=== PATIENT | female | born 1960 | race Caucasian/White ===

== ENCOUNTER 2016-11-10 23:19 | Emergency (ER) | payer OTHER ==
[2016-11-10 23:29] VITALS: TEMP 99.1
[2016-11-10] MEDS ORDERED: SODIUM CHLORIDE 0.9% 1,000 ML IV STA (23:46)
[2016-11-10] MEDS ORDERED: ONDANSETRON 4 MG/2 ML VIAL IVP STA (23:46)
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
[2016-11-11 00:27] LABS: Basophils % (A) 1 %; CH 33.4; CHCM 34.7; Eosinophils % (A) 1 %; HCT 43.1 % (34.0-46.0); HDW 2.31; HGB 14.3 gm/dL (11.4-16.0); Luc # (Auto) 0.08; Luc % (Auto) 3; Lymphocytes # (A) 0.9 k/uL (1.0-4.8); Lymphocytes % (A) 32 %; MCH 32.1 pg (25.0-35.0); MCHC 33.3 g/dL (31.0-37.0); MCV 96.6 fL (80.0-100.0); Mean Platelet Volume 9.1; Monocytes # (A) 0.2 k/uL (0-1.0); Monocytes % (A) 8 %; Neutrophils # (A) 1.6 k/uL (1.3-7.7); Neutrophils % (A) 56 %; RBC 4.46 m/uL (3.80-5.40); RDW 14.2 % (11.5-15.5); WBC 2.8 k/uL (3.8-10.6); WBC (Perox) 2.83
--- NOTE | 2016-11-11 00:36 | CT ---
EXAMINATION TYPE: CT brain wo con DATE OF EXAM: 11/11/2016 12:03 AM COMPARISON: 04/11/2016 HISTORY: syncopal episode, positive LOC, EtOH CT DLP: 961 mGycm Automated exposure control for dose reduction was used. FINDINGS: There is no acute intracranial hemorrhage, mass effect, or midline shift identified. The cortical sul ci and ventricles are slightly prominent with mild atrophic changes. The globes are intact and the vi sualized sinuses are clear. Earrings are noted with multiple artifacts in the images. IMPRESSION: No acute intracranial hemorrhage, mass effect, or midline shift is seen.
[2016-11-11 00:37] LABS: ALT 182 U/L (9-52); AST 279 U/L (14-36); Alkaline Phosphatase 60 U/L (38-126); Amylase 35 U/L (30-110); Anion Gap 17 mmol/L; Blood Urea Nitrogen 10 mg/dL (7-17); Calcium 9.4 mg/dL (8.4-10.2); Carbon Dioxide 29 mmol/L (22-30); Chloride 99 mmol/L (98-107); Glucose 123 mg/dL (74-99); Magnesium 1.7 mg/dL (1.6-2.3); Non-African American GFR(MDRD) >60 (>60 ml/min/1.73 sqM); Potassium 3.6 mmol/L (3.5-5.1); Sodium 145 mmol/L (137-145); Total Bilirubin 0.6 mg/dL (0.2-1.3)
[2016-11-11 00:38] LABS: Alcohol 297 mg/dL
[2016-11-11 00:47] LABS: Creatine Kinase 417 U/L (30-135)
[2016-11-11 01:00] LABS: Creatine Kinase MB 1.3 ng/mL (0.0-2.4); Troponin I <0.012 ng/mL (0.000-0.034)
[2016-11-11 01:15] VITALS: BP 156/79; PULSE 96; RESP 18
--- NOTE | 2016-11-11 01:16 | XR ---
EXAMINATION TYPE: XR chest 1V portable DATE OF EXAM: 11/11/2016 12:03 AM COMPARISON: 08/01/2015 HISTORY: Syncope positive for ALOC EtOH. TECHNIQUE: Single frontal view of the chest is obtained. Portable AP upright FINDINGS: There is no focal air space opacity, pleural effusion, or pneumothorax seen. The cardiac silhouette size is within normal limits. The osseous structures are intact. IMPRESSION: 1. No acute process. 2. No significant interval change.
== END 2016-11-11 01:38 | disposition home or self-care (01) ==
LOC: EC 23:19
DX: F10.129 Alcohol abuse with intoxication, unspecified (principal); S09.90XA Unspecified injury of head, initial encounter; Z79.899 Other long term (current) drug therapy; J45.909 Unspecified asthma, uncomplicated; E07.9 Disorder of thyroid, unspecified; F31.9 Bipolar disorder, unspecified; F41.9 Anxiety disorder, unspecified; Z85.850 Personal history of malignant neoplasm of thyroid; Z88.1 Allergy status to other antibiotic agents; Z88.8 Allergy status to other drugs, medicaments and biological substances; X58.XXXA Exposure to other specified factors, initial encounter
CPT/HCPCS: 99285; 96374; 36415; 93005; 80053; 82150; 82550; 82553; 83690; 83735; 84484; 85025; 80320; 71010; 70450; J2405

== ENCOUNTER 2016-12-21 15:29 | Inpatient (IN) | payer MEDICAID, OTHER ==
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
[2016-12-21 17:30] LABS: ALT 237 U/L (9-52); AST 441 U/L (14-36); Alkaline Phosphatase 69 U/L (38-126); Anion Gap 19 mmol/L; Blood Urea Nitrogen 8 mg/dL (7-17); Calcium 9.5 mg/dL (8.4-10.2); Carbon Dioxide 26 mmol/L (22-30); Chloride 96 mmol/L (98-107); Glucose 82 mg/dL (74-99); Non-African American GFR(MDRD) >60 (>60 ml/min/1.73 sqM); Sodium 141 mmol/L (137-145); Total Protein 7.8 g/dL (6.3-8.2)
[2016-12-21 17:50] LABS: Aty Lym Flag Slight; CH 34.4; CHCM 35.1; HCT 38.3 % (34.0-46.0); HDW 2.11; MCH 33.4 pg (25.0-35.0); MCV 98.1 fL (80.0-100.0); Macrocytosis Slight; Mean Platelet Volume 8.3; RBC 3.91 m/uL (3.80-5.40); RDW 15.9 % (11.5-15.5); WBC 2.5 k/uL (3.8-10.6); WBC (Perox) 2.48
[2016-12-21 18:42] LABS: Add Differential Manual Differential
[2016-12-21 18:46] LABS: Nucleated Red Blood Cells 0 /100 WBC (0-0); Total Cells Counted 100
[2016-12-21 18:48] LABS: Acetaminophen <10.0 ug/mL; Salicylate <1.0 mg/dL
[2016-12-21] MEDS ORDERED: LORazepam 1 MG TAB PO STA (18:51)
[2016-12-21] MEDS: ONDANSETRON ODT 4 MG TAB PO STA (19:01)
[2016-12-21 19:03] LABS: Polychromasia Present
[2016-12-21 19:04] LABS: Large Platelets Present
[2016-12-22] MEDS ORDERED: LORazepam 1 MG TAB PO STA ×2 (03:38→09:58)
[2016-12-22] MEDS: ONDANSETRON ODT 4 MG TAB PO STA ×2 (03:45→03:49)
[2016-12-22] MEDS ORDERED: ONDANSETRON 4 MG TAB PO STA (03:46)
[2016-12-22] MEDS ORDERED: ONDANSETRON ODT 4 MG TAB PO STA (03:48)
[2016-12-22] MEDS ORDERED: MAG HYDROX/AL HYDROX/SIMETH 30 ML CUP PO PRN (05:18)
[2016-12-22] MEDS ORDERED: MAGNESIUM HYDROXIDE 2,400 MG/10 ML CUP PO PRN (05:18)
[2016-12-22] MEDS ORDERED: ZIPRASIDONE 20 MG VIAL IM PRN (05:18)
[2016-12-22] MEDS ORDERED: ACETAMINOPHEN TAB 325 MG TAB PO PRN (05:18)
[2016-12-22] MEDS ORDERED: LORazepam 1 MG TAB PO PRN (05:22)
[2016-12-22] MEDS ORDERED: LORazepam 2 MG/ML SYRINGE IM PRN (05:22)
[2016-12-22] MEDS ORDERED: LEVOTHYROXINE 100 MCG TAB PO SCH (06:30)
[2016-12-22] MEDS: LEVOTHYROXINE 100 MCG TAB PO SCH (06:43)
[2016-12-22] MEDS: LEVOTHYROXINE 75 MCG TAB PO SCH (06:43)
[2016-12-22] MEDS ORDERED: NON-FORMULARY DRUG (Levothyroxine Sodium [Synthroid] 175 MCG) PO SCH (09:00)
[2016-12-22] MEDS ORDERED: LEVOTHYROXINE 75 MCG TAB PO SCH (09:00)
[2016-12-22] MEDS ORDERED: ESCITALOPRAM 20 MG TAB PO SCH (09:00)
[2016-12-22] MEDS: lamoTRIgine 100 MG TAB PO SCH ×2 (10:00→21:31)
[2016-12-22 10:15] VITALS: BMI 29.8
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
[2016-12-22] MEDS: THIAMINE 100 MG TAB PO SCH (13:01)
[2016-12-22] MEDS: FOLIC ACID 1 MG TAB PO SCH (13:01)
[2016-12-22] MEDS ORDERED: IBUPROFEN 600 MG TAB PO PRN (14:31)
[2016-12-22] MEDS: LORazepam 1 MG TAB PO SCH ×2 (15:44→21:32)
[2016-12-22] MEDS: cloNIDine HCL 0.1 MG TAB PO PRN (16:00)
[2016-12-22] MEDS: DOXYCYCLINE 50 MG CAP PO SCH (18:35)
[2016-12-22] MEDS: traZODone HCL 100 MG TAB PO SCH (21:31)
[2016-12-22] MEDS: MONTELUKAST 10 MG TAB PO SCH (21:31)
[2016-12-22] MEDS: GABAPENTIN 100 MG CAP PO SCH (21:32)
[2016-12-23] MEDS: LEVOTHYROXINE 75 MCG TAB PO SCH (05:27)
[2016-12-23] MEDS: LEVOTHYROXINE 100 MCG TAB PO SCH (05:27)
[2016-12-23] MEDS: LORazepam 1 MG TAB PO PRN (05:27)
[2016-12-23] MEDS: DOXYCYCLINE 50 MG CAP PO SCH ×2 (08:13→16:59)
--- NOTE | 2016-12-23 09:11 | P.PN ---
Progress Note - Text Interval history: The patient is found in group she follows me to an interview room. She reports that her mood is "uneasy" she still has hopeless thoughts she still has thoughts of jumping in front of the train. She reports sleeping most of the day yesterday but plans on attending groups today. We reviewed her psychotropic medications. I did speak with the [facility] liaison and we are able to give her the Vivitrol injection we will provide a sample. We will also order a Lamictal level. Mental status exam: The patient is alert she is dressed in a T-shirt and hospital gowns. She wears eyeglasses. She continues to demonstrate tremor of her upper extremities. She states her mood is "uneasy". She continues to have hopeless thoughts and suicidal ideation. No homicidal ideation reported. She is endorsing no auditory or visual hallucinations. She has a history of hypomanic episodes but demonstrates no hypomanic or manic symptoms at this time. Insight and judgment impaired. She is oriented to person place and date. There is no verbal or physical aggressiveness demonstrated. Affect is constricted. Plan: The patient will continue on her current psychotropic medications. She will receive the Vivitrol injection today, we will order a Lamictal level. She is encouraged to participate in the milieu. She does not wish to participate in inpatient chemical dependency treatment upon discharge. She requires continued psychiatric hospitalization for safety reasons. We will continue monitoring vital signs.
[2016-12-23 09:26] LABS: Basophils % (A) 1 %; CH 33.9; CHCM 33.7; Eosinophils # (A) 0.1 k/uL (0-0.7); Eosinophils % (A) 4 %; HCT 43.5 % (34.0-46.0); HDW 2.18; HGB 14.2 gm/dL (11.4-16.0); Luc # (Auto) 0.07; Luc % (Auto) 2; Lymphocytes # (A) 0.6 k/uL (1.0-4.8); Lymphocytes % (A) 20 %; MCH 32.9 pg (25.0-35.0); MCHC 32.6 g/dL (31.0-37.0); MCV 100.8 fL (80.0-100.0); Macrocytosis Slight; Mean Platelet Volume 8.3; Monocytes # (A) 0.2 k/uL (0-1.0); Monocytes % (A) 6 %; Neutrophils # (A) 2.1 k/uL (1.3-7.7); Neutrophils % (A) 67 %; RBC 4.31 m/uL (3.80-5.40); RDW 15.6 % (11.5-15.5); WBC 3.1 k/uL (3.8-10.6); WBC (Perox) 3.01
[2016-12-23 09:32] LABS: ALT 235 U/L (9-52); AST 381 U/L (14-36); Alkaline Phosphatase 71 U/L (38-126); Anion Gap 13 mmol/L; Blood Urea Nitrogen 8 mg/dL (7-17); Calcium 9.8 mg/dL (8.4-10.2); Carbon Dioxide 32 mmol/L (22-30); Chloride 92 mmol/L (98-107); Glucose 112 mg/dL (74-99); Non-African American GFR(MDRD) >60 (>60 ml/min/1.73 sqM); Potassium 4.1 mmol/L (3.5-5.1); Sodium 137 mmol/L (137-145); Total Bilirubin 1.4 mg/dL (0.2-1.3); Total Protein 8.3 g/dL (6.3-8.2)
[2016-12-23] MEDS: ESCITALOPRAM 20 MG TAB PO SCH (10:12)
[2016-12-23] MEDS: lamoTRIgine 100 MG TAB PO SCH ×2 (10:12→20:51)
[2016-12-23] MEDS: LORazepam 1 MG TAB PO SCH ×3 (10:12→22:25)
[2016-12-23] MEDS: cloNIDine HCL 0.1 MG TAB PO PRN (10:15)
[2016-12-23] MEDS: FOLIC ACID 1 MG TAB PO SCH (12:45)
[2016-12-23] MEDS: MULTIVITAMINS, THERA 1 EACH TAB PO SCH (12:45)
[2016-12-23] MEDS: THIAMINE 100 MG TAB PO SCH (12:46)
[2016-12-23] MEDS ORDERED: NALTREXONE IM ONE (14:30)
[2016-12-23] MEDS ORDERED: VIVITROL IM ONE (14:45)
--- NOTE | 2016-12-23 15:03 | P.HPIM ---
History of Present Illness H&P Date: 12/22/16 Chief Complaint: Suicidal ideation Patient is a 56-year-old female well known to my practice who presented to [facility] due to worsening depression with suicidal ideation, she was evaluated in the emergency room and was admitted to mental health's unit voluntarily for management of depression. Patient has a known history of alcohol binge drinking, she went to rehab in October, she did well for a short while, then she started drinking again, when she has binge drinking she continues to drink until she gets sick she uses all alcohol that she can get including hairspray and cleaning products, until she starts vomiting. Patient was recently treated for acute bronchitis she still complains of some cough otherwise she denies any physical complaints She has a known history of hypothyroidism Past Medical History Past Medical History: Asthma, Cancer, Hypertension, Thyroid Disorder Additional Past Medical History / Comment(s): seasonal allergies, history of thyroid cancer-thyroidectomy, psoriasis, current breast cyst in right breast, alcoholic, left breast has stable benign tumor , BROKE RT FOOT PINKY TOE. etoh abuse History of Any Multi-Drug Resistant Organisms: None Reported Additional Past Surgical History / Comment(s): Thyroidectomy 1999, SKIN NEVI REMOVED Past Anesthesia/Blood Transfusion Reactions: Previous Problems w/ Anesthesia, Postoperative Nausea & Vomiting (PONV) Additional Past Anesthesia/Blood Transfusion Reaction / Comment(s): Pt lives with in their home. They have been together 12 yrs. Pt is normally independent. Pt is an alcoholic. She is feeling more depressed lately and ashamed of her alcoholism. PT STATED SHE IS A BINGE DRINKER AND IS A BLACK OUT DRINKER,THINKS SHE STARTED DRINKING 4-5 DAYS AGO 3 PINTS A DAY AND WHEN COMING DOWN DRANK SUAVE HAIR SPRAY( does not allow alcohol in the home so pt has drinks hand trace evidence technician or hair spray per her ). Pt no longer has a drivers license- she has had 2 DUI's. 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 She is seen at [facility] by Dr. Baez and has a councelor-NICO. She has alot of anabaptism friends. drives her to her appts. Past Psychological History: Anxiety, Bipolar, Depression Additional Psychological History / Comment(s): Multiple psychiatric admissions in the past at this hospital. PT ADMITS TO DEPRESSION AND SUIDIAL THOUGHTS, "AT NIGHT WHEN I HEAR THE TRAIN" WHEN I ASKED IF SHE HAD A PLAN SHE STATED"THE TRAIN "-current suicidal ideation 09-15-16 Smoking Status: Never smoker Past Alcohol Use History: Abuse, Daily, Heavy Additional Past Alcohol Use History / Comment(s): Pt agrees she is an alcoholic for greater than 20 years and come from a family hx of abuse. Past Drug Use History: None Reported - Past Family History Father Family Medical History: Cancer Additional Family Medical History / Comment(s): Father at age 64 of esophageal cancer. Father was an alcoholic and had cirrhosis of the liver. Mother Family Medical History: Cancer Additional Family Medical History / Comment(s): Mother of breast cancer at age 42yrs. Medications and Allergies Home Medications Medication Instructions Recorded Confirmed Type Escitalopram [Lexapro] 10 mg PO DAILY 11/10/16 12/22/16 History Levothyroxine Sodium [Synthroid] 175 mcg PO DAILY 11/10/16 12/22/16 History Allergies Allergy/AdvReac Type Severity Reaction Status Date / Time clindamycin Allergy Unknown Rash/Hives Verified 12/22/16 05:32 acetylcysteine Allergy Anaphylaxis Verified 12/22/16 05:32 [From Mucomyst] chlordiazepoxide HCl AdvReac Hallucinati Verified 12/22/16 05:32 [From Librium] ons citalopram [From Celexa] AdvReac Hallucinati Verified 12/22/16 05:32 ons diphenhydramine HCl AdvReac Rapid Verified 12/22/16 05:32 [From Benadryl] Heart Rate Physical Exam Vitals: Vital Signs Temp Pulse Pulse Pulse Resp BP BP 12/22/16 15:46 102 H 151/89 12/22/16 09:46 98.2 F 81 18 12/22/16 05:00 98.2 F 81 18 12/22/16 04:55 98.9 F 74 16 138/90 BP Pulse Ox 12/22/16 15:46 12/22/16 09:46 129/81 12/22/16 05:00 129/81 95 12/22/16 04:55 94 L Intake and Output 12/22/16 12/22/16 12/22/16 06:59 14:59 22:59 Other: Weight 76.345 kg Patient Weight 12/23/16 06:59 Weight 76.345 kg In general patient is alert and oriented 3 in no apparent distress HEENT head normocephalic and atraumatic Neck is supple no JVD no goiter no lymphadenopathy Chest exam reveals a few scattered crackles no wheezing Cardiac exam reveals regular heart sounds no gallops no murmurs Abdomen is soft nontender no organomegaly Extremity exam reveals no edema no cyanosis or clubbing Neurological examination reveals bilateral hand tremors otherwise no focal deficit at this time Results CBC & Chem 7: 12/21/16 17:00 12/21/16 17:00 Thrombosis Risk Factor Assmnt - Choose All That Apply Any of the Below Risk Factors Present?: Yes Each Factor Represents 1 point: Age 41-60 years Other Risk Factors: No Other congenital or acquired thrombophilia - If yes, enter type in comment: No Thrombosis Risk Factor Assessment Total Risk Factor Score: 1 Thrombosis Risk Factor Assessment Level: Low Risk Assessment and Plan Plan: #1 depression with suicidal ideation #2 history of alcohol binge drinking with evidence of early withdrawal #3 partially treated acute bronchitis #4 known history of hypothyroidism, TSH was elevated at 32.9 on admission #5 elevated liver enzymes will monitor At this time will resume home medications, add oral antibiotic for bronchitis Will follow during this admission
[2016-12-23] MEDS: traZODone HCL 100 MG TAB PO SCH (20:51)
[2016-12-23] MEDS: MONTELUKAST 10 MG TAB PO SCH (20:51)
[2016-12-23] MEDS: GABAPENTIN 100 MG CAP PO SCH (20:51)
[2016-12-23] MEDS: ALBUTEROL INHALER 60 PUFF/8 GM INHALER INHALATION PRN (21:20)
[2016-12-24] MEDS: LEVOTHYROXINE 75 MCG TAB PO SCH (06:32)
[2016-12-24] MEDS: LEVOTHYROXINE 100 MCG TAB PO SCH (06:33)
--- NOTE | 2016-12-24 08:45 | P.PN ---
Progress Note - Text Interval history: The patient is found in the dining room she follows me to an interview room she reports that slowly her mood is improving. She feels the suicidal thoughts are decreasing each day. Physically she is noticing that alcohol withdrawal is improving. She reports she attended approximately 3 groups yesterday sleep is improving. We reviewed her lab results her liver enzymes have been markedly elevated they did slightly decreased over the last 2 days. We are awaiting results from the Lamictal level. Mental status exam: The patient is alert she is dressed in her own clothing hygiene grooming adequate. Her tremor is much improved. Speech is fluent spontaneous nonpressured. She reports a continued depressed and anxious mood but feels that the suicidal thoughts are starting to become less severe. Affect remains constricted. She denies having any homicidal ideation there is no evidence of psychosis she does not appear to be hypomanic or manic at this time. Insight and judgment improving however she still does not wish to attend inpatient chemical dependency treatment. She demonstrates no verbal or physical aggressiveness. She remains fully oriented to person place and date. Plan: The patient will continue on her current medications we will discontinue the scheduled Ativan and use the when necessary Ativan. Vital signs reviewed they're completely within normal limits. Labs reviewed TSH is high liver enzymes are high bilirubin was mildly high. She is encouraged to continue participating in the milieu we will monitor her for safety. I anticipate she may be appropriate for discharge by Tuesday we will continue to reassess her for safety.
[2016-12-24] MEDS: DOXYCYCLINE 50 MG CAP PO SCH ×2 (09:23→17:15)
[2016-12-24] MEDS: lamoTRIgine 100 MG TAB PO SCH ×2 (09:23→20:37)
[2016-12-24] MEDS: LORazepam 1 MG TAB PO PRN (09:24)
[2016-12-24] MEDS: ESCITALOPRAM 20 MG TAB PO SCH (09:24)
[2016-12-24] MEDS: ONDANSETRON 4 MG TAB PO PRN ×2 (10:29→17:15)
[2016-12-24] MEDS: MULTIVITAMINS, THERA 1 EACH TAB PO SCH (12:26)
[2016-12-24] MEDS: FOLIC ACID 1 MG TAB PO SCH (12:26)
[2016-12-24] MEDS: THIAMINE 100 MG TAB PO SCH (12:26)
[2016-12-24] MEDS: GABAPENTIN 100 MG CAP PO SCH (20:36)
[2016-12-24] MEDS: MONTELUKAST 10 MG TAB PO SCH (20:36)
[2016-12-24] MEDS: traZODone HCL 100 MG TAB PO SCH (20:36)
[2016-12-24] MEDS: ALBUTEROL INHALER 60 PUFF/8 GM INHALER INHALATION PRN (20:40)
[2016-12-25] MEDS: LEVOTHYROXINE 75 MCG TAB PO SCH (06:21)
[2016-12-25] MEDS: LEVOTHYROXINE 100 MCG TAB PO SCH (06:21)
[2016-12-25] MEDS: ESCITALOPRAM 20 MG TAB PO SCH (08:34)
[2016-12-25] MEDS: DOXYCYCLINE 50 MG CAP PO SCH ×2 (08:34→16:30)
[2016-12-25] MEDS: lamoTRIgine 100 MG TAB PO SCH ×2 (08:34→20:51)
[2016-12-25] MEDS: cloNIDine HCL 0.1 MG TAB PO PRN ×2 (09:41→20:57)
[2016-12-25] MEDS: ALBUTEROL INHALER 60 PUFF/8 GM INHALER INHALATION PRN ×2 (10:50→18:54)
[2016-12-25] MEDS: FOLIC ACID 1 MG TAB PO SCH (12:16)
[2016-12-25] MEDS: THIAMINE 100 MG TAB PO SCH (12:16)
[2016-12-25] MEDS: MULTIVITAMINS, THERA 1 EACH TAB PO SCH (12:16)
--- NOTE | 2016-12-25 14:48 | P.PN ---
Progress Note - Text Interval history: Patient seen in cross coverage for Dr. Moran today. She reports that her mood is doing better. She relays that she was admitted with depression and thoughts of suicide. She relays the thoughts of suicide have resolved. She does talk about discharge planning for Tuesday. She is currently on Lexapro, Lamictal and trazodone. She talks about her thyroid functions being off wanting to follow-up with the specialist. Mental status exam: She is alert and cooperative with the interview. Her speech is fluent, not rapid or pressured. Her affect does show range. She denies any current thoughts of suicide. She does not voice any thoughts of harm to others. Her mood overall is improved. She does not show any agitation or evidence of psychosis. Her thought processes are organized. Plan: We'll maintain current psychotropic medications. Monitor for any side effects. Will continue to cover for Dr. Moran through the weekend.
[2016-12-25] MEDS: GABAPENTIN 100 MG CAP PO SCH (20:51)
[2016-12-25] MEDS: traZODone HCL 100 MG TAB PO SCH (20:52)
[2016-12-25] MEDS: MONTELUKAST 10 MG TAB PO SCH (20:52)
[2016-12-26] MEDS: LEVOTHYROXINE 75 MCG TAB PO SCH (05:34)
[2016-12-26] MEDS: LEVOTHYROXINE 100 MCG TAB PO SCH (05:34)
[2016-12-26] MEDS: cloNIDine HCL 0.1 MG TAB PO PRN ×2 (08:33→20:46)
[2016-12-26] MEDS: DOXYCYCLINE 50 MG CAP PO SCH ×2 (08:33→16:44)
[2016-12-26] MEDS: ESCITALOPRAM 20 MG TAB PO SCH (08:33)
[2016-12-26] MEDS: lamoTRIgine 100 MG TAB PO SCH ×2 (09:04→20:45)
[2016-12-26] MEDS: ALBUTEROL INHALER 60 PUFF/8 GM INHALER INHALATION PRN ×2 (10:17→20:54)
[2016-12-26] MEDS: MULTIVITAMINS, THERA 1 EACH TAB PO SCH (12:28)
[2016-12-26] MEDS: THIAMINE 100 MG TAB PO SCH (12:28)
[2016-12-26] MEDS: FOLIC ACID 1 MG TAB PO SCH (12:29)
--- NOTE | 2016-12-26 14:40 | P.PN ---
Progress Note - Text Interval history: Patient reports that she did sleep well last night. She also states that she is eating well. She talks about disappointment that her wasn't able to come for visiting last night because he had a flat tire but she dealt with this okay. She does talk about discharge planning for tomorrow. She does not voice any adverse psychotropic medication side effects. She seems to relay that she's doing better with her energy level. Mental status exam: She is alert and cooperative with the interview. Speech is fluent, not rapid or pressured. Thought processes are organized. Her mood is improved. She denies any thoughts of harm to self or others. No evidence of psychosis or agitation. Plan: Patient be maintained on current psychotropic medications. Dr. Moran will be resuming care of this patient starting tomorrow. Discharge planning is in place for tomorrow.
[2016-12-26] MEDS: ONDANSETRON 4 MG TAB PO PRN (18:21)
[2016-12-26] MEDS: MONTELUKAST 10 MG TAB PO SCH (20:45)
[2016-12-26] MEDS: GABAPENTIN 100 MG CAP PO SCH (20:45)
[2016-12-26] MEDS: traZODone HCL 100 MG TAB PO SCH (20:45)
[2016-12-27] MEDS: LEVOTHYROXINE 75 MCG TAB PO SCH (05:56)
[2016-12-27] MEDS: LEVOTHYROXINE 100 MCG TAB PO SCH (05:56)
[2016-12-27 05:57] VITALS: RESP 18; TEMP 97.8
[2016-12-27] MEDS: DOXYCYCLINE 50 MG CAP PO SCH (08:29)
[2016-12-27] MEDS: ESCITALOPRAM 20 MG TAB PO SCH (08:29)
[2016-12-27] MEDS: lamoTRIgine 100 MG TAB PO SCH (08:29)
[2016-12-27] MEDS: cloNIDine HCL 0.1 MG TAB PO PRN (08:29)
[2016-12-27 08:31] VITALS: BP 126/86; PULSE 71
--- NOTE | 2016-12-27 09:09 | P.DS ---
Providers Date of admission: 12/22/16 04:49 Expected date of discharge: 12/27/16 Attending physician: Ben Moran Consults: 12/22/16 05:18 Consult Physician Routine Consulting Provider: Karan Huitron Consult Reason/Comments: For H & P for Medical Follow Up Do you want consulting provider notified?: Yes, Notify in am Primary care physician: Karan Huitron - Discharge Diagnosis(es) (1) Bipolar II disorder Current Visit: Yes Status: Acute Priority: High (2) Alcohol use disorder Current Visit: Yes Status: Acute Priority: High Hospital Course: Brief summary of admission note: This patient is a 56-year-old female who was admitted to the mental health unit through the emergency room with suicidal ideation. She presented reporting a plan of wanting to stand on train tracks and wait for the next training. She describes a depressed mood low energy and has been frequently tearful. Appetite has been impaired. This occurs in the context of having a history of bipolar 2 disorder. She has a known history of alcohol use disorder and she stated she would frequently go on for to 5 day binges consuming a pint a day plus hairspray. For full details please refer to my psychiatric evaluation dated . Summary of hospital course: The patient was admitted to the mental health unit voluntarily. We reviewed her presenting symptoms and medication options. She reported that her psychotropic medications provided stability and we saw no reason to make any changes during the admission. A Lamictal level was drawn which was found to be 4.5 which is within the normal range. She presented with markedly elevated liver enzymes those were checked again and they are starting to slowly decline. She was seen by the double end tenoner setter for routine medical consultation. The patient was evaluated and treated for alcohol withdrawal symptoms. We were able to successfully taper her off of Ativan. Vital signs are stable. Of course we recommended inpatient chemical dependency treatment but the patient is not willing to attend. We were able to restart her Vivitrol injection. The patient participated in the milieu she demonstrated no agitated behavior. A support meeting is scheduled for this morning involving her . She plans to return back to [facility]. She reports a resolution of any suicidal ideation and feels she is appropriate for transition back to outpatient care. Mental status exam: The patient is an alert female appearing her stated age. She is dressed in her own clothing she is wearing eyeglasses. Eye contact is appropriate speech is fluent spontaneous nonpressured. She reports her mood is improved she is reporting no hopelessness thinking or suicidal ideation intent or plan. No reported homicidal ideation intent or plan. She is endorsing no auditory or visual hallucinations or specific delusions. There is no evidence of psychosis. There is no evidence of hypomanic or manic symptoms at this time. Her affect is more euthymic and appropriately expressive. Insight and judgment grossly intact. Cognitively she is grossly intact and is alert to person place and date. She demonstrates no verbal or physical aggressiveness. There is no psychomotor agitation except for her continued baseline tremor of her upper extremities. This tremor is greatly improved in terms of amplitude compared to admission. Impressions: 1. Bipolar 2 disorder most recent depressed, alcohol use disorder 2. Suspect borderline personality disorder traits 3. Alcohol withdrawal symptoms resolved, hypothyroidism, asthma 4. Ongoing psychosocial dysfunction due to psychiatric symptoms including alcohol use disorder Plan: The patient will be discharged mental health unit today to return home. Our recommendation was for her to participate in inpatient chemical dependency treatment but she is refusing. She plans to continue chemical dependency treatment as an outpatient with [facility]. She was given the injection of Vivitrolwhile on the mental health unit. She will continue on Lamictal 100 mg in the morning 200 mg in the evening, Lexapro 20 mg daily, trazodone 100 mg at bedtime. She will follow with her primary care physician. She is instructed not to use alcohol or any illicit drugs. The use of alcohol or any illicit drugs obviously elevates her safety risk in general. She is instructed to return to the emergency room if any acute safety concerns. Patient Condition at Discharge: Stable Plan - Discharge Summary New Discharge Prescriptions: Doxycycline [Vibramycin] 100 mg PO AC-BID #2 cap Folic Acid 1 mg PO DAILY@1200 #30 tab Levothyroxine Sodium [Synthroid] 175 mcg PO DAILY #30 tablet Thiamine [Vitamin B-1] 100 mg PO DAILY@1200 #30 tab Discharge Medication List Escitalopram [Lexapro] 20 mg PO DAILY #30 tab 09/29/16 [Rx] Gabapentin [Neurontin] 200 mg PO HS #30 cap 09/29/16 [Rx] Montelukast [Singulair] 10 mg PO HS #30 tab 09/29/16 [Rx] lamoTRIgine [LaMICtal] 100 mg PO DAILY #30 tab 09/29/16 [Rx] lamoTRIgine [LaMICtal] 200 mg PO HS #30 tab 09/29/16 [Rx] traZODone HCL [Desyrel] 100 mg PO HS #30 tab 09/29/16 [Rx] Doxycycline [Vibramycin] 100 mg PO AC-BID #2 cap 12/27/16 [Rx] Folic Acid 1 mg PO DAILY@1200 #30 tab 12/27/16 [Rx] Levothyroxine Sodium [Synthroid] 175 mcg PO DAILY #30 tablet 12/27/16 [Rx] Multivitamins, Thera [Multivitamin] 1 each PO DAILY@1200 tab 12/27/16 [Rx] Thiamine [Vitamin B-1] 100 mg PO DAILY@1200 #30 tab 12/27/16 [Rx] [facility] 8:30 am (Ratna Bateman ) [facility] [Outside] - 12/28/16 12:00 pm (Dr Martinez) Karan Huitron MD [Primary Care Provider] - 1 Week
[2016-12-27] MEDS: THIAMINE 100 MG TAB PO SCH (11:46)
[2016-12-27] MEDS: MULTIVITAMINS, THERA 1 EACH TAB PO SCH (11:46)
[2016-12-27] MEDS: FOLIC ACID 1 MG TAB PO SCH (11:46)
== END 2016-12-27 11:48 | disposition home or self-care (01) | DRG 885 ==
LOC: EC 15:29 → 3MHU 12-22 04:49
PROVIDERS: ADMIT Psychiatry & Neurology Psychiatry; ATTEND Psychiatry & Neurology Psychiatry
DX: F31.81 Bipolar II disorder (principal); R45.851 Suicidal ideations; I10 Essential (primary) hypertension; F10.239 Alcohol dependence with withdrawal, unspecified; E03.9 Hypothyroidism, unspecified; F41.9 Anxiety disorder, unspecified; J40 Bronchitis, not specified as acute or chronic; J45.909 Unspecified asthma, uncomplicated; Z81.1 Family history of alcohol abuse and dependence; Z85.850 Personal history of malignant neoplasm of thyroid; Z79.899 Other long term (current) drug therapy; F60.3 Borderline personality disorder
CPT/HCPCS: 36415; 80053; 80175; 80306; 82075; 83520; 84443; 85025; 93005; 94640; 99285

== ENCOUNTER 2017-02-25 10:57 | Emergency (ER) | payer MEDICAID, OTHER ==
--- NOTE | 2017-02-25 11:42 | ED ---
General Adult HPI - General Chief complaint: Psychiatric Symptoms Stated complaint: mental health Time Seen by Provider: 02/25/17 11:20 Source: patient, RN notes reviewed Mode of arrival: ambulatory Limitations: no limitations - History of Present Illness Initial comments: Patient 56-year-old female who presents emergency room today with a chief complaint of suicidal ideation. She does admit to being hospitalized in the past for this. Patient does admit that she sees a therapist in constant persist for a few weeks. In taking medications as prescribed. When asked if she is suicidal as planned she states "I'm and tired of hearing the train". Patient denies any other complaints. Denies any homicidal thoughts or plans. Patient denies any recent fever, chills, shortness of breath, chest pain, back pain, abdominal pain, nausea or vomiting, numbness or tingling, dysuria or hematuria, constipation or diarrhea, headaches or visual changes, or any other complaints. - Related Data Home Medications Medication Instructions Recorded Confirmed Montelukast [Singulair] 10 mg PO HS PRN 02/25/17 02/25/17 Multivitamins, Thera [Multivitamin 1 tab PO DAILY@1200 02/25/17 02/25/17 (formulary)] Vivitrol 380mg Powder 380 mg IM Q28D 02/25/17 02/25/17 Previous Rx's Medication Instructions Recorded Escitalopram [Lexapro] 20 mg PO DAILY #30 tab 09/29/16 Gabapentin [Neurontin] 200 mg PO HS #30 cap 09/29/16 lamoTRIgine [LaMICtal] 100 mg PO DAILY #30 tab 09/29/16 lamoTRIgine [LaMICtal] 200 mg PO HS #30 tab 09/29/16 traZODone HCL [Desyrel] 100 mg PO HS #30 tab 09/29/16 Folic Acid 1 mg PO DAILY@1200 #30 tab 12/27/16 Levothyroxine Sodium [Synthroid] 175 mcg PO DAILY #30 tablet 12/27/16 Thiamine [Vitamin B-1] 100 mg PO DAILY@1200 #30 tab 12/27/16 Allergies Allergy/AdvReac Type Severity Reaction Status Date / Time clindamycin Allergy Unknown Rash/Hives Verified 02/25/17 11:41 acetylcysteine Allergy Anaphylaxis Verified 02/25/17 11:41 [From Mucomyst] chlordiazepoxide HCl AdvReac Hallucinati Verified 02/25/17 11:41 [From Librium] ons citalopram [From Celexa] AdvReac Hallucinati Verified 02/25/17 11:41 ons diphenhydramine HCl AdvReac Rapid Verified 02/25/17 11:41 [From Benadryl] Heart Rate Review of Systems ROS Statement: Those systems with pertinent positive or pertinent negative responses have been documented in the HPI. ROS Other: All systems not noted in ROS Statement are negative. Past Medical History Past Medical History: Asthma, Cancer, Hypertension, Thyroid Disorder Additional Past Medical History / Comment(s): seasonal allergies, history of thyroid cancer-thyroidectomy, psoriasis, current breast cyst in right breast, alcoholic, left breast has stable benign tumor , BROKE RT FOOT PINKY TOE. etoh abuse History of Any Multi-Drug Resistant Organisms: None Reported Additional Past Surgical History / Comment(s): Thyroidectomy 1999, SKIN NEVI REMOVED Past Anesthesia/Blood Transfusion Reactions: Previous Problems w/ Anesthesia, Postoperative Nausea & Vomiting (PONV) Additional Past Anesthesia/Blood Transfusion Reaction / Comment(s): Pt lives with in their home. They have been together 12 yrs. Pt is normally independent. Pt is an alcoholic. She is feeling more depressed lately and ashamed of her alcoholism. PT STATED SHE IS A BINGE DRINKER AND IS A BLACK OUT DRINKER,THINKS SHE STARTED DRINKING 4-5 DAYS AGO 3 PINTS A DAY AND WHEN COMING DOWN DRANK SUAVE HAIR SPRAY( does not allow alcohol in the home so pt has drinks hand translator interpreter or hair spray per her ). Pt no longer has a drivers license- she has had 2 DUI's. 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 She is seen at [facility] by Dr. Baez and has a councelor-NICO. She has alot of denominational friends. drives her to her appts. Past Psychological History: Anxiety, Bipolar, Depression Additional Psychological History / Comment(s): Multiple psychiatric admissions in the past at this hospital. PT ADMITS TO DEPRESSION AND SUIDIAL THOUGHTS, "AT NIGHT WHEN I HEAR THE TRAIN" WHEN I ASKED IF SHE HAD A PLAN SHE STATED"THE TRAIN "-current suicidal ideation 09-15-16 Smoking Status: Never smoker Past Alcohol Use History: Abuse, Daily, Heavy Additional Past Alcohol Use History / Comment(s): Pt agrees she is an alcoholic for greater than 20 years and come from a family hx of abuse. Past Drug Use History: None Reported - Past Family History Father Family Medical History: Cancer Additional Family Medical History / Comment(s): Father at age 64 of esophageal cancer. Father was an alcoholic and had cirrhosis of the liver. Mother Family Medical History: Cancer Additional Family Medical History / Comment(s): Mother of breast cancer at age 42yrs. General Exam - General Exam Comments Initial Comments: General: The patient is awake and alert, in no distress, and does not appear acutely ill. Eye: Pupils are equal, round and reactive to light, extra-ocular movements are intact. No nystagmus. There is normal conjunctiva bilaterally. No signs of icterus. Ears, nose, mouth and throat: There are moist mucous membranes and no oral lesions. Neck: The neck is supple, there is no tenderness or JVD. Cardiovascular: There is a regular rate and rhythm. No murmur, rub or gallop is appreciated. Respiratory: Lungs are clear to auscultation, respirations are non-labored, breath sounds are equal. No wheezes, stridor, rales, or rhonchi. Musculoskeletal: Normal ROM, no tenderness. Strength 5/5. Sensation intact. Pulses equal bilaterally 2+. Neurological: A&O x 3. CN II-XII intact, There are no obvious motor or sensory deficits. Coordination appears grossly intact. Speech is normal. Skin: Skin is warm and dry and no rashes or lesions are noted. Psychiatric: Cooperative, appropriate mood & affect, normal judgment. Limitations: no limitations Course Vital Signs 02/25/17 02/25/17 10:58 12:10 Temperature 98.0 F 98.3 F Pulse Rate 110 H 89 Respiratory 18 16 Rate Blood Pressure 145/98 136/92 O2 Sat by Pulse 93 L 93 L Oximetry Medical Decision Making - Medical Decision Making 1500: Case discussed in detail with attending physician Dr. Ramsay. Patient reexamined at this time shows no signs of distress. Patient resting and sitting up at the edge of the bed. States she like to be discharged home. Her is at bedside at this time states she's willing to take her home. She denies any suicidal or homicidal thoughts or plans. States she feels comfortable being discharged. is here and states feels comfortable taking her home. States he will be with her. Patient will be discharged home advised follow-up with therapist tomorrow. Advised return to emergency room for any other concerns. - Lab Data Lab Results 02/25/17 Range/Units 11:34 Urine Opiates Screen Not Detected (NotDetected) Ur Oxycodone Screen Not Detected (NotDetected) Urine Methadone Screen Not Detected (NotDetected) Ur Propoxyphene Screen Not Detected (NotDetected) Ur Barbiturates Screen Not Detected (NotDetected) U Tricyclic Antidepress Not Detected (NotDetected) Ur Phencyclidine Scrn Not Detected (NotDetected) Ur Amphetamines Screen Not Detected (NotDetected) U Methamphetamines Scrn Not Detected (NotDetected) U Benzodiazepines Scrn Not Detected (NotDetected) Urine Cocaine Screen Not Detected (NotDetected) U Marijuana (THC) Screen Not Detected (NotDetected) Disposition Clinical Impression: Alcohol intoxication Disposition: HOME SELF-CARE Condition: Stable Instructions: Depression (ED) Additional Instructions: Please follow-up with therapist tomorrow as discussed. Please return to emergency room if any symptoms increase or worsen or for any other concerns. Time of Disposition: 15:00
[2017-02-25 15:05] VITALS: BP 153/94; PULSE 100; RESP 17; TEMP 98.2
== END 2017-02-25 15:08 | disposition home or self-care (01) ==
LOC: EC 10:57
DX: F10.129 Alcohol abuse with intoxication, unspecified (principal); Z88.1 Allergy status to other antibiotic agents; Z85.850 Personal history of malignant neoplasm of thyroid; Z88.8 Allergy status to other drugs, medicaments and biological substances; Z79.899 Other long term (current) drug therapy
CPT/HCPCS: 80306; 82075; 99284

== ENCOUNTER 2017-03-01 14:36 | Inpatient (IN) | payer OTHER ==
--- NOTE | 2017-03-01 14:45 | ED ---
Psych HPI - General Source: patient, EMS, RN notes reviewed Mode of arrival: EMS Limitations: no limitations <Brandon Skelton - Last Filed: 03/01/17 15:41> <Omar Hayes - Last Filed: 03/01/17 16:44> - General Stated Complaint: Alcohol, mental health Time Seen by Provider: 03/01/17 14:39 - History of Present Illness Initial Comments: 56 year old female brought to emergency department by EMS for psychiatric evaluation. Patient was that there was office sent here because she was suicidal. Patient states she has been drinking alcohol today. Patient has a history of alcohol abuse. Patient states she drank some vodka unsure how much. Patient denies any homicidal thoughts. Denies illicit drug use. Patient is very anxious. patient denies any physical complaints. (Brandon Skelton) - Related Data Home Medications Medication Instructions Recorded Confirmed Escitalopram [Lexapro] 20 mg PO HS 03/01/17 03/01/17 Vivitrol 380mg Powder For 380 mg PO Q28D 03/01/17 03/01/17 Suspention Previous Rx's Medication Instructions Recorded Gabapentin [Neurontin] 200 mg PO HS #30 cap 09/29/16 lamoTRIgine [LaMICtal] 100 mg PO DAILY #30 tab 09/29/16 lamoTRIgine [LaMICtal] 200 mg PO HS #30 tab 09/29/16 traZODone HCL [Desyrel] 100 mg PO HS #30 tab 09/29/16 Folic Acid 1 mg PO DAILY@1200 #30 tab 12/27/16 Levothyroxine Sodium [Synthroid] 175 mcg PO DAILY #30 tablet 12/27/16 Thiamine [Vitamin B-1] 100 mg PO DAILY@1200 #30 tab 12/27/16 Allergies Allergy/AdvReac Type Severity Reaction Status Date / Time clindamycin Allergy Unknown Rash/Hives Verified 03/01/17 14:43 acetylcysteine Allergy Anaphylaxis Verified 03/01/17 14:43 [From Mucomyst] chlordiazepoxide HCl AdvReac Hallucinati Verified 03/01/17 14:43 [From Librium] ons citalopram [From Celexa] AdvReac Hallucinati Verified 03/01/17 14:43 ons diphenhydramine HCl AdvReac Rapid Verified 03/01/17 14:43 [From Benadryl] Heart Rate Review of Systems ROS Other: All systems not noted in ROS Statement are negative. <Brandon Skelton - Last Filed: 03/01/17 15:41> ROS Other: All systems not noted in ROS Statement are negative. <Omar Hayes - Last Filed: 03/01/17 16:44> ROS Statement: Those systems with pertinent positive or pertinent negative responses have been documented in the HPI. Past Medical History Past Medical History: Asthma, Cancer, Hypertension, Thyroid Disorder Additional Past Medical History / Comment(s): seasonal allergies, history of thyroid cancer-thyroidectomy, psoriasis, current breast cyst in right breast, alcoholic, left breast has stable benign tumor , BROKE RT FOOT PINKY TOE. etoh abuse History of Any Multi-Drug Resistant Organisms: None Reported Additional Past Surgical History / Comment(s): Thyroidectomy 1999, SKIN NEVI REMOVED Past Anesthesia/Blood Transfusion Reactions: Previous Problems w/ Anesthesia, Postoperative Nausea & Vomiting (PONV) Additional Past Anesthesia/Blood Transfusion Reaction / Comment(s): Pt lives with in their home. They have been together 12 yrs. Pt is normally independent. Pt is an alcoholic. She is feeling more depressed lately and ashamed of her alcoholism. PT STATED SHE IS A BINGE DRINKER AND IS A BLACK OUT DRINKER,THINKS SHE STARTED DRINKING 4-5 DAYS AGO 3 PINTS A DAY AND WHEN COMING DOWN DRANK SUAVE HAIR SPRAY( does not allow alcohol in the home so pt has drinks hand chief digital officer or hair spray per her ). Pt no longer has a drivers license- she has had 2 DUI's. 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 She is [facility] at [facility] by Dr. Baez and has a councelor-NICO. She has alot of voodoo friends. drives her to her appts. Past Psychological History: Anxiety, Bipolar, Depression Additional Psychological History / Comment(s): Multiple psychiatric admissions in the past at this hospital. PT ADMITS TO DEPRESSION AND SUIDIAL THOUGHTS, "AT NIGHT WHEN I HEAR THE TRAIN" WHEN I ASKED IF SHE HAD A PLAN SHE STATED"THE TRAIN "-current suicidal ideation 09-15-16 Smoking Status: Never smoker Past Alcohol Use History: Abuse, Daily, Heavy Additional Past Alcohol Use History / Comment(s): Pt agrees she is an alcoholic for greater than 20 years and come from a family hx of abuse. Past Drug Use History: None Reported - Past Family History Father Family Medical History: Cancer Additional Family Medical History / Comment(s): Father at age 64 of esophageal cancer. Father was an alcoholic and had cirrhosis of the liver. Mother Family Medical History: Cancer Additional Family Medical History / Comment(s): Mother of breast cancer at age 42yrs. <Brandon Skelton - Last Filed: 03/01/17 15:41> General Exam General appearance: alert, in no apparent distress, appears intoxicated Head exam: Present: atraumatic, normocephalic, normal inspection Eye exam: Present: normal appearance, PERRL, EOMI. Absent: scleral icterus, conjunctival injection, periorbital swelling ENT exam: Present: normal exam, normal oropharynx, mucous membranes moist, TM's normal bilaterally, normal external ear exam Neck exam: Present: normal inspection, full ROM. Absent: tenderness, meningismus, lymphadenopathy Respiratory exam: Present: normal lung sounds bilaterally. Absent: respiratory distress, wheezes, rales, rhonchi, stridor Cardiovascular Exam: Present: regular rate, normal rhythm, normal heart sounds. Absent: systolic murmur, diastolic murmur, rubs, gallop, clicks GI/Abdominal exam: Present: soft, normal bowel sounds. Absent: distended, tenderness, guarding, rebound, rigid Neurological exam: Present: alert, oriented X3, CN II-XII intact Psychiatric exam: Present: anxious Skin exam: Present: warm, dry, intact, normal color. Absent: rash <Brandon Skelton - Last Filed: 03/01/17 15:41> Medical Decision Making - Lab Data Result diagrams: 03/01/17 15:00 03/01/17 15:00 <Brandon Skelton - Last Filed: 03/01/17 15:41> - Lab Data Result diagrams: 03/01/17 15:00 03/01/17 15:00 <Omar Hayes - Last Filed: 03/01/17 16:44> - Medical Decision Making I saw this patient in conjunction with the physician technical administrative assistant. I performed independent history and physical exam. Agree with case management. (Omar Hayes) - Lab Data Lab Results 04/25/17 04/25/17 Range/Units 15:00 15:00 WBC 3.4 L (3.8-10.6) k/uL RBC 4.26 (3.80-5.40) m/uL Hgb 14.0 (11.4-16.0) gm/dL Hct 41.7 (34.0-46.0) % MCV 97.9 (80.0-100.0) fL MCH 33.0 (25.0-35.0) pg MCHC 33.7 (31.0-37.0) g/dL RDW 13.4 (11.5-15.5) % Plt Count 160 (150-450) k/uL Neutrophils % 50 % Lymphocytes % 36 % Monocytes % 6 % Eosinophils % 4 % Basophils % 1 % Neutrophils # 1.7 (1.3-7.7) k/uL Lymphocytes # 1.2 (1.0-4.8) k/uL Monocytes # 0.2 (0-1.0) k/uL Eosinophils # 0.1 (0-0.7) k/uL Basophils # 0.0 (0-0.2) k/uL Sodium 148 H (137-145) mmol/L Potassium 3.9 (3.5-5.1) mmol/L Chloride 111 H (98-107) mmol/L Carbon Dioxide 26 (22-30) mmol/L Anion Gap 11 mmol/L BUN 7 (7-17) mg/dL Creatinine 0.49 L (0.52-1.04) mg/dL Est GFR (MDRD) Af Amer >60 (>60 ml/min/1.73 sqM) Est GFR (MDRD) Non-Af >60 (>60 ml/min/1.73 sqM) Glucose 95 (74-99) mg/dL Calcium 9.2 (8.4-10.2) mg/dL Total Bilirubin 0.6 (0.2-1.3) mg/dL AST 45 H (14-36) U/L ALT 47 (9-52) U/L Alkaline Phosphatase 44 (38-126) U/L Total Protein 6.7 (6.3-8.2) g/dL Albumin 3.8 (3.5-5.0) g/dL Lipase 58 (23-300) U/L Serum Alcohol 400 mg/dL Disposition <Brandon Skelton - Last Filed: 03/01/17 15:41> <Omar Hayes - Last Filed: 03/01/17 16:44> Clinical Impression: Alcohol intoxication, Suicidal ideation, Depression Disposition: ADMITTED IP TO THIS HOSP Condition: Stable Referrals: Karan Huitron MD [Primary Care Provider] - 1-2 days
[2017-03-01 15:13] LABS: Basophils % (A) 1 %; CH 34.1; Eosinophils # (A) 0.1 k/uL (0-0.7); Eosinophils % (A) 4 %; HCT 41.7 % (34.0-46.0); HDW 2.37; Luc # (Auto) 0.11; Luc % (Auto) 3; Lymphocytes # (A) 1.2 k/uL (1.0-4.8); Lymphocytes % (A) 36 %; MCHC 33.7 g/dL (31.0-37.0); MCV 97.9 fL (80.0-100.0); Mean Platelet Volume 7.5; Monocytes # (A) 0.2 k/uL (0-1.0); Monocytes % (A) 6 %; Neutrophils # (A) 1.7 k/uL (1.3-7.7); Neutrophils % (A) 50 %; RBC 4.26 m/uL (3.80-5.40); RDW 13.4 % (11.5-15.5); WBC 3.4 k/uL (3.8-10.6)
[2017-03-01 15:28] LABS: ALT 47 U/L (9-52); AST 45 U/L (14-36); Alkaline Phosphatase 44 U/L (38-126); Anion Gap 11 mmol/L; Blood Urea Nitrogen 7 mg/dL (7-17); Calcium 9.2 mg/dL (8.4-10.2); Carbon Dioxide 26 mmol/L (22-30); Chloride 111 mmol/L (98-107); Glucose 95 mg/dL (74-99); Non-African American GFR(MDRD) >60 (>60 ml/min/1.73 sqM); Potassium 3.9 mmol/L (3.5-5.1); Sodium 148 mmol/L (137-145); Total Bilirubin 0.6 mg/dL (0.2-1.3); Total Protein 6.7 g/dL (6.3-8.2)
[2017-03-01 15:40] LABS: Alcohol 400 mg/dL
[2017-03-01] MEDS ORDERED: ONDANSETRON 4 MG/2 ML VIAL IVP PRN (15:42)
[2017-03-01] MEDS ORDERED: NALOXONE 0.4 MG/ML 1 ML VIAL IV PRN (15:42)
[2017-03-01] MEDS ORDERED: LORazepam 2 MG/ML SYRINGE IV PRN ×2 (15:42)
[2017-03-01] MEDS ORDERED: SODIUM CHLORIDE 0.9% 1,000 ML with MVI, ADULT NO.4 WITH VIT K 10 ML, THIAMINE 100 MG, F... IV ONE ×4 (15:44)
[2017-03-01 22:06] VITALS: RESP 16
[2017-03-02] MEDS: LORazepam 2 MG/ML SYRINGE IV PRN ×2 (05:08→08:42)
[2017-03-02 09:45] VITALS: BMI 29.7
[2017-03-02] MEDS: lamoTRIgine 100 MG TAB PO SCH (10:44)
[2017-03-02] MEDS: LEVOTHYROXINE 100 MCG TAB PO SCH (10:45)
[2017-03-02] MEDS: LEVOTHYROXINE 75 MCG TAB PO SCH (10:45)
[2017-03-02] MEDS ORDERED: THIAMINE 100 MG TAB PO SCH (12:00)
[2017-03-02] MEDS: THIAMINE 100 MG TAB PO SCH ×2 (12:48→18:37)
[2017-03-02] MEDS: FOLIC ACID 1 MG TAB PO SCH (12:49)
[2017-03-02] MEDS ORDERED: OLANZapine 5 MG TAB PO STA (13:59)
[2017-03-02] MEDS ORDERED: OLANZapine 5 MG TAB PO ONE (18:00)
--- NOTE | 2017-03-02 18:31 | P.HPIM ---
History of Present Illness H&P Date: 03/02/17 Chief Complaint: alcohol intoxication patient is a 56-year-old female was known history of excessive alcohol use in the past presented to [facility] after having a 4 day binge drinking patient states that she was drinking vodka she denies drinking any other alcohol products or cosmetic products, she states she was admitted to [place] [facility] and was discharged on Tuesday which is about 1 week ago. Patient has a prolonged history of difficulty with alcohol, she has been admitted to rehab multiple times. On presentation serum alcohol level was 400, AST was slightly elevated otherwise no abnormality seen, she was admitted to medical floor she was started on the Ciwa protocol psychiatry consultation was requested Past Medical History Past Medical History: Asthma, Cancer, Hypertension, Thyroid Disorder Additional Past Medical History / Comment(s): seasonal allergies, history of thyroid cancer-thyroidectomy, psoriasis, current breast cyst in right breast, alcoholic, left breast has stable benign tumor , BROKE RT FOOT PINKY TOE. etoh abuse History of Any Multi-Drug Resistant Organisms: None Reported Additional Past Surgical History / Comment(s): Thyroidectomy 1999, SKIN NEVI REMOVED Past Anesthesia/Blood Transfusion Reactions: Previous Problems w/ Anesthesia, Postoperative Nausea & Vomiting (PONV) Additional Past Anesthesia/Blood Transfusion Reaction / Comment(s): Pt lives with in their home. They have been together 12 yrs. Pt is normally independent. Pt is an alcoholic. She is feeling more depressed lately and ashamed of her alcoholism. PT STATED SHE IS A BINGE DRINKER AND IS A BLACK OUT DRINKER,THINKS SHE STARTED DRINKING 4-5 DAYS AGO 3 PINTS A DAY AND WHEN COMING DOWN DRANK SUAVE HAIR SPRAY( does not allow alcohol in the home so pt has drinks hand corrective therapist or hair spray per her ). Pt no longer has a drivers license- she has had 2 DUI's. 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 She is seen at [facility] by Dr. Baez and has a councelor-NICO. She has alot of lutheran friends. drives her to her appts. Past Psychological History: Anxiety, Bipolar, Depression Additional Psychological History / Comment(s): Multiple psychiatric admissions in the past at this hospital. PT ADMITS TO DEPRESSION AND SUIDIAL THOUGHTS, "AT NIGHT WHEN I HEAR THE TRAIN" WHEN I ASKED IF SHE HAD A PLAN SHE STATED"THE TRAIN "-current suicidal ideation 09-15-16 Smoking Status: Never smoker Past Alcohol Use History: Abuse, Daily, Heavy Additional Past Alcohol Use History / Comment(s): Pt agrees she is an alcoholic for greater than 20 years and come from a family hx of abuse. Past Drug Use History: None Reported - Past Family History Father Family Medical History: Cancer Additional Family Medical History / Comment(s): Father at age 64 of esophageal cancer. Father was an alcoholic and had cirrhosis of the liver. Mother Family Medical History: Cancer Additional Family Medical History / Comment(s): Mother of breast cancer at age 42yrs. Medications and Allergies Home Medications Medication Instructions Recorded Confirmed Type Escitalopram [Lexapro] 20 mg PO HS 03/01/17 03/01/17 History Vivitrol 380mg Powder For 380 mg PO Q28D 03/01/17 03/01/17 History Suspention Allergies Allergy/AdvReac Type Severity Reaction Status Date / Time clindamycin Allergy Unknown Rash/Hives Verified 03/01/17 14:43 acetylcysteine Allergy Anaphylaxis Verified 03/01/17 14:43 [From Mucomyst] chlordiazepoxide HCl AdvReac Hallucinati Verified 03/01/17 14:43 [From Librium] ons citalopram [From Celexa] AdvReac Hallucinati Verified 03/01/17 14:43 ons diphenhydramine HCl AdvReac Rapid Verified 03/01/17 14:43 [From Benadryl] Heart Rate Physical Exam Vitals: Vital Signs Temp Pulse Resp BP Pulse Ox 03/02/17 16:00 91 16 03/02/17 15:00 97.9 F 91 16 159/101 98 03/02/17 07:00 97.9 F 91 16 154/106 97 03/02/17 00:00 94 16 03/01/17 21:36 98.6 F 94 16 108/70 96 Intake and Output 03/02/17 03/02/17 03/02/17 06:59 14:59 22:59 Intake Total 400 300 Balance 400 300 Intake: IV 400 Sodium Chloride 0.9% 1, 400 000 ml @ 100 mls/hr IV . Q10H7M ONE with Mvi, Adult No.4 with Vit K 10 ml with Thiamine 100 mg with Folic Acid 1 mg Rx#: [id number] Oral 300 Other: # Voids 3 Weight 78.5 kg Patient Weight 03/03/17 06:59 Weight 78.5 kg in general patient is alert and oriented in no apparent distress HEENT head normocephalic and atraumatic Neck is supple no JVD no goiter no lymphadenopathy chest is clear to auscultation no crackles no wheezing Cardiac exam reveals regular heart sounds no gallops no murmurs Abdomen is soft nontender no organomegaly Extremity exam reveals no edema no cyanosis or clubbing Neurological examination reveals fine tremors in both hands otherwise no focal deficit Results CBC & Chem 7: 03/01/17 15:00 03/01/17 15:00 Thrombosis Risk Factor Assmnt - Choose All That Apply Any of the Below Risk Factors Present?: Yes Each Factor Represents 1 point: Age 41-60 years Other Risk Factors: No Other congenital or acquired thrombophilia - If yes, enter type in comment: No Thrombosis Risk Factor Assessment Total Risk Factor Score: 1 Thrombosis Risk Factor Assessment Level: Low Risk Assessment and Plan Plan: #1 excessive alcohol use #2 prolonged history with episodic binge drinking #3 hypernatremia #4 is mild elevation in liver enzymes At this time patient is admitted to medical floor she was started on IV fluid and CIWA protocol Psychiatry consultation was requested Recheck labs continue was current management otherwise
[2017-03-02] MEDS ORDERED: ESCITALOPRAM 20 MG TAB PO SCH (21:00)
[2017-03-02] MEDS ORDERED: lamoTRIgine 100 MG TAB PO SCH (21:00)
[2017-03-02] MEDS ORDERED: GABAPENTIN 100 MG CAP PO SCH (21:00)
[2017-03-02] MEDS ORDERED: traZODone HCL 100 MG TAB PO SCH (21:00)
[2017-03-02] MEDS: OLANZapine 5 MG TAB PO SCH (23:30)
[2017-03-03] MEDS: LEVOTHYROXINE 100 MCG TAB PO SCH (06:01)
[2017-03-03] MEDS: LEVOTHYROXINE 75 MCG TAB PO SCH (06:01)
[2017-03-03 08:01] LABS: Basophils % (A) 1 %; CH 33.8; CHCM 34.8; Eosinophils # (A) 0.3 k/uL (0-0.7); Eosinophils % (A) 8 %; HCT 42.9 % (34.0-46.0); HGB 14.6 gm/dL (11.4-16.0); Luc # (Auto) 0.07; Luc % (Auto) 1; Lymphocytes # (A) 0.7 k/uL (1.0-4.8); Lymphocytes % (A) 16 %; MCH 33.1 pg (25.0-35.0); MCV 97.4 fL (80.0-100.0); Mean Platelet Volume 8.6; Monocytes # (A) 0.2 k/uL (0-1.0); Monocytes % (A) 5 %; Neutrophils # (A) 3.2 k/uL (1.3-7.7); Neutrophils % (A) 69 %; RDW 13.3 % (11.5-15.5); WBC 4.5 k/uL (3.8-10.6); WBC (Perox) 4.36
[2017-03-03] MEDS: OLANZapine 5 MG TAB PO SCH (08:05)
[2017-03-03] MEDS: lamoTRIgine 100 MG TAB PO SCH (08:05)
[2017-03-03 08:19] VITALS: BP 143/97; PULSE 66; TEMP 98
[2017-03-03 08:29] LABS: ALT 45 U/L (9-52); AST 64 U/L (14-36); Alkaline Phosphatase 48 U/L (38-126); Anion Gap 8 mmol/L; Blood Urea Nitrogen 13 mg/dL (7-17); Calcium 9.5 mg/dL (8.4-10.2); Carbon Dioxide 28 mmol/L (22-30); Chloride 104 mmol/L (98-107); Glucose 92 mg/dL (74-99); Non-African American GFR(MDRD) >60 (>60 ml/min/1.73 sqM); Potassium 4.1 mmol/L (3.5-5.1); Sodium 140 mmol/L (137-145); Total Bilirubin 1.1 mg/dL (0.2-1.3); Total Protein 6.9 g/dL (6.3-8.2)
[2017-03-03] MEDS: FOLIC ACID 1 MG TAB PO SCH (11:34)
[2017-03-03] MEDS: THIAMINE 100 MG TAB PO SCH (11:34)
[2017-03-03] MEDS ORDERED: MULTIVITAMINS, THERA 1 EACH TAB PO SCH (12:00)
[2017-03-03] MEDS ORDERED: cloNIDine HCL 0.1 MG TAB PO SCH (12:15)
--- NOTE | 2017-03-03 12:17 | P.DS ---
Providers Date of admission: 03/01/17 16:44 Expected date of discharge: 03/03/17 Attending physician: Karan Huitron Consults: Aleyda Primary care physician: Karan Huitron [facility] Course: Discharge diagnosis 1. Alcohol intoxication 2. Alcohol abuse 3. Prolonged history with episodic binge drinking 4. Hypernatremia: Sodium level improved at 140 at discharge 5. Mild elevation of liver enzyme 6. Essential hypertension 7. Hypothyroidism Hospital course patient is a 56-year-old female was known history of excessive alcohol use in the past presented to [facility] after having a 4 day binge drinking patient states that she was drinking vodka she denies drinking any other alcohol products or cosmetic products, she states she was admitted to [place] [facility] and was discharged on Tuesday which is about 1 week ago. Patient has a prolonged history of difficulty with alcohol, she has been admitted to rehab multiple times. On presentation serum alcohol level was 400, AST was slightly elevated otherwise no abnormality seen, she was admitted to medical floor she was started on the Ciwa protocol psychiatry consultation was requested. Patient had been given IV Ativan for any withdrawal symptoms. She has not required any IV Ativan since yesterday afternoon. She has been evaluated by psychiatry in the recommending inpatient psych placement. They also added Zyprexa to her medications. Patient is medically stable for transfer to inpatient psych. Please refer to chart for any further details. Patient Condition at Discharge: Stable Plan - Discharge Summary Discharge Medication List Gabapentin [Neurontin] 200 mg PO HS #30 cap 09/29/16 [Rx] lamoTRIgine [LaMICtal] 100 mg PO DAILY #30 tab 09/29/16 [Rx] lamoTRIgine [LaMICtal] 200 mg PO HS #30 tab 09/29/16 [Rx] traZODone HCL [Desyrel] 100 mg PO HS #30 tab 09/29/16 [Rx] Folic Acid 1 mg PO DAILY@1200 #30 tab 12/27/16 [Rx] Levothyroxine Sodium [Synthroid] 175 mcg PO DAILY #30 tablet 12/27/16 [Rx] Thiamine [Vitamin B-1] 100 mg PO DAILY@1200 #30 tab 12/27/16 [Rx] Escitalopram [Lexapro] 20 mg PO HS 03/01/17 [History] Vivitrol 380mg Powder For Suspention 380 mg PO Q28D 03/01/17 [History] Multivitamins, Thera [Multivitamin (formulary)] 1 each PO DAILY@1200 tab [Rx] OLANZapine [ZyPREXA] 5 mg PO TID tab 03/03/17 [Rx] Follow up Appointment(s)/Referral(s): Karan Huitron MD [Primary Care Provider] - 1 Week Activity/Diet/Wound Care/Special Instructions: Diet: cardiac Activity: as tolerated Patient is medically stable to be transferred to the psychiatric unit Discharge Disposition: TRANSFER TO PSYCH HOSP/UNIT
--- NOTE | 2017-03-03 13:57 | CONS ---
DATE OF CONSULTATION: 03/02/2017 PURPOSE FOR CONSULTATION: Evaluate for depression and alcohol dependence. HISTORY OF PRESENTING ILLNESS: The patient was admitted after a 4-day drinking binge. She was just released from rehabilitation one week ago. Her serum alcohol level was 400. LFTs were elevated. She was admitted for detox and further evaluation. Patient provides a history that she has had multiple hospitalizations and treatment interventions. She has been on the psychiatric unit a number of times. Her last admission here was December 22, 2016, when she presented with depression, suicide thoughts involving standing on railroad tracks while a train was coming. She has a diagnosis of bipolar II disorder with a history of hypomanic episodes. She was having ongoing drinking issues with a brief period of sobriety and a relapse with 4- to 5-day binges, drinking a pint a day. She has drunk other substances such as hairspray when she could not afford to buy alcohol. She was noted to have "numerous inpatient psychiatric admissions she estimates 7 to 10." She is engaged in treatment through [facility] and sees Dr. Martinez and Ratna Bateman for outpatient therapy. At the December admission her medications included Lamictal 100 mg in the morning, 200 mg in the evening, Lexapro 20 mg a day, Neurontin 100 mg at bedtime, trazodone 100 mg at bedtime and Vivitrol 380 mg monthly. She was noted to have previously been tried on Tegretol, Topamax, Paxil and Seroquel. On this admission, medications noted above have remained the same. She describes a long-term pattern of alcohol dependence and abuse starting around age 24. She says her pattern is one where she will drink heavily for 4 or 5 days, typically a half pint to 1 pint; typically by the time she drinks 1 pint she has blackouts and is unaware of what goes on after than; then she will have a period after her drinking bout where she will avoid drinking. This will go on for 3 or 4 days and then back into drinking again. She was in a 2-week treatment program at [place] up until February 20. She notes that she has had 4 longer-term treatment programs; the longest was 14 months' admission at [facility] in [place]. She had an 8-month inpatient treatment in [place], [place]. She has also been in a 4-month and a 3-month treatment program. She notes that she has been on Vivitrol for the last 2 years; typically she receives the injections about once every other month. She gets into depression with suicidal thinking connected to her long-term psychiatric issues. She notes that she did better on Seroquel though developed restless legs and was not able to continue. She describes some episodes of what she calls "hypomania" where she will get excessive energy and decreased need for sleep. She does not really identify impulsive or disorganized behavior. She will be aware that she would be up through the night time with very little sleep and she would be quite energized; mostly she would be productive during that period of time. She has not had a hospitalization for hypomanic or manic symptoms. Since admission, in regards to alcohol withdrawal she has been doing fair. Her blood pressure has been mildly to moderately elevated. Her highest blood pressure was 154/106 at 7 this morning with a pulse of 94. She has had a normal temperature. She does not have a history of DTs or seizures relating to alcohol withdrawal. MENTAL STATUS: Patient was in her room lying down. She gave good eye contact. Psychomotor activity was a little restless. Speech was clear. She answered questions with appropriate responses. She was somewhat spontaneous and interactive. Her affect was flat, her mood reserved. She seemed moderately distressed. Cognitive exam was clear. ASSESSMENT: This is a 56-year-old female who has alcohol dependence, continuous. Her only periods of extended sobriety have been when she was in long-term substance use treatment, though she notes that she relapsed almost immediately after being discharged from those facilities. She has the support of her . Apparently her has talked to her about getting admitted to a long-term treatment program. She has significant depression issues; whether or not she clearly meets criteria for bipolar II disorder remains to be seen. I had an extensive discussion with the patient regarding withdrawal issues. At this point I will start the patient on Zyprexa 5 mg 3 times a day. The aim of Zyprexa is to help reduce physiologic stress response as it relates to early withdrawal. Whether or not she benefits from her other psychotropic medications is a question, given that she has not had any period of sobriety of significance, and she continues primarily with significant depressive symptoms. We did discuss that the focus for the first 6 to 8 weeks coming off of alcohol is simply to address alcohol withdrawal, and that treatment for depression is not likely to have much impact until after 6 to 8 weeks off of alcohol. My recommendation is to admit her to the psychiatric unit for initial treatment to help manage subacute withdrawal issues prior to her entering a longer-term treatment program.
== END 2017-03-03 16:39 | DRG 897 ==
LOC: EC 14:36 → 5MS5E 16:44
PROVIDERS: ADMIT Internal Medicine; ATTEND Internal Medicine
DX: F10.229 Alcohol dependence with intoxication, unspecified (principal); F10.239 Alcohol dependence with withdrawal, unspecified; E87.0 Hyperosmolality and hypernatremia; R45.851 Suicidal ideations; F31.81 Bipolar II disorder; E89.0 Postprocedural hypothyroidism; Y90.8 Blood alcohol level of 240 mg/100 ml or more; F41.9 Anxiety disorder, unspecified; I10 Essential (primary) hypertension; J45.909 Unspecified asthma, uncomplicated; Z79.899 Other long term (current) drug therapy; Z81.1 Family history of alcohol abuse and dependence; Z85.850 Personal history of malignant neoplasm of thyroid; Z80.3 Family history of malignant neoplasm of breast; Z88.1 Allergy status to other antibiotic agents; Z88.8 Allergy status to other drugs, medicaments and biological substances; D24.2 Benign neoplasm of left breast; R94.5 Abnormal results of liver function studies; L40.9 Psoriasis, unspecified; N60.01 Solitary cyst of right breast
CPT/HCPCS: 36415; 80053; 80320; 82075; 83690; 85025

== ENCOUNTER 2017-03-03 15:32 | Inpatient (IN) | payer MEDICAID, OTHER ==
[2017-03-03] MEDS ORDERED: ACETAMINOPHEN TAB 325 MG TAB PO PRN (15:34)
[2017-03-03] MEDS ORDERED: MAG HYDROX/AL HYDROX/SIMETH 30 ML CUP PO PRN (15:34)
[2017-03-03] MEDS: OLANZapine 5 MG TAB PO SCH ×2 (17:44→20:35)
--- NOTE | 2017-03-03 18:00 | HP ---
DATE OF SERVICE: 03/03/2017 DATE OF ADMISSION: 03/03/2017 IDENTIFYING DATA: Patient is a 56-year-old female. She lives with her . She was referred through the emergency room for medical admission and then transferred for psychiatry. CHIEF COMPLAINT: The patient was depressed. She had suicide thoughts. She was drinking excessively. She has significant anxiety. HISTORY OF PRESENTING ILLNESS: The patient was seen for psychiatric consultation on 03/02/2017. I refer the reader to that note for details. Her last psychiatric hospitalization on this unit was December 22, 2016. I refer the reader to the admission note and discharge summary of Dr. Moran for details. It is noted that since April 2014 the patient has had 25 admissions to this hospital, primarily alcohol-related, including ICU admissions for alcohol withdrawal. She has had 13 psychiatric hospitalizations during that time. She has a long history of alcohol dependence. On this admission her serum alcohol level was 400. She reports a 25-year history of "heavy drinking." [facility] and is seen [address] Dr. Martinez and Ratna Bateman for outpatient therapy. Current psychotropic medications include Lamictal 100 mg in the morning, 200 mg in the evening, Lexapro 20 mg a day, Neurontin 100 mg a day, trazodone 100 mg a day, and Vivitrol 380 mg monthly. It is noted that she typically only gets her Vivitrol injection about once every other month. She has previously been on Tegretol, Topamax, Paxil and Seroquel. She describes a long-term pattern of drinking where she will abuse alcohol for 4 or 5 days, then she will stop drinking for 4 or 5 days and then back on. This has been a continuous pattern going back for all her years of drinking. She has had a number of admissions for substance use. She was just discharged from [facility] on February 20, 2017, after a 2-week stay. She has had 4 long-term substance use treatment placements, including a 14-month placement at [facility] and an 8-month placement in [place], [place], as well as a 4-month and 3-month substance use program. She denies a history of DTs or seizures. Typically she drinks from about one half to one pint of alcohol. She says when she drinks about 1 pint she will have a blackout and then is not aware of drinking after that. She has consumed other substances, including hairspray, as an alcohol substitute. She notes that overall she probably did best on Seroquel as far as her mood instability, though it caused her restless legs and so was discontinued. The patient describes past episodes of hypomania which may last from 3 to 6 months. She believes she has had 3 episodes, including one just after graduation from high school, another when she was in college, and a third episode 2 to 3 years ago. She described gopi as being over energized and hyperverbal. She has decreased need for sleep. She reports that she did not have any impulsive or disorganized behavior. She is admitted for further evaluation. PAST MEDICAL HISTORY: As per Dr. Huitron. FAMILY AND SOCIAL HISTORY: The patient lives with her . 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 She lost her position due to drinking. She is a high school graduate. She has a past history of marriage and divorce. She has no children. She has now been for 4 years. MENTAL STATUS: Patient was in the hospital bed sitting up. She gave good eye contact. Psychomotor activity was a little restless. Speech was clear. She did have a mild tremor in her hands. She answered questions with appropriate responses. She was somewhat spontaneous and interactive. Her affect was flat, mood reserved. She was moderately distressed. On cognitive exam she was oriented x3 and alert. Recent and remote memory was intact, attention and concentration fair. She could spell "world" forward and backwards. She remembered 2 out of 3 objects at 5 minutes. Insight was uncertain, judgment uncertain, fund of knowledge average. ASSESSMENT: This 56-year-old female has long-term unremitting problems with alcohol dependence with secondary depression. It may well be that depression has not been adequately treated, which could relate to the relapses the patient has had when she enters into treatment. Long-term treatment is indicated. Psychosocial stressors are uncertain. Strengths include that patient has achieved professional standing in the past. She has awareness of the struggles she has had with persistent relapse in her drinking. Weakness includes that she has not been able to stabilize her drinking issues outside of an inpatient substance use program. DIAGNOSES: 1. Alcohol dependence, continuous, with significant intoxication on admission. 2. Major depression, chronic and recurrent, with acute exacerbation without psychotic symptoms, severe. 3. Rule out bipolar affective disorder. 4. Hypernatremia. 5. Mild elevation in liver enzymes. RECOMMENDATIONS: Patient will be admitted for comprehensive medical, psychiatric and psychosocial evaluation. Will engage the patient in individual and group therapeutic activities. I will start the patient on Zyprexa 5 mg 3 times a day. The aim of Zyprexa is to help reduce physiologic stress response as it relates to alcohol withdrawal. We will continue other psychotropic medications the same, including Lexapro 20 mg a day, Lamictal 100 mg in the morning, 200 mg at bedtime, and trazodone 100 mg a day. She will be maintained on CIWA withdrawal protocol. She currently is on clonidine 0.1 mg twice a day for hypertension. I will increase her dose to 0.2 mg twice a day, which may help reduce some symptoms relating to alcohol withdrawal and possibly cravings. Will aim toward stabilization and look for referral to a long-term substance use treatment program. [facility]
[2017-03-03] MEDS: GABAPENTIN 100 MG CAP PO SCH (20:34)
[2017-03-03] MEDS: ESCITALOPRAM 20 MG TAB PO SCH (20:34)
[2017-03-03] MEDS: traZODone HCL 100 MG TAB PO SCH (20:35)
[2017-03-03] MEDS: lamoTRIgine 100 MG TAB PO SCH (20:35)
[2017-03-04] MEDS: LEVOTHYROXINE 100 MCG TAB PO SCH (05:44)
[2017-03-04] MEDS: LEVOTHYROXINE 75 MCG TAB PO SCH (05:44)
[2017-03-04] MEDS: lamoTRIgine 100 MG TAB PO SCH ×2 (08:23→20:47)
[2017-03-04] MEDS: OLANZapine 5 MG TAB PO SCH ×3 (08:24→20:47)
[2017-03-04] MEDS ORDERED: NON-FORMULARY DRUG (Levothyroxine Sodium [Synthroid] 175 MCG) PO SCH (09:00)
[2017-03-04 10:21] LABS: Magnesium 1.8 mg/dL (1.6-2.3)
--- NOTE | 2017-03-04 11:38 | P.CONS ---
History of Present Illness - Reason for Consult Consult date: 03/04/17 Medical management Requesting physician: Richy Maynard - Chief Complaint Depression - History of Present Illness This is a 56-year-old female with a known history of alcohol dependence and multiple psychiatric admissions. She had recently been sick. She presented to the emergency room after binge drinking for about 4 days. She reports that drinking vodka. She presented with an elevated EtOH level. She was given IV fluids. Started on the multivitamin and thiamine and folic acid. She was evaluated by psychiatry. They added Zyprexa. Patient was medically stable for transfer to the psychiatric unit. We have now been consulted for medical management in the psychiatric unit. Patient reports that she is doing better. She is less tremors in her hands. She denies any abdominal pain. Denies any nausea or vomiting. Denies any chest pain or shortness of breath. Her port is been about 3-4 days without a bowel movement. Review of Systems Please refer to HPI otherwise unremarkable Past Medical History Past Medical History: Asthma, Cancer, Hypertension, Thyroid Disorder Additional Past Medical History / Comment(s): seasonal allergies, history of thyroid cancer-thyroidectomy, psoriasis, current breast cyst in right breast, alcoholic, left breast has stable benign tumor , BROKE RT FOOT PINKY TOE. etoh abuse History of Any Multi-Drug Resistant Organisms: None Reported Additional Past Surgical History / Comment(s): Thyroidectomy 1999, SKIN NEVI REMOVED Past Anesthesia/Blood Transfusion Reactions: Previous Problems w/ Anesthesia, Postoperative Nausea & Vomiting (PONV) Additional Past Anesthesia/Blood Transfusion Reaction / Comm: Pt lives with in their home. They have been together 12 yrs. Pt is normally independent. Pt is an alcoholic. She is feeling more depressed lately and ashamed of her alcoholism. 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 Pt no longer has a drivers license- she has had 2 DUI's. 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 She is seen at [facility] by Dr. Baez and has a councelor-NICO. She has alot of baptism friends. drives her to her appts. Past Psychological History: Anxiety, Bipolar, Depression Additional Psychological History / Comment(s): Multiple psychiatric admissions in the past at this hospital. PT ADMITS TO DEPRESSION AND SUIDIAL THOUGHTS, "AT NIGHT WHEN I HEAR THE TRAIN" WHEN I ASKED IF SHE HAD A PLAN SHE STATED"THE TRAIN "-current suicidal ideation 09-15-16 Smoking Status: Never smoker Past Alcohol Use History: Abuse, Daily, Heavy Additional Past Alcohol Use History / Comment(s): Pt agrees she is an alcoholic for greater than 20 years and come from a family hx of abuse. Past Drug Use History: None Reported - Past Family History Father Family Medical History: Cancer Additional Family Medical History / Comment(s): Father at age 64 of esophageal cancer. Father was an alcoholic and had cirrhosis of the liver. Mother Family Medical History: Cancer Additional Family Medical History / Comment(s): Mother of breast cancer at age 42yrs. Medications and Allergies Home Medications Medication Instructions Recorded Confirmed Type Escitalopram [Lexapro] 20 mg PO HS 03/01/17 03/03/17 History Vivitrol 380mg Powder For 380 mg PO Q28D 03/01/17 03/03/17 History Suspention Allergies Allergy/AdvReac Type Severity Reaction Status Date / Time clindamycin Allergy Unknown Rash/Hives Verified 03/01/17 14:43 acetylcysteine Allergy Anaphylaxis Verified 03/01/17 14:43 [From Mucomyst] chlordiazepoxide HCl AdvReac Hallucinati Verified 03/01/17 14:43 [From Librium] ons citalopram [From Celexa] AdvReac Hallucinati Verified 03/01/17 14:43 ons diphenhydramine HCl AdvReac Rapid Verified 03/01/17 14:43 [From Benadryl] Heart Rate Physical Exam Vitals: Vital Signs Temp Pulse Resp BP Pulse Ox 03/04/17 06:38 97.9 F 61 18 129/83 03/03/17 20:37 99 16 132/99 03/03/17 16:52 97.3 F L 86 16 120/84 97 Intake and Output 03/03/17 03/04/17 03/04/17 22:59 06:59 14:59 Other: Weight 77.593 kg Head normocephalic Neck supple Lungs clear to auscultation bilaterally no wheezing or crackles Heart regular rate and rhythm S1-S2, no rub or gallop Abdomen is soft nontender nondistended positive bowel sounds no hepatosplenomegaly Extremities no edema Neuro alert and orientated to 3. Slight tremor to both hands Results Labs: Abnormal Lab Results - Last 24 Hours (Table) 03/03/17 03/04/17 Range/Units 07:00 08:30 GGT 189 H (12-43) U/L TSH 0.089 L (0.465-4.680) mIU/L Assessment and Plan Plan: 1. Alcohol dependence with alcohol intoxication present on admission. Continue multivitamin, thiamine and folic acid. Continue CIWA per protocol. Psychiatry has added Zyprexa 2. Acute on chronic depression: Has been admitted to the psychiatric unit. 3. Hyponatremia: Sodium level had improved at discharge. Check sodium level in a.m. 4. Mildly elevated liver enzymes due to alcohol ingestion. Repeat LFTs in a.m. 5. Essential hypertension continue clonidine. Note psychiatry did increase the clonidine to 0.2 mg twice a day to help reduce alcoholic stress symptoms and possibly cravings. Blood pressure remained stable. Continue to monitor 6. Hypothyroidism: Continue with her current dose of Synthroid. Note that TSH is low at 0.089 free T4 normal at 1.35 7. Mild persistent asthma: No evidence of exacerbation. Patient requesting that her albuterol inhaler be scheduled around the clock. 8. Mild headache: Add Motrin for pain control. 9. Constipation: Add stool softener. Continue with the milk of magnesia as needed Thank you for this consultation. We'll follow along as needed. Time with Patient: Greater than 30 (Greater than 50% of the total time spent in counseling and coordination of care.I performed an examination of the patient and discussed their management with the physician Clinical Research Physician. I have reviewed the Physician Clinical Research Physician's notes and agree with the documented findings and plan of care)
--- NOTE | 2017-03-04 11:59 | PN ---
DATE OF SERVICE: 03/04/2017 The patient was depressed. She had suicide thoughts. She was drinking excessively. She has significant anxiety. She has long-term alcohol problems. INTERVAL HISTORY: Patient has been doing fairly well. She says that overall she feels calmer and has less tremors then she was having when I first saw her on the medical floor. She notes that her mood is improved. She says that her has some court process in the could require to go into long-term treatment. It is not clear what this would be beyond petition for involuntary treatment of which the patient would not be criteria. She has identified some different treatment programs that would be longer-term and may be appropriate placements for her. She slept fairly well last night. She says her mood is improved. She has not shown significant withdrawal issues. Her last CIWA score this morning was 14. She tolerates her psychotropic medications. MENTAL STATUS: Patient sat with a little restlessness. Speech was clear. She answered questions appropriately. Her thoughts were coherent and goal-directed. Her affect was a little constricted. Her mood reserved, though not clearly depressed. She did not appear to be significantly distressed. ASSESSMENT: I will continue the current diagnosis and treatment plan. We will continue psychotropic medications the same, including Lexapro 20 mg a day, Lamictal 100 mg in the morning, 200 mg at bedtime and trazodone 100 mg at bedtime, which were medications she was on prior to her hospitalization. I had started her on Zyprexa 5 mg 3 times a day, which seems to be benefiting her in terms of reducing withdrawal issues and lessening anxiety I will continue the same. 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 She does see Dr. Baez and Génesis Bateman at [facility]. We will continue to coordinate care.
[2017-03-04] MEDS: MULTIVITAMINS, THERA 1 EACH TAB PO SCH (12:59)
[2017-03-04] MEDS: FOLIC ACID 1 MG TAB PO SCH (12:59)
[2017-03-04] MEDS: THIAMINE 100 MG TAB PO SCH (13:00)
[2017-03-04] MEDS: MAGNESIUM HYDROXIDE 2,400 MG/10 ML CUP PO PRN (13:00)
[2017-03-04] MEDS: IBUPROFEN 400 MG TAB PO PRN (15:37)
[2017-03-04] MEDS ORDERED: NALTREXONE IM SCH (16:00)
[2017-03-04] MEDS: ALBUTEROL INHALER 60 PUFF/8 GM INHALER INHALATION SCH ×3 (16:50→20:31)
[2017-03-04] MEDS: FLUTICASONE 50MCG/SPRAY NASAL 16GM EA NOSTRIL SCH (19:18)
[2017-03-04] MEDS: ESCITALOPRAM 20 MG TAB PO SCH (20:47)
[2017-03-04] MEDS: traZODone HCL 100 MG TAB PO SCH (20:47)
[2017-03-04] MEDS: GABAPENTIN 100 MG CAP PO SCH (20:47)
[2017-03-04] MEDS: DOCUSATE 100 MG CAP PO SCH (20:47)
[2017-03-05] MEDS: LEVOTHYROXINE 100 MCG TAB PO SCH (06:20)
[2017-03-05] MEDS: LEVOTHYROXINE 75 MCG TAB PO SCH (06:20)
[2017-03-05] MEDS: FLUTICASONE 50MCG/SPRAY NASAL 16GM EA NOSTRIL SCH (08:08)
[2017-03-05] MEDS: lamoTRIgine 100 MG TAB PO SCH ×2 (08:09→21:33)
[2017-03-05] MEDS: DOCUSATE 100 MG CAP PO SCH ×2 (08:09→21:31)
[2017-03-05] MEDS: OLANZapine 5 MG TAB PO SCH (08:09)
[2017-03-05 09:18] LABS: ALT 75 U/L (9-52); AST 96 U/L (14-36); Alkaline Phosphatase 49 U/L (38-126); Anion Gap 10 mmol/L; Blood Urea Nitrogen 14 mg/dL (7-17); Calcium 9.5 mg/dL (8.4-10.2); Carbon Dioxide 27 mmol/L (22-30); Chloride 105 mmol/L (98-107); Glucose 151 mg/dL (74-99); Non-African American GFR(MDRD) >60 (>60 ml/min/1.73 sqM); Potassium 4.1 mmol/L (3.5-5.1); Sodium 142 mmol/L (137-145); Total Bilirubin 0.8 mg/dL (0.2-1.3); Total Protein 7.5 g/dL (6.3-8.2)
[2017-03-05] MEDS: ALBUTEROL INHALER 60 PUFF/8 GM INHALER INHALATION SCH ×4 (09:45→21:22)
--- NOTE | 2017-03-05 11:11 | P.PN ---
Progress Note - Text Interval history: The patient is found in group she follows me to an interview room. She reports that her mood is stabilizing. She states that when she is not using alcohol her Lexapro and Lamictal are effective. She is looking into longer term inpatient chemical dependency treatment programs with the assistance of her outpatient therapist. She states that she normally takes Catapres at home and is concern regarding her blood pressure and it was quite elevated this morning. We will restart the Catapres. She was started on Zyprexa 5 mg 3 times daily we discussed that this is unnecessary and would likely contributed to significant weight gain risk. She is agreeable to having me discontinue that medication. She does participate in the milieu and looks forward to a visit from her . Mental status exam: The patient is alert she seated calmly in the chair she is pleasant and cooperative. She has short dark hair and wears eyeglasses. She has a mild tremor which be related alcohol withdrawal but also could be benign essential tremor. Speech is fluent and spontaneous nonpressured. She reports her mood is improving. She reports no acute suicidal or homicidal ideation intent or plan. She is endorsing no symptoms of psychosis she does not appear hypomanic or manic. Insight and judgment improving. She demonstrates no verbal or physical aggressiveness. Thought process is linear she demonstrates no tangential thinking loose associations or flight of ideas. Plan: The patient will continue on her current medications however we will discontinue the Zyprexa. Catapres will be restarted 0.1 mg twice daily. We will continue to monitor blood pressure and for safety. She is encouraged to consider long-term placement for chemical dependency treatment.
[2017-03-05] MEDS: cloNIDine HCL 0.1 MG TAB PO SCH ×2 (12:26→21:31)
[2017-03-05] MEDS: FOLIC ACID 1 MG TAB PO SCH (12:26)
[2017-03-05] MEDS: MAGNESIUM HYDROXIDE 2,400 MG/10 ML CUP PO PRN ×2 (12:29→21:33)
[2017-03-05] MEDS: MULTIVITAMINS, THERA 1 EACH TAB PO SCH (12:30)
[2017-03-05] MEDS: THIAMINE 100 MG TAB PO SCH (12:30)
[2017-03-05 12:36] LABS: Appearance,Urine Clear (Clear); Bilirubin,Urine Negative (Negative); Glucose,Urine (UA) Negative (Negative); Ketones,Urine Negative (Negative); Leukocyte Esterase,Urine Negative (Negative); Nitrite,Urine Negative (Negative); Protein,Urine Negative (Negative); Specific Gravity,Urine 1.004 (1.001-1.035); UA Billing (MACRO vs. MICRO) CHEM; Urobilinogen,Urine <2.0 mg/dL (<2.0)
[2017-03-05] MEDS: traZODone HCL 100 MG TAB PO SCH (21:31)
[2017-03-05] MEDS: ESCITALOPRAM 20 MG TAB PO SCH (21:31)
[2017-03-05] MEDS: GABAPENTIN 100 MG CAP PO SCH (21:32)
[2017-03-06] MEDS: LEVOTHYROXINE 100 MCG TAB PO SCH (05:46)
[2017-03-06] MEDS: LEVOTHYROXINE 75 MCG TAB PO SCH (05:47)
[2017-03-06] MEDS: lamoTRIgine 100 MG TAB PO SCH ×2 (08:29→22:38)
[2017-03-06] MEDS: FLUTICASONE 50MCG/SPRAY NASAL 16GM EA NOSTRIL SCH (08:29)
[2017-03-06] MEDS: DOCUSATE 100 MG CAP PO SCH ×2 (08:29→21:04)
[2017-03-06] MEDS: cloNIDine HCL 0.1 MG TAB PO SCH ×2 (08:29→21:03)
[2017-03-06] MEDS: ALBUTEROL INHALER 60 PUFF/8 GM INHALER INHALATION SCH ×4 (08:49→21:18)
--- NOTE | 2017-03-06 11:28 | P.PN ---
Progress Note - Text Interval history: The patient is found in group she follows me to an interview room. She reports her mood is "good". She states that she does not qualify to go to [place] but is hoping to go to [facility] in [place] for longer term inpatient chemical dependency treatment related to her alcohol use disorder. She states she was able to sleep last night appetite is stable. She is trying to exercise by walking on the mental health unit. She states she had a positive visit with her last evening. We reviewed her medication she has no questions. Mental status exam: The patient is alert she seated calmly eye contact is appropriate speech is fluent and spontaneous nonpressured. She reports her mood is "good" affect is euthymic. She is reporting no suicidal or homicidal ideation intent or plan. There is no report of auditory or visual hallucinations no report of specific delusions. She does not appear hypomanic or manic. Insight and judgment improving. Cognitively she remains grossly intact. There is no verbal or physical aggressiveness. Thought process is linear she demonstrates no tangential thinking loose associations or flight of ideas. She demonstrates a very fine amplitude tremor with outstretched hands which is likely there chronically and not related to acute alcohol withdrawal. Plan: The patient will continue on her current psychotropic medication we will monitor her for safety and encourage her participation in the milieu. She appears to be stabilizing and I expect will be appropriate for discharge in the next 1 or 2 days. She has a family meeting scheduled for this afternoon.
[2017-03-06] MEDS: THIAMINE 100 MG TAB PO SCH (12:30)
[2017-03-06] MEDS: MULTIVITAMINS, THERA 1 EACH TAB PO SCH (12:30)
[2017-03-06] MEDS: MONTELUKAST 10 MG TAB PO SCH (12:30)
[2017-03-06] MEDS: FOLIC ACID 1 MG TAB PO SCH (12:30)
[2017-03-06] MEDS: traZODone HCL 100 MG TAB PO SCH (20:37)
[2017-03-06] MEDS: GABAPENTIN 100 MG CAP PO SCH (20:37)
[2017-03-06] MEDS: ESCITALOPRAM 20 MG TAB PO SCH (20:38)
[2017-03-07] MEDS: cloNIDine HCL 0.1 MG TAB PO SCH (03:14)
[2017-03-07 05:37] VITALS: TEMP 97.7
[2017-03-07] MEDS: IBUPROFEN 400 MG TAB PO PRN (05:38)
[2017-03-07] MEDS: LEVOTHYROXINE 75 MCG TAB PO SCH (05:59)
[2017-03-07] MEDS: LEVOTHYROXINE 100 MCG TAB PO SCH (06:00)
[2017-03-07] MEDS: FLUTICASONE 50MCG/SPRAY NASAL 16GM EA NOSTRIL SCH (09:08)
[2017-03-07] MEDS: DOCUSATE 100 MG CAP PO SCH (09:08)
[2017-03-07] MEDS: MONTELUKAST 10 MG TAB PO SCH (09:08)
[2017-03-07] MEDS: lamoTRIgine 100 MG TAB PO SCH (09:09)
[2017-03-07 09:12] VITALS: BP 113/65; PULSE 70; RESP 20
[2017-03-07] MEDS: ALBUTEROL INHALER 60 PUFF/8 GM INHALER INHALATION SCH ×2 (09:27→13:31)
--- NOTE | 2017-03-07 11:23 | P.DS ---
Providers Date of admission: 03/03/17 16:35 Expected date of discharge: 03/07/17 Attending physician: Richy Maynard Consults: 03/03/17 15:34 Consult Physician Routine Consulting Provider: Karan Huitron Consult Reason/Comments: follow up H & P Do you want consulting provider notified?: Yes Primary care physician: Stated None - Discharge Diagnosis(es) (1) Major depressive disorder, recurrent Current Visit: Yes Status: Acute Priority: High (2) Alcohol use disorder Current Visit: Yes Status: Acute Priority: High Hospital Course: Brief summary of admission note: The patient was admitted to the mental health unit through the emergency room for suicidal ideation. She has a known history of alcohol use disorder and had been drinking excessively. Her last hospitalization was in December 2014 of this year. She has had numerous admissions to the hospital that were alcohol-related. She has previously been managed with Lamictal and Lexapro. She does work with [facility]. For full details please refer to the psychiatric evaluation dated 03/03/2017. New Summary of hospital course: The patient was admitted to the mental health unit she signed in voluntarily. She was initially seen by . In his absence I have provided care. She has been maintained on Lexapro and Lamictal. Trazodone is being used at bedtime. She was given a Vivitrol injection. She was provided medication to prevent alcohol withdrawal symptoms. She participated in group she demonstrated no agitated behavior. She was seen by the powder monkey for routine medical consultation. She will have a hearing tomorrow as [facility] has petition the court for a treatment order related to her alcohol use disorder. The patient is willing to attend a inpatient chemical [place] treatment program on an extended basis. The patient has demonstrated no aggressive behavior. She did have a productive family meeting involving her yesterday. Mental status exam: The patient is a female appearing her stated age. She presents with adequate hygiene grooming eye contact is appropriate. She is dressed in her own clothing. She reports her mood is "good" affect is euthymic. She reports having no suicidal or homicidal ideation intent or plan. She endorses no auditory or visual hallucinations she endorses no specific delusions there is no evidence of psychosis. She does not appear hypomanic or manic. She demonstrates no verbal or physical aggressiveness. She does have a baseline benign tremor which is observed in her hands. Cognitively she remains oriented to person place and date. Thought process is linear she demonstrates no tangential thinking loose associations or flight of ideas. Impressions 1. Major depressive disorder recurrent, rule out bipolar disorder, alcohol use disorder 2. Liver enzyme elevation which appears to be improving, hypertension 3. Psychosocial dysfunction due to ongoing alcohol use symptoms Plan: The patient will be discharged mental health unit today she will return home residing with her . She will continue on Lexapro 20 mg daily, trazodone 100 mg at bedtime, Lamictal 100 mg in the morning 200 mg at bedtime. She will continue working with [facility] for outpatient psychiatric care social work will arrange that appointment. She does have a court hearing regarding her substance use. We discussed that her safety risk is elevated if she uses alcohol. She is instructed to abstain from any alcohol use. There is no imminent safety risk she is appropriate for transition back to outpatient care. She is instructed to return to the hospital with any acute safety concerns. Patient Condition at Discharge: Stable Plan - Discharge Summary New Discharge Prescriptions: Albuterol Inhaler [Ventolin Hfa Inhaler] 1 puff INHALATION RT-QID #1 puff Escitalopram [Lexapro] 20 mg PO HS #30 tab Montelukast [Singulair] 10 mg PO DAILY #30 tab cloNIDine HCL [Catapres] 0.1 mg PO BID #30 tab lamoTRIgine [LaMICtal] 100 mg PO DAILY #30 tab lamoTRIgine [LaMICtal Xr] 200 mg PO HS #30 tab traZODone HCL [Desyrel] 100 mg PO HS #30 tab Discharge Medication List Gabapentin [Neurontin] 200 mg PO HS #30 cap 09/29/16 [Rx] Folic Acid 1 mg PO DAILY@1200 #30 tab 12/27/16 [Rx] Levothyroxine Sodium [Synthroid] 175 mcg PO DAILY #30 tablet 12/27/16 [Rx] Thiamine [Vitamin B-1] 100 mg PO DAILY@1200 #30 tab 12/27/16 [Rx] Vivitrol 380mg Powder For Suspention 380 mg PO Q28D 03/01/17 [History] Multivitamins, Thera [Multivitamin (formulary)] 1 each PO DAILY@1200 tab [Rx] Albuterol Inhaler [Ventolin Hfa Inhaler] 1 puff INHALATION RT-QID #1 puff [Rx] Escitalopram [Lexapro] 20 mg PO HS #30 tab 03/07/17 [Rx] Montelukast [Singulair] 10 mg PO DAILY #30 tab 03/07/17 [Rx] cloNIDine HCL [Catapres] 0.1 mg PO BID #30 tab 03/07/17 [Rx] lamoTRIgine [LaMICtal Xr] 200 mg PO HS #30 tab 03/07/17 [Rx] lamoTRIgine [LaMICtal] 100 mg PO DAILY #30 tab 03/07/17 [Rx] traZODone HCL [Desyrel] 100 mg PO HS #30 tab 03/07/17 [Rx]
[2017-03-07] MEDS: FOLIC ACID 1 MG TAB PO SCH (13:08)
[2017-03-07] MEDS: THIAMINE 100 MG TAB PO SCH (13:08)
[2017-03-07] MEDS: MULTIVITAMINS, THERA 1 EACH TAB PO SCH (13:08)
== END 2017-03-07 16:31 | disposition home or self-care (01) | DRG 885 ==
LOC: 3MHU 16:35
PROVIDERS: ADMIT Psychiatry & Neurology Psychiatry; ATTEND Psychiatry & Neurology Psychiatry
DX: F33.2 Major depressive disorder, recurrent severe without psychotic features (principal); E87.0 Hyperosmolality and hypernatremia; R45.851 Suicidal ideations; F10.239 Alcohol dependence with withdrawal, unspecified; F10.229 Alcohol dependence with intoxication, unspecified; F41.9 Anxiety disorder, unspecified; I10 Essential (primary) hypertension; Y90.8 Blood alcohol level of 240 mg/100 ml or more; Z79.899 Other long term (current) drug therapy; Z80.3 Family history of malignant neoplasm of breast; Z81.1 Family history of alcohol abuse and dependence; Z85.850 Personal history of malignant neoplasm of thyroid; J45.30 Mild persistent asthma, uncomplicated; Z80.0 Family history of malignant neoplasm of digestive organs; E89.0 Postprocedural hypothyroidism; R51 Headache; L40.9 Psoriasis, unspecified; N60.01 Solitary cyst of right breast; D24.2 Benign neoplasm of left breast; Z88.8 Allergy status to other drugs, medicaments and biological substances; R25.1 Tremor, unspecified; K59.00 Constipation, unspecified
CPT/HCPCS: 80053; 81003; 82977; 83735; 84439; 84443; 84630; 94640

== ENCOUNTER 2017-05-29 13:05 | Inpatient (IN) | payer MEDICAID, OTHER ==
--- NOTE | 2017-05-29 13:21 | ED ---
General Adult HPI - General Source: RN notes reviewed, old records reviewed <Rakesh Ramsay - Last Filed: 05/29/17 13:20> <Dylon Patel - Last Filed: 05/30/17 01:15> - General Stated complaint: SUICIDAL Time Seen by Provider: 05/29/17 13:10 - History of Present Illness Initial comments: This is a 56-year-old female to the ER for evaluation. This patient presents for evaluation regarding psychiatric disease, history of alcohol and rubbing alcohol and drinking or spray. Patient is intoxicated. Patient has history of mental disease, states she is suicidal (Rakesh Ramsay) - Related Data Home Medications Medication Instructions Recorded Confirmed Vitamin A 8,000 unit PO DAILY 05/29/17 05/29/17 Vitamin E (Dl,Tocopheryl Acet) 400 unit PO DAILY 05/29/17 05/29/17 [Vitamin E] lamoTRIgine [LaMICtal] 100 mg PO DAILY 05/29/17 05/29/17 lamoTRIgine [LaMICtal] 200 mg PO HS 05/29/17 05/29/17 Previous Rx's Medication Instructions Recorded Levothyroxine Sodium [Synthroid] 175 mcg PO DAILY #30 tablet 12/27/16 Thiamine [Vitamin B-1] 100 mg PO DAILY@1200 #30 tab 12/27/16 Escitalopram [Lexapro] 20 mg PO HS #30 tab 03/07/17 lamoTRIgine [LaMICtal] 100 mg PO DAILY #30 tab 03/07/17 Allergies Allergy/AdvReac Type Severity Reaction Status Date / Time clindamycin Allergy Unknown Rash/Hives Verified 05/29/17 13:19 acetylcysteine Allergy Anaphylaxis Verified 05/29/17 13:19 [From Mucomyst] chlordiazepoxide HCl AdvReac Hallucinati Verified 05/29/17 13:19 [From Librium] ons citalopram [From Celexa] AdvReac Hallucinati Verified 05/29/17 13:19 ons diphenhydramine HCl AdvReac Rapid Verified 05/29/17 13:19 [From Benadryl] Heart Rate Review of Systems ROS Other: All systems not noted in ROS Statement are negative. <Rakesh Ramsay - Last Filed: 05/29/17 13:20> ROS Other: All systems not noted in ROS Statement are negative. <Dylon Patel Petty - Last Filed: 05/30/17 01:15> ROS Statement: Those systems with pertinent positive or pertinent negative responses have been documented in the HPI. Past Medical History Past Medical History: Asthma, Cancer, Hypertension, Thyroid Disorder Additional Past Medical History / Comment(s): seasonal allergies, history of thyroid cancer-thyroidectomy, psoriasis, current breast cyst in right breast, alcoholic, left breast has stable benign tumor , BROKE RT FOOT PINKY TOE. etoh abuse History of Any Multi-Drug Resistant Organisms: None Reported Additional Past Surgical History / Comment(s): Thyroidectomy 1999, SKIN NEVI REMOVED Past Anesthesia/Blood Transfusion Reactions: Previous Problems w/ Anesthesia, Postoperative Nausea & Vomiting (PONV) Additional Past Anesthesia/Blood Transfusion Reaction / Comment(s): Pt lives with in their home. They have been together 12 yrs. Pt is normally independent. Pt is an alcoholic. She is feeling more depressed lately and ashamed of her alcoholism. 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 Pt no longer has a drivers license- she has had 2 DUI's. 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 She is seen at [facility] by Dr. Baez and has a councelor-NICO. She has alot of jewish friends. drives her to her appts. Smoking Status: Never smoker - Past Family History Father Family Medical History: Cancer Additional Family Medical History / Comment(s): Father at age 64 of esophageal cancer. Father was an alcoholic and had cirrhosis of the liver. Mother Family Medical History: Cancer Additional Family Medical History / Comment(s): Mother of breast cancer at age 42yrs. <Rakesh Ramsay - Last Filed: 05/29/17 13:20> General Exam General appearance: alert, in no apparent distress Head exam: Present: atraumatic, normocephalic, normal inspection Eye exam: Present: normal appearance, PERRL, EOMI. Absent: scleral icterus, conjunctival injection, periorbital swelling ENT exam: Present: normal exam, mucous membranes moist Neck exam: Present: normal inspection. Absent: tenderness, meningismus, lymphadenopathy Respiratory exam: Present: normal lung sounds bilaterally. Absent: respiratory distress, wheezes, rales, rhonchi, stridor Cardiovascular Exam: Present: regular rate, normal rhythm, normal heart sounds. Absent: systolic murmur, diastolic murmur, rubs, gallop, clicks GI/Abdominal exam: Present: soft, normal bowel sounds. Absent: distended, tenderness, guarding, rebound, rigid Extremities exam: Present: normal inspection, full ROM, normal capillary refill. Absent: tenderness, pedal edema, joint swelling, calf tenderness Back exam: Present: normal inspection Neurological exam: Present: alert, oriented X3, CN II-XII intact Psychiatric exam: Present: normal affect, normal mood Skin exam: Present: warm, dry, intact, normal color. Absent: rash <Rakesh Ramsay - Last Filed: 05/29/17 13:20> Medical Decision Making <Rakesh Ramsay - Last Filed: 05/29/17 13:20> <Dylon Patel - Last Filed: 05/30/17 01:15> - Medical Decision Making 56 yo female, initially evaluated by the previous physician. She was medically cleared awaiting sobriety and psychiatric evaluation. Patient was evaluated by psychiatric nurse in the emergency department and will be admitted for inpatient psychiatric treatment. (Dylon Patel) - Lab Data Lab Results 05/29/17 Range/Units 15:03 Urine Opiates Screen Not Detected (NotDetected) Ur Oxycodone Screen Not Detected (NotDetected) Urine Methadone Screen Not Detected (NotDetected) Ur Propoxyphene Screen Not Detected (NotDetected) Ur Barbiturates Screen Not Detected (NotDetected) U Tricyclic Antidepress Not Detected (NotDetected) Ur Phencyclidine Scrn Not Detected (NotDetected) Ur Amphetamines Screen Not Detected (NotDetected) U Methamphetamines Scrn Not Detected (NotDetected) U Benzodiazepines Scrn Not Detected (NotDetected) Urine Cocaine Screen Not Detected (NotDetected) U Marijuana (THC) Screen Not Detected (NotDetected) Disposition <Roskopp,Rakesh B - Last Filed: 05/29/17 13:20> Decision to Admit Reason: Admit from EC Decision Date: 05/30/17 Decision Time: 01:15 <Dylon Patel - Last Filed: 05/30/17 01:15> Clinical Impression: Suicidal ideation, Alcoholism /alcohol abuse Disposition: ADMITTED IP TO THIS HOSP Referrals: Karan Huitron MD [Primary Care Provider] - 1-2 days
[2017-05-30] MEDS ORDERED: MAG HYDROX/AL HYDROX/SIMETH 30 ML CUP PO PRN (03:20)
[2017-05-30] MEDS ORDERED: MAGNESIUM HYDROXIDE 2,400 MG/10 ML CUP PO PRN (03:20)
[2017-05-30] MEDS: LORazepam 1 MG TAB PO PRN ×3 (03:32→16:46)
[2017-05-30 04:28] VITALS: BMI 28.6
[2017-05-30] MEDS: LEVOTHYROXINE 100 MCG TAB PO SCH (06:16)
[2017-05-30] MEDS: LEVOTHYROXINE 75 MCG TAB PO SCH (06:17)
[2017-05-30] MEDS: VITAMIN E (DL,TOCOPHERYL ACET) 400 UNIT CAP PO SCH (08:25)
[2017-05-30] MEDS: VITAMIN A 10,000 UNIT CAPSULE PO SCH (08:25)
[2017-05-30] MEDS: lamoTRIgine 100 MG TAB PO SCH ×2 (08:25→21:39)
[2017-05-30 09:04] LABS: Basophils % (A) 0 %; CH 30.9; CHCM 34.5; Eosinophils % (A) 0 %; HCT 43.6 % (34.0-46.0); HDW 2.36; HGB 14.9 gm/dL (11.4-16.0); Luc # (Auto) 0.05; Luc % (Auto) 1; Lymphocytes % (A) 19 %; MCH 30.7 pg (25.0-35.0); MCHC 34.2 g/dL (31.0-37.0); MCV 89.8 fL (80.0-100.0); Mean Platelet Volume 7.9; Monocytes # (A) 0.2 k/uL (0-1.0); Monocytes % (A) 5 %; Neutrophils % (A) 75 %; RBC 4.85 m/uL (3.80-5.40); RDW 13.6 % (11.5-15.5); WBC 5.3 k/uL (3.8-10.6); WBC (Perox) 5.36
[2017-05-30 09:15] LABS: ALT 32 U/L (9-52); AST 34 U/L (14-36); Alkaline Phosphatase 59 U/L (38-126); Anion Gap 13 mmol/L; Blood Urea Nitrogen 9 mg/dL (7-17); Calcium 9.4 mg/dL (8.4-10.2); Carbon Dioxide 27 mmol/L (22-30); Chloride 98 mmol/L (98-107); Glucose 134 mg/dL (74-99); Non-African American GFR(MDRD) >60 (>60 ml/min/1.73 sqM); Potassium 3.8 mmol/L (3.5-5.1); Sodium 138 mmol/L (137-145); Total Bilirubin 2.2 mg/dL (0.2-1.3); Total Protein 7.4 g/dL (6.3-8.2)
--- NOTE | 2017-05-30 10:13 | P.CONS ---
History of Present Illness - Reason for Consult Consult date: 05/30/17 Medical management Requesting physician: Mary Anne Garcia - Chief Complaint Alcohol intoxication and depression - History of Present Illness This is a 56-year-old female with a known past medical history of alcohol dependence, hypothyroidism, asthma, hypertension and chronic depression. Patient has had multiple psychiatric admissions. She's had multiple rehab at admissions for her alcohol abuse. Patient reports that she was at the [facility]. She had been doing well and then was given small dictation. And started drinking again. Therefore she was kicked out of the rehab center. And she then went home and again started drinking again. Per ER report patient presented intoxicated. Patient was seen by psychiatry and has been admitted to the psychiatric unit. We've been consulted for medical management. Patient's also reports that she has been without her thyroid medication for about a month. She reports losing the medication. TSH level is low at 0.015. Free T4 level will be checked and blood pressures of also been elevated and her current depressed and was not restarted. Confirming her Catapres dose. She had a blood pressure 170/103. She is still having some tremors in her hands and requiring the Ativan for EtOH withdrawal. Patient denies any abdominal pain. Denies any nausea or vomiting. Denies any irregularity in her bowel movements. Denies any burning with urination. Denies any fevers chills or sweats. She reports that she wants to go back to the [facility] rehabilitation program. Review of Systems Refer to HPI otherwise unremarkable Past Medical History Past Medical History: Asthma, Cancer, Hypertension, Thyroid Disorder Additional Past Medical History / Comment(s): seasonal allergies, history of thyroid cancer-thyroidectomy, psoriasis, current breast cyst in right breast, alcoholic, left breast has stable benign tumor , BROKE RT FOOT PINKY TOE. etoh abuse History of Any Multi-Drug Resistant Organisms: None Reported Additional Past Surgical History / Comment(s): Thyroidectomy 2000, SKIN NEVI REMOVED Past Anesthesia/Blood Transfusion Reactions: Previous Problems w/ Anesthesia, Postoperative Nausea & Vomiting (PONV) Additional Past Anesthesia/Blood Transfusion Reaction / Comm: Pt lives with in their home. They have been together 12 yrs. Pt is normally independent. Pt is an alcoholic. She is feeling more depressed lately and ashamed of her alcoholism. PT STATED SHE IS A BINGE DRINKER AND IS A BLACK OUT DRINKER,THINKS SHE STARTED DRINKING 4-5 DAYS AGO 3 PINTS A DAY AND WHEN COMING DOWN DRANK SUAVE HAIR SPRAY( does not allow alcohol in the home so pt has drinks hand crew director or hair spray per her ). Pt no longer has a drivers license- she has had 2 DUI's. 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 She is seen at [facility] by Dr. Baez and has a councelor-NICO. She has alot of taoist friends. drives her to her appts. Smoking Status: Never smoker - Past Family History Father Family Medical History: Cancer Additional Family Medical History / Comment(s): Father at age 64 of esophageal cancer. Father was an alcoholic and had cirrhosis of the liver. Mother Family Medical History: Cancer Additional Family Medical History / Comment(s): Mother of breast cancer at age 42yrs. Medications and Allergies Home Medications Medication Instructions Recorded Confirmed Type Vitamin A 8,000 unit PO DAILY 05/29/17 05/29/17 History Vitamin E (Dl,Tocopheryl Acet) 400 unit PO DAILY 05/29/17 05/29/17 History [Vitamin E] lamoTRIgine [LaMICtal] 100 mg PO DAILY 05/29/17 05/29/17 History lamoTRIgine [LaMICtal] 200 mg PO HS 05/29/17 05/29/17 History Allergies Allergy/AdvReac Type Severity Reaction Status Date / Time clindamycin Allergy Unknown Rash/Hives Verified 05/30/17 08:35 acetylcysteine Allergy Anaphylaxis Verified 05/30/17 08:35 [From Mucomyst] chlordiazepoxide HCl AdvReac Hallucinati Verified 05/30/17 08:35 [From Librium] ons citalopram [From Celexa] AdvReac Hallucinati Verified 05/30/17 08:35 ons diphenhydramine HCl AdvReac Rapid Verified 05/30/17 08:35 [From Benadryl] Heart Rate Physical Exam Vitals: Vital Signs Temp Pulse Pulse Pulse Resp BP BP 05/30/17 08:26 106 H 16 142/100 05/30/17 04:07 98.8 F 102 H 16 05/30/17 03:22 98 F 92 18 159/88 05/29/17 17:51 98.6 F 92 18 142/88 05/29/17 13:13 99.3 F 83 17 151/92 BP Pulse Ox 05/30/17 08:26 05/30/17 04:07 170/103 97 05/30/17 03:22 100 05/29/17 17:51 96 05/29/17 13:13 96 Intake and Output 05/29/17 05/30/17 05/30/17 22:59 06:59 14:59 Other: Weight 75.75 kg Head normocephalic. She has bruising around the left eye which is green and yellow in color [place] after a fall couple weeks ago. Patient had a head on the coffee table. No vision changes at this time Neck supple Lungs clear to auscultation bilaterally no wheezing or crackles Heart regular rate and rhythm S1-S2, no rub or gallop Abdomen is soft nontender nondistended positive bowel sounds no hepatosplenomegaly Extremities no edema Neuro alert and orientated to 3. Tremors noted in the bilateral hands Results CBC & Chem 7: 05/30/17 08:35 05/30/17 08:35 Labs: Abnormal Lab Results - Last 24 Hours (Table) 05/30/17 Range/Units 08:35 Glucose 134 H (74-99) mg/dL Total Bilirubin 2.2 H (0.2-1.3) mg/dL TSH <0.015 L (0.465-4.680) mIU/L Assessment and Plan Plan: 1. Alcohol abuse and acute on chronic depression: Patient has been admitted to the psychiatric unit. Psychiatry was restarted her Lamictal. And also has added Ativan for any anxiety or withdrawal symptoms. New thiamine 100 mg by mouth daily. Add Folic Acid and multivitamin. 2. Essential hypertension: Blood pressures elevated possibly due to some withdrawal symptoms. As well as patient has not been getting her Catapres. We' ll confirm her Catapres dosage and restart her blood pressure medication. 3. Elevated total bilirubin of 2.2 likely related to alcohol ingestion. Repeat CMP in a.m. 4. Hypothyroidism with a known history of thyroid cancer with thyroidectomy. Currently on Synthroid 175 g daily. TSH level is low at 0.015. Check free T4 level. Thank you for this consultation. We will follow along as needed Time with Patient: Greater than 30 (Greater than 50% of the total time spent in counseling and coordination of care.I performed an examination of the patient and discussed their management with the physician Tool And Gauge Inspector. I have reviewed the Physician Tool And Gauge Inspector's notes and agree with the documented findings and plan of care)
[2017-05-30] MEDS: cloNIDine HCL 0.1 MG TAB PO SCH ×2 (10:54→21:39)
[2017-05-30] MEDS ORDERED: THIAMINE 100 MG TAB PO SCH (12:00)
[2017-05-30] MEDS: THIAMINE 100 MG TAB PO SCH (12:24)
[2017-05-30] MEDS: FOLIC ACID 1 MG TAB PO SCH (12:24)
[2017-05-30] MEDS: MULTIVITAMINS, THERA 1 EACH TAB PO SCH (12:24)
[2017-05-30] MEDS: ESCITALOPRAM 20 MG TAB PO SCH (12:25)
[2017-05-30] MEDS: ACETAMINOPHEN TAB 325 MG TAB PO PRN (12:25)
--- NOTE | 2017-05-30 12:57 | P.HP ---
Psychiatric H&P - . H&P Date: 05/30/17 History & Physical: Allergies Allergy/AdvReac Type Severity Reaction Status Date / Time clindamycin Allergy Unknown Rash/Hives Verified 05/30/17 08:35 acetylcysteine Allergy Anaphylaxis Verified 05/30/17 08:35 [From Mucomyst] chlordiazepoxide HCl AdvReac Hallucinati Verified 05/30/17 08:35 [From Librium] ons citalopram [From Celexa] AdvReac Hallucinati Verified 05/30/17 08:35 ons diphenhydramine HCl AdvReac Rapid Verified 05/30/17 08:35 [From Benadryl] Heart Rate Vital Signs Temp 98.8 F 05/30/17 04:07 Pulse 92 05/30/17 10:58 Resp 16 05/30/17 10:58 BP 150/101 05/30/17 10:58 Pulse Ox 97 05/30/17 04:07 Intake & Output 05/29/17 05/30/17 05/30/17 18:59 06:59 18:59 Weight 77.111 kg 75.75 kg Laboratory Last Values WBC 5.3 k/uL (3.8-10.6) 05/30/17 08:35 RBC 4.85 m/uL (3.80-5.40) 05/30/17 08:35 Hgb 14.9 gm/dL (11.4-16.0) 05/30/17 08:35 Hct 43.6 % (34.0-46.0) 05/30/17 08:35 MCV 89.8 fL (80.0-100.0) 05/30/17 08:35 MCH 30.7 pg (25.0-35.0) 05/30/17 08:35 MCHC 34.2 g/dL (31.0-37.0) 05/30/17 08:35 RDW 13.6 % (11.5-15.5) 05/30/17 08:35 Plt Count 169 k/uL (150-450) 05/30/17 08:35 Neutrophils % 75 % 05/30/17 08:35 Lymphocytes % 19 % 05/30/17 08:35 Monocytes % 5 % 05/30/17 08:35 Eosinophils % 0 % 05/30/17 08:35 Basophils % 0 % 05/30/17 08:35 Neutrophils # 4.0 k/uL (1.3-7.7) 05/30/17 08:35 Lymphocytes # 1.0 k/uL (1.0-4.8) 05/30/17 08:35 Monocytes # 0.2 k/uL (0-1.0) 05/30/17 08:35 Eosinophils # 0.0 k/uL (0-0.7) 05/30/17 08:35 Basophils # 0.0 k/uL (0-0.2) 05/30/17 08:35 Sodium 138 mmol/L (137-145) 05/30/17 08:35 Potassium 3.8 mmol/L (3.5-5.1) 05/30/17 08:35 Chloride 98 mmol/L (98-107) 05/30/17 08:35 Carbon Dioxide 27 mmol/L (22-30) 05/30/17 08:35 Anion Gap 13 mmol/L 05/30/17 08:35 BUN 9 mg/dL (7-17) 05/30/17 08:35 Creatinine 0.59 mg/dL (0.52-1.04) 05/30/17 08:35 Est GFR (MDRD) Af Amer >60 (>60 ml/min/1.73 sqM) 05/30/17 08:35 Est GFR (MDRD) Non-Af >60 (>60 ml/min/1.73 sqM) 05/30/17 08:35 Glucose 134 mg/dL (74-99) H 05/30/17 08:35 Calcium 9.4 mg/dL (8.4-10.2) 05/30/17 08:35 Total Bilirubin 2.2 mg/dL (0.2-1.3) H 05/30/17 08:35 AST 34 U/L (14-36) 05/30/17 08:35 ALT 32 U/L (9-52) 05/30/17 08:35 Alkaline Phosphatase 59 U/L (38-126) 05/30/17 08:35 Total Protein 7.4 g/dL (6.3-8.2) 05/30/17 08:35 Albumin 4.5 g/dL (3.5-5.0) 05/30/17 08:35 TSH <0.015 mIU/L (0.465-4.680) L 05/30/17 08:35 Free T4 1.36 ng/dL (0.78-2.19) 05/30/17 08:35 Urine Opiates Screen Not Detected (NotDetected) 05/29/17 15:03 Ur Oxycodone Screen Not Detected (NotDetected) 05/29/17 15:03 Urine Methadone Screen Not Detected (NotDetected) 05/29/17 15:03 Ur Propoxyphene Screen Not Detected (NotDetected) 05/29/17 15:03 Ur Barbiturates Screen Not Detected (NotDetected) 05/29/17 15:03 U Tricyclic Antidepress Not Detected (NotDetected) 05/29/17 15:03 Ur Phencyclidine Scrn Not Detected (NotDetected) 05/29/17 15:03 Ur Amphetamines Screen Not Detected (NotDetected) 05/29/17 15:03 U Methamphetamines Scrn Not Detected (NotDetected) 05/29/17 15:03 U Benzodiazepines Scrn Not Detected (NotDetected) 05/29/17 15:03 Urine Cocaine Screen Not Detected (NotDetected) 05/29/17 15:03 U Marijuana (THC) Screen Not Detected (NotDetected) 05/29/17 15:03 05/30/17 12:2 Identification: Patient is a 56-year-old female came to the emergency room after she had a plan to commit suicide by standing on the train tracks, she reports she doesn't really want to and came to the emergency room. She reports that she has been drinking and was intoxicated when she had thoughts and plans to commit suicide. She reports that she's been drinking a half to 1 pint a day. Patient was recently admitted to the [facility] in [place] for alcohol rehabilitation and was there from March 18 until she was asked to leave on May 25 due to drinking while she was in the program. Patient states that she has been taking her psychiatric medications and is unable to report how effective they were due to her use of alcohol. History of Present Illness: [Patient states that she was last admitted here in March 2017 and states that shortly after her discharge she was admitted to [facility] in [place] but was asked to leave on May 25 due to her use of alcohol. Patient states that she has been treated since [address] [facility]. She reports that she has been recently on Lamictal, Lexapro, trazodone and Neurontin with unknown results. Patient is able to endorse episodes of depression where she stays in bed all day, has no energy or motivation and her sleep is poor. She reports that she has had suicidal thoughts in the past and initially attempted in 1991 with an overdose when she discovered her was having an affair. She reports she has tried on 3 other occasions twice with an overdose and once standing on a train track and jumping at the last minute. She states her overdoses were always associated with alcohol use but not the episode on the train track. She reports she regrets her plan and seeks help. Patient states she is embarrassed and ashamed of her attempts and states she really does not want to . She is able to endorse hypomanic symptoms in the past that include an elevated energy level, being told to slow down and not requiring much sleep. She denies any impulsive behavior, no psychotic behavior. Patient reports that she began drinking at the age of 24, she states to assist her in sleeping. Patient states that she began drinking while in the program at [facility] due to feeling bored. She states she returned home and continued to drink 1/2- 1 pint a day and does report blackouts. She states that she blacked out once at [facility] while seeing her psychiatrist and was petitioned. Patient states that when she is unable to obtain alcohol she was drinking Suave hairspray and hand crisis mental health therapist and states she did so prior to her admission. She states when she is drinking she gets impulsive thoughts of suicide, doesn't want to or act on them, begins to ruminate about it and then becomes frightened and seeks assistance. Patient states that the Lamictal has stabilized her moods and the Lexapro has been helpful for her periods of depression. She states the Neurontin has been helpful for anxiety in the past but has been off it for the last several months while at [facility], she states that she is unable to take it during the day due to sedation and takes it at night. She reports the trazodone has also been beneficial for her sleep. She reports feeling despondent, with a fear the future which she describes insecurities about her financial status. Her is retired at age 66 and works a part-time jobs. She is fearful of financial issues in the future but really is unable to elaborate on this other than concerns that if her dies she will have no source of financial support. Patient states that she is bored at home with too much free time on her hands even though she states that she does keep busy, reading, knitting, walking and swimming. Patient states that she has been drinking recently to control the shakes that she is having and this is required the use of half to 1 pint of alcohol a day. Past Psychiatric History: Patient has had multiple admissions her first she states for psychiatric reasons was in 2004 and her last was here in March 2017. She reports multiple admissions for alcohol rehab, having been at [facility] on 5 occasions and at 9 other programs. She was most recently at the [facility] in [place] from March 18 until May 25 when she was asked to leave. Patient reports that she attends AA meetings sporadically. Patient reports having been tried on Paxil in the past and did well on this for a number of years until it was changed to Lexapro. She reports at some point in the past she was also tried on Celexa which she states gave her suicidal ideation. Patient has been on Lamictal with good results, Lexapro currently with good results and trazodone and Neurontin. Past Medical/Surgical History: Patient states that she is status post thyroidectomy and iodine 131 treatment for thyroid cancer and is currently on Synthroid replacement. She is also being treated for asthma, seasonal allergies , hypertension. see allergies above. Current Psychiatric Medications: Patient states that she was most recently taking Lamictal 300 mg a day, trazodone 100 mg at bedtime, Lexapro 20 mg in the morning and Neurontin 100 mg at bedtime. Family History: Patient reports that her brother abuses alcohol, her father abused alcohol and this caused his . She states there is a history of alcohol use in her extended family on both her maternal and paternal side. She also reports a paternal uncle who is treated for depression and completed suicide at the age of 29. She reports that her mother was also treated for depression. Social History: Patient was born and raised in [place] and both of her parents are . She has a younger brother and sister with whom she has no contact for the last 10 years. 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 She stated that she last worked in the year 1999 and lost her license due to her use of alcohol. Patient was the first time for 21 years and had no children and has been currently for 4 years but has known her for the last 12. She reports that they have no children together, he has adult children from a prior marriage. Patient 's is 66 years of age and retired but does work part-time jobs. Patient is currently living with her and is not working and is supported by him. Substance Use History: Patient states she began using alcohol at the age of 24 and has had consistent use since that time with her longest period of sobriety being 14 months in 2001. She reports currently using a half to 1 pint a day and states that she has used more in the past. She denies any tobacco use and denies any current or prior drug use. 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 She has been [place] for driving with a suspended license, resisting arrest and other times related to being intoxicated. She reports no current legal issues. Mental Status: Appearance/Attitude: [Patient is neatly dressed, reports being tired, and feeling shaky. She was cooperative during the interview.] Behavior: She exhibited no psychomotor agitation or retardation. Speech/Language: Patient's speech was spontaneous, of normal volume and rhythm. Thought Process: Patient was goal-directed, coherent and did not exhibit any tangential or circumstantial thought, no flight of ideas. Thought Content: She denied any auditory or visual hallucinations and no delusions or paranoid ideation were elicited. Patient reports continuing to have some fleeting thoughts of suicide, not wanting to . She describes having little energy or motivation to do things and her sleep has been fair at home. She reports that she has been using the Ativan and denies any sweating, nausea or vomiting but does endorse feeling shaky. Suicidal/Homicidal Ideation: She reports that she continues to have suicidal thoughts but no plans and does not wish to . She denies any current homicidal ideation Sensorium/Cognition: Patient is alert and oriented to person, place, and time she reports that her memory is not as sharp as it was in the past. Mood/Affect: Patient's mood is depressed and her affect is blunted. Insight/Judgement: Insight and judgment are poor. Strength/Weaknesses: Patient has a supportive , compliant with medication / unable to remain sober Assessment: Patient presents with suicidal ideation with a plan to stand on the train tracks, feeling depressed, not sleeping well and little energy. She was recently asked to leave a rehab program due to her drinking while there. Patient has continued to drink since she left and has also begun to use hand crisis mental health therapist and hairspray as well as alcohol. Patient has been unable to maintain sobriety for more than 14 months. She is also being treated for bipolar type II disorder and reports that her moods have been relatively stable on the medication, however her use of alcohol has caused her to continue to have depressive episodes. Patient's laboratory results reveal an elevated bilirubin, a low TSH however her T4 was within normal limits and her other results were within normal limits. Admission Diagnoses: Bipolar disorder type II, current episode depressed; alcohol use disorder, severe] Plan: Patient was admitted on a voluntary basis and routine labs were ordered, group and activity therapy were also ordered, patient was placed on precautions and she was restarted on her Lamictal 100 mg in the morning and 200 mg at night to stabilize her mood, Lexapro 20 mg in the morning to target her depression, Neurontin 100 mg at bedtime to target her anxiety and trazodone 100 mg at bedtime to target her sleep. Patient reported no side effects from the medication. Patient was also begun on Ativan 1 mg by mouth 3 times a day when necessary to target her withdrawal symptoms. Patient will have a repeat CMP to reassess her bilirubin. Patient will be stabilized on her medications and discharge plans regarding whether she can return to [facility] will be clarified, as well patient will return to community mental health. Patient requires hospitalization to stabilize her mood, no further suicidal ideation. 05/30/17 12:26 05/30/17 12:52 05/30/17 12:56
[2017-05-30] MEDS: traZODone HCL 100 MG TAB PO SCH (21:38)
[2017-05-30] MEDS: GABAPENTIN 100 MG CAP PO SCH (21:38)
[2017-05-31] MEDS: LEVOTHYROXINE 100 MCG TAB PO SCH (06:15)
[2017-05-31] MEDS: LEVOTHYROXINE 75 MCG TAB PO SCH (06:15)
[2017-05-31] MEDS: lamoTRIgine 100 MG TAB PO SCH ×2 (08:48→20:40)
[2017-05-31] MEDS: cloNIDine HCL 0.1 MG TAB PO SCH ×2 (08:48→20:40)
[2017-05-31] MEDS: ESCITALOPRAM 20 MG TAB PO SCH (08:48)
[2017-05-31] MEDS: VITAMIN E (DL,TOCOPHERYL ACET) 400 UNIT CAP PO SCH (08:48)
[2017-05-31] MEDS: VITAMIN A 10,000 UNIT CAPSULE PO SCH (08:48)
[2017-05-31] MEDS: ACETAMINOPHEN TAB 325 MG TAB PO PRN (08:50)
[2017-05-31 10:23] LABS: ALT 30 U/L (9-52); AST 41 U/L (14-36); Alkaline Phosphatase 51 U/L (38-126); Anion Gap 12 mmol/L; Blood Urea Nitrogen 9 mg/dL (7-17); Calcium 10.1 mg/dL (8.4-10.2); Carbon Dioxide 29 mmol/L (22-30); Chloride 99 mmol/L (98-107); Glucose 89 mg/dL (74-99); Non-African American GFR(MDRD) >60 (>60 ml/min/1.73 sqM); Potassium 4.5 mmol/L (3.5-5.1); Sodium 140 mmol/L (137-145); Total Bilirubin 1.3 mg/dL (0.2-1.3); Total Protein 7.4 g/dL (6.3-8.2)
[2017-05-31] MEDS: FOLIC ACID 1 MG TAB PO SCH (12:24)
[2017-05-31] MEDS: THIAMINE 100 MG TAB PO SCH (12:24)
[2017-05-31] MEDS: MULTIVITAMINS, THERA 1 EACH TAB PO SCH (12:24)
--- NOTE | 2017-05-31 12:29 | P.PN ---
Progress Note - Text Interval History: Patient is a 56-year-old female who is admitted to the hospital for suicidal ideation with plans to stand on a train track, patient had also been in a rehab facility and has relapsed and restarted using alcohol. Patient was seen today and reports that she is feeling better, much less shaky and is eating better and slept well last evening. Patient denied any current suicidal ideation and stated that her mood is more stable today. She discussed the fact that she was court ordered to the [facility] rehab and has a court hearing this Tuesday and is hopeful to return to the [facility] if possible. She reports not requesting any Ativan so far today as she is feeling better. She had no other concerns or complaints at this time. Mental Status: Appearance/Attitude: Patient was appropriately dressed, appeared much less shaky than yesterday and was cooperative. Behavior: Patient did not exhibit any psychomotor agitation or retardation. She was able to sit quietly today and appeared more comfortable. Speech/Language: Her speech was spontaneous, was of normal volume and rhythm. Thought Process: Patient was goal-directed, coherent and there is no evidence of any tangential or circumstantial thought. Thought Content: Patient denied any auditory or visual hallucinations and no delusions or paranoid ideation were elicited. Patient reports that she is feeling better, denied any current suicidal ideation and states her mood is more positive today. She reports eating and sleeping much better. Suicidal/Homicidal Ideation: Denied any current suicidal or homicidal ideation. Sensorium/Cognition: Patient was alert and oriented to person, place, and time and her memory was grossly intact. Mood/Affect: Patient's mood was less depressed, patient reports feeling more stable and her affect was appropriate. Insight/Judgement: Patient's insight and judgment are fair. Assessment: Patient was feeling physically better today, reports sleeping and eating have improved and she is only having some shaking. Patient has been attending groups and activities. She discussed her concerns about a court order to go to [facility] and a hearing that his tentatively scheduled for this Tuesday. She is interested in returning to [facility] rehab and discussed her relapse. 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 Plan: Patient will continue on Lexapro 20 mg to target her depression, Neurontin 100 mg at bedtime to target her anxiety and continue on Lamictal 300 mg total a day to target her mood and Desyrel 100 mg at bedtime to target her sleep. Patient reports that she has not used any Ativan when necessary today and she does not feel that she requires it. She and I discussed her relapse at [facility] and the precipitants to her relapse. She was encouraged to continue to attend groups and activities as well as to journal her concerns and feelings to assist in maintaining sobriety by recognizing situations/feelings which predate her relapses. Patient will continue in the hospital, discharge plans to rehabilitation at [facility] are unclear at this time.
[2017-05-31] MEDS: traZODone HCL 100 MG TAB PO SCH (20:40)
[2017-05-31] MEDS: GABAPENTIN 100 MG CAP PO SCH (20:40)
[2017-06-01] MEDS: LEVOTHYROXINE 75 MCG TAB PO SCH (06:02)
[2017-06-01] MEDS: LEVOTHYROXINE 100 MCG TAB PO SCH (06:02)
[2017-06-01] MEDS: ESCITALOPRAM 20 MG TAB PO SCH (08:17)
[2017-06-01] MEDS: lamoTRIgine 100 MG TAB PO SCH ×2 (08:17→20:42)
[2017-06-01] MEDS: VITAMIN E (DL,TOCOPHERYL ACET) 400 UNIT CAP PO SCH (08:17)
[2017-06-01] MEDS: cloNIDine HCL 0.1 MG TAB PO SCH ×2 (08:17→20:42)
[2017-06-01] MEDS: VITAMIN A 10,000 UNIT CAPSULE PO SCH (08:17)
[2017-06-01] MEDS: LORazepam 1 MG TAB PO PRN (08:20)
[2017-06-01] MEDS: ACETAMINOPHEN TAB 325 MG TAB PO PRN (08:20)
--- NOTE | 2017-06-01 11:32 | P.PN ---
Progress Note - Text Interval History: Patient is a 56-year-old female who was admitted for depression with suicidal ideation and plan as well as a relapse in her use of alcohol. Patient reports today that she is sleeping much better and is able to eat. She states that she had requested an Ativan this morning for feeling jittery. She reports that her mood is stable and she is no longer having any suicidal thoughts and does not feel depressed. She states that she contacted the [facility] and they are willing to have her return there. Patient states that her will visit [facility]. Mental Status: Appearance/Attitude: Patient was neatly groomed and was cooperative during the interview. Behavior: Exhibited no psychomotor agitation or retardation and there was no evidence of any shaking and she was able to sit calmly during the interview. Speech/Language: Her speech was spontaneous and of normal volume and rhythm. Thought Process: She was goal-directed and there was no evidence of any tangential or circumstantial thought. Thought Content: Patient denied any auditory or visual hallucinations and no delusions or paranoid ideation could be elicited. Patient stated that she is feeling more stable, that she sleeping and eating better. She reported that she is working on coping strategies to prevent another relapse. Suicidal/Homicidal Ideation: She denied any current suicidal or homicidal ideation. Sensorium/Cognition: Patient was alert and oriented to person, place, and time and her memory was grossly intact. Mood/Affect: Patient reports her mood is euthymic and her affect was appropriate. Insight/Judgement: Patient's insight and judgment are fair. Assessment: Patient is reporting no further symptoms of depression and no current suicidal ideation and states she is feeling stable without any complaints of withdrawal symptoms. She has been actively working on coping strategies to prevent a relapse in the future and attempting to identify those situations that are likely to cause a relapse. She states that she has spoken with her about removing all of the hairspray and hand tv host at home and states that there is no alcohol in the house. Patient reports that she contacted the [facility] and has scheduled her readmission there on Tuesday.patient states that she had also made a plan for going home to keep herself busy and to attend her court hearing on Tuesday. Plan: Patient continues on Lexapro 20 mg a day to target her mood, Neurontin 100 mg at bedtime to target her anxiety and Lamictal 100 mg in the morning and 200 mg at night to stabilize her mood. Patient was no longer having any withdrawal symptoms and states that she is sleeping and eating well. Her mood is stable and she is eager to return to the [facility] to complete her rehabilitation. She has been working on coping strategies to assist her in remaining sober. Patient has been attending groups and participating in them. Will plan for patient's discharge tomorrow.
[2017-06-01] MEDS ORDERED: ALBUTEROL INHALER 60 PUFF/8 GM INHALER INHALATION PRN (11:47)
[2017-06-01] MEDS: THIAMINE 100 MG TAB PO SCH (11:57)
[2017-06-01] MEDS: MULTIVITAMINS, THERA 1 EACH TAB PO SCH (11:57)
[2017-06-01] MEDS: FOLIC ACID 1 MG TAB PO SCH (11:57)
[2017-06-01] MEDS: ALBUTEROL INHALER 60 PUFF/8 GM INHALER INHALATION PRN ×2 (17:51→21:14)
[2017-06-01] MEDS: GABAPENTIN 100 MG CAP PO SCH (20:42)
[2017-06-01] MEDS: traZODone HCL 100 MG TAB PO SCH (20:42)
[2017-06-02] MEDS: LEVOTHYROXINE 75 MCG TAB PO SCH (06:22)
[2017-06-02] MEDS: LEVOTHYROXINE 100 MCG TAB PO SCH (06:22)
[2017-06-02 06:42] VITALS: TEMP 98.1
[2017-06-02] MEDS: ALBUTEROL INHALER 60 PUFF/8 GM INHALER INHALATION PRN ×2 (09:15→12:39)
[2017-06-02] MEDS: FOLIC ACID 1 MG TAB PO SCH (11:52)
[2017-06-02] MEDS: VITAMIN A 10,000 UNIT CAPSULE PO SCH (11:52)
[2017-06-02] MEDS: ESCITALOPRAM 20 MG TAB PO SCH (11:52)
[2017-06-02] MEDS: VITAMIN E (DL,TOCOPHERYL ACET) 400 UNIT CAP PO SCH (11:52)
[2017-06-02] MEDS: MULTIVITAMINS, THERA 1 EACH TAB PO SCH (11:52)
[2017-06-02] MEDS: THIAMINE 100 MG TAB PO SCH (11:52)
[2017-06-02] MEDS: cloNIDine HCL 0.1 MG TAB PO SCH (11:53)
[2017-06-02] MEDS: lamoTRIgine 100 MG TAB PO SCH (11:53)
[2017-06-02] MEDS: ACETAMINOPHEN TAB 325 MG TAB PO PRN (11:54)
[2017-06-02 12:04] VITALS: BP 115/74; PULSE 72; RESP 18
--- NOTE | 2017-06-02 13:40 | P.DS ---
Providers Date of admission: 05/30/17 02:44 Expected date of discharge: 06/02/17 Attending physician: Mary Anne Garcia MD Consults: 05/30/17 03:20 Consult Physician Routine Consulting Provider: Karan Huitron Consult Reason/Comments: medical management Do you want consulting provider notified?: Yes, Notify in am Primary care physician: Karan Huitron [place] [facility] Course: Discharge Diagnoses: Bipolar type II disorder, current episode depressed; alcohol use disorder, severe Reason for Admission: Patient is a 56-year-old female who presented to the emergency room after she had a plan to kill herself by standing on the train tracks. She states she was intoxicated at this time and states that since May 25 she's been using a half to 1 pint a day of alcohol. 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 She was at [facility] for alcohol rehabilitation from March 18 until she was asked to leave on May 25. Patient states that she had been taking her psychiatric medication but that while using alcohol she has impulsive thoughts of suicide. Patient had recently been discharged from the hospital in March prior to her attending the [facility] program in [place]. She reported feeling despondent and depressed and concerns about her future and her financial status. She reported feeling bored at home and this is what precipitated her return to drinking. Patient also reports that she was having shakes and was drinking to control that and had had blackouts at home. Hospital Course: Patient was admitted and placed on precautions, group and activity therapy were also ordered and the patient had routine laboratory studies, and she was also evaluated for withdrawal symptoms using the CIWA protocol. Patient was restarted on her prior psychiatric medications Lexapro 20 mg a day, gabapentin 100 mg at bedtime, Lamictal 100 mg in the morning and 200 mg at bedtime, trazodone 100 mg at bedtime. Patient had some withdrawal symptoms her day on the unit and did not use any Ativan, stating she did not think she needed it, she reported shakes but was eating and sleeping fairly well. Patient was attending groups and was also working on coping strategies to prevent her return to drinking in the future she identified boredom as one of her main concerns. Patient reported that her mood improved she was no longer feeling despondent and was no longer voicing suicidal ideation. Patient was on a court order to attend [facility] and hearing was scheduled for June 03 at 8:30 in the morning. Patient was willing to return to the [facility] and scheduled an intake on Tuesday, June 04. Patient had no complaints of side effects from her medications reported that her mood had stabilized, she was ready to return to the [facility]. Patient was maintained on her Synthroid, Ventolin inhaler, synthroid, catapress , folic acid and was started on thiamine. Her laboratory results are below. Laboratory Last Values WBC 5.3 k/uL (3.8-10.6) 05/30/17 08:35 RBC 4.85 m/uL (3.80-5.40) 05/30/17 08:35 Hgb 14.9 gm/dL (11.4-16.0) 05/30/17 08:35 Hct 43.6 % (34.0-46.0) 05/30/17 08:35 MCV 89.8 fL (80.0-100.0) 05/30/17 08:35 MCH 30.7 pg (25.0-35.0) 05/30/17 08:35 MCHC 34.2 g/dL (31.0-37.0) 05/30/17 08:35 RDW 13.6 % (11.5-15.5) 05/30/17 08:35 Plt Count 169 k/uL (150-450) 05/30/17 08:35 Neutrophils % 75 % 05/30/17 08:35 Lymphocytes % 19 % 05/30/17 08:35 Monocytes % 5 % 05/30/17 08:35 Eosinophils % 0 % 05/30/17 08:35 Basophils % 0 % 05/30/17 08:35 Neutrophils # 4.0 k/uL (1.3-7.7) 05/30/17 08:35 Lymphocytes # 1.0 k/uL (1.0-4.8) 05/30/17 08:35 Monocytes # 0.2 k/uL (0-1.0) 05/30/17 08:35 Eosinophils # 0.0 k/uL (0-0.7) 05/30/17 08:35 Basophils # 0.0 k/uL (0-0.2) 05/30/17 08:35 Sodium 140 mmol/L (137-145) 05/31/17 09:23 Potassium 4.5 mmol/L (3.5-5.1) 05/31/17 09:23 Chloride 99 mmol/L (98-107) 05/31/17 09:23 Carbon Dioxide 29 mmol/L (22-30) 05/31/17 09:23 Anion Gap 12 mmol/L 05/31/17 09:23 BUN 9 mg/dL (7-17) 05/31/17 09:23 Creatinine 0.81 mg/dL (0.52-1.04) 05/31/17 09:23 Est GFR (MDRD) Af Amer >60 (>60 ml/min/1.73 sqM) 05/31/17 09:23 Est GFR (MDRD) Non-Af >60 (>60 ml/min/1.73 sqM) 05/31/17 09:23 Glucose 89 mg/dL (74-99) 05/31/17 09:23 Calcium 10.1 mg/dL (8.4-10.2) 05/31/17 09:23 Total Bilirubin 1.3 mg/dL (0.2-1.3) 05/31/17 09:23 AST 41 U/L (14-36) H 05/31/17 09:23 ALT 30 U/L (9-52) 05/31/17 09:23 Alkaline Phosphatase 51 U/L (38-126) 05/31/17 09:23 Total Protein 7.4 g/dL (6.3-8.2) 05/31/17 09:23 Albumin 4.4 g/dL (3.5-5.0) 05/31/17 09:23 TSH <0.015 mIU/L (0.465-4.680) L 05/30/17 08:35 Free T4 1.36 ng/dL (0.78-2.19) 05/30/17 08:35 Urine Opiates Screen Not Detected (NotDetected) 05/29/17 15:03 Ur Oxycodone Screen Not Detected (NotDetected) 05/29/17 15:03 Urine Methadone Screen Not Detected (NotDetected) 05/29/17 15:03 Ur Propoxyphene Screen Not Detected (NotDetected) 05/29/17 15:03 Ur Barbiturates Screen Not Detected (NotDetected) 05/29/17 15:03 U Tricyclic Antidepress Not Detected (NotDetected) 05/29/17 15:03 Ur Phencyclidine Scrn Not Detected (NotDetected) 05/29/17 15:03 Ur Amphetamines Screen Not Detected (NotDetected) 05/29/17 15:03 U Methamphetamines Scrn Not Detected (NotDetected) 05/29/17 15:03 U Benzodiazepines Scrn Not Detected (NotDetected) 05/29/17 15:03 Urine Cocaine Screen Not Detected (NotDetected) 05/29/17 15:03 U Marijuana (THC) Screen Not Detected (NotDetected) 05/29/17 15:03 Allergies clindamycin Allergy (Unknown, Verified 05/30/17 08:35) Rash/Hives acetylcysteine [From Mucomyst] Allergy (Verified 05/30/17 08:35) Anaphylaxis chlordiazepoxide HCl [From Librium] Adverse Reaction (Verified 05/30/17 08:35) Hallucinations citalopram [From Celexa] Adverse Reaction (Verified 05/30/17 08:35) Hallucinations diphenhydramine HCl [From Benadryl] Adverse Reaction (Verified 05/30/17 08:35) Rapid Heart Rate Discharge Mental Status:Appearance/Attitude: Patient was neatly groomed and dressed and her attitude was cooperative. Behavior: She exhibited no psychomotor agitation or retardation and reported no complaints of shakes, tremors Speech/Language: Patient's speech was of normal volume and rhythm and she was spontaneous and coherent. Thought Process: She was goal-directed and was not circumstantial or tangential. Thought Content: Patient denied any auditory or visual hallucinations, no delusions or paranoid ideation were elicited and the patient reported that she was no longer feeling despondent or fearful of the future. Patient discussed looking forward to returning to [facility], was making plans on how she would occupy her time there to avoid feeling bored. Patient was anxious about the hearing tomorrow morning but was comfortable returning home today. Suicidal/Homicidal Ideation: Patient reported no current suicidal or homicidal ideation. Sensorium/Cognition: Patient was alert and oriented to person, place, and time and her memory was grossly intact. Her intellectual functioning was average. Mood/Affect: Patient's mood was bright and she reported feeling optimistic and her affect was appropriate. Insight/Judgement: Patient's insight and judgment are fair. Risk Assessment: Patient's risk remains moderate due to her many relapses with alcohol which precipitate suicidal ideation, patient however is eager to complete the program at the [facility] and optimistic about maintaining her sobriety. Discharge Plan: Patient will be discharged home to live with her until she can reenter the [facility] alcohol rehabilitation program in [place] on June 04. Patient also has a court hearing tomorrow morning at 8:30 [address] was under court order to attend the above program. Patient will continue on her Lexapro 20 mg a day to target her depression, Lamictal 100 mg in the morning and 200 mg at bedtime to stabilize her mood, trazodone 100 mg at bedtime to assist with sleep. She reports that she is not able to take gabapentin as it is viewed as a mood altering drug at the [facility] and so she will not continue this she while she is there and was not given a prescription. Patient will also continue on her Catapres, folic acid, ventolin inhaler, restart her Singulair, continue on her Synthroid and thiamine and flonase. Patient will be given prescriptions for all of the above medications with a two-month supply. Patient has an appointment on August 08 @ 9:20 am for follow up at [facility] after she completes the [facility] rehab program. Patient was encouraged to continue with her coping strategies to avoid periods of boredom, encouraged to obtain a sponsor in and encouraged to maintain her sobriety. Patient Condition at Discharge: Stable Plan - Discharge Summary New Discharge Prescriptions: Continue Vitamin A 8,000 unit PO DAILY Vitamin E (Dl,Tocopheryl Acet) [Vitamin E] 400 unit PO DAILY Tolterodine Tartrate [Detrol LA] 4 mg PO DAILY Sennosides [Senokot] 17.2 mg PO DAILY Aspirin EC [Ecotrin Low Dose] 81 mg PO DAILY Multivitamins, Thera [Multivitamin (formulary)] 1 tab PO DAILY Fexofenadine HCl [Debbi Allergy] 180 mg PO DAILY Albuterol Inhaler [Ventolin Hfa Inhaler] 1 - 2 puff INHALATION RT-QID PRN 30 Days PRN Reason: Shortness Of Breath cloNIDine HCL [Catapres] 0.1 mg PO BID #60 Escitalopram [Lexapro] 20 mg PO HS #30 tab Fluticasone Nasal Bennett [Flonase Nasal Bennett] 2 spr EA NOSTRIL DAILY 30 Days Folic Acid 1 mg PO DAILY #30 Levothyroxine Sodium [Synthroid] 175 mcg PO DAILY #30 tablet Montelukast [Singulair] 10 mg PO DAILY #30 Thiamine [Vitamin B-1] 100 mg PO DAILY@1200 #30 tab traZODone HCL [Desyrel] 100 mg PO HS #30 Changed lamoTRIgine [LaMICtal] 100 mg PO BID #90 tab Discontinued lamoTRIgine [LaMICtal] 200 mg PO HS Vivitrol 380 mg IM Q30D Gabapentin [Neurontin] 200 mg PO HS Discharge Medication List Vitamin A 8,000 unit PO DAILY 05/29/17 [History] Vitamin E (Dl,Tocopheryl Acet) [Vitamin E] 400 unit PO DAILY 05/29/17 [History] Aspirin EC [Ecotrin Low Dose] 81 mg PO DAILY 05/31/17 [History] Fexofenadine HCl [Debbi Allergy] 180 mg PO DAILY 05/31/17 [History] Multivitamins, Thera [Multivitamin (formulary)] 1 tab PO DAILY 05/31/17 [History ] Sennosides [Senokot] 17.2 mg PO DAILY 05/31/17 [History] Tolterodine Tartrate [Detrol LA] 4 mg PO DAILY 05/31/17 [History] Albuterol Inhaler [Ventolin Hfa Inhaler] 1 - 2 puff INHALATION RT-QID PRN 30 Days 06/02/17 [Rx] Escitalopram [Lexapro] 20 mg PO HS #30 tab 06/02/17 [Rx] Fluticasone Nasal Bennett [Flonase Nasal Bennett] 2 spr EA NOSTRIL DAILY 30 Days [Rx] Folic Acid 1 mg PO DAILY #30 06/02/17 [Rx] Levothyroxine Sodium [Synthroid] 175 mcg PO DAILY #30 tablet 06/02/17 [Rx] Montelukast [Singulair] 10 mg PO DAILY #30 06/02/17 [Rx] Thiamine [Vitamin B-1] 100 mg PO DAILY@1200 #30 tab 06/02/17 [Rx] cloNIDine HCL [Catapres] 0.1 mg PO BID #60 06/02/17 [Rx] lamoTRIgine [LaMICtal] 100 mg PO BID #90 tab 06/02/17 [Rx] traZODone HCL [Desyrel] 100 mg PO HS #30 06/02/17 [Rx] Follow up Appointment(s)/Referral(s): Intake, Intake [Other] - 06/03/17 10:[address] [facility] [Outside] - 1 Week Karan Huitron MD [Primary Care Provider] - 06/08/17 9:20 am (Dr Calvo) Discharge Disposition: HOME SELF-CARE
== END 2017-06-02 15:58 | disposition home or self-care (01) | DRG 885 ==
LOC: EC 13:05 → 3MHU 05-30 02:44
PROVIDERS: ADMIT Psychiatry & Neurology Psychiatry; ATTEND Psychiatry & Neurology Psychiatry
DX: F31.81 Bipolar II disorder (principal); R17 Unspecified jaundice; R45.851 Suicidal ideations; F10.239 Alcohol dependence with withdrawal, unspecified; I10 Essential (primary) hypertension; E89.0 Postprocedural hypothyroidism; F41.9 Anxiety disorder, unspecified; J45.909 Unspecified asthma, uncomplicated; Z79.899 Other long term (current) drug therapy; Z81.1 Family history of alcohol abuse and dependence; Z85.850 Personal history of malignant neoplasm of thyroid; Z80.0 Family history of malignant neoplasm of digestive organs; Z80.3 Family history of malignant neoplasm of breast; Z81.8 Family history of other mental and behavioral disorders; Z88.1 Allergy status to other antibiotic agents; Z88.8 Allergy status to other drugs, medicaments and biological substances
CPT/HCPCS: 80053; 80306; 82075; 84439; 84443; 85025; 94640; 99285

== ENCOUNTER 2018-04-07 21:10 | Inpatient (IN) | payer OTHER ==
--- NOTE | 2018-04-07 21:24 | ED ---
Overdose HPI - General Chief Complaint: Overdose Stated Complaint: Drug Overdose Time Seen by Provider: 04/07/18 21:21 Source: police, EMS Mode of arrival: EMS Limitations: altered mental status - History of Present Illness Initial Comments: This patient is a 57-year-old woman who comes for evaluation after taking an overdose of trazodone as well as clonidine. The patient states she had been drinking and had been depressed and then ended up taking too much for her prescription medication. Patient currently denies symptoms MD Complaint: intentional overdose Onset/Timin -: hour(s) Intent: suicide attempt How Overdose Was Discovered: family/friend present at time Context: Intentional Overdose: drug/ETOH problems - Related Data Home Medications Medication Instructions Recorded Confirmed Multivitamins, Thera [Multivitamin 1 tab PO DAILY 05/31/17 04/07/18 (formulary)] Levothyroxine Sodium [Synthroid] 200 mcg PO DAILY 04/07/18 04/07/18 Topiramate 50 mg PO DIRECTED 04/07/18 04/07/18 lamoTRIgine [LaMICtal] 200 mg PO DAILY 04/07/18 04/07/18 Previous Rx's Medication Instructions Recorded Escitalopram [Lexapro] 20 mg PO HS #30 tab 06/02/17 Folic Acid 1 mg PO DAILY #30 06/02/17 Montelukast [Singulair] 10 mg PO DAILY #30 06/02/17 Thiamine [Vitamin B-1] 100 mg PO DAILY@1200 #30 tab 06/02/17 cloNIDine HCL [Catapres] 0.1 mg PO BID #60 06/02/17 traZODone HCL [Desyrel] 100 mg PO HS #30 06/02/17 Allergies Allergy/AdvReac Type Severity Reaction Status Date / Time clindamycin Allergy Unknown Rash/Hives Verified 04/07/18 21:42 acetylcysteine Allergy Anaphylaxis Verified 04/07/18 21:42 [From Mucomyst] chlordiazepoxide HCl AdvReac Hallucinati Verified 04/07/18 21:42 [From Librium] ons citalopram [From Celexa] AdvReac Hallucinati Verified 04/07/18 21:42 ons diphenhydramine HCl AdvReac Rapid Verified 04/07/18 21:42 [From Benadryl] Heart Rate Review of Systems ROS Statement: Those systems with pertinent positive or pertinent negative responses have been documented in the HPI. ROS Other: All systems not noted in ROS Statement are negative. Constitutional: Denies: fever, chills, weakness Respiratory: Denies: cough, dyspnea Cardiovascular: Denies: chest pain, palpitations, edema, syncope Gastrointestinal: Denies: abdominal pain, nausea, vomiting Genitourinary: Denies: dysuria, hematuria Musculoskeletal: Denies: back pain Skin: Denies: rash Neurological: Denies: headache, weakness, numbness Psychiatric: Reports: anxiety, suicidal thoughts. Denies: auditory hallucinations, visual hallucinations, homicidal thoughts Past Medical History Past Medical History: Asthma, Cancer, Hypertension, Thyroid Disorder Additional Past Medical History / Comment(s): seasonal allergies, history of thyroid cancer-thyroidectomy, psoriasis, current breast cyst in right breast, alcoholic, left breast has stable benign tumor , BROKE RT FOOT PINKY TOE. etoh abuse History of Any Multi-Drug Resistant Organisms: None Reported Past Surgical History: No Surgical Hx Reported Additional Past Surgical History / Comment(s): Thyroidectomy 1999, SKIN NEVI REMOVED Past Anesthesia/Blood Transfusion Reactions: Previous Problems w/ Anesthesia, Postoperative Nausea & Vomiting (PONV) Additional Past Anesthesia/Blood Transfusion Reaction / Comment(s): Pt lives with in their home. They have been together 12 yrs. Pt is normally independent. Pt is an alcoholic. She is feeling more depressed lately and ashamed of her alcoholism. 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 Pt no longer has a drivers license- she has had 2 DUI's. 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 She is seen at [facility] by Dr. Baez and has a councelor-NICO. She has alot of voodoo friends. drives her to her appts. Past Psychological History: Anxiety, Bipolar, Depression Smoking Status: Never smoker Past Alcohol Use History: Daily Past Drug Use History: Unable to Obtain - Past Family History Father Family Medical History: Cancer Additional Family Medical History / Comment(s): Father at age 64 of esophageal cancer. Father was an alcoholic and had cirrhosis of the liver. Mother Family Medical History: Cancer Additional Family Medical History / Comment(s): Mother of breast cancer at age 42yrs. General Exam Limitations: altered mental status General appearance: alert, in no apparent distress, appears intoxicated Head exam: Present: atraumatic, normocephalic Eye exam: Present: normal appearance. Absent: scleral icterus, conjunctival injection ENT exam: Present: mucous membranes dry Neck exam: Present: normal inspection Respiratory exam: Present: normal lung sounds bilaterally. Absent: respiratory distress, wheezes, rales, rhonchi, stridor Cardiovascular Exam: Present: regular rate, normal rhythm, normal heart sounds. Absent: systolic murmur, diastolic murmur, rubs, gallop GI/Abdominal exam: Present: soft. Absent: distended, tenderness, guarding, rebound, rigid Extremities exam: Present: normal inspection, normal capillary refill. Absent: pedal edema, calf tenderness Back exam: Present: normal inspection. Absent: CVA tenderness (R), CVA tenderness (L) Neurological exam: Present: alert, oriented X3, CN II-XII intact Skin exam: Present: warm, dry, intact, normal color. Absent: rash Course Vital Signs 04/07/18 04/07/18 04/07/18 21:17 21:41 22:02 Temperature 97.5 F L Pulse Rate 96 64 Respiratory 18 18 18 Rate Blood Pressure 117/67 77/44 O2 Sat by Pulse 95 96 Oximetry 04/07/18 04/07/18 04/07/18 22:25 22:58 23:17 Temperature Pulse Rate 58 L 60 84 Respiratory 18 18 18 Rate Blood Pressure 79/51 73/49 82/49 O2 Sat by Pulse 98 97 96 Oximetry 04/07/18 04/08/18 04/08/18 23:36 00:08 00:23 Temperature Pulse Rate 59 L 60 60 Respiratory 18 18 18 Rate Blood Pressure 87/50 83/52 73/43 O2 Sat by Pulse 97 98 100 Oximetry 04/08/18 04/08/18 04/08/18 00:35 00:50 01:01 Temperature 98.0 F Pulse Rate 56 L 50 L 89 Respiratory 18 18 Rate Blood Pressure 77/49 105/66 O2 Sat by Pulse 98 98 Oximetry Medical Decision Making - Medical Decision Making Patient's 57-year-old woman with history of psychiatric illness and previous suicidality. She did take an overdose of medication, including clonidine. She has been somewhat hypotensive here, given fluid boluses, and remaining hypotensive therefore pressors started. Case discussed with her physician who will admit and requests Dr. Stephen for consult. Discussed case with him as well and patient being started on Levophed for pressure support. - Lab Data Result diagrams: 04/08/18 06:31 04/08/18 06:31 Lab Results 04/07/18 04/07/18 04/07/18 Range/Units 21:26 21:26 21:26 WBC 4.6 (3.8-10.6) k/uL RBC 4.22 (3.80-5.40) m/uL Hgb 12.7 (11.4-16.0) gm/dL Hct 38.4 (34.0-46.0) % MCV 91.2 (80.0-100.0) fL MCH 30.2 (25.0-35.0) pg MCHC 33.2 (31.0-37.0) g/dL RDW 13.5 (11.5-15.5) % Plt Count 155 (150-450) k/uL Neutrophils % 61 % Lymphocytes % 26 % Monocytes % 6 % Eosinophils % 4 % Basophils % 0 % Neutrophils # 2.8 (1.3-7.7) k/uL Lymphocytes # 1.2 (1.0-4.8) k/uL Monocytes # 0.3 (0-1.0) k/uL Eosinophils # 0.2 (0-0.7) k/uL Basophils # 0.0 (0-0.2) k/uL Sodium 148 H (137-145) mmol/L Potassium 3.7 (3.5-5.1) mmol/L Chloride 113 H (98-107) mmol/L Carbon Dioxide 21 L (22-30) mmol/L Anion Gap 14 mmol/L BUN 13 (7-17) mg/dL Creatinine 0.60 (0.52-1.04) mg/dL Est GFR (CKD-EPI)AfAm >90 (>60 ml/min/1.73 sqM) Est GFR (CKD-EPI)NonAf >90 (>60 ml/min/1.73 sqM) Glucose 98 (74-99) mg/dL Plasma Lactic Acid Raj 1.7 (0.7-2.0) mmol/L Calcium 8.9 (8.4-10.2) mg/dL Total Bilirubin 0.2 (0.2-1.3) mg/dL AST 30 (14-36) U/L ALT 34 (9-52) U/L Alkaline Phosphatase 39 (38-126) U/L Total Protein 5.2 L (6.3-8.2) g/dL Albumin 3.1 L (3.5-5.0) g/dL Urine Color Urine Appearance (Clear) Urine pH (5.0-8.0) Ur Specific [place] (1.001-1.035) Urine Protein (Negative) Urine Glucose (UA) (Negative) Urine Ketones (Negative) Urine Blood (Negative) Urine Nitrite (Negative) Urine Bilirubin (Negative) Urine Urobilinogen (<2.0) mg/dL Ur Leukocyte Esterase (Negative) Urine HCG, Qual (Not Detectd) Salicylates <1.0 mg/dL Urine Opiates Screen (NotDetected) Ur Oxycodone Screen (NotDetected) Urine Methadone Screen (NotDetected) Ur Propoxyphene Screen (NotDetected) Acetaminophen <10.0 ug/mL Ur Barbiturates Screen (NotDetected) U Tricyclic Antidepress (NotDetected) Ur Phencyclidine Scrn (NotDetected) Ur Amphetamines Screen (NotDetected) U Methamphetamines Scrn (NotDetected) U Benzodiazepines Scrn (NotDetected) Urine Cocaine Screen (NotDetected) U Marijuana (THC) Screen (NotDetected) Serum Alcohol 226 mg/dL 04/07/18 04/07/18 04/07/18 Range/Units 21:48 21:48 21:48 WBC (3.8-10.6) k/uL RBC (3.80-5.40) m/uL Hgb (11.4-16.0) gm/dL Hct (34.0-46.0) % MCV (80.0-100.0) fL MCH (25.0-35.0) pg MCHC (31.0-37.0) g/dL RDW (11.5-15.5) % Plt Count (150-450) k/uL Neutrophils % % Lymphocytes % % Monocytes % % Eosinophils % % Basophils % % Neutrophils # (1.3-7.7) k/uL Lymphocytes # (1.0-4.8) k/uL Monocytes # (0-1.0) k/uL Eosinophils # (0-0.7) k/uL Basophils # (0-0.2) k/uL Sodium (137-145) mmol/L Potassium (3.5-5.1) mmol/L Chloride (98-107) mmol/L Carbon Dioxide (22-30) mmol/L Anion Gap mmol/L BUN (7-17) mg/dL Creatinine (0.52-1.04) mg/dL Est GFR (CKD-EPI)AfAm (>60 ml/min/1.73 sqM) Est GFR (CKD-EPI)NonAf (>60 ml/min/1.73 sqM) Glucose (74-99) mg/dL Plasma Lactic Acid Raj (0.7-2.0) mmol/L Calcium (8.4-10.2) mg/dL Total Bilirubin (0.2-1.3) mg/dL AST (14-36) U/L ALT (9-52) U/L Alkaline Phosphatase (38-126) U/L Total Protein (6.3-8.2) g/dL Albumin (3.5-5.0) g/dL Urine Color Light Yellow Urine Appearance Clear (Clear) Urine pH 7.0 (5.0-8.0) Ur Specific [place] 1.006 (1.001-1.035) Urine Protein Negative (Negative) Urine Glucose (UA) Negative (Negative) Urine Ketones Negative (Negative) Urine Blood Negative (Negative) Urine Nitrite Negative (Negative) Urine Bilirubin Negative (Negative) Urine Urobilinogen <2.0 (<2.0) mg/dL Ur Leukocyte Esterase Negative (Negative) Urine HCG, Qual Not Detected (Not Detectd) Salicylates mg/dL Urine Opiates Screen Not Detected (NotDetected) Ur Oxycodone Screen Not Detected (NotDetected) Urine Methadone Screen Not Detected (NotDetected) Ur Propoxyphene Screen Not Detected (NotDetected) Acetaminophen ug/mL Ur Barbiturates Screen Not Detected (NotDetected) U Tricyclic Antidepress Not Detected (NotDetected) Ur Phencyclidine Scrn Not Detected (NotDetected) Ur Amphetamines Screen Not Detected (NotDetected) U Methamphetamines Scrn Not Detected (NotDetected) U Benzodiazepines Scrn Not Detected (NotDetected) Urine Cocaine Screen Not Detected (NotDetected) U Marijuana (THC) Screen Not Detected (NotDetected) Serum Alcohol mg/dL - EKG Data -: EKG Interpreted by Me EKG shows normal: sinus rhythm, intervals (QTC is 419 seconds, prolonged. MI 150 ms, normal. QRS 82 ms, normal.) Rate: normal (Rate 79 bpm) Interpretation: [facility] Critical Care Time Critical Care Time: Yes (35 minutes) Disposition Clinical Impression: Alcoholism /alcohol abuse, Attempted suicide, Drug overdose, Hypotension Disposition: ADMITTED IP TO THIS [facility] Condition: Serious Is patient prescribed a controlled substance at d/c from ED?: No
[2018-04-07] MEDS ORDERED: SODIUM CHLORIDE 0.9% 500 ML IV STA (21:29)
[2018-04-07 21:45] LABS: Basophils % (A) 0 %; Eosinophils # (A) 0.2 k/uL (0-0.7); Eosinophils % (A) 4 %; HCT 38.4 % (34.0-46.0); HGB 12.7 gm/dL (11.4-16.0); Lymphocytes # (A) 1.2 k/uL (1.0-4.8); Lymphocytes % (A) 26 %; MCH 30.2 pg (25.0-35.0); MCHC 33.2 g/dL (31.0-37.0); MCV 91.2 fL (80.0-100.0); Mean Platelet Volume 8.6; Monocytes # (A) 0.3 k/uL (0-1.0); Monocytes % (A) 6 %; Neutrophils # (A) 2.8 k/uL (1.3-7.7); Neutrophils % (A) 61 %; Platelet Count 155 k/uL (150-450); RBC 4.22 m/uL (3.80-5.40); RDW 13.5 % (11.5-15.5); WBC 4.6 k/uL (3.8-10.6)
[2018-04-07] MEDS: MAGNESIUM SULFATE-D5W PMX 1 GM in DEXTROSE/WATER 1 100ML.BAG IVPB SCH ×2 (21:56→22:55)
[2018-04-07 22:01] LABS: ALT 34 U/L (9-52); AST 30 U/L (14-36); Acetaminophen <10.0 ug/mL; Albumin 3.1 g/dL (3.5-5.0); Alkaline Phosphatase 39 U/L (38-126); Anion Gap 14 mmol/L; Blood Urea Nitrogen 13 mg/dL (7-17); Calcium 8.9 mg/dL (8.4-10.2); Carbon Dioxide 21 mmol/L (22-30); Chloride 113 mmol/L (98-107); Glucose 98 mg/dL (74-99); Potassium 3.7 mmol/L (3.5-5.1); Salicylate <1.0 mg/dL; Sodium 148 mmol/L (137-145); Total Bilirubin 0.2 mg/dL (0.2-1.3); Total Protein 5.2 g/dL (6.3-8.2)
[2018-04-07 22:02] LABS: Alcohol 226 mg/dL
[2018-04-07 22:08] LABS: Amphetamine Screen,Urine Not Detected (NotDetected); Barbiturate Screen,Urine Not Detected (NotDetected); Benzodiazepines Screen,Urine Not Detected (NotDetected); Cocaine Screen,Urine Not Detected (NotDetected); Methadone Screen, Urine Not Detected (NotDetected); Opiate Screen,Urine Not Detected (NotDetected); Oxycodone Screen, Urine Not Detected (NotDetected); Phencyclidine Screen,Urine Not Detected (NotDetected); Tricyclic Antidepressant,Urine Not Detected (NotDetected); Urn Cannabinoid Scrn Not Detected (NotDetected)
[2018-04-07] MEDS ORDERED: SODIUM CHLORIDE 0.9% 1,000 ML IV ONE (22:49)
[2018-04-08] MEDS ORDERED: ATROPINE SULFATE 0.1 MG/ML 10ML SYRINGE IV STA (00:33)
[2018-04-08] MEDS ORDERED: NOREPINEPHRIN 4 MG-0.9% NS PMX 4 MG/250 ML ML IV ONE (00:34)
[2018-04-08] MEDS ORDERED: NALOXONE 0.4 MG/ML 1 ML VIAL IV PRN (00:39)
[2018-04-08] MEDS: SODIUM CHLORIDE 0.9% 1,000 ML IV SCH ×2 (00:51→08:59)
[2018-04-08 01:36] LABS: Glucose,Whole Blood 90 mg/dL (75-99)
[2018-04-08] MEDS ORDERED: NOREPINEPHRIN 4 MG-0.9% NS PMX 4 MG/250 ML ML IV SCH (02:45)
[2018-04-08 02:46] LABS: Basophils % (A) 1 %; Eosinophils # (A) 0.2 k/uL (0-0.7); Eosinophils % (A) 5 %; HGB 12.2 gm/dL (11.4-16.0); Lymphocytes # (A) 0.9 k/uL (1.0-4.8); Lymphocytes % (A) 25 %; MCH 29.9 pg (25.0-35.0); MCHC 32.1 g/dL (31.0-37.0); MCV 93.3 fL (80.0-100.0); Mean Platelet Volume 8.5; Monocytes # (A) 0.3 k/uL (0-1.0); Monocytes % (A) 7 %; Neutrophils # (A) 2.3 k/uL (1.3-7.7); Neutrophils % (A) 60 %; Platelet Count 128 k/uL (150-450); RBC 4.07 m/uL (3.80-5.40); RDW 13.6 % (11.5-15.5); WBC 3.8 k/uL (3.8-10.6)
[2018-04-08 03:00] LABS: Appearance,Urine Clear (Clear); Bilirubin,Urine Negative (Negative); Blood,Urine Negative (Negative); Color,Urine Light Yellow; Glucose,Urine (UA) Negative (Negative); Ketones,Urine Negative (Negative); Leukocyte Esterase,Urine Negative (Negative); Nitrite,Urine Negative (Negative); Protein,Urine Negative (Negative); Specific Gravity,Urine 1.006 (1.001-1.035); Urobilinogen,Urine <2.0 mg/dL (<2.0)
[2018-04-08 03:07] LABS: ALT 34 U/L (9-52); AST 26 U/L (14-36); Alkaline Phosphatase 37 U/L (38-126); Anion Gap 13 mmol/L; Blood Urea Nitrogen 11 mg/dL (7-17); Calcium 8.5 mg/dL (8.4-10.2); Carbon Dioxide 22 mmol/L (22-30); Chloride 114 mmol/L (98-107); Glucose 101 mg/dL (74-99); Magnesium 2.1 mg/dL (1.6-2.3); Phosphorus 4.8 mg/dL (2.5-4.5); Potassium 4.4 mmol/L (3.5-5.1); Sodium 149 mmol/L (137-145); Total Bilirubin 0.2 mg/dL (0.2-1.3); Total Protein 5.2 g/dL (6.3-8.2)
[2018-04-08 06:44] LABS: Basophils % (A) 0 %; Eosinophils # (A) 0.1 k/uL (0-0.7); Eosinophils % (A) 4 %; HCT 39.4 % (34.0-46.0); HGB 12.7 gm/dL (11.4-16.0); Lymphocytes # (A) 1.1 k/uL (1.0-4.8); Lymphocytes % (A) 31 %; MCH 30.2 pg (25.0-35.0); MCHC 32.3 g/dL (31.0-37.0); MCV 93.4 fL (80.0-100.0); Mean Platelet Volume 8.4; Monocytes # (A) 0.2 k/uL (0-1.0); Monocytes % (A) 6 %; Neutrophils # (A) 1.9 k/uL (1.3-7.7); Neutrophils % (A) 56 %; Platelet Count 116 k/uL (150-450); RBC 4.22 m/uL (3.80-5.40); RDW 13.6 % (11.5-15.5); WBC 3.4 k/uL (3.8-10.6)
[2018-04-08 07:06] LABS: ALT 31 U/L (9-52); AST 25 U/L (14-36); Albumin 3.1 g/dL (3.5-5.0); Alkaline Phosphatase 38 U/L (38-126); Anion Gap 11 mmol/L; Blood Urea Nitrogen 10 mg/dL (7-17); Calcium 8.9 mg/dL (8.4-10.2); Carbon Dioxide 22 mmol/L (22-30); Chloride 116 mmol/L (98-107); Glucose 92 mg/dL (74-99); Magnesium 1.9 mg/dL (1.6-2.3); Phosphorus 4.8 mg/dL (2.5-4.5); Potassium 4.2 mmol/L (3.5-5.1); Sodium 149 mmol/L (137-145); Total Bilirubin 0.3 mg/dL (0.2-1.3); Total Protein 5.1 g/dL (6.3-8.2)
[2018-04-08] MEDS ORDERED: Magnesium Replacement Protocol 1 EACH MISC MISCELLANE PRN (07:13)
[2018-04-08] MEDS: MAGNESIUM SULFATE-D5W PMX 1 GM in DEXTROSE/WATER 1 100ML.BAG IVPB SCH ×2 (08:58→12:04)
[2018-04-08] MEDS: HEPARIN SODIUM,PORCINE 5,000 UNIT/ML 1 ML VIAL SQ SCH ×3 (08:59→23:57)
[2018-04-08] MEDS: PANTOPRAZOLE 40 MG/10 ML VIAL IV SCH (08:59)
[2018-04-08] MEDS: PROCHLORPERAZINE 10 MG TAB PO PRN ×2 (09:01→18:38)
[2018-04-08 10:19] LABS: Amylase <30 U/L (30-110); Lipase 41 U/L (23-300)
--- NOTE | 2018-04-08 11:56 | P.CNPUL ---
History of Present Illness Consult date: 04/08/18 Chief complaint: Acute drug overdose History of present illness: 57-year-old female patient with known history of bipolar disorder, depression, previous suicidal attempts, alcoholism was undergone unsuccessful alcohol rehabilitation, comes in to the hospital after ingesting considerable number of trazodone and clonidine tablets. She was also drinking alcohol in excess and she was in acute alcohol intoxication at a time of admission. Apparently the patient went to a neighbor and she told her which she did and EMS was called to the scene and the patient was brought in to the hospital. The exact duration from the time of ingestion to the presentation is not known. Note that her urine drug screen was negative. Alcohol level was 226. Acetaminophen level was negative. Salicylate level was negative. The urine analysis was negative. The blood work showed no underlying gap metabolic acidosis. Function was stable and within normal limits. Liver functions: Normal limits. Amylase and lipase are within normal limits. White cell count was not elevated. EKG showed some mild prolongation of the QT interval up to 4 and 90 ms. The patient became hypotensive overnight and the patient had to be resuscitated IV fluids and she required also some pressors which was discontinued earlier this morning and currently the patient is hemodynamically stable and she is not requiring any pressors for blood pressure support. This was thought to be the clonidine effects. The patient is also on IV fluids and she is receiving 125 mL of normal saline and hourly basis. No other complaints otherwise for now. She is awake and alert. She is following commands. She admits that she has depression and she did this as a suicidal attempt. She is very much depressed. She is also underlying on alcohol to treat her depression. No aspiration. No chest pain. No focal neurological deficit. No seizure activity has been noted. No other significant events overnight. Review of Systems Constitutional: Denies chills, Denies fever Eyes: denies blurred vision, denies bulging eye, denies decreased vision Ears: deny: decreased hearing, ear discharge, earache, tinnitus Ears, nose, mouth and throat: Denies headache, Denies sore throat Cardiovascular: Denies chest pain, Denies shortness of breath Respiratory: Denies cough Gastrointestinal: Denies abdominal pain, Denies diarrhea, Denies nausea, Denies vomiting Genitourinary: Denies dysuria, Denies hematuria Musculoskeletal: Denies myalgias Musculoskeletal: absent: ankle pain, ankle stiffness, ankle swelling Integumentary: Denies pruritus, Denies rash Neurological: Denies numbness, Denies weakness Psychiatric: Reports depression, Reports sadness/tearfulness, Reports suicidal ideation Endocrine: Denies fatigue, Denies weight change Hematologic/Lymphatic: Reports as per HPI Allergic/Immunologic: Reports as per HPI Past Medical History Past Medical History: Asthma, Cancer, Hypertension, Thyroid Disorder Additional Past Medical History / Comment(s): History of goiter status post thyroidectomy, questionable history of thyroid cancer although this is not clear , bipolar disorder, depression, history of suicidal ideations, history of drug overdose, alcoholism, seasonal rhinitis, psoriasis, breast cysts, history of broken toes in the right foot, hypertension, History of Any Multi-Drug Resistant Organisms: None Reported Past Surgical History: No Surgical Hx Reported Additional Past Surgical History / Comment(s): Thyroidectomy 1999, SKIN NEVI REMOVED Past Anesthesia/Blood Transfusion Reactions: Previous Problems w/ Anesthesia, Postoperative Nausea & Vomiting (PONV) Additional Past Anesthesia/Blood Transfusion Reaction / Comment(s): Pt lives with in their home. They have been together 12 yrs. Pt is normally independent. Pt is an alcoholic. She is feeling more depressed lately and ashamed of her alcoholism. 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 Pt no longer has a drivers license- she has had 2 DUI's. 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 She is seen at [facility] by Dr. Baez and has a councelor-NICO. She has alot of sikhism friends. drives her to her appts. Past Psychological History: Anxiety, Bipolar, Depression Smoking Status: Never smoker Past Alcohol Use History: Daily Past Drug Use History: Unable to Obtain - Past Family History Father Family Medical History: Cancer Additional Family Medical History / Comment(s): Father at age 64 of esophageal cancer. Father was an alcoholic and had cirrhosis of the liver. Mother Family Medical History: Cancer Additional Family Medical History / Comment(s): Mother of breast cancer at age 42yrs. Medications and Allergies Home Medications Medication Instructions Recorded Confirmed Type Multivitamins, Thera [Multivitamin 1 tab PO DAILY 05/31/17 04/07/18 History (formulary)] Escitalopram [Lexapro] 20 mg PO HS #30 tab 06/02/17 04/07/18 Rx Folic Acid 1 mg PO DAILY #30 06/02/17 04/07/18 Rx Montelukast [Singulair] 10 mg PO DAILY #30 06/02/17 04/07/18 Rx Thiamine [Vitamin B-1] 100 mg PO DAILY@1200 #30 tab 06/02/17 04/07/18 Rx cloNIDine HCL [Catapres] 0.1 mg PO BID #60 06/02/17 04/07/18 Rx traZODone HCL [Desyrel] 100 mg PO HS #30 06/02/17 04/07/18 Rx Levothyroxine Sodium [Synthroid] 200 mcg PO DAILY 04/07/18 04/07/18 History Topiramate 50 mg PO DIRECTED 04/07/18 04/07/18 History lamoTRIgine [LaMICtal] 200 mg PO DAILY 04/07/18 04/07/18 History Allergies Allergy/AdvReac Type Severity Reaction Status Date / Time clindamycin Allergy Unknown Rash/Hives Verified 04/07/18 21:42 acetylcysteine Allergy Anaphylaxis Verified 04/07/18 21:42 [From Mucomyst] chlordiazepoxide HCl AdvReac Hallucinati Verified 04/07/18 21:42 [From Librium] ons citalopram [From Celexa] AdvReac Hallucinati Verified 04/07/18 21:42 ons diphenhydramine HCl AdvReac Rapid Verified 04/07/18 21:42 [From Benadryl] Heart Rate Physical Exam Vitals: Vital Signs Temp Pulse Resp BP Pulse Ox 04/08/18 11:00 48 L 20 100/56 100 04/08/18 10:00 51 L 25 H 110/64 99 04/08/18 09:00 49 L 12 114/68 99 04/08/18 08:00 98.0 F 49 L 11 L 115/67 99 04/08/18 07:00 57 L 13 109/63 96 04/08/18 06:30 64 14 112/69 100 04/08/18 06:00 61 11 L 101/58 99 04/08/18 05:30 59 L 12 94/60 99 04/08/18 05:00 52 L 11 L 100/63 100 04/08/18 04:30 50 L 11 L 94/57 99 04/08/18 04:00 97.8 F 49 L 11 L 94/60 99 04/08/18 03:30 50 L 11 L 99/62 99 04/08/18 03:00 53 L 12 96/63 99 04/08/18 02:30 52 L 11 L 99/60 98 04/08/18 02:00 54 L 11 L 110/72 99 04/08/18 01:50 58 L 10 L 100 04/08/18 01:40 97.9 F 61 21 125/78 99 04/08/18 01:01 98.0 F 89 18 105/66 98 04/08/18 00:50 50 L 04/08/18 00:35 56 L 18 77/49 98 04/08/18 00:23 60 18 73/43 100 04/08/18 00:08 60 18 83/52 98 04/07/18 23:36 59 L 18 87/50 97 04/07/18 23:17 84 18 82/49 96 04/07/18 22:58 60 18 73/49 97 04/07/18 22:25 58 L 18 79/51 98 04/07/18 22:02 64 18 77/44 96 04/07/18 21:41 18 04/07/18 21:17 97.5 F L 96 18 117/67 95 Intake and Output 04/07/18 04/08/18 04/08/18 22:59 06:59 14:59 Intake Total 627.187 590 Output Total 500 100 Balance 127.187 490 Intake: IV 625 275 Sodium Chloride 0.9% 1, 625 275 000 ml @ 125 mls/hr IV . Q8H [facility] Rx#:[id number] Intake, IV Titration 2.187 75 Amount Dextrose 5%-0.45% NaCl 1, 75 000 ml @ 75 mls/hr IV . [id number] [facility] Rx#:[id number] Norepinephrin 4 mg-0.9% 2.187 Ns Pmx 4 mg In 250 ml @ Titrate IV .Q0M [facility] Rx#: [id number] Oral 240 Output: Urine 500 100 Other: # Voids 0 Weight 79.379 kg 79.379 kg Gen. appearance, comfortable likely distress. Head exam was generally normal. There was no scleral icterus or corneal arcus. Mucous membranes were moist. Neck was supple and without jugular venous distension, thyromegaly, or carotid bruits. Carotids were easily palpable bilaterally. There was no adenopathy. Lungs were clear to auscultation and percussion, and with normal diaphragmatic excursion. No wheezes or rales were noted. Cardiac exam revealed the PMI to be normally situated and sized. The rhythm was regular and no extrasystoles were noted during several minutes of auscultation. The first and second heart sounds were normal and physiologic splitting of the second heart sound was noted. There were no murmurs, rubs, clicks, or gallops. Abdominal exam revealed normal bowel sounds. The abdomen was soft, non-tender, and without masses, organomegaly, or appreciable enlargement of the abdominal aorta. Examination of the extremities revealed easily palpable radial, femoral and pedal pulses. There was no cyanosis, clubbing or edema. Examination of the skin revealed no evidence of significant rashes, suspicious appearing nevi or other concerning lesions. Neurologically the patient awake and alert is no focal neurological deficit Psychiatrically there is positive depression signs and symptoms. Results - Laboratory Findings CBC and BMP: 04/08/18 06:31 04/08/18 06:31 Abnormal lab findings: Abnormal Labs 04/07/18 04/08/18 04/08/18 21:26 02:13 02:13 WBC Plt Count 128 L Lymphocytes # 0.9 L Sodium 148 H 149 H Chloride 113 H 114 H Carbon Dioxide 21 L Glucose 101 H Phosphorus 4.8 H Alkaline Phosphatase 37 L Total Protein 5.2 L 5.2 L Albumin 3.1 L 3.0 L Amylase 04/08/18 04/08/18 04/08/18 06:31 06:31 06:31 WBC 3.4 L Plt Count 116 L Lymphocytes # Sodium 149 H Chloride 116 H Carbon Dioxide Glucose Phosphorus 4.8 H Alkaline Phosphatase Total Protein 5.1 L Albumin 3.1 L Amylase <30 L Assessment and Plan Plan: Assessment 1 acute drug overdose with a combination of trazodone and clonidine 2 acute alcohol intoxication 3 acute hypotension secondary to clonidine overdose, recovered with fluids and pressors 4 depression with suicidal ideation 5 bipolar disorder 6 hypothyroidism 7 mild intermittent bronchial asthma Plan Continue IV fluids. Anxiety fluids D5 half-normal at the rate of 75 mL's an hour. The patient is producing adequate amount of urine output. Continue monitoring the hemodynamics. No clonidine for now. Resume and that he started Lexapro and Topamax. Hold trazodone for now. Awaiting a second evaluation regarding depression/suicide. Bedside sitter. Suicide precautions. Case was discussed with the family and the . The patient can potentially go to a medical floor at a later stage and she will need a 24 hour sitter at all times at the bedside. Outpatient medication were reviewed and appropriate medications were restarted.
[2018-04-08] MEDS: DEXTROSE 5%-0.45% NACL 1,000 ML IV SCH (12:03)
[2018-04-08] MEDS: FOLIC ACID 1 MG TAB PO SCH (12:05)
[2018-04-08] MEDS: lamoTRIgine 100 MG TAB PO SCH (12:05)
[2018-04-08] MEDS: TOPIRAMATE 25 MG TAB PO SCH (12:06)
[2018-04-08] MEDS: LEVOTHYROXINE 100 MCG TAB PO SCH (12:06)
[2018-04-08] MEDS: THIAMINE 100 MG TAB PO SCH (12:06)
--- NOTE | 2018-04-08 12:55 | P.HPIM ---
History of Present Illness H&P Date: 04/08/18 Patient is a 57-year-old female who presented to [facility] emergency room via EMS after ingesting multiple pills and drinking large amounts of alcohol. Apparently patient went to her neighbor and told her what she did and the neighbor called EMS and patient was brought into emergency room. Patient states that she took large amount of multiple pills including trazodone and clonidine. Patient was evaluated in the emergency room alcohol level was elevated at 226, toxicology screen was negative, sodium was elevated at 148 she had episodes of hypotension patient was admitted to intensive care unit she was given IV fluid boluses and was maintained on IV pressors, patient also had QT prolongation. Otherwise laboratory data were within normal limits including kidney function liver function and amylase and lipase. Patient has known history of alcoholism she underwent alcohol rehab multiple times in the past, she also has known history of depression, patient states that she took extra pills in a suicidal attempt because she was very depressed. Past Medical History Past Medical History: Asthma, Cancer, Hypertension, Thyroid Disorder Additional Past Medical History / Comment(s): History of goiter status post thyroidectomy, questionable history of thyroid cancer although this is not clear , bipolar disorder, depression, history of suicidal ideations, history of drug overdose, alcoholism, seasonal rhinitis, psoriasis, breast cysts, history of broken toes in the right foot, hypertension, History of Any Multi-Drug Resistant Organisms: None Reported Past Surgical History: No Surgical Hx Reported Additional Past Surgical History / Comment(s): Thyroidectomy 1999, SKIN NEVI REMOVED Past Anesthesia/Blood Transfusion Reactions: Previous Problems w/ Anesthesia, Postoperative Nausea & Vomiting (PONV) Additional Past Anesthesia/Blood Transfusion Reaction / Comment(s): Pt lives with in their home. They have been together 12 yrs. Pt is normally independent. Pt is an alcoholic. She is feeling more depressed lately and ashamed of her alcoholism. 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 Pt no longer has a drivers license- she has had 2 DUI's. 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 She is seen at [facility] by Dr. Baez and has a councelor-NICO. She has alot of anabaptism friends. drives her to her appts. Past Psychological History: Anxiety, Bipolar, Depression Smoking Status: Never smoker Past Alcohol Use History: Daily Past Drug Use History: Unable to Obtain - Past Family History Father Family Medical History: Cancer Additional Family Medical History / Comment(s): Father at age 64 of esophageal cancer. Father was an alcoholic and had cirrhosis of the liver. Mother Family Medical History: Cancer Additional Family Medical History / Comment(s): Mother of breast cancer at age 42yrs. Medications and Allergies Home Medications Medication Instructions Recorded Confirmed Type Multivitamins, Thera [Multivitamin 1 tab PO DAILY 05/31/17 04/07/18 History (formulary)] Escitalopram [Lexapro] 20 mg PO HS #30 tab 06/02/17 04/07/18 Rx Folic Acid 1 mg PO DAILY #30 06/02/17 04/07/18 Rx Montelukast [Singulair] 10 mg PO DAILY #30 06/02/17 04/07/18 Rx Thiamine [Vitamin B-1] 100 mg PO DAILY@1200 #30 tab 06/02/17 04/07/18 Rx cloNIDine HCL [Catapres] 0.1 mg PO BID #60 06/02/17 04/07/18 Rx traZODone HCL [Desyrel] 100 mg PO HS #30 06/02/17 04/07/18 Rx Levothyroxine Sodium [Synthroid] 200 mcg PO DAILY 04/07/18 04/07/18 History Topiramate 50 mg PO DIRECTED 04/07/18 04/07/18 History lamoTRIgine [LaMICtal] 200 mg PO DAILY 04/07/18 04/07/18 History Allergies Allergy/AdvReac Type Severity Reaction Status Date / Time clindamycin Allergy Unknown Rash/Hives Verified 04/08/18 11:52 acetylcysteine Allergy Anaphylaxis Verified 04/08/18 11:52 [From Mucomyst] chlordiazepoxide HCl AdvReac Hallucinati Verified 04/08/18 11:52 [From Librium] ons citalopram [From Celexa] AdvReac Hallucinati Verified 04/08/18 11:52 ons diphenhydramine HCl AdvReac Rapid Verified 04/08/18 11:52 [From [facility]] Heart Rate Physical Exam Vitals: Vital Signs Temp Pulse Resp BP Pulse Ox 04/08/18 11:58 20 04/08/18 11:00 48 L 20 100/56 100 04/08/18 10:00 51 L 25 H 110/64 99 04/08/18 09:00 49 L 12 114/68 99 04/08/18 08:00 98.0 F 49 L 11 L 115/67 99 04/08/18 07:00 57 L 13 109/63 96 04/08/18 06:30 64 14 112/69 100 04/08/18 06:00 61 11 L 101/58 99 04/08/18 05:30 59 L 12 94/60 99 04/08/18 05:00 52 L 11 L 100/63 100 04/08/18 04:30 50 L 11 L 94/57 99 04/08/18 04:00 97.8 F 49 L 11 L 94/60 99 04/08/18 03:30 50 L 11 L 99/62 99 04/08/18 03:00 53 L 12 96/63 99 04/08/18 02:30 52 L 11 L 99/60 98 04/08/18 02:00 54 L 11 L 110/72 99 04/08/18 01:50 58 L 10 L 100 04/08/18 01:40 97.9 F 61 21 125/78 99 04/08/18 01:01 98.0 F 89 18 105/66 98 04/08/18 00:50 50 L 04/08/18 00:35 56 L 18 77/49 98 04/08/18 00:23 60 18 73/43 100 04/08/18 00:08 60 18 83/52 98 04/07/18 23:36 59 L 18 87/50 97 04/07/18 23:17 84 18 82/49 96 04/07/18 22:58 60 18 73/49 97 04/07/18 22:25 58 L 18 79/51 98 04/07/18 22:02 64 18 77/44 96 04/07/18 21:41 18 04/07/18 21:17 97.5 F L 96 18 117/67 95 Intake and Output 04/07/18 04/08/18 04/08/18 22:59 06:59 14:59 Intake Total 627.187 590 Output Total 500 100 Balance 127.187 490 Intake: IV 625 275 Sodium Chloride 0.9% 1, 625 275 000 ml @ 125 mls/hr IV . Q8H STORMY Rx#:[id number] Intake, IV Titration 2.187 75 Amount Dextrose 5%-0.45% NaCl 1, 75 000 ml @ 75 mls/hr IV . [id number] STORMY Rx#:[id number] Norepinephrin 4 mg-0.9% 2.187 Ns Pmx 4 mg In 250 ml @ Titrate IV .Q0M STORMY Rx#: [id number] Oral 240 Output: Urine 500 100 Other: # Voids 0 0 Weight 79.379 kg 79.379 kg HEENT head normocephalic and atraumatic Neck is supple no JVD no goiter no lymphadenopathy Chest is clear to auscultation no crackles no wheezing Cardiac exam reveals regular heart sounds no gallops no murmurs Abdomen is soft nontender no organomegaly with normal bowel sounds Extremity exam reveals no edema no cyanosis or clubbing Neurological examination patient is alert and oriented answering questions appropriately there is no gross focal deficit Results CBC & Chem 7: 04/08/18 06:31 04/08/18 06:31 Labs: Abnormal Lab Results - Last 24 Hours (Table) 04/07/18 04/08/18 04/08/18 Range/Units 21:26 02:13 02:13 WBC (3.8-10.6) k/uL Plt Count 128 L (150-450) k/uL Lymphocytes # 0.9 L (1.0-4.8) k/uL Sodium 148 H 149 H (137-145) mmol/L Chloride 113 H 114 H (98-107) mmol/L Carbon Dioxide 21 L (22-30) mmol/L Glucose 101 H (74-99) mg/dL Phosphorus 4.8 H (2.5-4.5) mg/dL Alkaline Phosphatase 37 L (38-126) U/L Total Protein 5.2 L 5.2 L (6.3-8.2) g/dL Albumin 3.1 L 3.0 L (3.5-5.0) g/dL Amylase (30-110) U/L 04/08/18 04/08/18 04/08/18 Range/Units 06:31 06:31 06:31 WBC 3.4 L (3.8-10.6) k/uL Plt Count 116 L (150-450) k/uL Lymphocytes # (1.0-4.8) k/uL Sodium 149 H (137-145) mmol/L Chloride 116 H (98-107) mmol/L Carbon Dioxide (22-30) mmol/L Glucose (74-99) mg/dL Phosphorus 4.8 H (2.5-4.5) mg/dL Alkaline Phosphatase (38-126) U/L Total Protein 5.1 L (6.3-8.2) g/dL Albumin 3.1 L (3.5-5.0) g/dL Amylase <30 L (30-110) U/L Thrombosis Risk Factor Assmnt - Choose All That Apply Each Factor Represents 1 point: Age 41-60 years Other Risk Factors: No Other congenital or acquired thrombophilia - If yes, enter type in comment: No Thrombosis Risk Factor Assessment Total Risk Factor Score: 1 Thrombosis Risk Factor Assessment Level: Low Risk Assessment and Plan Plan: #1 Acute drug overdose with a combination of trazodone and clonidine, and possible other medications patient states that she has Lamictal and Lexapro at home and she is not sure if she took any of these pills #2 Acute alcohol intoxication, alcohol level 226 on presentation #3 Episode of acute hypotension secondary to clonidine overdose, recovered with fluids and pressors #4 depression with suicidal ideation, with known history of underlying depression and bipolar disorder #5 underlying history of hypothyroidism #6 underlying history of asthma #7 hyponatremia, adjust IV fluid At this time patient is admitted to intensive care unit continue with IV fluid she is not requiring IV pressors at this time Patient has a sitter and suicide precautions, once stable she will be transferred to medical floor and psychiatry consultation will be initiated Prognosis is guarded due to recurrent episodes of excessive alcohol intake
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
[2018-04-08] MEDS: ESCITALOPRAM 20 MG TAB PO SCH (21:27)
[2018-04-09 06:09] LABS: Basophils % (A) 0 %; Eosinophils # (A) 0.3 k/uL (0-0.7); Eosinophils % (A) 6 %; HGB 12.4 gm/dL (11.4-16.0); Lymphocytes % (A) 22 %; MCH 29.6 pg (25.0-35.0); MCHC 31.9 g/dL (31.0-37.0); MCV 92.6 fL (80.0-100.0); Mean Platelet Volume 9.2; Monocytes # (A) 0.2 k/uL (0-1.0); Monocytes % (A) 5 %; Neutrophils # (A) 2.9 k/uL (1.3-7.7); Neutrophils % (A) 66 %; Platelet Count 130 k/uL (150-450); RBC 4.21 m/uL (3.80-5.40); RDW 13.6 % (11.5-15.5); WBC 4.4 k/uL (3.8-10.6)
[2018-04-09 06:24] LABS: Anion Gap 8 mmol/L; Blood Urea Nitrogen 7 mg/dL (7-17); Calcium 9.4 mg/dL (8.4-10.2); Carbon Dioxide 22 mmol/L (22-30); Chloride 113 mmol/L (98-107); Glucose 118 mg/dL (74-99); Magnesium 1.8 mg/dL (1.6-2.3); Phosphorus 3.2 mg/dL (2.5-4.5); Potassium 4.1 mmol/L (3.5-5.1); Sodium 143 mmol/L (137-145)
[2018-04-09] MEDS: DEXTROSE 5%-0.45% NACL 1,000 ML IV SCH ×3 (06:24→22:43)
[2018-04-09] MEDS: LEVOTHYROXINE 100 MCG TAB PO SCH (06:24)
[2018-04-09] MEDS: TOPIRAMATE 25 MG TAB PO SCH (09:24)
[2018-04-09] MEDS: HEPARIN SODIUM,PORCINE 5,000 UNIT/ML 1 ML VIAL SQ SCH ×3 (09:24→22:43)
[2018-04-09] MEDS: lamoTRIgine 100 MG TAB PO SCH (09:25)
[2018-04-09] MEDS: PANTOPRAZOLE 40 MG/10 ML VIAL IV SCH (09:25)
--- NOTE | 2018-04-09 10:52 | P.PN ---
Subjective Progress Note Date: 04/09/18 Patient is a 57-year-old female who presented to [facility] emergency room via EMS after ingesting multiple pills and drinking large amounts of alcohol. Apparently patient went to her neighbor and told her what she did and the neighbor called EMS and patient was brought into emergency room. Patient states that she took large amount of multiple pills including trazodone and clonidine. Patient was evaluated in the emergency room alcohol level was elevated at 226, toxicology screen was negative, sodium was elevated at 148 she had episodes of hypotension patient was admitted to intensive care unit she was given IV fluid boluses and was maintained on IV pressors, patient also had QT prolongation. Otherwise laboratory data were within normal limits including kidney function liver function and amylase and lipase. Patient has known history of alcoholism she underwent alcohol rehab multiple times in the past, she also has known history of depression, patient states that she took extra pills in a suicidal attempt because she was very depressed. On 04/09/2018 patient is alert and oriented answering questions appropriately, complaining of headache, complaining of nausea, otherwise she denies any complaints, there is no fever or chills no dizziness no chest pain no shortness of breath no cough no vomiting no abdominal pain no diarrhea and no urinary symptoms. Objective - Vital Signs Vital signs: Vital Signs Temp 96.8 F L 04/09/18 07:38 Pulse 55 L 04/09/18 07:38 Resp 18 04/09/18 07:38 BP 109/52 04/09/18 07:38 Pulse Ox 97 04/09/18 09:11 Intake & Output 04/08/18 04/09/18 04/09/18 18:59 06:59 18:59 Intake Total 1355 600 Output Total 1900 Balance -545 600 Weight 79.379 kg 79.379 kg Intake: IV 275 Sodium Chloride 0.9% 1, 275 000 ml @ 125 mls/hr IV . Q8H STORMY Rx#:[id number] Intake, IV Titration 600 600 Amount Dextrose 5%-0.45% NaCl 1, 600 600 000 ml @ 75 mls/hr IV . [id number] STORMY Rx#:[id number] Oral 480 Output: Urine 1900 Other: Voiding Method Toilet # Voids 0 1 - Exam HEENT head normocephalic and atraumatic Neck is supple no JVD no goiter no lymphadenopathy Chest is clear to auscultation no crackles no wheezing Cardiac exam reveals regular heart sounds no gallops no murmurs Abdomen is soft nontender no organomegaly with normal bowel sounds Extremity exam reveals no edema no cyanosis or clubbing Neurological examination patient is alert and oriented answering questions appropriately there is no gross focal deficit - Labs CBC & Chem 7: 04/09/18 05:56 04/09/18 05:56 Labs: Abnormal Lab Results - Last 24 Hours (Table) 04/09/18 04/09/18 Range/Units 05:56 05:56 Plt Count 130 L (150-450) k/uL Chloride 113 H (98-107) mmol/L Glucose 118 H (74-99) mg/dL Assessment and Plan Plan: #1 Acute drug overdose with a combination of trazodone and clonidine, and possible other medications patient states that she has Lamictal and Lexapro at home and she is not sure if she took any of these pills #2 Acute alcohol intoxication, alcohol level 226 on presentation #3 Episode of acute hypotension secondary to clonidine overdose, recovered with fluids and pressors #4 depression with suicidal ideation, with known history of underlying depression and bipolar disorder #5 underlying history of hypothyroidism #6 underlying history of asthma #7 hyponatremia, adjust IV fluid At this time patient is transferred to telemetry floor Patient has a sitter and suicide precautions, once stable she will be transferred to medical floor and psychiatry consultation will be initiated Prognosis is guarded due to recurrent episodes of excessive alcohol intake
--- NOTE | 2018-04-09 11:15 | P.PN ---
Subjective Progress Note Date: 04/09/18 On today's evaluation of 04/09/2018, the patient is awake and alert and following commands and answering questions appropriately. The hypotension has resolved as the patient recovered from the clonidine overdose. He has a 24 hour sitter at the bedside. The patient is producing adequate amount of urine output. No altered mentation. No signs of the duodenum tremors. No agitation. No tremors. No reported nausea vomiting or abdominal pain. No swelling in lower extremities. No other complaints otherwise. Psych evaluation is in progress. Objective - Vital Signs Vital signs: Vital Signs Temp 96.8 F L 04/09/18 07:38 Pulse 55 L 04/09/18 07:38 Resp 18 04/09/18 07:38 BP 109/52 04/09/18 07:38 Pulse Ox 97 04/09/18 09:11 Intake & Output 04/08/18 04/09/18 04/09/18 18:59 06:59 18:59 Intake Total 1355 600 Output Total 1900 Balance -545 600 Weight 79.379 kg 79.379 kg Intake: IV 275 Sodium Chloride 0.9% 1, 275 000 ml @ 125 mls/hr IV . Q8H STORMY Rx#:[id number] Intake, IV Titration 600 600 Amount Dextrose 5%-0.45% NaCl 1, 600 600 000 ml @ 75 mls/hr IV . [id number] STORMY Rx#:[id number] Oral 480 Output: Urine 1900 Other: Voiding Method Toilet # Voids 0 1 - Exam Gen. appearance, comfortable likely distress. Head exam was generally normal. There was no scleral icterus or corneal arcus. Mucous membranes were moist. Neck was supple and without jugular venous distension, thyromegaly, or carotid bruits. Carotids were easily palpable bilaterally. There was no adenopathy. Lungs were clear to auscultation and percussion, and with normal diaphragmatic excursion. No wheezes or rales were noted. Cardiac exam revealed the PMI to be normally situated and sized. The rhythm was regular and no extrasystoles were noted during several minutes of auscultation. The first and second heart sounds were normal and physiologic splitting of the second heart sound was noted. There were no murmurs, rubs, clicks, or gallops. Abdominal exam revealed normal bowel sounds. The abdomen was soft, non-tender, and without masses, organomegaly, or appreciable enlargement of the abdominal aorta. Examination of the extremities revealed easily palpable radial, femoral and pedal pulses. There was no cyanosis, clubbing or edema. Examination of the skin revealed no evidence of significant rashes, suspicious appearing nevi or other concerning lesions. Neurologically the patient awake and alert is no focal neurological deficit Psychiatrically there is positive depression signs and symptoms. - Labs CBC & Chem 7: 04/09/18 05:56 04/09/18 05:56 Labs: Abnormal Lab Results - Last 24 Hours (Table) 04/09/18 04/09/18 Range/Units 05:56 05:56 Plt Count 130 L (150-450) k/uL Chloride 113 H (98-107) mmol/L Glucose 118 H (74-99) mg/dL Assessment and Plan Plan: Assessment 1 acute drug overdose with a combination of trazodone and clonidine, recovered. The patient has normalized her blood pressure. No altered mentation. Hemodynamically stable. 2 acute alcohol intoxication, recovered 3 acute hypotension secondary to clonidine overdose, recovered with fluids and pressors 4 depression with suicidal ideation 5 bipolar disorder 6 hypothyroidism 7 mild intermittent bronchial asthma Plan No active pulmonary critically care patient on this patient. I'm going to sign off the case. As mentioned the patient has alcoholism and history of major depression with an overdose attempt. Psychiatry saw the patient. No signs of any delirium tremens. No other active issues for now. We'll leave the rest of the management up to medicine and psychiatry and will sign off the case.
[2018-04-09] MEDS: FOLIC ACID 1 MG TAB PO SCH (12:02)
[2018-04-09] MEDS: THIAMINE 100 MG TAB PO SCH (12:02)
[2018-04-09] MEDS: PROCHLORPERAZINE 10 MG TAB PO PRN ×2 (12:21→20:35)
--- NOTE | 2018-04-09 17:19 | CONS ---
CONSULTATION DATE OF SERVICE: 04/09/2018. PURPOSE FOR CONSULTATION: Evaluate for overdose and issues of alcohol dependence. INTERVAL HISTORY: The patient has been doing fair. She sleeps quite a bit. She slept well last night and has been napping on and off in the day. I met with the patient and her to discuss discharge planning issues. The patient anticipates that she could be readmitted to [facility] in about 1 month. She does not have any clear concrete plans prior to that. She does have a hearing at drug court on April 19. She anticipates that she likely will get a 10 day custodial sentence at that time. She accepts the notion that at least if she is in custodial, she will not be drinking. She and her could not identify any plans that the two of them could put in affect to keep her from drinking from the time of her discharge from this facility to the time that she enters [facility]. She says that at [facility] there are very stringent rules and efforts to prevent any use of alcohol or drugs. She was clear that she did not use any abusive substances during the 9 months that she was in the program. She is willing to go to [facility] as an interim so that she would be in a facility where she was not able to drink. Her was very clear that if she was to return home, it would be impossible to stop her from drinking. The patient does acknowledge that she likely had some indications of inheritance towards alcoholism given that there is a family pattern of alcohol issues and that she had early use and early tolerance to alcohol. She also suggested that there were significant traumatic issues in her childhood, mainly around perfectionism that her mother demanded and likely neglectful parenting. She acknowledges that these may be significant issues that have impacted her in her adult life. We did discuss the option of Antabuse, which she said she would be willing to go on as part of transition leaving [facility] and returning to home, which presumably would be a long-term plan. When I saw the patient, she gave fairly good eye contact. She was a little slowed in movements. She answered questions directly. Her thoughts were clear. Her affect was blunted. Mood reserved. She did have 1 episode of tearfulness, talking about blaming herself for her relapse. She did seem to show a little distress at that point in time. ASSESSMENT: I will continue the current diagnosis and general treatment plan. I am recommending that Social Work make efforts to have the patient admitted to [facility] or other similar facility as soon as possible. The best option would be for the patient to go right from the hospital to an inpatient substance use program. If there would be a few days in between it would be appropriate to admit the patient to the psychiatric unit, though it is not likely that we could provide much therapeutic benefit for her to stay longer than through the end of the week. I recommended to the patient and that she get neuropsychological testing to rule out early dementia, particularly if she is going to going to [facility] it would be critical to have a very good cognitive evaluation to look at areas of limitations she may have that would impact her treatment. LISA / JACK: [id number] /
[2018-04-09] MEDS: ESCITALOPRAM 20 MG TAB PO SCH (20:35)
[2018-04-10 06:16] LABS: Basophils % (A) 1 %; Eosinophils # (A) 0.3 k/uL (0-0.7); Eosinophils % (A) 7 %; HCT 40.4 % (34.0-46.0); HGB 13.6 gm/dL (11.4-16.0); Lymphocytes # (A) 1.2 k/uL (1.0-4.8); Lymphocytes % (A) 27 %; MCH 31.1 pg (25.0-35.0); MCHC 33.6 g/dL (31.0-37.0); MCV 92.7 fL (80.0-100.0); Mean Platelet Volume 8.6; Monocytes # (A) 0.3 k/uL (0-1.0); Monocytes % (A) 7 %; Neutrophils # (A) 2.5 k/uL (1.3-7.7); Neutrophils % (A) 56 %; Platelet Count 131 k/uL (150-450); RBC 4.36 m/uL (3.80-5.40); WBC 4.5 k/uL (3.8-10.6)
[2018-04-10 06:30] LABS: ALT 32 U/L (9-52); AST 18 U/L (14-36); Albumin 3.1 g/dL (3.5-5.0); Alkaline Phosphatase 41 U/L (38-126); Anion Gap 10 mmol/L; Blood Urea Nitrogen 4 mg/dL (7-17); Calcium 9.5 mg/dL (8.4-10.2); Carbon Dioxide 22 mmol/L (22-30); Chloride 115 mmol/L (98-107); Glucose 104 mg/dL (74-99); Magnesium 1.6 mg/dL (1.6-2.3); Potassium 4.1 mmol/L (3.5-5.1); Sodium 147 mmol/L (137-145); Total Bilirubin 0.5 mg/dL (0.2-1.3); Total Protein 5.4 g/dL (6.3-8.2)
[2018-04-10] MEDS: LEVOTHYROXINE 100 MCG TAB PO SCH (06:48)
[2018-04-10] MEDS: DEXTROSE 5%-0.45% NACL 1,000 ML IV SCH (06:48)
[2018-04-10] MEDS: lamoTRIgine 100 MG TAB PO SCH (07:57)
[2018-04-10] MEDS: HEPARIN SODIUM,PORCINE 5,000 UNIT/ML 1 ML VIAL SQ SCH ×2 (07:57→16:20)
[2018-04-10] MEDS: TOPIRAMATE 25 MG TAB PO SCH (07:58)
[2018-04-10] MEDS: FOLIC ACID 1 MG TAB PO SCH (07:58)
[2018-04-10] MEDS: PANTOPRAZOLE 40 MG/10 ML VIAL IV SCH (07:58)
[2018-04-10] MEDS: THIAMINE 100 MG TAB PO SCH (07:59)
[2018-04-10] MEDS: ACETAMINOPHEN TAB 500 MG TAB PO PRN (10:22)
[2018-04-10] MEDS ORDERED: LORazepam 2 MG/ML INJ IV PRN ×2 (10:31)
--- NOTE | 2018-04-10 10:33 | P.PN ---
Subjective Progress Note Date: 04/10/18 Patient is a 57-year-old female who presented to [facility] emergency room via EMS after ingesting multiple pills and drinking large amounts of alcohol. Apparently patient went to her neighbor and told her what she did and the neighbor called EMS and patient was brought into emergency room. Patient states that she took large amount of multiple pills including trazodone and clonidine. Patient was evaluated in the emergency room alcohol level was elevated at 226, toxicology screen was negative, sodium was elevated at 148 she had episodes of hypotension patient was admitted to intensive care unit she was given IV fluid boluses and was maintained on IV pressors, patient also had QT prolongation. Otherwise laboratory data were within normal limits including kidney function liver function and amylase and lipase. Patient has known history of alcoholism she underwent alcohol rehab multiple times in the past, she also has known history of depression, patient states that she took extra pills in a suicidal attempt because she was very depressed. On 04/09/2018 patient is alert and oriented answering questions appropriately, complaining of headache, complaining of nausea, otherwise she denies any complaints, there is no fever or chills no dizziness no chest pain no shortness of breath no cough no vomiting no abdominal pain no diarrhea and no urinary symptoms. 04/10/2018 patient is awake and alert. Denies abdominal pain. Nausea is improving. Denies any vomiting. Having bowel movements. Denies any difficulty urinating. She did have some bradycardia heart rate around 46 while sleeping. She's been seen by psychiatry. Appreciate their input. Neurology will be consulted for evaluation of possible early onset dementia. Awaiting social work input in regards to patient possibly going to [facility] Objective - Vital Signs Vital signs: Vital Signs Temp 97.9 F 04/10/18 08:00 Pulse 53 L 04/10/18 08:00 Resp 16 04/10/18 08:00 BP 126/85 04/10/18 08:00 Pulse Ox 97 04/10/18 08:00 Intake & Output 04/09/18 04/10/18 04/10/18 18:59 06:59 18:59 Intake Total 1545 900 Output Total 1100 Balance 1545 -1100 900 Weight 75.6 kg Intake: Intake, IV Titration 825 900 Amount Dextrose 5%-0.45% NaCl 1, 825 900 000 ml @ 75 mls/hr IV . [id number] STORMY Rx#:[id number] Oral 720 Output: Urine 1100 Other: Voiding Method Toilet # Voids 1 1 - Exam Head normocephalic Neck supple Lungs clear to auscultation bilaterally no wheezing or crackles Heart regular rate and rhythm S1-S2, no rub or gallop Abdomen is soft nontender nondistended positive bowel sounds no hepatosplenomegaly Extremities no edema Neuro alert and orientated to 3 - Labs CBC & Chem 7: 04/10/18 05:53 04/10/18 05:53 Labs: Abnormal Lab Results - Last 24 Hours (Table) 04/10/18 04/10/18 Range/Units 05:53 05:53 Plt Count 131 L (150-450) k/uL Sodium 147 H (137-145) mmol/L Chloride 115 H (98-107) mmol/L BUN 4 L (7-17) mg/dL Glucose 104 H (74-99) mg/dL Total Protein 5.4 L (6.3-8.2) g/dL Albumin 3.1 L (3.5-5.0) g/dL Assessment and Plan Assessment: #1 Acute drug overdose with a combination of trazodone and clonidine: Trazodone cardiac currently on hold. Patient seen by psychiatry. They're recommending inpatient [facility] and that possibly patient will be placed on 3 W. until she can get into [facility]. #2 Acute alcohol intoxication, alcohol level 226 on presentation. Continue thiamine, full acid and thiamine. Add CIWA protocol #3 Episode of acute hypotension secondary to clonidine overdose, recovered with fluids and pressors. BP improving with fluids #4 depression with suicidal ideation, with known history of underlying depression and bipolar disorder #5 underlying history of hypothyroidism: Continue Synthroid. Check TSH #6 underlying history of asthma #7 hypernatremia: Continue D5 half normal saline at 75 mL an hour. Sodium is 147 #8 possible early onset dementia: Consult neurology for evaluation DVT prophylaxis subcu heparin and GI prophylaxis Protonix I performed an examination of the patient and discussed their management with the physician Extruder Operator. I have reviewed the Physician Extruder Operator's notes and agree with the documented findings and plan of care
[2018-04-10 12:28] LABS: T4, Free (Free Thyroxine) 1.64 ng/dL (0.78-2.19)
[2018-04-10] MEDS: MULTIVITAMINS, THERA 1 EACH TAB PO SCH (16:20)
[2018-04-10] MEDS: FLUTICASONE 50MCG/SPRAY NASAL 16GM EA NOSTRIL SCH (17:56)
[2018-04-10] MEDS: ESCITALOPRAM 20 MG TAB PO SCH (19:55)
[2018-04-10] MEDS: ALBUTEROL NEBULIZED 2.5 MG/3 ML INHALATION PRN (21:54)
[2018-04-11] MEDS: HEPARIN SODIUM,PORCINE 5,000 UNIT/ML 1 ML VIAL SQ SCH ×4 (00:03→23:00)
[2018-04-11] MEDS: DEXTROSE 5%-0.45% NACL 1,000 ML IV SCH (06:31)
[2018-04-11] MEDS: LEVOTHYROXINE 100 MCG TAB PO SCH (06:31)
[2018-04-11 08:49] LABS: Basophils % (A) 0 %; Eosinophils # (A) 0.3 k/uL (0-0.7); Eosinophils % (A) 4 %; HCT 44.6 % (34.0-46.0); HGB 14.6 gm/dL (11.4-16.0); Lymphocytes # (A) 1.2 k/uL (1.0-4.8); Lymphocytes % (A) 19 %; MCH 30.3 pg (25.0-35.0); MCHC 32.8 g/dL (31.0-37.0); MCV 92.1 fL (80.0-100.0); Mean Platelet Volume 8.1; Monocytes # (A) 0.4 k/uL (0-1.0); Monocytes % (A) 6 %; Neutrophils # (A) 4.4 k/uL (1.3-7.7); Neutrophils % (A) 68 %; Platelet Count 143 k/uL (150-450); RBC 4.84 m/uL (3.80-5.40); RDW 14.1 % (11.5-15.5); WBC 6.4 k/uL (3.8-10.6)
[2018-04-11 09:06] LABS: Anion Gap 12 mmol/L; Blood Urea Nitrogen 8 mg/dL (7-17); Calcium 9.4 mg/dL (8.4-10.2); Carbon Dioxide 24 mmol/L (22-30); Chloride 107 mmol/L (98-107); Glucose 94 mg/dL (74-99); Magnesium 1.6 mg/dL (1.6-2.3); Phosphorus 3.9 mg/dL (2.5-4.5); Potassium 3.9 mmol/L (3.5-5.1); Sodium 143 mmol/L (137-145)
[2018-04-11] MEDS: FLUTICASONE 50MCG/SPRAY NASAL 16GM EA NOSTRIL SCH (09:15)
[2018-04-11] MEDS: lamoTRIgine 100 MG TAB PO SCH (09:16)
[2018-04-11] MEDS: TOPIRAMATE 25 MG TAB PO SCH (09:16)
[2018-04-11] MEDS: PANTOPRAZOLE 40 MG/10 ML VIAL IV SCH ×2 (09:17→09:24)
[2018-04-11] MEDS: ACETAMINOPHEN TAB 500 MG TAB PO PRN (09:37)
[2018-04-11] MEDS: ALBUTEROL NEBULIZED 2.5 MG/3 ML INHALATION PRN ×2 (10:05→17:51)
[2018-04-11] MEDS: PANTOPRAZOLE 40 MG TABLET PO SCH (10:28)
[2018-04-11] MEDS: LORazepam 2 MG/ML INJ IV PRN ×3 (10:42→18:08)
--- NOTE | 2018-04-11 12:45 | P.PN ---
Subjective Progress Note Date: 04/11/18 Patient is a 57-year-old female who presented to [facility] emergency room via EMS after ingesting multiple pills and drinking large amounts of alcohol. Apparently patient went to her neighbor and told her what she did and the neighbor called EMS and patient was brought into emergency room. Patient states that she took large amount of multiple pills including trazodone and clonidine. Patient was evaluated in the emergency room alcohol level was elevated at 226, toxicology screen was negative, sodium was elevated at 148 she had episodes of hypotension patient was admitted to intensive care unit she was given IV fluid boluses and was maintained on IV pressors, patient also had QT prolongation. Otherwise laboratory data were within normal limits including kidney function liver function and amylase and lipase. Patient has known history of alcoholism she underwent alcohol rehab multiple times in the past, she also has known history of depression, patient states that she took extra pills in a suicidal attempt because she was very depressed. On 04/09/2018 patient is alert and oriented answering questions appropriately, complaining of headache, complaining of nausea, otherwise she denies any complaints, there is no fever or chills no dizziness no chest pain no shortness of breath no cough no vomiting no abdominal pain no diarrhea and no urinary symptoms. 04/10/2018 patient is awake and alert. Denies abdominal pain. Nausea is improving. Denies any vomiting. Having bowel movements. Denies any difficulty urinating. She did have some bradycardia heart rate around 46 while sleeping. She's been seen by psychiatry. Appreciate their input. Neurology will be consulted for evaluation of possible early onset dementia. Awaiting social work input in regards to patient possibly going to [place] 04/11/2018 patient reports feeling better today. She did have one episode of diarrhea. She is still having some tremors and requiring the IV Ativan. We are awaiting possible placement at [place]. Patient also to be evaluated again by psychiatry this afternoon. Patient denies any chest pain or shortness of breath. Denies any nausea or vomiting. Denies any burning with urination. Has been up and ambulating the hallway. 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 [id number] ST[facility] Rx#:[id number] Oral 600 Output: Urine 600 Other: Voiding Method Toilet Toilet Toilet # Voids 1 2 2 - Exam Head normocephalic Neck supple Lungs clear to auscultation bilaterally no wheezing or crackles Heart regular rate and rhythm S1-S2, no rub or gallop Abdomen is soft nontender nondistended positive bowel sounds no hepatosplenomegaly Extremities no edema Neuro alert and orientated to 3. Tremors noted in her hands and arms - Labs CBC & Chem 7: 04/11/18 07:54 04/11/18 07:54 Labs: Abnormal Lab Results - Last 24 Hours (Table) 04/11/18 Range/Units 07:54 Plt Count 143 L (150-450) k/uL Assessment and Plan Assessment: #1 Acute drug overdose with a combination of trazodone and clonidine: Trazodone and clonidine currently on hold. Patient patient is followed by psychiatry and social work. Case discussed with social worker aide. Awaiting possible placement at [place]. #2 Acute alcohol intoxication, alcohol level 226 on presentation. Continue thiamine, full acid and thiamine. Add CIWA protocol #3 Episode of acute hypotension secondary to clonidine overdose, recovered with fluids and pressors. BP improving with fluids #4 depression with suicidal ideation, with known history of underlying depression and bipolar disorder #5 underlying history of hypothyroidism: Continue Synthroid. TSH suppressed at 0.015 and free T4 is 1.64. Patient is on Synthroid 200 g daily. Patient is adamant that the dose should not be adjusted. Recommend that she follows up with her booth cleaner in the outpatient setting. #6 underlying history of asthma #7 hypernatremia: Resolved Hep-Lock IV #8 possible early onset dementia: Consult neurology for evaluation #9 essential hypertension: Patient's clonidine discontinued due to the overdose. At this time we'll place her on lisinopril 10 mg daily to help control her blood pressure DVT prophylaxis subcu heparin and GI prophylaxis Protonix I performed an examination of the patient and discussed their management with the physician Tube Winder Hand. I have reviewed the Physician Tube Winder Hand's notes and agree with the documented findings and plan of care
--- NOTE | 2018-04-11 12:50 | P.CN ---
Psychiatric Consult - . Consult date: 04/11/18 Consult:: 04/11/18 12:44 Patient was seen for a follow-up psych consult regarding her need for a sitter. Patient was admitted following her overdose on pills while intoxicated. She feels better now, and does not have any suicide thoughts and insists that she will not do anything to kill herself. She told me that [facility] will not pay for her stay in mental health or in medical floor until she goes to the rehab, and she is planning on having a safety plan along with her while she is waiting to be placed in rehab. She said she has been in rehab several times in the past. This is a white ambulatory female with good hygiene. She has well cut and groomed hair. She does not show any psychomotor agitation or retardation. Her speech is spontaneous relevant and goal-directed. Her mood is euthymic to cheerful and affect is appropriate. She denies hallucinations, delusional thinking, suicidal and homicidal thoughts. She has a good safety plan to stay sober when she gets home. She is well oriented with good memory concentration general knowledge etc. Her insight and judgment have improved. Assessment: Patient does not appear to be in any risk for suicide at this point. Suggestion: Patient's sitter can be discontinued and be transferred to rehab or discharged when medically clear until she has a bed available in the rehab.
[2018-04-11] MEDS: MULTIVITAMINS, THERA 1 EACH TAB PO SCH (12:59)
[2018-04-11] MEDS: THIAMINE 100 MG TAB PO SCH (12:59)
[2018-04-11] MEDS: FOLIC ACID 1 MG TAB PO SCH (12:59)
[2018-04-11] MEDS: LISINOPRIL 10 MG TAB PO SCH (13:02)
[2018-04-11] MEDS ORDERED: IBUPROFEN 400 MG TAB PO PRN (14:08)
[2018-04-11 14:45] VITALS: RESP 18
[2018-04-11] MEDS: ESCITALOPRAM 20 MG TAB PO SCH (20:24)
[2018-04-11] MEDS: TRIAMCINOLONE 0.1% CREAM 80 GM TUBE TOPICAL PRN (22:12)
[2018-04-12] MEDS: LEVOTHYROXINE 100 MCG TAB PO SCH (06:26)
[2018-04-12 07:10] VITALS: BP 135/87; TEMP 97.5
[2018-04-12] MEDS: FLUTICASONE 50MCG/SPRAY NASAL 16GM EA NOSTRIL SCH (08:08)
[2018-04-12] MEDS: HEPARIN SODIUM,PORCINE 5,000 UNIT/ML 1 ML VIAL SQ SCH (08:08)
[2018-04-12] MEDS: PANTOPRAZOLE 40 MG TABLET PO SCH (08:09)
[2018-04-12] MEDS: LISINOPRIL 10 MG TAB PO SCH (08:09)
[2018-04-12] MEDS: lamoTRIgine 100 MG TAB PO SCH (08:09)
[2018-04-12] MEDS: TRIAMCINOLONE 0.1% CREAM 80 GM TUBE TOPICAL PRN (08:11)
[2018-04-12] MEDS: LORazepam 2 MG/ML INJ IV PRN ×2 (08:18→12:07)
[2018-04-12] MEDS: ALBUTEROL NEBULIZED 2.5 MG/3 ML INHALATION PRN ×2 (08:21→13:33)
[2018-04-12] MEDS ORDERED: TOPIRAMATE 25 MG TAB PO SCH (09:00)
[2018-04-12 10:52] LABS: Basophils % (A) 0 %; Eosinophils # (A) 0.3 k/uL (0-0.7); Eosinophils % (A) 5 %; HCT 43.2 % (34.0-46.0); HGB 14.2 gm/dL (11.4-16.0); Lymphocytes # (A) 1.2 k/uL (1.0-4.8); Lymphocytes % (A) 21 %; MCH 29.7 pg (25.0-35.0); MCHC 32.8 g/dL (31.0-37.0); MCV 90.5 fL (80.0-100.0); Mean Platelet Volume 8.1; Monocytes # (A) 0.3 k/uL (0-1.0); Monocytes % (A) 6 %; Neutrophils # (A) 3.6 k/uL (1.3-7.7); Neutrophils % (A) 65 %; Platelet Count 147 k/uL (150-450); RBC 4.78 m/uL (3.80-5.40); RDW 14.4 % (11.5-15.5); WBC 5.5 k/uL (3.8-10.6)
[2018-04-12 11:15] LABS: Anion Gap 11 mmol/L; Blood Urea Nitrogen 9 mg/dL (7-17); Calcium 10.2 mg/dL (8.4-10.2); Carbon Dioxide 25 mmol/L (22-30); Chloride 109 mmol/L (98-107); Glucose 104 mg/dL (74-99); Magnesium 1.8 mg/dL (1.6-2.3); Phosphorus 3.4 mg/dL (2.5-4.5); Potassium 4.8 mmol/L (3.5-5.1); Sodium 145 mmol/L (137-145)
[2018-04-12] MEDS: FOLIC ACID 1 MG TAB PO SCH (12:07)
[2018-04-12] MEDS: MULTIVITAMINS, THERA 1 EACH TAB PO SCH (12:07)
[2018-04-12] MEDS: THIAMINE 100 MG TAB PO SCH (12:07)
[2018-04-12 13:41] VITALS: PULSE 75
--- NOTE | 2018-04-12 18:29 | P.DS ---
Providers Date of admission: 04/08/18 00:39 Expected date of discharge: 04/12/18 Attending physician: Karan Huitron Consults: 04/08/18 00:39 Consult Physician Routine Consulting Provider: Adry Randhawa Consult Reason/Comments: Overdose Do you want consulting provider notified?: Yes Consult Physician Stat Consulting Provider: Chidi Stephen Consult Reason/Comments: Overdose. Hypotension Do you want consulting provider notified?: Already Contacted 04/10/18 15:35 Consult Physician Routine Consulting Provider: Uzma Carpio Consult Reason/Comments: early onset dementia Do you want consulting provider notified?: Yes Primary care physician: Karanrenzo Huitron [place] Hospital Course: Diagnoses on Discharge: #1 Acute drug overdose with a combination of trazodone and clonidine: Trazodone and clonidine currently on hold. Patient patient is followed by psychiatry and social work. Case discussed with social work manager. Awaiting possible placement at [place]. #2 Acute alcohol intoxication, alcohol level 226 on presentation. Continue thiamine, full acid and thiamine. Add CIWA protocol #3 Episode of acute hypotension secondary to clonidine overdose, recovered with fluids and pressors. BP improving with fluids #4 depression with suicidal ideation, with known history of underlying depression and bipolar disorder #5 underlying history of hypothyroidism: Continue Synthroid. TSH suppressed at 0.015 and free T4 is 1.64. Patient is on Synthroid 200 g daily. Patient is adamant that the dose should not be adjusted. Recommend that she follows up with her contract programmer in the outpatient setting. #6 underlying history of asthma #7 hypernatremia: Resolved Hep-Lock IV #8 possible early onset dementia: Consult neurology for evaluation #9 essential hypertension: Patient's clonidine discontinued due to the overdose. At this time we'll place her on lisinopril 10 mg daily to help control her blood pressure Hospital course: Patient is a 57-year-old female who presented to [facility] emergency room via EMS after ingesting multiple pills and drinking large amounts of alcohol. Apparently patient went to her neighbor and told her what she did and the neighbor called EMS and patient was brought into emergency room. Patient states that she took large amount of multiple pills including trazodone and clonidine. Patient was evaluated in the emergency room alcohol level was elevated at 226, toxicology screen was negative, sodium was elevated at 148 she had episodes of hypotension patient was admitted to intensive care unit she was given IV fluid boluses and was maintained on IV pressors, patient also had QT prolongation. Otherwise laboratory data were within normal limits including kidney function liver function and amylase and lipase. Patient has known history of alcoholism she underwent alcohol rehab multiple times in the past, she also has known history of depression, patient states that she took extra pills in a suicidal attempt because she was very depressed. On 04/09/2018 patient is alert and oriented answering questions appropriately, complaining of headache, complaining of nausea, otherwise she denies any complaints, there is no fever or chills no dizziness no chest pain no shortness of breath no cough no vomiting no abdominal pain no diarrhea and no urinary symptoms. 04/10/2018 patient is awake and alert. Denies abdominal pain. Nausea is improving. Denies any vomiting. Having bowel movements. Denies any difficulty urinating. She did have some bradycardia heart rate around 46 while sleeping. She's been seen by psychiatry. Appreciate their input. Neurology will be consulted for evaluation of possible early onset dementia. Awaiting social work input in regards to patient possibly going to [place] 04/11/2018 patient reports feeling better today. She did have one episode of diarrhea. She is still having some tremors and requiring the IV Ativan. We are awaiting possible placement at [place]. Patient also to be evaluated again by psychiatry this afternoon. Patient denies any chest pain or shortness of breath. Denies any nausea or vomiting. Denies any burning with urination. Has been up and ambulating the hallway. Has traffic safety administrator On 04/12/2018 patient is alert and oriented 3 in no apparent distress she denies any symptoms at this time there is no fever or chills no headache or dizziness no chest pain no palpitation no shortness of breath no cough no nausea or vomiting no abdominal pain no diarrhea or constipation and no urinary symptoms. Patient was evaluated by psychiatry again today and was cleared for discharge. Patient Condition at Discharge: Fair Plan - Discharge Summary Discharge Rx Participant: No New Discharge Prescriptions: New Lisinopril [Zestril] 10 mg PO DAILY tab Topiramate [Topamax] 50 mg PO BID tab Continue Multivitamins, Thera [Multivitamin (formulary)] 1 tab PO DAILY Escitalopram [Lexapro] 20 mg PO HS #30 tab Folic Acid 1 mg PO DAILY #30 Montelukast [Singulair] 10 mg PO DAILY #30 Thiamine [Vitamin B-1] 100 mg PO DAILY@1200 #30 tab Levothyroxine Sodium [Synthroid] 200 mcg PO DAILY lamoTRIgine [LaMICtal] 200 mg PO DAILY Fluticasone Nasal Spencer [Flonase Nasal Spencer] 2 spr EA NOSTRIL DAILY Albuterol Inhaler [Ventolin Hfa Inhaler] 1 - 2 puff INHALATION RT-Q6H PRN PRN Reason: Shortness Of Breath Discontinued cloNIDine HCL [Catapres] 0.1 mg PO BID #60 traZODone HCL [Desyrel] 100 mg PO HS #30 Topiramate 50 mg PO DIRECTED Discharge Medication List Multivitamins, Thera [Multivitamin (formulary)] 1 tab PO DAILY 05/31/17 [History ] Escitalopram [Lexapro] 20 mg PO HS #30 tab 06/02/17 [Rx] Folic Acid 1 mg PO DAILY #30 06/02/17 [Rx] Montelukast [Singulair] 10 mg PO DAILY #30 06/02/17 [Rx] Thiamine [Vitamin B-1] 100 mg PO DAILY@1200 #30 tab 06/02/17 [Rx] Levothyroxine Sodium [Synthroid] 200 mcg PO DAILY 04/07/18 [History] lamoTRIgine [LaMICtal] 200 mg PO DAILY 04/07/18 [History] Albuterol Inhaler [Ventolin Hfa Inhaler] 1 - 2 puff INHALATION RT-Q6H PRN [History] Fluticasone Nasal Spencer [Flonase Nasal Spencer] 2 spr EA NOSTRIL DAILY 04/10/18 [ History] Lisinopril [Zestril] 10 mg PO DAILY tab 04/12/18 [Rx] Topiramate [Topamax] 50 mg PO BID tab 04/12/18 [Rx] Follow up Appointment(s)/Referral(s): [facility] [Outside] - 04/16/18 9:45 am (Intake appointment Must bring full supply of medications in original, labeled bottles. Must be refills on bottles. ) Karan Huitron MD [Primary Care Provider] - 04/20/18 2:15 pm Patient Instructions/Handouts: Abuse of Alcohol (DC) Discharge Disposition: HOME SELF-CARE
== END 2018-04-12 14:53 | disposition home or self-care (01) | DRG 918 ==
LOC: EC 21:10 → 6ICU 04-08 00:39 → 6SEL 04-08 18:33 → 4MS4W 04-10 11:45
PROVIDERS: ADMIT Internal Medicine; ATTEND Internal Medicine
DX: T43.212A Poisoning by selective serotonin and norepinephrine reuptake inhibitors, intentional self-harm, initial encounter (principal); E87.0 Hyperosmolality and hypernatremia; T46.5X2A Poisoning by other antihypertensive drugs, intentional self-harm, initial encounter; E89.0 Postprocedural hypothyroidism; F03.90 Unspecified dementia, unspecified severity, without behavioral disturbance, psychotic disturbance, mood disturbance, and anxiety; F10.229 Alcohol dependence with intoxication, unspecified; F31.9 Bipolar disorder, unspecified; F41.9 Anxiety disorder, unspecified; I10 Essential (primary) hypertension; I45.81 Long QT syndrome; J45.909 Unspecified asthma, uncomplicated; Y90.8 Blood alcohol level of 240 mg/100 ml or more; Z79.899 Other long term (current) drug therapy; Z80.0 Family history of malignant neoplasm of digestive organs; Z80.3 Family history of malignant neoplasm of breast; Z81.1 Family history of alcohol abuse and dependence; Z85.850 Personal history of malignant neoplasm of thyroid; Z86.59 Personal history of other mental and behavioral disorders; Z79.890 Hormone replacement therapy; Z88.1 Allergy status to other antibiotic agents; Z88.8 Allergy status to other drugs, medicaments and biological substances; R40.2142 Coma scale, eyes open, spontaneous, at arrival to emergency department; R40.2362 Coma scale, best motor response, obeys commands, at arrival to emergency department; R40.2242 Coma scale, best verbal response, confused conversation, at arrival to emergency department; I95.9 Hypotension, unspecified
CPT/HCPCS: 36415; 80048; 80053; 80306; 80320; 81003; 81025; 82075; 82150; 83520; 83605; 83690; 83735; 84100; 84439; 84443; 85025; 93005; 94640; 94760; 96361; 96365; 96375; 99291

== ENCOUNTER 2018-07-13 06:38 | Emergency (ER) | payer OTHER ==
--- NOTE | 2018-07-13 07:16 | ED ---
Psych HPI - General Chief Complaint: Psychiatric Symptoms Stated Complaint: Mental Health Time Seen by Provider: 07/13/18 07:02 Source: patient, EMS, RN notes reviewed Mode of arrival: EMS Limitations: no limitations - History of Present Illness Initial Comments: This is a 57-year-old female with past medical history significant for alcohol abuse presents to the ER chief complaint suicidal ideation. She states she woke up this morning feeling suicidal states that she wonders whether train tracks and get hit by a train. Patient states she has an appointment in 5 days with [facility] for alcohol abuse. She states she's been drinking daily states that she primarily drinks vodka. She has no physical complaints denies any homicidal ideation. - Related Data Home Medications Medication Instructions Recorded Confirmed Multivitamins, Thera [Multivitamin 1 tab PO DAILY 05/31/17 07/13/18 (formulary)] Levothyroxine Sodium [Synthroid] 200 mcg PO DAILY 04/07/18 07/13/18 lamoTRIgine [LaMICtal] 200 mg PO DAILY 04/07/18 07/13/18 Fluticasone Nasal [place] [Flonase 2 spr EA NOSTRIL DAILY 04/10/18 07/13/18 Nasal [place]] Naltrexone 380mg Im 380 mg IM QMONTH 07/13/18 07/13/18 traZODone HCL [Desyrel] 100 mg PO HS 07/13/18 07/13/18 Previous Rx's Medication Instructions Recorded Escitalopram [Lexapro] 20 mg PO HS #30 tab 06/02/17 Folic Acid 1 mg PO DAILY #30 06/02/17 Montelukast [Singulair] 10 mg PO DAILY #30 06/02/17 Lisinopril [Zestril] 10 mg PO DAILY tab 04/12/18 Topiramate [Topamax] 50 mg PO BID tab 04/12/18 Allergies Allergy/AdvReac Type Severity Reaction Status Date / Time clindamycin Allergy Unknown Rash/Hives Verified 07/13/18 07:59 acetylcysteine Allergy Anaphylaxis Verified 07/13/18 07:59 [From Mucomyst] chlordiazepoxide HCl AdvReac Hallucinati Verified 07/13/18 07:59 [From Librium] ons citalopram [From Celexa] AdvReac Hallucinati Verified 07/13/18 07:59 ons diphenhydramine HCl AdvReac Rapid Verified 07/13/18 07:59 [From Benadryl] Heart Rate Review of Systems ROS Statement: Those systems with pertinent positive or pertinent negative responses have been documented in the HPI. ROS Other: All systems not noted in ROS Statement are negative. Past Medical History Past Medical History: Asthma, Cancer, Hypertension, Thyroid Disorder Additional Past Medical History / Comment(s): History of goiter status post thyroidectomy, questionable history of thyroid cancer although this is not clear , bipolar disorder, depression, history of suicidal ideations, history of drug overdose, alcoholism, seasonal rhinitis, psoriasis, breast cysts, history of broken toes in the right foot, hypertension, History of Any Multi-Drug Resistant Organisms: None Reported Past Surgical History: No Surgical Hx Reported Additional Past Surgical History / Comment(s): Thyroidectomy 1999, SKIN NEVI REMOVED Past Anesthesia/Blood Transfusion Reactions: Previous Problems w/ Anesthesia, Postoperative Nausea & Vomiting (PONV) Additional Past Anesthesia/Blood Transfusion Reaction / Comment(s): Pt lives with in their home. They have been together 12 yrs. Pt is normally independent. Pt is an alcoholic. She is feeling more depressed lately and ashamed of her alcoholism. PT STATED SHE IS A BINGE DRINKER AND IS A BLACK OUT DRINKER,THINKS SHE STARTED DRINKING 4-5 DAYS AGO 3 PINTS A DAY AND WHEN COMING DOWN DRANK SUAVE HAIR SPRAY( does not allow alcohol in the home so pt has drinks hand sox analyst or hair spray per her ). Pt no longer has a drivers license- she has had 2 DUI's. 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 She is seen at [facility] by Dr. Baez and has a councelor-NICO. She has alot of synagogue friends. drives her to her appts. Past Psychological History: Anxiety, Bipolar, Depression Smoking Status: Never smoker Past Alcohol Use History: Abuse, Daily, Heavy Past Drug Use History: Unable to Obtain - Past Family History Father Family Medical History: Cancer Additional Family Medical History / Comment(s): Father at age 64 of esophageal cancer. Father was an alcoholic and had cirrhosis of the liver. Mother Family Medical History: Cancer Additional Family Medical History / Comment(s): Mother of breast cancer at age 42yrs. General Exam Limitations: no limitations General appearance: alert, in no apparent distress Head exam: Present: atraumatic, normocephalic, normal inspection Eye exam: Present: normal appearance, PERRL, EOMI. Absent: scleral icterus, conjunctival injection, periorbital swelling ENT exam: Present: normal exam, mucous membranes moist Neck exam: Present: normal inspection, full ROM. Absent: tenderness, meningismus, lymphadenopathy Respiratory exam: Present: normal lung sounds bilaterally. Absent: respiratory distress, wheezes, rales, rhonchi, stridor Cardiovascular Exam: Present: regular rate, normal rhythm, normal heart sounds. Absent: systolic murmur, diastolic murmur, rubs, gallop, clicks Neurological exam: Present: alert, oriented X3, CN II-XII intact Skin exam: Present: warm, dry, intact, normal color. Absent: rash Course Vital Signs 07/13/18 07/13/18 07/13/18 06:49 07:36 14:06 Temperature 97.9 F 97.0 F L Pulse Rate 72 70 78 Respiratory 19 16 16 Rate Blood Pressure 114/69 91/56 112/67 O2 Sat by Pulse 98 96 100 Oximetry Medical Decision Making - Medical Decision Making 57-year-old male presented for psychiatric evaluation for depression and alcohol abuse. Patient will be transferred to [facility]. Patient is medically cleared. - Lab Data Result diagrams: 07/14/18 03:05 07/14/18 03:05 Lab Results 07/13/18 07/14/18 07/14/18 Range/Units 06:55 03:05 03:05 WBC 3.5 L (3.8-10.6) k/uL RBC 4.26 (3.80-5.40) m/uL Hgb 13.4 (11.4-16.0) gm/dL Hct 42.3 (34.0-46.0) % MCV 99.4 (80.0-100.0) fL MCH 31.4 (25.0-35.0) pg MCHC 31.6 (31.0-37.0) g/dL RDW 15.4 (11.5-15.5) % Plt Count 149 L (150-450) k/uL Neutrophils % 68 % Lymphocytes % 21 % Monocytes % 7 % Eosinophils % 2 % Basophils % 1 % Neutrophils # 2.4 (1.3-7.7) k/uL Lymphocytes # 0.7 L (1.0-4.8) k/uL Monocytes # 0.2 (0-1.0) k/uL Eosinophils # 0.1 (0-0.7) k/uL Basophils # 0.0 (0-0.2) k/uL Macrocytosis Slight Sodium 136 L (137-145) mmol/L Potassium 4.5 (3.5-5.1) mmol/L Chloride 101 (98-107) mmol/L Carbon Dioxide 29 (22-30) mmol/L Anion Gap 6 mmol/L BUN 18 H (7-17) mg/dL Creatinine 0.75 (0.52-1.04) mg/dL Est GFR (CKD-EPI)AfAm >90 (>60 ml/min/1.73 sqM) Est GFR (CKD-EPI)NonAf 89 (>60 ml/min/1.73 sqM) Glucose 76 (74-99) mg/dL Calcium 9.0 (8.4-10.2) mg/dL Total Bilirubin 1.1 (0.2-1.3) mg/dL AST 94 H (14-36) U/L ALT 91 H (9-52) U/L Alkaline Phosphatase 31 L (38-126) U/L Total Protein 5.5 L (6.3-8.2) g/dL Albumin 3.2 L (3.5-5.0) g/dL Urine Color Yellow Urine Appearance Clear (Clear) Urine pH 6.0 (5.0-8.0) Ur Specific [place] 1.008 (1.001-1.035) Urine Protein Negative (Negative) Urine Glucose (UA) Negative (Negative) Urine Ketones Negative (Negative) Urine Blood Negative (Negative) Urine Nitrite Negative (Negative) Urine Bilirubin Negative (Negative) Urine Urobilinogen <2.0 (<2.0) mg/dL Ur Leukocyte Esterase Negative (Negative) Urine Opiates Screen Not Detected (NotDetected) Ur Oxycodone Screen Not Detected (NotDetected) Urine Methadone Screen Not Detected (NotDetected) Ur Propoxyphene Screen Not Detected (NotDetected) Ur Barbiturates Screen Not Detected (NotDetected) U Tricyclic Antidepress Not Detected (NotDetected) Ur Phencyclidine Scrn Not Detected (NotDetected) Ur Amphetamines Screen Not Detected (NotDetected) U Methamphetamines Scrn Not Detected (NotDetected) U Benzodiazepines Scrn Not Detected (NotDetected) Urine Cocaine Screen Not Detected (NotDetected) U Marijuana (THC) Screen Not Detected (NotDetected) Disposition Clinical Impression: Alcoholism /alcohol abuse, Alcohol intoxication, Suicidal ideation, Major depressive disorder, recurrent Disposition: TRANSFER TO PSYCH HOSP/UNIT Condition: Stable Referrals: Karan Huitron MD [Primary Care Provider] - 1-2 days
[2018-07-13 07:17] LABS: Appearance,Urine Clear (Clear); Bilirubin,Urine Negative (Negative); Blood,Urine Negative (Negative); Color,Urine Yellow; Glucose,Urine (UA) Negative (Negative); Ketones,Urine Negative (Negative); Leukocyte Esterase,Urine Negative (Negative); Nitrite,Urine Negative (Negative); Protein,Urine Negative (Negative); Specific Gravity,Urine 1.008 (1.001-1.035); Urobilinogen,Urine <2.0 mg/dL (<2.0)
[2018-07-13 07:29] LABS: Amphetamine Screen,Urine Not Detected (NotDetected); Barbiturate Screen,Urine Not Detected (NotDetected); Benzodiazepines Screen,Urine Not Detected (NotDetected); Cocaine Screen,Urine Not Detected (NotDetected); Methadone Screen, Urine Not Detected (NotDetected); Opiate Screen,Urine Not Detected (NotDetected); Oxycodone Screen, Urine Not Detected (NotDetected); Phencyclidine Screen,Urine Not Detected (NotDetected); Tricyclic Antidepressant,Urine Not Detected (NotDetected); Urn Cannabinoid Scrn Not Detected (NotDetected)
[2018-07-13 07:37] VITALS: RESP 16; TEMP 97
[2018-07-13 14:08] VITALS: BP 112/67; PULSE 78
[2018-07-13] MEDS ORDERED: ONDANSETRON ODT 4 MG TAB PO STA ×2 (16:08→17:20)
[2018-07-13] MEDS: LORazepam 2 MG/ML INJ IM STA ×2 (17:13→17:17)
[2018-07-13] MEDS: ONDANSETRON ODT 4 MG TAB PO STA ×2 (17:13→18:36)
[2018-07-13] MEDS ORDERED: LORazepam 2 MG/ML INJ IV STA (21:25)
[2018-07-13] MEDS ORDERED: SODIUM CHLORIDE 0.9% 1,000 ML with MVI, ADULT NO.4 WITH VIT K 10 ML, THIAMINE 100 MG, F... IV ONE ×4 (21:30)
[2018-07-13] MEDS ORDERED: ONDANSETRON 4 MG/2 ML VIAL IVP STA (21:52)
[2018-07-14 03:21] LABS: Basophils % (A) 1 %; Eosinophils # (A) 0.1 k/uL (0-0.7); Eosinophils % (A) 2 %; HCT 42.3 % (34.0-46.0); HGB 13.4 gm/dL (11.4-16.0); Lymphocytes # (A) 0.7 k/uL (1.0-4.8); Lymphocytes % (A) 21 %; MCH 31.4 pg (25.0-35.0); MCHC 31.6 g/dL (31.0-37.0); MCV 99.4 fL (80.0-100.0); Macrocytosis Slight; Mean Platelet Volume 7.7; Monocytes # (A) 0.2 k/uL (0-1.0); Monocytes % (A) 7 %; Neutrophils # (A) 2.4 k/uL (1.3-7.7); Neutrophils % (A) 68 %; Platelet Count 149 k/uL (150-450); RBC 4.26 m/uL (3.80-5.40); RDW 15.4 % (11.5-15.5); WBC 3.5 k/uL (3.8-10.6)
[2018-07-14 03:26] LABS: ALT 91 U/L (9-52); AST 94 U/L (14-36); Albumin 3.2 g/dL (3.5-5.0); Alkaline Phosphatase 31 U/L (38-126); Anion Gap 6 mmol/L; Blood Urea Nitrogen 18 mg/dL (7-17); Carbon Dioxide 29 mmol/L (22-30); Chloride 101 mmol/L (98-107); Glucose 76 mg/dL (74-99); Potassium 4.5 mmol/L (3.5-5.1); Sodium 136 mmol/L (137-145); Total Bilirubin 1.1 mg/dL (0.2-1.3); Total Protein 5.5 g/dL (6.3-8.2)
[2018-07-14] MEDS ORDERED: ONDANSETRON 4 MG/2 ML VIAL IVP STA (08:49)
== END 2018-07-14 10:35 ==
LOC: EC 06:38
DX: F10.229 Alcohol dependence with intoxication, unspecified (principal); F31.30 Bipolar disorder, current episode depressed, mild or moderate severity, unspecified; R45.851 Suicidal ideations; J45.909 Unspecified asthma, uncomplicated; F41.9 Anxiety disorder, unspecified; E89.0 Postprocedural hypothyroidism; Z88.1 Allergy status to other antibiotic agents; Z88.8 Allergy status to other drugs, medicaments and biological substances; Z79.51 Long term (current) use of inhaled steroids; Z79.899 Other long term (current) drug therapy; Z81.1 Family history of alcohol abuse and dependence
CPT/HCPCS: 82075; 36415; 80053; 85025; 81003; 80306; 99285; 96365; 96366 ×10; 96375 ×2; 96376; 96372; J2060; J3411; J2405 ×2

== ENCOUNTER 2019-03-28 20:13 | Inpatient (IN) | payer MEDICAID, OTHER ==
[2019-03-28] MEDS ORDERED: SODIUM CHLORIDE 0.9% 500 ML 500 ML IV STA (21:47)
[2019-03-28] MEDS ORDERED: SODIUM CHLORIDE 0.9% 1,000 ML IV STA (21:47)
[2019-03-28] MEDS ORDERED: ONDANSETRON 4 MG/2 ML VIAL IVP STA (21:48)
[2019-03-28] MEDS ORDERED: LORazepam 2 MG/ML INJ IV STA (21:48)
[2019-03-28] MEDS ORDERED: SODIUM CHLORIDE 0.9% 1,000 ML with MVI, ADULT NO.4 WITH VIT K 10 ML, THIAMINE 100 MG, F... IV ONE ×4 (21:51)
--- NOTE | 2019-03-28 21:52 | ED ---
General Adult HPI - General Chief complaint: Psychiatric Symptoms Stated complaint: Mental Health Time Seen by Provider: 03/28/19 21:35 Source: patient, family Mode of arrival: ambulatory Limitations: no limitations - History of Present Illness Initial comments: 58-year-old female patient with past medical history significant for chronic alcohol abuse, severe depression, and suicide attempt presents to the emergency department today for evaluation of alcohol withdrawal and vomiting. Patient states that she's been trying to wean herself off of alcohol. Patient states she feels that she is in withdrawal and is unable to stop vomiting. States she's been vomiting for the last 3 days. States she is unable to keep down any food or fluids. Patient states that she is having upper abdominal pain related to the vomiting. States she has been having episodes of diarrhea as well. States that she had her last alcoholic beverage around 1 PM this afternoon. Patient states he is also having suicidal ideation. Patient states her plan is to jump in front of a moving train. Patient states her has been in the hospital since the beginning of March, is in critical condition, which makes her more depressed, anxious, and increases her suicidal thoughts. Patient denies any recent rash, fever, chills, shortness breath, chest pain, numbness, tingling, dizziness, weakness, hematuria, dysuria, urinary urgency, urinary frequency, headache, visual changes, or any other complaints. Patient does see a therapist outpatient, last visit was two weeks ago. - Related Data Home Medications Medication Instructions Recorded Confirmed Multivitamins, Thera [Multivitamin 1 tab PO DAILY 05/31/17 03/28/19 (formulary)] Levothyroxine Sodium [Synthroid] 200 mcg PO DAILY 04/07/18 03/28/19 lamoTRIgine [LaMICtal] 200 mg PO DAILY 04/07/18 03/28/19 Fluticasone Nasal [place] [Flonase 2 spr EA NOSTRIL DAILY 04/10/18 03/28/19 Nasal [place]] traZODone HCL [Desyrel] 100 mg PO HS 07/13/18 03/28/19 ARIPiprazole [Abilify] 10 mg PO HS 03/28/19 03/28/19 Albuterol Inhaler [Ventolin Hfa 1 - 2 puff INHALATION RT-Q6H PRN 03/28/19 03/28/19 Inhaler] Gabapentin [Neurontin] 300 mg PO TID 03/28/19 03/28/19 Ibuprofen [Motrin Ib] 200 mg PO Q6H PRN 03/28/19 03/28/19 Lisinopril [Zestril] 20 mg PO DAILY 03/28/19 03/28/19 Naltrexone HCl [Revia] 50 mg PO DAILY 03/28/19 03/28/19 Thiamine [Vitamin B-1] 100 mg PO DAILY 03/28/19 03/28/19 Vivitrol 380mg Er 380 mg IM Q28D 03/28/19 03/28/19 amLODIPine [Norvasc] 5 mg PO DAILY 03/28/19 03/28/19 Previous Rx's Medication Instructions Recorded Escitalopram [Lexapro] 20 mg PO HS #30 tab 06/02/17 Folic Acid 1 mg PO DAILY #30 06/02/17 Montelukast [Singulair] 10 mg PO DAILY #30 06/02/17 Topiramate [Topamax] 50 mg PO BID tab 04/12/18 Allergies Allergy/AdvReac Type Severity Reaction Status Date / Time clindamycin Allergy Unknown Rash/Hives Verified 03/28/19 21:52 acetylcysteine Allergy Anaphylaxis Verified 03/28/19 21:52 [From Mucomyst] chlordiazepoxide HCl AdvReac Hallucinati Verified 03/28/19 21:52 [From Librium] ons citalopram [From Celexa] AdvReac Hallucinati Verified 03/28/19 21:52 ons diphenhydramine HCl AdvReac Rapid Verified 03/28/19 21:52 [From Benadryl] Heart Rate Review of Systems ROS Statement: Those systems with pertinent positive or pertinent negative responses have been documented in the HPI. ROS Other: All systems not noted in ROS Statement are negative. Past Medical History Past Medical History: Asthma, Cancer, Hypertension, Thyroid Disorder Additional Past Medical History / Comment(s): History of goiter status post thyroidectomy, questionable history of thyroid cancer although this is not clear, bipolar disorder, depression, history of suicidal ideations, history of drug overdose, alcoholism, seasonal rhinitis, psoriasis, breast cysts, history of broken toes in the right foot, hypertension, History of Any Multi-Drug Resistant Organisms: None Reported Past Surgical History: No Surgical Hx Reported Additional Past Surgical History / Comment(s): Thyroidectomy 1999, SKIN NEVI REMOVED Past Anesthesia/Blood Transfusion Reactions: Previous Problems w/ Anesthesia, Postoperative Nausea & Vomiting (PONV) Additional Past Anesthesia/Blood Transfusion Reaction / Comment(s): Pt lives with in their home. They have been together 12 yrs. Pt is normally independent. Pt is an alcoholic. She is feeling more depressed lately and ashamed of her alcoholism. PT STATED SHE IS A BINGE DRINKER AND IS A BLACK OUT DRINKER,THINKS SHE STARTED DRINKING 4-5 DAYS AGO 3 PINTS A DAY AND WHEN COMING DOWN DRANK SUAVE HAIR SPRAY( does not allow alcohol in the home so pt has drinks hand adobe developer or hair spray per her ). Pt no longer has a drivers license- she has had 2 DUI's. 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 She is seen at [facility] by Dr. Baez and has a councelor-NICO. She has alot of nondenominational friends. drives her to her appts. Past Psychological History: Anxiety, Bipolar, Depression Smoking Status: Never smoker Past Alcohol Use History: Abuse, Daily, Heavy Past Drug Use History: Unable to Obtain - Past Family History Father Family Medical History: Cancer Additional Family Medical History / Comment(s): Father at age 64 of esophageal cancer. Father was an alcoholic and had cirrhosis of the liver. Mother Family Medical History: Cancer Additional Family Medical History / Comment(s): Mother of breast cancer at age 42yrs. General Exam Limitations: no limitations General appearance: alert, in no apparent distress, other (Physical well- developed, well-nourished adult female patient in no acute distress. Vital signs upon presentation are temperature 99.1F, pulse 114, respirations 22, blood pressure 134/90, pulse ox 96% on room air.) Eye exam: Present: normal appearance, PERRL, EOMI. Absent: scleral icterus, conjunctival injection, periorbital swelling ENT exam: Present: normal exam, normal oropharynx, mucous membranes moist Respiratory exam: Present: normal lung sounds bilaterally. Absent: respiratory distress, wheezes, rales, rhonchi, stridor Cardiovascular Exam: Present: regular rate, normal rhythm, normal heart sounds. Absent: systolic murmur, diastolic murmur, rubs, gallop, clicks GI/Abdominal exam: Present: soft, tenderness (Mild mid-epigastric tenderness), normal bowel sounds. Absent: distended, guarding, rebound, rigid Neurological exam: Present: alert, oriented X3, CN II-XII intact Psychiatric exam: Present: normal affect, normal mood Skin exam: Present: warm, dry, intact, normal color. Absent: rash Course Vital Signs 03/28/19 03/28/19 03/29/19 20:42 23:44 04:41 Temperature 99.1 F Pulse Rate 114 H 93 119 H Respiratory 22 16 18 Rate Blood Pressure 134/90 128/75 131/97 O2 Sat by Pulse 96 95 99 Oximetry 03/29/19 03/29/19 05:00 11:17 Temperature Pulse Rate 93 103 H Respiratory 18 18 Rate Blood Pressure 138/93 127/78 O2 Sat by Pulse 94 L 98 Oximetry Medical Decision Making - Medical Decision Making 58-year-old female patient presented to the emergency department today for evaluation of alcohol withdrawal and suicidal ideation. Physical examination did reveal soft nontender abdomen. Labs reviewed and are relatively unremarkable. Patient was given medication for alcohol withdrawal and vomiting. Patient's alcohol level was elevated at 237. Care is handed over to my attending Dr. Hayes at 0530. Plan is for psychiatric evaluation. - Lab Data Result diagrams: 03/28/19 22:31 03/28/19 22:31 Lab Results 03/28/19 03/28/19 03/29/19 Range/Units 22:31 22:31 00:52 WBC 5.0 (3.8-10.6) k/uL RBC 4.97 (3.80-5.40) m/uL Hgb 15.5 (11.4-16.0) gm/dL Hct 45.9 (34.0-46.0) % MCV 92.3 (80.0-100.0) fL MCH 31.1 (25.0-35.0) pg MCHC 33.7 (31.0-37.0) g/dL RDW 15.5 (11.5-15.5) % Plt Count 160 (150-450) k/uL Neutrophils % 64 % Lymphocytes % 25 % Monocytes % 6 % Eosinophils % 2 % Basophils % 1 % Neutrophils # 3.2 (1.3-7.7) k/uL Lymphocytes # 1.3 (1.0-4.8) k/uL Monocytes # 0.3 (0-1.0) k/uL Eosinophils # 0.1 (0-0.7) k/uL Basophils # 0.0 (0-0.2) k/uL Sodium 139 (137-145) mmol/L Potassium 3.9 (3.5-5.1) mmol/L Chloride 100 (98-107) mmol/L Carbon Dioxide 21 L (22-30) mmol/L Anion Gap 18 mmol/L BUN 24 H (7-17) mg/dL Creatinine 0.86 (0.52-1.04) mg/dL Est GFR (CKD-EPI)AfAm 87 (>60 ml/min/1.73 sqM) Est GFR (CKD-EPI)NonAf 75 (>60 ml/min/1.73 sqM) Glucose 108 H (74-99) mg/dL Calcium 10.1 (8.4-10.2) mg/dL Phosphorus 3.2 (2.5-4.5) mg/dL Magnesium 1.8 (1.6-2.3) mg/dL Total Bilirubin 1.0 (0.2-1.3) mg/dL AST 162 H (14-36) U/L ALT 128 H (9-52) U/L Alkaline Phosphatase 74 (38-126) U/L Total Protein 8.2 (6.3-8.2) g/dL Albumin 5.1 H (3.5-5.0) g/dL Amylase 56 (30-110) U/L Lipase 124 (23-300) U/L Urine Color Yellow Urine Appearance Cloudy H (Clear) Urine pH 6.0 (5.0-8.0) Ur Specific [place] 1.032 (1.001-1.035) Urine Protein 1+ H (Negative) Urine Glucose (UA) Negative (Negative) Urine Ketones 2+ H (Negative) Urine Blood Negative (Negative) Urine Nitrite Negative (Negative) Urine Bilirubin Negative (Negative) Urine Urobilinogen 2.0 (<2.0) mg/dL Ur Leukocyte Esterase Negative (Negative) Urine RBC 1 (0-5) /hpf Urine WBC 2 (0-5) /hpf Ur Squamous Epith Cells 2 (0-4) /hpf Hyaline Casts 12 H (0-2) /lpf Urine Mucus Rare H (None) /hpf Urine Opiates Screen Not Detected (NotDetected) Ur Oxycodone Screen Not Detected (NotDetected) Urine Methadone Screen Not Detected (NotDetected) Ur Propoxyphene Screen Not Detected (NotDetected) Ur Barbiturates Screen Not Detected (NotDetected) U Tricyclic Antidepress Not Detected (NotDetected) Ur Phencyclidine Scrn Not Detected (NotDetected) Ur Amphetamines Screen Not Detected (NotDetected) U Methamphetamines Scrn Not Detected (NotDetected) U Benzodiazepines Scrn Not Detected (NotDetected) Urine Cocaine Screen Not Detected (NotDetected) U Marijuana (THC) Screen Not Detected (NotDetected) Serum Alcohol 237 H* mg/dL Disposition Clinical Impression: Suicidal ideation Disposition: TRANSFER TO PSYCH HOSP/UNIT Condition: Serious - Out of Hospital Transfer - Req. Specs Out of Hospital Transfer - Requested Specifics: Psychiatric Non-ICU ([facility] Mental Health Unit)
[2019-03-28 22:47] LABS: Albumin 5.1 g/dL (3.5-5.0); Calcium 10.1 mg/dL (8.4-10.2); Magnesium 1.8 mg/dL (1.6-2.3); Phosphorus 3.2 mg/dL (2.5-4.5); Potassium 3.9 mmol/L (3.5-5.1); Total Protein 8.2 g/dL (6.3-8.2)
[2019-03-28 22:48] LABS: Basophils % (A) 1 %; Eosinophils # (A) 0.1 k/uL (0-0.7); Eosinophils % (A) 2 %; HCT 45.9 % (34.0-46.0); HGB 15.5 gm/dL (11.4-16.0); Lymphocytes # (A) 1.3 k/uL (1.0-4.8); Lymphocytes % (A) 25 %; MCH 31.1 pg (25.0-35.0); MCHC 33.7 g/dL (31.0-37.0); MCV 92.3 fL (80.0-100.0); Mean Platelet Volume 8.6; Monocytes # (A) 0.3 k/uL (0-1.0); Monocytes % (A) 6 %; Neutrophils # (A) 3.2 k/uL (1.3-7.7); Neutrophils % (A) 64 %; Platelet Count 160 k/uL (150-450); RBC 4.97 m/uL (3.80-5.40); RDW 15.5 % (11.5-15.5)
[2019-03-29] MEDS ORDERED: ONDANSETRON 4 MG/2 ML VIAL IVP STA ×2 (00:56→04:36)
[2019-03-29 01:07] LABS: Appearance,Urine Cloudy (Clear); Bilirubin,Urine Negative (Negative); Blood,Urine Negative (Negative); Color,Urine Yellow; Glucose,Urine (UA) Negative (Negative); Hyaline Casts,Urine 12 /lpf (0-2); Ketones,Urine 2+ (Negative); Leukocyte Esterase,Urine Negative (Negative); Mucus,Urine Rare /hpf; Nitrite,Urine Negative (Negative); Protein,Urine 1+ (Negative); RBC,Urine 1 /hpf (0-5); Specific Gravity,Urine 1.032 (1.001-1.035); Squamous Epithelial Cell,Urine 2 /hpf (0-4); WBC,Urine 2 /hpf (0-5)
[2019-03-29 01:15] LABS: Amphetamine Screen,Urine Not Detected (NotDetected); Barbiturate Screen,Urine Not Detected (NotDetected); Benzodiazepines Screen,Urine Not Detected (NotDetected); Cocaine Screen,Urine Not Detected (NotDetected); Methadone Screen, Urine Not Detected (NotDetected); Opiate Screen,Urine Not Detected (NotDetected); Oxycodone Screen, Urine Not Detected (NotDetected); Phencyclidine Screen,Urine Not Detected (NotDetected); Tricyclic Antidepressant,Urine Not Detected (NotDetected); Urn Cannabinoid Scrn Not Detected (NotDetected)
[2019-03-29] MEDS ORDERED: LORazepam 2 MG/ML INJ IV PRN ×2 (04:35)
[2019-03-29] MEDS ORDERED: FAMOTIDINE 20 MG/2 ML VIAL IV STA (04:36)
[2019-03-29] MEDS: LORazepam 2 MG/ML INJ IV PRN ×2 (07:51→11:16)
[2019-03-29] MEDS ORDERED: MAG HYDROX/AL HYDROX/SIMETH 30 ML CUP PO PRN (12:55)
[2019-03-29] MEDS ORDERED: MAGNESIUM HYDROXIDE 2,400 MG/10 ML CUP PO PRN (12:55)
--- NOTE | 2019-03-29 14:29 | P.CONS ---
History of Present Illness - Reason for Consult Consult date: 03/29/19 Medical management Requesting physician: Ben Moran - Chief Complaint Depression and alcohol intoxication - History of Present Illness This is a 58-year-old female with a known history of alcohol abuse, depression, previous suicide attempts, hypothyroidism, bipolar, asthma and hypertension. Patient presents to the emergency room for evaluation of alcohol withdrawal and vomiting. Patient states that she has been drinking again over the last couple of weeks. She's had increased stressors at home. Her has been ill and in critical care at [facility]. She reports that she started vomiting due to the alcohol withdrawal. And did have another half a pint of liquor yesterday afternoon to help with the withdrawal symptoms. Patient started to raya ve suicidal thoughts about jumping in front of a train. She then came into the ER for further evaluation and treatment. Patient has now been admitted to the psychiatric unit. We have been consulted for medical management. She's currently on the Ativan as needed for alcohol withdrawal. And has been getting Zofran as needed for her vomiting. AST is elevated at 162 ALT is 128. Alcohol level [id number]. Drug screen was negative. She is dehydrated with a BUN of 24 creatinine is normal. Patient had a couple of 99 heart rate of 104 blood pressures 120 669. She's been restarted on her home medications. Patient denies any fever, chills, sweats, chest pain or shortness of breath or urinary s ymptoms. She did have a few loose stools that has seemed to resolve. Denies any abdominal pain. Review of Systems Please refer to HPI otherwise unremarkable Past Medical History Past Medical History: Asthma, Cancer, Hypertension, Thyroid Disorder Additional Past Medical History / Comment(s): History of goiter status post thyroidectomy, history of thyroid cancer , bipolar disorder, depression, history of suicidal ideations, history of drug overdose, alcoholism, seasonal rhinitis, psoriasis, breast cysts, history of broken toes in the right foot, hypertension, History of Any Multi-Drug Resistant Organisms: None Reported Past Surgical History: No Surgical Hx Reported Additional Past Surgical History / Comment(s): Thyroidectomy 1999, SKIN NEVI REMOVED Past Anesthesia/Blood Transfusion Reactions: Previous Problems w/ Anesthesia, Postoperative Nausea & Vomiting (PONV) Additional Past Anesthesia/Blood Transfusion Reaction / Comm: Pt lives with in their home. They have been together 12 yrs. Pt is normally independent. Pt is an alcoholic. She is feeling more depressed lately and ashamed of her alcoholism. PT STATED SHE IS A BINGE DRINKER AND IS A BLACK OUT DRINKER,THINKS SHE STARTED DRINKING 4-5 DAYS AGO 3 PINTS A DAY AND WHEN COMING DOWN DRANK SUAVE HAIR SPRAY( does not allow alcohol in the home so pt has drinks hand equal opportunity specialist or hair spray per her ). Pt no longer has a drivers license- she has had 2 DUI's. 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 She is seen at [facility] by Dr. Baez and has a councelor-NICO. She has alot of uatsdin friends. drives her to her appts. Past Psychological History: Anxiety, Bipolar, Depression Smoking Status: Never smoker Past Alcohol Use History: Abuse, Daily, Heavy Past Drug Use History: Unable to Obtain - Past Family History Father Family Medical History: Cancer Additional Family Medical History / Comment(s): Father at age 64 of esophageal cancer. Father was an alcoholic and had cirrhosis of the liver. Mother Family Medical History: Cancer Additional Family Medical History / Comment(s): Mother of breast cancer at age 42yrs. Medications and Allergies Home Medications Medication Instructions Recorded Confirmed Type Multivitamins, Thera [Multivitamin 1 tab PO DAILY 05/31/17 03/28/19 History (formulary)] Escitalopram [Lexapro] 20 mg PO HS #30 tab 06/02/17 03/28/19 Rx Folic Acid 1 mg PO DAILY #30 06/02/17 03/28/19 Rx Montelukast [Singulair] 10 mg PO DAILY #30 06/02/17 03/28/19 Rx Levothyroxine Sodium [Synthroid] 200 mcg PO DAILY 04/07/18 03/28/19 History lamoTRIgine [LaMICtal] 200 mg PO DAILY 04/07/18 03/28/19 History Fluticasone Nasal [place] [Flonase 2 spr EA NOSTRIL DAILY 04/10/18 03/28/19 History Nasal [place]] Topiramate [Topamax] 50 mg PO BID tab 04/12/18 03/28/19 Rx traZODone HCL [Desyrel] 100 mg PO HS 07/13/18 03/28/19 History ARIPiprazole [Abilify] 10 mg PO HS 03/28/19 03/28/19 History Albuterol Inhaler [Ventolin Hfa 1 - 2 puff INHALATION RT-Q6H PRN 03/28/19 03/28/19 History Inhaler] Gabapentin [Neurontin] 300 mg PO TID 03/28/19 03/28/19 History Ibuprofen [Motrin Ib] 200 mg PO Q6H PRN 03/28/19 03/28/19 History Lisinopril [Zestril] 20 mg PO DAILY 03/28/19 03/28/19 History Naltrexone HCl [Revia] 50 mg PO DAILY 03/28/19 03/28/19 History Thiamine [Vitamin B-1] 100 mg PO DAILY 03/28/19 03/28/19 History Vivitrol 380mg Er 380 mg IM Q28D 03/28/19 03/28/19 History amLODIPine [Norvasc] 5 mg PO DAILY 03/28/19 03/28/19 History Allergies Allergy/AdvReac Type Severity Reaction Status Date / Time clindamycin Allergy Unknown Rash/Hives Verified 03/28/19 21:52 acetylcysteine Allergy Anaphylaxis Verified 03/28/19 21:52 [From Mucomyst] chlordiazepoxide HCl AdvReac Hallucinati Verified 03/28/19 21:52 [From Librium] ons citalopram [From Celexa] AdvReac Hallucinati Verified 03/28/19 21:52 ons diphenhydramine HCl AdvReac Rapid Verified 03/28/19 21:52 [From Benadryl] Heart Rate Physical Exam Vitals: Vital Signs Temp Pulse Resp BP Pulse Ox 03/29/19 13:55 99.0 F 104 H 18 126/69 98 03/29/19 11:17 103 H 18 127/78 98 03/29/19 05:00 93 18 138/93 94 L 03/29/19 04:41 119 H 18 131/97 99 03/28/19 23:44 93 16 128/75 95 03/28/19 20:42 99.1 F 114 H 22 134/90 96 Intake and Output 03/28/19 03/29/19 03/29/19 22:59 06:59 14:59 Other: Weight 77.111 kg Head normocephalic Neck supple Lungs clear to auscultation bilaterally no wheezing or crackles Heart regular rate and rhythm S1-S2, no rub or gallop Abdomen is soft nontender nondistended positive bowel sounds no hepatospl enomegaly Extremities no edema Neuro alert and orientated to 3 Psychiatric patient is sad and crying. She's able to answer questions appropriately. Results CBC & Chem 7: 03/28/19 22:31 03/28/19 22:31 Labs: Abnormal Lab Results - Last 24 Hours (Table) 03/28/19 03/29/19 Range/Units 22:31 00:52 Carbon Dioxide 21 L (22-30) mmol/L BUN 24 H (7-17) mg/dL Glucose 108 H (74-99) mg/dL AST 162 H (14-36) U/L ALT 128 H (9-52) U/L Albumin 5.1 H (3.5-5.0) g/dL Urine Appearance Cloudy H (Clear) Urine Protein 1+ H (Negative) Urine Ketones 2+ H (Negative) Hyaline Casts 12 H (0-2) /lpf Urine Mucus Rare H (None) /hpf Serum Alcohol 237 H* mg/dL Assessment and Plan Assessment: 1. Suicidal ideation and severe depression: Patient has been admitted to the psychiatric unit 2. Alcohol intoxication with history of alcohol abuse: Alcohol level of 237. Continue IV Ativan as needed for alcohol withdrawal. Continue thiamine, folic acid and multivitamin 3. Elevated liver enzymes secondary to alcohol use 4. Mildly dehydrated. BUN elevated at 24. Patient received IV fluids in the ER. We'll repeat labs in a.m. 5. Nausea and vomiting likely related to alcohol withdrawal. And when necessary oral Zofran and Protonix 6. History of thyroid cancer status post thyroidectomy. Now has hypothyroidism and requires Synthroid. TSH level has been ordered 7. History of bipolar 8. Essential hypertension: Resume home blood pressure medications 9. Sinus tachycardia: Likely related to alcohol withdrawal. Check EKG to confirm sinus tachycardia 10. History of mild intermittent asthma: Stable no evidence of exacerbation. continue albuterol inhaler as needed Thank you for this consultation. We will continue to follow along as needed. Time with Patient: Greater than 30 (Greater than 50% of the total time spent in counseling and coordination of care.I performed an examination of the patient and discussed their management with the physician Environmental Protection Officer. I have reviewed the Physician Environmental Protection Officer's notes and agree with the documented findings and plan of care)
[2019-03-29] MEDS ORDERED: ONDANSETRON ODT 4 MG TAB PO PRN (14:30)
[2019-03-29] MEDS: PANTOPRAZOLE 40 MG TABLET PO SCH (14:47)
[2019-03-29 14:59] VITALS: BMI 32.1
[2019-03-29] MEDS: GABAPENTIN 300 MG CAP PO SCH ×2 (16:39→20:24)
[2019-03-29] MEDS: LORazepam 1 MG TAB PO SCH (17:48)
[2019-03-29] MEDS: traZODone HCL 100 MG TAB PO SCH (20:23)
[2019-03-29] MEDS: ESCITALOPRAM 20 MG TAB PO SCH (20:24)
[2019-03-29] MEDS: cloNIDine HCL 0.1 MG TAB PO SCH (20:24)
[2019-03-29] MEDS: TOPIRAMATE 25 MG TAB PO SCH (20:24)
[2019-03-29] MEDS ORDERED: ARIPiprazole 10 MG TAB PO SCH (21:00)
[2019-03-29] MEDS: ALBUTEROL INHALER 60 PUFF/8 GM INHALER INHALATION PRN (22:00)
[2019-03-30] MEDS: FLUTICASONE 50MCG/SPRAY NASAL 16GM EA NOSTRIL SCH (08:20)
[2019-03-30] MEDS: NALTREXONE HCL 50 MG TAB PO SCH (08:21)
[2019-03-30] MEDS: LEVOTHYROXINE 100 MCG TAB PO SCH (08:21)
[2019-03-30] MEDS: GABAPENTIN 300 MG CAP PO SCH ×3 (08:21→20:58)
[2019-03-30] MEDS: TOPIRAMATE 25 MG TAB PO SCH ×2 (08:21→20:58)
[2019-03-30] MEDS: lamoTRIgine 100 MG TAB PO SCH (08:21)
[2019-03-30] MEDS: THIAMINE 100 MG TAB PO SCH (08:22)
[2019-03-30] MEDS: FOLIC ACID 1 MG TAB PO SCH (08:22)
[2019-03-30] MEDS: PANTOPRAZOLE 40 MG TABLET PO SCH (08:22)
[2019-03-30] MEDS: amLODIPine 5 MG TAB PO SCH (08:22)
[2019-03-30] MEDS: MULTIVITAMINS, THERA 1 EACH TAB PO SCH (08:22)
[2019-03-30] MEDS: MONTELUKAST 10 MG TAB PO SCH (08:22)
[2019-03-30] MEDS: LISINOPRIL 20 MG TAB PO SCH (08:22)
[2019-03-30] MEDS: LORazepam 1 MG TAB PO SCH ×4 (08:26→18:06)
[2019-03-30] MEDS: cloNIDine HCL 0.1 MG TAB PO SCH ×2 (08:26→20:57)
[2019-03-30] MEDS: ALBUTEROL INHALER 60 PUFF/8 GM INHALER INHALATION PRN (08:29)
[2019-03-30 08:40] LABS: ALT 102 U/L (9-52); AST 111 U/L (14-36); Albumin 3.5 g/dL (3.5-5.0); Alkaline Phosphatase 42 U/L (38-126); Anion Gap 8 mmol/L; Blood Urea Nitrogen 14 mg/dL (7-17); Calcium 9.2 mg/dL (8.4-10.2); Carbon Dioxide 26 mmol/L (22-30); Chloride 104 mmol/L (98-107); Glucose 71 mg/dL (74-99); Potassium 3.6 mmol/L (3.5-5.1); Sodium 138 mmol/L (137-145); Total Protein 5.9 g/dL (6.3-8.2)
[2019-03-30] MEDS: ACETAMINOPHEN TAB 325 MG TAB PO PRN (12:37)
[2019-03-30 14:27] LABS: Hemoglobin A1C 5.4 % (4.0-6.0)
[2019-03-30] MEDS: ARIPiprazole 10 MG TAB PO SCH (18:06)
[2019-03-30] MEDS: ESCITALOPRAM 20 MG TAB PO SCH (20:58)
[2019-03-30] MEDS: traZODone HCL 100 MG TAB PO SCH (20:58)
[2019-03-31] MEDS: LORazepam 1 MG TAB PO SCH ×3 (00:52→12:26)
[2019-03-31] MEDS: ALBUTEROL INHALER 60 PUFF/8 GM INHALER INHALATION PRN ×3 (01:09→21:52)
--- NOTE | 2019-03-31 05:16 | HP ---
HISTORY AND PHYSICAL DATE OF SERVICE: 03/30/2019. IDENTIFYING DATA: The patient is a 58-year-old female. She lives with her . She was admitted through the emergency room. CHIEF COMPLAINT: The patient was depressed. She had relapsed to drinking and has long-term severe problems with alcohol. HISTORY OF PRESENT ILLNESS: The patient has a severe history of alcohol dependence since April 2014. The patient has had over 25 hospitalizations in this facility for psychiatric or substance abuse problems. It is noteworthy that I had consulted on the patient April 09, 2018. At that time, she had spent 1 year in a residential treatment facility for alcohol. She relapsed into drinking essentially the day she got out of the program and returned to home. She has had improvement in her drinking problems more recently. She noted that her drinking habit since last fall has been that she will drink half a pint once a week to once every 2-3 weeks. She had a period of 3 weeks of sobriety up until the middle of March and then relapsed to drinking again. She states that she obtains alcohol by walking 1 mile to a local store. In the last 5 days prior to this admission, she was drinking 1 pint a day with her last drink being on 03/28 at 6:10 in the morning. She says the main stress that she has been dealing with is that her had lung collapse relating to his history of COPD. He spent a number of days hospitalized in [place] and then just in the last several days, was transferred to [facility]. She said that at times that he would call her in the middle of the night describing anxiety so that she would have to come to the hospital. She was very stressed with the situation in. She notes that since April of 2018, she was doing better with her drinking. She went into [place] for a week. She has court issues relating to her drinking. She said she got on a very regular program where she was seeing a therapist on a weekly basis. She was seeing Dr. Calvo at [facility] about once a month. She was involved in a therapy group once a week and an exercise group once a week. She notes that typically when she does drink, she usually drinks around 5 in the evening. She states that she has been sleeping poorly. She has loss of motivation, energy and interest. She has had a long history of depression, though overall her depression is pretty closely connected to her drinking. She has had very limited periods where she would go without alcohol. He has had suicide thoughts including thoughts of jumping in front of a train. She denies problems with hallucinations or delusions. She does not clearly identify past trauma or posttraumatic issues. She does make some suggestions that they may have been traumatic issues in her past. She has not clearly had any manic episodes. She reports anxiety, though she is denying current problems with any panic symptoms. Current psychotropic medications include Lexapro 20 mg a day. Abilify 10 mg a day, ReVia 50 mg a day, Lamictal 200 mg a day and trazodone 100 mg a day. She is also on Topamax 50 mg twice a day. She is admitted for further evaluation. SUBSTANCE USE HISTORY: As above. PAST MEDICAL HISTORY AND REVIEW OF SYSTEMS: As per medical consultation Aneesh. FAMILY AND SOCIAL HISTORY: Refer the reader to previous admission notes and multiple medical records for details. 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 In the last year, she has just been living at home with her . MENTAL STATUS EXAM: The patient gave fair eye contact. Psychomotor activity was restless. She answered questions appropriately. She did not say a lot. She was not spontaneous or interactive. Her affect was flat. Her mood depressed. She was significantly distressed. There was no indication of thought disorder. Cognitive exam was clear. She was oriented and alert. Recent remote memory was intact. She remembered 2 out of 3 objects in 4 minutes. Insight was poor. Judgment poor. Fund of knowledge average. PHYSICAL EXAM: As per medical consultation of Dr. Melendrez. ASSESSMENT: This 58-year-old female is diagnosed with alcohol dependence, continuous and major depression, there are some current stress factors in regards to her 's precarious health situation. She says that she has had a fairly supportive program to maintain sobriety as well as to support treatment out of depression. She has difficulty with the issue that she continues to drink on a limited basis during periods that she is more stable in regards to substance use issues. STRENGTHS: Include [place] intelligence. WEAKNESS: Includes pervasive potentially a life-threatening substance abuse issues. DIAGNOSES: 1. Alcohol dependence, continuous. 2. Major depression, chronic and recurrent. 3. Acute alcohol withdrawal. 4. History of thyroid cancer with history of thyroidectomy. 5. Hypertension. 6. Sick sinus tachycardia. 7. History of mild intermittent asthma. RECOMMENDATIONS: Patient will be admitted for comprehensive medical psychiatric and psychosocial evaluation. We will engage the patient in individual and group therapeutic activities. I had an extensive discussion with the patient regarding alcohol use disorder. I will continue the patient on her outpatient medications including Lexapro 20 mg a day and Lamictal 200 mg a day and Abilify. I will increase Abilify to 10 mg twice a day to help reduce physiologic stress response relating to her alcohol withdrawal. She will be started on ReVia 50 mg a day and trazodone 100 mg at bedtime. She is also on Topamax 50 mg twice a day and Neurontin 300 mg 3 times a day. We will monitor for early acute withdrawal and risks for an severe withdrawal issues. We will focus on stabilization and discharge planning. LISA / JACK: [id number] / KOBY
[2019-03-31] MEDS: LEVOTHYROXINE 100 MCG TAB PO SCH (06:12)
[2019-03-31] MEDS: FLUTICASONE 50MCG/SPRAY NASAL 16GM EA NOSTRIL SCH (08:31)
[2019-03-31] MEDS: GABAPENTIN 300 MG CAP PO SCH ×3 (08:32→21:49)
[2019-03-31] MEDS: ARIPiprazole 10 MG TAB PO SCH ×2 (08:32→17:57)
[2019-03-31] MEDS: MONTELUKAST 10 MG TAB PO SCH (08:33)
[2019-03-31] MEDS: lamoTRIgine 100 MG TAB PO SCH (08:33)
[2019-03-31] MEDS: FOLIC ACID 1 MG TAB PO SCH (08:33)
[2019-03-31] MEDS: THIAMINE 100 MG TAB PO SCH (08:33)
[2019-03-31] MEDS: MULTIVITAMINS, THERA 1 EACH TAB PO SCH (08:33)
[2019-03-31] MEDS: amLODIPine 5 MG TAB PO SCH (08:33)
[2019-03-31] MEDS: PANTOPRAZOLE 40 MG TABLET PO SCH (08:33)
[2019-03-31] MEDS: TOPIRAMATE 25 MG TAB PO SCH ×2 (08:33→21:49)
[2019-03-31] MEDS: NALTREXONE HCL 50 MG TAB PO SCH (08:33)
[2019-03-31] MEDS: LISINOPRIL 20 MG TAB PO SCH (08:33)
[2019-03-31] MEDS: cloNIDine HCL 0.1 MG TAB PO SCH ×2 (08:36→21:49)
--- NOTE | 2019-03-31 14:25 | PN ---
PROGRESS NOTE DATE OF SERVICE: 03/31/2019 CHIEF COMPLAINT: The patient was depressed. She had relapsed to drinking and has long-term severe problems with alcohol. INTERVAL HISTORY: Patient has been doing fair. She had a quiet evening last night. She attended groups. She said that last night she slept very well, which was a positive for her. Today she has been up. She comes out in the day area. She says she has been making an effort in groups. She made some suggestion that the groups are not so productive for her because she has been to so many groups before. She did state that she was making an effort to utilize the groups more. She says her mood is fair. She continues to have some down moods. She notes some stomach upset. She said this morning she had some upset stomach and vomiting, though part of that related to her getting into a coughing spell because of some sinus drainage she was having. She notes that she got news today that her is doing better and may be off the vent in 24 hours. She says that she does not drive, and to get back home from her hospital stay she will rely on her sister-in- law; and when she is at home she will relay on her efhh[employer]sa-enc and taoism members to help get her in the community. She notes no problems with her medications. MENTAL STATUS EXAMINATION: Patient gave fair eye contact. Psychomotor activity was slowed. Speech was monotone. She answered questions with brief responses. Her thoughts were clear. Her affect was blunted, her mood quiet. She was mild to moderately distressed. There was no indication of thought disorder. Cognition was clear. ASSESSMENT: I will continue the current diagnosis and general treatment plan. I will begin tapering her Ativan. Vital signs have been stable. She has not had significant withdrawal signs or symptoms. CIWA scores have been negligible. I will reduce Ativan to 0.5 mg 3 times a day. I would continue a taper to get her off Ativan altogether, as I advised the patient that long-term use of benzodiazepines is extremely high risk for her in regards to her substance abuse problems. We will focus on stabilization and discharge planning. MMODL / IJN: [id number] /
[2019-03-31] MEDS: LORazepam 0.5 MG TAB PO SCH ×2 (15:49→21:49)
[2019-03-31] MEDS: ESCITALOPRAM 20 MG TAB PO SCH (21:49)
[2019-03-31] MEDS: traZODone HCL 100 MG TAB PO SCH (21:53)
[2019-04-01] MEDS: LEVOTHYROXINE 100 MCG TAB PO SCH (06:12)
[2019-04-01] MEDS: PANTOPRAZOLE 40 MG TABLET PO SCH (09:15)
[2019-04-01] MEDS: amLODIPine 5 MG TAB PO SCH (09:15)
[2019-04-01] MEDS: ARIPiprazole 10 MG TAB PO SCH (09:15)
[2019-04-01] MEDS: cloNIDine HCL 0.1 MG TAB PO SCH ×2 (09:15→20:55)
[2019-04-01] MEDS: GABAPENTIN 300 MG CAP PO SCH ×3 (09:16→20:56)
[2019-04-01] MEDS: MONTELUKAST 10 MG TAB PO SCH (09:16)
[2019-04-01] MEDS: THIAMINE 100 MG TAB PO SCH (09:16)
[2019-04-01] MEDS: MULTIVITAMINS, THERA 1 EACH TAB PO SCH (09:16)
[2019-04-01] MEDS: ALBUTEROL INHALER 60 PUFF/8 GM INHALER INHALATION PRN (09:16)
[2019-04-01] MEDS: FOLIC ACID 1 MG TAB PO SCH (10:33)
[2019-04-01] MEDS: FLUTICASONE 50MCG/SPRAY NASAL 16GM EA NOSTRIL SCH (10:33)
[2019-04-01] MEDS: LISINOPRIL 20 MG TAB PO SCH (10:35)
[2019-04-01] MEDS: TOPIRAMATE 25 MG TAB PO SCH ×2 (10:35→20:56)
[2019-04-01] MEDS: lamoTRIgine 100 MG TAB PO SCH (10:35)
[2019-04-01] MEDS: NALTREXONE HCL 50 MG TAB PO SCH (10:36)
[2019-04-01] MEDS: LORazepam 0.5 MG TAB PO SCH ×2 (10:37→20:58)
--- NOTE | 2019-04-01 11:25 | P.PN ---
Subjective Progress Note Date: 04/01/19 Rosa Saba is a 58-year-old female admitted to the psychiatry unit due to depression and suicidal ideation Initial consult On 03/29/2019 I was called again to see patient due to upper respiratory infection with cough and yellow-green sputum production Patient was seen and examined on 04/01/2019 in the psychiatry unit she is complaining of sore throat, runny nose, and cough with yellow-green sputum prod uction there is no fever or chills no headache or dizziness no chest pain no shortness of breath no nausea or vomiting no abdominal pain no diarrhea and no urinary symptoms Objective - Vital Signs Vital signs: Vital Signs Temp 98 F 04/01/19 06:28 Pulse 59 L 04/01/19 09:19 Resp 16 04/01/19 06:28 BP 105/65 04/01/19 09:19 Pulse Ox 96 03/29/19 14:45 - Exam In general patient is alert and oriented 3 in no apparent distress he has frequent thirst of crying HEENT head normocephalic and atraumatic there is nasal congestion and throat erythema Neck is supple no JVD no goiter no lymphadenopathy Chest exam reveals a scattered crackles bilaterally no wheezing Cardiac exam reveals regular heart sounds S1 and S2 no gallops no murmurs Abdomen is soft nontender no organomegaly with normal bowel sounds Extremity exam reveals no edema no cyanosis or clubbing - Labs CBC & Chem 7: 03/28/19 22:31 03/30/19 07:42 Assessment and Plan Plan: 1. Upper respiratory infection with evidence of acute bronchitis, at this time will check influenza A and B nasal swab for with PCR, will start patient on Au gmentin 500 mg twice daily, further recommendation will depend on clinical 2. Suicidal ideation and severe depression: Patient has been admitted to the psychiatric unit 3. Alcohol intoxication with history of alcohol abuse: Alcohol level of 237. Continue IV Ativan as needed for alcohol withdrawal. Continue thiamine, folic acid and multivitamin 4. Elevated liver enzymes secondary to alcohol use 5. Mildly dehydrated. BUN elevated at 24. Patient received IV fluids in the ER. We'll repeat labs in a.m. 6. Nausea and vomiting likely related to alcohol withdrawal. And when necessary oral Zofran and Protonix 7. History of thyroid cancer status post thyroidectomy. Now has hypothyroidism and requires Synthroid. TSH level has been ordered 8. History of bipolar 9. Essential hypertension: Resume home blood pressure medications 10. Sinus tachycardia: Likely related to alcohol withdrawal. Check EKG to confirm sinus tachycardia 11. History of mild intermittent asthma: Stable no evidence of exacerbation. continue albuterol inhaler as needed
[2019-04-01] MEDS: AMOXIC-POT CLAV 500-125 MG 1 EACH TAB PO SCH ×2 (12:18→21:27)
--- NOTE | 2019-04-01 12:58 | PN ---
PROGRESS NOTE DATE OF SERVICE: 04/01/2019. CHIEF COMPLAINT: The patient was depressed. She had relapsed to drinking and has chcf severe problems with alcohol. INTERVAL HISTORY: Patient has been doing fair. She had a quiet evening last night. She attends groups. She socializes. She comes out in the day area. She has been doing some therapeutic walking to help manage early acute withdrawal. She said she slept about 8 hours last night. Today she has been up. She attends group. She is appropriate in groups. She says she feels a little tired in the day and was wondering about her medications. It is noteworthy that I had an extensive discussion with the patient regarding her substance use issues. She has very little insight into her alcohol use. One standout situation is that she spent 1 year in an inpatient drug rehabilitation program. She said she could of gotten alcohol while she was in the program, though she did not. Yet on the day that she was discharged, which was April 2018, she relapsed and ended up being admitted to the medical floor for alcohol intoxication and acute alcohol withdrawal. April 08, 2018. Another noteworthy situation is last April, she got adjudicated to [facility], which she continues with. She has random Breathalyzers and is at risk for going to [facility] if she blows positive. She said she had 1 [facility] stint related to this. She has also had 5 other [facility] stints related to driving while intoxicated prior to the mental health court. She acknowledges that she has done fairly well through the last year with alcohol mainly because of the incentive around the mental health court. At the same time, she acknowledges that she drinks a half a pint once a week to once every other week and that she says basically she is playing "PanTheryx" knowing that she would go to [facility] if she blew positive. She says that she is uncertain at this time what will be the results of her current relapse. It is also noteworthy that she said the impetus for her drinking this time was the fact that her had hospitalization for lung collapse and has been on a ventilator since his recent admission. She said that was the stress that led her to drinking, though she had very poor insight into the idea that situations like that might actually be an incentive for her to do just the opposite and not drink. She does note that alcohol runs in her family. Her mother was addicted to Valium. Her brother has alcoholism. Her father developed alcoholism in the 50s. When we discussed the possibility of Antabuse, she was steadfast against Antabuse and had no insight into the notion that she would refuse Antabuse, though I would except the potential of going to [facility] based on mental health court digressions. MENTAL STATUS: Patient gave fair eye contact. Psychomotor activity was slowed. Speech was monotone. She answered questions with brief responses. Her thoughts were clear. Her affect flat. Mood reserved. She was moderately distressed. ASSESSMENT: I will continue the current diagnosis and treatment plan. I will reduce Abilify to 7.5 mg twice a day. Ativan will be reduced to 0.5 mg at bedtime only with the plan to taper off altogether. I will reduce trazodone to 50 mg at bedtime. I discussed with the patient that medicines like her Lexapro are not relevant at that this point in her treatment and that in fact if she continues using alcohol on a regular basis even half a point once every week or 2, that the likelihood of benefits from an antidepressant are very low. Whether or not there is a specific indication for her being on Lamictal and Neurontin is not clear. I strongly recommended her to consider use of Antabuse as potentially the only option that may support her at this point in not drinking as there were have been no other interventions or incentives for her stopping drinking including no benefit from the risk for her being jailed for relapse to drinking which she has been doing nor the fact of her having a life-threatening ongoing medical condition. It is noted that lab work from yesterday showed a drop in her liver functions. On March 28, AST 162, ALT 128, 03/30, AST 111, ALT 102. We will continue to focus on stabilization and discharge planning. MMODL / IJN: [id number] /
[2019-04-01 15:33] LABS: Appearance,Urine Clear (Clear); Bilirubin,Urine Negative (Negative); Blood,Urine Negative (Negative); Color,Urine Light Yellow; Glucose,Urine (UA) Negative (Negative); Ketones,Urine Negative (Negative); Leukocyte Esterase,Urine Negative (Negative); Nitrite,Urine Negative (Negative); Protein,Urine Negative (Negative); Specific Gravity,Urine 1.004 (1.001-1.035)
[2019-04-01] MEDS: ARIPiprazole 5 MG TAB PO SCH (18:48)
[2019-04-01] MEDS: ESCITALOPRAM 20 MG TAB PO SCH (20:56)
[2019-04-01] MEDS: traZODone HCL 50 MG TAB PO SCH (20:58)
[2019-04-02] MEDS: LEVOTHYROXINE 100 MCG TAB PO SCH (06:15)
[2019-04-02] MEDS: ARIPiprazole 5 MG TAB PO SCH ×2 (07:52→18:33)
[2019-04-02] MEDS: PANTOPRAZOLE 40 MG TABLET PO SCH (07:53)
[2019-04-02] MEDS: THIAMINE 100 MG TAB PO SCH (08:45)
[2019-04-02] MEDS: AMOXIC-POT CLAV 500-125 MG 1 EACH TAB PO SCH ×2 (08:45→21:12)
[2019-04-02] MEDS: cloNIDine HCL 0.1 MG TAB PO SCH ×2 (08:45→21:15)
[2019-04-02] MEDS: MULTIVITAMINS, THERA 1 EACH TAB PO SCH (08:45)
[2019-04-02] MEDS: lamoTRIgine 100 MG TAB PO SCH (08:45)
[2019-04-02] MEDS: amLODIPine 5 MG TAB PO SCH (08:46)
[2019-04-02] MEDS: TOPIRAMATE 25 MG TAB PO SCH ×2 (08:46→21:12)
[2019-04-02] MEDS: LISINOPRIL 20 MG TAB PO SCH (08:46)
[2019-04-02] MEDS: FOLIC ACID 1 MG TAB PO SCH (08:46)
[2019-04-02] MEDS: GABAPENTIN 300 MG CAP PO SCH ×3 (08:46→21:13)
[2019-04-02] MEDS: NALTREXONE HCL 50 MG TAB PO SCH (08:46)
[2019-04-02] MEDS: MONTELUKAST 10 MG TAB PO SCH (08:46)
[2019-04-02] MEDS: FLUTICASONE 50MCG/SPRAY NASAL 16GM EA NOSTRIL SCH (08:50)
[2019-04-02] MEDS: ALBUTEROL INHALER 60 PUFF/8 GM INHALER INHALATION PRN ×2 (08:51→16:08)
--- NOTE | 2019-04-02 12:53 | PN ---
PROGRESS NOTE DATE OF SERVICE: 04/02/2019. CHIEF COMPLAINT: The patient was depressed. She had relapsed to drinking and has long-term severe problems with alcohol. INTERVAL HISTORY: The patient has been doing fair. She had a quiet evening last night. She comes out in the day area. She interacts with others. She attended groups yesterday. She sleeps well at night. This morning she has been up. She attended group. She comes out in the day area. She does some therapeutic walking to help with alcohol with acute alcohol withdrawal issues. She has had contact with her who is in [facility] on a ventilator. He has been on the ventilator for a month. He has emphysema. He has apparent long history of cigarette smoking. The patient states that she has been worrying about what plan she will need to make with her . She said the 2 of them had discussed the question of his being on a long-term ventilator. She says that she may need to make a decision to take him off the ventilator, which was his desired plan. She also notes that when she is discharged, she has some necessary home duty. She has a dog at home that neighbors have been taking care of. She says there is a number of home projects that she has to attend to. She understands that she will be needing to go to drug court. She notes that she has been under court order relating to her alcohol dependence. He acknowledges that she has been drinking on a weekly to every other week basis over the last year and would drink about a half a pint at a time when she did drink. She had not had a period of more extended drinking until the middle of March when she relapsed into some more significant use. She says that her therapist at [facility] was aware that she had been drinking on a regular basis throughout the last year. She is not certain whether or not the court had been notified of this. She states that about a year and a half ago, she spent 10 days in intermediate from relapsed to drinking while she was under court order. She says that about 3 months ago she had her regular quarterly court hearing and apparently at that time, no issues were presented regarding her drinking. She is due for another routine court hearing soon, though she is uncertain what to anticipate given that she has been actively drinking and has been hospitalized. She has not had significant withdrawal issues. Vital signs have been stable. She is being tapered off of Ativan. She tolerates psychotropic medications. NOTES FROM [facility]: On the patients 01/23/2019 appointment at [facility], Dr Calvo documented that the patients "last binge occurred approximately 2 weeks ago when she was drinking half pint of liquor per day. Her last drink was January 10, 2019." MENTAL STATUS: Patient gave fair eye contact. Psychomotor activity was slowed. Speech was monotone and soft she answered questions with direct responses. She said a little spontaneously. Her affect was anxious. Her mood depressed. She was moderately distressed. She was tearful as she talked about issues with her . There was no indication of thought disorder. Cognition was clear. ASSESSMENT: I will continue current diagnosis and treatment plan. It is noteworthy that the patient has had regular use of alcohol over the last year in spite of her being under a court order relating to substance dependence. It is not clear whether or not court had been notified in regards to her continued drinking. It is noteworthy that she has very poor insight regarding her alcohol use. She has not been able to identify any motivating factors to stop drinking. She acknowledges that even in the face of risk of going to intermediate, she does not stop drinking. As noted before, in the face of her 's life-threatening illness, that has not been a motivation to stop drinking. She also was clear about the idea that she would not take Antabuse and she is confronted with the idea that she was willing to risk going to intermediate to continue to drink but not is not willing to take Antabuse on a daily basis to stop drinking. She is not able to rationally weigh that issue. We will continue to focus on stabilization discharge planning. MMARIL / GEREMIASN: [id number] / KOBY
--- NOTE | 2019-04-02 12:53 | HP ---
HISTORY AND PHYSICAL ADDENDUM: DATE OF SERVICE: 03/29/2019 HISTORY OF PRESENTING ILLNESS (the start of the History should read as follows) The patient has a severe history of alcohol dependence for over 25 years. Current records state back to April 2014, with the patient having over 25 hospitalizations in this facility for psychiatric and substance abuse problems. MMODL / GEREMIASN: [id number] / MTDD
[2019-04-02] MEDS: traZODone HCL 50 MG TAB PO SCH (21:12)
[2019-04-02] MEDS: ESCITALOPRAM 20 MG TAB PO SCH (21:13)
[2019-04-02] MEDS: LORazepam 0.5 MG TAB PO SCH (21:15)
[2019-04-03] MEDS: LEVOTHYROXINE 100 MCG TAB PO SCH (06:04)
[2019-04-03 06:06] VITALS: RESP 16; TEMP 98.1
[2019-04-03] MEDS: ALBUTEROL INHALER 60 PUFF/8 GM INHALER INHALATION PRN (06:36)
[2019-04-03] MEDS: ARIPiprazole 5 MG TAB PO SCH (07:53)
[2019-04-03] MEDS: PANTOPRAZOLE 40 MG TABLET PO SCH (07:53)
[2019-04-03] MEDS: MONTELUKAST 10 MG TAB PO SCH (08:25)
[2019-04-03] MEDS: GABAPENTIN 300 MG CAP PO SCH ×2 (08:25→15:38)
[2019-04-03] MEDS: TOPIRAMATE 25 MG TAB PO SCH (08:25)
[2019-04-03] MEDS: MULTIVITAMINS, THERA 1 EACH TAB PO SCH (08:25)
[2019-04-03] MEDS: AMOXIC-POT CLAV 500-125 MG 1 EACH TAB PO SCH (08:26)
[2019-04-03] MEDS: NALTREXONE HCL 50 MG TAB PO SCH (08:26)
[2019-04-03] MEDS: FOLIC ACID 1 MG TAB PO SCH (08:26)
[2019-04-03] MEDS: THIAMINE 100 MG TAB PO SCH (08:26)
[2019-04-03] MEDS: FLUTICASONE 50MCG/SPRAY NASAL 16GM EA NOSTRIL SCH (08:27)
[2019-04-03] MEDS: cloNIDine HCL 0.1 MG TAB PO SCH (08:27)
[2019-04-03] MEDS: lamoTRIgine 100 MG TAB PO SCH (08:27)
[2019-04-03] MEDS: LISINOPRIL 20 MG TAB PO SCH (08:27)
[2019-04-03] MEDS: ACETAMINOPHEN TAB 325 MG TAB PO PRN (08:29)
[2019-04-03] MEDS: amLODIPine 5 MG TAB PO SCH (09:41)
--- NOTE | 2019-04-03 11:46 | P.DS ---
Providers Date of admission: 03/29/19 12:50 Expected date of discharge: 04/03/19 Attending physician: Ben Moran Consults: 03/29/19 12:55 Consult Physician Routine Consulting Provider: Karan Huitron Consult Reason/Comments: history and physical Do you want consulting provider notified?: Yes 03/31/19 15:40 Consult Physician Routine Consulting Provider: Karan Huitron Consult Reason/Comments: cough, sinus pain, history of chronic bronchitis Do you want consulting provider notified?: Yes Primary care physician: Karan Huitron - Discharge Diagnosis(es) (1) Major depressive disorder, recurrent This is a 58-year-old female lives with her . She was admitted through the emergency room. Chief complaint, the patient was depressed she had relapsed to drinking has long history of severe problems with alcohol.. History of present illness the patient has a severe history alcohol dependence since April 2014. The patient has had over 25 hospitalizations in this facility for psychiatric substance abuse problem. See previous medical record. She relapsed into drinking essentially the day she got out of the program and returned home. She has had improvement in her drinking problems more recently. She noted that that her drinking habitat still has been uncontrollable. She had a period of 3 weeks of sobriety up until the middle of March and then relapsed to drinking alcohol again. She states that she obtains her alcohol by walking 1 [address] to local liquor store. Assessment: This is a 58-year-old female is diagnosed with alcohol dependency continuous and major depressive disorder severe in nature there are some current stress factors in regard to her husbands precarious health situation. She says that she has had a very supportive program to main sobriety as well as her support treatment and out of depression. She has difficulty with the issue that she continues to drink on a limited basis during periods that she is more stable in regards to substance use issues. Diagnosis DSM-V is some mixture of biopsychosocial which includes major depressive disorder chronic and recurrent in nature with acute exacerbation of r elapse of alcohol to use disorder severe, intermixed with thyroid cancer with a history of thyroidectomy, hypertension, sick sinus syndrome and history of mild intermittent asthma. Plan: Patient was admitted for comprehensive medical psychiatric psychosocial history. Will engage patient in individual and group therapies which she's done throughout her hospitalization. Increased her Lamictal to 200 mg a day and Abilify along with Lexapro until. She also be started on ReVia 50 mg and trazodone 100 mg at bedtime and she'll be placed on 15 minute checks usual protocol for the mental health unit [address]. Current Visit: No Status: Acute Priority: High Hospital Course: She was admitted on a formal voluntary and was evaluated by medicine psychiatry nursing staff family welfare social work professor and occupational therapy. She was placed on 15 minute checks throughout her stay at the hospital. She was detoxed and also placed on psychiatric medications for stabilization while she was on the unit. Her medication list is listed below. Mental status examination at the time of discharge 04/03/2019 11:44 AM: The patient presents alert, pleasant, and cooperative. There calmly seated without any agitated behavior. [She] reports that [her] mood is good. Affect is congruent and euthymic. [She] deny having any suicidal or homicidal ideation intent or plan. [She] denies any auditory or visual hallucinations. There is no evidence of any delusional thought content. [Her] thought process is linear and goal-directed. [Her] speech is fluent and nonpressured. [Her] memory and concentration is grossly intact for the purposes of this session. She has an appointment on April 06 have her Vivitrol injection and discussed with her 90 meetings in 90 days which be a combination for AA meetings a week and 3 alevism meetings with a sponsor. Patient Condition at Discharge: Stable Plan - Discharge Summary New Discharge Prescriptions: New ARIPiprazole [Abilify] 7.5 mg PO BID@0700,1900 30 Days #90 tab Amoxic-Pot Clav 500-125 mg [Augmentin 500-125 mg] 1 each PO BID 10 Days #20 tab cloNIDine HCL [Catapres] 0.1 mg PO BID 30 Days #60 tab traZODone HCL [Desyrel] 50 mg PO HS 30 Days #30 tab Pantoprazole [Protonix] 40 mg PO AC-BRKFST tablet. Continue Multivitamins, Thera [Multivitamin (formulary)] 1 tab PO DAILY Folic Acid 1 mg PO DAILY #30 Montelukast [Singulair] 10 mg PO DAILY #30 Fluticasone Nasal [place] [Flonase Nasal [place]] 2 spr EA NOSTRIL DAILY Vivitrol 380mg Er 380 mg IM Q28D Thiamine [Vitamin B-1] 100 mg PO DAILY lamoTRIgine [LaMICtal] 200 mg PO DAILY 30 Days #30 tablet Escitalopram [Lexapro] 20 mg PO HS #30 tab Gabapentin [Neurontin] 300 mg PO TID 30 Days #90 capsule amLODIPine [Norvasc] 5 mg PO DAILY 30 Days #30 tab Naltrexone HCl [Revia] 50 mg PO DAILY 30 Days #30 tab Levothyroxine Sodium [Synthroid] 200 mcg PO DAILY 30 Days #30 tablet Topiramate [Topamax] 50 mg PO BID #120 tab Albuterol Inhaler [Ventolin Hfa Inhaler] 1 - 2 puff INHALATION RT-Q6H PRN 30 Days #1 puff PRN Reason: Shortness Of Breath Lisinopril [Zestril] 20 mg PO DAILY 30 Days #30 tab Discontinued traZODone HCL [Desyrel] 100 mg PO HS Ibuprofen [Motrin Ib] 200 mg PO Q6H PRN PRN Reason: Pain ARIPiprazole [Abilify] 10 mg PO HS Discharge Medication List Multivitamins, Thera [Multivitamin (formulary)] 1 tab PO DAILY 05/31/17 [History] Folic Acid 1 mg PO DAILY #30 06/02/17 [Rx] Montelukast [Singulair] 10 mg PO DAILY #30 06/02/17 [Rx] Fluticasone Nasal [place] [Flonase Nasal [place]] 2 spr EA NOSTRIL DAILY 04/10/18 [History] Thiamine [Vitamin B-1] 100 mg PO DAILY 03/28/19 [History] Vivitrol 380mg Er 380 mg IM Q28D 03/28/19 [History] ARIPiprazole [Abilify] 7.5 mg PO BID@0700,1900 30 Days #90 tab 04/03/19 [Rx] Albuterol Inhaler [Ventolin Hfa Inhaler] 1 - 2 puff INHALATION RT-Q6H PRN 30 Days #1 puff 04/03/19 [Rx] Amoxic-Pot Clav 500-125 mg [Augmentin 500-125 mg] 1 each PO BID 10 Days #20 tab 04/03/19 [Rx] Escitalopram [Lexapro] 20 mg PO HS #30 tab 04/03/19 [Rx] Gabapentin [Neurontin] 300 mg PO TID 30 Days #90 capsule 04/03/19 [Rx] Levothyroxine Sodium [Synthroid] 200 mcg PO DAILY 30 Days #30 tablet 04/03/19 [Rx] Lisinopril [Zestril] 20 mg PO DAILY 30 Days #30 tab 04/03/19 [Rx] Naltrexone HCl [Revia] 50 mg PO DAILY 30 Days #30 tab 04/03/19 [Rx] Pantoprazole [Protonix] 40 mg PO AC-BRKFST tablet. 04/03/19 [Rx] Topiramate [Topamax] 50 mg PO BID #120 tab 04/03/19 [Rx] amLODIPine [Norvasc] 5 mg PO DAILY 30 Days #30 tab 04/03/19 [Rx] cloNIDine HCL [Catapres] 0.1 mg PO BID 30 Days #60 tab 04/03/19 [Rx] lamoTRIgine [LaMICtal] 200 mg PO DAILY 30 Days #30 tablet 04/03/19 [Rx] traZODone HCL [Desyrel] 50 mg PO HS 30 Days #30 tab 04/03/19 [Rx] Follow up Appointment(s)/Referral(s): Karan Huitron MD [Primary Care Provider] - 1-2 days Discharge Disposition: HOME SELF-CARE
[2019-04-03 13:31] VITALS: BP 111/69; PULSE 73
== END 2019-04-03 16:05 | disposition home or self-care (01) | DRG 885 ==
LOC: EC 20:13 → 3MHU 03-29 12:50
PROVIDERS: ADMIT Psychiatry & Neurology Psychiatry; ATTEND Psychiatry & Neurology Psychiatry
DX: F33.9 Major depressive disorder, recurrent, unspecified (principal); R45.851 Suicidal ideations; F10.239 Alcohol dependence with withdrawal, unspecified; I49.5 Sick sinus syndrome; J43.9 Emphysema, unspecified; Y90.7 Blood alcohol level of 200-239 mg/100 ml; F41.9 Anxiety disorder, unspecified; E86.0 Dehydration; J45.20 Mild intermittent asthma, uncomplicated; J31.0 Chronic rhinitis; J06.9 Acute upper respiratory infection, unspecified; I10 Essential (primary) hypertension; E89.0 Postprocedural hypothyroidism; L40.9 Psoriasis, unspecified; Z91.5 Personal history of self-harm; Z79.890 Hormone replacement therapy; Z79.899 Other long term (current) drug therapy; Z87.81 Personal history of (healed) traumatic fracture; Z85.850 Personal history of malignant neoplasm of thyroid; Z88.1 Allergy status to other antibiotic agents; Z88.8 Allergy status to other drugs, medicaments and biological substances; Z80.0 Family history of malignant neoplasm of digestive organs; Z81.1 Family history of alcohol abuse and dependence; Z83.79 Family history of other diseases of the digestive system; Z80.3 Family history of malignant neoplasm of breast
CPT/HCPCS: 36415; 80053; 80306; 80320; 81001; 81003; 82075; 82150; 83036; 83690; 83735; 84100; 84443; 85025; 87502; 93005; 96361; 96365; 96366; 96375; 96376; 99285

== ENCOUNTER 2019-04-19 16:04 | Emergency (ER) | payer OTHER ==
[2019-04-19] MEDS ORDERED: LORazepam 2 MG/ML INJ IV STA (17:28)
[2019-04-19] MEDS ORDERED: SODIUM CHLORIDE 0.9% 1,000 ML IV ONE (17:29)
[2019-04-19] MEDS ORDERED: ONDANSETRON 4 MG/2 ML VIAL IVP STA (17:36)
--- NOTE | 2019-04-19 17:36 | ED ---
General Adult HPI - General Chief complaint: Alcohol Stated complaint: alcohol withdrawal Time Seen by Provider: 04/19/19 16:10 Source: patient, RN notes reviewed Mode of arrival: ambulatory Limitations: no limitations - History of Present Illness Initial comments: This is a 58-year-old female who is an alcoholic. Patient states she is on them off with sobriety. Patient states the last month she's been drinking a pint of liquor every day because she's been dealing with the stress of her sick . Patient states her yesterday and she is staying with her [id number] and out of respect for her she has not drink anything today. Patient states she is now withdrawing and vomiting and can't keep anything down and she is looking for something for her nausea and some fluids so that she can prevent herself from getting dehydrated. Patient also has the shakes. Patient denies any difficulty breathing shortness of breath per patient denies any chest pain. Patient denies any palpitations per patient denies headache patient nikki es numbness weakness. Patient denies any abdominal pain but she still remains nauseated. - Related Data Home Medications Medication Instructions Recorded Confirmed Multivitamins, Thera [Multivitamin 1 tab PO DAILY 05/31/17 03/28/19 (formulary)] Fluticasone Nasal [place] [Flonase 2 spr EA NOSTRIL DAILY 04/10/18 03/28/19 Nasal [place]] Thiamine [Vitamin B-1] 100 mg PO DAILY 03/28/19 03/28/19 Vivitrol 380mg Er 380 mg IM Q28D 03/28/19 03/28/19 Previous Rx's Medication Instructions Recorded Folic Acid 1 mg PO DAILY #30 06/02/17 Montelukast [Singulair] 10 mg PO DAILY #30 06/02/17 ARIPiprazole [Abilify] 7.5 mg PO BID@0700,1900 30 Days 04/03/19 #90 tab Albuterol Inhaler [Ventolin Hfa 1 - 2 puff INHALATION RT-Q6H PRN 04/03/19 Inhaler] 30 Days #1 puff Amoxic-Pot Clav 500-125 mg 1 each PO BID 10 Days #20 tab 04/03/19 [Augmentin 500-125 mg] Escitalopram [Lexapro] 20 mg PO HS #30 tab 04/03/19 Gabapentin [Neurontin] 300 mg PO TID 30 Days #90 capsule 04/03/19 Levothyroxine Sodium [Synthroid] 200 mcg PO DAILY 30 Days #30 tablet 04/03/19 Lisinopril [Zestril] 20 mg PO DAILY 30 Days #30 tab 04/03/19 Naltrexone HCl [Revia] 50 mg PO DAILY 30 Days #30 tab 04/03/19 Pantoprazole [Protonix] 40 mg PO AC-BRKFST tablet. 04/03/19 Topiramate [Topamax] 50 mg PO BID #120 tab 04/03/19 amLODIPine [Norvasc] 5 mg PO DAILY 30 Days #30 tab 04/03/19 cloNIDine HCL [Catapres] 0.1 mg PO BID 30 Days #60 tab 04/03/19 lamoTRIgine [LaMICtal] 200 mg PO DAILY 30 Days #30 tablet 04/03/19 traZODone HCL [Desyrel] 50 mg PO HS 30 Days #30 tab 04/03/19 Ondansetron Odt [Zofran Odt] 4 mg PO Q8HR PRN #10 04/19/19 Allergies Allergy/AdvReac Type Severity Reaction Status Date / Time clindamycin Allergy Unknown Rash/Hives Verified 04/19/19 16:11 acetylcysteine Allergy Anaphylaxis Verified 04/19/19 16:11 [From Mucomyst] chlordiazepoxide HCl AdvReac Hallucinati Verified 04/19/19 16:11 [From Librium] ons citalopram [From Celexa] AdvReac Hallucinati Verified 04/19/19 16:11 ons diphenhydramine HCl AdvReac Rapid Verified 04/19/19 16:11 [From Benadryl] Heart Rate Review of Systems ROS Statement: Those systems with pertinent positive or pertinent negative responses have been documented in the HPI. ROS Other: All systems not noted in ROS Statement are negative. Past Medical History Past Medical History: Asthma, Cancer, Hypertension, Thyroid Disorder Additional Past Medical History / Comment(s): History of goiter status post thyroidectomy, questionable history of thyroid cancer although this is not clear, bipolar disorder, depression, history of suicidal ideations, history of drug overdose, alcoholism, seasonal rhinitis, psoriasis, breast cysts, history of broken toes in the right foot, hypertension, History of Any Multi-Drug Resistant Organisms: None Reported Past Surgical History: No Surgical Hx Reported Additional Past Surgical History / Comment(s): Thyroidectomy 1999, SKIN NEVI REMOVED Past Anesthesia/Blood Transfusion Reactions: Previous Problems w/ Anesthesia, Postoperative Nausea & Vomiting (PONV) Additional Past Anesthesia/Blood Transfusion Reaction / Comment(s): Pt lives with in their home. They have been together 12 yrs. Pt is normally inde pendent. Pt is an alcoholic. She is feeling more depressed lately and ashamed of her alcoholism. PT STATED SHE IS A BINGE DRINKER AND IS A BLACK OUT DRINKER,THINKS SHE STARTED DRINKING 4-5 DAYS AGO 3 PINTS A DAY AND WHEN COMING DOWN DRANK SUAVE HAIR SPRAY( does not allow alcohol in the home so pt has drinks hand estate and trust tax principal or hair spray per her ). Pt no longer has a drivers license- she has had 2 DUI's. 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 She is seen at [facility] by Dr. Baez and has a councelor-NICO. She has alot of quaker friends. drives her to her appts. Past Psychological History: Anxiety, Bipolar, Depression Smoking Status: Never smoker Past Alcohol Use History: Abuse, Daily, Heavy Past Drug Use History: Unable to Obtain - Past Family History Father Family Medical History: Cancer Additional Family Medical History / Comment(s): Father at age 64 of esophageal cancer. Father was an alcoholic and had cirrhosis of the liver. Mother Family Medical History: Cancer Additional Family Medical History / Comment(s): Mother of breast cancer at age 42yrs. General Exam - General Exam Comments Initial Comments: GENERAL: Patient is well-developed and well-nourished. Patient is nontoxic and well- hydrated and is in mild distress. Patient is tremulous ENT: Neck is soft and supple. No significant lymphadenopathy is noted. Oropharynx is clear. Moist mucous membranes. Neck has full range of motion without elicit ing any pain. EYES: The sclera were anicteric and conjunctiva were pink and moist. Extraocular m ovements were intact and pupils were equal round and reactive to light. Eyelids were unremarkable. PULMONARY: Unlabored respirations. Good breath sounds bilaterally. No audible rales rhonchi or wheezing was noted. CARDIOVASCULAR: There is a regular rate and rhythm without any murmurs gallops or rubs. ABDOMEN: Soft and nontender with normal bowel sounds. SKIN: Skin is clear with no lesions or rashes and otherwise unremarkable. NEUROLOGIC: Patient is alert and oriented x3. Cranial nerves II through XII are grossly intact. Motor and sensory are also intact. Normal speech, volume and content. Symmetrical smile. MUSCULOSKELETAL: Normal extremities with adequate strength and full range of motion. No lower extremity swelling or edema. No calf tenderness. LYMPHATICS: No significant lymphadenopathy is noted PSYCHIATRIC: Normal psychiatric evaluation. Limitations: no limitations Course Vital Signs 04/19/19 04/19/19 16:08 17:49 Temperature 99.2 F 97.4 F L Pulse Rate 94 89 Respiratory 18 16 Rate Blood Pressure 164/94 145/90 O2 Sat by Pulse 96 95 Oximetry Medical Decision Making - Medical Decision Making Patient received Zofran and a liter of fluid and magnesium and 1 of Ativan in the emergency department. - Lab Data Result diagrams: 04/19/19 17:20 04/19/19 17:20 Lab Results 04/19/19 04/19/19 Range/Units 17:20 17:20 WBC 5.6 (3.8-10.6) k/uL RBC 4.32 (3.80-5.40) m/uL Hgb 13.6 (11.4-16.0) gm/dL Hct 41.0 (34.0-46.0) % MCV 94.9 (80.0-100.0) fL MCH 31.5 (25.0-35.0) pg MCHC 33.2 (31.0-37.0) g/dL RDW 15.2 (11.5-15.5) % Plt Count 191 (150-450) k/uL Neutrophils % 85 % Lymphocytes % 8 % Monocytes % 5 % Eosinophils % 0 % Basophils % 0 % Neutrophils # 4.8 (1.3-7.7) k/uL Lymphocytes # 0.5 L (1.0-4.8) k/uL Monocytes # 0.3 (0-1.0) k/uL Eosinophils # 0.0 (0-0.7) k/uL Basophils # 0.0 (0-0.2) k/uL Sodium 140 (137-145) mmol/L Potassium 4.5 (3.5-5.1) mmol/L Chloride 101 (98-107) mmol/L Carbon Dioxide 24 (22-30) mmol/L Anion Gap 15 mmol/L BUN 15 (7-17) mg/dL Creatinine 0.59 (0.52-1.04) mg/dL Est GFR (CKD-EPI)AfAm >90 (>60 ml/min/1.73 sqM) Est GFR (CKD-EPI)NonAf >90 (>60 ml/min/1.73 sqM) Glucose 112 H (74-99) mg/dL Calcium 10.0 (8.4-10.2) mg/dL Magnesium 1.5 L (1.6-2.3) mg/dL Total Bilirubin 1.2 (0.2-1.3) mg/dL AST 73 H (14-36) U/L ALT 87 H (9-52) U/L Alkaline Phosphatase 60 (38-126) U/L Total Protein 8.0 (6.3-8.2) g/dL Albumin 4.9 (3.5-5.0) g/dL Disposition Clinical Impression: Alcohol withdrawal, Alcoholism /alcohol abuse Disposition: HOME SELF-CARE Condition: Good Instructions (If sedation given, give patient instructions): Alcohol Withdrawal (ED) Prescriptions: Ondansetron Odt [Zofran Odt] 4 mg PO Q8HR PRN #10 PRN Reason: Nausea And Vomiting Is patient prescribed a controlled substance at d/c from ED?: No Referrals: Karan Huitron MD [Primary Care Provider] - 1-2 days Time of Disposition: 18:04
[2019-04-19 17:43] LABS: Basophils % (A) 0 %; Eosinophils % (A) 0 %; HGB 13.6 gm/dL (11.4-16.0); Lymphocytes # (A) 0.5 k/uL (1.0-4.8); Lymphocytes % (A) 8 %; MCH 31.5 pg (25.0-35.0); MCHC 33.2 g/dL (31.0-37.0); MCV 94.9 fL (80.0-100.0); Monocytes # (A) 0.3 k/uL (0-1.0); Monocytes % (A) 5 %; Neutrophils # (A) 4.8 k/uL (1.3-7.7); Neutrophils % (A) 85 %; Platelet Count 191 k/uL (150-450); RBC 4.32 m/uL (3.80-5.40); RDW 15.2 % (11.5-15.5); WBC 5.6 k/uL (3.8-10.6)
[2019-04-19 17:52] LABS: ALT 87 U/L (9-52); AST 73 U/L (14-36); African American GFR (CKD) >90 (>60 ml/min/1.73 sqM); Albumin 4.9 g/dL (3.5-5.0); Alkaline Phosphatase 60 U/L (38-126); Anion Gap 15 mmol/L; Blood Urea Nitrogen 15 mg/dL (7-17); Carbon Dioxide 24 mmol/L (22-30); Chloride 101 mmol/L (98-107); Glucose 112 mg/dL (74-99); Magnesium 1.5 mg/dL (1.6-2.3); Potassium 4.5 mmol/L (3.5-5.1); Sodium 140 mmol/L (137-145); Total Bilirubin 1.2 mg/dL (0.2-1.3)
[2019-04-19 17:53] VITALS: RESP 16; TEMP 97.4
[2019-04-19] MEDS ORDERED: MAGNESIUM SULFATE-D5W PMX 1 GM in DEXTROSE/WATER 1 100ML.BAG IVPB ONE (17:54)
[2019-04-19 19:39] VITALS: BP 136/92; PULSE 92
== END 2019-04-19 19:42 | disposition home or self-care (01) ==
LOC: EC 16:04
DX: F10.239 Alcohol dependence with withdrawal, unspecified (principal); J45.909 Unspecified asthma, uncomplicated; Z79.51 Long term (current) use of inhaled steroids; Z88.1 Allergy status to other antibiotic agents; Z88.8 Allergy status to other drugs, medicaments and biological substances; Z85.850 Personal history of malignant neoplasm of thyroid; Z90.89 Acquired absence of other organs
CPT/HCPCS: 36415; 80053; 83735; 85025; 99284; 96365; 96375 ×2; 96361; J2060; J2405; J3475

== ENCOUNTER 2019-05-13 16:22 | Observation (INO) | payer OTHER ==
[2019-05-13] MEDS ORDERED: SODIUM CHLORIDE 0.9% 500 ML 500 ML IV ONE (16:52)
[2019-05-13] MEDS ORDERED: THIAMINE 100 MG/ML 2 ML VIAL IM STA (16:52)
[2019-05-13] MEDS ORDERED: LORazepam 2 MG/ML INJ IV PRN ×2 (16:52)
[2019-05-13 17:04] LABS: Appearance,Urine Clear (Clear); Bilirubin,Urine Negative (Negative); Blood,Urine Negative (Negative); Color,Urine Yellow; Glucose,Urine (UA) Negative (Negative); Hyaline Casts,Urine 1 /lpf (0-2); Ketones,Urine Trace (Negative); Leukocyte Esterase,Urine Small (Negative); Mucus,Urine Rare /hpf; Nitrite,Urine Negative (Negative); Protein,Urine Negative (Negative); RBC,Urine 1 /hpf (0-5); Specific Gravity,Urine 1.013 (1.001-1.035); Squamous Epithelial Cell,Urine 4 /hpf (0-4); Urobilinogen,Urine <2.0 mg/dL (<2.0); WBC,Urine 8 /hpf (0-5)
[2019-05-13 17:18] LABS: Amphetamine Screen,Urine Not Detected (NotDetected); Barbiturate Screen,Urine Not Detected (NotDetected); Benzodiazepines Screen,Urine Not Detected (NotDetected); Cocaine Screen,Urine Not Detected (NotDetected); Methadone Screen, Urine Not Detected (NotDetected); Opiate Screen,Urine Not Detected (NotDetected); Oxycodone Screen, Urine Not Detected (NotDetected); Phencyclidine Screen,Urine Not Detected (NotDetected); Tricyclic Antidepressant,Urine Not Detected (NotDetected); Urn Cannabinoid Scrn Not Detected (NotDetected)
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
[2019-05-13] MEDS ORDERED: NALOXONE 0.4 MG/ML 1 ML VIAL IV PRN (18:02)
[2019-05-13] MEDS: SODIUM CHLORIDE 0.9% 1,000 ML IV SCH (19:00)
[2019-05-13] MEDS: THIAMINE 100 MG TAB PO SCH (19:05)
[2019-05-13] MEDS ORDERED: ALBUTEROL NEBULIZED 2.5 MG/3 ML INHALATION PRN (21:29)
[2019-05-13] MEDS ORDERED: FLUTICASONE 50MCG/SPRAY NASAL 16GM EA NOSTRIL PRN (21:29)
[2019-05-13] MEDS ORDERED: VIVITROL 380 MG IM SCH (21:30)
[2019-05-13] MEDS: ESCITALOPRAM 20 MG TAB PO SCH (22:10)
[2019-05-13] MEDS: GABAPENTIN 300 MG CAP PO SCH (22:10)
[2019-05-13] MEDS: TOPIRAMATE 25 MG TAB PO SCH (22:10)
[2019-05-13] MEDS: traZODone HCL 100 MG TAB PO SCH (22:10)
[2019-05-14] MEDS: LORazepam 2 MG/ML INJ IV PRN ×2 (06:30→07:56)
[2019-05-14] MEDS: ONDANSETRON 4 MG/2 ML VIAL IVP PRN ×2 (07:44→17:25)
[2019-05-14] MEDS: THIAMINE 100 MG TAB PO SCH ×2 (07:45→19:11)
[2019-05-14] MEDS: LEVOTHYROXINE 100 MCG TAB PO SCH (07:45)
[2019-05-14] MEDS ORDERED: NALTREXONE HCL 50 MG TAB PO SCH ×2 (09:00)
[2019-05-14] MEDS ORDERED: MONTELUKAST 10 MG TAB PO SCH (09:00)
[2019-05-14] MEDS ORDERED: THIAMINE 100 MG TAB PO SCH (09:00)
[2019-05-14] MEDS: amLODIPine 5 MG TAB PO SCH (10:07)
[2019-05-14] MEDS: GABAPENTIN 300 MG CAP PO SCH ×3 (10:07→20:34)
[2019-05-14] MEDS: MULTIVITAMINS, THERA 1 EACH TAB PO SCH (10:07)
[2019-05-14] MEDS: ARIPiprazole 10 MG TAB PO SCH (10:07)
[2019-05-14] MEDS: lamoTRIgine 100 MG TAB PO SCH (10:07)
[2019-05-14] MEDS: TOPIRAMATE 25 MG TAB PO SCH ×2 (10:07→20:34)
[2019-05-14] MEDS: FOLIC ACID 1 MG TAB PO SCH (10:08)
[2019-05-14] MEDS: LISINOPRIL 20 MG TAB PO SCH (10:08)
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
[2019-05-14 12:59] LABS: Basophils % (A) 0 %; Eosinophils % (A) 1 %; HCT 38.6 % (34.0-46.0); HGB 12.8 gm/dL (11.4-16.0); Lymphocytes # (A) 0.7 k/uL (1.0-4.8); Lymphocytes % (A) 19 %; MCH 31.7 pg (25.0-35.0); MCHC 33.2 g/dL (31.0-37.0); MCV 95.3 fL (80.0-100.0); Mean Platelet Volume 8.7; Monocytes # (A) 0.2 k/uL (0-1.0); Monocytes % (A) 6 %; Neutrophils # (A) 2.9 k/uL (1.3-7.7); Neutrophils % (A) 73 %; Platelet Count 164 k/uL (150-450); RBC 4.05 m/uL (3.80-5.40); RDW 15.2 % (11.5-15.5)
[2019-05-14 13:17] LABS: ALT 65 U/L (9-52); AST 57 U/L (14-36); African American GFR (CKD) >90 (>60 ml/min/1.73 sqM); Alkaline Phosphatase 46 U/L (38-126); Anion Gap 11 mmol/L; Blood Urea Nitrogen 15 mg/dL (7-17); Calcium 9.2 mg/dL (8.4-10.2); Carbon Dioxide 26 mmol/L (22-30); Chloride 104 mmol/L (98-107); Glucose 94 mg/dL (74-99); Potassium 4.4 mmol/L (3.5-5.1); Sodium 141 mmol/L (137-145); Total Bilirubin 0.9 mg/dL (0.2-1.3); Total Protein 6.8 g/dL (6.3-8.2)
--- NOTE | 2019-05-14 16:30 | P.CN ---
Psychiatric Consult - . Consult date: 05/14/19 Consult:: 05/14/19 16:16 Identification: Patient is a 58-year-old female who states that she came to the emergency room because she couldn't stop drinking Reason for Consult: Evaluate for suicidal ideation when sober History of Present Illness: Patient's chart was reviewed and the patient was seen and interviewed in her room no family members were present. Patient states to me that she had been doing well until her became ill in February. She states that she started using alcohol again probably a half a pint every few days and was admitted here in March of that year due to that. She states that he was in the hospital for at least 6 weeks with multiple medical problems that began with a collapsed lung but could not be reinflated, he had myocardial infarctions renal failure, was transferred to [facility] and on April 18. Patient states that she stayed with her [id number] for 2 weeks after the until the [facility] service on May 05. She states that prior to that while she was visiting him in the hospital she was probably using a half a pint every few days. She states that she had been contacting her sponsor during this period of time and states that she was going to [facility] that she is still on a court order for treatment. She states that she was doing fairly well until she returned home after the [facility] service and began using a pint a day. She states she began to feel physically ill was unable to keep any food down, wasn't taking care of herself and so came to the emergency room for help. She states that she is been compliant with her medications and a prior to her beginning to use alcohol most recently they were working well. She had been eating and sleeping, was not feeling depressed and physically was feeling better. Patient states that she currently is not suicidal, is not feeling depressed but is grieving the loss of her . Patient states that she'll need to return to work because she started to be able to afford to live at their home without his Social Security penitentiary. Patient states that she has support from her lytlzy-yc-ofe, the muslim as well as her sponsor and states that she is been working with [facility] and they are offering to assist her in finding a job. Patient was here in March 2019 and she had been admitted in the past in 2016 and at that time at discharge she went to the [facility] where she stayed for 3 months and she states she then went to [facility] for 7 months for alcohol use. She states after her discharge from that program she returned home to live with her and attended programs at [facility] and was doing well until he was admitted to the hospital in February of this year. Patient states that her medications have been working well up until the time she began using alcohol and they have been more or less consistent. Past Psychiatric History: Patient has a long history of admissions related to alcohol use, as well as being diagnosed with bipolar type II disorder and she was here last in March 2019 and prior to that in 2016. See above for details regarding her rehab program in 2017. Patient is still under a court order she states and attends [facility] where she is taking Abilify 10 mg daily Lexapro 20 mg, Lamictal 200 mg trazodone 100 mg, Topamax 50 twice a day and Neurontin 300 mg 3 times a day. Past Medical/Surgical History: Patient has a history of asthma, hypertension she is status post thyroidectomy for cancer Family History: Patient states that on her maternal side alcohol use disorders, her father and brother both had alcohol use disorder. Patient's mother was diagnosed with depression and a paternal uncle completed suicide Social History: Patient was living with her who had been retired and they were supported on her pension and his Social Security. She was once before and and is currently a . She has no children. She states that she has not been working since 1999. Patient lives with her dog and finds that her muslim and ardldu-ii-lem are both supportive. Patient states that she is also going to be attending grief counseling at hospice with a neighbor Substance Use History: Patient has a long history of alcohol use and most recently has been using a pint a day and states that she was unable to stop once she returned home after the [facility] service for her on May 05. 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 Behavior: Patient did not exhibit any psychomotor agitation or retardation Speech/Language: Patient's speech was spontaneous of normal volume and rhythm and she was coherent Thought Process: Patient was goal-directed there is no evidence of loose association or flight of ideas Thought Content: Patient denied any auditory or visual hallucinations and no delusions or paranoid ideation were elicited. Patient states that she is grieving her , and started using alcohol to pint a day since the memorial on the in her return home and was unable to stop drinking. She states that she wasn't eating well and wasn't sleeping. Suicidal/Homicidal Ideation: Patient denies any current suicidal or homicidal ideation Sensorium/Cognition: Patient is alert and oriented to person, place, and time and her recent and remote memory are grossly intact Mood/Affect: Patient's mood is sad and her affect is appropriate to her mood Insight/Judgment: Patient's insight and judgment are fair Assessment: Patient has a long history of alcohol use, treatment for depressive symptoms and has been admitted multiple times in the past. She completed a 10 month rehab program in 2018 and had been doing well up until the time that her was admitted to the hospital. She began using alcohol again and was admitted here in March and states that after his and memorial service when she returned to their home she began drinking more heavily and could not stop. Patient states that she presented to the emergency room because she was feeling physically ill and was unable to stop using alcohol. Patient has been compliant with her treatment at [facility] and states that she still on a court order for treatment. She states that she's been using her sponsor, has a supportive [id number]-ts-dff as well as support at [facility]. Patient states that her medications were working well in controlling her symptoms of her bipolar disorder. Diagnosis: Alcohol use disorder, moderate; Bipolar type II disorder, currently in remission Plan: Patient is not currently suicidal and so will stop the suicide precautions, patient does not require transfer to an inpatient psychiatric unit for admission. Patient should be continued on her psychotropic medications as they have been prescribed. Patient should return to [facility] for follow-up care and was encouraged to call to get an earlier appointment. Patient was encouraged to use her support services including her [id number] and her sponsor. Patient was advised to avoid all alcohol and be compliant with her medications. Patient states that she will contact the mental health to make a crisis appointment, and she was encouraged to do so if she needs assistance with this please contact social work. Patient was also encouraged to follow-up with grief counseling with her neighbor at hospice. I will sign off the case if there are any further questions or concerns please and hesitate to contact 05/14/19 16:21 05/14/19 16:26 05/14/19 16:29
[2019-05-14] MEDS: SODIUM CHLORIDE 0.9% 1,000 ML IV SCH (19:06)
[2019-05-14] MEDS: traZODone HCL 100 MG TAB PO SCH (20:34)
[2019-05-14] MEDS: ESCITALOPRAM 20 MG TAB PO SCH (20:34)
[2019-05-15] MEDS: SODIUM CHLORIDE 0.9% 1,000 ML IV SCH (00:04)
[2019-05-15] MEDS: LEVOTHYROXINE 100 MCG TAB PO SCH (05:50)
[2019-05-15 07:37] VITALS: BP 135/85; TEMP 98.1
[2019-05-15] MEDS: THIAMINE 100 MG TAB PO SCH (08:11)
[2019-05-15] MEDS: amLODIPine 5 MG TAB PO SCH (08:11)
[2019-05-15] MEDS: ARIPiprazole 10 MG TAB PO SCH (08:12)
[2019-05-15] MEDS: FOLIC ACID 1 MG TAB PO SCH (08:12)
[2019-05-15] MEDS: GABAPENTIN 300 MG CAP PO SCH (08:13)
[2019-05-15] MEDS: lamoTRIgine 100 MG TAB PO SCH (08:14)
[2019-05-15] MEDS: LISINOPRIL 20 MG TAB PO SCH (08:15)
[2019-05-15] MEDS: MULTIVITAMINS, THERA 1 EACH TAB PO SCH (08:15)
[2019-05-15] MEDS: TOPIRAMATE 25 MG TAB PO SCH (08:17)
[2019-05-15 09:02] LABS: Basophils % (A) 1 %; Eosinophils # (A) 0.2 k/uL (0-0.7); Eosinophils % (A) 6 %; HGB 12.7 gm/dL (11.4-16.0); Lymphocytes # (A) 0.5 k/uL (1.0-4.8); Lymphocytes % (A) 18 %; MCH 31.5 pg (25.0-35.0); MCHC 32.6 g/dL (31.0-37.0); MCV 96.4 fL (80.0-100.0); Mean Platelet Volume 8.8; Monocytes # (A) 0.2 k/uL (0-1.0); Monocytes % (A) 7 %; Neutrophils # (A) 1.9 k/uL (1.3-7.7); Neutrophils % (A) 66 %; Platelet Count 139 k/uL (150-450); RBC 4.05 m/uL (3.80-5.40); RDW 14.9 % (11.5-15.5); WBC 2.9 k/uL (3.8-10.6)
[2019-05-15 09:13] LABS: ALT 58 U/L (9-52); AST 59 U/L (14-36); African American GFR (CKD) >90 (>60 ml/min/1.73 sqM); Alkaline Phosphatase 45 U/L (38-126); Anion Gap 9 mmol/L; Blood Urea Nitrogen 12 mg/dL (7-17); Calcium 9.3 mg/dL (8.4-10.2); Carbon Dioxide 24 mmol/L (22-30); Chloride 106 mmol/L (98-107); Glucose 118 mg/dL (74-99); Sodium 139 mmol/L (137-145); Total Protein 6.7 g/dL (6.3-8.2)
--- NOTE | 2019-05-15 10:04 | P.DS ---
Providers Date of admission: 05/15/19 08:08 Expected date of discharge: 05/15/19 Attending physician: Karan Huitron Consults: 05/13/19 18:02 Consult Physician Urgent Consulting Provider: Mary Anne Garcia Consult Reason/Comments: Once patient sober, evaluate for suicidal ideationspls Do you want consulting provider notified?: Already Contacted Primary care physician: Karan Tomy [facility] Course: Discharge diagnosis 1. Alcohol intoxication. Continue alcohol withdrawal protocol. Continue thiamine. Tremors have subsided. Patient has not required Ativan throughout night. Patient will be DC'd 3 days of Ativan. 2. Suicide ideation psychiatry services have been consulted patient in suicide precaution sitter is at bedside. Patient's recently . Patient was evaluated by psychiatry services. Per psychiatry patient is not currently suicidal. Patient does not require transfer to inpatient psych unit for this admission. Patient to continue on her psychotropic medications and follow-up with [facility]. 3. History of EtOH and binge drinking. Patient reports she has struggled with alcoholism for over 20 years, Patient does follow with [facility] 4. History of previous suicide attempts 5. Essential hypertension 6. History of asthma no exacerbation at this time 7. History of hypothyroidism 8. History of neuropathy Hospital course This is a 50-year-old female patient who presented with complaints of suicidal ideation and alcohol intoxication. Patient reports that her on April 18 and since then patient has been struggling. Patient has a known past medical history of EtOH, bipolar disorder, hypertension, asthma, thyroid cancer and binge drinking. Patient follows with outpatient psychiatry Dr. Baez. Patient reports that she has been binge drinking vodka for the past 3 days. Patient reports that she's had increased thoughts of suicidal ideation since the passing of her . Alcohol withdrawal protocol has been initiated psychiatry services have been consulted. medical doctor is at bedside. A.m. labs have been ordered. Patient denies any other specific complaints. Patient does have noticeable tremors related to alcohol trial. Patient denies chest pain or shortness breath. Patient denies nausea vomiting or diarrhea. Patient denies any urinary burning or frequency On 05/15/2019 patient is alert and oriented 3. Patient is showing no signs of alcohol withdrawal. Patient has not required Ativan for the past 12 hours was also evaluated by inpatient psychiatry services. Per psychiatry patient is not currently suicidal does not require inpatient psychiatry admission. Patient has been cleared for discharge from psychiatry services advised patient to continue psychotropic medications and follow-up with [facility]. Patient advised to avoid alcohol. Patient to follow-up with her PCP in 2 days. Patient to follow-up with support system including her sister and sponsor she also has plan to follow with grief counselor in regards to recent of . This time patient denies any thoughts of suicide or harm to others. Patient denies chest pain or shortness breath. Patient denies nausea vomiting or diarrhea. Patient denies any urinary burning or frequency. I performed an examination of the patient and discussed their management with the Nurse Practitioner. I have reviewed the Nurse Practitioner's notes and agree with the documented findings and plan of care Patient Condition at Discharge: Stable Plan - Discharge Summary Discharge Rx Participant: No New Discharge Prescriptions: New LORazepam [Ativan] 0.5 mg PO BID PRN 3 Days #6 tab PRN Reason: Alcohol Withdrawal Continue Multivitamins, Thera [Multivitamin (formulary)] 1 tab PO DAILY Folic Acid 1 mg PO DAILY #30 Montelukast [Singulair] 10 mg PO DAILY #30 Fluticasone Nasal Lititz [Flonase Nasal Lititz] 1 spr EA NOSTRIL DAILY PRN PRN Reason: Allergy Symptoms Vivitrol 380mg Er 380 mg IM Q28D lamoTRIgine [LaMICtal] 200 mg PO DAILY 30 Days #30 tablet Escitalopram [Lexapro] 20 mg PO HS #30 tab amLODIPine [Norvasc] 5 mg PO DAILY 30 Days #30 tab Levothyroxine Sodium [Synthroid] 200 mcg PO DAILY 30 Days #30 tablet Topiramate [Topamax] 50 mg PO BID #120 tab Albuterol Inhaler [Ventolin Hfa Inhaler] 1 - 2 puff INHALATION RT-Q6H PRN 30 Days #1 puff PRN Reason: Shortness Of Breath Lisinopril [Zestril] 20 mg PO DAILY 30 Days #30 tab Naltrexone HCl [Revia] 50 mg PO DAILY Gabapentin [Neurontin] 300 mg PO TID ARIPiprazole [Abilify] 10 mg PO DAILY traZODone HCL 100 mg PO HS Thiamine [Vitamin B-1] 100 mg PO DAILY Discharge Medication List Multivitamins, Thera [Multivitamin (formulary)] 1 tab PO DAILY 05/31/17 [History] Folic Acid 1 mg PO DAILY #30 06/02/17 [Rx] Montelukast [Singulair] 10 mg PO DAILY #30 06/02/17 [Rx] Fluticasone Nasal Lititz [Flonase Nasal Lititz] 1 spr EA NOSTRIL DAILY PRN 04/10/18 [History] Vivitrol 380mg Er 380 mg IM Q28D 03/28/19 [History] Albuterol Inhaler [Ventolin Hfa Inhaler] 1 - 2 puff INHALATION RT-Q6H PRN 30 Days #1 puff 04/03/19 [Rx] Escitalopram [Lexapro] 20 mg PO HS #30 tab 04/03/19 [Rx] Levothyroxine Sodium [Synthroid] 200 mcg PO DAILY 30 Days #30 tablet 04/03/19 [Rx] Lisinopril [Zestril] 20 mg PO DAILY 30 Days #30 tab 04/03/19 [Rx] Topiramate [Topamax] 50 mg PO BID #120 tab 04/03/19 [Rx] amLODIPine [Norvasc] 5 mg PO DAILY 30 Days #30 tab 04/03/19 [Rx] lamoTRIgine [LaMICtal] 200 mg PO DAILY 30 Days #30 tablet 04/03/19 [Rx] Gabapentin [Neurontin] 300 mg PO TID 04/19/19 [History] Naltrexone HCl [Revia] 50 mg PO DAILY 04/19/19 [History] ARIPiprazole [Abilify] 10 mg PO DAILY 05/13/19 [History] Thiamine [Vitamin B-1] 100 mg PO DAILY 05/13/19 [History] traZODone HCL 100 mg PO HS 05/13/19 [History] LORazepam [Ativan] 0.5 mg PO BID PRN 3 Days #6 tab 05/15/19 [Rx] Follow up Appointment(s)/Referral(s): Karan Huitron MD [Primary Care Provider] - 1-2 days Activity/Diet/Wound Care/Special Instructions: Activity as tolerated Diet heart healthy Patient to follow-up with [facility] Discharge Disposition: HOME SELF-CARE
[2019-05-15 11:12] VITALS: PULSE 64; RESP 13
== END 2019-05-15 12:23 | disposition home or self-care (01) ==
LOC: EC 16:22 → 4SSUR 18:00 → OBSVTOIN 05-15 08:08 → INTOOBSV 05-15 08:08 → UNDODISIN 05-15 12:23
PROVIDERS: ADMIT Internal Medicine; ATTEND Internal Medicine
DX: F10.129 Alcohol abuse with intoxication, unspecified (principal); R45.851 Suicidal ideations; Y90.8 Blood alcohol level of 240 mg/100 ml or more; F31.9 Bipolar disorder, unspecified; Z98.890 Other specified postprocedural states; I10 Essential (primary) hypertension; J30.9 Allergic rhinitis, unspecified; L40.9 Psoriasis, unspecified; F41.9 Anxiety disorder, unspecified; E66.9 Obesity, unspecified; Z68.30 Body mass index [BMI] 30.0-30.9, adult; J45.909 Unspecified asthma, uncomplicated; Z63.4 Disappearance and death of family member; Z79.890 Hormone replacement therapy; Z79.899 Other long term (current) drug therapy; Z85.850 Personal history of malignant neoplasm of thyroid; Z91.5 Personal history of self-harm; Z81.1 Family history of alcohol abuse and dependence; Z80.3 Family history of malignant neoplasm of breast; Z80.0 Family history of malignant neoplasm of digestive organs
CPT/HCPCS: 96376 ×2; 96361 ×2; 96372; 96374; 96375; 99285; 36415; 80053 ×2; 85025 ×2; 81001; 80306; 87086; G0378 ×4; G0480; J2060; J3411; J2405; 80320

== ENCOUNTER 2019-08-08 20:15 | Inpatient (IN) | payer MEDICAID, OTHER ==
[2019-08-08] MEDS ORDERED: SODIUM CHLORIDE 0.9% 1,000 ML with MVI, ADULT NO.4 WITH VIT K 10 ML, THIAMINE 100 MG, F... IV ONE ×4 (21:56)
--- NOTE | 2019-08-08 21:58 | ED ---
Psych HPI - General Chief Complaint: Psychiatric Symptoms Stated Complaint: suicidal Time Seen by Provider: 08/08/19 20:59 Source: patient Mode of arrival: wheelchair - History of Present Illness Initial Comments: 58-year-old female patient presents to the emergency department today for evaluation of suicidal ideation. Patient states that she has been increasing her alcohol intake over the last several days, worse today. States that she has been increasingly depressed has been having thoughts of killing herself. [place] and her plan is to jump in front of a train. Patient states that she has attempted suicide in the past and has had multiple mental health admissions. Patient states her in April which has been making things worse. She denies any suicide attempt today. She denies any current physical symptoms or concerns. Patient denies any recent rash, fever, chills, shortness breath, chest pain, abdominal pain, nausea, vomiting, diarrhea, constipation, back pain, numbness, tingling, dizziness, weakness, hematuria, dysuria, urinary urgency, urinary frequency, headache, visual changes, or any other complaints. - Related Data Home Medications Medication Instructions Recorded Confirmed Vivitrol 380mg Er 380 mg IM Q28D 03/28/19 08/08/19 Gabapentin [Neurontin] 300 mg PO TID 04/19/19 08/08/19 ARIPiprazole [Abilify] 10 mg PO DAILY 05/13/19 08/08/19 Thiamine [Vitamin B-1] 100 mg PO DAILY 05/13/19 08/08/19 traZODone HCL 100 mg PO HS 05/13/19 08/08/19 Previous Rx's Medication Instructions Recorded Folic Acid 1 mg PO DAILY #30 06/02/17 Montelukast [Singulair] 10 mg PO DAILY #30 06/02/17 Escitalopram [Lexapro] 20 mg PO HS #30 tab 04/03/19 Levothyroxine Sodium [Synthroid] 200 mcg PO DAILY 30 Days #30 tablet 04/03/19 Lisinopril [Zestril] 20 mg PO DAILY 30 Days #30 tab 04/03/19 Topiramate [Topamax] 50 mg PO BID #120 tab 04/03/19 amLODIPine [Norvasc] 5 mg PO DAILY 30 Days #30 tab 04/03/19 lamoTRIgine [LaMICtal] 200 mg PO DAILY 30 Days #30 tablet 04/03/19 Allergies Allergy/AdvReac Type Severity Reaction Status Date / Time clindamycin Allergy Unknown Rash/Hives Verified 08/09/19 15:49 acetylcysteine Allergy Anaphylaxis Verified 08/09/19 15:49 [From Mucomyst] chlordiazepoxide HCl AdvReac Hallucinati Verified 08/09/19 15:49 [From Librium] ons citalopram [From Celexa] AdvReac Hallucinati Verified 08/09/19 15:49 ons diphenhydramine HCl AdvReac Rapid Verified 08/09/19 15:49 [From Benadryl] Heart Rate Review of Systems ROS Statement: Those systems with pertinent positive or pertinent negative responses have been documented in the HPI. ROS Other: All systems not noted in ROS Statement are negative. Past Medical History Past Medical History: Asthma, Cancer, Hypertension, Thyroid Disorder Additional Past Medical History / Comment(s): History of goiter status post thyroidectomy, questionable history of thyroid cancer although this is not clear, bipolar disorder, depression, history of suicidal ideations, history of drug overdose, alcoholism, seasonal rhinitis, psoriasis, breast cysts, history of broken toes in the right foot, hypertension, History of Any Multi-Drug Resistant Organisms: None Reported Past Surgical History: No Surgical Hx Reported Additional Past Surgical History / Comment(s): Thyroidectomy 1999, SKIN NEVI REMOVED Past Anesthesia/Blood Transfusion Reactions: Previous Problems w/ Anesthesia, Postoperative Nausea & Vomiting (PONV) Additional Past Anesthesia/Blood Transfusion Reaction / Comment(s): Pt lives with in their home. They have been together 12 yrs. Pt is normally independent. Pt is an alcoholic. She is feeling more depressed lately and ashamed of her alcoholism. PT STATED SHE IS A BINGE DRINKER AND IS A BLACK OUT DRINKER,THINKS SHE STARTED DRINKING 4-5 DAYS AGO 3 PINTS A DAY AND WHEN COMING DOWN DRANK SUAVE HAIR SPRAY( does not allow alcohol in the home so pt has drinks hand cardboard cutter or hair spray per her ). Pt no longer has a drivers license- she has had 2 DUI's. 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 She is seen at [facility] by Dr. Baez and has a councelor-NICO. She has alot of hindu friends. drives her to her appts. Past Psychological History: Anxiety, Bipolar, Depression Smoking Status: Never smoker Past Alcohol Use History: Abuse, Daily, Heavy Past Drug Use History: Unable to Obtain - Past Family History Father Family Medical History: Cancer Additional Family Medical History / Comment(s): Father at age 64 of esophageal cancer. Father was an alcoholic and had cirrhosis of the liver. Mother Family Medical History: Cancer Additional Family Medical History / Comment(s): Mother of breast cancer at age 42yrs. General Exam Limitations: no limitations General appearance: alert, in no apparent distress, other (This is a well- developed, well-nourished adult female patient in no acute distress. Vital signs upon presentation are temperature 97.9F, pulse 92, respirations 18, blood pressure 150/97, pulse ox 99% on room air) Eye exam: Present: normal appearance, PERRL, EOMI. Absent: scleral icterus, conjunctival injection, periorbital swelling ENT exam: Present: normal exam, normal oropharynx, mucous membranes moist Respiratory exam: Present: normal lung sounds bilaterally. Absent: respiratory distress, wheezes, rales, rhonchi, stridor Cardiovascular Exam: Present: regular rate, normal rhythm, normal heart sounds. Absent: systolic murmur, diastolic murmur, rubs, gallop, clicks GI/Abdominal exam: Present: soft, normal bowel sounds. Absent: distended, tenderness, guarding, rebound, rigid Neurological exam: Present: alert, oriented X3, CN II-XII intact Psychiatric exam: Present: depressed, suicidal ideation. Absent: homicidal ideation Skin exam: Present: warm, dry, intact, normal color. Absent: rash Course Vital Signs 08/08/19 08/08/19 08/09/19 20:20 22:21 01:46 Temperature 97.9 F Pulse Rate 92 87 71 Respiratory 18 16 18 Rate Blood Pressure 150/97 120/76 116/76 O2 Sat by Pulse 99 93 L 98 Oximetry 08/09/19 08/09/19 08/09/19 03:00 04:40 08:53 Temperature 98.6 F Pulse Rate 78 56 L Respiratory 18 18 20 Rate Blood Pressure 123/76 148/81 154/97 O2 Sat by Pulse 98 98 86 L Oximetry 08/09/19 08/09/19 08/09/19 09:00 10:00 11:00 Temperature Pulse Rate Respiratory 18 20 Rate Blood Pressure 154/97 153/100 153/98 O2 Sat by Pulse 88 L 92 L 93 L Oximetry 08/09/19 08/09/19 08/09/19 11:58 12:00 13:00 Temperature Pulse Rate 68 Respiratory 18 Rate Blood Pressure 153/98 146/88 157/96 O2 Sat by Pulse 93 L 93 L 93 L Oximetry Medical Decision Making - Medical Decision Making Patient evaluated by emergency psychiatric services. It is felt she would benefit from inpatient admission. She'll be transferred to the mental health unit. - Lab Data Lab Results 08/08/19 Range/Units 21:30 Urine Opiates Screen Not Detected (NotDetected) Ur Oxycodone Screen Not Detected (NotDetected) Urine Methadone Screen Not Detected (NotDetected) Ur Propoxyphene Screen Not Detected (NotDetected) Ur Barbiturates Screen Not Detected (NotDetected) U Tricyclic Antidepress Not Detected (NotDetected) Ur Phencyclidine Scrn Not Detected (NotDetected) Ur Amphetamines Screen Not Detected (NotDetected) U Methamphetamines Scrn Not Detected (NotDetected) U Benzodiazepines Scrn Detected H (NotDetected) Urine Cocaine Screen Not Detected (NotDetected) U Marijuana (THC) Screen Not Detected (NotDetected) Disposition Clinical Impression: Suicidal ideation Disposition: ADMITTED IP TO THIS HOSP Condition: Fair
[2019-08-08 22:42] LABS: Amphetamine Screen,Urine Not Detected (NotDetected); Barbiturate Screen,Urine Not Detected (NotDetected); Benzodiazepines Screen,Urine Detected (NotDetected); Cocaine Screen,Urine Not Detected (NotDetected); Methadone Screen, Urine Not Detected (NotDetected); Opiate Screen,Urine Not Detected (NotDetected); Oxycodone Screen, Urine Not Detected (NotDetected); Phencyclidine Screen,Urine Not Detected (NotDetected); Tricyclic Antidepressant,Urine Not Detected (NotDetected); Urn Cannabinoid Scrn Not Detected (NotDetected)
[2019-08-09] MEDS ORDERED: LORazepam 1 MG TAB PO STA (06:07)
[2019-08-09] MEDS ORDERED: ONDANSETRON 4 MG/2 ML VIAL IVP STA (06:07)
[2019-08-09] MEDS ORDERED: LORazepam 2 MG/ML INJ IV PRN ×2 (12:24)
[2019-08-09] MEDS: LORazepam 2 MG/ML INJ IV PRN ×2 (12:36→14:01)
[2019-08-09] MEDS ORDERED: MAGNESIUM HYDROXIDE 2,400 MG/10 ML CUP PO PRN (15:27)
[2019-08-09] MEDS ORDERED: ACETAMINOPHEN TAB 325 MG TAB PO PRN (15:27)
[2019-08-09] MEDS ORDERED: LORazepam 1 MG TAB PO PRN ×2 (15:40→20:10)
[2019-08-09] MEDS ORDERED: ONDANSETRON 4 MG TAB PO PRN (15:45)
[2019-08-09] MEDS: GABAPENTIN 300 MG CAP PO SCH ×2 (16:05→20:45)
[2019-08-09] MEDS: lamoTRIgine 100 MG TAB PO SCH (16:06)
[2019-08-09] MEDS: amLODIPine 5 MG TAB PO SCH (16:06)
[2019-08-09] MEDS: ARIPiprazole 5 MG TAB PO SCH (16:06)
[2019-08-09] MEDS: FOLIC ACID 1 MG TAB PO SCH (16:06)
[2019-08-09] MEDS: NALTREXONE HCL 50 MG TAB PO SCH (16:06)
[2019-08-09] MEDS ORDERED: IBUPROFEN 600 MG TAB PO PRN (18:59)
[2019-08-09] MEDS: ESCITALOPRAM 20 MG TAB PO SCH (20:44)
[2019-08-09] MEDS: traZODone HCL 100 MG TAB PO SCH (20:45)
[2019-08-09] MEDS: TOPIRAMATE 25 MG TAB PO SCH (20:45)
[2019-08-10] MEDS: LEVOTHYROXINE 100 MCG TAB PO SCH (06:18)
[2019-08-10] MEDS: THIAMINE 100 MG TAB PO SCH (08:06)
[2019-08-10] MEDS: ARIPiprazole 5 MG TAB PO SCH (08:06)
[2019-08-10] MEDS: lamoTRIgine 100 MG TAB PO SCH (08:06)
[2019-08-10] MEDS: FOLIC ACID 1 MG TAB PO SCH (08:06)
[2019-08-10] MEDS: NALTREXONE HCL 50 MG TAB PO SCH (08:06)
[2019-08-10] MEDS: GABAPENTIN 300 MG CAP PO SCH ×3 (08:06→21:00)
[2019-08-10] MEDS: TOPIRAMATE 25 MG TAB PO SCH ×2 (08:06→21:00)
[2019-08-10] MEDS: amLODIPine 5 MG TAB PO SCH (08:06)
[2019-08-10] MEDS: LISINOPRIL 20 MG TAB PO SCH (08:06)
[2019-08-10] MEDS: MONTELUKAST 10 MG TAB PO SCH (08:06)
--- NOTE | 2019-08-10 11:22 | P.CONS ---
History of Present Illness - Reason for Consult Consult date: 08/10/19 Medical management Requesting physician: Rahul Colón - Chief Complaint Depression and suicidal ideation - History of Present Illness This is a 58-year-old female with a known past medical history of alcohol abuse, depression, previous psychiatric admissions due to suicidal ideation, hypertension, hypothyroidism due to thyroidectomy, bipolar and prior history of drug overdose. Patient presents to the emergency room with suicidal thoughts. She has been more depressed. She does report taking all of her medications as prescribed at home. She's also been increasing her alcohol intake over the last several days. She's been having thoughts per ER report about jumping in front of a train that is near her house. Her in April which has been making things worse. We have been consulted for medical management. She was admitted to the psychiatric unit. They do have her on Ativan for alcohol withdrawal. She does have a slight tremor and some nausea. She is complaining of some cough with some yellowish sputum that has been, chronic. She has seasonal sinus congestion. She is asking for her albuterol to be restarted. She also takes Flonase and that will be restarted. She denies any fever chills or sweats. Denies any chest pain or shortness of breath. Denies any vomiting, bowel movement changes or urinary symptoms. Review of Systems Please refer to HPI otherwise unremarkable Past Medical History Past Medical History: Asthma, Cancer, Hypertension, Thyroid Disorder Additional Past Medical History / Comment(s): History of goiter status post thyroidectomy, questionable history of thyroid cancer although this is not clear, bipolar disorder, depression, history of suicidal ideations, history of drug overdose, alcoholism, seasonal rhinitis, psoriasis, breast cysts, history of broken toes in the right foot, hypertension, History of Any Multi-Drug Resistant Organisms: None Reported Past Surgical History: No Surgical Hx Reported Additional Past Surgical History / Comment(s): Thyroidectomy 1999, SKIN NEVI REMOVED Past Anesthesia/Blood Transfusion Reactions: Previous Problems w/ Anesthesia, Postoperative Nausea & Vomiting (PONV) Additional Past Anesthesia/Blood Transfusion Reaction / Comm: Pt lives with in their home. They have been together 12 yrs. Pt is normally independent. Pt is an alcoholic. She is feeling more depressed lately and ashamed of her alcoholism. 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 Pt no longer has a drivers license- she has had 2 DUI's. 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 She is seen at [facility] by Dr. Baez and has a councelor-NICO. She has alot of protestant friends. drives her to her appts. Past Psychological History: Anxiety, Bipolar, Depression Smoking Status: Never smoker Past Alcohol Use History: Abuse, Daily, Heavy Past Drug Use History: Unable to Obtain - Past Family History Father Family Medical History: Cancer Additional Family Medical History / Comment(s): Father at age 64 of esophageal cancer. Father was an alcoholic and had cirrhosis of the liver. Mother Family Medical History: Cancer Additional Family Medical History / Comment(s): Mother of breast cancer at age 42yrs. Medications and Allergies Home Medications Medication Instructions Recorded Confirmed Type Folic Acid 1 mg PO DAILY #30 06/02/17 08/08/19 Rx Montelukast [Singulair] 10 mg PO DAILY #30 06/02/17 08/08/19 Rx Vivitrol 380mg Er 380 mg IM Q28D 03/28/19 08/08/19 History Escitalopram [Lexapro] 20 mg PO HS #30 tab 04/03/19 08/08/19 Rx Levothyroxine Sodium [Synthroid] 200 mcg PO DAILY 30 Days #30 tablet 04/03/19 08/08/19 Rx Lisinopril [Zestril] 20 mg PO DAILY 30 Days #30 tab 04/03/19 08/08/19 Rx Topiramate [Topamax] 50 mg PO BID #120 tab 04/03/19 08/08/19 Rx amLODIPine [Norvasc] 5 mg PO DAILY 30 Days #30 tab 04/03/19 08/08/19 Rx lamoTRIgine [LaMICtal] 200 mg PO DAILY 30 Days #30 tablet 04/03/19 08/08/19 Rx Gabapentin [Neurontin] 300 mg PO TID 04/19/19 08/08/19 History ARIPiprazole [Abilify] 10 mg PO DAILY 05/13/19 08/08/19 History Thiamine [Vitamin B-1] 100 mg PO DAILY 05/13/19 08/08/19 History traZODone HCL 100 mg PO HS 05/13/19 08/08/19 History Allergies Allergy/AdvReac Type Severity Reaction Status Date / Time clindamycin Allergy Unknown Rash/Hives Verified 08/09/19 15:49 acetylcysteine Allergy Anaphylaxis Verified 08/09/19 15:49 [From Mucomyst] chlordiazepoxide HCl AdvReac Hallucinati Verified 08/09/19 15:49 [From Librium] ons citalopram [From Celexa] AdvReac Hallucinati Verified 08/09/19 15:49 ons diphenhydramine HCl AdvReac Rapid Verified 08/09/19 15:49 [From Benadryl] Heart Rate Physical Exam Vitals: Vital Signs Temp Pulse Pulse Resp BP BP Pulse Ox 08/10/19 08:05 99 136/91 08/10/19 04:04 97.8 F 74 18 129/81 08/10/19 00:05 98.1 F 56 L 16 123/76 08/09/19 20:00 87 18 148/78 08/09/19 16:13 80 18 153/89 08/09/19 15:45 99.2 F 84 18 149/100 96 08/09/19 15:35 98.6 F 68 18 157/96 93 L 08/09/19 13:00 157/96 93 L 08/09/19 12:00 146/88 93 L 08/09/19 11:58 68 18 153/98 93 L Intake and Output 08/09/19 08/10/19 08/10/19 22:59 06:59 14:59 Intake Total 1500 Balance 1500 Intake: Amount of Fluid Infused ( 1500 ml) Head normocephalic Neck supple Lungs clear to auscultation bilaterally no wheezing or crackles Heart regular rate and rhythm S1-S2, no rub or gallop Abdomen is soft nontender nondistended positive bowel sounds no hepatosplenomegaly Extremities no edema Neuro alert and orientated to 3 Assessment and Plan Assessment: 1. Severe depression with suicidal ideation: Patient is been admitted to the psychiatric unit. Continue planning to her psychiatrist. 2. Sinus congestion and cough. Check chest x-ray. Resume patient's Flonase and albuterol. We'll monitor off of antibiotic. Patient denies any fever. Awaiting CBC results 3. Alcohol abuse and evidence of withdrawal. Continue the Ativan as needed for alcohol withdrawal. Continue thiamine and folic acid. Add multivitamin. 4. Essential hypertension continue her lisinopril and Norvasc. Blood pressure stable 5. History of previous suicide attempts 6. History of mild intermittent asthma with no evidence of exacerbation. Resume albuterol inhaler 7. Hypothyroidism with history of thyroid cancer and thyroidectomy. Continue Synthroid. Check TSH level. Thank you for this consultation. We'll follow up on patient's chest x-ray and blood work. Time with Patient: Greater than 30 (Greater than 50% of the total time spent in counseling and coordination of care.I performed an examination of the patient and discussed their management with the physician Retail Event And Sales Assistant. I have reviewed the Physician Retail Event And Sales Assistant's notes and agree with the documented findings and plan of care)
[2019-08-10] MEDS: MULTIVITAMINS, THERA 1 EACH TAB PO SCH (12:11)
[2019-08-10] MEDS: FLUTICASONE 50MCG/SPRAY NASAL 16GM EA NOSTRIL SCH (12:11)
--- NOTE | 2019-08-10 12:32 | XR ---
EXAMINATION TYPE: XR chest 2V DATE OF EXAM: 08/10/2019 COMPARISON: 11/10/2016 TECHNIQUE: PA and lateral views submitted. HISTORY: Cough FINDINGS: No pleural effusion, pneumothorax or overt failure. Coarsened interstitium. Subsegmental changes righ t lung base. IMPRESSION: 1. Basilar atelectasis favored over pneumonia correlate clinically. 2. Coarsened interstitium could be seen with bronchitis or interstitial pneumonitis correlate clinica lly.
[2019-08-10] MEDS: LORazepam 1 MG TAB PO PRN (14:51)
--- NOTE | 2019-08-10 17:28 | HP ---
HISTORY AND PHYSICAL DATE OF SERVICE: 08/10/2019 IDENTIFYING DATA: The patient is a 58-year-old female. She lives on her own. She was admitted through the emergency department. CHIEF COMPLAINT: The patient was depressed. She had relapsed to drinking. She has long-term psychiatric issues. HISTORY OF PRESENTING ILLNESS: The patient has had multiple psychiatric admissions to this facility. Admissions generally relate to her struggles with alcohol dependence. Her last hospitalization here was March 29 due to relapse in drinking. I refer the reader to my admission note of March 30, 2019, and other notes from that admission for details. The patient had a subsequent admission to [facility] on May 13 for intoxication and depression. I refer the reader to Dr. Garcia's psychiatric consultation of May 14, 2019, for details. It is noted that in April her ; he had significant problems with COPD. During her last hospitalization in [place], [place]. The patient indicates that he made a decision to go off the ventilator, though did not recover to be discharged from the hospital. The patient has had a lot of grief issues relating to her 's passing. In addition, patient has been drinking intermittently. She says that up until the last 5 days she was drinking "occasionally." The best I was able to tell is that she was probably drinking on at least a once-a-week basis. The patient said that when she drank she would drink about a half a pint of alcohol in a day. She notes that in the last 5 days she relapsed to drinking on a daily basis. She says she has been drinking a pint or possibly more than a pint per day for the last 5 days. She notes that she has had continuing grief and depression issues relating to the loss of her . She notes that she has been sleeping poorly. She has loss of motivation, energy and interest. She says that she has been making efforts at stabilizing her life situation. 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 She notes that she has been going to taoist 3 days a week. She will occasionally go to AA meetings, though says that transportation is a problem. 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 She has been under a court order for chemical dependency. Psychotropic medications the patient has been on since her April hospitalization include Abilify 7.5 mg twice a day and trazodone 50 mg at bedtime. The patient reports significant depression, probably relating as much to her inability to stop drinking as anything else. She does not describe manic or psychotic symptoms. She does report anxiety though was vague about whether or not she experiences panic symptoms. She describes hopeless feelings, especially related to her inability to resist using alcohol. She has been on Vivitrol. The patient reports that her currently medications include Lexapro 20 mg at bedtime, Lamictal 200 mg a day, Abilify 10 mg a day, Neurontin 300 mg 3 times a day, Topamax 50 mg twice a day and trazodone 100 mg at bedtime. She is admitted for further evaluation. PAST MEDICAL HISTORY, REVIEW OF SYSTEMS AND PHYSICAL EXAMINATION: As per medical consultation of Mavis Melendrez PA-C. FAMILY AND SOCIAL HISTORY: Please refer to previous admission note for details. Her current situation is that she is living alone. Her May 05. She is followed by [facility]. MENTAL STATUS EXAMINATION: Patient sat with some restlessness. She gave fair eye contact. She answered questions appropriately. Her thoughts were clear. Her affect was anxious. She was depressed and moderately distressed. There was no indication of thought disorder. Cognition was clear. ASSESSMENT: This 58-year-old female is diagnosed with alcohol dependence, continuous. She has had very limited periods of sobriety, and it is not likely that she has been able to accomplish more than perhaps one month without drinking. She has been through multiple substance abuse treatment programs, including having been in a one-year treatment program about 2 years ago. It is noteworthy that during that stay, she reported being sober throughout the stay, though she relapsed to drinking on the day she was discharged and had a medical admission at this facility as a result. In addition to her advanced alcohol issues, she has secondary depression and grief issues. Strengths include her having recently obtained a job. Weakness includes relapse to drinking. DIAGNOSES: 1. Alcohol dependence, continuous. 2. Acute alcohol withdrawal. 3. Major depression secondary to alcohol dependence. 4. History of thyroid cancer. 5. Hypertension. 6. Sick sinus syndrome. 7. History of mild intermittent asthma. RECOMMENDATIONS: Patient will be admitted for comprehensive medical, psychiatric and psychosocial evaluation. Will engage the patient in individual and group therapeutic activities. She will be continued on her current psychotropic medications, including Lexapro 20 mg a day, Abilify 10 mg a day and trazodone 100 mg at bedtime. In addition, she is on Neurontin 300 mg 3 times a day, Lamictal 200 mg a day, naltrexone 50 mg a day and Topamax 50 mg twice a day. She will be followed for a withdrawal protocol. Based on the patient's report of her drinking, she likely is at relatively low risk for seizures or delirium tremens, given that she has had only a 5-day relapse and otherwise describes once-a-week drinking prior to that through the summer months. She will be followed by a [facility] protocol and will have vital signs every 4 hours. We will focus on stabilization and discharge planning. LISA / JACK: [id number] /
[2019-08-10] MEDS: AMOXIC-POT CLAV 500-125 MG 1 EACH TAB PO SCH (21:00)
[2019-08-10] MEDS: traZODone HCL 100 MG TAB PO SCH (21:00)
[2019-08-10] MEDS: ESCITALOPRAM 20 MG TAB PO SCH (21:00)
[2019-08-11] MEDS: LEVOTHYROXINE 100 MCG TAB PO SCH (06:05)
[2019-08-11 08:00] LABS: Basophils # (A) 0.1 k/uL (0-0.2); Basophils % (A) 1 %; Eosinophils # (A) 0.3 k/uL (0-0.7); Eosinophils % (A) 7 %; HCT 46.9 % (34.0-46.0); Lymphocytes # (A) 0.9 k/uL (1.0-4.8); Lymphocytes % (A) 25 %; MCH 31.9 pg (25.0-35.0); MCV 99.5 fL (80.0-100.0); Mean Platelet Volume 8.4; Monocytes # (A) 0.3 k/uL (0-1.0); Monocytes % (A) 7 %; Neutrophils % (A) 55 %; Platelet Count 171 k/uL (150-450); RBC 4.72 m/uL (3.80-5.40); RDW 13.6 % (11.5-15.5); WBC 3.6 k/uL (3.8-10.6)
[2019-08-11] MEDS: MONTELUKAST 10 MG TAB PO SCH (08:02)
[2019-08-11] MEDS: AMOXIC-POT CLAV 500-125 MG 1 EACH TAB PO SCH ×2 (08:02→20:51)
[2019-08-11] MEDS: amLODIPine 5 MG TAB PO SCH (08:02)
[2019-08-11] MEDS: FOLIC ACID 1 MG TAB PO SCH (08:03)
[2019-08-11] MEDS: FLUTICASONE 50MCG/SPRAY NASAL 16GM EA NOSTRIL SCH (08:03)
[2019-08-11] MEDS: LISINOPRIL 20 MG TAB PO SCH (08:03)
[2019-08-11] MEDS: NALTREXONE HCL 50 MG TAB PO SCH (08:03)
[2019-08-11] MEDS: lamoTRIgine 100 MG TAB PO SCH (08:03)
[2019-08-11] MEDS: ARIPiprazole 5 MG TAB PO SCH (08:03)
[2019-08-11] MEDS: MULTIVITAMINS, THERA 1 EACH TAB PO SCH (08:04)
[2019-08-11] MEDS: TOPIRAMATE 25 MG TAB PO SCH ×2 (08:04→20:52)
[2019-08-11] MEDS: GABAPENTIN 300 MG CAP PO SCH ×3 (08:04→20:52)
[2019-08-11] MEDS: THIAMINE 100 MG TAB PO SCH (08:04)
[2019-08-11 08:57] LABS: ALT 58 U/L (9-52); AST 63 U/L (14-36); African American GFR (CKD) 84 (>60 ml/min/1.73 sqM); Albumin 4.3 g/dL (3.5-5.0); Alkaline Phosphatase 43 U/L (38-126); Anion Gap 9 mmol/L; Blood Urea Nitrogen 11 mg/dL (7-17); Calcium 10.3 mg/dL (8.4-10.2); Carbon Dioxide 27 mmol/L (22-30); Chloride 105 mmol/L (98-107); Cholesterol 232 mg/dL (<200); Glucose 94 mg/dL (74-99); HDL Cholesterol 92 mg/dL (40-60); LDL Cholesterol,Calculated 123 mg/dL (0-99); Potassium 5.1 mmol/L (3.5-5.1); Sodium 141 mmol/L (137-145); Total Bilirubin 0.6 mg/dL (0.2-1.3); Total Protein 7.4 g/dL (6.3-8.2); Triglycerides 83 mg/dL (<150)
--- NOTE | 2019-08-11 10:55 | P.PN ---
Progress Note - Text Interval history: The patient is found in the hallway she follows me to an interview room. She presented with suicidal ideation in the context of an alcohol use disorder. She states that her this past April and that has been very traumatic. She identifies that as being the reason that she has been relapsing. Her outpatient psychiatric medicines were continued. She states today that she is feeling better. She is very happy that she was informed she will be able to keep her part-time job despite being in the hospital now. Staff reported she slept 6 hours. CIWA score reviewed. She has been eating and she has been attending groups. Mental status exam: The patient is alert she stressor own clothing she is wearin g a blanket over top. Eye contact is appropriate speech is fluent spontaneous nonpressured. She is pleasant and cooperative she reports her mood is improving she is reporting no suicidal thoughts today. She is endorsing no auditory or visual hallucinations or any specific delusions. She demonstrates no tangential thinking loose associations or flight of ideas she does not appear hypomanic or manic. Insight and judgment improving. She does demonstrate some fine amplitude tremor of upper extremities with intention. Plan: The patient will continue on her current medications. We will monitor her for safety. Vital signs reviewed. She is encouraged to continue participating fully in the milieu. She requires continued psychiatric hospitalization for evaluation and treatment.
[2019-08-11] MEDS: MAG HYDROX/AL HYDROX/SIMETH 30 ML CUP PO PRN (18:02)
[2019-08-11] MEDS: ESCITALOPRAM 20 MG TAB PO SCH (20:52)
[2019-08-11] MEDS: traZODone HCL 100 MG TAB PO SCH (20:52)
[2019-08-12] MEDS: LEVOTHYROXINE 100 MCG TAB PO SCH (06:28)
[2019-08-12] MEDS: FLUTICASONE 50MCG/SPRAY NASAL 16GM EA NOSTRIL SCH (07:59)
[2019-08-12] MEDS: lamoTRIgine 100 MG TAB PO SCH (08:00)
[2019-08-12] MEDS: NALTREXONE HCL 50 MG TAB PO SCH (08:00)
[2019-08-12] MEDS: LISINOPRIL 20 MG TAB PO SCH (08:00)
[2019-08-12] MEDS: GABAPENTIN 300 MG CAP PO SCH ×3 (08:00→20:38)
[2019-08-12] MEDS: MONTELUKAST 10 MG TAB PO SCH (08:00)
[2019-08-12] MEDS: TOPIRAMATE 25 MG TAB PO SCH ×2 (08:00→20:38)
[2019-08-12] MEDS: amLODIPine 5 MG TAB PO SCH (08:00)
[2019-08-12] MEDS: ARIPiprazole 5 MG TAB PO SCH (08:00)
[2019-08-12] MEDS: MULTIVITAMINS, THERA 1 EACH TAB PO SCH (08:00)
[2019-08-12] MEDS: THIAMINE 100 MG TAB PO SCH (08:00)
[2019-08-12] MEDS: AMOXIC-POT CLAV 500-125 MG 1 EACH TAB PO SCH ×2 (08:00→20:38)
[2019-08-12] MEDS: FOLIC ACID 1 MG TAB PO SCH (08:00)
[2019-08-12] MEDS: ALBUTEROL INHALER 60 PUFF/8 GM INHALER INHALATION PRN (08:01)
[2019-08-12] MEDS: MAG HYDROX/AL HYDROX/SIMETH 30 ML CUP PO PRN (10:13)
--- NOTE | 2019-08-12 10:14 | P.PN ---
Progress Note - Text Interval history: The patient is found in the hallway she follows me to an interview room. She indicates that her mood is much improved. She states she slept throughout the night staff reported she slept at least 6 hours. Appetite stable she has been attending groups. She spontaneously hold out her arms and demonstrates no tremor. CIWA scores have been 0. She has been compliant with all of her psychotropic medication and has no questions regarding those. Again she is pleased that she is able to retain her job. She states that the roommate that was residing with her finally moved out which is a relief as she had been working on that for quite some time. The patient states that she is hoping she will be discharged early this week. Mental status exam: The patient is alert she seated calmly she addressed her own clothing hygiene grooming are good. She is pleasant cooperative and easily directed. Speech is fluent spontaneous nonpressured. She denies having any hopelessness thinking she denies having any suicidal or homicidal ideation intent or plan. She reports no auditory or visual hallucinations or any specifi c delusions. There is no observed evidence of psychosis. She demonstrates no tangential thinking loose associations or flight of ideas. Affect is more euthymic. Insight and judgment improving. Plan: The patient did speak of some reflux symptoms. I will prescribe Pepcid. We will continue her other psychotropic medications as written. We will monitor her for safety and encourage full participation in the milieu. We will continue to monitor her CIWA scores. She may be appropriate for discharge early this week. Vital signs reviewed.
[2019-08-12] MEDS: FAMOTIDINE 20 MG TAB PO SCH ×2 (10:27→20:38)
[2019-08-12] MEDS: LORazepam 1 MG TAB PO PRN (15:40)
[2019-08-12] MEDS: traZODone HCL 100 MG TAB PO SCH (20:38)
[2019-08-12] MEDS: ESCITALOPRAM 20 MG TAB PO SCH (20:38)
[2019-08-13] MEDS: LEVOTHYROXINE 100 MCG TAB PO SCH (06:29)
[2019-08-13] MEDS: amLODIPine 5 MG TAB PO SCH (08:17)
[2019-08-13] MEDS: AMOXIC-POT CLAV 500-125 MG 1 EACH TAB PO SCH ×2 (08:17→20:38)
[2019-08-13] MEDS: ARIPiprazole 5 MG TAB PO SCH (08:17)
[2019-08-13] MEDS: FOLIC ACID 1 MG TAB PO SCH (08:18)
[2019-08-13] MEDS: FAMOTIDINE 20 MG TAB PO SCH ×2 (08:18→20:38)
[2019-08-13] MEDS: FLUTICASONE 50MCG/SPRAY NASAL 16GM EA NOSTRIL SCH (08:18)
[2019-08-13] MEDS: MONTELUKAST 10 MG TAB PO SCH (08:18)
[2019-08-13] MEDS: lamoTRIgine 100 MG TAB PO SCH (08:18)
[2019-08-13] MEDS: TOPIRAMATE 25 MG TAB PO SCH ×2 (08:18→20:38)
[2019-08-13] MEDS: THIAMINE 100 MG TAB PO SCH (08:18)
[2019-08-13] MEDS: MULTIVITAMINS, THERA 1 EACH TAB PO SCH (08:18)
[2019-08-13] MEDS: ALBUTEROL INHALER 60 PUFF/8 GM INHALER INHALATION PRN (08:19)
[2019-08-13] MEDS: LISINOPRIL 20 MG TAB PO SCH (08:19)
[2019-08-13] MEDS: NALTREXONE HCL 50 MG TAB PO SCH (08:19)
[2019-08-13] MEDS: GABAPENTIN 300 MG CAP PO SCH ×3 (08:19→21:57)
--- NOTE | 2019-08-13 12:53 | P.PN ---
Progress Note - Text Progress Note Date: 08/13/19 Interval History: Patient was seen at the table coloring and drawing and was agreeable to speak to feature writer in the room. Patient was directable and cooperative during the interview however appeared to be somewhat trembling in her hands. Patient was asked about her thyroid condition and states that she has always been on her current dose of Synthroid at 200 g which is recommended by her cook camp. She states that she's had several times to have that decreased however needs to be titrated back up. She states that she does have trembling related to her alcohol withdrawal states her last drink was on Tuesday prior to coming in the hospital. Patient claims that she still required Ativan for the withdrawal symptoms. Patient claims that her shortness of breath and coughing has been improving on the antibiotic and spirometry at this time. Patient claims that her mood has been gradually improving along with her anxiety. 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 Patient claims that she is sleeping well at night on the current medications. She states to have a good appetite and fair energy. At this time patient denies any suicidal or homical ideations, intent or plan. Patient denies any auditory, visual hallucinations and denies any paranoia or delusions. Patient denies any side effects from the medications and has been compliant with meds. Mental Status Exam: General Appearance: Patient appears to be stated age is alert, pleasant, and cooperative. Patient has fair hygiene and fair grooming. Patient has good eye contact. Behavior: Patient is calmly seated without any agitated behavior. Patient does appear to be trembling somewhat in her hands bilaterally. Speech: Patient's speech is fluent and nonpressured. Soft tone. Mood/Affect: Mood is improving, affect is congruent and constricted. Suicidality/Homicidality: Patient denies having any suicidal or homicidal ideation intent or plan. Perceptions: Patient denies any auditory or visual hallucinations. Though content/process: There is no evidence of any delusional thought content and thought process is linear and goal-directed. Memory and concentration: AOX3, grossly intact for the purposes of this session Judgment and insight: Improving Assessment Major depressive disorder Alcohol use disorder, currently in withdrawal Plan: -Patient continues to meet criteria for inpatient psychiatric admission for symptom stabilization and safety. Patient has signed adult voluntary form and medication consent and was placed in patient's chart. -Medications: We'll continue with Abilify 5 mg daily for mood adjunct. Continue with Lexapro 20 mg nightly for mood. Continue with Lamictal 200 mg daily for mood stabilization. Continue naltrexone by mouth 50 mg daily for alcohol use disorder. Continue with trazodone 100 mg daily at bedtime for insomnia and mood. -Thiamine, folate acid and multivitamin for alcohol use. -When necessary Ativan for CIWA. Decreased the frequency of CIWA to every 6 hours. Vital signs stable at this time and received 1 dose of Ativan and past 24 hours. -NRT -not needed as patient does not smoke -Will continue with antibiotics and spirometry for atelectasis and possible pneumonia. Patient states that her cough and shortness of breath have been improving. -SW on board for discharge planning. Patient states that she was just in rehab not too long ago and does not want to go back instead would like to do AA meetings online and do outpatient therapy along with going to spiritism. Likely discharge later on this week.
[2019-08-13] MEDS: ESCITALOPRAM 20 MG TAB PO SCH (20:38)
[2019-08-13] MEDS: traZODone HCL 100 MG TAB PO SCH (20:38)
[2019-08-14] MEDS: LEVOTHYROXINE 100 MCG TAB PO SCH (06:27)
[2019-08-14] MEDS: amLODIPine 5 MG TAB PO SCH (08:16)
[2019-08-14] MEDS: AMOXIC-POT CLAV 500-125 MG 1 EACH TAB PO SCH ×2 (08:16→20:34)
[2019-08-14] MEDS: LISINOPRIL 20 MG TAB PO SCH (08:17)
[2019-08-14] MEDS: FAMOTIDINE 20 MG TAB PO SCH ×2 (08:17→20:35)
[2019-08-14] MEDS: MONTELUKAST 10 MG TAB PO SCH (08:17)
[2019-08-14] MEDS: lamoTRIgine 100 MG TAB PO SCH (08:17)
[2019-08-14] MEDS: GABAPENTIN 300 MG CAP PO SCH ×3 (08:17→20:34)
[2019-08-14] MEDS: FOLIC ACID 1 MG TAB PO SCH (08:17)
[2019-08-14] MEDS: ARIPiprazole 5 MG TAB PO SCH (08:17)
[2019-08-14] MEDS: NALTREXONE HCL 50 MG TAB PO SCH (08:18)
[2019-08-14] MEDS: MULTIVITAMINS, THERA 1 EACH TAB PO SCH (08:18)
[2019-08-14] MEDS: THIAMINE 100 MG TAB PO SCH (08:18)
[2019-08-14] MEDS: TOPIRAMATE 25 MG TAB PO SCH ×2 (08:18→20:35)
[2019-08-14] MEDS: ALBUTEROL INHALER 60 PUFF/8 GM INHALER INHALATION PRN ×2 (08:36→20:35)
[2019-08-14] MEDS: FLUTICASONE 50MCG/SPRAY NASAL 16GM EA NOSTRIL SCH (08:36)
--- NOTE | 2019-08-14 10:32 | P.PN ---
Progress Note - Text Progress Note Date: 08/14/19 Interval History: Patient was seen today after group finished and was agreeable to speak to designer writer in the room. Patient was directable and cooperative during the interview. She stated that she has no complaints and slept well last night. She also states that she did not require any Ativan yesterday that her vital signs appeared to be stable. At this time she is denying any tremors from alcohol withdrawal. She states that her mood has been improving and she is at a "good place" and was thankful for the help that she is receiving here on the unit. She also states that her anxiety has improved. Patient claims that her energy level is fair and that she is attending participated in all the groups and finding them helpful. She states to have a good appetite. At this time patient denies any suicidal or homical ideations, intent or plan. Patient denies any auditory, visual hallucinations and denies any paranoia or delusions. Patient denies any side effects from the medications and has been compliant with meds. Mental Status Exam: General Appearance: Patient appears to be stated age is alert, pleasant, and cooperative. Patient has fair hygiene and fair grooming. Patient has good eye contact. Behavior: Patient is calmly seated without any agitated behavior. Speech: Patient's speech is fluent and nonpressured. Mood/Affect: Mood is improving, affect is congruent Suicidality/Homicidality: Patient denies having any suicidal or homicidal ideation intent or plan. Perceptions: Patient denies any auditory or visual hallucinations. Though content/process: There is no evidence of any delusional thought content and thought process is linear and goal-directed. Memory and concentration: AOX3, grossly intact for the purposes of this session Judgment and insight: Improving mildly Assessment Major depressive disorder Alcohol use disorder, currently in withdrawal Plan: -Patient continues to meet criteria for inpatient psychiatric admission for symptom stabilization and safety. Patient has signed adult voluntary form and medication consent and was placed in patient's chart. -Medications: We'll continue with Abilify 5 mg daily for mood adjunct. Continue with Lexapro 20 mg nightly for mood. Continue with Lamictal 200 mg daily for mood stabilization. Continue naltrexone by mouth 50 mg daily for alcohol use disorder. Continue with trazodone 100 mg daily at bedtime for insomnia and mood. -Patient states that she was receiving monthly naltrexone IM injections from [facility] and will continue to do so after discharge. -Thiamine, folate acid and multivitamin for alcohol use. -Discontinued CIWA at this time. -NRT -not needed as patient does not smoke -Will continue with antibiotics and spirometry for atelectasis and possible pneumonia. Patient states that her cough and shortness of breath have been improving. -SW on board for discharge planning. Patient states that she was just in rehab not too long ago and does not want to go back instead would like to do AA meetings online and do outpatient therapy along with going to jainism. Likely discharge tomorrow back home.
[2019-08-14] MEDS: traZODone HCL 100 MG TAB PO SCH (20:35)
[2019-08-14] MEDS: ESCITALOPRAM 20 MG TAB PO SCH (20:35)
[2019-08-15] MEDS ORDERED: LEVOTHYROXINE 100 MCG TAB PO SCH (06:30)
[2019-08-15] MEDS ORDERED: LEVOTHYROXINE 75 MCG TAB PO SCH (06:30)
[2019-08-15 06:48] VITALS: RESP 16; TEMP 98.6
[2019-08-15] MEDS: AMOXIC-POT CLAV 500-125 MG 1 EACH TAB PO SCH (08:25)
[2019-08-15] MEDS: lamoTRIgine 100 MG TAB PO SCH (08:25)
[2019-08-15] MEDS: NALTREXONE HCL 50 MG TAB PO SCH (08:26)
[2019-08-15] MEDS: GABAPENTIN 300 MG CAP PO SCH ×2 (08:26→15:06)
[2019-08-15] MEDS: MULTIVITAMINS, THERA 1 EACH TAB PO SCH (08:27)
[2019-08-15] MEDS: ARIPiprazole 5 MG TAB PO SCH (08:27)
[2019-08-15] MEDS: LISINOPRIL 20 MG TAB PO SCH (08:27)
[2019-08-15] MEDS: FAMOTIDINE 20 MG TAB PO SCH (08:27)
[2019-08-15] MEDS: TOPIRAMATE 25 MG TAB PO SCH (08:27)
[2019-08-15] MEDS: MONTELUKAST 10 MG TAB PO SCH (08:27)
[2019-08-15] MEDS: THIAMINE 100 MG TAB PO SCH (08:27)
[2019-08-15] MEDS: amLODIPine 5 MG TAB PO SCH (08:27)
[2019-08-15] MEDS: FLUTICASONE 50MCG/SPRAY NASAL 16GM EA NOSTRIL SCH (08:28)
[2019-08-15] MEDS: FOLIC ACID 1 MG TAB PO SCH (08:28)
[2019-08-15 09:17] VITALS: BP 114/65; PULSE 73
--- NOTE | 2019-08-15 09:50 | P.DS ---
Providers Date of admission: 08/09/19 15:04 Expected date of discharge: 08/15/19 Attending physician: Rahul Colón MD Consults: 08/09/19 15:27 Consult Physician Routine Consulting Provider: Karan Huitron Consult Reason/Comments: H&P for mental health admission Do you want consulting provider notified?: Yes Primary care physician: Karan Huitron - Discharge Diagnosis(es) (1) Major depressive disorder Current Visit: Yes Status: Acute Priority: High (2) Alcohol use disorder Current Visit: Yes Status: Acute Priority: Medium Hospital Course: Summary of Admission HPI: Patient is a 58-year-old female with a chronic history of depression and alcohol use who was admitted for difficulties with alcohol dependence and increase in her depression. Patient has been hospitalized multiple times in the past for alcohol use disorder withdrawal and in the context of her passing away and her grieving his loss. The patient has had a lot of grieving issues relating to her 's passing. Patient has been known to be drinking excessively intermittently however she states that in the last 5 days prior to admission she was drinking on a daily basis a pint or possibly more per day. She endorsed poor sleep, motivation and energy and interest. Patient also reported to have significant anxiety however denied any panic symptoms. Patient described feeling hopeless relating to her inability to resist using alcohol. Patient has been on the Vivitrol injections through [facility] which has been helping her. Hospital course: Upon admission to the unit patient was initially depressed, anxious and withdrawing from alcohol. Patient was however directable and agreeable to commence treatment. Patient got along well with other patients on the unit and followed unit protocol. Patient was compliant with the medications and denied any side effects throughout hospital course. Patient was started on Lexapro 20 mg nightly for mood. Patient was also restarted on Abilify ever was decreased down to 5 mg daily as a mood adjunct. Patient was restarted on her home dose of Lamictal 200 mg daily for mood stabilization/depression. Patient was naltrexone by mouth 50 mg daily for alcohol use disorder. Patient has been getting her Vivitrol injections through [facility] on a monthly basis. Patient was also continued on her home dose of trazodone 100 mg nightly for insomnia and mood. Patient spoke of her stressors and engaged in therapy both group and individual. Patient was also seen by medical team for history and physical exam. Patient was found to have atelectasis and possible pneumonia on chest x-ray on admission and was having shortness of breath and coughing productive of sputum. Augmentin was started along with spirometry and patient gradually improved with regards to her respiratory symptoms. Throughout the course of the hospitalization patient gradually improved with regards to mood, anxiety, sleep and became future oriented with improved insight and judgment. On the day of discharge patient denied any suicidal or homicidal ideations intent or plan denied any auditory or visual hallucinations. Patient endorsed wanting to live for her health and family. Patient denied any paranoia and did not endorse any delusions. Patient does have a significant history of substance abuse and was counseled on abstaining from all substances including alcohol and marijuana. At this time patient was offered rehab for her substance use however patient states that she was in rehab not too long ago and would not like to go back at this time, she was agreeable to do outpatient therapy along with AA meetings online along with [facility]. Patient is also agreeable to continue with by mouth naltrexone daily until her [facility] appointment to get put back on the Vivitrol IM for alcohol use disorder. Patient was also counseled on the medications and need for regular compliance and was encouraged to follow-up with their outpatient appointment for mental health and also for primary care. Prior to discharge a family meeting will be arranged by social problems specialist to answer any questions and ensure safety upon discharge. Mental status exam: General Appearance: Patient appears to be stated age is alert, pleasant, and cooperative. Patient is in no acute distress and has fair hygiene and grooming Behavior: Patient is calmly seated without any agitated behavior. Speech: Patient's speech is fluent and nonpressured. Mood/Affect: Patient reports their mood is "good", affect is congruent and euthymic. Suicidality/Homicidality: Patient denies having any suicidal or homicidal ideation intent or plan. Perceptions: Patient denies any auditory or visual hallucinations. Though content/process: There is no evidence of any delusional thought content and thought process is linear and goal-directed. Memory and concentration: AOX3, grossly intact for the purposes of this session. Can spell "WORLD" backwards correctly. Judgment and insight: fair, improved Impression: Major depressive disorder Alcohol use disorder, moderate-severe Plan: -Continue with discharge today as patient has improved and stabilized psychiatrically and is not currently an imminent threat to herself and/or others. -Continue medications: Trazodone 100 mg nightly for mood and insomnia. Lamictal 200 mg daily for mood stabilization/depression. Naltrexone 50 mg daily for alcohol use disorder with a plan to get put back on naltrexone IM at [facility] at her next appointment. Continue with Lexapro 20 mg nightly for mood/anxiety and continue Abilify 5 mg daily for mood adjunct. -Patient to continue on Augmentin abx for pneumonia and continue with spirometry for atelectasis. -Patient was counseled on the need for medication compliance and appropriate follow-up at mental health and also primary care for medical issues. Patient verbalized understanding and agreed. -Social work to arrange for and conduct family meeting to ensure safety upon discharge and answer any questions/concerns. Social work also to arrange for patients follow up appointments with [facility] along with follow up with primary care provider. -Patient counseled on abstaining from recreational drugs and marijuana and alcohol. Was informed/educated on the adverse effects on their physical and mental health. At this time patient was offered rehab for her substance use however patient states that she was in rehab not too long ago and would not like to go back at this time, she was agreeable to do outpatient therapy along with AA meetings online along with going [facility]. Patient is also agreeable to continue with by mouth naltrexone daily until her [facility] appointment to get put back on the Vivitrol IM for alcohol use disorder. -Patient was instructed to return to the hospital or seek immediate medical care if their psychiatric or medical systems do worsen or reoccur. Allergies Allergy/AdvReac Type Severity Reaction Status Date / Time clindamycin Allergy Unknown Rash/Hives Verified 08/09/19 15:49 acetylcysteine Allergy Anaphylaxis Verified 08/09/19 15:49 [From Mucomyst] chlordiazepoxide HCl AdvReac Hallucinati Verified 08/09/19 15:49 [From Librium] ons citalopram [From Celexa] AdvReac Hallucinati Verified 08/09/19 15:49 ons diphenhydramine HCl AdvReac Rapid Verified 08/09/19 15:49 [From Benadryl] Heart Rate Laboratory Results WBC 3.6 k/uL (3.8-10.6) L 08/11/19 07:37 RBC 4.72 m/uL (3.80-5.40) 08/11/19 07:37 Hgb 15.0 gm/dL (11.4-16.0) 08/11/19 07:37 Hct 46.9 % (34.0-46.0) H 08/11/19 07:37 MCV 99.5 fL (80.0-100.0) 08/11/19 07:37 MCH 31.9 pg (25.0-35.0) 08/11/19 07:37 MCHC 32.0 g/dL (31.0-37.0) 08/11/19 07:37 RDW 13.6 % (11.5-15.5) 08/11/19 07:37 Plt Count 171 k/uL (150-450) 08/11/19 07:37 Neutrophils % 55 % 08/11/19 07:37 Lymphocytes % 25 % 08/11/19 07:37 Monocytes % 7 % 08/11/19 07:37 Eosinophils % 7 % 08/11/19 07:37 Basophils % 1 % 08/11/19 07:37 Neutrophils # 2.0 k/uL (1.3-7.7) 08/11/19 07:37 Lymphocytes # 0.9 k/uL (1.0-4.8) L 08/11/19 07:37 Monocytes # 0.3 k/uL (0-1.0) 08/11/19 07:37 Eosinophils # 0.3 k/uL (0-0.7) 08/11/19 07:37 Basophils # 0.1 k/uL (0-0.2) 08/11/19 07:37 Sodium 141 mmol/L (137-145) 08/11/19 07:37 Potassium 5.1 mmol/L (3.5-5.1) 08/11/19 07:37 Chloride 105 mmol/L (98-107) 08/11/19 07:37 Carbon Dioxide 27 mmol/L (22-30) 08/11/19 07:37 Anion Gap 9 mmol/L 08/11/19 07:37 BUN 11 mg/dL (7-17) 08/11/19 07:37 Creatinine 0.88 mg/dL (0.52-1.04) 08/11/19 07:37 Est GFR (CKD-EPI)AfAm 84 (>60 ml/min/1.73 sqM) 08/11/19 07:37 Est GFR (CKD-EPI)NonAf 73 (>60 ml/min/1.73 sqM) 08/11/19 07:37 Glucose 94 mg/dL (74-99) 08/11/19 07:[address] Glu mg/dL 97 08/11/19 07:37 Hemoglobin A1c 5.0 % (4.0-6.0) 08/11/19 07:37 Calcium 10.3 mg/dL (8.4-10.2) H 08/11/19 07:37 Total Bilirubin 0.6 mg/dL (0.2-1.3) 08/11/19 07:37 AST 63 U/L (14-36) H 08/11/19 07:37 ALT 58 U/L (9-52) H 08/11/19 07:37 Alkaline Phosphatase 43 U/L (38-126) 08/11/19 07:37 Total Protein 7.4 g/dL (6.3-8.2) 08/11/19 07:37 Albumin 4.3 g/dL (3.5-5.0) 08/11/19 07:37 Triglycerides 83 mg/dL (<150) 08/11/19 07:37 Cholesterol 232 mg/dL (<200) H 08/11/19 07:37 LDL Cholesterol, Calc 123 mg/dL (0-99) H 08/11/19 07:37 HDL Cholesterol 92 mg/dL (40-60) H 08/11/19 07:37 TSH <0.015 mIU/L (0.465-4.680) L 08/11/19 07:37 Urine Opiates Screen Not Detected (NotDetected) 08/08/19 21:30 Ur Oxycodone Screen Not Detected (NotDetected) 08/08/19 21:30 Urine Methadone Screen Not Detected (NotDetected) 08/08/19 21:30 Ur Propoxyphene Screen Not Detected (NotDetected) 08/08/19 21:30 Ur Barbiturates Screen Not Detected (NotDetected) 08/08/19 21:30 U Tricyclic Antidepress Not Detected (NotDetected) 08/08/19 21:30 Ur Phencyclidine Scrn Not Detected (NotDetected) 08/08/19 21:30 Ur Amphetamines Screen Not Detected (NotDetected) 08/08/19 21:30 U Methamphetamines Scrn Not Detected (NotDetected) 08/08/19 21:30 U Benzodiazepines Scrn Detected (NotDetected) H 08/08/19 21:30 Urine Cocaine Screen Not Detected (NotDetected) 08/08/19 21:30 U Marijuana (THC) Screen Not Detected (NotDetected) 08/08/19 21:30 Vital Signs Temp 98.6 F 08/15/19 06:47 Pulse 73 08/15/19 08:25 Resp 16 08/15/19 06:47 BP 114/65 08/15/19 08:25 Pulse Ox 98 08/11/19 13:30 Patient Condition at Discharge: Stable Plan - Discharge Summary New Discharge Prescriptions: New ARIPiprazole [Abilify] 5 mg PO DAILY 28 Days tab Fluticasone Nasal [place] [Flonase Nasal [place]] 2 spray EA NOSTRIL DAILY spr Ibuprofen [Motrin] 600 mg PO TID PRN tab PRN Reason: Moderate Pain Multivitamins, Thera [Multivitamin (formulary)] 1 each PO DAILY tab Famotidine [Pepcid] 20 mg PO BID 28 Days tab Naltrexone HCl [Revia] 50 mg PO DAILY tab Albuterol Inhaler [Ventolin Hfa Inhaler] 2 puff INHALATION RT-QID PRN puff PRN Reason: Shortness Of Breath Or Wheezing Continue Folic Acid 1 mg PO DAILY #30 Montelukast [Singulair] 10 mg PO DAILY #30 Vivitrol 380mg Er 380 mg IM Q28D lamoTRIgine [LaMICtal] 200 mg PO DAILY 30 Days #30 tablet amLODIPine [Norvasc] 5 mg PO DAILY 30 Days #30 tab Levothyroxine Sodium [Synthroid] 200 mcg PO DAILY 30 Days #30 tablet Topiramate [Topamax] 50 mg PO BID #120 tab Lisinopril [Zestril] 20 mg PO DAILY 30 Days #30 tab Gabapentin [Neurontin] 300 mg PO TID Thiamine [Vitamin B-1] 100 mg PO DAILY Escitalopram [Lexapro] 20 mg PO HS 28 Days #30 tab traZODone HCL 100 mg PO HS 28 Days tab Discontinued ARIPiprazole [Abilify] 10 mg PO DAILY Discharge Medication List Folic Acid 1 mg PO DAILY #30 06/02/17 [Rx] Montelukast [Singulair] 10 mg PO DAILY #30 06/02/17 [Rx] Vivitrol 380mg Er 380 mg IM Q28D 03/28/19 [History] Levothyroxine Sodium [Synthroid] 200 mcg PO DAILY 30 Days #30 tablet 04/03/19 [Rx] Lisinopril [Zestril] 20 mg PO DAILY 30 Days #30 tab 04/03/19 [Rx] Topiramate [Topamax] 50 mg PO BID #120 tab 04/03/19 [Rx] amLODIPine [Norvasc] 5 mg PO DAILY 30 Days #30 tab 04/03/19 [Rx] lamoTRIgine [LaMICtal] 200 mg PO DAILY 30 Days #30 tablet 04/03/19 [Rx] Gabapentin [Neurontin] 300 mg PO TID 04/19/19 [History] Thiamine [Vitamin B-1] 100 mg PO DAILY 05/13/19 [History] ARIPiprazole [Abilify] 5 mg PO DAILY 28 Days tab 08/15/19 [Rx] Albuterol Inhaler [Ventolin Hfa Inhaler] 2 puff INHALATION RT-QID PRN puff 08/15/19 [Rx] Escitalopram [Lexapro] 20 mg PO HS 28 Days #30 tab 08/15/19 [Rx] Famotidine [Pepcid] 20 mg PO BID 28 Days tab 08/15/19 [Rx] Fluticasone Nasal [place] [Flonase Nasal [place]] 2 spray EA NOSTRIL DAILY spr 08/15/19 [Rx] Ibuprofen [Motrin] 600 mg PO TID PRN tab 08/15/19 [Rx] Multivitamins, Thera [Multivitamin (formulary)] 1 each PO DAILY tab 08/15/19 [Rx] Naltrexone HCl [Revia] 50 mg PO DAILY tab 08/15/19 [Rx] traZODone HCL 100 mg PO HS 28 Days tab 08/15/19 [Rx] Follow up Appointment(s)/Referral(s): [facility] [Outside] - 08/20/19 5:00 pm (08-20-19 @ 5:[address] Calvo 08-22-19 @ 12:00 with Ratna Bateman) Karan Huitron MD [Primary Care Provider] - 1-2 days Patient Instructions/Handouts: Depression (DC), Abuse of Alcohol (DC), At-Risk Alcohol Use (DC), Help Prevent Suicide (DC) Activity/Diet/Wound Care/Special Instructions: Activity and diet as tolerated. Avoid the use of street drugs and alcohol. Take all medications as prescribed. When you are in need of refills on your medications please contact you medical provider and/or outpatient psychiatrist to have this done. Please go to shceduled outpatient apt. for aftercare tx. If symptoms return or become worse, call the crisis line at abd /or go to the nearest emergency room for evaluation. Discharge Disposition: HOME SELF-CARE
== END 2019-08-15 17:33 | disposition home or self-care (01) | DRG 885 ==
LOC: EC 20:15 → 3MHU 08-09 15:04
PROVIDERS: ADMIT Psychiatry & Neurology Psychiatry; ATTEND Psychiatry & Neurology Psychiatry
DX: F31.9 Bipolar disorder, unspecified (principal); J18.9 Pneumonia, unspecified organism; F10.239 Alcohol dependence with withdrawal, unspecified; J98.11 Atelectasis; R45.851 Suicidal ideations; E89.0 Postprocedural hypothyroidism; F41.9 Anxiety disorder, unspecified; G47.00 Insomnia, unspecified; I10 Essential (primary) hypertension; I49.5 Sick sinus syndrome; J45.20 Mild intermittent asthma, uncomplicated; Z79.890 Hormone replacement therapy; Z79.899 Other long term (current) drug therapy; Z80.0 Family history of malignant neoplasm of digestive organs; Z80.3 Family history of malignant neoplasm of breast; Z81.1 Family history of alcohol abuse and dependence; Z85.850 Personal history of malignant neoplasm of thyroid; Z91.5 Personal history of self-harm; Z88.1 Allergy status to other antibiotic agents; Z88.8 Allergy status to other drugs, medicaments and biological substances
CPT/HCPCS: 71046; 80053; 80061; 80306; 82075; 83036; 84443; 85025; 96365; 96366; 96375; 96376; 99285

== ENCOUNTER 2019-08-19 19:07 | Emergency (ER) | payer OTHER ==
--- NOTE | 2019-08-19 19:24 | ED ---
Psych HPI <Tere Morton Jay - Last Filed: 08/20/19 08:22> - General Source: RN notes reviewed, Caregiver Limitations: altered mental status (alcohol intoxication) - History of Present Illness MD Complaint: suicidal ideation, feels depressed -: days(s) Associated Psychiatric Symptoms: depression, suicidal ideation, racing thoughts History of same: Yes Quality: constant, getting worse Worsens With: medication Context: recent alcohol abuse Associated Symptoms: insomnia Treatments Prior to Arrival: placed on mental health hold If Self Harm: admits thoughts of self harm <Rakesh Ramsay - Last Filed: 08/20/19 16:27> - General Chief Complaint: Alcohol Stated Complaint: Suicidal Time Seen by Provider: 08/19/19 19:14 - History of Present Illness Initial Comments: This is a 58 female well known to our ED presenting with alcohol intoxication, suicidal thoughts in delaing w the passing of her , patient is sad, crying, and emotional in talking about husbands passing and intoxication, gnosticism members are with her secondary to suicical comments (Rakesh Ramsay) - Related Data Home Medications Medication Instructions Recorded Confirmed Vivitrol 380mg Er 380 mg IM Q28D 03/28/19 08/19/19 Gabapentin [Neurontin] 300 mg PO TID 04/19/19 08/19/19 Thiamine [Vitamin B-1] 100 mg PO DAILY 05/13/19 08/19/19 Previous Rx's Medication Instructions Recorded Folic Acid 1 mg PO DAILY #30 06/02/17 Montelukast [Singulair] 10 mg PO DAILY #30 06/02/17 Levothyroxine Sodium [Synthroid] 200 mcg PO DAILY 30 Days #30 tablet 04/03/19 Lisinopril [Zestril] 20 mg PO DAILY 30 Days #30 tab 04/03/19 Topiramate [Topamax] 50 mg PO BID #120 tab 04/03/19 amLODIPine [Norvasc] 5 mg PO DAILY 30 Days #30 tab 04/03/19 lamoTRIgine [LaMICtal] 200 mg PO DAILY 30 Days #30 tablet 04/03/19 ARIPiprazole [Abilify] 5 mg PO DAILY 28 Days tab 08/15/19 Albuterol Inhaler [Ventolin Hfa 2 puff INHALATION RT-QID PRN puff 08/15/19 Inhaler] Escitalopram [Lexapro] 20 mg PO HS 28 Days #30 tab 08/15/19 Famotidine [Pepcid] 20 mg PO BID 28 Days tab 08/15/19 Fluticasone Nasal [place] [Flonase 2 spray EA NOSTRIL DAILY spr 08/15/19 Nasal [place]] Ibuprofen [Motrin] 600 mg PO TID PRN tab 08/15/19 Multivitamins, Thera [Multivitamin 1 each PO DAILY tab 08/15/19 (formulary)] Naltrexone HCl [Revia] 50 mg PO DAILY tab 08/15/19 traZODone HCL 100 mg PO HS 28 Days tab 08/15/19 LORazepam [Ativan] 0.5 mg PO TID PRN 3 Days #9 tab 08/20/19 Allergies Allergy/AdvReac Type Severity Reaction Status Date / Time clindamycin Allergy Unknown Rash/Hives Verified 08/19/19 19:56 acetylcysteine Allergy Anaphylaxis Verified 08/19/19 19:56 [From Mucomyst] chlordiazepoxide HCl AdvReac Hallucinati Verified 08/19/19 19:56 [From Librium] ons citalopram [From Celexa] AdvReac Hallucinati Verified 08/19/19 19:56 ons diphenhydramine HCl AdvReac Rapid Verified 08/19/19 19:56 [From Benadryl] Heart Rate Review of Systems ROS Other: All systems not noted in ROS Statement are negative. <Tere Morton A - Last Filed: 08/20/19 08:22> ROS Other: All systems not noted in ROS Statement are negative. <Rakesh Ramsay - Last Filed: 08/20/19 16:27> ROS Statement: Those systems with pertinent positive or pertinent negative responses have been documented in the HPI. Past Medical History Past Medical History: Asthma, Cancer, Hypertension, Thyroid Disorder Additional Past Medical History / Comment(s): History of goiter status post thyroidectomy, questionable history of thyroid cancer although this is not clear, bipolar disorder, depression, history of suicidal ideations, history of drug overdose, alcoholism, seasonal rhinitis, psoriasis, breast cysts, history of broken toes in the right foot, hypertension, History of Any Multi-Drug Resistant Organisms: None Reported Past Surgical History: No Surgical Hx Reported Additional Past Surgical History / Comment(s): Thyroidectomy 1999, SKIN NEVI REMOVED Past Anesthesia/Blood Transfusion Reactions: Previous Problems w/ Anesthesia, Postoperative Nausea & Vomiting (PONV) Additional Past Anesthesia/Blood Transfusion Reaction / Comment(s): Pt lives with in their home. They have been together 12 yrs. Pt is normally independent. Pt is an alcoholic. She is feeling more depressed lately and ashamed of her alcoholism. PT STATED SHE IS A BINGE DRINKER AND IS A BLACK OUT DRINKER,THINKS SHE STARTED DRINKING 4-5 DAYS AGO 3 PINTS A DAY AND WHEN COMING DOWN DRANK SUAVE HAIR SPRAY( does not allow alcohol in the home so pt has drinks hand airset molder or hair spray per her ). Pt no longer has a drivers license- she has had 2 DUI's. 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 She is seen at [facility] by Dr. Baez and has a councelor-NICO. She has alot of gnosticism friends. drives her to her appts. Past Psychological History: Anxiety, Bipolar, Depression Smoking Status: Never smoker Past Alcohol Use History: Abuse, Daily, Heavy Past Drug Use History: Unable to Obtain - Past Family History Father Family Medical History: Cancer Additional Family Medical History / Comment(s): Father at age 64 of esophageal cancer. Father was an alcoholic and had cirrhosis of the liver. Mother Family Medical History: Cancer Additional Family Medical History / Comment(s): Mother of breast cancer at age 42yrs. <Rakesh Ramsay - Last Filed: 08/20/19 16:27> General Exam General appearance: alert, in no apparent distress Head exam: Present: atraumatic, normocephalic, normal inspection Eye exam: Present: normal appearance, PERRL, EOMI. Absent: scleral icterus, conjunctival injection, periorbital swelling ENT exam: Present: normal exam, mucous membranes moist Neck exam: Present: normal inspection. Absent: tenderness, meningismus, lymphadenopathy Respiratory exam: Present: normal lung sounds bilaterally. Absent: respiratory distress, wheezes, rales, rhonchi, stridor Cardiovascular Exam: Present: regular rate, normal rhythm, normal heart sounds. Absent: systolic murmur, diastolic murmur, rubs, gallop, clicks GI/Abdominal exam: Present: soft, normal bowel sounds. Absent: distended, tenderness, guarding, rebound, rigid Extremities exam: Present: normal inspection, full ROM, normal capillary refill. Absent: tenderness, pedal edema, joint swelling, calf tenderness Back exam: Present: normal inspection Neurological exam: Present: alert, oriented X3, CN II-XII intact Psychiatric exam: Present: normal affect, normal mood, other (tremulous) Skin exam: Present: warm, dry, intact, normal color. Absent: rash <Tere Morton - Last Filed: 08/20/19 08:22> General appearance: alert, in no apparent distress Head exam: Present: atraumatic, normocephalic, normal inspection Eye exam: Present: normal appearance, PERRL, EOMI. Absent: scleral icterus, conjunctival injection, periorbital swelling ENT exam: Present: normal exam, mucous membranes moist Neck exam: Present: normal inspection. Absent: tenderness, meningismus, lymphadenopathy Respiratory exam: Present: normal lung sounds bilaterally. Absent: respiratory distress, wheezes, rales, rhonchi, stridor Cardiovascular Exam: Present: regular rate, normal rhythm, normal heart sounds. Absent: systolic murmur, diastolic murmur, rubs, gallop, clicks GI/Abdominal exam: Present: soft, normal bowel sounds. Absent: distended, tenderness, guarding, rebound, rigid Extremities exam: Present: normal inspection, full ROM, normal capillary refill. Absent: tenderness, pedal edema, joint swelling, calf tenderness Back exam: Present: normal inspection Neurological exam: Present: alert, oriented X3, CN II-XII intact Psychiatric exam: Present: normal affect, normal mood Skin exam: Present: warm, dry, intact, normal color. Absent: rash <Rakesh Ramsay - Last Filed: 08/20/19 16:27> Course <Rakesh Ramsay - Last Filed: 08/20/19 16:27> Vital Signs 08/19/19 08/20/19 19:17 06:40 Temperature 98 F 98.3 F Pulse Rate 88 95 Respiratory 18 18 Rate Blood Pressure 130/82 135/80 O2 Sat by Pulse 96 99 Oximetry - Reevaluation(s) Reevaluation #1: patient severely intoxicated will require sobering up prior to psychiatric evalu ation (Rakesh Ramsay) Medical Decision Making <Tere Morton Jay - Last Filed: 08/20/19 08:22> - Medical Decision Making The patient was signed out to me. She achieved sobriety and was evaluated by EPS. Patient reports no suicidal ideations. They did a complete safety plan with her and notified me that the patient was ready for discharge. I did evaluate the patient myself. She appears tremulous in the room. Patient is clinically sober and capable of making her own decisions at this time. She has appropriate mood and judgment. She states that she does not remember saying that she was suicidal. Patient denies suicidal ideations at this time. Also denies homicidal ideations and hallucinations. I did recommend treatment for the patient's tremulous state. I did provide her with 1 mg of Ativan by mouth. I discussed alcohol cessation. The patient reports previously being through rehab. States that she now holds a job and has motivation to become sober. She denies history of withdrawal seizures. I discussed using Librium at home for withdrawal symptoms. Patient reports that she had hallucinations while using this medication. States she has been on Ativan and this helped her. I will give the patient limited supply. Side effect profile discussed. The patient is to not work or drive while she is taking it. The patient understood this. Medication was E-prescribed. Patient does have a follow-up appointment with [facility] later today. If she has any new or worsening symptoms she should return to the emergency room. The patient was discharged home in stable condition (Tere Morton) Disposition Is patient prescribed a controlled substance at d/c from ED?: Yes When asked, does pt state using other controlled substances?: No If prescribed controlled substance>3 days was MAPS reviewed?: Prescribed <3 Days Time of Disposition: 08:05 <Tere Morton - Last Filed: 08/20/19 08:22> <Rakesh Ramsay - Last Filed: 08/20/19 16:27> Clinical Impression: Depression, Alcoholism /alcohol abuse Disposition: HOME SELF-CARE Condition: Stable Instructions (If sedation given, give patient instructions): Abuse of Alcohol (ED) Additional Instructions: Please follow-up at your scheduled mental health visit later today. Take the Ativan as directed. Do not work or drive while taking the medications. Abstain from drinking alcohol. Return to the emergency room for any new or worsening symptoms Prescriptions: LORazepam [Ativan] 0.5 mg PO TID PRN 3 Days #9 tab PRN Reason: Alcohol Withdrawal Referrals: Karan Huitron MD [Primary Care Provider] - 1-2 days
[2019-08-19 19:26] VITALS: RESP 18
[2019-08-20 06:41] VITALS: BP 135/80; PULSE 95; TEMP 98.3
[2019-08-20] MEDS ORDERED: LORazepam 1 MG TAB PO STA (08:00)
== END 2019-08-20 08:14 | disposition home or self-care (01) ==
LOC: EC 19:07
DX: F32.9 Major depressive disorder, single episode, unspecified (principal); F10.20 Alcohol dependence, uncomplicated; Z88.1 Allergy status to other antibiotic agents; Z88.8 Allergy status to other drugs, medicaments and biological substances; Z79.899 Other long term (current) drug therapy; Z85.850 Personal history of malignant neoplasm of thyroid
CPT/HCPCS: 82075; 99285

== ENCOUNTER 2023-01-18 12:49 | Inpatient (IN) | payer OTHER ==
[2023-01-18] MEDS ORDERED: ASPIRIN 81 MG PO STA (12:58)
[2023-01-18] MEDS ORDERED: NITROGLYCERIN OINT 1 INCH/GM PACKET TOPICAL STA (12:58)
--- NOTE | 2023-01-18 13:06 | ED ---
General Adult HPI - General Stated complaint: Alcohol Withdrawal Time Seen by Provider: 01/18/23 12:51 Source: patient, EMS, RN notes reviewed, old records reviewed, Caregiver Limitations: no limitations - History of Present Illness Initial comments: Patient is a pleasant 62-year-old female presenting to the emergency department with concerns for chest discomfort. Discomfort is mild and feels like tig htness. Patient also has some mild associated dyspnea. Patient is trying to quit alcohol and trying to get in to [place]. Patient was at [facility] and advised to come to the emergency department. Patient has had similar symptoms previously when trying to get off alcohol. Patient does admit to drinking some hairspray earlier today. Patient has done this in the past as well. - Related Data Home Medications Medication Instructions Recorded Confirmed Amoxic-Pot Clav 875-125Mg 1 tab PO BID 01/14/23 01/14/23 [Augmentin 875-125] Budesonide/Formoterol Fumarate 2 puff INHALATION RT-BID 01/14/23 01/14/23 [Symbicort 160-4.5 Mcg Inhaler] Levothyroxine Sodium [Synthroid] 125 mcg PO DAILY 01/14/23 01/14/23 Previous Rx's Medication Instructions Recorded Folic Acid 1 mg PO DAILY 30 Days #30 tab 12/15/22 Thiamine [Vitamin B-1] 100 mg PO DAILY 30 Days #30 tab 12/15/22 ARIPiprazole [Abilify] 10 mg PO DAILY 30 Days #30 tab 12/28/22 Acamprosate Calcium [Campral] 666 mg PO TID 15 Days #90 tab 12/28/22 Escitalopram [Lexapro] 20 mg PO DAILY 30 Days #30 tab 12/28/22 lamoTRIgine [LaMICtal] 150 mg PO DAILY 30 Days #45 tab 12/28/22 traZODone HCL [Desyrel] 100 mg PO HS 30 Days #30 tab 12/28/22 Allergies Allergy/AdvReac Type Severity Reaction Status Date / Time clindamycin Allergy Unknown Rash/Hives Verified 01/14/23 15:04 acetylcysteine AdvReac Anaphylaxis Verified 01/18/23 13:06 [From Mucomyst] citalopram [From Celexa] AdvReac Hallucinati Verified 01/14/23 15:04 ons diphenhydramine HCl AdvReac Rapid Verified 01/14/23 15:04 [From Benadryl] Heart Rate Review of Systems ROS Statement: Those systems with pertinent positive or pertinent negative responses have been documented in the HPI. ROS Other: All systems not noted in ROS Statement are negative. Constitutional: Denies: fever Eyes: Denies: as per HPI ENT: Denies: ear pain Respiratory: Reports: as per HPI, dyspnea. Denies: cough Cardiovascular: Reports: as per HPI, chest pain Endocrine: Denies: fatigue Gastrointestinal: Denies: abdominal pain Genitourinary: Denies: dysuria Musculoskeletal: Denies: back pain Skin: Denies: rash Neurological: Denies: weakness Past Medical History Past Medical History: Asthma, Cancer, Hypertension, Thyroid Disorder Additional Past Medical History / Comment(s): History of goiter status post thyroidectomy, questionable history of thyroid cancer although this is not clear, bipolar disorder, depression, history of suicidal ideations, history of drug overdose, alcoholism, seasonal rhinitis, psoriasis, breast cysts, history of broken toes in the right foot, hypertension, History of Any Multi-Drug Resistant Organisms: None Reported Past Surgical History: No Surgical Hx Reported Additional Past Surgical History / Comment(s): Thyroidectomy 1999, SKIN NEVI REMOVED Past Anesthesia/Blood Transfusion Reactions: Previous Problems w/ Anesthesia, Postoperative Nausea & Vomiting (PONV) Additional Past Anesthesia/Blood Transfusion Reaction / Comment(s): Pt lives with in their home. They have been together 12 yrs. Pt is normally independent. Pt is an alcoholic. She is feeling more depressed lately and ashamed of her alcoholism. 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 Pt no longer has a drivers license- she has had 2 DUI's. 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 She is seen at [facility] by Dr. Baez and has a councelor-NICO. She has alot of spiritism friends. drives her to her appts. Past Psychological History: Anxiety, Bipolar, Depression Smoking Status: Never smoker Past Alcohol Use History: Abuse, Daily, Heavy Past Drug Use History: None Reported - Past Family History Father Family Medical History: Cancer Additional Family Medical History / Comment(s): Father at age 64 of esophageal cancer. Father was an alcoholic and had cirrhosis of the liver. Mother Family Medical History: Cancer Additional Family Medical History / Comment(s): Mother of breast cancer at age 42yrs. General Exam Limitations: no limitations General appearance: alert, in no apparent distress Head exam: Present: normocephalic Eye exam: Present: normal appearance Neck exam: Present: normal inspection Respiratory exam: Present: normal lung sounds bilaterally. Absent: chest wall tenderness Cardiovascular Exam: Present: regular rate, normal rhythm Expanded Peripheral pulses: 2+: Radial (R), Radial (L), Posterior Tibialis (R), Posterior Tibialis (L), Dorsalis Pedis (R), Dorsalis Pedis (L) GI/Abdominal exam: Present: soft. Absent: distended, tenderness Extremities exam: Present: normal inspection. Absent: pedal edema, calf tenderness Neurological exam: Present: alert Psychiatric exam: Present: normal affect, normal mood Skin exam: Present: normal color Course Vital Signs 01/18/23 13:02 Temperature 98.2 F Pulse Rate 75 Respiratory 16 Rate Blood Pressure 132/78 O2 Sat by Pulse 97 Oximetry EKG Findings - EKG Results: EKG: interpreted by ERMD (Left axis. LVH criteria.), sinus rhythm, normal ST/T Medical Decision Making - Medical Decision Making Was pt. sent in by a medical professional or institution (, PA, AREA OPERATIONS DIRECTOR, urgent care, hospital, or longterm...) When possible be specific @ -Patient was sent by [facility]. Did you speak to anyone other than the patient for history (EMS, parent, family, police, friend...)? What history was obtained from this source @ -EMS helps provide history. Did you review nursing and triage notes (agree or disagree)? Why? @ -I reviewed and agree with nursing and triage notes Were old charts reviewed (outside hosp., previous admission, EMS record, old EKG, old radiological studies, urgent care reports/EKG's, longterm records)? Report findings @ -No old charts were reviewed Differential Diagnosis (chest pain, altered mental status, abdominal pain women, abdominal pain men, vaginal bleeding, weakness, fever, dyspnea, syncope, headache, dizziness, GI bleed, back pain, seizure, CVA, palpatations, mental health)? @ -Differential Chest Pain: Stable Angina, Unstable Angina, STEMI, NSTEMI Aortic Dissection, Pneumothorax, Musculoskeletal, Esophageal Spasm GERD, Cholecystitis, Pancreatitis, Zoster, this is not meant to be an all-inclusive list. EKG interpreted by me (3pts min.). @ -As above X-rays interpreted by me (1pt min.). @ -Chest x-ray reveals no acute cardiopulmonary process. Please see report by radiologist. CT interpreted by me (1pt min.). @ -None done U/S interpreted by me (1pt. min.). @ -None done What testing was considered but not performed or refused? (CT, X-rays, U/S, labs)? Why? @ -None What meds were considered but not given or refused? Why? @ -None Did you discuss the management of the patient with other professionals (professionals i.e. , PA, AREA OPERATIONS DIRECTOR, lab, RT, psych nurse, manager social, milling machine operator, teacher, employee service officer, porter sample case)? Give summary @ -Case was discussed with Dr. Huitron who states he no longer sees this patient and should be city call patient. Case was discussed with Dr. Jacome, who will admit covering hospital call. Was smoking cessation discussed for >3mins.? @ -No Was critical care preformed (if so, how long)? @ -No Were there social determinants of health that impacted care today? How? (Homelessness, low income, unemployed, alcoholism, drug addiction, transportatio n, low edu. Level, literacy, decrease access to med. care, fpc, rehab)? @ -No Was there de-escalation of care discussed even if they declined (Discuss DNR or withdrawal of care, Hospice)? DNR status @ -No What co-morbidities impacted this encounter? (DM, HTN, Smoking, COPD, CAD, Cancer, CVA, ARF, Chemo, Hep., AIDS, mental health diagnosis, sleep apnea, morbid obesity)? @ -None Was patient admitted / discharged? Hospital course, mention meds given and route, prescriptions, significant lab abnormalities, going to OR and other pertinent info. @ -Patient reevaluated and resting comfortably in bed. Patient updated on results and plan. Patient will be admitted. Admission orders started. Undiagnosed new problem with uncertain prognosis? @ -No Drug Therapy requiring intensive monitoring for toxicity (Heparin, Nitro, Insulin, Cardizem)? @ -No Were any procedures done? @ -No Diagnosis/symptom? @ -Chest pain, alcohol intoxication Acute, or Chronic, or Acute on Chronic? @ -Acute, acute Uncomplicated (without systemic symptoms) or Complicated (systemic symptoms)? @ -default Side effects of treatment? @ -No Exacerbation, Progression, or Severe Exacerbation? @ -No Poses a threat to life or bodily function? How? (Chest pain, [place], DE, pneumonia, PE, COPD, DKA, ARF, appy, cholecystitis, CVA, Diverticulitis, Homicidal, Suicidal, threat to staff... and all critical care pts) @ -No - Lab Data Result diagrams: 01/18/23 13:08 01/18/23 13:08 Lab Results 01/18/23 01/18/23 01/18/23 Range/Units 13:08 13:08 13:08 WBC 5.4 (3.8-10.6) k/uL RBC 3.97 (3.80-5.40) m/uL Hgb 13.2 (11.4-16.0) gm/dL Hct 38.4 (34.0-46.0) % MCV 96.8 (80.0-100.0) fL MCH 33.2 (25.0-35.0) pg MCHC 34.3 (31.0-37.0) g/dL RDW 13.9 (11.5-15.5) % Plt Count 181 (150-450) k/uL MPV 8.2 Neutrophils % 85 % Lymphocytes % 11 % Monocytes % 3 % Eosinophils % 0 % Basophils % 0 % Neutrophils # 4.6 (1.3-7.7) k/uL Lymphocytes # 0.6 L (1.0-4.8) k/uL Monocytes # 0.1 (0-1.0) k/uL Eosinophils # 0.0 (0-0.7) k/uL Basophils # 0.0 (0-0.2) k/uL PT 10.1 (9.0-12.0) sec INR 0.9 (<1.2) APTT 21.3 L (22.0-30.0) sec D-Dimer 0.50 (<0.60) mg/L FEU Sodium 143 (137-145) mmol/L Potassium 3.7 (3.5-5.1) mmol/L Chloride 109 H (98-107) mmol/L Carbon Dioxide 21 L (22-30) mmol/L Anion Gap 13 mmol/L BUN 11 (7-17) mg/dL Creatinine 0.57 (0.52-1.04) mg/dL Est GFR (CKD-EPI)AfAm >90 (>60 ml/min/1.73 sqM) Est GFR (CKD-EPI)NonAf >90 (>60 ml/min/1.73 sqM) Glucose 142 H (74-99) mg/dL Calcium 9.5 (8.4-10.2) mg/dL Magnesium 1.7 (1.6-2.3) mg/dL Total Bilirubin 0.3 (0.2-1.3) mg/dL AST 46 H (14-36) U/L ALT 47 H (4-34) U/L Alkaline Phosphatase 46 (38-126) U/L Troponin I (0.000-0.034) ng/mL NT-Pro-B Natriuret Pep pg/mL Total Protein 7.6 (6.3-8.2) g/dL Albumin 4.5 (3.5-5.0) g/dL Amylase 38 (30-110) U/L Lipase 59 (23-300) U/L Serum Alcohol 209 H* mg/dL 01/18/23 01/18/23 Range/Units 13:08 13:08 WBC (3.8-10.6) k/uL RBC (3.80-5.40) m/uL Hgb (11.4-16.0) gm/dL Hct (34.0-46.0) % MCV (80.0-100.0) fL MCH (25.0-35.0) pg MCHC (31.0-37.0) g/dL RDW (11.5-15.5) % Plt Count (150-450) k/uL MPV Neutrophils % % Lymphocytes % % Monocytes % % Eosinophils % % Basophils % % Neutrophils # (1.3-7.7) k/uL Lymphocytes # (1.0-4.8) k/uL Monocytes # (0-1.0) k/uL Eosinophils # (0-0.7) k/uL Basophils # (0-0.2) k/uL PT (9.0-12.0) sec INR (<1.2) APTT (22.0-30.0) sec D-Dimer (<0.60) mg/L FEU Sodium (137-145) mmol/L Potassium (3.5-5.1) mmol/L Chloride (98-107) mmol/L Carbon Dioxide (22-30) mmol/L Anion Gap mmol/L BUN (7-17) mg/dL Creatinine (0.52-1.04) mg/dL Est GFR (CKD-EPI)AfAm (>60 ml/min/1.73 sqM) Est GFR (CKD-EPI)NonAf (>60 ml/min/1.73 sqM) Glucose (74-99) mg/dL Calcium (8.4-10.2) mg/dL Magnesium (1.6-2.3) mg/dL Total Bilirubin (0.2-1.3) mg/dL AST (14-36) U/L ALT (4-34) U/L Alkaline Phosphatase (38-126) U/L Troponin I <0.012 (0.000-0.034) ng/mL NT-Pro-B Natriuret Pep 69 pg/mL Total Protein (6.3-8.2) g/dL Albumin (3.5-5.0) g/dL Amylase (30-110) U/L Lipase (23-300) U/L Serum Alcohol mg/dL Disposition Clinical Impression: Chest pain, Alcohol intoxication Disposition: ADMITTED IP TO THIS HOSP Is patient prescribed a controlled substance at d/c from ED?: No Time of Disposition: 15:22
[2023-01-18 13:18] LABS: Basophils % (A) 0 %; Eosinophils % (A) 0 %; HCT 38.4 % (34.0-46.0); HGB 13.2 gm/dL (11.4-16.0); Lymphocytes # (A) 0.6 k/uL (1.0-4.8); Lymphocytes % (A) 11 %; MCH 33.2 pg (25.0-35.0); MCHC 34.3 g/dL (31.0-37.0); MCV 96.8 fL (80.0-100.0); Mean Platelet Volume 8.2; Monocytes # (A) 0.1 k/uL (0-1.0); Monocytes % (A) 3 %; Neutrophils # (A) 4.6 k/uL (1.3-7.7); Neutrophils % (A) 85 %; Platelet Count 181 k/uL (150-450); RBC 3.97 m/uL (3.80-5.40); RDW 13.9 % (11.5-15.5); WBC 5.4 k/uL (3.8-10.6)
[2023-01-18 13:40] LABS: INR 0.9 (<1.2); Prothrombin Time 10.1 sec (9.0-12.0)
[2023-01-18 13:41] LABS: Partial Thromboplastin Time 21.3 sec (22.0-30.0)
--- NOTE | 2023-01-18 13:59 | XR ---
EXAMINATION TYPE: XR chest 2V DATE OF EXAM: 01/18/2023 1:46 PM COMPARISON: Chest radiographs from 01/14/2023, CT chest 01/14/2023 TECHNIQUE: XR chest 2V Frontal and lateral views of the chest. CLINICAL INDICATION:Female, 62 years old with history of Chest Pain; FINDINGS: Lungs/Pleura: There is no evidence of pleural effusion, focal consolidation, or pneumothorax. Stable right basilar 4 cm circumscribed mass. Pulmonary vascularity: Unremarkable. Heart/mediastinum: Cardiomediastinal silhouette is unremarkable. Musculoskeletal: No acute osseous pathology. IMPRESSION: 1. No acute cardiopulmonary disease/process. 2. Stable right basilar 4 cm circumscribed mass seen on prior CT chest 01/14/2023. This appears to re present a Bochdalek hernia containing a portion of the liver on CT.
[2023-01-18 14:00] LABS: ALT 47 U/L (4-34); AST 46 U/L (14-36); African American GFR (CKD) >90 (>60 ml/min/1.73 sqM); Albumin 4.5 g/dL (3.5-5.0); Alkaline Phosphatase 46 U/L (38-126); Amylase 38 U/L (30-110); Anion Gap 13 mmol/L; Blood Urea Nitrogen 11 mg/dL (7-17); Calcium 9.5 mg/dL (8.4-10.2); Carbon Dioxide 21 mmol/L (22-30); Chloride 109 mmol/L (98-107); Glucose 142 mg/dL (74-99); Lipase 59 U/L (23-300); Magnesium 1.7 mg/dL (1.6-2.3); Non-African American GFR(CKD) >90 (>60 ml/min/1.73 sqM); Potassium 3.7 mmol/L (3.5-5.1); Sodium 143 mmol/L (137-145); Total Bilirubin 0.3 mg/dL (0.2-1.3); Total Protein 7.6 g/dL (6.3-8.2)
[2023-01-18 14:14] LABS: Alcohol 209 mg/dL
[2023-01-18] MEDS ORDERED: NITROGLYCERIN SL TABS 0.4 MG TAB SUBLINGUAL PRN (15:23)
[2023-01-18] MEDS ORDERED: LORazepam 1 MG TAB PO PRN ×2 (15:24)
[2023-01-18] MEDS ORDERED: LORazepam 0.5 MG TAB PO PRN (15:24)
[2023-01-18] MEDS ORDERED: LORazepam 2 MG/ML INJ IV PRN (15:24)
[2023-01-18] MEDS ORDERED: IBUPROFEN 400 MG TAB PO STA (15:41)
[2023-01-18] MEDS: NITROGLYCERIN OINT 1 INCH/GM PACKET TOPICAL SCH ×2 (18:33→23:10)
[2023-01-18] MEDS: LORazepam 1 MG TAB PO PRN (21:38)
[2023-01-18] MEDS ORDERED: ALBUTEROL NEBULIZED 2.5 MG/3 ML INHALATION PRN (22:49)
[2023-01-18] MEDS: HEPARIN SODIUM,PORCINE/PF 5,000 UNIT/0.5 ML SYRINGE SQ SCH (23:10)
[2023-01-18] MEDS: traZODone HCL 100 MG TAB PO SCH (23:11)
[2023-01-18] MEDS: SODIUM CHLORIDE 0.9% 1,000 ML IV SCH (23:11)
--- NOTE | 2023-01-19 00:59 | P.HPIM ---
History of Present Illness H&P Date: 01/18/23 Chief Complaint: Chest tightness Patient is a 60-year-old female with known history of asthma, daily alcohol use, hypothyroidism, hypertension, history of goiter status post thyroidectomy, history of suicidal ideation and prior history of intoxication presents to ER due to complaints of generalized shakiness and withdrawal symptoms. Patient states that she also felt chest discomfort mainly tightness in the left retrosternal region. Associate with mild shortness of breath. Patient is trying to quit alcohol and call her counselor who recommended to go to ER. Patient does drink about 3 pints of alcohol a day. When coming to the hospital she drank Suave hairspray today. Chest x-ray showed no acute cardiopulmonary process/changes. Stable right basilar 4 cm circumscribed mass seen on prior CT 01/14/2023. This appears to be represent Bochdalek hernia containing a portion of the liver on CT. EKG showed sinus rhythm with right patient supraventricular premature complexes. Laboratory data showed D-dimer 0.5 sodium 143 potassium 3.7, chloride 109 bicarb is 21 BUN 11 and creatinine 0.57 and blood sugar is 142, AST 46 ALT 47 alk phos 46 and troponin x3 negative and serum alcohol level was 209 lipase level is 59 proBNP 69 Review of Systems Complete review of systems could not be obtained from the patient except as per HPI ROS unobtainable: due to mental status Past Medical History Past Medical History: Asthma, Cancer, Hypertension, Thyroid Disorder Additional Past Medical History / Comment(s): History of goiter status post thyroidectomy, questionable history of thyroid cancer although this is not clear, bipolar disorder, depression, history of suicidal ideations, history of drug overdose, alcoholism, seasonal rhinitis, psoriasis, breast cysts, history of broken toes in the right foot, hypertension, History of Any Multi-Drug Resistant Organisms: None Reported Past Surgical History: No Surgical Hx Reported Additional Past Surgical History / Comment(s): Thyroidectomy 1999, SKIN NEVI REMOVED Past Anesthesia/Blood Transfusion Reactions: Previous Problems w/ Anesthesia, Postoperative Nausea & Vomiting (PONV) Additional Past Anesthesia/Blood Transfusion Reaction / Comment(s): patient states she is homeless. Pt is normally independent. Pt is an alcoholic. She is feeling more depressed lately and ashamed of her alcoholism. PT STATED SHE IS A BINGE DRINKER AND IS A BLACK OUT DRINKER,THINKS SHE STARTED DRINKING 4-5 DAYS AGO 3 PINTS A DAY AND WHEN COMING DOWN DRANK SUAVE HAIR SPRAY Pt no longer has a drivers license- she has had 2 DUI's. 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 She is seen at [facility]. Past Psychological History: Anxiety, Bipolar, Depression Additional Psychological History / Comment(s): patient states she is homeless. Pt is normally independent. Pt is an alcoholic. She is feeling more depressed lately and ashamed of her alcoholism. Pt states she drinks a pint a day and today drank half a bottle of hairspray. Pt no longer has a drivers license- she has had 2 DUI's. 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 She is seen at [facility]. Smoking Status: Never smoker Past Alcohol Use History: Abuse, Daily, Heavy Additional Past Alcohol Use History / Comment(s): Pt agrees she is an alcoholic for greater than 20 years and comes from a family hx of abuse. Past Drug Use History: None Reported - Past Family History Father Family Medical History: Cancer Additional Family Medical History / Comment(s): Father at age 64 of esophageal cancer. Father was an alcoholic and had cirrhosis of the liver. Mother Family Medical History: Cancer Additional Family Medical History / Comment(s): Mother of breast cancer at age 42yrs. Medications and Allergies Home Medications Medication Instructions Recorded Confirmed Type Folic Acid 1 mg PO DAILY 30 Days #30 tab 12/15/22 01/18/23 Rx Thiamine [Vitamin B-1] 100 mg PO DAILY 30 Days #30 tab 12/15/22 01/18/23 Rx ARIPiprazole [Abilify] 10 mg PO DAILY 30 Days #30 tab 12/28/22 01/18/23 Rx Acamprosate Calcium [Campral] 666 mg PO TID 15 Days #90 tab 12/28/22 01/18/23 Rx Escitalopram [Lexapro] 20 mg PO DAILY 30 Days #30 tab 12/28/22 01/18/23 Rx lamoTRIgine [LaMICtal] 150 mg PO DAILY 30 Days #45 tab 12/28/22 01/18/23 Rx traZODone HCL [Desyrel] 100 mg PO HS 30 Days #30 tab 12/28/22 01/18/23 Rx Budesonide/Formoterol Fumarate 2 puff INHALATION RT-BID 01/14/23 01/18/23 History [Symbicort 160-4.5 Mcg Inhaler] Levothyroxine Sodium [Synthroid] 125 mcg PO DAILY 01/14/23 01/18/23 History Allergies Allergy/AdvReac Type Severity Reaction Status Date / Time clindamycin Allergy Unknown Rash/Hives Verified 01/14/23 15:04 acetylcysteine AdvReac Anaphylaxis Verified 01/18/23 13:06 [From Mucomyst] citalopram [From Celexa] AdvReac Hallucinati Verified 01/14/23 15:04 ons diphenhydramine HCl AdvReac Rapid Verified 01/14/23 15:04 [From Benadryl] Heart Rate Physical Exam Vitals: Vital Signs Temp Pulse Pulse Resp BP BP Pulse Ox 01/18/23 21:30 97.7 F 84 18 136/74 96 01/18/23 19:52 79 27 H 108/72 95 01/18/23 18:30 75 18 116/69 01/18/23 16:54 74 18 126/73 01/18/23 15:32 81 18 131/92 01/18/23 13:02 98.2 F 75 16 132/78 97 Intake and Output 01/18/23 01/18/23 01/18/23 06:59 14:59 22:59 Other: Weight 78.925 kg 78.925 kg PHYSICAL EXAMINATION: Patient is lying in the bed , mild acute distress, awake alert and oriented but anxious and shaky... HEENT: Normocephalic. Neck is supple. Pupils reactive. Nostrils clear. Oral cavity is moist. Neck reveals no JVD, carotid bruits, or thyromegaly. CHEST EXAMINATION: Trachea is central. Symmetrical expansion. Lung zaman clear to auscultation and percussion. CARDIAC: Normal S1, S2 with no gallops. No murmurs ABDOMEN: Soft. Bowel sounds present. Nontender. No organomegaly. No abdominal bruits. Extremities: reveal no edema. No clubbing or cyanosis Neurologically awake, alert, oriented x3 with well-coordinated movements. No focal deficits noted Skin: No rash or skin lesions. Psychiatric: Coperative. Nonsuicidal, anxious. Denies any suicidal ideation. Musculoskeletal: No joint swelling or deformity. Normal range of motion. Results CBC & Chem 7: 01/18/23 13:08 01/18/23 13:08 Labs: Abnormal Lab Results - Last 24 Hours (Table) 01/18/23 01/18/23 01/18/23 Range/Units 13:08 13:08 13:08 Lymphocytes # 0.6 L (1.0-4.8) k/uL APTT 21.3 L (22.0-30.0) sec Chloride 109 H (98-107) mmol/L Carbon Dioxide 21 L (22-30) mmol/L Glucose 142 H (74-99) mg/dL AST 46 H (14-36) U/L ALT 47 H (4-34) U/L Serum Alcohol 209 H* mg/dL Thrombosis Risk Factor Assmnt - DVT/VTE Prophylaxis DVT/VTE Prophylaxis: Pharmacologic Prophylaxis ordered - Choose All That Apply Any of the Below Risk Factors Present?: Yes Each Factor Represents 1 point: Obesity (BMI >25) Other Risk Factors: Yes Each Risk Factor Represents 2 Points: Age 61-74 years Other congenital or acquired thrombophilia - If yes, enter type in comment: No Thrombosis Risk Factor Assessment Total Risk Factor Score: 3 Thrombosis Risk Factor Assessment Level: Moderate Risk Assessment and Plan Assessment: Chest discomfort/tightness. Ruled out ACS. Likely GI related and withdrawal sy mptoms.. Acute alcohol intoxication Acute alcohol withdrawal symptoms Severe alcohol abuse on daily basis History of prior admissions with psychiatric unit and alcohol intoxication. Hypothyroidism Hypertension Asthma Anxiety/depression bipolar disorder DVT prophylaxis Plan: Patient will be started on IV hydration and alcohol withdrawal protocol. Continue telemetry monitoring. Serial troponin x3 negative. Continue with PPI and home medications. Follow-up closely. Time with Patient: Greater than 30
[2023-01-19] MEDS: LEVOTHYROXINE 125 MCG TAB PO SCH (05:27)
[2023-01-19] MEDS: PANTOPRAZOLE 40 MG TABLET PO SCH (05:27)
[2023-01-19] MEDS: NITROGLYCERIN OINT 1 INCH/GM PACKET TOPICAL SCH (05:27)
[2023-01-19 07:34] LABS: Basophils % (A) 0 %; Eosinophils % (A) 1 %; HCT 35.4 % (34.0-46.0); HGB 12.1 gm/dL (11.4-16.0); Lymphocytes # (A) 1.4 k/uL (1.0-4.8); Lymphocytes % (A) 25 %; MCH 33.6 pg (25.0-35.0); MCHC 34.1 g/dL (31.0-37.0); MCV 98.5 fL (80.0-100.0); Mean Platelet Volume 9.2; Monocytes # (A) 0.3 k/uL (0-1.0); Monocytes % (A) 5 %; Neutrophils # (A) 3.8 k/uL (1.3-7.7); Neutrophils % (A) 67 %; Platelet Count 160 k/uL (150-450); RDW 14.3 % (11.5-15.5); WBC 5.7 k/uL (3.8-10.6)
[2023-01-19 07:50] LABS: African American GFR (CKD) >90 (>60 ml/min/1.73 sqM); Anion Gap 6 mmol/L; Blood Urea Nitrogen 17 mg/dL (7-17); Calcium 8.8 mg/dL (8.4-10.2); Carbon Dioxide 26 mmol/L (22-30); Chloride 107 mmol/L (98-107); Glucose 88 mg/dL (74-99); Non-African American GFR(CKD) >90 (>60 ml/min/1.73 sqM); Potassium 4.1 mmol/L (3.5-5.1); Sodium 139 mmol/L (137-145)
[2023-01-19] MEDS: SYMBICORT 160-4.5 MCG INHALER INHALATION SCH ×2 (08:25→20:20)
[2023-01-19] MEDS: ALBUTEROL HFA INHALER INHALATION PRN ×3 (08:25→20:20)
[2023-01-19] MEDS ORDERED: FOLIC ACID 1 MG TAB PO SCH (09:00)
[2023-01-19] MEDS ORDERED: THIAMINE 100 MG TAB PO SCH (09:00)
[2023-01-19] MEDS: HEPARIN SODIUM,PORCINE/PF 5,000 UNIT/0.5 ML SYRINGE SQ SCH ×3 (09:17→23:19)
[2023-01-19] MEDS: ESCITALOPRAM 20 MG TAB PO SCH (09:17)
[2023-01-19] MEDS: MULTIVITAMINS, THERA 1 EACH TAB PO SCH (09:18)
[2023-01-19] MEDS: lamoTRIgine 100 MG TAB PO SCH (09:18)
[2023-01-19] MEDS: ASPIRIN 325 MG TAB PO SCH (09:18)
[2023-01-19] MEDS: ARIPiprazole 10 MG TAB PO SCH (09:18)
[2023-01-19] MEDS: THIAMINE 100 MG TAB PO SCH (09:19)
[2023-01-19] MEDS: LORazepam 1 MG TAB PO PRN (09:19)
[2023-01-19] MEDS: FOLIC ACID 1 MG TAB PO SCH (09:19)
[2023-01-19] MEDS: METOPROLOL TARTRATE 12.5 MG TAB PO SCH ×2 (09:24→20:40)
--- NOTE | 2023-01-19 09:59 | CONS ---
CONSULTATION HISTORY OF PRESENT ILLNESS: This is a 62-year-old lady, who has been in the hospital recently and was discharged just 2 days ago. She has history of alcoholism, mental health issues. She comes into the hospital intoxicated with alcohol level of more than 200 and complained of some epigastric and lower chest discomfort and therefore, I was asked to see her. Her troponin levels are unremarkable. Her pain is very atypical. She has been drinking heavily. She has multiple comorbid conditions and she seeks admission into [place]. No cardiac history. No history of any NH or CVA, diabetes, or hypertension. PAST MEDICAL HISTORY: Remarkable for alcoholism. Apparently, she has had some thyroidectomy in 1999, details are unavailable. She has history of borderline hypertension. MEDICATIONS: Medications at home include, 1. Lexapro. 2. Lamictal. 3. Desyrel. 4. Folic acid. 5. Thiamine. EKG revealed a sinus mechanism. No acute changes. LABORATORY DATA: Revealed unremarkable troponins. Electrolytes are normal. Liver functions are mildly elevated. PHYSICAL EXAMINATION: VITAL SIGNS: Blood pressure is 118/70, pulse rate is 68, regular. HEENT: Unremarkable. Fundus was not examined by me. The patient is tremulous. HEART: S1, S2 heard normally. No rub, murmur or gallop. LUNGS: Clear. ABDOMEN: Soft, nontender. EXTREMITIES: Lower extremities revealed palpable pulses. No edema. CENTRAL NERVOUS SYSTEM: Normal. IMPRESSION: 1. Atypical chest pain. 2. Acute alcoholism. 3. Mental health issues. RECOMMENDATIONS: I am recommending an echocardiogram to check LV function. We will place her on 12.5 mg b.i.d. of metoprolol tartrate. We will check another EKG, echo today, TSH and free T4 level. 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 We will see her as needed. MMODL / IJN: [id number] /
[2023-01-19 11:42] LABS: LDL Cholesterol,Calculated 133.9 mg/dL (0.0-131.0); VLDL Calculation 15.64 mg/dL (5.00-40.00)
--- NOTE | 2023-01-19 16:37 | CA ---
Transthoracic Echo Report Name: Rosa Saba Age: 62 Gender: F : 1960 Exam Date: 01/19/2023 09:37 Exam Location: [facility] Ht (in): 64 Wt (lb): 174 Ordering Physician: Deanna Nevarez MD ([id number]) Attending/Referring Phys: Economics Faculty Member Sammie Shannon RDCS Procedure CPT: Indications: chest pain/ETOH Cardiac Hx: Technical Quality: Good Contrast 1: Total Dose (mL): Contrast 2: Total Dose (mL): MEASUREMENTS (Male / Female) Normal Values 2D ECHO LV Diastolic Diameter PLAX 4.0 cm 4.2 - 5.9 / 3.9 - 5.3 cm LV Systolic Diameter PLAX 2.7 cm IVS Diastolic Thickness 1.3 cm 0.6 - 1.0 / 0.6 - 0.9 cm LVPW Diastolic Thickness 1.2 cm 0.6 - 1.0 / 0.6 - 0.9 cm LV Relative Wall Thickness 0.6 RV Internal Dim ED PLAX 3.4 cm LA Systolic Diameter LX 3.5 cm 3.0 - 4.0 / 2.7 - 3.8 cm LV Diastolic Volume MOD 4C 100.3 cm??? LV Systolic Volume MOD 4C 41.5 cm??? LV Ejection Fraction MOD 4C 58.6 % LV Diastolic Length 4C 7.8 cm LV Systolic Length 4C 6.0 cm LV Diastolic Volume MOD 2C 89.0 cm??? LV Systolic Volume MOD 2C 38.6 cm??? LV Ejection Fraction MOD 2C 56.6 % LV Diastolic Length 2C 7.7 cm LV Systolic Length 2C 5.9 cm LA Volume 60.1 cm??? 18 - 58 / 22 - 52 cm??? M-MODE Aortic Root Diameter MM 3.0 cm MV E Point Septal Separation 0.3 cm AV Cusp Separation MM 1.6 cm DOPPLER AV Peak Velocity 160.3 cm/s AV Peak Gradient 10.3 mmHg MV Area PHT 3.4 cm??? Mitral E Point Velocity 91.7 cm/s Mitral A Point Velocity 71.3 cm/s Mitral E to A Ratio 1.3 MV Deceleration Time 226.3 ms MV E' Velocity 7.1 cm/s Mitral E to MV E' Ratio 12.9 TR Peak Velocity 217.3 cm/s TR Peak Gradient 18.9 mmHg Right Ventricular Systolic Press 23.9 mmHg FINDINGS Left Ventricle Left ventricular ejection fraction is estimated at 55-60 %. Left ventricular cavity size normal. Mild concentric left ventricular hypertrophy. Right Ventricle Mild right ventricular dilatation. Right ventricular systolic pressure within normal limits. Right Atrium Normal right atrial size. Left Atrium Mildly increased left atrial volume. Mildly increased left atrial area. Mitral Valve Structurally normal mitral valve. Trace mitral regurgitation. Aortic Valve Trileaflet aortic valve. No aortic valve stenosis or regurgitation. Tricuspid Valve Structurally normal tricuspid valve. Mild tricuspid regurgitation. Pulmonic Valve Structurally normal pulmonic valve. Trace to mild pulmonic regurgitation. Pericardium Normal pericardium. No pericardial effusion. Aorta Normal size aortic root and proximal ascending aorta. CONCLUSIONS Normal LV function Mild mitral regurgitation Normal aortic valve was no stenosis or regurgitation No evidence of pericardial effusion Previewed by: Dr. Ranjeet Key MD (Electronically Signed) Final Date: 19 January 2023 16:36
[2023-01-19 16:48] LABS: T4, Free (Free Thyroxine) 0.96 ng/dL (0.800-1.800)
[2023-01-19] MEDS: SODIUM CHLORIDE 0.9% 1,000 ML IV SCH (17:04)
[2023-01-19] MEDS: traZODone HCL 100 MG TAB PO SCH (20:40)
[2023-01-19] MEDS: ACAMPROSATE CALCIUM 333 MG TABLET.DR PO SCH (20:40)
--- NOTE | 2023-01-19 23:30 | P.PN ---
Subjective Progress Note Date: 01/19/23 Patient is a 60-year-old female with known history of asthma, daily alcohol use, hypothyroidism, hypertension, history of goiter status post thyroidectomy, history of suicidal ideation and prior history of intoxication presents to ER due to complaints of generalized shakiness and withdrawal symptoms. Patient states that she also felt chest discomfort mainly tightness in the left retrosternal region. Associate with mild shortness of breath. Patient is trying to quit alcohol and call her counselor who recommended to go to ER. Patient does drink about 3 pints of alcohol a day. When coming to the hospital she drank Suave hairspray today. Chest x-ray showed no acute cardiopulmonary process/changes. Stable right basilar 4 cm circumscribed mass seen on prior CT 01/14/2023. This appears to be represent Bochdalek hernia containing a portion of the liver on CT. EKG showed sinus rhythm with right patient supraventricular premature complexes. Laboratory data showed D-dimer 0.5 sodium 143 potassium 3.7, chloride 109 bicarb is 21 BUN 11 and creatinine 0.57 and blood sugar is 142, AST 46 ALT 47 alk phos 46 and troponin x3 negative and serum alcohol level was 209 lipase level is 59 proBNP 69 01/19/2023 Patient is currently lying in the bed. Awake alert and oriented x3. Still shaky and having tremors. Requiring Ativan. No complaints of chest pain or shortness of breath. No nausea vomiting abdominal pain or diarrhea. Blood pressure is controlled. No cough or sputum production. Laboratory data showed WBC 5.7 hemoglobin 12.1 and platelets 160 sodium 139 potassium 4.1 chloride 103 bicarb 26 BUN 17 and creatinine 0.71 and the LDL level is 133. TSH and free T4 levels within normal limits. Current medications reviewed. Objective - Vital Signs Vital signs: Vital Signs Temp 98.9 F 01/19/23 20:40 Pulse 82 01/19/23 20:40 Resp 17 01/19/23 20:40 BP 128/83 01/19/23 20:40 Pulse Ox 95 01/19/23 20:40 FiO2 Intake & Output 01/19/23 01/19/23 01/20/23 06:59 18:59 06:59 Intake Total 180 Balance 180 Weight 79.3 kg Intake: Oral 180 Other: # Voids 1 1 - Exam PHYSICAL EXAMINATION: Patient is lying in the bed comfortably, no acute distress, awake alert and oriented. Patient is shaky. HEENT: Normocephalic. Neck is supple. Pupils reactive. Nostrils clear. Oral cavity is moist. Neck reveals no JVD, carotid bruits, or thyromegaly. CHEST EXAMINATION: Trachea is central. Symmetrical expansion. Lung zaman clear to auscultation and percussion. CARDIAC: Normal S1, S2 with no gallops. No murmurs ABDOMEN: Soft. Bowel sounds present. Nontender. No organomegaly. No abdominal bruits. Extremities: reveal no edema. No clubbing or cyanosis Neurologically awake, alert, oriented x3 with well-coordinated movements. No focal deficits noted. Tremors. Skin: No rash or skin lesions. Psychiatric: Coperative. Nonsuicidal, anxious. Musculoskeletal: No joint swelling or deformity. Normal range of motion. - Labs CBC & Chem 7: 01/19/23 06:05 01/19/23 06:05 Labs: Abnormal Lab Results - Last 24 Hours (Table) 01/19/23 01/19/23 Range/Units 06:05 06:05 RBC 3.60 L (3.80-5.40) m/uL Cholesterol 249.00 H (0.00-200.00) mg/dL LDL Cholesterol, Calc 133.9 H (0.0-131.0) mg/dL HDL Cholesterol 99.50 H (40.00-60.00) mg/dL Assessment and Plan Assessment: Chest discomfort/tightness. Ruled out ACS. Likely GI related and withdrawal symptoms.. Acute alcohol intoxication Acute alcohol withdrawal symptoms Severe alcohol abuse on daily basis History of prior admissions with psychiatric unit and alcohol intoxication. Hypothyroidism Hypertension Asthma Anxiety/depression bipolar disorder DVT prophylaxis Plan: Patient will be started on IV hydration and alcohol withdrawal protocol. Continue telemetry monitoring. Serial troponin x3 negative. 2D echocardiogram was ordered.Cardiology is on board. Continue with PPI and home medications. Follow-up closely. Time with Patient: Greater than 30
[2023-01-20] MEDS: SODIUM CHLORIDE 0.9% 1,000 ML IV SCH (04:09)
[2023-01-20] MEDS: LEVOTHYROXINE 125 MCG TAB PO SCH (05:25)
[2023-01-20] MEDS: PANTOPRAZOLE 40 MG TABLET PO SCH (05:25)
[2023-01-20] MEDS: SYMBICORT 160-4.5 MCG INHALER INHALATION SCH (08:17)
[2023-01-20] MEDS: lamoTRIgine 100 MG TAB PO SCH (08:42)
[2023-01-20] MEDS: ESCITALOPRAM 20 MG TAB PO SCH (08:42)
[2023-01-20] MEDS: FOLIC ACID 1 MG TAB PO SCH (08:43)
[2023-01-20] MEDS: METOPROLOL TARTRATE 12.5 MG TAB PO SCH (08:43)
[2023-01-20] MEDS: ACAMPROSATE CALCIUM 333 MG TABLET.DR PO SCH (08:43)
[2023-01-20] MEDS: THIAMINE 100 MG TAB PO SCH (08:43)
[2023-01-20] MEDS: ASPIRIN 325 MG TAB PO SCH (08:43)
[2023-01-20] MEDS: ARIPiprazole 10 MG TAB PO SCH (08:43)
[2023-01-20] MEDS: MULTIVITAMINS, THERA 1 EACH TAB PO SCH (08:43)
[2023-01-20] MEDS: HEPARIN SODIUM,PORCINE/PF 5,000 UNIT/0.5 ML SYRINGE SQ SCH (08:44)
[2023-01-20 10:59] VITALS: RESP 16
[2023-01-20 12:20] VITALS: BP 144/89; PULSE 56; TEMP 98.3
== END 2023-01-20 13:01 | disposition other institution (70) | DRG 775 ==
LOC: EC 12:49 → 3SCARD 15:24
PROVIDERS: ADMIT Internal Medicine; ATTEND Internal Medicine
DX: F10.239 Alcohol dependence with withdrawal, unspecified (principal); F10.229 Alcohol dependence with intoxication, unspecified; I10 Essential (primary) hypertension; E89.0 Postprocedural hypothyroidism; L40.9 Psoriasis, unspecified; J45.909 Unspecified asthma, uncomplicated; I08.1 Rheumatic disorders of both mitral and tricuspid valves; F31.9 Bipolar disorder, unspecified; F41.9 Anxiety disorder, unspecified; I49.1 Atrial premature depolarization; J30.2 Other seasonal allergic rhinitis; Z63.72 Alcoholism and drug addiction in family; Z81.1 Family history of alcohol abuse and dependence; Z79.51 Long term (current) use of inhaled steroids; Z79.890 Hormone replacement therapy; Z79.899 Other long term (current) drug therapy; Z71.41 Alcohol abuse counseling and surveillance of alcoholic; Y90.7 Blood alcohol level of 200-239 mg/100 ml; Z88.1 Allergy status to other antibiotic agents; Z88.8 Allergy status to other drugs, medicaments and biological substances
CPT/HCPCS: 36415; 71046; 80048; 80053; 80061; 80320; 82150; 83690; 83735; 83880; 84439; 84443; 84484; 85025; 85379; 85610; 85730; 93005; 93306; 94640; 94760; 99285

== ENCOUNTER → 2023-03-04 | Outpatient (CLI) | payer OTHER ==
--- NOTE | 2023-03-04 09:37 | PE ---
EXAMINATION TYPE: PET CT fusion skull to thigh DATE OF EXAM: 03/04/2023 COMPARISON: Chest CT January 14, 2023 HISTORY: Solitary pulmonary nodule, abnormal CT TECHNIQUE: Following the intravenous administration of 13.0 mCi of F-18 FDG, whole body images are p erformed from the skull base to the midthigh. Images are reviewed on the computer in the coronal, ax ial, and sagittal planes. Reconstructed rotating images are created on independent workstation and r eviewed on the computer. A localization and attenuation correction CT is performed in conjunction w ith the PET scan. Blood glucose level equals 106. SCAN: Initial Scan FINDINGS: SKULL BASE AND NECK: Mild uptake proximal medial shoulder muscles bilaterally could reflect inflamma tory etiology. Mild uptake in the submandibular glands also could reflect inflammatory etiology. No s uspicious abnormal hypermetabolic uptake. CHEST, MEDIASTINUM, AND HILAR REGION: Stable round area measuring 3.1 x 3.0 cm axial image 96 is slig htly hypodense relative to adjacent liver in the right lung base does not show abnormal hypermetaboli c uptake. No abnormal hypermetabolic uptake in the thorax. ABDOMEN AND PELVIS: No adrenal masses. Normal excretion. No abnormal hypermetabolic uptake. OSSEOUS STRUCTURES: No abnormal hypermetabolic uptake. OTHER CT: Mild cardiomegaly. Normal-appearing appendix from the cecum. Occasional scattered tiny pelv ic phlebolith. IMPRESSION: No abnormal hypermetabolic uptake in the possible right basilar mass versus focal diaphra gmatic herniation containing liver to suggest malignancy. Consider follow-up CT in one year time to d ocument stability.
== END | disposition home or self-care (01) ==
LOC: RADPETMAIN 07:11
PROVIDERS: ATTEND Internal Medicine Critical Care Medicine
DX: R91.1 Solitary pulmonary nodule (principal)
CPT/HCPCS: 78815; A9552

== ENCOUNTER 2023-03-08 17:56 | Emergency (ER) | payer OTHER ==
[2023-03-08] MEDS ORDERED: THIAMINE 100 MG/ML 2 ML VIAL IM STA (21:17)
--- NOTE | 2023-03-09 03:44 | ED ---
Alcohol HPI - General Source: patient Mode of arrival: EMS Limitations: altered mental status - History of Present Illness MD Complaint: alcohol intoxication Last Drink: unknown Previous Visits for Alcohol Intoxication?: Yes Associated Symptoms: denies other symptoms Treatments Prior to Arrival: none Chronic Alcohol Use: Yes <Omar Hayes - Last Filed: 03/09/23 03:41> <Raman Timmons - Last Filed: 03/09/23 11:08> - General Chief Complaint: Alcohol Stated Complaint: MENTAL HEALTH Time Seen by Provider: 03/08/23 18:37 - History of Present Illness Initial Comments: This patient is 62-year-old woman with history of previous emergency department visits for alcohol intoxication who presents today and was not able to tell me why she was here. I went to see the patient her main complaint was that she did not know how she got to the department. 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 The patient when I saw her was not having complaints of acute pain, no fever or chills, no dyspnea, no nausea or vomiting. She was only concerned about the fact that she could not remember what happened prior to arrival here. (Omar Hayes) - Related Data Home Medications Medication Instructions Recorded Confirmed Budesonide/Formoterol Fumarate 2 puff INHALATION RT-BID 01/14/23 03/08/23 [Symbicort 160-4.5 Mcg Inhaler] Levothyroxine Sodium [Synthroid] 125 mcg PO DAILY 01/14/23 03/08/23 Daily-Fara 1 tab PO DAILY 03/08/23 03/08/23 Metoprolol Tartrate [Lopressor] 12.5 mg PO BID 03/08/23 03/08/23 Previous Rx's Medication Instructions Recorded Albuterol Inhaler [Ventolin Hfa 2 puff INHALATION RT-Q6H PRN #1 01/20/23 Inhaler] each Nitroglycerin Sl Tabs [Nitrostat] 0.4 mg SUBLINGUAL Q5M PRN #30 tab 01/20/23 Allergies Allergy/AdvReac Type Severity Reaction Status Date / Time clindamycin Allergy Unknown Rash/Hives Verified 03/08/23 19:03 acetylcysteine AdvReac Anaphylaxis Verified 03/08/23 19:03 [From Mucomyst] citalopram [From Celexa] AdvReac Hallucinati Verified 03/08/23 19:03 ons diphenhydramine HCl AdvReac Rapid Verified 03/08/23 19:03 [From Benadryl] Heart Rate Review of Systems ROS Other: All systems not noted in ROS Statement are negative. Limitations: ROS unobtainable due to patients medical condition Constitutional: Denies: fever Respiratory: Denies: cough, dyspnea Cardiovascular: Denies: chest pain Gastrointestinal: Denies: abdominal pain, vomiting Musculoskeletal: Denies: back pain Neurological: Denies: headache, weakness <Omar Hayes - Last Filed: 03/09/23 03:41> ROS Other: All systems not noted in ROS Statement are negative. <Raman Timmons - Last Filed: 03/09/23 11:08> ROS Statement: Those systems with pertinent positive or pertinent negative responses have been documented in the HPI. Past Medical History Past Medical History: Asthma, Cancer, Hypertension, Thyroid Disorder Additional Past Medical History / Comment(s): History of goiter status post thyroidectomy, questionable history of thyroid cancer although this is not clear, bipolar disorder, depression, history of suicidal ideations, history of drug overdose, alcoholism, seasonal rhinitis, psoriasis, breast cysts, history of broken toes in the right foot, hypertension, History of Any Multi-Drug Resistant Organisms: None Reported Past Surgical History: No Surgical Hx Reported Additional Past Surgical History / Comment(s): Thyroidectomy 1999, SKIN NEVI REMOVED Past Anesthesia/Blood Transfusion Reactions: Previous Problems w/ Anesthesia, Postoperative Nausea & Vomiting (PONV) Additional Past Anesthesia/Blood Transfusion Reaction / Comment(s): patient states she is homeless. Pt is normally independent. Pt is an alcoholic. She is feeling more depressed lately and ashamed of her alcoholism. PT STATED SHE IS A BINGE DRINKER AND IS A BLACK OUT DRINKER,THINKS SHE STARTED DRINKING 4-5 DAYS AGO 3 PINTS A DAY AND WHEN COMING DOWN DRANK SUAVE HAIR SPRAY Pt no longer has a drivers license- she has had 2 DUI's. 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 She is seen at [facility]. Past Psychological History: Anxiety, Bipolar, Depression Smoking Status: Never smoker Past Alcohol Use History: Abuse, Daily, Heavy Past Drug Use History: None Reported - Past Family History Father Family Medical History: Cancer Additional Family Medical History / Comment(s): Father at age 64 of esophageal cancer. Father was an alcoholic and had cirrhosis of the liver. Mother Family Medical History: Cancer Additional Family Medical History / Comment(s): Mother of breast cancer at age 42yrs. <Omar Hayes - Last Filed: 03/09/23 03:41> General Exam Limitations: no limitations General appearance: alert, appears intoxicated Head exam: Present: atraumatic, normocephalic Eye exam: Present: normal appearance. Absent: scleral icterus, conjunctival injection Neck exam: Present: normal inspection, full ROM. Absent: tenderness Respiratory exam: Present: normal lung sounds bilaterally. Absent: respiratory distress, wheezes, rales, rhonchi, stridor, chest wall tenderness Cardiovascular Exam: Present: regular rate, normal rhythm, normal heart sounds. Absent: systolic murmur, diastolic murmur, rubs, gallop GI/Abdominal exam: Present: soft. Absent: distended, tenderness, guarding, rebound, rigid Extremities exam: Present: normal inspection, normal capillary refill Back exam: Present: normal inspection. Absent: vertebral tenderness Neurological exam: Present: alert, CN II-XII intact. Absent: oriented X3, motor sensory deficit Skin exam: Present: warm, dry, intact, normal color. Absent: rash <Omar Hayes - Last Filed: 03/09/23 03:41> Course Vital Signs 03/08/23 03/09/23 18:05 09:09 Temperature 97.8 F 98.2 F Pulse Rate 81 101 H Respiratory 18 20 Rate Blood Pressure 127/84 130/84 O2 Sat by Pulse 96 98 Oximetry Medical Decision Making <Raman Timmons - Last Filed: 03/09/23 11:08> - Medical Decision Making Was pt. sent in by a medical professional or institution (, PA, ENVIRONMENTAL LAWYER, urgent care, hospital, or [facility]cc...) When possible be specific @ -No Did you speak to anyone other than the patient for history (EMS, parent, family, police, friend...)? What history was obtained from this source @ -No Did you review nursing and triage notes (agree or disagree)? Why? @ -I reviewed and agree with nursing and triage notes Were old charts reviewed (outside hosp., previous admission, EMS record, old EKG, old radiological studies, urgent care reports/EKG's, mcc records)? Report findings @ -No old charts were reviewed Differential Diagnosis (chest pain, altered mental status, abdominal pain women, abdominal pain men, vaginal bleeding, weakness, fever, dyspnea, syncope, headache, dizziness, GI bleed, back pain, seizure, CVA, palpatations, mental health)? @ -not applicable EKG interpreted by me (3pts min.). @ -As above X-rays interpreted by me (1pt min.). @ -None done CT interpreted by me (1pt min.). @ -None done U/S interpreted by me (1pt. min.). @ -None done What testing was considered but not performed or refused? (CT, X-rays, U/S, labs)? Why? @ -None What meds were considered but not given or refused? Why? @ -None Did you discuss the management of the patient with other professionals (professionals i.e. , PA, ENVIRONMENTAL LAWYER, lab, RT, psych nurse, social insurance analyst, combatant swimmer, teacher, sea air land officer, employment evaluator/case manager)? Give summary @ -Did speak with mental health professional who does recommend discharge after evaluating patient Was smoking cessation discussed for >3mins.? @ -No Was critical care preformed (if so, how long)? @ -No Were there social determinants of health that impacted care today? How? (Homelessness, low income, unemployed, alcoholism, drug addiction, transportation, low edu. Level, literacy, decrease access to med. care, long-term, rehab)? @ -No Was there de-escalation of care discussed even if they declined (Discuss DNR or withdrawal of care, Hospice)? DNR status @ -No What co-morbidities impacted this encounter? (DM, HTN, Smoking, COPD, CAD, Cancer, CVA, ARF, Chemo, Hep., AIDS, mental health diagnosis, sleep apnea, morbid obesity)? @ -None Was patient admitted / discharged? Hospital course, mention meds given and route, prescriptions, significant lab abnormalities, going to OR and other pertinent info. @ -Patient was recommended discharge and follow-up. Patient reevaluated by myself, Dr. Timmons. Patient denies suicidal or homicidal ideation. Patient does admit to drinking too much alcohol and does not recall making any statements. Patient does contract for safety. Patient states she does have an appointment tomorrow and is committed to making this appointment. Undiagnosed new problem with uncertain prognosis? @ -No Drug Therapy requiring intensive monitoring for toxicity (Heparin, Nitro, Insulin, Cardizem)? @ -No Were any procedures done? @ -No Diagnosis/symptom? @ -Alcohol intoxication Acute, or Chronic, or Acute on Chronic? @ -Acute Uncomplicated (without systemic symptoms) or Complicated (systemic symptoms)? @ -default Side effects of treatment? @ -No Exacerbation, Progression, or Severe Exacerbation? @ -No Poses a threat to life or bodily function? How? (Chest pain, [place], [place], pneumonia, PE, COPD, DKA, ARF, appy, cholecystitis, CVA, Diverticulitis, Homicidal, Suicidal, threat to staff... and all critical care pts) @ -No (Raman Timmons) Disposition <Omar Hayes - Last Filed: 03/09/23 03:41> Is patient prescribed a controlled substance at d/c from ED?: No Time of Disposition: 11:08 <Raman Timmons - Last Filed: 03/09/23 11:08> Clinical Impression: Alcohol intoxication Disposition: HOME SELF-CARE Condition: Stable Instructions (If sedation given, give patient instructions): Alcohol Intoxication (ED) Additional Instructions: Please do follow-up with your primary care physician in the next day or 2 for recheck. Please follow-up with your psychiatrist tomorrow as planned. Avoid alcohol. Please return for thoughts of self-harm, worsening or changing symptoms or other concerns. Referrals: Karan Huitron MD [Primary Care Provider] - 1-2 days
[2023-03-09 09:11] VITALS: RESP 20; TEMP 98.2
[2023-03-09 11:32] VITALS: BP 143/85; PULSE 104
== END 2023-03-09 11:32 | disposition home or self-care (01) ==
LOC: EC 17:56
DX: F10.129 Alcohol abuse with intoxication, unspecified (principal); I10 Essential (primary) hypertension; F31.9 Bipolar disorder, unspecified; J45.909 Unspecified asthma, uncomplicated; F41.9 Anxiety disorder, unspecified; Z79.51 Long term (current) use of inhaled steroids; Z79.899 Other long term (current) drug therapy; Z88.8 Allergy status to other drugs, medicaments and biological substances
CPT/HCPCS: 82075 ×2; 99285; 96372; J3411

== ENCOUNTER 2023-05-18 15:58 | Inpatient (IN) | payer OTHER ==
--- NOTE | 2023-05-18 16:54 | ED ---
General Adult HPI - General Chief complaint: Psychiatric Symptoms Stated complaint: mental health Time Seen by Provider: 05/18/23 16:10 Source: patient, EMS, RN notes reviewed, old records reviewed Mode of arrival: EMS Limitations: no limitations - History of Present Illness Initial comments: This is a 62-year-old female presents emergency Department stating she's been drinking quite heavily for the last week. Patient states she's very depressed and has been thinking about killing himself. Patient states she has thought about herself in the past but has been about 10 years. Patient states she is on anti-depressive medications. Patient states she's got no physical complaints today. Patient denies any patient denies numbness weakness per patient denies chest pain difficult breathing shortest breath. Patient denies any abdominal pain patient denies nausea vomiting diarrhea. - Related Data Home Medications Medication Instructions Recorded Confirmed Budesonide/Formoterol Fumarate 2 puff INHALATION RT-BID 01/14/23 05/18/23 [Symbicort 160-4.5 Mcg Inhaler] Levothyroxine Sodium [Synthroid] 125 mcg PO DAILY 01/14/23 05/18/23 ARIPiprazole [Abilify] 10 mg PO DAILY 05/18/23 05/18/23 Escitalopram [Lexapro] 20 mg PO DAILY 05/18/23 05/18/23 Multivitamins, Thera [Multivitamin 1 tab PO DAILY 05/18/23 05/18/23 (formulary)] Nitroglycerin Sl Tabs [Nitrostat] 0.4 mg SL Q5M PRN 05/18/23 05/18/23 lamoTRIgine [LaMICtal] 150 mg PO DAILY 05/18/23 05/18/23 traZODone HCL 100 mg PO HS 05/18/23 05/18/23 Previous Rx's Medication Instructions Recorded Albuterol Inhaler [Ventolin Hfa 2 puff INHALATION RT-Q6H PRN #1 01/20/23 Inhaler] each Allergies Allergy/AdvReac Type Severity Reaction Status Date / Time clindamycin Allergy Unknown Rash/Hives Verified 03/08/23 19:03 acetylcysteine AdvReac Anaphylaxis Verified 03/08/23 19:03 [From Mucomyst] citalopram [From Celexa] AdvReac Hallucinati Verified 03/08/23 19:03 ons diphenhydramine HCl AdvReac Rapid Verified 03/08/23 19:03 [From Benadryl] Heart Rate Review of Systems ROS Statement: Those systems with pertinent positive or pertinent negative responses have been documented in the HPI. ROS Other: All systems not noted in ROS Statement are negative. Past Medical History Past Medical History: Asthma, Cancer, Hypertension, Thyroid Disorder Additional Past Medical History / Comment(s): History of goiter status post thyroidectomy, questionable history of thyroid cancer although this is not clear, bipolar disorder, depression, history of suicidal ideations, history of drug overdose, alcoholism, seasonal rhinitis, psoriasis, breast cysts, history of broken toes in the right foot, hypertension, History of Any Multi-Drug Resistant Organisms: None Reported Past Surgical History: No Surgical Hx Reported Additional Past Surgical History / Comment(s): Thyroidectomy 1999, SKIN NEVI REMOVED Past Anesthesia/Blood Transfusion Reactions: Previous Problems w/ Anesthesia, Postoperative Nausea & Vomiting (PONV) Additional Past Anesthesia/Blood Transfusion Reaction / Comment(s): patient stat es she is homeless. Pt is normally independent. Pt is an alcoholic. She is feeling more depressed lately and ashamed of her alcoholism. PT STATED SHE IS A BINGE DRINKER AND IS A BLACK OUT DRINKER,THINKS SHE STARTED DRINKING 4-5 DAYS AGO 3 PINTS A DAY AND WHEN COMING DOWN DRANK SUAVE HAIR SPRAY Pt no longer has a drivers license- she has had 2 DUI's. 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 She is seen at [facility]. Past Psychological History: Anxiety, Bipolar, Depression Smoking Status: Never smoker Past Alcohol Use History: Abuse, Daily, Heavy Past Drug Use History: None Reported - Past Family History Father Family Medical History: Cancer Additional Family Medical History / Comment(s): Father at age 64 of esophageal cancer. Father was an alcoholic and had cirrhosis of the liver. Mother Family Medical History: Cancer Additional Family Medical History / Comment(s): Mother of breast cancer at age 42yrs. General Exam - General Exam Comments Initial Comments: GENERAL: Patient is well-developed and well-nourished. Patient is nontoxic and well-h ydrated and is in no acute distress. Patient appears intoxicated ENT: Neck is soft and supple. No significant lymphadenopathy is noted. Oropharynx is clear. Moist mucous membranes. Neck has full range of motion without eliciting any pain. EYES: The sclera were anicteric and conjunctiva were pink and moist. Extraocular movements were intact and pupils were equal round and reactive to light. Eyelids were unremarkable. PULMONARY: Unlabored respirations. Good breath sounds bilaterally. No audible rales rhonchi or wheezing was noted. CARDIOVASCULAR: There is a regular rate and rhythm without any murmurs gallops or rubs. ABDOMEN: Soft and nontender with normal bowel sounds. SKIN: Skin is clear with no lesions or rashes and otherwise unremarkable. NEUROLOGIC: Patient is alert and oriented x3. Cranial nerves II through XII are grossly intact. Motor and sensory are also intact. Normal speech, volume and content. Symmetrical smile. MUSCULOSKELETAL: Normal extremities with adequate strength and full range of motion. LYMPHATICS: No significant lymphadenopathy is noted PSYCHIATRIC: Normal psychiatric evaluation. Limitations: no limitations Course Vital Signs 05/18/23 16:02 Temperature 97.8 F Pulse Rate 95 Respiratory 20 Rate Blood Pressure 123/79 O2 Sat by Pulse 95 Oximetry Medical Decision Making - Medical Decision Making Was pt. sent in by a medical professional or institution (, PA, TRAVEL REGISTERED NURSE ICU, urgent care, hospital, or long term...) When possible be specific @ -No Did you speak to anyone other than the patient for history (EMS, parent, family, police, friend...)? What history was obtained from this source @ -No Did you review nursing and triage notes (agree or disagree)? Why? @ -I reviewed and agree with nursing and triage notes Were old charts reviewed (outside hosp., previous admission, EMS record, old EKG, old radiological studies, urgent care reports/EKG's, long term records)? Report findings @ -I reviewed the patient's old charts and old lab work Differential Diagnosis (chest pain, altered mental status, abdominal pain women, abdominal pain men, vaginal bleeding, weakness, fever, dyspnea, syncope, headache, dizziness, GI bleed, back pain, seizure, CVA, palpatations, mental health, musculoskeletal)? @ -Differential Mental Health Depression, anxiety, bipolar, psychosis, schizophrenia, borderline personality, situational depression, adjustment disorder, behavioral disorder, brain tumor, m alingering, substance abuse, encephalopathy, medication reaction, dementia, hypothyroidism, degenerative neurologic disorder, lupus.... This is not meant to be all-inclusive list EKG interpreted by me (3pts min.). @ -As above X-rays interpreted by me (1pt min.). @ -X-ray shows no acute abnormality CT interpreted by me (1pt min.). @ -None done U/S interpreted by me (1pt. min.). @ -None done What testing was considered but not performed or refused? (CT, X-rays, U/S, labs)? Why? @ -None What meds were considered but not given or refused? Why? @ -None Did you discuss the management of the patient with other professionals (professionals i.e. , PA, TRAVEL REGISTERED NURSE ICU, lab, RT, psych nurse, social media community manager, breastfeeding peer counselor, teacher, financial aids officer, immigration case worker)? Give summary @ -Spoke with the [facility] agreed to admit the patient Was smoking cessation discussed for >3mins.? @ -No Was critical care preformed (if so, how long)? @ -No Were there social determinants of health that impacted care today? How? (Homelessness, low income, unemployed, alcoholism, drug addiction, transportation, low edu. Level, literacy, decrease access to med. care, correction, rehab)? @ -No Was there de-escalation of care discussed even if they declined (Discuss DNR or withdrawal of care, Hospice)? DNR status @ -No What co-morbidities impacted this encounter? (DM, HTN, Smoking, COPD, CAD, Cancer, CVA, ARF, Chemo, Hep., AIDS, mental health diagnosis, sleep apnea, morbid obesity)? @ -None Was patient admitted / discharged? Hospital course, mention meds given and route, prescriptions, significant lab abnormalities, going to OR and other pertinent info. @ -Patient came into the emergency department was significantly intoxicated and stating that she was suicidal and wanted to speak with somebody. Because the patient's intoxication I [facility] hospitalist and they agreed to admit the patient I admitted the patient I wrote admitting orders. Undiagnosed new problem with uncertain prognosis? @ -No Drug Therapy requiring intensive monitoring for toxicity (Heparin, Nitro, Insulin, Cardizem)? @ -No Were any procedures done? @ -No Diagnosis/symptom? @ -Alcohol intoxication Acute, or Chronic, or Acute on Chronic? @ -Acute Uncomplicated (without systemic symptoms) or Complicated (systemic symptoms)? @ -Complicated Side effects of treatment? @ -No Exacerbation, Progression, or Severe Exacerbation? @ -No Poses a threat to life or bodily function? How? (Chest pain, [place], [place], pneumonia, PE, COPD, DKA, ARF, appy, cholecystitis, CVA, Diverticulitis, Homicidal, Suicidal, threat to staff... and all critical care pts) @ -Yes is completed light slight abnormalities in severe morbidity Diagnosis/symptom? @ -Suicidal ideations Acute, or Chronic, or Acute on Chronic? @ -Acute Uncomplicated (without systemic symptoms) or Complicated (systemic symptoms)? @ -Complicated Side effects of treatment? @ -none Exacerbation, Progression, or Severe Exacerbation] @ -no Poses a threat to life or bodily function? @ -Yes this could lead to his if the patient was successful committing suicide - Lab Data Result diagrams: 05/18/23 17:13 05/18/23 17:13 Lab Results 05/18/23 05/18/23 Range/Units 17:13 17:13 WBC 5.9 (3.8-10.6) k/uL RBC 4.08 (3.80-5.40) m/uL Hgb 13.2 (11.4-16.0) gm/dL Hct 38.5 (34.0-46.0) % MCV 94.6 (80.0-100.0) fL MCH 32.4 (25.0-35.0) pg MCHC 34.3 (31.0-37.0) g/dL RDW 13.4 (11.5-15.5) % Plt Count 188 (150-450) k/uL MPV 8.6 Neutrophils % 60 % Lymphocytes % 28 % Monocytes % 5 % Eosinophils % 4 % Basophils % 0 % Neutrophils # 3.5 (1.3-7.7) k/uL Lymphocytes # 1.7 (1.0-4.8) k/uL Monocytes # 0.3 (0-1.0) k/uL Eosinophils # 0.2 (0-0.7) k/uL Basophils # 0.0 (0-0.2) k/uL Sodium 144 (137-145) mmol/L Potassium 4.5 (3.5-5.1) mmol/L Chloride 107 (98-107) mmol/L Carbon Dioxide 29 (22-30) mmol/L Anion Gap 8 mmol/L BUN 11 (7-17) mg/dL Creatinine 0.63 (0.52-1.04) mg/dL Est GFR (CKD-EPI)AfAm >90 (>60 ml/min/1.73 sqM) Est GFR (CKD-EPI)NonAf >90 (>60 ml/min/1.73 sqM) Glucose 100 H (74-99) mg/dL Calcium 9.3 (8.4-10.2) mg/dL Magnesium 2.1 (1.6-2.3) mg/dL Total Bilirubin 0.3 (0.2-1.3) mg/dL AST 32 (14-36) U/L ALT 29 (4-34) U/L Alkaline Phosphatase 42 (38-126) U/L Total Protein 7.0 (6.3-8.2) g/dL Albumin 4.2 (3.5-5.0) g/dL Serum Alcohol 300 H* mg/dL Disposition Clinical Impression: Suicidal ideations, Alcohol intoxication Disposition: ADMITTED IP TO THIS HOSP Referrals: Karan Huitron MD [Primary Care Provider] - 1-2 days Time of Disposition: 20:10
[2023-05-18 17:35] LABS: Basophils % (A) 0 %; Eosinophils # (A) 0.2 k/uL (0-0.7); Eosinophils % (A) 4 %; HCT 38.5 % (34.0-46.0); HGB 13.2 gm/dL (11.4-16.0); Lymphocytes # (A) 1.7 k/uL (1.0-4.8); Lymphocytes % (A) 28 %; MCH 32.4 pg (25.0-35.0); MCHC 34.3 g/dL (31.0-37.0); MCV 94.6 fL (80.0-100.0); Mean Platelet Volume 8.6; Monocytes # (A) 0.3 k/uL (0-1.0); Monocytes % (A) 5 %; Neutrophils # (A) 3.5 k/uL (1.3-7.7); Neutrophils % (A) 60 %; Platelet Count 188 k/uL (150-450); RBC 4.08 m/uL (3.80-5.40); RDW 13.4 % (11.5-15.5); WBC 5.9 k/uL (3.8-10.6)
[2023-05-18 17:52] LABS: ALT 29 U/L (4-34); AST 32 U/L (14-36); African American GFR (CKD) >90 (>60 ml/min/1.73 sqM); Albumin 4.2 g/dL (3.5-5.0); Alkaline Phosphatase 42 U/L (38-126); Anion Gap 8 mmol/L; Blood Urea Nitrogen 11 mg/dL (7-17); Calcium 9.3 mg/dL (8.4-10.2); Carbon Dioxide 29 mmol/L (22-30); Chloride 107 mmol/L (98-107); Glucose 100 mg/dL (74-99); Magnesium 2.1 mg/dL (1.6-2.3); Non-African American GFR(CKD) >90 (>60 ml/min/1.73 sqM); Potassium 4.5 mmol/L (3.5-5.1); Sodium 144 mmol/L (137-145); Total Bilirubin 0.3 mg/dL (0.2-1.3)
[2023-05-18 18:02] LABS: Alcohol 300 mg/dL
[2023-05-18] MEDS ORDERED: ONDANSETRON 4 MG ODT STARTER PACK 2 TAB BTL PO STA (18:54)
[2023-05-18] MEDS ORDERED: SODIUM CHLORIDE 0.9% 1,000 ML IV ONE (20:11)
[2023-05-18] MEDS ORDERED: THIAMINE 100 MG/ML 2 ML VIAL IM STA (20:12)
[2023-05-18] MEDS ORDERED: LORazepam 1 MG TAB PO PRN (20:12)
[2023-05-19] MEDS ORDERED: ONDANSETRON 4 MG/2 ML VIAL IVP PRN (03:46)
[2023-05-19] MEDS ORDERED: ALBUTEROL NEBULIZED 2.5 MG/3 ML INHALATION PRN (06:12)
[2023-05-19] MEDS ORDERED: LEVOTHYROXINE 125 MCG TAB PO SCH (06:30)
[2023-05-19 07:45] VITALS: RESP 16
[2023-05-19] MEDS ORDERED: SYMBICORT 160-4.5 MCG INHALER INHALATION SCH (08:00)
[2023-05-19] MEDS ORDERED: ESCITALOPRAM 20 MG TAB PO SCH (09:00)
[2023-05-19] MEDS ORDERED: MULTIVITAMINS, THERA 1 EACH TAB PO SCH (09:00)
[2023-05-19] MEDS ORDERED: lamoTRIgine 100 MG TAB PO SCH (09:00)
[2023-05-19] MEDS ORDERED: THIAMINE 100 MG TAB PO SCH (09:00)
[2023-05-19] MEDS ORDERED: ARIPiprazole 10 MG TAB PO SCH (09:00)
[2023-05-19 13:46] VITALS: BP 130/82; PULSE 87; TEMP 98
[2023-05-19] MEDS ORDERED: LORazepam 1 MG TAB PO PRN ×2 (13:51→13:52)
--- NOTE | 2023-05-19 13:53 | P.HPIM ---
History of Present Illness H&P Date: 05/19/23 History of present illness; patient is 62-year-old lady with past medical histor y significant for depression, hypothyroidism, COPD the ER because of suicidal thoughts. Patient stated that she has been drinking a lot for the last week. Patient has been very depressed and not a lot of social stressors. Patient stated that she has thoughts of killing herself. Patient does not have a plan yet. Denies any auditory or visual hallucinations. Because of suicidal thoughts, patient came to the ER Initial lab work done in the ER showed WBC 5.9, hemoglobin 13.2, platelet count 188, sodium 144, potassium 4.5, BUN 11, creatinine 0.63, serum alcohol level 300 Patient admitted to medicine service REVIEW OF SYSTEMS: CONSTITUTIONAL: No fever, no malaise, no fatigue. HEENT: No recent visual problems or hearing problems. Denied any sore throat. CARDIOVASCULAR: No chest pain, orthopnea, PND, no palpitations, no syncope. PULMONARY: No shortness of breath, no cough, no hemoptysis. GASTROINTESTINAL: No diarrhea, no nausea, no vomiting, no abdominal pain. NEUROLOGICAL: No headaches, no weakness, no numbness. HEMATOLOGICAL: Denies any bleeding or petechiae. GENITOURINARY: Denies any burning micturition, frequency, or urgency. MUSCULOSKELETAL/RHEUMATOLOGICAL: Denies any joint pain, swelling, or any muscle pain. ENDOCRINE: Denies any polyuria or polydipsia. The rest of the 14-point review of systems is negative. PHYSICAL EXAMINATION: GENERAL: The patient is alert and oriented x3, not in any acute distress. Well developed, well nourished. HEENT: Pupils are round and equally reacting to light. EOMI. No scleral icterus. No conjunctival pallor. Normocephalic, atraumatic. No pharyngeal erythema. No thyromegaly. CARDIOVASCULAR: S1 and S2 present. No murmurs, rubs, or gallops. PULMONARY: Chest is clear to auscultation, no wheezing or crackles. ABDOMEN: Soft, nontender, nondistended, normoactive bowel sounds. No palpable organomegaly. MUSCULOSKELETAL: No joint swelling or deformity. EXTREMITIES: No cyanosis, clubbing, or pedal edema. NEUROLOGICAL: Gross neurological examination did not reveal any focal deficits. SKIN: No rashes. Assessment and plan Suicidal thoughts Alcohol intoxication Major depression Monitor vital signs Monitor CBC Monitor CMP Continue telemetry monitoring Suicide precautions Elopement precautions Continue CIWA protocol Continue high dose thiamine and folic acid Psych consulted Labs and medication were reviewed.. Continue same treatment. Continue with symptomatic treatment. Resume home medication. Monitor labs and vitals. DVT and GI prophylaxis. Further recommendations as per clinical course of the patient Past Medical History Past Medical History: Asthma, Cancer, Hypertension, Thyroid Disorder Additional Past Medical History / Comment(s): History of goiter status post thyroidectomy, questionable history of thyroid cancer although this is not clear, bipolar disorder, depression, history of suicidal ideations, history of drug overdose, alcoholism, seasonal rhinitis, psoriasis, breast cysts, history of broken toes in the right foot, hypertension, History of Any Multi-Drug Resistant Organisms: None Reported Past Surgical History: No Surgical Hx Reported Additional Past Surgical History / Comment(s): Thyroidectomy 1999, SKIN NEVI REMOVED Past Anesthesia/Blood Transfusion Reactions: Previous Problems w/ Anesthesia, Postoperative Nausea & Vomiting (PONV) Additional Past Anesthesia/Blood Transfusion Reaction / Comment(s): patient states she is homeless. Pt is normally independent. Pt is an alcoholic. She is feeling more depressed lately and ashamed of her alcoholism. PT STATED SHE IS A BINGE DRINKER AND IS A BLACK OUT DRINKER,THINKS SHE STARTED DRINKING 4-5 DAYS AGO 3 PINTS A DAY AND WHEN COMING DOWN DRANK SUAVE HAIR SPRAY Pt no longer has a drivers license- she has had 2 DUI's. 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 She is seen at [facility]. Past Psychological History: Anxiety, Bipolar, Depression Additional Psychological History / Comment(s): patient states she is homeless. Pt is normally independent. Pt is an alcoholic. She is feeling more depressed lately and ashamed of her alcoholism. Pt states she drinks a pint a day and today drank half a bottle of hairspray. Pt no longer has a drivers license- she has had 2 DUI's. 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 She is seen at [facility]. Smoking Status: Never smoker Past Alcohol Use History: Abuse, Daily, Heavy Additional Past Alcohol Use History / Comment(s): Pt agrees she is an alcoholic for greater than 20 years and comes from a family hx of abuse. Past Drug Use History: None Reported - Past Family History Father Family Medical History: Cancer Additional Family Medical History / Comment(s): Father at age 64 of esophageal cancer. Father was an alcoholic and had cirrhosis of the liver. Mother Family Medical History: Cancer Additional Family Medical History / Comment(s): Mother of breast cancer at age 42yrs. Medications and Allergies Home Medications Medication Instructions Recorded Confirmed Type Budesonide/Formoterol Fumarate 2 puff INHALATION RT-BID 01/14/23 05/18/23 History [Symbicort 160-4.5 Mcg Inhaler] Levothyroxine Sodium [Synthroid] 125 mcg PO DAILY 01/14/23 05/18/23 History Albuterol Inhaler [Ventolin Hfa 2 puff INHALATION RT-Q6H PRN #1 01/20/23 05/18/23 Rx Inhaler] each ARIPiprazole [Abilify] 10 mg PO DAILY 05/18/23 05/18/23 History Escitalopram [Lexapro] 20 mg PO DAILY 05/18/23 05/18/23 History Multivitamins, Thera [Multivitamin 1 tab PO DAILY 05/18/23 05/18/23 History (formulary)] Nitroglycerin Sl Tabs [Nitrostat] 0.4 mg SL Q5M PRN 05/18/23 05/18/23 History lamoTRIgine [LaMICtal] 150 mg PO DAILY 05/18/23 05/18/23 History traZODone HCL 100 mg PO HS 05/18/23 05/18/23 History Allergies Allergy/AdvReac Type Severity Reaction Status Date / Time clindamycin Allergy Unknown Rash/Hives Verified 03/08/23 19:03 acetylcysteine AdvReac Anaphylaxis Verified 03/08/23 19:03 [From Mucomyst] citalopram [From Celexa] AdvReac Hallucinati Verified 03/08/23 19:03 ons diphenhydramine HCl AdvReac Rapid Verified 03/08/23 19:03 [From Benadryl] Heart Rate Physical Exam Vitals: Vital Signs Temp Pulse Pulse Resp BP BP Pulse Ox 05/19/23 07:45 98.4 F 85 16 151/90 99 05/19/23 02:00 98.1 F 82 17 153/87 96 05/18/23 21:00 97.9 F 93 16 116/79 99 05/18/23 16:02 97.8 F 95 20 123/79 95 Intake and Output 05/18/23 05/19/23 05/19/23 22:59 06:59 14:59 Other: # Voids 1 Weight 77.111 kg Results CBC & Chem 7: 05/18/23 17:13 05/18/23 17:13 Labs: Abnormal Lab Results - Last 24 Hours (Table) 05/18/23 Range/Units 17:13 Glucose 100 H (74-99) mg/dL Serum Alcohol 300 H* mg/dL Thrombosis Risk Factor Assmnt - Choose All That Apply Any of the Below Risk Factors Present?: No Other Risk Factors: Yes Each Risk Factor Represents 2 Points: Age 61-74 years Thrombosis Risk Factor Assessment Total Risk Factor Score: 2 Thrombosis Risk Factor Assessment Level: Low Risk
--- NOTE | 2023-05-19 13:57 | P.DS ---
Providers Date of admission: 05/18/23 20:11 Expected date of discharge: 05/19/23 Attending physician: Chris Tiwari Consults: 05/18/23 20:11 Consult Physician Urgent Consulting Provider: Rahul Colón Consult Reason/Comments: Suicidal ideation Do you want consulting provider notified?: Yes Primary care physician: [facility] Course: Discharge diagnoses; Suicidal thoughts Alcohol intoxication Major depression Hospital course; patient is 62-year-old lady with past medical history significant for depression, hypothyroidism, COPD the ER because of suicidal thoughts. Patient stated that she has been drinking a lot for the last week. Patient has been very depressed and not a lot of social stressors. Patient stated that she has thoughts of killing herself. Patient does not have a plan yet. Denies any auditory or visual hallucinations. Because of suicidal thoughts, patient came to the ER Initial lab work done in the ER showed WBC 5.9, hemoglobin 13.2, platelet count 188, sodium 144, potassium 4.5, BUN 11, creatinine 0.63, serum alcohol level 300 Patient admitted to medicine service Patient was seen by psychiatry, they cleared the patient for discharge, don't recommend any inpatient psychiatric admission at this time. Patient being discharged in stable condition PHYSICAL EXAMINATION: GENERAL: The patient is alert and oriented x3, not in any acute distress. Well developed, well nourished. HEENT: Pupils are round and equally reacting to light. EOMI. No scleral icterus. No conjunctival pallor. Normocephalic, atraumatic. No pharyngeal erythema. No thyromegaly. CARDIOVASCULAR: S1 and S2 present. No murmurs, rubs, or gallops. PULMONARY: Chest is clear to auscultation, no wheezing or crackles. ABDOMEN: Soft, nontender, nondistended, normoactive bowel sounds. No palpable organomegaly. MUSCULOSKELETAL: No joint swelling or deformity. EXTREMITIES: No cyanosis, clubbing, or pedal edema. NEUROLOGICAL: Gross neurological examination did not reveal any focal deficits. SKIN: No rashes. Patient Condition at Discharge: Good Plan - Discharge Summary Discharge Rx Participant: Yes New Discharge Prescriptions: New Folic Acid 1 mg PO DAILY #30 tab Thiamine [Vitamin B-1] 100 mg PO DAILY #30 tab Continue Levothyroxine Sodium [Synthroid] 125 mcg PO DAILY traZODone HCL 100 mg PO HS Escitalopram [Lexapro] 20 mg PO DAILY ARIPiprazole [Abilify] 10 mg PO DAILY Budesonide/Formoterol Fumarate [Symbicort 160-4.5 Mcg Inhaler] 2 puff INHALATION RT-BID Albuterol Inhaler [Ventolin Hfa Inhaler] 2 puff INHALATION RT-Q6H PRN #1 each PRN Reason: Shortness Of Breath lamoTRIgine [LaMICtal] 150 mg PO DAILY Multivitamins, Thera [Multivitamin (formulary)] 1 tab PO DAILY Nitroglycerin Sl Tabs [Nitrostat] 0.4 mg SL Q5M PRN PRN Reason: Chest Pain Discharge Medication List Budesonide/Formoterol Fumarate [Symbicort 160-4.5 Mcg Inhaler] 2 puff INHALATION RT-BID 01/14/23 [History] Levothyroxine Sodium [Synthroid] 125 mcg PO DAILY 01/14/23 [History] Albuterol Inhaler [Ventolin Hfa Inhaler] 2 puff INHALATION RT-Q6H PRN #1 each 01/20/23 [Rx] ARIPiprazole [Abilify] 10 mg PO DAILY 05/18/23 [History] Escitalopram [Lexapro] 20 mg PO DAILY 05/18/23 [History] Multivitamins, Thera [Multivitamin (formulary)] 1 tab PO DAILY 05/18/23 [History] Nitroglycerin Sl Tabs [Nitrostat] 0.4 mg SL Q5M PRN 05/18/23 [History] lamoTRIgine [LaMICtal] 150 mg PO DAILY 05/18/23 [History] traZODone HCL 100 mg PO HS 05/18/23 [History] Folic Acid 1 mg PO DAILY #30 tab 05/19/23 [Rx] Thiamine [Vitamin B-1] 100 mg PO DAILY #30 tab 05/19/23 [Rx] Follow up Appointment(s)/Referral(s): Karan Huitron MD [Primary Care Provider] - 1-2 days Discharge Disposition: HOME SELF-CARE
[2023-05-19] MEDS ORDERED: FOLIC ACID 1 MG TAB PO SCH (14:00)
--- NOTE | 2023-05-19 14:08 | P.CN ---
Psychiatric Consult - . Consult date: 05/19/23 Consult:: 05/19/23 13:05 IDENTIFYING DATA: Patient is a , unemployed, 62-year-old female with significant history of bipolar disorder and alcohol use disorder, was staying at a hotel and previously a three-quarter house reason for consultation: "suicidal ideations" HPI: Patient presented to the hospital complaining of relapse in drinking, depression and suicidal ideations, no intent or plan. Patient blood alcohol level was 300 on admission and was admitted to the medical floors for withdrawal management. Patient has a history of several psychiatric inpatient admissions, history of bipolar disorder and alcohol use disorder. Patient was seen at the bedside today and has a one-to-one sitter on her. She was agreeable to speak to marketing underwriter today was fairly calm and cooperative. She did have mild tremors in her hands while speaking. She claims that she was having "problems at the three- quarter house" and states that she left all to see house about one and a half weeks ago. 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 She states that it is a new job for her sodium is "stressful". She claims that that may have been the reason for her starting to relapse. States that for the past 3 or 4 days she has been binging on wine, states that she drank 2 bottles of Chardonnay before coming into the hospital. States that her bipolar has mainly depression however now states that her mood is "fine" and states that she often says things she doesnt mean when shes drunk. she claims that [facility] told [facility] she was suicidal and they managed to bring her to the hospital. Claims that she did have a panic attack before going in to work the other day. States that at this time her mood is "okay" and denies any anxiety. States that she does have significant for more so about relapsing. She claims that she is connected with several rehabs and also outpatient substance use programs in the community and states that she feels safe to go back to the hotel. We reviewed the risks of not being in the hospital and going to medically manage the degree of withdrawal from the alcohol was a patient continues to focus on discharge and going back to work. At this time patient is denying any suicidal or homicidal ideations intent or plan, denies any access to guns were locked, denies any auditory or visual hallucinations. PAST PSYCHIATRIC HISTORY: Patient states that he has previously diagnosed bipolar 2 disorder and alcohol use disorder. The patient reports that she does well on her current regimen of Lamictal, Lexapro, and trazodone and Abilify. Patient is planning to attend [facility] and follows up with Dr. Aguayo as her psychiatrist. She does report one prior attempt at suicide in the past by jumping in front of a train. PMH: Past Medical History: Asthma, Cancer, Hypertension, Thyroid Disorder Additional Past Medical History / Comment(s): History of goiter status post thyroidectomy, questionable history of thyroid cancer although this is not clear, bipolar disorder, depression, history of suicidal ideations, history of drug overdose, alcoholism, seasonal rhinitis, psoriasis, breast cysts, history of broken toes in the right foot, hypertension, History of Any Multi-Drug Resistant Organisms: None Reported Past Surgical History: No Surgical Hx Reported Additional Past Surgical History / Comment(s): Thyroidectomy 1999, SKIN NEVI REMOVED Past Anesthesia/Blood Transfusion Reactions: Previous Problems w/ Anesthesia, Postoperative Nausea & Vomiting (PONV) Additional Past Anesthesia/Blood Transfusion Reaction / Comment(s): Pt lives with in their home. They have been together 12 yrs. Pt is normally independent. Pt is an alcoholic. She is feeling more depressed lately and ashamed of her alcoholism. PT STATED SHE IS A BINGE DRINKER AND IS A BLACK OUT DRINKER,THINKS SHE STARTED DRINKING 4-5 DAYS AGO 3 PINTS A DAY AND WHEN COMING DOWN DRANK SUAVE HAIR SPRAY( does not allow alcohol in the home so pt has drinks hand construction specialist or hair spray per her ). Pt no longer has a drivers license- she has had 2 DUI's. 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 She is seen at [facility] by Dr. Baez and has a councelor-NICO. She has alot of faith friends. drives her to her appts. Past Psychological History: Anxiety, Bipolar, Depression Smoking Status: Never smoker Past Alcohol Use History: Abuse, Daily, Heavy Past Drug Use History: None Reported ALLERGIES: Allergy/AdvReac Type Severity Reaction Status Date / Time clindamycin Allergy Unknown Rash/Hives Verified 12/20/22 09:47 citalopram From Celexa AdvReac Hallucinati Verified 12/20/22 09:47 ons diphenhydramine HCl AdvReac Rapid Verified 12/20/22 09:47 From Benadryl Heart Rate CHEMICAL DEPENDENCY HISTORY: Patient denies any other recreational drug use except for alcohol as noted above. Patient states that she started drinking at the age of 24, she has been to rehabilitation times in the past. FAMILY PSYCHIATRIC/SUBSTANCE USE HISTORY: Patient reports that her mother had depression and her father was an alcoholic. She reports her sister was bipolar. She reports that her brother abuse alcohol and drugs. SOCIAL HISTORY: Patient was born and raised in [place], [place]. She is after her second 6 years ago. She has no children. She is currently unemployed. She is currently homeless. 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 MENTAL STATUS EXAM: General Appearance: Patient appears to have short hair, perrin, be stated age is alert, directable, and attempts to cooperate. 2 professional and focused on discharge, Patient appears to have improving hygiene and grooming. Behavior: Patient is seated without any agitated behavior. Eye contact is fair. I'll tremors in her hands. Superficial and focused on discharge. Speech: Patient's speech is fluent and nonpressured. Mood/Affect: Patient reports their mood is depressed, affect is congruent and withdrawn. Suicidality/Homicidality: Patient denies having any homicidal ideation intent or plan. Denies any suicidal ideation, intent or plan. Perceptions: Patient denies any visual hallucinations and denies any auditory hallucinations Though content/process: There is no evidence of any delusional thought content and thought process is linear and goal-directed. Focused on discharge, minimizing her need to stay in the hospital and for rehab. Memory and concentration: AOX3, grossly intact for the purposes of this session. Can spell "WORLD" backwards Judgment and insight: poor IMPRESSIONS: Bipolar 2 disorder Alcohol use disorder, severe dependence PLAN: -At this time patient DOES NOT meet criteria for inpatient psychiatric admission. -Patient DOES have decision making capacity at this time and is able to reason through and communicate/appreciate the risks, benefits and alternatives to treatment. Patient is focused on being discharged and marketing underwriter reviewed the risks and potential harm in cluding severe w/d and possibly if she goes home too early, patient understood and agreed. -Would recommend the following medication changes/additions: Started acamprosate 666 mg 3 times a day for alcohol cravings that she's been on in the past, increase trazodone 150 mg daily/insomnia, Valium scheduled with the plan to taper down 5 mg 3 times a day for alcohol withdrawal, [facility] protocol with when necessary Ativan for alcohol withdrawal. Monitor vital signs. Can continue with her other psychiatric outpatient medications including Abilify, Lamictal, Lexapro. -Patient is already connected with [facility], she states that she is in the process of getting in contact with [employer] and also [employer] at [place]. -Fire Control Technician G spoke with patient about substance abuse and the harmful effects on medical and mental health, patient verbally understood and agreed. -leather production worker to provide patient substance use treatment resources including AA/NA meetings in the community. -leather production worker to provide patient with access line number to call for inpatient substance rehab -Communicated plan to patient's nurse -Psychiatry will sign off at this time -Please contact with any questions.
[2023-05-19] MEDS ORDERED: ACAMPROSATE CALCIUM 333 MG TABLET.DR PO SCH (16:00)
[2023-05-19] MEDS ORDERED: diazePAM 5 MG TAB PO SCH (16:00)
[2023-05-19] MEDS ORDERED: traZODone HCL 100 MG TAB PO SCH (21:00)
[2023-05-19] MEDS ORDERED: traZODone HCL 50 MG TAB PO SCH (21:00)
== END 2023-05-19 14:52 | disposition home or self-care (01) | DRG 775 ==
LOC: EC 15:58 → 4SSUR 20:11
PROVIDERS: ADMIT Hospitalist; ATTEND Hospitalist
DX: F10.229 Alcohol dependence with intoxication, unspecified (principal); Y90.8 Blood alcohol level of 240 mg/100 ml or more; E03.9 Hypothyroidism, unspecified; F31.9 Bipolar disorder, unspecified; J30.2 Other seasonal allergic rhinitis; F41.9 Anxiety disorder, unspecified; I10 Essential (primary) hypertension; R45.851 Suicidal ideations; Z79.51 Long term (current) use of inhaled steroids; J44.9 Chronic obstructive pulmonary disease, unspecified; F31.81 Bipolar II disorder; L40.9 Psoriasis, unspecified; Z71.41 Alcohol abuse counseling and surveillance of alcoholic; Z76.5 Malingerer [conscious simulation]; Z79.890 Hormone replacement therapy; Z79.899 Other long term (current) drug therapy; Z88.1 Allergy status to other antibiotic agents; Z88.8 Allergy status to other drugs, medicaments and biological substances
CPT/HCPCS: 36415; 80053; 80320; 82075; 83735; 85025; 94640; 99285

== ENCOUNTER 2023-07-09 00:15 | Observation (INO) | payer OTHER ==
[2023-07-09] MEDS ORDERED: SODIUM CHLORIDE 0.9% 500 ML 500 ML IV STA (00:26)
[2023-07-09] MEDS ORDERED: SODIUM CHLORIDE 0.9% 1,000 ML IV STA ×2 (00:26)
--- NOTE | 2023-07-09 00:27 | ED ---
Alcohol HPI - General Chief Complaint: Alcohol Stated Complaint: ETOH Time Seen by Provider: 07/09/23 00:17 Source: patient, EMS, RN notes reviewed, old records reviewed Mode of arrival: EMS Limitations: no limitations - History of Present Illness Initial Comments: This is a 62-year-old female to the emergency department today. Patient presents today for evaluation regards to severe alcohol intoxication, depression, weakness, patient well. Patient is a poor story unable to provide significant accurate history secondary to clinical intoxication MD Complaint: alcohol intoxication Last Drink: just MILLER [employer] WET [employer]ESS -: minute(s) Previous Visits for Alcohol Intoxication?: Yes Recent Trauma: Yes Associated Symptoms: nausea, depression Treatments Prior to Arrival: none Chronic Alcohol Use: Yes - Related Data Home Medications Medication Instructions Recorded Confirmed Escitalopram [Lexapro] 20 mg PO DAILY 05/18/23 07/10/23 Nitroglycerin Sl Tabs [Nitrostat] 0.4 mg SL Q5M PRN 05/18/23 07/10/23 ARIPiprazole [Abilify] 7.5 mg PO DAILY 07/09/23 07/10/23 Levothyroxine Sodium [Synthroid] 150 mcg PO DAILY 07/09/23 07/10/23 lamoTRIgine [LaMICtal] 200 mg PO DAILY 07/09/23 07/10/23 traZODone HCL [Desyrel] 100 mg PO HS 07/09/23 07/10/23 Previous Rx's Medication Instructions Recorded Albuterol Inhaler [Ventolin Hfa 2 puff INHALATION RT-Q6H PRN #1 01/20/23 Inhaler] each Thiamine [Vitamin B-1] 100 mg PO DAILY #30 tab 07/12/23 Allergies Allergy/AdvReac Type Severity Reaction Status Date / Time clindamycin Allergy Unknown Rash/Hives Verified 07/10/23 20:51 acetylcysteine AdvReac Anaphylaxis Verified 07/10/23 20:51 [From Mucomyst] citalopram [From Celexa] AdvReac Hallucinati Verified 07/10/23 20:51 ons diphenhydramine HCl AdvReac Rapid Verified 07/10/23 20:51 [From Benadryl] Heart Rate Review of Systems ROS Statement: Those systems with pertinent positive or pertinent negative responses have been documented in the HPI. ROS Other: All systems not noted in ROS Statement are negative. Past Medical History Past Medical History: Asthma, Cancer, Hypertension, Thyroid Disorder Additional Past Medical History / Comment(s): History of goiter status post thyroidectomy, questionable history of thyroid cancer although this is not clear, bipolar disorder, depression, history of suicidal ideations, history of drug overdose, alcoholism, seasonal rhinitis, psoriasis, breast cysts, history of broken toes in the right foot, hypertension, History of Any Multi-Drug Resistant Organisms: None Reported Past Surgical History: No Surgical Hx Reported Additional Past Surgical History / Comment(s): Thyroidectomy 1999, SKIN NEVI REMOVED Past Anesthesia/Blood Transfusion Reactions: Previous Problems w/ Anesthesia, Postoperative Nausea & Vomiting (PONV) Additional Past Anesthesia/Blood Transfusion Reaction / Comment(s): patient states she is homeless. Pt is normally independent. Pt is an alcoholic. She is feeling more depressed lately and ashamed of her alcoholism. PT STATED SHE IS A BINGE DRINKER AND IS A BLACK OUT DRINKER,THINKS SHE STARTED DRINKING 4-5 DAYS AGO 3 PINTS A DAY AND WHEN COMING DOWN DRANK SUAVE HAIR SPRAY Pt no longer has a drivers license- she has had 2 DUI's. 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 She is seen at [facility]. Past Psychological History: Anxiety, Bipolar, Depression Smoking Status: Never smoker Past Alcohol Use History: Abuse, Daily, Heavy Past Drug Use History: None Reported - Past Family History Father Family Medical History: Cancer Additional Family Medical History / Comment(s): Father at age 64 of esop hageal cancer. Father was an alcoholic and had cirrhosis of the liver. Mother Family Medical History: Cancer Additional Family Medical History / Comment(s): Mother of breast cancer at age 42yrs. General Exam General appearance: appears intoxicated Head exam: Present: atraumatic, normocephalic, normal inspection Eye exam: Present: normal appearance, PERRL, EOMI. Absent: scleral icterus, conjunctival injection, periorbital swelling ENT exam: Present: normal exam, mucous membranes moist Neck exam: Present: normal inspection. Absent: tenderness, meningismus, lymphadenopathy Respiratory exam: Present: normal lung sounds bilaterally. Absent: respiratory distress, wheezes, rales, rhonchi, stridor Cardiovascular Exam: Present: regular rate, normal rhythm, normal heart sounds. Absent: systolic murmur, diastolic murmur, rubs, gallop, clicks GI/Abdominal exam: Present: soft, normal bowel sounds. Absent: distended, t enderness, guarding, rebound, rigid Extremities exam: Present: normal inspection, full ROM, normal capillary refill. Absent: tenderness, pedal edema, joint swelling, calf tenderness Back exam: Present: normal inspection Neurological exam: Present: alert, oriented X3, CN II-XII intact Psychiatric exam: Present: normal affect, normal mood Skin exam: Present: warm, dry, intact, normal color. Absent: rash Course Vital Signs 07/09/23 07/09/23 00:16 03:11 Temperature 98.1 F 98.1 F Pulse Rate 79 80 Respiratory 18 20 Rate Blood Pressure 117/67 132/81 O2 Sat by Pulse 95 96 Oximetry - Reevaluation(s) Reevaluation #1: 07/09/23 02:01 Attic record is reviewed Reevaluation #2: 07/09/23 02:01 Patient symptoms unchanged Reevaluation #3: 07/09/23 02:01 Patient informed results questions answered Reevaluation #4: 07/09/23 02:01 Was pt. sent in by a medical professional or institution (, PA, [facility], urgent care, hospital, or half-way...) When possible be specific @ -no Did you speak to anyone other than the patient for history (EMS, parent, family, police, friend...)? What history was obtained from this source @ -no Did you review nursing and triage notes (agree or disagree)? Why? @ -agree Are old charts reviewed (outside hosp., previous admission, EMS record, old EKG, old radiological studies, urgent care reports/EKG's, half-way records)? Report findings @ -yes Differential Diagnosis (chest pain, altered mental status, abdominal pain women, abdominal pain men, vaginal bleeding, weakness, fever, dyspnea, syncope, headache, dizziness, GI bleed, back pain, seizure, CVA, palpatations, mental health, musculoskeletal)? @ -prior EKG interpreted by me (3pts min.). @ -no X-rays interpreted by me (1pt min.). @ -no CT interpreted by me (1pt min.). @ -no U/S interpreted by me (1pt. min.). @ -no What testing was considered but not performed or refused? (CT, X-rays, U/S, labs)? Why? @ -none What meds were considered but not given or refused? Why? @ -none Did you discuss the management of the patient with other professionals (professionals i.e. , PA, [facility], lab, RT, psych nurse, delinquency prevention social worker, executive director, teacher, casino surveillance officer, case filler)? Give summary @ -no Was smoking cessation discussed for >3mins.? @ -no Was critical care preformed (if so, how long)? @ -no Were there social determinants of health that impacted care today? How? (Homelessness, low income, unemployed, alcoholism, drug addiction, transportation, low edu. Level, literacy, decrease access to med. care, long-term, rehab)? @ -none Was there de-escalation of care discussed even if they declined (Discuss DNR or withdrawal of care, Hospice)? DNR status @ -no What co-morbidities impacted this encounter? (DM, HTN, Smoking, COPD, CAD, Cancer, CVA, ARF, Chemo, Hep., AIDS, mental health diagnosis, sleep apnea, morbid obesity)? @ -none Was patient admitted / discharged? Hospital course, mention meds given and route, prescriptions, significant lab abnormalities, going to OR and other pertinent info. @ - 62 female to be admitted for severe alcohol intoxication likely impending alcohol withdrawal and further evaluation monitoring regards to depression Admitted Undiagnosed new problem with uncertain prognosis? @ -no Drug Therapy requiring intensive monitoring for toxicity (Heparin, Nitro, Insulin, Cardizem)? @ -no Were any procedures done? @ -no Diagnosis/symptom? @ -Alcohol intoxication Acute, or Chronic, or Acute on Chronic? @ -Acute Uncomplicated (without systemic symptoms) or Complicated (systemic symptoms)? @ -Complicated Side effects of treatment? @ -no Exacerbation, Progression, or Severe Exacerbation? @ -exacerbation Poses a threat to life or bodily function? How? (Chest pain, USA, PR, pneumonia, PE, COPD, DKA, ARF, appy, cholecystitis, CVA, Diverticulitis, Homicidal, Suicidal, threat to staff... and all critical care pts) @ -yes with significant intoxication and depression Reevaluation #5: 07/09/23 02:01 Differential Altered Mental Status: Hypoglycemia, DKA, hypercapnia, ETOH, overdose, CO poisoning, trauma, myxedema coma, HTN encephalopathy, infection, encephalitis, psychosis, intercranial hemorrhage, hepatic encephalopathy, meningitis, CVA, this is not meant to be an all-inclusive list - Consultations Consultation #1: Spoke with Dr. Pickett who agrees to admit this patient Medical Decision Making - Medical Decision Making 62 female to be admitted for severe alcohol intoxication likely impending alcohol withdrawal and further evaluation monitoring regards to depression - Lab Data Result diagrams: 07/10/23 06:16 07/10/23 06:16 Lab Results 07/09/23 07/09/23 Range/Units 00:33 01:15 WBC 3.7 L (3.8-10.6) k/uL RBC 3.58 L (3.80-5.40) m/uL Hgb 11.8 (11.4-16.0) gm/dL Hct 34.5 (34.0-46.0) % MCV 96.3 (80.0-100.0) fL MCH 33.0 (25.0-35.0) pg MCHC 34.3 (31.0-37.0) g/dL RDW 14.6 (11.5-15.5) % Plt Count 135 L (150-450) k/uL MPV 8.2 Neutrophils % 60 % Lymphocytes % 30 % Monocytes % 7 % Eosinophils % 1 % Basophils % 0 % Neutrophils # 2.2 (1.3-7.7) k/uL Lymphocytes # 1.1 (1.0-4.8) k/uL Monocytes # 0.2 (0-1.0) k/uL Eosinophils # 0.1 (0-0.7) k/uL Basophils # 0.0 (0-0.2) k/uL Sodium 145 (137-145) mmol/L Potassium 3.5 (3.5-5.1) mmol/L Chloride 111 H (98-107) mmol/L Carbon Dioxide 24 (22-30) mmol/L Anion Gap 10 mmol/L BUN 10 (7-17) mg/dL Creatinine 0.70 (0.52-1.04) mg/dL Est GFR (CKD-EPI)AfAm >90 (>60 ml/min/1.73 sqM) Est GFR (CKD-EPI)NonAf >90 (>60 ml/min/1.73 sqM) Glucose 102 H (74-99) mg/dL Calcium 8.6 (8.4-10.2) mg/dL Phosphorus 4.6 H (2.5-4.5) mg/dL Magnesium 1.7 (1.6-2.3) mg/dL Total Bilirubin 0.3 (0.2-1.3) mg/dL AST 66 H (14-36) U/L ALT 74 H (4-34) U/L Alkaline Phosphatase 52 (38-126) U/L Total Protein 6.6 (6.3-8.2) g/dL Albumin 3.7 (3.5-5.0) g/dL Lipase 113 (23-300) U/L Serum Alcohol 244 H* mg/dL Disposition Clinical Impression: Major depressive disorder, recurrent, Alcohol use disorder, Alcohol intoxication, Acute anxiety Disposition: ADMITTED IP TO THIS HOSP Condition: Fair Is patient prescribed a controlled substance at d/c from ED?: No Time of Disposition: 02:00
[2023-07-09 01:05] LABS: ALT 74 U/L (4-34); AST 66 U/L (14-36); African American GFR (CKD) >90 (>60 ml/min/1.73 sqM); Albumin 3.7 g/dL (3.5-5.0); Alkaline Phosphatase 52 U/L (38-126); Anion Gap 10 mmol/L; Blood Urea Nitrogen 10 mg/dL (7-17); Calcium 8.6 mg/dL (8.4-10.2); Carbon Dioxide 24 mmol/L (22-30); Chloride 111 mmol/L (98-107); Glucose 102 mg/dL (74-99); Lipase 113 U/L (23-300); Magnesium 1.7 mg/dL (1.6-2.3); Non-African American GFR(CKD) >90 (>60 ml/min/1.73 sqM); Phosphorus 4.6 mg/dL (2.5-4.5); Potassium 3.5 mmol/L (3.5-5.1); Sodium 145 mmol/L (137-145); Total Bilirubin 0.3 mg/dL (0.2-1.3); Total Protein 6.6 g/dL (6.3-8.2)
[2023-07-09 01:09] LABS: Alcohol 244 mg/dL
[2023-07-09 01:29] LABS: Basophils % (A) 0 %; Eosinophils # (A) 0.1 k/uL (0-0.7); Eosinophils % (A) 1 %; HCT 34.5 % (34.0-46.0); HGB 11.8 gm/dL (11.4-16.0); Lymphocytes # (A) 1.1 k/uL (1.0-4.8); Lymphocytes % (A) 30 %; MCHC 34.3 g/dL (31.0-37.0); MCV 96.3 fL (80.0-100.0); Mean Platelet Volume 8.2; Monocytes # (A) 0.2 k/uL (0-1.0); Monocytes % (A) 7 %; Neutrophils # (A) 2.2 k/uL (1.3-7.7); Neutrophils % (A) 60 %; Platelet Count 135 k/uL (150-450); RBC 3.58 m/uL (3.80-5.40); RDW 14.6 % (11.5-15.5); WBC 3.7 k/uL (3.8-10.6)
[2023-07-09] MEDS ORDERED: NALOXONE 0.4 MG/ML 1 ML VIAL IV PRN (01:58)
[2023-07-09] MEDS ORDERED: THIAMINE 100 MG/ML 2 ML VIAL IM STA (01:58)
[2023-07-09] MEDS ORDERED: ONDANSETRON 4 MG/2 ML VIAL IVP PRN (01:58)
[2023-07-09] MEDS ORDERED: LORazepam 2 MG/ML INJ IV PRN ×3 (01:58)
[2023-07-09] MEDS: SODIUM CHLORIDE 0.9% 1,000 ML IV SCH ×4 (02:37→23:17)
[2023-07-09] MEDS: LORazepam 2 MG/ML INJ IV PRN ×3 (03:32→23:16)
[2023-07-09] MEDS: MULTIVITAMINS, THERA 1 EACH TAB PO SCH (08:53)
[2023-07-09] MEDS: FOLIC ACID 1 MG TAB PO SCH (08:53)
--- NOTE | 2023-07-09 11:57 | P.CN ---
Psychiatric Consult - . Consult date: 07/09/23 Consult:: 07/09/23 11:52 Patient Name: Rosa Saba Date of : 1960 Patient Status: Observation Attending Provider: Chris Tiwari Date: 07/09/23 Psychiatric consultation by Kan Avila M.D. This is a psychiatric assessment on Rosa Saba who is a 62-year-old female and was hospitalized with severe alcohol intoxication Patient reports that she was trying to detox herself at home but was unable to do so and was going through extreme shakes and anxiety She reports that she was in [facility] facility for alcohol use just about a week ago and had a relapse immediately after she came out of their She admits that she has chronic problems with alcoholism She said that is also runs in her family with most of the family members She says that she currently lives with a friend and has never been or have any children She says that 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 Fair eye contact Speech: Patient's speech is with normal volume, spontaneity, and tone. Mood/Affect: Mood is "euthymic' affect is flat Suicidality/Homicidality: Patient denies suicidal ideation. Perceptions: The patient does not endorse auditory hallucinations but no visual hallucinations. Though content/process: Abstract coherent and relevant Memory and concentration: Grossly intact for the purposes of this session. Judgment and insight: Fair Diagnostic impression: Adjustment disorder with mixed emotional features Mood disorder alcohol related mild Alcohol use disorder chronic recurrent Plan: The patient does not meet the criteria for inpatient psychiatric hospitalization Patient is a good candidate for immediate detox and stabilization Patient denies any history of seizure disorder Patient is a good candidate for referral to inpatient/outpatient alcohol use program as well as referral to AA and NA before discharge Thank you very much for your kind Referral and please contact me if he had any further questions Kan Avila M.D.
[2023-07-09] MEDS ORDERED: IBUPROFEN 400 MG TAB PO PRN (23:08)
[2023-07-10] MEDS: SODIUM CHLORIDE 0.9% 1,000 ML IV SCH (08:26)
[2023-07-10] MEDS ORDERED: ALBUTEROL NEBULIZED 2.5 MG/3 ML INHALATION PRN (08:29)
[2023-07-10] MEDS: MULTIVITAMINS, THERA 1 EACH TAB PO SCH (08:31)
[2023-07-10] MEDS: FOLIC ACID 1 MG TAB PO SCH (08:31)
--- NOTE | 2023-07-10 08:31 | P.HPIM ---
History of Present Illness H&P Date: 07/09/23 Chief Complaint: Alcohol intoxication 62-year-old female, history of hypertension and EtOH abuse, presents to the emergency department today for evaluation regards to severe alcohol intoxication, depression, weakness, not feeling well. Patient is a poor historian and unable to provide significant accurate history secondary to clinical intoxication Blood work completed in ED reveals a WBC of 2.7, hemoglobin of 11.8, platelet count of 135, sodium 145, potassium 3.5, BUN/creatinine of 10/0.7 and blood glucose of 102, serum alcohol level of 244, AST 66, ALT 74, phosphorus elevated at 1.5 Patient is being admitted for alcohol intoxication and further treatment for alcohol abuse disorder and major depression and anxiety Review of Systems ROS unobtainable: due to mental status Past Medical History Past Medical History: Asthma, Cancer, Hypertension, Thyroid Disorder Additional Past Medical History / Comment(s): History of goiter status post thyroidectomy, questionable history of thyroid cancer although this is not clear, bipolar disorder, depression, history of suicidal ideations, history of drug overdose, alcoholism, seasonal rhinitis, psoriasis, breast cysts, history of broken toes in the right foot, hypertension, History of Any Multi-Drug Resistant Organisms: None Reported Past Surgical History: No Surgical Hx Reported Additional Past Surgical History / Comment(s): Thyroidectomy 1999, SKIN NEVI REMOVED Past Anesthesia/Blood Transfusion Reactions: Previous Problems w/ Anesthesia, Postoperative Nausea & Vomiting (PONV) Additional Past Anesthesia/Blood Transfusion Reaction / Comment(s): patient states she is homeless. Pt is normally independent. Pt is an alcoholic. She is feeling more depressed lately and ashamed of her alcoholism. PT STATED SHE IS A BINGE DRINKER AND IS A BLACK OUT DRINKER,THINKS SHE STARTED DRINKING 4-5 DAYS AGO 3 PINTS A DAY AND WHEN COMING DOWN DRANK SUAVE HAIR SPRAY Pt no longer has a drivers license- she has had 2 DUI's. 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 She is seen at [facility]. Past Psychological History: Anxiety, Bipolar, Depression Additional Psychological History / Comment(s): patient states she is homeless. Pt is normally independent. Pt is an alcoholic. She is feeling more depressed lately and ashamed of her alcoholism. Pt states she drinks a pint a day and today drank half a bottle of hairspray. Pt no longer has a drivers license- she has had 2 DUI's. 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 She is seen at [facility]. Smoking Status: Never smoker Past Alcohol Use History: Abuse, Daily, Heavy Additional Past Alcohol Use History / Comment(s): Pt agrees she is an alcoholic for greater than 20 years and comes from a family hx of abuse. Past Drug Use History: None Reported - Past Family History Father Family Medical History: Cancer Additional Family Medical History / Comment(s): Father at age 64 of esophageal cancer. Father was an alcoholic and had cirrhosis of the liver. Mother Family Medical History: Cancer Additional Family Medical History / Comment(s): Mother of breast cancer at age 42yrs. Medications and Allergies Home Medications Medication Instructions Recorded Confirmed Type Albuterol Inhaler [Ventolin Hfa 2 puff INHALATION RT-Q6H PRN #1 01/20/2312/30 Rx Inhaler] each Escitalopram [Lexapro] 20 mg PO DAILY 05/18/23 07/09/23 History Nitroglycerin Sl Tabs [Nitrostat] 0.4 mg SL Q5M PRN 05/18/23 07/09/23 History ARIPiprazole [Abilify] 7.5 mg PO DAILY 07/09/23 07/09/23 History Levothyroxine Sodium [Synthroid] 150 mcg PO DAILY 07/09/23 07/09/23 History lamoTRIgine [LaMICtal] 200 mg PO DAILY 07/09/23 07/09/23 History traZODone HCL [Desyrel] 100 mg PO HS 07/09/23 07/09/23 History Allergies Allergy/AdvReac Type Severity Reaction Status Date / Time clindamycin Allergy Unknown Rash/Hives Verified 07/09/23 11:23 acetylcysteine AdvReac Anaphylaxis Verified 07/09/23 11:23 [From Mucomyst] citalopram [From Celexa] AdvReac Hallucinati Verified 07/09/23 11:23 ons diphenhydramine HCl AdvReac Rapid Verified 07/09/23 11:23 [From Benadryl] Heart Rate Physical Exam Vitals: Vital Signs Temp Pulse Pulse Resp BP BP BP 07/09/23 07:15 97.8 F 80 16 118/76 07/09/23 03:25 98.2 F 80 18 151/91 07/09/23 03:11 98.1 F 80 20 132/81 07/09/23 00:16 98.1 F 79 18 117/67 Pulse Ox 07/09/23 07:15 98 07/09/23 03:25 95 07/09/23 03:11 96 07/09/23 00:16 95 Intake and Output 07/08/23 07/09/23 07/09/23 22:59 06:59 14:59 Intake Total 1040 Balance 1040 Intake: Intake, IV Titration 1040 Amount Sodium Chloride 0.9% 1, 1040 000 ml @ 130 mls/hr IV . Q7H42M [facility] Rx#:[id number] Other: # Voids 1 Weight 77.111 kg General appearance: appears intoxicated Head exam: Present: atraumatic, normocephalic, normal inspection Eye exam: Present: normal appearance, PERRL, EOMI. Absent: scleral icterus, conjunctival injection, periorbital swelling Neck exam: Present: normal inspection. Absent: tenderness, meningismus, lymphadenopathy Respiratory exam: Present: normal lung sounds bilaterally. Absent: respiratory distress, wheezes, rales, rhonchi, stridor Cardiovascular Exam: Present: regular rate, normal rhythm, normal heart sounds. Absent: systolic murmur, diastolic murmur, rubs, gallop, clicks GI/Abdominal exam: Present: soft, normal bowel sounds. Absent: distended, tenderness, guarding, rebound, rigid Extremities exam: Present: normal inspection, full ROM, normal capillary refill. Absent: tenderness, pedal edema, joint swelling, calf tenderness Neurological exam: Present: alert, oriented X3, CN II-XII intact Psychiatric exam: Present: normal affect, normal mood Skin exam: Present: warm, dry, intact, normal color. Absent: rash Results CBC & Chem 7: 07/09/23 01:15 07/09/23 00:33 Labs: Abnormal Lab Results - Last 24 Hours (Table) 07/09/23 07/09/23 Range/Units 00:33 01:15 WBC 3.7 L (3.8-10.6) k/uL RBC 3.58 L (3.80-5.40) m/uL Plt Count 135 L (150-450) k/uL Chloride 111 H (98-107) mmol/L Glucose 102 H (74-99) mg/dL Phosphorus 4.6 H (2.5-4.5) mg/dL AST 66 H (14-36) U/L ALT 74 H (4-34) U/L Serum Alcohol 244 H* mg/dL Assessment and Plan Assessment: 1. Alcohol intoxication - Patient has been placed on IV fluids in form of normal saline at rate of 1 30 mL an hour; thiamine 100 mg daily folic acid 10 mg daily; Protonix 40 mg daily - [facility] protocol with Ativan 2. Chronic alcohol abuse; consult psychiatry 3. Recurrent major depression/anxiety; patient takes Abilify 7.5 mg daily, Lexapro 20 mg daily and Lamictal 200 mg daily - Psychiatric is consulted for medication review 4. Hypertension; currently not on any antihypertensive therapy 5. Hypothyroidism; levothyroxin 150 MCG daily DVT prophylaxis; SCDs CODE STATUS; full code
[2023-07-10] MEDS ORDERED: THIAMINE 100 MG TAB PO SCH (09:00)
[2023-07-10] MEDS ORDERED: ESCITALOPRAM 20 MG TAB PO SCH (09:00)
[2023-07-10] MEDS ORDERED: ARIPiprazole 5 MG TAB PO SCH (09:00)
[2023-07-10] MEDS ORDERED: LEVOTHYROXINE 75 MCG TAB PO SCH (09:00)
[2023-07-10] MEDS ORDERED: lamoTRIgine 100 MG TAB PO SCH (09:00)
[2023-07-10 09:04] LABS: Basophils # (A) 0.03 X 10*3/uL (0.00-0.10); Eosinophils # (A) 0.07 X 10*3/uL (0.04-0.35); Eosinophils % (A) 2.4 %; HGB 12.3 d/dL (12.0-15.0); Lymphocytes # (A) 0.75 X 10*3/uL (0.90-5.00); Lymphocytes % (A) 25.3 %; MCH 31.1 pg (27.0-32.0); MCHC 33.2 d/dL (32.0-37.0); MCV 93.4 FL (80.0-97.0); Mean Platelet Volume 10.8 FL (9.5-12.2); Monocytes # (A) 0.51 X 10*3/uL (0.20-1.00); Monocytes % (A) 17.2 %; NRBC Per 100 WBC 0 X 10*3/uL (0.00-0.01); Neutrophils % (A) 53.8 %; Platelet Count 144 X 10*3/uL (140-440); RBC 3.96 X 10*6/uL (4.10-5.20); RDW 14.5 % (11.5-14.5); WBC 2.97 X 10*3/uL (4.50-10.00)
[2023-07-10 09:42] LABS: Blood Urea Nitrogen 5.4 mg/dL (9.0-27.0); Calcium 8.8 mg/dL (8.7-10.3); Carbon Dioxide 26.2 mmol/L (21.6-31.8); Chloride 103 mmol/L (96-109); Glucose 111 mg/dL (70-110); Magnesium 1.7 mg/dL (1.5-2.4); Potassium 3.5 mmol/L (3.5-5.5); Sodium 142 mmol/L (135-145)
[2023-07-10 15:09] VITALS: BP 163/92; PULSE 79; RESP 18; TEMP 98.3
[2023-07-10] MEDS ORDERED: traZODone HCL 100 MG TAB PO SCH (21:00)
== END 2023-07-10 16:00 | disposition left against medical advice (07) ==
LOC: EC 00:15 → 6NMEDSUR 01:59
PROVIDERS: ADMIT Hospitalist; ATTEND Hospitalist
DX: F10.229 Alcohol dependence with intoxication, unspecified (principal); Y90.8 Blood alcohol level of 240 mg/100 ml or more; Z53.29 Procedure and treatment not carried out because of patient's decision for other reasons; F43.20 Adjustment disorder, unspecified; F10.24 Alcohol dependence with alcohol-induced mood disorder; F31.9 Bipolar disorder, unspecified; I10 Essential (primary) hypertension; J45.909 Unspecified asthma, uncomplicated; E04.9 Nontoxic goiter, unspecified; R53.1 Weakness; E89.0 Postprocedural hypothyroidism; L40.9 Psoriasis, unspecified; F41.9 Anxiety disorder, unspecified; Z79.899 Other long term (current) drug therapy; Z79.890 Hormone replacement therapy; Z88.1 Allergy status to other antibiotic agents; Z88.8 Allergy status to other drugs, medicaments and biological substances; Z80.0 Family history of malignant neoplasm of digestive organs; Z63.72 Alcoholism and drug addiction in family; Z83.49 Family history of other endocrine, nutritional and metabolic diseases; Z59.00 Homelessness unspecified
CPT/HCPCS: 96376; 96361 ×3; 96374; 96375; 96372; 99285; 36415; 80053; 80048; 83690; 83735 ×2; 84100; 85025 ×2; G0378 ×2; G0480; J2060; J3411; J2405; 80320

== ENCOUNTER 2023-07-10 20:16 | Observation (INO) | payer OTHER ==
[2023-07-10] MEDS ORDERED: SODIUM CHLORIDE 0.9% 1,000 ML IV STA (21:48)
[2023-07-10] MEDS ORDERED: THIAMINE 100 MG/ML 2 ML VIAL IM STA (21:48)
[2023-07-10] MEDS ORDERED: LORazepam 2 MG/ML INJ IV STA (21:48)
[2023-07-10] MEDS ORDERED: LORazepam 2 MG/ML INJ IV PRN ×2 (21:48)
--- NOTE | 2023-07-10 21:51 | ED ---
Alcohol HPI - General Chief Complaint: Alcohol Stated Complaint: ETOH Time Seen by Provider: 07/10/23 21:13 Source: patient, EMS, RN notes reviewed, old records reviewed Mode of arrival: EMS Limitations: altered mental status - History of Present Illness Initial Comments: This is a 62-year-old female to ER today. She presents today for altered mental status weakness not feeling well nausea and vomiting. Patient states she did sign out AMA from the hospital today she was not feeling well shaking and she did go home with her drinking. 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(s) Previous Visits for Alcohol Intoxication?: Yes Recent Trauma: Yes Associated Symptoms: nausea, vomiting Treatments Prior to Arrival: none Chronic Alcohol Use: Yes - Related Data Home Medications Medication Instructions Recorded Confirmed Escitalopram [Lexapro] 20 mg PO DAILY 05/18/23 07/10/23 Nitroglycerin Sl Tabs [Nitrostat] 0.4 mg SL Q5M PRN 05/18/23 07/10/23 ARIPiprazole [Abilify] 7.5 mg PO DAILY 07/09/23 07/10/23 Levothyroxine Sodium [Synthroid] 150 mcg PO DAILY 07/09/23 07/10/23 lamoTRIgine [LaMICtal] 200 mg PO DAILY 07/09/23 07/10/23 traZODone HCL [Desyrel] 100 mg PO HS 07/09/23 07/10/23 Previous Rx's Medication Instructions Recorded Albuterol Inhaler [Ventolin Hfa 2 puff INHALATION RT-Q6H PRN #1 01/20/23 Inhaler] each Allergies Allergy/AdvReac Type Severity Reaction Status Date / Time clindamycin Allergy Unknown Rash/Hives Verified 07/10/23 20:51 acetylcysteine AdvReac Anaphylaxis Verified 07/10/23 20:51 [From Mucomyst] citalopram [From Celexa] AdvReac Hallucinati Verified 07/10/23 20:51 ons diphenhydramine HCl AdvReac Rapid Verified 07/10/23 20:51 [From Benadryl] Heart Rate Review of Systems ROS Statement: Those systems with pertinent positive or pertinent negative responses have been documented in the HPI. ROS Other: All systems not noted in ROS Statement are negative. Past Medical History Past Medical History: Asthma, Cancer, Hypertension, Thyroid Disorder Additional Past Medical History / Comment(s): History of goiter status post thyroidectomy, questionable history of thyroid cancer although this is not clear, bipolar disorder, depression, history of suicidal ideations, history of drug overdose, alcoholism, seasonal rhinitis, psoriasis, breast cysts, history of broken toes in the right foot, hypertension, History of Any Multi-Drug Resistant Organisms: None Reported Past Surgical History: No Surgical Hx Reported Additional Past Surgical History / Comment(s): Thyroidectomy 1999, SKIN NEVI REMOVED Past Anesthesia/Blood Transfusion Reactions: Previous Problems w/ Anesthesia, Postoperative Nausea & Vomiting (PONV) Additional Past Anesthesia/Blood Transfusion Reaction / Comment(s): patient states she is homeless. Pt is normally independent. Pt is an alcoholic. She is feeling more depressed lately and ashamed of her alcoholism. PT STATED SHE IS A BINGE DRINKER AND IS A BLACK OUT DRINKER,THINKS SHE STARTED DRINKING 4-5 DAYS AGO 3 PINTS A DAY AND WHEN COMING DOWN DRANK SUAVE HAIR SPRAY Pt no longer has a drivers license- she has had 2 DUI's. 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 She is seen at [facility]. Past Psychological History: Anxiety, Bipolar, Depression Smoking Status: Never smoker Past Alcohol Use History: Abuse, Daily, Heavy Past Drug Use History: None Reported - Past Family History Father Family Medical History: Cancer Additional Family Medical History / Comment(s): Father at age 64 of esophageal cancer. Father was an alcoholic and had cirrhosis of the liver. Mother Family Medical History: Cancer Additional Family Medical History / Comment(s): Mother of breast cancer at age 42yrs. General Exam General appearance: appears intoxicated, anxious Head exam: Present: atraumatic, normocephalic, normal inspection Eye exam: Present: normal appearance, PERRL, EOMI. Absent: scleral icterus, conjunctival injection, periorbital swelling ENT exam: Present: normal exam, mucous membranes moist Neck exam: Present: normal inspection. Absent: tenderness, meningismus, lymphadenopathy Respiratory exam: Present: normal lung sounds bilaterally. Absent: respiratory distress, wheezes, rales, rhonchi, stridor Cardiovascular Exam: Present: regular rate, normal rhythm, normal heart sounds. Absent: systolic murmur, diastolic murmur, rubs, gallop, clicks GI/Abdominal exam: Present: soft, normal bowel sounds. Absent: distended, tenderness, guarding, rebound, rigid Extremities exam: Present: normal inspection, full ROM, normal capillary refill. Absent: tenderness, pedal edema, joint swelling, calf tenderness Back exam: Present: normal inspection Neurological exam: Present: alert, oriented X3, CN II-XII intact Psychiatric exam: Present: normal affect, normal mood Skin exam: Present: warm, dry, intact, normal color. Absent: rash Course Vital Signs 07/10/23 20:18 Temperature 98.9 F Pulse Rate 81 Respiratory 20 Rate Blood Pressure 140/87 O2 Sat by Pulse 96 Oximetry - Reevaluation(s) Reevaluation #1: 07/10/23 22:29 Medical record is reviewed Reevaluation #2: 07/10/23 22:29 Patient symptoms are improving 07/10/23 22:29 Patient still feels significantly cyclic vomiting Reevaluation #3: 07/10/23 22:29 Patient informed results questions answered Reevaluation #4: 07/10/23 21:57 Was pt. sent in by a medical professional or institution (, PA, SCOW DERRICK OPERATOR, urgent care, hospital, or fci...) When possible be specific @ -no Did you speak to anyone other than the patient for history (EMS, parent, family, police, friend...)? What history was obtained from this source @ -no Did you review nursing and triage notes (agree or disagree)? Why? @ -agree Are old charts reviewed (outside hosp., previous admission, EMS record, old EKG, old radiological studies, urgent care reports/EKG's, fci records)? Report findings @ -yes Differential Diagnosis (chest pain, altered mental status, abdominal pain women, abdominal pain men, vaginal bleeding, weakness, fever, dyspnea, syncope, headache, dizziness, GI bleed, back pain, seizure, CVA, palpatations, mental health, musculoskeletal)? @ -prior EKG interpreted by me (3pts min.). @ -yes X-rays interpreted by me (1pt min.). @ -yes CT interpreted by me (1pt min.). @ -no U/S interpreted by me (1pt. min.). @ -no What testing was considered but not performed or refused? (CT, X-rays, U/S, labs)? Why? @ -none What meds were considered but not given or refused? Why? @ -none Did you discuss the management of the patient with other professionals (professionals i.e. , PA, SCOW DERRICK OPERATOR, lab, RT, psych nurse, social service agency director, director airport, teacher, community cultural development officer, family preservation caseworker)? Give summary @ -no Was smoking cessation discussed for >3mins.? @ -no Was critical care preformed (if so, how long)? @ -no Were there social determinants of health that impacted care today? How? (Homelessness, low income, unemployed, alcoholism, drug addiction, transportation, low edu. Level, literacy, decrease access to med. care, senior living, rehab)? @ -none Was there de-escalation of care discussed even if they declined (Discuss DNR or withdrawal of care, Hospice)? DNR status @ -no What co-morbidities impacted this encounter? (DM, HTN, Smoking, COPD, CAD, Cancer, CVA, ARF, Chemo, Hep., AIDS, mental health diagnosis, sleep apnea, morbid obesity)? @ -none Was patient admitted / discharged? Hospital course, mention meds given and route, prescriptions, significant lab abnormalities, going to OR and other pertinent info. @ - Undiagnosed new problem with uncertain prognosis? @ -no Drug Therapy requiring intensive monitoring for toxicity (Heparin, Nitro, Insulin, Cardizem)? @ -no Were any procedures done? @ -no Diagnosis/symptom? @ - Acute, or Chronic, or Acute on Chronic? @ -Acute Uncomplicated (without systemic symptoms) or Complicated (systemic symptoms)? @ -Complicated Side effects of treatment? @ -no Exacerbation, Progression, or Severe Exacerbation? @ -exacerbation Poses a threat to life or bodily function? How? (Chest pain, USA, RI, pneumonia, PE, COPD, DKA, ARF, appy, cholecystitis, CVA, Diverticulitis, Homicidal, Suicid al, threat to staff... and all critical care pts) @ -yes - Consultations Consultation #1: Spoke with PMH related admit this patient Medical Decision Making - Medical Decision Making 62 female will admit for alcohol intoxication pending alcohol withdrawal. Significant depression requiring psychiatric evaluation. - Lab Data Result diagrams: 07/10/23 22:13 Lab Results 07/10/23 Range/Units 22:13 WBC 4.2 (3.8-10.6) k/uL RBC 4.52 (3.80-5.40) m/uL Hgb 14.6 (11.4-16.0) gm/dL Hct 42.1 (34.0-46.0) % MCV 93.3 (80.0-100.0) fL MCH 32.3 (25.0-35.0) pg MCHC 34.6 (31.0-37.0) g/dL RDW 14.5 (11.5-15.5) % Plt Count 151 (150-450) k/uL MPV 8.3 Neutrophils % 67 % Lymphocytes % 21 % Monocytes % 8 % Eosinophils % 2 % Basophils % 0 % Neutrophils # 2.8 (1.3-7.7) k/uL Lymphocytes # 0.9 L (1.0-4.8) k/uL Monocytes # 0.3 (0-1.0) k/uL Eosinophils # 0.1 (0-0.7) k/uL Basophils # 0.0 (0-0.2) k/uL Disposition Clinical Impression: Alcoholism /alcohol abuse, Acute anxiety, Bipolar disorder, Alcohol poisoning, Severe alcohol use disorder Disposition: ADMITTED IP TO THIS [facility] Condition: Serious Is patient prescribed a controlled substance at d/c from ED?: No Referrals: None,Stated [Primary Care Provider] - 1-2 days Time of Disposition: 22:30
[2023-07-10 22:24] LABS: Basophils % (A) 0 %; Eosinophils # (A) 0.1 k/uL (0-0.7); Eosinophils % (A) 2 %; HCT 42.1 % (34.0-46.0); HGB 14.6 gm/dL (11.4-16.0); Lymphocytes # (A) 0.9 k/uL (1.0-4.8); Lymphocytes % (A) 21 %; MCH 32.3 pg (25.0-35.0); MCHC 34.6 g/dL (31.0-37.0); MCV 93.3 fL (80.0-100.0); Mean Platelet Volume 8.3; Monocytes # (A) 0.3 k/uL (0-1.0); Monocytes % (A) 8 %; Neutrophils # (A) 2.8 k/uL (1.3-7.7); Neutrophils % (A) 67 %; Platelet Count 151 k/uL (150-450); RBC 4.52 m/uL (3.80-5.40); RDW 14.5 % (11.5-15.5); WBC 4.2 k/uL (3.8-10.6)
[2023-07-10] MEDS ORDERED: MORPHINE SULFATE 4 MG/ML SYRINGE IV PRN (22:27)
[2023-07-10] MEDS ORDERED: NALOXONE 0.4 MG/ML 1 ML VIAL IV PRN (22:27)
[2023-07-10 22:33] LABS: Appearance,Urine Clear (Clear); Bilirubin,Urine Negative (Negative); Blood,Urine Negative (Negative); Color,Urine Colorless; Glucose,Urine (UA) Negative (Negative); Ketones,Urine Negative (Negative); Leukocyte Esterase,Urine Negative (Negative); Nitrite,Urine Negative (Negative); PH, Urine 6.5 (5.0-8.0); Protein,Urine Negative (Negative); Specific Gravity,Urine 1.003 (1.001-1.035); Urobilinogen,Urine <2.0 mg/dL (<2.0)
[2023-07-10 22:40] LABS: ALT 68 U/L (4-34); AST 63 U/L (14-36); African American GFR (CKD) >90 (>60 ml/min/1.73 sqM); Albumin 4.6 g/dL (3.5-5.0); Alkaline Phosphatase 58 U/L (38-126); Anion Gap 14 mmol/L; Blood Urea Nitrogen 3 mg/dL (7-17); Calcium 10.4 mg/dL (8.4-10.2); Carbon Dioxide 22 mmol/L (22-30); Chloride 104 mmol/L (98-107); Glucose 105 mg/dL (74-99); Lipase 81 U/L (23-300); Magnesium 1.7 mg/dL (1.6-2.3); Non-African American GFR(CKD) >90 (>60 ml/min/1.73 sqM); Phosphorus 3.5 mg/dL (2.5-4.5); Potassium 3.2 mmol/L (3.5-5.1); Sodium 140 mmol/L (137-145); Total Bilirubin 0.7 mg/dL (0.2-1.3)
[2023-07-10 22:59] LABS: Alcohol 215 mg/dL
[2023-07-10] MEDS: SODIUM CHLORIDE 0.9% 1,000 ML IV SCH (23:01)
[2023-07-10] MEDS: LORazepam 2 MG/ML INJ IV PRN (23:57)
[2023-07-11] MEDS: ONDANSETRON 4 MG/2 ML VIAL IVP PRN ×2 (00:31→13:12)
[2023-07-11 06:45] LABS: Basophils % (A) 1 %; Eosinophils # (A) 0.1 k/uL (0-0.7); Eosinophils % (A) 3 %; HCT 39.1 % (34.0-46.0); HGB 13.2 gm/dL (11.4-16.0); Lymphocytes % (A) 34 %; MCHC 33.7 g/dL (31.0-37.0); Monocytes # (A) 0.3 k/uL (0-1.0); Monocytes % (A) 9 %; Neutrophils # (A) 1.6 k/uL (1.3-7.7); Neutrophils % (A) 52 %; Platelet Count 154 k/uL (150-450); RBC 4.11 m/uL (3.80-5.40); RDW 14.4 % (11.5-15.5); WBC 3.1 k/uL (3.8-10.6)
[2023-07-11 06:55] LABS: ALT 61 U/L (4-34); AST 67 U/L (14-36); African American GFR (CKD) >90 (>60 ml/min/1.73 sqM); Albumin 3.8 g/dL (3.5-5.0); Alkaline Phosphatase 46 U/L (38-126); Anion Gap 9 mmol/L; Blood Urea Nitrogen 5 mg/dL (7-17); Calcium 9.6 mg/dL (8.4-10.2); Carbon Dioxide 24 mmol/L (22-30); Chloride 107 mmol/L (98-107); Glucose 83 mg/dL (74-99); Magnesium 1.5 mg/dL (1.6-2.3); Non-African American GFR(CKD) >90 (>60 ml/min/1.73 sqM); Phosphorus 3.8 mg/dL (2.5-4.5); Potassium 3.5 mmol/L (3.5-5.1); Sodium 140 mmol/L (137-145); Total Bilirubin 0.5 mg/dL (0.2-1.3); Total Protein 6.7 g/dL (6.3-8.2)
[2023-07-11] MEDS: PANTOPRAZOLE 40 MG/10 ML VIAL IV SCH (08:38)
[2023-07-11] MEDS: THIAMINE 100 MG TAB PO SCH (08:38)
[2023-07-11] MEDS: SODIUM CHLORIDE 0.9% 1,000 ML IV SCH ×3 (08:38→22:30)
[2023-07-11] MEDS ORDERED: ALBUTEROL NEBULIZED 2.5 MG/3 ML INHALATION PRN (11:07)
--- NOTE | 2023-07-11 12:52 | P.CN ---
Psychiatric Consult - . Consult date: 07/11/23 Consult:: 07/11/23 12:51 IDENTIFYING DATA: This patient is a 62-year-old female with significant history of alcohol use disorder presented to our hospital on 07/10/2023 for acute alcohol withdrawal HISTORY OF PRESENT ILLNESS: The patient presented to the hospital on 07/10/2023 for acute alcohol withdrawal. The patient was recently at the hospital however signed AMA believing that she could detox herself at home. She realized that she could not do this and decided to come back to the hospital. Reportedly, the patient was endorsing significant guilt and depression and psychiatry has been consulted for an evaluation. Upon evaluation by psychiatrist, the patient reports that she has been drinking heavily. She states that she was recently discharged from [facility] approximately a week ago after a two-week stay. She states that she has been drinking a half pint of vodka along with 6 tall cans of a canned cocktail. In regards to mood, the patient is not reporting any suicidal or homicidal ideation, intention, and/or plan. She is not reporting any auditory or visual hallucinations. She denies any paranoia or other delusions. She has been adherent with her psychiatric medications at home and is not reporting any sniffing side effects. She is not reporting any acute issues to this provider and reports no issues regarding her sleep, appetite, or hygiene and grooming. She reports that she has good support from family and friends. PAST PSYCHIATRIC HISTORY: Patient states that he has previously diagnosed bipolar 2 disorder and alcohol use disorder. The patient reports that she does well on her current regimen of Abilify, Lamictal, Lexapro, and trazodone. She is currently open with [facility]. She has had prior psychiatric admissions with the last one being in December 2022 on [address]. She does report one prior attempt at suicide by jumping in front of a train in the distant past. PAST MEDICAL HISTORY: Past Medical History: Asthma, Cancer, Hypertension, Thyroid Disorder Additional Past Medical History / Comment(s): History of goiter status post thyroidectomy, questionable history of thyroid cancer although this is not clear, bipolar disorder, depression, history of suicidal ideations, history of drug overdose, alcoholism, seasonal rhinitis, psoriasis, breast cysts, history of broken toes in the right foot, hypertension, History of Any Multi-Drug Resistant Organisms: None Reported Past Surgical History: No Surgical Hx Reported Additional Past Surgical History / Comment(s): Thyroidectomy 1999, SKIN NEVI REMOVED Past Anesthesia/Blood Transfusion Reactions: Previous Problems w/ Anesthesia, Postoperative Nausea & Vomiting (PONV) Additional Past Anesthesia/Blood Transfusion Reaction / Comment(s): patient states she is homeless. Pt is normally independent. Pt is an alcoholic. She is feeling more depressed lately and ashamed of her alcoholism. PT STATED SHE IS A BINGE DRINKER AND IS A BLACK OUT DRINKER,THINKS SHE STARTED DRINKING 4-5 DAYS AGO 3 PINTS A DAY AND WHEN COMING DOWN DRANK SUAVE HAIR SPRAY Pt no longer has a drivers license- she has had 2 DUI's. 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 She is seen at [facility]. Past Psychological History: Anxiety, Bipolar, Depression Smoking Status: Never smoker Past Alcohol Use History: Abuse, Daily, Heavy Past Drug Use History: None Reported ALLERGIES: Allergies Allergy/AdvReac Type Severity Reaction Status Date / Time clindamycin Allergy Unknown Rash/Hives Verified 07/10/23 20:51 acetylcysteine AdvReac Anaphylaxis Verified 07/10/23 20:51 [From Mucomyst] citalopram [From Celexa] AdvReac Hallucinati Verified 07/10/23 20:51 ons diphenhydramine HCl AdvReac Rapid Verified 07/10/23 20:51 [From Benadryl] Heart Rate CHEMICAL DEPENDENCY HISTORY: as per HPI. FAMILY PSYCHIATRIC/SUBSTANCE USE HISTORY: The patient's drug of choice is alcohol. She reports her last drink was approximately a week ago. She has been to inpatient substance abuse rehabilitation more than 10 times. She was most recently at [facility] and discharged week ago. She reports no illicit drug use or marijuana use. She denies any tobacco use. SOCIAL HISTORY: Patient was born and raised in [place], [place]. She is after her second 6 years ago. She has no children. She is currently unemployed. She is currently homeless. 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 MENTAL STATUS EXAM: General Appearance: Patient appears to be stated age is alert, pleasant, and cooperative. Patient appears to have fair hygiene and grooming wearing hospital gown with fair eye contact. Behavior: Patient is calmly lying in bed without any agitated behavior. Speech: Patient's speech is fluent and nonpressured. Mood/Affect: Patient reports their mood is "feeling better", affect is congruent and euthymic. Suicidality/Homicidality: Patient vehemently denies any suicidal or homicidal ideation Perceptions: Patient denies any visual hallucinations and denies any auditory hallucinations Though content/process: There is no evidence of any delusional thought content and thought process is linear and goal-directed. Memory and concentration: AOX3, grossly intact for the purposes of this session. Can spell "WORLD" backwards Judgment and insight: Fair Laboratory Results - Last 24 Hours 07/10/23 07/10/23 07/10/23 22:13 22:13 22:13 WBC 4.2 RBC 4.52 Hgb 14.6 Hct 42.1 MCV 93.3 MCH 32.3 MCHC 34.6 RDW 14.5 Plt Count 151 MPV 8.3 Neutrophils % 67 Lymphocytes % 21 Monocytes % 8 Eosinophils % 2 Basophils % 0 Neutrophils # 2.8 Lymphocytes # 0.9 L Monocytes # 0.3 Eosinophils # 0.1 Basophils # 0.0 Sodium 140 Potassium 3.2 L Chloride 104 Carbon Dioxide 22 Anion Gap 14 BUN 3 L Creatinine 0.64 Est GFR (CKD-EPI)AfAm >90 Est GFR (CKD-EPI)NonAf >90 Glucose 105 H Calcium 10.4 H Phosphorus 3.5 Magnesium 1.7 Total Bilirubin 0.7 AST 63 H ALT 68 H Alkaline Phosphatase 58 Total Protein 8.0 Albumin 4.6 Lipase 81 Urine Color Colorless Urine Appearance Clear Urine pH 6.5 Ur Specific [place] 1.003 Urine Protein Negative Urine Glucose (UA) Negative Urine Ketones Negative Urine Blood Negative Urine Nitrite Negative Urine Bilirubin Negative Urine Urobilinogen <2.0 Ur Leukocyte Esterase Negative Serum Alcohol 215 H* 07/11/23 07/11/23 05:59 05:59 WBC 3.1 L RBC 4.11 Hgb 13.2 Hct 39.1 MCV 95.0 MCH 32.0 MCHC 33.7 RDW 14.4 Plt Count 154 MPV 8.0 Neutrophils % 52 Lymphocytes % 34 Monocytes % 9 Eosinophils % 3 Basophils % 1 Neutrophils # 1.6 Lymphocytes # 1.0 Monocytes # 0.3 Eosinophils # 0.1 Basophils # 0.0 Sodium 140 Potassium 3.5 Chloride 107 Carbon Dioxide 24 Anion Gap 9 BUN 5 L Creatinine 0.63 Est GFR (CKD-EPI)AfAm >90 Est GFR (CKD-EPI)NonAf >90 Glucose 83 Calcium 9.6 Phosphorus 3.8 Magnesium 1.5 L Total Bilirubin 0.5 AST 67 H ALT 61 H Alkaline Phosphatase 46 Total Protein 6.7 Albumin 3.8 Lipase Urine Color Urine Appearance Urine pH Ur Specific [place] Urine Protein Urine Glucose (UA) Urine Ketones Urine Blood Urine Nitrite Urine Bilirubin Urine Urobilinogen Ur Leukocyte Esterase Serum Alcohol Vital Signs Temp 98.3 F 07/11/23 07:00 Pulse 72 07/11/23 07:00 Resp 16 07/11/23 07:00 BP 152/92 07/11/23 07:00 Pulse Ox 97 07/11/23 07:00 FiO2 Intake & Output 07/10/23 07/11/23 07/11/23 18:59 06:59 18:59 Output Total 30 Balance -30 Weight 72.575 kg Output: Emesis 30 Other: # Voids 2 IMPRESSIONS: Alcohol use disorder with alcohol withdrawal Bipolar 2 disorder PLAN: -Continue your medical management for alcohol withdrawal. Agree with [facility] protocol -At this time patient DOES NOT meet criteria for inpatient psychiatric admission. Patient is not presenting as overtly manic or psychotic. She does not present with imminent risk of harm to self or others. She does express future and goal orientation and significant support. -Would recommend the following medication changes/additions: No medication recommendations made at this time. Continue current psychiatric medication regimen. -Approximately 20 minutes are spent providing patient with motivational interviewing regarding her alcohol use disorder -Psychiatry will sign off at this point, please contact with any questions. 07/11/23 12:51
--- NOTE | 2023-07-11 13:20 | P.HPIM ---
History of Present Illness H&P Date: 07/11/23 History of present illness; patient is a 62-year-old female, history of hypertension and EtOH abuse who presented to the ER for alcohol detox. Patient left AMA earlier yesterday after being admitted for similar complaints. Patient denies any auditory or visual hallucinations. Patient does admit to being very depressed. Denies any suicidal thoughts. Denies any homicidal thoughts.She states that she has been drinking a half pint of vodka along with 6 tall cans of a canned cocktail. Patient was recently discharged from [facility]. Initial lab work done in the ER showed WBC 4.2, hemoglobin 14.6, platelet count 151, sodium 140, potassium 3.2, BUN 3, creatinine 0.64, calcium 10.4 Patient admitted to medicine service REVIEW OF SYSTEMS: CONSTITUTIONAL: No fever, no malaise, no fatigue. HEENT: No recent visual problems or hearing problems. Denied any sore throat. CARDIOVASCULAR: No chest pain, orthopnea, PND, no palpitations, no syncope. PULMONARY: No shortness of breath, no cough, no hemoptysis. GASTROINTESTINAL: No diarrhea, no nausea, no vomiting, no abdominal pain. NEUROLOGICAL: No headaches, no weakness, no numbness. HEMATOLOGICAL: Denies any bleeding or petechiae. GENITOURINARY: Denies any burning micturition, frequency, or urgency. MUSCULOSKELETAL/RHEUMATOLOGICAL: Denies any joint pain, swelling, or any muscle pain. ENDOCRINE: Denies any polyuria or polydipsia. The rest of the 14-point review of systems is negative. PHYSICAL EXAMINATION: GENERAL: The patient is alert and oriented x3, not in any acute distress. Well developed, well nourished. HEENT: Pupils are round and equally reacting to light. EOMI. No scleral icterus. No conjunctival pallor. Normocephalic, atraumatic. No pharyngeal erythema. No thyromegaly. CARDIOVASCULAR: S1 and S2 present. No murmurs, rubs, or gallops. PULMONARY: Chest is clear to auscultation, no wheezing or crackles. ABDOMEN: Soft, nontender, nondistended, normoactive bowel sounds. No palpable organomegaly. MUSCULOSKELETAL: No joint swelling or deformity. EXTREMITIES: No cyanosis, clubbing, or pedal edema. NEUROLOGICAL: Gross neurological examination did not reveal any focal deficits. SKIN: No rashes. Assessment and plan Alcohol abuse Alcohol intoxication Hypokalemia Hypercalcemia Elevated LFTs Major depression Hypertension Hypothyroidism Monitor vital signs Monitor CBC Monitor CMP Potassium replacement Continue IV fluids Continue antiemetics Continue CIWA protocol Continue thiamine and folic acid Psychiatry consulted Labs and medication were reviewed.. Continue same treatment. Continue with symptomatic treatment. Resume home medication. Monitor labs and vitals. DVT and GI prophylaxis. Further recommendations as per clinical course of the patient Dictation was produced using [employer] dictation software. please excuse any grammatical, word or spelling errors. Past Medical History Past Medical History: Asthma, Cancer, Hypertension, Thyroid Disorder Additional Past Medical History / Comment(s): History of goiter status post thyroidectomy, questionable history of thyroid cancer although this is not clear, bipolar disorder, depression, history of suicidal ideations, history of drug overdose, alcoholism, seasonal rhinitis, psoriasis, breast cysts, history of broken toes in the right foot, hypertension, History of Any Multi-Drug Resistant Organisms: None Reported Past Surgical History: No Surgical Hx Reported Additional Past Surgical History / Comment(s): Thyroidectomy 1999, SKIN NEVI REMOVED Past Anesthesia/Blood Transfusion Reactions: Previous Problems w/ Anesthesia, Postoperative Nausea & Vomiting (PONV) Additional Past Anesthesia/Blood Transfusion Reaction / Comment(s): patient states she is homeless. Pt is normally independent. Pt is an alcoholic. She is feeling more depressed lately and ashamed of her alcoholism. PT STATED SHE IS A BINGE DRINKER AND IS A BLACK OUT DRINKER,THINKS SHE STARTED DRINKING 4-5 DAYS AGO 3 PINTS A DAY AND WHEN COMING DOWN DRANK SUAVE HAIR SPRAY Pt no longer has a drivers license- she has had 2 DUI's. 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 She is seen at [facility]. Past Psychological History: Anxiety, Bipolar, Depression Additional Psychological History / Comment(s): Pt is normally independent. Pt i s an alcoholic. She is feeling more depressed lately and ashamed of her alcoholism. Pt states she drinks a pint a day and today drank half a bottle of hairspray. Pt no longer has a drivers license- she has had 2 DUI's. 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 She is seen at [facility]. Smoking Status: Never smoker Past Alcohol Use History: Abuse, Daily, Heavy Additional Past Alcohol Use History / Comment(s): Pt agrees she is an alcoholic for greater than 20 years and comes from a family hx of abuse. Past Drug Use History: None Reported - Past Family History Father Family Medical History: Cancer Additional Family Medical History / Comment(s): Father at age 64 of esophageal cancer. Father was an alcoholic and had cirrhosis of the liver. Mother Family Medical History: Cancer Additional Family Medical History / Comment(s): Mother of breast cancer at age 42yrs. Medications and Allergies Home Medications Medication Instructions Recorded Confirmed Type Albuterol Inhaler [Ventolin Hfa 2 puff INHALATION RT-Q6H PRN #1 01/20/23 07/10/23 Rx Inhaler] each Escitalopram [Lexapro] 20 mg PO DAILY 05/18/23 07/10/23 History Nitroglycerin Sl Tabs [Nitrostat] 0.4 mg SL Q5M PRN 05/18/23 07/10/23 History ARIPiprazole [Abilify] 7.5 mg PO DAILY 07/09/23 07/10/23 History Levothyroxine Sodium [Synthroid] 150 mcg PO DAILY 07/09/23 07/10/23 History lamoTRIgine [LaMICtal] 200 mg PO DAILY 07/09/23 07/10/23 History traZODone HCL [Desyrel] 100 mg PO HS 07/09/23 07/10/23 History Allergies Allergy/AdvReac Type Severity Reaction Status Date / Time clindamycin Allergy Unknown Rash/Hives Verified 07/10/23 20:51 acetylcysteine AdvReac Anaphylaxis Verified 07/10/23 20:51 [From Mucomyst] citalopram [From Celexa] AdvReac Hallucinati Verified 07/10/23 20:51 ons diphenhydramine HCl AdvReac Rapid Verified 07/10/23 20:51 [From Benadryl] Heart Rate Physical Exam Vitals: Vital Signs Temp Pulse Pulse Resp BP BP Pulse Ox 07/11/23 07:00 98.3 F 72 16 152/92 97 07/11/23 02:00 98.1 F 89 16 156/95 98 07/10/23 23:27 98.1 F 74 16 150/87 94 L 07/10/23 23:20 98 F 88 20 151/93 97 07/10/23 20:18 98.9 F 81 20 140/87 96 Intake and Output 07/10/23 07/11/23 07/11/23 22:59 06:59 14:59 Output Total 30 Balance -30 Output: Emesis 30 Other: # Voids 2 Weight 72.575 kg 72.575 kg Results CBC & Chem 7: 07/11/23 05:59 07/11/23 05:59 Labs: Abnormal Lab Results - Last 24 Hours (Table) 07/10/23 07/10/23 07/11/23 Range/Units 22:13 22:13 05:59 WBC 3.1 L (3.8-10.6) k/uL Lymphocytes # 0.9 L (1.0-4.8) k/uL Potassium 3.2 L (3.5-5.1) mmol/L BUN 3 L (7-17) mg/dL Glucose 105 H (74-99) mg/dL Calcium 10.4 H (8.4-10.2) mg/dL Magnesium (1.6-2.3) mg/dL AST 63 H (14-36) U/L ALT 68 H (4-34) U/L Serum Alcohol 215 H* mg/dL 07/11/23 Range/Units 05:59 WBC (3.8-10.6) k/uL Lymphocytes # (1.0-4.8) k/uL Potassium (3.5-5.1) mmol/L BUN 5 L (7-17) mg/dL Glucose (74-99) mg/dL Calcium (8.4-10.2) mg/dL Magnesium 1.5 L (1.6-2.3) mg/dL AST 67 H (14-36) U/L ALT 61 H (4-34) U/L Serum Alcohol mg/dL Thrombosis Risk Factor Assmnt - Choose All That Apply Any of the Below Risk Factors Present?: Yes Each Factor Represents 1 point: Obesity (BMI >25) Other Risk Factors: Yes Each Risk Factor Represents 2 Points: Age 61-74 years Other congenital or acquired thrombophilia - If yes, enter type in comment: No Thrombosis Risk Factor Assessment Total Risk Factor Score: 3 Thrombosis Risk Factor Assessment Level: Moderate Risk
[2023-07-11] MEDS: LORazepam 2 MG/ML INJ IV PRN (18:29)
[2023-07-11] MEDS ORDERED: traZODone HCL 100 MG TAB PO SCH (21:00)
[2023-07-11] MEDS ORDERED: ACETAMINOPHEN TAB 325 MG TAB PO PRN (22:29)
[2023-07-12 00:30] VITALS: TEMP 98.2
[2023-07-12] MEDS ORDERED: LEVOTHYROXINE 75 MCG TAB PO SCH (06:30)
[2023-07-12 08:21] VITALS: BP 163/100; PULSE 66; RESP 16
[2023-07-12] MEDS: PANTOPRAZOLE 40 MG/10 ML VIAL IV SCH (08:36)
[2023-07-12] MEDS: SODIUM CHLORIDE 0.9% 1,000 ML IV SCH (08:36)
[2023-07-12] MEDS: THIAMINE 100 MG TAB PO SCH (08:36)
[2023-07-12] MEDS ORDERED: lamoTRIgine 100 MG TAB PO SCH (09:00)
[2023-07-12] MEDS ORDERED: ARIPiprazole 5 MG TAB PO SCH (09:00)
[2023-07-12] MEDS ORDERED: ESCITALOPRAM 20 MG TAB PO SCH (09:00)
--- NOTE | 2023-07-12 14:32 | P.DS ---
Providers Date of admission: 07/10/23 22:27 Expected date of discharge: 07/12/23 Attending physician: Chris Tiwari Consults: 07/10/23 22:27 Consult Physician Routine Consulting Provider: Edwin Batista Reason/Comments: depressoin Do you want consulting provider notified?: Already Contacted Primary care physician: Stated None Hospital Course: Discharge diagnoses; Alcohol abuse Alcohol intoxication Hypokalemia Hypercalcemia Elevated LFTs Major depression Hypertension Hypothyroidism Hospital course; patient is a 62-year-old female, history of hypertension and EtOH abuse who presented to the ER for alcohol detox. Patient left AMA earlier yesterday after being admitted for similar complaints. Patient denies any auditory or visual hallucinations. Patient does admit to being very depressed. Denies any suicidal thoughts. Denies any homicidal thoughts.She states that she has been drinking a half pint of vodka along with 6 tall cans of a canned cocktail. Patient was recently discharged from [facility]. Initial lab work done in the ER showed WBC 4.2, hemoglobin 14.6, platelet count 151, sodium 140, potassium 3.2, BUN 3, creatinine 0.64, calcium 10.4 Patient admitted to medicine service 07/12. Patient seen and examined. Patient CIWA scores have been low. Patient will follow-up outpatient for alcohol rehab. Being discharged in stable condition PHYSICAL EXAMINATION: GENERAL: The patient is alert and oriented x3, not in any acute distress. Well developed, well nourished. HEENT: Pupils are round and equally reacting to light. EOMI. No scleral icterus. No conjunctival pallor. Normocephalic, atraumatic. No pharyngeal erythema. No thyromegaly. CARDIOVASCULAR: S1 and S2 present. No murmurs, rubs, or gallops. PULMONARY: Chest is clear to auscultation, no wheezing or crackles. ABDOMEN: Soft, nontender, nondistended, normoactive bowel sounds. No palpable organomegaly. MUSCULOSKELETAL: No joint swelling or deformity. EXTREMITIES: No cyanosis, clubbing, or pedal edema. NEUROLOGICAL: Gross neurological examination did not reveal any focal deficits. SKIN: No rashes. Dictation was produced using [employer] dictation software. please excuse any grammatical, word or spelling errors. Patient Condition at Discharge: Good Plan - Discharge Summary New Discharge Prescriptions: New Thiamine [Vitamin B-1] 100 mg PO DAILY #30 tab Continue Escitalopram [Lexapro] 20 mg PO DAILY Albuterol Inhaler [Ventolin Hfa Inhaler] 2 puff INHALATION RT-Q6H PRN #1 each PRN Reason: Shortness Of Breath Nitroglycerin Sl Tabs [Nitrostat] 0.4 mg SL Q5M PRN PRN Reason: Chest Pain traZODone HCL [Desyrel] 100 mg PO HS lamoTRIgine [LaMICtal] 200 mg PO DAILY ARIPiprazole [Abilify] 7.5 mg PO DAILY Levothyroxine Sodium [Synthroid] 150 mcg PO DAILY Discharge Medication List Albuterol Inhaler [Ventolin Hfa Inhaler] 2 puff INHALATION RT-Q6H PRN #1 each 01/20/23 [Rx] Escitalopram [Lexapro] 20 mg PO DAILY 05/18/23 [History] Nitroglycerin Sl Tabs [Nitrostat] 0.4 mg SL Q5M PRN 05/18/23 [History] ARIPiprazole [Abilify] 7.5 mg PO DAILY 07/09/23 [History] Levothyroxine Sodium [Synthroid] 150 mcg PO DAILY 07/09/23 [History] lamoTRIgine [LaMICtal] 200 mg PO DAILY 07/09/23 [History] traZODone HCL [Desyrel] 100 mg PO HS 07/09/23 [History] Thiamine [Vitamin B-1] 100 mg PO DAILY #30 tab 07/12/23 [Rx] Follow up Appointment(s)/Referral(s): None,Stated [Primary Care Provider] - 1-2 days Discharge/Stand Alone Forms: AA Meetings [facility], Outpatient Counseling, Inp Substance Abuse Facilities Discharge Disposition: HOME SELF-CARE
== END 2023-07-12 14:53 | disposition home or self-care (01) ==
LOC: EC 20:16 → 6NMEDSUR 22:27
PROVIDERS: ADMIT Hospitalist; ATTEND Hospitalist
DX: F10.130 Alcohol abuse with withdrawal, uncomplicated (principal); F10.120 Alcohol abuse with intoxication, uncomplicated; Y90.7 Blood alcohol level of 200-239 mg/100 ml; F31.81 Bipolar II disorder; J45.909 Unspecified asthma, uncomplicated; I10 Essential (primary) hypertension; E89.0 Postprocedural hypothyroidism; F41.9 Anxiety disorder, unspecified; E87.6 Hypokalemia; E83.52 Hypercalcemia; R79.89 Other specified abnormal findings of blood chemistry; Z56.0 Unemployment, unspecified; Z59.00 Homelessness unspecified; Z88.1 Allergy status to other antibiotic agents; Z79.899 Other long term (current) drug therapy; Z79.890 Hormone replacement therapy
CPT/HCPCS: 96376 ×3; 96361 ×3; 96375; 96372; 96374; 99285; 36415; 80053 ×2; 83690; 83735 ×2; 84100 ×2; 85025 ×2; 81003; G0378 ×3; G0480; J2060 ×2; J3411; J2405; C9113 ×2; 80320

== ENCOUNTER 2023-07-17 04:32 | Observation (INO) | payer OTHER ==
[2023-07-17] MEDS ORDERED: SODIUM CHLORIDE 0.9% 1,000 ML IV STA (05:12)
[2023-07-17] MEDS ORDERED: LORazepam 2 MG/ML INJ IV PRN (05:23)
[2023-07-17] MEDS ORDERED: THIAMINE 100 MG/ML 2 ML VIAL IM STA (05:23)
[2023-07-17 05:36] LABS: Basophils % (A) 0 %; Eosinophils # (A) 0.1 k/uL (0-0.7); Eosinophils % (A) 3 %; HCT 38.3 % (34.0-46.0); HGB 13.1 gm/dL (11.4-16.0); Lymphocytes % (A) 22 %; MCH 32.7 pg (25.0-35.0); MCHC 34.3 g/dL (31.0-37.0); MCV 95.3 fL (80.0-100.0); Mean Platelet Volume 8.5; Monocytes # (A) 0.4 k/uL (0-1.0); Monocytes % (A) 9 %; Neutrophils # (A) 2.7 k/uL (1.3-7.7); Neutrophils % (A) 62 %; Platelet Count 223 k/uL (150-450); RBC 4.02 m/uL (3.80-5.40); RDW 15.5 % (11.5-15.5); WBC 4.3 k/uL (3.8-10.6)
[2023-07-17 05:45] LABS: ALT 52 U/L (4-34); AST 63 U/L (14-36); African American GFR (CKD) >90 (>60 ml/min/1.73 sqM); Albumin 4.2 g/dL (3.5-5.0); Alkaline Phosphatase 50 U/L (38-126); Anion Gap 11 mmol/L; Blood Urea Nitrogen 15 mg/dL (7-17); Calcium 9.3 mg/dL (8.4-10.2); Carbon Dioxide 25 mmol/L (22-30); Chloride 107 mmol/L (98-107); Glucose 87 mg/dL (74-99); Magnesium 1.8 mg/dL (1.6-2.3); Non-African American GFR(CKD) >90 (>60 ml/min/1.73 sqM); Potassium 4.4 mmol/L (3.5-5.1); Sodium 143 mmol/L (137-145); Total Bilirubin 0.4 mg/dL (0.2-1.3)
[2023-07-17 05:52] LABS: Alcohol 285 mg/dL
--- NOTE | 2023-07-17 06:11 | ED ---
Alcohol HPI - General Chief Complaint: Alcohol Stated Complaint: ETOH Time Seen by Provider: 07/17/23 04:40 Source: patient, EMS Mode of arrival: EMS Limitations: no limitations - History of Present Illness Initial Comments: 62-year-old female with history of alcohol abuse who presents to the emergency department reporting withdrawal symptoms. States that yesterday she attempted to stop drinking and became very tremulous with nausea and vomiting. Her symptoms became so bad that she states she drank a pint of alcohol around 2 AM to help control her symptoms. At that time she continued to have significant shaking and therefore called EMS. Patient has been hospitalized several times for alcohol intoxication and withdrawal. Last hospitalization was 5 days ago. States that she wants to quit drinking. Denies any injuries while being intoxicated. She denies any drug use. No reported seizures. No other alleviating, precipitating or modifying factors - Related Data Home Medications Medication Instructions Recorded Confirmed Escitalopram [Lexapro] 20 mg PO DAILY 05/18/23 07/10/23 Nitroglycerin Sl Tabs [Nitrostat] 0.4 mg SL Q5M PRN 05/18/23 07/10/23 ARIPiprazole [Abilify] 7.5 mg PO DAILY 07/09/23 07/10/23 Levothyroxine Sodium [Synthroid] 150 mcg PO DAILY 07/09/23 07/10/23 lamoTRIgine [LaMICtal] 200 mg PO DAILY 07/09/23 07/10/23 traZODone HCL [Desyrel] 100 mg PO HS 07/09/23 07/10/23 Previous Rx's Medication Instructions Recorded Albuterol Inhaler [Ventolin Hfa 2 puff INHALATION RT-Q6H PRN #1 01/20/23 Inhaler] each Thiamine [Vitamin B-1] 100 mg PO DAILY #30 tab 07/12/23 Allergies Allergy/AdvReac Type Severity Reaction Status Date / Time clindamycin Allergy Unknown Rash/Hives Verified 07/10/23 20:51 acetylcysteine AdvReac Anaphylaxis Verified 07/10/23 20:51 [From Mucomyst] citalopram [From Celexa] AdvReac Hallucinati Verified 07/10/23 20:51 ons diphenhydramine HCl AdvReac Rapid Verified 07/10/23 20:51 [From Benadryl] Heart Rate Review of Systems ROS Statement: Those systems with pertinent positive or pertinent negative responses have been documented in the HPI. ROS Other: All systems not noted in ROS Statement are negative. Past Medical History Past Medical History: Asthma, Cancer, Hypertension, Thyroid Disorder Additional Past Medical History / Comment(s): History of goiter status post thyroidectomy, questionable history of thyroid cancer although this is not clear, bipolar disorder, depression, history of suicidal ideations, history of drug overdose, alcoholism, seasonal rhinitis, psoriasis, breast cysts, history of broken toes in the right foot, hypertension, History of Any Multi-Drug Resistant Organisms: None Reported Past Surgical History: No Surgical Hx Reported Additional Past Surgical History / Comment(s): Thyroidectomy 1999, SKIN NEVI REMOVED Past Anesthesia/Blood Transfusion Reactions: Previous Problems w/ Anesthesia, Postoperative Nausea & Vomiting (PONV) Additional Past Anesthesia/Blood Transfusion Reaction / Comment(s): patient states she is homeless. Pt is normally independent. Pt is an alcoholic. She is feeling more depressed lately and ashamed of her alcoholism. PT STATED SHE IS A BINGE DRINKER AND IS A BLACK OUT DRINKER,THINKS SHE STARTED DRINKING 4-5 DAYS AGO 3 PINTS A DAY AND WHEN COMING DOWN DRANK SUAVE HAIR SPRAY Pt no longer has a drivers license- she has had 2 DUI's. 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 She is seen at [facility]. Past Psychological History: Anxiety, Bipolar, Depression Smoking Status: Never smoker Past Alcohol Use History: Abuse, Daily, Heavy Past Drug Use History: None Reported - Past Family History Father Family Medical History: Cancer Additional Family Medical History / Comment(s): Father at age 64 of esophageal cancer. Father was an alcoholic and had cirrhosis of the liver. Mother Family Medical History: Cancer Additional Family Medical History / Comment(s): Mother of breast cancer at age 42yrs. General Exam Limitations: altered mental status General appearance: appears intoxicated, anxious Head exam: Present: atraumatic, normocephalic, normal inspection ENT exam: Present: normal exam, mucous membranes moist Respiratory exam: Present: normal lung sounds bilaterally. Absent: respiratory distress, wheezes, rales, rhonchi, stridor Cardiovascular Exam: Present: regular rate, normal rhythm, normal heart sounds. Absent: systolic murmur, diastolic murmur, rubs, gallop, clicks GI/Abdominal exam: Present: soft, normal bowel sounds. Absent: distended, tenderness, guarding, rebound, rigid Extremities exam: Present: other (Shaky tremor) Neurological exam: Present: alert, oriented X3 Psychiatric exam: Present: flat affect Course Vital Signs 07/17/23 07/17/23 04:36 06:11 Temperature 98.4 F Pulse Rate 68 60 Respiratory 18 18 Rate Blood Pressure 140/90 114/59 O2 Sat by Pulse 98 94 L Oximetry Medical Decision Making - Medical Decision Making Was pt. sent in by a medical professional or institution (, PA, HAMMER SETTER, urgent care, hospital, or care home...) When possible be specific @ -No Did you speak to anyone other than the patient for history (EMS, parent, family, police, friend...)? What history was obtained from this source @ -I spoke with EMS in regards to the patient's symptoms Did you review nursing and triage notes (agree or disagree)? Why? @ -I reviewed and agree with nursing and triage notes Were old charts reviewed (outside hosp., previous admission, EMS record, old EKG, old radiological studies, urgent care reports/EKG's, care home records)? Report findings @ -I reviewed the patient's discharge summary from July 12 Differential Diagnosis (chest pain, altered mental status, abdominal pain women, abdominal pain men, vaginal bleeding, weakness, fever, dyspnea, syncope, headache, dizziness, GI bleed, back pain, seizure, CVA, palpatations, mental health, musculoskeletal)? @ -Alcohol intoxication, alcohol withdrawal, delirium tremens EKG interpreted by me (3pts min.). @ -Yes and demonstrates sinus rhythm with rate of 63. VA interval 162. QRS 82. QTC of 428. No acute ST segment elevations or depressions X-rays interpreted by me (1pt min.). @ -None done CT interpreted by me (1pt min.). @ -None done U/S interpreted by me (1pt. min.). @ -None done What testing was considered but not performed or refused? (CT, X-rays, U/S, labs)? Why? @ -None What meds were considered but not given or refused? Why? @ -None Did you discuss the management of the patient with other professionals (shekhar wyatt i.eNicolasa Riley, PA, HAMMER SETTER, lab, RT, psych nurse, social media strategist, curtain inspector, teacher, court collections officer, special education case manager)? Give summary @ -I spoke with Jael from [facility] who agreed to admit the patient Was smoking cessation discussed for >3mins.? @ -No Was critical care preformed (if so, how long)? @ -No Were there social determinants of health that impacted care today? How? (Homelessness, low income, unemployed, alcoholism, drug addiction, transportation, low edu. Level, literacy, decrease access to med. care, senior living, rehab)? @ -Alcoholism Was there de-escalation of care discussed even if they declined (Discuss DNR or withdrawal of care, Hospice)? DNR status @ -No What co-morbidities impacted this encounter? (DM, HTN, Smoking, COPD, CAD, Cancer, CVA, ARF, Chemo, Hep., AIDS, mental health diagnosis, sleep apnea, morb id obesity)? @ -Alcohol abuse Was patient admitted / discharged? Hospital course, mention meds given and route, prescriptions, significant lab abnormalities, going to OR and other pertinent info. @ -Upon arrival patient was placed into room 4. A thorough history and physical exam was performed. IV access is established and laboratory studies are conducted. Patient was placed on CIWA protocol. She does have a score of 9.. Alcohol is 285. Due to significant a call intoxication she will be admitted. Spoke with Jael who agreed to admit the patient. Patient was agreeable to the plan and she was admitted to the floor in stable condition Undiagnosed new problem with uncertain prognosis? @ -No Drug Therapy requiring intensive monitoring for toxicity (Heparin, Nitro, Insulin, Cardizem)? @ -No Were any procedures done? @ -No Diagnosis/symptom? @ -Acute alcohol intoxication Acute, or Chronic, or Acute on Chronic? @ -Acute Uncomplicated (without systemic symptoms) or Complicated (systemic symptoms)? @ -Complicated Side effects of treatment? @ -No Exacerbation, Progression, or Severe Exacerbation? @ -No Poses a threat to life or bodily function? How? (Chest pain, USA, CT, pneumonia, PE, COPD, DKA, ARF, appy, cholecystitis, CVA, Diverticulitis, Homicidal, Suicidal, threat to staff... and all critical care pts) @ -No - Lab Data Result diagrams: 07/17/23 04:40 07/17/23 04:40 Lab Results 07/17/23 07/17/23 Range/Units 04:40 04:40 WBC 4.3 (3.8-10.6) k/uL RBC 4.02 (3.80-5.40) m/uL Hgb 13.1 (11.4-16.0) gm/dL Hct 38.3 (34.0-46.0) % MCV 95.3 (80.0-100.0) fL MCH 32.7 (25.0-35.0) pg MCHC 34.3 (31.0-37.0) g/dL RDW 15.5 (11.5-15.5) % Plt Count 223 (150-450) k/uL MPV 8.5 Neutrophils % 62 % Lymphocytes % 22 % Monocytes % 9 % Eosinophils % 3 % Basophils % 0 % Neutrophils # 2.7 (1.3-7.7) k/uL Lymphocytes # 1.0 (1.0-4.8) k/uL Monocytes # 0.4 (0-1.0) k/uL Eosinophils # 0.1 (0-0.7) k/uL Basophils # 0.0 (0-0.2) k/uL Sodium 143 (137-145) mmol/L Potassium 4.4 (3.5-5.1) mmol/L Chloride 107 (98-107) mmol/L Carbon Dioxide 25 (22-30) mmol/L Anion Gap 11 mmol/L BUN 15 (7-17) mg/dL Creatinine 0.67 (0.52-1.04) mg/dL Est GFR (CKD-EPI)AfAm >90 (>60 ml/min/1.73 sqM) Est GFR (CKD-EPI)NonAf >90 (>60 ml/min/1.73 sqM) Glucose 87 (74-99) mg/dL Calcium 9.3 (8.4-10.2) mg/dL Magnesium 1.8 (1.6-2.3) mg/dL Total Bilirubin 0.4 (0.2-1.3) mg/dL AST 63 H (14-36) U/L ALT 52 H (4-34) U/L Alkaline Phosphatase 50 (38-126) U/L Total Protein 7.0 (6.3-8.2) g/dL Albumin 4.2 (3.5-5.0) g/dL Serum Alcohol 285 H* mg/dL Disposition Clinical Impression: Alcoholism /alcohol abuse, Alcohol intoxication Disposition: ADMITTED IP TO THIS HOSP Condition: Stable Is patient prescribed a controlled substance at d/c from ED?: No Time of Disposition: 06:12 Decision to Admit Reason: Admit from EC Decision Date: 07/17/23 Decision Time: 06:12
[2023-07-17] MEDS ORDERED: NALOXONE 0.4 MG/ML 1 ML VIAL IV PRN (06:13)
[2023-07-17] MEDS: SODIUM CHLORIDE 0.9% 1,000 ML IV SCH ×3 (06:25→23:48)
[2023-07-17] MEDS: LORazepam 2 MG/ML INJ IV PRN ×4 (14:26→21:45)
[2023-07-17] MEDS ORDERED: ALBUTEROL NEBULIZED 2.5 MG/3 ML INHALATION PRN (14:34)
[2023-07-17] MEDS ORDERED: ONDANSETRON 4 MG/2 ML VIAL IVP PRN ×2 (14:35→14:47)
[2023-07-17] MEDS: PANTOPRAZOLE 40 MG/10 ML VIAL IVP SCH ×2 (14:45→21:27)
[2023-07-17] MEDS: ARIPiprazole 5 MG TAB PO SCH (17:30)
[2023-07-17] MEDS: traZODone HCL 100 MG TAB PO SCH (21:30)
--- NOTE | 2023-07-17 21:43 | HP ---
HISTORY AND PHYSICAL CHIEF COMPLAINT: Alcohol withdrawal. HISTORY OF PRESENT ILLNESS: This is a 62-year-old woman with a past medical history of multiple problems of drinking heavily up to a pint per day. The patient came in with complaints of nausea, vomiting, shaking tremors, history of alcohol withdrawal symptoms. There is no history of any fever, rigors, or chills at this time. PAST MEDICAL HISTORY: Reviewed include asthma, hypertension. Rest of the history and rest of the chart is also reviewed. HOME MEDICATIONS: Reviewed include Desyrel. Dose and rest of medications reviewed. ALLERGIES: Reviewed include clindamycin. Rest of the allergies are reviewed. FAMILY HISTORY: History of cancer in the family. SOCIAL HISTORY: Heavy alcohol intake. No history of smoking. REVIEW OF SYSTEMS: Fourteen-point review is negative except as mentioned earlier. PHYSICAL EXAMINATION: VITAL SIGNS: Pulse is 60, blood pressure 114/59, respirations 18. HEENT: Conjunctivae normal. NECK: No JVD. CARDIOVASCULAR: S1, S2. RESPIRATIONS: Breath sounds diminished at the bases. ABDOMEN: Soft. LEGS: No edema. NERVOUS SYSTEM: Diffuse tremors present and weakness. No focal deficit. SKIN: No ulcer, rash, or bleeding. JOINTS: No active deforming arthropathy. LABORATORY DATA: Reviewed. ASSESSMENT: 1. Acute alcoholism and acute alcohol withdrawal. 2. Acute alcoholic hepatitis. 3. Early delirium tremens. 4. Asthma. 5. Hypertension. 6. Multiple medical issues. RECOMMENDATIONS AND DISCUSSION: This is a 62-year-old woman, who presented with multiple complex medical issues, we will monitor the patient closely. Recommend CIWA protocol. Resume the home medications once they are confirmed and DT precautions. Repeat labs in the morning. Overall prognosis guarded. Recommend alcohol rehab as an outpatient. Further recommendations to follow. MMODL / IJN: [id number] /
[2023-07-18] MEDS: LEVOTHYROXINE 75 MCG TAB PO SCH (06:34)
[2023-07-18] MEDS: SODIUM CHLORIDE 0.9% 1,000 ML IV SCH ×4 (06:35→22:38)
[2023-07-18] MEDS: PANTOPRAZOLE 40 MG/10 ML VIAL IVP SCH (08:30)
[2023-07-18] MEDS: ESCITALOPRAM 20 MG TAB PO SCH (08:53)
[2023-07-18] MEDS: THIAMINE 100 MG TAB PO SCH (08:53)
[2023-07-18] MEDS: lamoTRIgine 100 MG TAB PO SCH (08:53)
[2023-07-18] MEDS: ARIPiprazole 5 MG TAB PO SCH (08:53)
[2023-07-18 09:11] LABS: Basophils # (A) 0.02 X 10*3/uL (0.00-0.10); Basophils % (A) 0.6 %; Eosinophils # (A) 0.13 X 10*3/uL (0.04-0.35); HCT 37.4 % (37.2-46.3); HGB 12.4 d/dL (12.0-15.0); Lymphocytes # (A) 0.73 X 10*3/uL (0.90-5.00); Lymphocytes % (A) 22.6 %; MCHC 33.2 d/dL (32.0-37.0); MCV 96.4 FL (80.0-97.0); Mean Platelet Volume 10.7 FL (9.5-12.2); Monocytes # (A) 0.33 X 10*3/uL (0.20-1.00); Monocytes % (A) 10.2 %; NRBC Per 100 WBC 0 X 10*3/uL (0.00-0.01); Platelet Count 208 X 10*3/uL (140-440); RBC 3.88 X 10*6/uL (4.10-5.20); RDW 15.6 % (11.5-14.5); WBC 3.23 X 10*3/uL (4.50-10.00)
[2023-07-18] MEDS: LORazepam 2 MG/ML INJ IV PRN ×2 (10:26→20:38)
[2023-07-18 11:14] LABS: ALT 50 U/L (8-44); AST 52 U/L (13-35); Alkaline Phosphatase 39 U/L (41-126); BUN/Creat Ratio 18.29 Ratio (12.00-20.00); Blood Urea Nitrogen 12.8 mg/dL (9.0-27.0); Calcium 8.9 mg/dL (8.7-10.3); Carbon Dioxide 27.7 mmol/L (21.6-31.8); Chloride 103 mmol/L (96-109); Glucose 77 mg/dL (70-110); Potassium 4.1 mmol/L (3.5-5.5); Sodium 141 mmol/L (135-145)
[2023-07-18] MEDS: ACETAMINOPHEN TAB 325 MG TAB PO PRN ×2 (12:26→20:39)
[2023-07-18] MEDS: chlordiazePOXIDE 25 MG CAP PO SCH ×2 (14:20→21:07)
--- NOTE | 2023-07-18 15:38 | P.PN ---
Subjective Progress Note Date: 07/18/23 This is a pleasant 62-year-old female who was recently admitted with acute alcohol intoxication with concerns of acute alcohol withdrawals and early delirium tremens. Patient reports her last drink was 2 days ago and drinks about a pint a day. Patient is having some continued shakiness and unsteady ga it with decreased appetite. Patient is requiring CIWA protocol and maintained on as needed. Will add oral Ativan along with Librium taper and continue with antinausea medications and gentle IV hydration. Patient is afebrile with no reports of chest pain or shortness of breath. Patient tolerating some diet needs encouragement with meals. Will have physical therapy evaluate the patient in the a.m. Review of systems: Constitutional: No reports of fatigue, fever, or chills Cardiovascular: No reports of chest pain or palpitations Respiratory: No reports of shortness of breath or cough GI: reports of nausea, no reports of vomiting, not much of an appetite : No reports of dysuria or retention Neurovascular: reports of generalized weakness, shakiness while on feet All medications have been reviewed PHYSICAL EXAMINATION: GENERAL: The patient is alert and oriented x4, Well developed, well nourished. Tremors noted on exam. HEENT: Pupils are round and equally reacting to light. EOMI. no scleral icterus. No conjunctival pallor. Normocephalic, atraumatic. No pharyngeal erythema. No thyromegaly. CARDIOVASCULAR: S1 and S2 muffled PULMONARY: diminished breath sounds bilaterally with no wheezing or rhonchi noted. ABDOMEN: soft. Nontender on exam. obese. non-distended, normoactive bowel sounds. No palpable organomegaly. MUSCULOSKELETAL: No joint swelling or deformity. EXTREMITIES: No cyanosis, clubbing, or pedal edema. NEUROLOGICAL: Gross neurological examination did not reveal any focal deficits. Diffuse weakness SKIN: No rashes. Assessment: Acute alcohol intoxication with acute alcohol withdrawal Acute alcoholic hepatitis Early delirium tremens History of asthma, not an exacerbation Hypertension History of anxiety/bipolar depression GI prophylaxis DVT prophylaxis Full code Plan: Patient will be continued on CIWA protocol and will add oral Ativan along with Librium taper Encouraged oral intake and continue with antinausea medications and will add Reglan as needed Encouraged increased activity as tolerated and will have physical therapy evaluate the patient Follow-up a.m. labs ordered Possible discharge in the next 24-48 hours The impression and plan of care has been dictated by Mikayla Dumont, nurse practitioner as directed. Dr. Naa MD I have performed a history and examination and MDM of this patient, discussed the same with the dictator, and agree with the dictator's assessment and plan as written ,documented as a scribe. Based on total visit time, I have performed more than 50% of the visit. Any additional findings or plans will be noted. Objective - Vital Signs Vital signs: Vital Signs Temp 98.3 F 07/18/23 12:07 Pulse 74 07/18/23 12:07 Resp 17 07/18/23 12:07 BP 146/92 07/18/23 12:07 Pulse Ox 92 L 07/18/23 12:07 FiO2 Intake & Output 07/17/23 07/18/23 07/18/23 18:59 06:59 18:59 Weight 77.111 kg Other: Voiding Method Toilet Toilet Toilet # Voids 2 1 - Labs CBC & Chem 7: 07/18/23 05:32 07/18/23 05:32 Labs: Abnormal Lab Results - Last 24 Hours (Table) 07/18/23 07/18/23 Range/Units 05:32 05:32 WBC 3.23 L (4.50-10.00) X 10*3/uL RBC 3.88 L (4.10-5.20) X 10*6/uL RDW 15.6 H (11.5-14.5) % Lymphocytes # 0.73 L (0.90-5.00) X 10*3/uL AST 52 H (13-35) U/L ALT 50 H (8-44) U/L Alkaline Phosphatase 39 L (41-126) U/L Total Protein 6.0 L (6.2-8.2) d/dL
[2023-07-18] MEDS ORDERED: METOCLOPRAMIDE 5 MG/ML 2 ML VIAL IVP PRN (15:39)
[2023-07-18] MEDS: PANTOPRAZOLE 40 MG TABLET PO SCH (17:26)
[2023-07-18] MEDS: LORazepam 1 MG TAB PO PRN (17:41)
[2023-07-18] MEDS: traZODone HCL 100 MG TAB PO SCH (21:07)
[2023-07-19] MEDS: ACETAMINOPHEN TAB 325 MG TAB PO PRN (02:44)
[2023-07-19] MEDS: LORazepam 1 MG TAB PO PRN (06:14)
[2023-07-19] MEDS: LEVOTHYROXINE 75 MCG TAB PO SCH (06:36)
[2023-07-19] MEDS: ARIPiprazole 5 MG TAB PO SCH (08:18)
[2023-07-19] MEDS: chlordiazePOXIDE 25 MG CAP PO SCH (08:18)
[2023-07-19] MEDS: lamoTRIgine 100 MG TAB PO SCH (08:18)
[2023-07-19] MEDS: PANTOPRAZOLE 40 MG TABLET PO SCH (08:18)
[2023-07-19] MEDS: ESCITALOPRAM 20 MG TAB PO SCH (08:18)
[2023-07-19] MEDS: THIAMINE 100 MG TAB PO SCH (08:18)
[2023-07-19 08:22] VITALS: RESP 16
[2023-07-19] MEDS ORDERED: cloNIDine HCL 0.1 MG TAB PO STA ×2 (09:30→12:54)
[2023-07-19 12:59] VITALS: PULSE 64; TEMP 97.7
[2023-07-19 13:31] LABS: Magnesium 1.6 mg/dL (1.5-2.4)
[2023-07-19 13:33] LABS: ALT 56 U/L (8-44); AST 53 U/L (13-35); Albumin 4.7 d/dL (3.8-4.9); Albumin/Globulin Ratio 2.04 Ratio (1.60-3.17); Alkaline Phosphatase 44 U/L (41-126); BUN/Creat Ratio 9.86 Ratio (12.00-20.00); Blood Urea Nitrogen 6.9 mg/dL (9.0-27.0); Calcium 9.6 mg/dL (8.7-10.3); Carbon Dioxide 24.5 mmol/L (21.6-31.8); Chloride 102 mmol/L (96-109); Globulin 2.3 d/dL (1.6-3.3); Glucose 98 mg/dL (70-110); Potassium 3.9 mmol/L (3.5-5.5); Sodium 140 mmol/L (135-145); Total Bilirubin 0.5 mg/dL (0.3-1.2)
[2023-07-19 14:34] VITALS: BP 137/88
--- NOTE | 2023-07-21 20:34 | P.DS ---
Providers Date of admission: 07/17/23 06:13 Expected date of discharge: 07/19/23 Attending physician: Chris Tiwari Primary care physician: Stated None Hospital Course: Final diagnosis Acute alcohol intoxication with acute alcohol withdrawal Acute alcoholic hepatitis Early delirium tremens History of asthma, not an exacerbation Hypertension History of anxiety/bipolar depression GI prophylaxis DVT prophylaxis Full code Discharge disposition Patient is being discharged in a stable condition with guarded prognosis to home. Patient will follow-up with the [facility]'s clinic in the outpatient setting upon discharge. Patient is to follow-up with [facility] outpatient as well. Patient will continue Librium taper on discharge. Total time taken is greater than 35 minutes. Hospital course This is a 62-year-old female who was recently admitted with acute alcohol intoxication with acute alcohol withdrawal and early delirium tremens being closely monitored. Patient maintained on CIWA protocol and was started on Librium taper showing improvements in patient feels ready to go home. Patient reports she has been to alcohol rehab previously and would like to follow-up with [facility] outpatient. Patient will be given a short Librium taper to complete on discharge. Patient having some elevated blood pressures with history of hypertension although had been off blood pressure medications as she had not been drinking. We will continue couple days of Catapres 0.1 mg twice a day and patient has been instructed to follow-up with primary care provider. Currently no reports of chest pain, shortness of breath, or palpitations. Patient is afe brile. No reports of nausea or vomiting and patient is tolerating diet. Patient will be discharged home today. Guarded prognosis and high risk for readmission given patient's continued use of alcohol. Physical exam: Gen: This is a 62-year-old female who is awake, alert and oriented 3, well- developed, well-nourished HEENT: Head is atraumatic, normocephalic. Pupils equal, round. Sclerae is an icteric. NECK: Supple. No JVD. No lymphadenopathy. No thyromegaly. LUNGS: Clear to auscultation. No wheezes or rhonchi. No intercostal retractions. HEART: Regular rate and rhythm. No murmur. ABDOMEN: Soft. Bowel sounds are present. No masses. No tenderness. EXTREMITIES: No pedal edema. No calf tenderness. NEUROLOGICAL: Patient is awake, alert and oriented x3. Cranial nerves 2 through 12 are grossly intact. Please refer to medication reconciliation sheet for a list of medications. The impression and plan of care has been dictated by Mikayla Dumont, Nurse Practitioner as directed. Dr. Naa MD I have performed a history and examination and MDM of this patient, discussed the same with the dictator, and agree with the dictator's assessment and plan as written ,documented as a scribe. Based on total visit time, I have performed more than 50% of the visit. Patient Condition at Discharge: Stable Plan - Discharge Summary Discharge Rx Participant: Yes New Discharge Prescriptions: New chlordiazePOXIDE HCl [Librium] 25 mg PO TID #6 cap Acetaminophen Tab [Tylenol] 650 mg PO Q6HR PRN tab PRN Reason: Mild Pain Or Fever > 100.5 cloNIDine HCL [Catapres] 0.1 mg PO BID 5 Days #10 tab Continue Escitalopram [Lexapro] 20 mg PO DAILY Thiamine [Vitamin B-1] 100 mg PO DAILY #30 tab Albuterol Inhaler [Ventolin Hfa Inhaler] 2 puff INHALATION RT-Q6H PRN #1 each PRN Reason: Shortness Of Breath Nitroglycerin Sl Tabs [Nitrostat] 0.4 mg SL Q5M PRN PRN Reason: Chest Pain traZODone HCL [Desyrel] 100 mg PO HS lamoTRIgine [LaMICtal] 200 mg PO DAILY ARIPiprazole [Abilify] 7.5 mg PO DAILY Levothyroxine Sodium [Synthroid] 150 mcg PO DAILY Discharge Medication List Albuterol Inhaler [Ventolin Hfa Inhaler] 2 puff INHALATION RT-Q6H PRN #1 each 01/20/23 [Rx] Escitalopram [Lexapro] 20 mg PO DAILY 05/18/23 [History] Nitroglycerin Sl Tabs [Nitrostat] 0.4 mg SL Q5M PRN 05/18/23 [History] ARIPiprazole [Abilify] 7.5 mg PO DAILY 07/09/23 [History] Levothyroxine Sodium [Synthroid] 150 mcg PO DAILY 07/09/23 [History] lamoTRIgine [LaMICtal] 200 mg PO DAILY 07/09/23 [History] traZODone HCL [Desyrel] 100 mg PO HS 07/09/23 [History] Thiamine [Vitamin B-1] 100 mg PO DAILY #30 tab 07/12/23 [Rx] Acetaminophen Tab [Tylenol] 650 mg PO Q6HR PRN tab 07/19/23 [Rx] chlordiazePOXIDE HCl [Librium] 25 mg PO TID #6 cap 07/19/23 [Rx] cloNIDine HCL [Catapres] 0.1 mg PO BID 5 Days #10 tab 07/19/23 [Rx] Follow up Appointment(s)/Referral(s): Fatimah Caraballo MD [STAFF PHYSICIAN] - 1 Week (Cesar from [facility] will call the patient tommorrow to set a new patient appointment. ) Patient Instructions/Handouts: Alcohol Intoxication (DC) Activity/Diet/Wound Care/Special Instructions: Activity Limited until follow-up Follow-up with primary care provider on discharge Follow-up with [facility] outpatient Continue Librium taper as directed Avoid all alcohol Monitor blood pressure 1-2 times daily and keep a diary for primary care follow- up Discharge/Stand Alone Forms: AA Meetings [facility], Who Do I Call?, Outpatient Counseling, Inp Substance Abuse Facilities Discharge Disposition: HOME SELF-CARE
== END 2023-07-19 14:55 | disposition home or self-care (01) ==
LOC: EC 04:32 → 6NMEDSUR 06:13 → 5NMEDONC 16:14
PROVIDERS: ADMIT Hospitalist; ATTEND Hospitalist
DX: F10.231 Alcohol dependence with withdrawal delirium (principal); K70.10 Alcoholic hepatitis without ascites; F10.220 Alcohol dependence with intoxication, uncomplicated; Y90.8 Blood alcohol level of 240 mg/100 ml or more; J45.909 Unspecified asthma, uncomplicated; I10 Essential (primary) hypertension; E89.0 Postprocedural hypothyroidism; F31.9 Bipolar disorder, unspecified; F41.9 Anxiety disorder, unspecified; Z59.00 Homelessness unspecified; Z79.899 Other long term (current) drug therapy; Z79.890 Hormone replacement therapy; Z88.1 Allergy status to other antibiotic agents
CPT/HCPCS: 96361 ×3; 96376; 96372; 96374; 96375; 99285; 36415; 93005; 97161; 80053 ×3; 83735 ×2; 85025 ×2; G0378 ×4; G0480; J2060 ×2; J3411; J2405; C9113 ×2; 80320

== ENCOUNTER 2023-08-14 13:35 | Inpatient (IN) | payer OTHER ==
--- NOTE | 2023-08-14 13:50 | ED ---
General Adult HPI - General Source: patient, EMS, RN notes reviewed Mode of arrival: EMS Limitations: no limitations <Raman Timmons - Last Filed: 08/14/23 13:49> <Clay Garsia - Last Filed: 08/14/23 20:56> - General Chief complaint: Psychiatric Symptoms Stated complaint: Mental Health Time Seen by Provider: 08/14/23 13:36 - History of Present Illness Initial comments: Patient is a pleasant 62-year-old female presenting to the emergency Department with concerns for mental health evaluation. Patient admits to being a chronic drinker. Patient did drink alcohol today, approximately one half of a pint. Normally patient drinks a pint daily. No hallucinations. Patient is depressed and has thoughts of self-harm. Patient has thoughts of running in front of a train and states she has done this before. No homicidal thoughts. No new physical complaints. (Raman Timmons) - Related Data Home Medications Medication Instructions Recorded Confirmed Escitalopram [Lexapro] 20 mg PO DAILY 05/18/23 08/14/23 Nitroglycerin Sl Tabs [Nitrostat] 0.4 mg SL Q5M PRN 05/18/23 08/14/23 ARIPiprazole [Abilify] 7.5 mg PO DAILY 07/09/23 08/14/23 Levothyroxine Sodium [Synthroid] 150 mcg PO DAILY 07/09/23 08/14/23 lamoTRIgine [LaMICtal] 200 mg PO DAILY 07/09/23 08/14/23 traZODone HCL [Desyrel] 100 mg PO HS 07/09/23 08/14/23 Fexofenadine HCl [Debbi Allergy] 180 mg PO DAILY 08/14/23 08/14/23 Previous Rx's Medication Instructions Recorded Albuterol Inhaler [Ventolin Hfa 2 puff INHALATION RT-Q6H PRN #1 01/20/23 Inhaler] each Thiamine [Vitamin B-1] 100 mg PO DAILY #30 tab 07/12/23 Acetaminophen Tab [Tylenol] 650 mg PO Q6HR PRN tab 07/19/23 cloNIDine HCL [Catapres] 0.1 mg PO BID 5 Days #10 tab 07/19/23 Ondansetron Odt [Zofran Odt] 4 mg PO Q8HR PRN #10 tab 08/04/23 Allergies Allergy/AdvReac Type Severity Reaction Status Date / Time clindamycin Allergy Unknown Rash/Hives Verified 08/14/23 18:25 acetylcysteine AdvReac Anaphylaxis Verified 08/14/23 18:25 [From Mucomyst] citalopram [From Celexa] AdvReac Hallucinati Verified 08/14/23 18:25 ons diphenhydramine HCl AdvReac Rapid Verified 08/14/23 18:25 [From Benadryl] Heart Rate Review of Systems ROS Other: All systems not noted in ROS Statement are negative. Constitutional: Denies: fever Eyes: Denies: eye pain ENT: Denies: ear pain Respiratory: Denies: cough, dyspnea Cardiovascular: Denies: chest pain Endocrine: Denies: fatigue Gastrointestinal: Denies: abdominal pain Psychiatric: Reports: as per HPI, depression, suicidal thoughts <Raman Timmons - Last Filed: 08/14/23 13:49> ROS Other: All systems not noted in ROS Statement are negative. <Clay Garsia - Last Filed: 08/14/23 20:56> ROS Statement: Those systems with pertinent positive or pertinent negative responses have been documented in the HPI. Past Medical History Past Medical History: Asthma, Cancer, Hypertension, Thyroid Disorder Additional Past Medical History / Comment(s): History of goiter status post thyroidectomy, questionable history of thyroid cancer although this is not clear, bipolar disorder, depression, history of suicidal ideations, history of drug overdose, alcoholism, seasonal rhinitis, psoriasis, breast cysts, history of broken toes in the right foot, hypertension, History of Any Multi-Drug Resistant Organisms: None Reported Past Surgical History: No Surgical Hx Reported Additional Past Surgical History / Comment(s): Thyroidectomy 1999, SKIN NEVI REMOVED Past Anesthesia/Blood Transfusion Reactions: Previous Problems w/ Anesthesia, Postoperative Nausea & Vomiting (PONV) Additional Past Anesthesia/Blood Transfusion Reaction / Comment(s): patient states she is homeless. Pt is normally independent. Pt is an alcoholic. She is feeling more depressed lately and ashamed of her alcoholism. PT STATED SHE IS A BINGE DRINKER AND IS A BLACK OUT DRINKER,THINKS SHE STARTED DRINKING 4-5 DAYS AGO 3 PINTS A DAY AND WHEN COMING DOWN DRANK SUAVE HAIR SPRAY Pt no longer has a drivers license- she has had 2 DUI's. 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 She is seen at [facility]. Past Psychological History: Anxiety, Bipolar, Depression Smoking Status: Never smoker Past Alcohol Use History: Abuse, Daily, Heavy Past Drug Use History: None Reported - Past Family History Father Family Medical History: Cancer Additional Family Medical History / Comment(s): Father at age 64 of es ophageal cancer. Father was an alcoholic and had cirrhosis of the liver. Mother Family Medical History: Cancer Additional Family Medical History / Comment(s): Mother of breast cancer at age 42yrs. <Raman Timmons - Last Filed: 08/14/23 13:49> General Exam Limitations: no limitations General appearance: alert, in no apparent distress Head exam: Present: normocephalic Eye exam: Present: normal appearance Neck exam: Present: normal inspection Respiratory exam: Present: normal lung sounds bilaterally Cardiovascular Exam: Present: regular rate, normal rhythm GI/Abdominal exam: Present: soft. Absent: tenderness Extremities exam: Present: normal inspection Neurological exam: Present: alert Psychiatric exam: Present: depressed Skin exam: Present: normal color <Raman Timmons - Last Filed: 08/14/23 13:49> Course Vital Signs 08/14/23 13:39 Temperature 98.5 F Pulse Rate 82 Respiratory 18 Rate Blood Pressure 120/79 O2 Sat by Pulse 94 L Oximetry Medical Decision Making - Lab Data Result diagrams: 08/14/23 20:35 <Clay Garsia - Last Filed: 08/14/23 20:56> - Medical Decision Making Patient was pending EPS evaluation due to suicidal ideation. I was notified by nurse that patient was showing moderate signs of alcohol withdrawal. I evaluated the patient is a 823 PM. She did appear to be withdrawing from alcohol. All signs however are stable. Patient states that she has had severe withdrawals in the past. CIWA score is 14. She will be admitted to medicine with consultation to psychiatry. Case discussed with hospitalist for admission (Clay Garsia) - Lab Data Lab Results 08/14/23 Range/Units 19:55 Urine Opiates Screen Not Detected (NotDetected) Ur Oxycodone Screen Not Detected (NotDetected) Urine Methadone Screen Not Detected (NotDetected) Ur Propoxyphene Screen Not Detected (NotDetected) Ur Barbiturates Screen Not Detected (NotDetected) U Tricyclic Antidepress Not Detected (NotDetected) Ur Phencyclidine Scrn Not Detected (NotDetected) Ur Amphetamines Screen Not Detected (NotDetected) U Methamphetamines Scrn Detected H (NotDetected) U Benzodiazepines Scrn Detected H (NotDetected) Urine Cocaine Screen Not Detected (NotDetected) U Marijuana (THC) Screen Not Detected (NotDetected) Disposition <Raman Timmons - Last Filed: 08/14/23 13:49> <Clay Garsia - Last Filed: 08/14/23 20:56> Clinical Impression: Alcohol withdrawal Disposition: ADMITTED IP TO THIS HOSP Condition: Fair
[2023-08-14] MEDS ORDERED: ONDANSETRON 4 MG TAB PO STA (19:53)
[2023-08-14] MEDS ORDERED: THIAMINE 100 MG/ML 2 ML VIAL IM STA (20:23)
[2023-08-14] MEDS ORDERED: LORazepam 2 MG/ML INJ IV PRN ×2 (20:23)
[2023-08-14] MEDS ORDERED: NALOXONE 0.4 MG/ML 1 ML VIAL IV PRN (20:24)
[2023-08-14 20:44] LABS: Amphetamine Screen,Urine Not Detected (NotDetected); Barbiturate Screen,Urine Not Detected (NotDetected); Benzodiazepines Screen,Urine Detected (NotDetected); Cocaine Screen,Urine Not Detected (NotDetected); Methadone Screen, Urine Not Detected (NotDetected); Opiate Screen,Urine Not Detected (NotDetected); Oxycodone Screen, Urine Not Detected (NotDetected); Phencyclidine Screen,Urine Not Detected (NotDetected); Tricyclic Antidepressant,Urine Not Detected (NotDetected); Urn Cannabinoid Scrn Not Detected (NotDetected)
[2023-08-14] MEDS: SODIUM CHLORIDE 0.9% 1,000 ML IV SCH (20:47)
[2023-08-14 20:56] LABS: Basophils % (A) 1 %; Eosinophils # (A) 0.1 k/uL (0-0.7); Eosinophils % (A) 2 %; HCT 45.4 % (34.0-46.0); Lymphocytes # (A) 1.1 k/uL (1.0-4.8); Lymphocytes % (A) 27 %; MCH 32.4 pg (25.0-35.0); MCHC 33.1 g/dL (31.0-37.0); Mean Platelet Volume 8.3; Monocytes # (A) 0.3 k/uL (0-1.0); Monocytes % (A) 7 %; Neutrophils # (A) 2.5 k/uL (1.3-7.7); Neutrophils % (A) 60 %; Platelet Count 186 k/uL (150-450); RBC 4.63 m/uL (3.80-5.40); WBC 4.1 k/uL (3.8-10.6)
[2023-08-14 21:14] LABS: African American GFR (CKD) >90 (>60 ml/min/1.73 sqM); Anion Gap 16 mmol/L; Blood Urea Nitrogen 17 mg/dL (7-17); Calcium 9.6 mg/dL (8.4-10.2); Carbon Dioxide 21 mmol/L (22-30); Chloride 104 mmol/L (98-107); Glucose 105 mg/dL (74-99); Magnesium 1.8 mg/dL (1.6-2.3); Non-African American GFR(CKD) >90 (>60 ml/min/1.73 sqM); Potassium 3.9 mmol/L (3.5-5.1); Sodium 141 mmol/L (137-145)
--- NOTE | 2023-08-14 23:13 | P.HPIM ---
History of Present Illness H&P Date: 08/14/23 Patient is a 62-year-old female with a PMH of EtOH abuse, hypothyroidism status post thyroidectomy, and bipolar disorder who presents to the emergency room for alcohol withdrawal. Patient reports she has been drinking excessively over the past several weeks, up to 3 pints daily of hard liquor. Reports her last drink was just prior to coming into the emergency room. Notes she is trying to cut do wn but was concerned as her previous attempts to detox had failed. She reports a history of delirium tremens with a history of alcohol withdrawal seizures without requiring ICU admissions or Ativan infusions. At time of interview, reported feeling somewhat shaky. Denied any additional complaints. Reports nausea earlier in the day with multiple episodes of nonbloody emesis, now resolved. Denied experiencing chest discomfort, shortness of breath, cough, fever, chills. Patient also reports a history of depression with suicidal ideation reports that she currently does not have any suicidal thoughts or intention of harming herself. In the emergency room, laboratory evaluation was reviewed and revealed urine toxicology positive for methamphetamines and benzodiazepines. ED documentation reviewed and case discussed with ED provider. Review of systems: Pertinent positives and negatives as discussed in HPI, a complete review of systems was performed and all other systems are negative. Physical examination: Vital signs reviewed General: non toxic, no distress, appears at stated age, normal weight Derm: no unusual rashes/lesions, warm Head: atraumatic, normocephalic, symmetric Eyes: EOMI, no lid lag, anicteric sclera, pupils equal round reactive to light ENT: Nose and ears atraumatic Neck: No cervical lymphadenopathy, trachea midline, supple Mouth: no lip lesion, mucus membranes moist Cardiovascular: S1S2 reg, no murmur, positive dorsalis pedis pulse bilateral, no edema Lungs: CTA bilateral, no rhonchi, no rales, no accessory muscle use Abdominal: soft, nontender to palpation, no guarding Ext: muscle strength 5 out of 5 in all 4 extremities grossly, no gross muscle atrophy, no contractures, Neuro: CN II-XI grossly intact, mild outstretched hand tremor Psych: Alert, oriented, appropriate affect Assessment: Alcohol abuse, impending withdrawal Chronic conditions: Hypothyroidism, bipolar disorder Imaging: None performed Data Review: In the emergency room, laboratory evaluation was reviewed and revealed urine toxicology positive for methamphetamines and benzodiazepines. Plan: [facility] protocol with Ativan IV Continue with thiamine Start Librium 25 g po TID IV fluids with normal saline Cardiac monitoring Monitor electrolytes daily DVT prophylaxis: Loveonx Subq The patient is admitted with an anticipated greater than 2 midnight stay for evaluation of EtOH abuse CODE STATUS: Full Code Discussed with: Patient Anticipated discharge place: Home Past Medical History Past Medical History: Asthma, Cancer, Hypertension, Thyroid Disorder Additional Past Medical History / Comment(s): History of goiter status post thyroidectomy, questionable history of thyroid cancer although this is not clear, bipolar disorder, depression, history of suicidal ideations, history of drug overdose, alcoholism, seasonal rhinitis, psoriasis, breast cysts, history of broken toes in the right foot, hypertension, History of Any Multi-Drug Resistant Organisms: None Reported Past Surgical History: No Surgical Hx Reported Additional Past Surgical History / Comment(s): Thyroidectomy 1999, SKIN NEVI REMOVED Past Anesthesia/Blood Transfusion Reactions: Previous Problems w/ Anesthesia, Postoperative Nausea & Vomiting (PONV) Additional Past Anesthesia/Blood Transfusion Reaction / Comment(s): patient states she is homeless. Pt is normally independent. Pt is an alcoholic. She is feeling more depressed lately and ashamed of her alcoholism. PT STATED SHE IS A BINGE DRINKER AND IS A BLACK OUT DRINKER,THINKS SHE STARTED DRINKING 4-5 DAYS AGO 3 PINTS A DAY AND WHEN COMING DOWN DRANK SUAVE HAIR SPRAY Pt no longer has a drivers license- she has had 2 DUI's. 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 She is seen at [facility]. Past Psychological History: Anxiety, Bipolar, Depression Smoking Status: Never smoker Past Alcohol Use History: Abuse, Daily, Heavy Past Drug Use History: None Reported - Past Family History Father Family Medical History: Cancer Additional Family Medical History / Comment(s): Father at age 64 of esopha geal cancer. Father was an alcoholic and had cirrhosis of the liver. Mother Family Medical History: Cancer Additional Family Medical History / Comment(s): Mother of breast cancer at age 42yrs. Medications and Allergies Home Medications Medication Instructions Recorded Confirmed Type Albuterol Inhaler [Ventolin Hfa 2 puff INHALATION RT-Q6H PRN #1 01/20/23 08/14/23 Rx Inhaler] each Escitalopram [Lexapro] 20 mg PO DAILY 05/18/23 08/14/23 History Nitroglycerin Sl Tabs [Nitrostat] 0.4 mg SL Q5M PRN 05/18/23 08/14/23 History ARIPiprazole [Abilify] 7.5 mg PO DAILY 07/09/23 08/14/23 History Levothyroxine Sodium [Synthroid] 150 mcg PO DAILY 07/09/23 08/14/23 History lamoTRIgine [LaMICtal] 200 mg PO DAILY 07/09/23 08/14/23 History traZODone HCL [Desyrel] 100 mg PO HS 07/09/23 08/14/23 History Thiamine [Vitamin B-1] 100 mg PO DAILY #30 tab 07/12/23 08/14/23 Rx Acetaminophen Tab [Tylenol] 650 mg PO Q6HR PRN tab 07/19/23 08/14/23 Rx cloNIDine HCL [Catapres] 0.1 mg PO BID 5 Days #10 tab 07/19/23 08/14/23 Rx Ondansetron Odt [Zofran Odt] 4 mg PO Q8HR PRN #10 tab 08/04/23 08/14/23 Rx Fexofenadine HCl [Debbi Allergy] 180 mg PO DAILY 08/14/23 08/14/23 History Allergies Allergy/AdvReac Type Severity Reaction Status Date / Time clindamycin Allergy Unknown Rash/Hives Verified 08/14/23 18:25 acetylcysteine AdvReac Anaphylaxis Verified 08/14/23 18:25 [From Mucomyst] citalopram [From Celexa] AdvReac Hallucinati Verified 08/14/23 18:25 ons diphenhydramine HCl AdvReac Rapid Verified 08/14/23 18:25 [From Benadryl] Heart Rate Physical Exam Vitals: Vital Signs Temp Pulse Resp BP Pulse Ox 08/14/23 20:00 74 18 128/68 97 08/14/23 13:39 98.5 F 82 18 120/79 94 L Intake and Output 08/14/23 08/14/23 08/15/23 14:59 22:59 06:59 Other: Weight 77.111 kg Results CBC & Chem 7: 08/14/23 20:35 08/14/23 20:35 Labs: Abnormal Lab Results - Last 24 Hours (Table) 08/14/23 08/14/23 Range/Units 19:55 20:35 Carbon Dioxide 21 L (22-30) mmol/L Glucose 105 H (74-99) mg/dL U Methamphetamines Scrn Detected H (NotDetected) U Benzodiazepines Scrn Detected H (NotDetected)
[2023-08-15] MEDS: SODIUM CHLORIDE 0.9% 1,000 ML IV SCH ×3 (00:04→15:12)
[2023-08-15] MEDS: LORazepam 2 MG/ML INJ IV PRN ×3 (02:13→09:13)
[2023-08-15] MEDS ORDERED: chlordiazePOXIDE 25 MG CAP PO SCH (09:00)
[2023-08-15] MEDS: IBUPROFEN 600 MG TAB PO PRN (09:12)
[2023-08-15] MEDS: ENOXAPARIN 40 MG/0.4 ML SYRINGE SQ SCH (09:12)
[2023-08-15] MEDS: THIAMINE 100 MG TAB PO SCH (09:13)
--- NOTE | 2023-08-15 14:11 | P.CN ---
Psychiatric Consult - . Consult date: 08/15/23 Consult:: 08/15/23 13:10 IDENTIFYING DATA: This patient is a 62-year-old female with significant history of alcohol use disorder c/o acute alcohol withdrawal, depression and SI, she currently lives with 2 roommates in a house, she is she has no kids. HISTORY OF PRESENT ILLNESS: The patient presented to the hospital on 08/14/2023 for acute alcohol withdrawal and depression. Patient allegedly made suicidal ideation/statements during triage however was transferred to medical for admission due to patient's severe alcohol withdrawals and history. Patient was seen today by psychiatrist for psychiatric evaluation. Patient was last seen by Dr Batista for psych assessment on 07/11. Patient was trembling at times during the interview. She claims that her anxiety has been elevated. Claims that she has been drinking heavily recently. States that she is unable to cut back. Claims that she is "frustrated with it and states that she is drinking about 1-1-1/2 pints of vodka a day. States that she has been drinking on and off since her 20s. She claims that she was able to move back into her own house. Now has 2 roommates and does not feel lonely. She denies any access to guns or weapons. States that she is currently unemployed however looking for work. States that she has finances as a stressor however the roommates have been helping. States that her mood is a bit better now that she is in the hospital and safely going through withdrawals. She claims that about 2 weeks ago she got out of [facility] however does not want to go back into inpatient rehab. States that she is still having some withdrawal symptoms including tremors anxiety. States that her sleep is poor about 2-3 hours at night. We spoke about medication options and she is agreeable to try acamprosate and as it h elped her in the past. She is not reporting any auditory or visual hallucinations. She is denying any suicidal or homicidal ideations intent or plan. She was fairly future oriented and wanted to get a job and do good for her health. She denies any paranoia or other delusions. Patient's UDS was positive for methamphetamines and BZD PAST PSYCHIATRIC HISTORY: Patient states that he has previously diagnosed bipolar 2 disorder and alcohol use disorder. The patient reports that she does well on her current regimen of Abilify, Lamictal, Lexapro, and trazodone. She is currently open with [facility] however now has switched her providers. She has had prior psychiatric admissions with the last one being in December 2022 on [address]. She does report one prior attempt at suicide by jumping in front of a train in the distant past. PAST MEDICAL HISTORY: Past Medical History: Asthma, Cancer, Hypertension, Thyroid Disorder Additional Past Medical History / Comment(s): History of goiter status post thyroidectomy, questionable history of thyroid cancer although this is not clear, bipolar disorder, depression, history of suicidal ideations, history of drug overdose, alcoholism, seasonal rhinitis, psoriasis, breast cysts, history of broken toes in the right foot, hypertension, History of Any Multi-Drug Resistant Organisms: None Reported Past Surgical History: No Surgical Hx Reported Additional Past Surgical History / Comment(s): Thyroidectomy 1999, SKIN NEVI REMOVED Past Anesthesia/Blood Transfusion Reactions: Previous Problems w/ Anesthesia, Postoperative Nausea & Vomiting (PONV) Additional Past Anesthesia/Blood Transfusion Reaction / Comment(s): patient states she is homeless. Pt is normally independent. Pt is an alcoholic. She is feeling more depressed lately and ashamed of her alcoholism. PT STATED SHE IS A BINGE DRINKER AND IS A BLACK OUT DRINKER,THINKS SHE STARTED DRINKING 4-5 DAYS AGO 3 PINTS A DAY AND WHEN COMING DOWN DRANK SUAVE HAIR SPRAY Pt no longer has a drivers license- she has had 2 DUI's. 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 She is seen at [facility]. Past Psychological History: Anxiety, Bipolar, Depression Smoking Status: Never smoker Past Alcohol Use History: Abuse, Daily, Heavy Past Drug Use History: None Reported ALLERGIES: as per EMR CHEMICAL DEPENDENCY HISTORY: as per HPI. FAMILY PSYCHIATRIC/SUBSTANCE USE HISTORY: denies SOCIAL HISTORY: Patient was born and raised in [place], [place]. She is after her second 6 years ago. She has no children. She is currently unemployed. She lives in her house with two roomates. 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 MENTAL STATUS EXAM: General Appearance: Patient appears to be have calderon hair, glasses, stated age is alert, pleasant, and cooperative. Patient appears to have fair hygiene and grooming wearing hospital gown with fair eye contact. Behavior: Patient is calmly lying in bed without any agitated behavior. attempts to cooperate Speech: Patient's speech is fluent and nonpressured. hesitant Mood/Affect: Patient reports their mood is "now better", affect is congruent Suicidality/Homicidality: Patient vehemently denies any suicidal or homicidal ideation Perceptions: Patient denies any visual hallucinations and denies any auditory hallucinations Though content/process: There is no evidence of any delusional thought content and thought process is linear and goal-directed. future oriented. Memory and concentration: AOX3, grossly intact for the purposes of this session. Can spell "WORLD" backwards Judgment and insight: Fair IMPRESSIONS: Alcohol use disorder, severe dependence with alcohol withdrawal History of depression PLAN: -At this time patient DOES NOT meet criteria for inpatient psychiatric admission. -Would recommend the following medication changes/additions: We'll continue with current medications including Lexapro 20 mg daily for mood/anxiety, trazodone increased to 150 mg daily at bedtime for insomnia/mood, continue Abilify 7.5 mg daily for mood stabilization, Lamictal 200 mg daily for mood stabilization. Librium was increased to 25 mg 4 times a day scheduled with plan to taper off for alcohol withdrawal. Patient was agreeable to try acamprosate again tid for alcohol cravings. -CIWA protocol with PRN Ativan for alcohol withdrawal. Continue to monitor vital signs. -addiction social worker to provide patient with outpatient mental health/psychiatry resources for appropriate follow up upon discharge -Bullet Maker spoke with patient about substance abuse and the harmful effects on medical and mental health, patient verbally understood and agreed. -addiction social worker to provide patient substance use treatment resources including AA/NA meetings in the community. -addiction social worker to provide patient with access line number to call for inpatient substance rehab -Communicated plan to patient's nurse -can continue F/u with [facility] for INGR[facility] treatment aswell. -Psychiatry will sign off at this time -Please contact with any questions. 08/15/23 14:04 08/15/23 14:08
--- NOTE | 2023-08-15 14:13 | P.PN ---
Subjective Progress Note Date: 08/15/23 Hospital course: Patient is a very pleasant 62-year-old female with a past medical history of EtOH abuse, hypothyroidism status post thyroidectomy, and bipolar disorder. She presented to the emergency department on 08/14/23 requesting assistance with alcohol withdrawal. Pa labs were completed and reviewed Patient reports history of difficult with draws with severe DTs, withdrawal seizures, and prolonged ICU stays. Patient reports she has been on a fisher drinking 2 pints of alcohol daily for the past 2 weeks. She underwent full evaluation in the emergency department. Labs were completed and reviewed. CBC and BMP were unremarkable. Urine drug screen was positive for methamphetamines and benzodiazepines. Sometime in the emergency department, patient expressed concerns of having suicidal ideations. Psychiatry was consulted. Patient was admitted under our services for medically controlled detox. Physical exam: Vital signs reviewed and stable. General: Nontoxic, no distress and appears stated age. Derm: Skin warm and dry, normal coloration for ethnicity. Head: Atraumatic, normocephalic and symmetric. Eyes: EOMs intact, no lid lag, and anicteric sclera Mouth: no lip lesions, mucus membranes moist Cardiovascular: regular rate and rhythm with normal S1S2, no murmur, positive posterior tibial pulses bilaterally, and cap refill < 2 seconds. Lungs: Respirations even, regular, and unlabored on room air. Lungs CTA bilaterally, no rhonchi, no rales, no wheezing, and no accessory muscle usage. Abdominal: soft, nontender to palpation, no guarding, no appreciable organomegaly Ext: ROM intact. No gross muscle atrophy, no edema, no contractures Neuro: Speech clear, face symmetrical and CN II-XII grossly intact with no noted focal neuro deficits Psych: Alert and oriented to person, place, time, and situation. Appropriate and pleasant affect. Assessment and Plan of Care: Alcohol withdrawal History of alcohol withdrawal seizures and DTs Polysubstance abuse with methamphetamines and benzodiazepines -Continue monitoring of CIWA scores and patient to be medicated with Ativan 0.5 mg every 4 hours as needed for CIWA score of 4-5, Ativan 1 mg every 4 hours for CIWA score of 6-7, Ativan 2 mg every 3 hours CIWA score of 8-9, and Ativan 2 mg every 2 hours forr CIWA score of 10 or greater. -Continuous IV hydration with 0.9% normal saline at 75 mL's per hour. -Thiamine 100 mg twice a day -Multivitamin daily -Folate 1 mg daily -Seizure, fall, aspiration, and elopement precautions to continue. -Urine drug screen positive for benzodiazepines and methamphetamines -Continued close monitoring of electrolytes and replace as needed, orders morning CBC, CMP, and magnesium.. -Telemetry monitoring. Suicidal ideations -Currently patient denies having any suicidal or homicidal ideations. -Psychiatry consulted. -Continue suicide precautions until cleared by psychiatry. CODE STATUS: Full code DVT prophylaxis: Lovenox Discussed with: Patient and RN Anticipated discharge date: Clinical course to determine Anticipated discharge place: Home Patient was seen independently by Nurse Pracitioner. This document was prepared using [employer] dictation software. Please allow for errors in polish compounder, while rare they do occur. Vahid Ernandez NP rendered care for this patient independently, reviewed the findings and plan as documented in the note above. I did not physically speak with or examine the patient on this date. Objective - Vital Signs Vital signs: Vital Signs Temp 98.5 F 08/14/23 13:39 Pulse 66 08/15/23 04:00 Resp 16 08/15/23 04:00 BP 133/85 08/15/23 04:00 Pulse Ox 96 08/15/23 04:00 FiO2 Intake & Output 08/14/23 08/15/23 08/15/23 18:59 06:59 18:59 Weight 77.111 kg - Labs CBC & Chem 7: 08/16/23 06:14 08/16/23 06:14 Labs: Abnormal Lab Results - Last 24 Hours (Table) 08/14/23 08/14/23 Range/Units 19:55 20:35 Carbon Dioxide 21 L (22-30) mmol/L Glucose 105 H (74-99) mg/dL U Methamphetamines Scrn Detected H (NotDetected) U Benzodiazepines Scrn Detected H (NotDetected)
[2023-08-15] MEDS ORDERED: NON FORMULARY DRUG (Lamotrigine [Lamictal] 200 MG Tablet) PO SCH (14:15)
[2023-08-15] MEDS: lamoTRIgine 100 MG TAB PO SCH (14:32)
[2023-08-15] MEDS: chlordiazePOXIDE 25 MG CAP PO SCH ×2 (17:28→21:27)
[2023-08-15] MEDS: ACAMPROSATE CALCIUM 333 MG TABLET.DR PO SCH ×2 (17:28→21:27)
[2023-08-15] MEDS ORDERED: traZODone HCL 50 MG TAB PO SCH (21:00)
[2023-08-16] MEDS: SODIUM CHLORIDE 0.9% 1,000 ML IV SCH (02:05)
[2023-08-16 07:55] VITALS: BP 128/81; PULSE 69; RESP 17; TEMP 98.5
[2023-08-16] MEDS ORDERED: ARIPiprazole 5 MG TAB PO SCH (09:00)
[2023-08-16] MEDS ORDERED: ESCITALOPRAM 20 MG TAB PO SCH (09:00)
[2023-08-16] MEDS: chlordiazePOXIDE 25 MG CAP PO SCH ×2 (09:37→12:19)
[2023-08-16] MEDS: ENOXAPARIN 40 MG/0.4 ML SYRINGE SQ SCH (09:37)
[2023-08-16] MEDS: lamoTRIgine 100 MG TAB PO SCH (09:37)
[2023-08-16] MEDS: THIAMINE 100 MG TAB PO SCH (09:37)
[2023-08-16] MEDS: ACAMPROSATE CALCIUM 333 MG TABLET.DR PO SCH (09:37)
[2023-08-16] MEDS: IBUPROFEN 600 MG TAB PO PRN (09:38)
[2023-08-16] MEDS: LORazepam 2 MG/ML INJ IV PRN (09:38)
[2023-08-16] MEDS ORDERED: ACAMPROSATE CALCIUM 333 MG TABLET.DR PO SCH (10:01)
[2023-08-16 11:04] LABS: HCT 38.8 % (37.2-46.3); MCH 32.3 pg (27.0-32.0); MCHC 33.5 d/dL (32.0-37.0); MCV 96.5 FL (80.0-97.0); Mean Platelet Volume 11.2 FL (9.5-12.2); NRBC Per 100 WBC 0 X 10*3/uL (0.00-0.01); Platelet Count 161 X 10*3/uL (140-440); RBC 4.02 X 10*6/uL (4.10-5.20); RDW 14.9 % (11.5-14.5)
--- NOTE | 2023-08-16 11:16 | P.DS ---
Providers Date of admission: 08/14/23 20:25 Expected date of discharge: 08/16/23 Attending physician: Sallie Salcedo MD Consults: 08/14/23 20:24 Consult Physician Routine Consulting Provider: Rahul Colón Consult Reason/Comments: suicidal ideation Do you want consulting provider notified?: Yes Primary care physician: [facility] Hospital Course: Discharge Diagnosis: Alcohol withdrawal History of alcohol withdrawal seizures and DTs Polysubstance abuse with methamphetamines and benzodiazepines Suicidal ideations. Patient reportedly had reports of suicidal ideations during initial presentation when intoxicated, patient evaluated once clinically sober denied any and all thoughts of harming herself or anyone else. Patient did report history of suicidal attempt 8 years ago but adamantly denies suicidal ideations at this time. She was evaluated by psychiatrist who recommended continuation of Lamictal 200 mg daily, Lexapro 20 mg daily, increasing trazodone 250 mg nightly, and starting patient on Campral 666 mg 3 times daily. Hospital Course: Patient is a very pleasant 62-year-old female with a past medical history of EtOH abuse, hypothyroidism status post thyroidectomy, and bipolar disorder. She presented to the emergency department on 08/14/23 requesting assistance with alcohol withdrawal. Pa labs were completed and reviewed Patient reports history of difficult with draws with severe DTs, withdrawal seizures, and prolonged ICU stays. Patient reports she has been on a fisher drinking 2 pints of alcohol daily for the past 2 weeks. She underwent full evaluation in the emergency department. Labs were completed and reviewed. CBC and BMP were unremarkable. Urine drug screen was positive for methamphetamines and benzodiazepines. Sometime in the emergency department, patient expressed concerns of having suicidal ideations. Psychiatry was consulted. Patient was admitted under our services for medically controlled detox. Patient was monitored overnight. She was evaluated by psychiatry and started on Campral 666 mg 3 times daily and trazodone was increased to 150 mg nightly. Patient has required an additional 3 mg of Ativan over the past 24 hours for withdrawal symptoms. Currently CIWA score is 0. Patient declining assistance with placement in outpatient drug and alcohol rehabilitation program. She is requesting to follow up with [facility]. Medically, patient is stable for discharge at this time, it is highly recommended patient avoid any and all alcohol use. Patient discharged home at this time and encouraged to make appointment with [facility]. Patient was provided with outpatient community resources available to her including support groups, counseling, and inpatient drug and alcohol rehabilitation facilities.. Physical exam: Vital signs reviewed and stable. General: Nontoxic, no distress and appears stated age. Derm: Skin warm and dry, normal coloration for ethnicity. Head: Atraumatic, normocephalic and symmetric. Eyes: EOMs intact, no lid lag, and anicteric sclera Mouth: no lip lesions, mucus membranes moist Cardiovascular: regular rate and rhythm with normal S1S2, no murmur, positive posterior tibial pulses bilaterally, and cap refill < 2 seconds. Lungs: Respirations even, regular, and unlabored on room air. Lungs CTA bilaterally, no rhonchi, no rales, no wheezing, and no accessory muscle usage. Abdominal: soft, nontender to palpation, no guarding, no appreciable organomegaly Ext: ROM intact. No gross muscle atrophy, no edema, no contractures Neuro: Speech clear, face symmetrical and CN II-XII grossly intact with no noted focal neuro deficits Psych: Alert and oriented to person, place, time, and situation. Appropriate and pleasant affect. A total of 32 minutes of time were spent preparing this complex discharge summary. Pt was discharged on 08/16/23 to 11:15 AM. Patient was seen independently by Nurse Practitioner. This document was prepared using [employer] dictation software. Please allow for errors in potato chip packaging machine operator while rare they do occur. Vahid Ernandez PUD[employer]ING rendered care for this patient independently, reviewed the findings and plan as documented in the note above. I did not physically speak with or examine the patient on this date. Patient Condition at Discharge: Stable Plan - Discharge Summary Discharge Rx Participant: Yes New Discharge Prescriptions: New Acamprosate Calcium [Campral] 666 mg PO TID 30 Days #90 tab traZODone HCL [Desyrel] 150 mg PO HS 30 Days #90 tab Continue Escitalopram [Lexapro] 20 mg PO DAILY Thiamine [Vitamin B-1] 100 mg PO DAILY #30 tab Acetaminophen Tab [Tylenol] 650 mg PO Q6HR PRN tab PRN Reason: Mild Pain Or Fever > 100.5 Ondansetron Odt [Zofran ODT] 4 mg PO Q8HR PRN #10 tab PRN Reason: Nausea Albuterol Inhaler [Ventolin Hfa Inhaler] 2 puff INHALATION RT-Q6H PRN #1 each PRN Reason: Shortness Of Breath Nitroglycerin Sl Tabs [Nitrostat] 0.4 mg SL Q5M PRN PRN Reason: Chest Pain lamoTRIgine [LaMICtal] 200 mg PO DAILY ARIPiprazole [Abilify] 7.5 mg PO DAILY Levothyroxine Sodium [Synthroid] 150 mcg PO DAILY cloNIDine HCL [Catapres] 0.1 mg PO BID 5 Days #10 tab Fexofenadine HCl [Debbi Allergy] 180 mg PO DAILY Triamcinolone 0.1% Cream [Kenalog 0.1% Cream] 1 applicatio TOPICAL BID PRN PRN Reason: psoriasis Discontinued traZODone HCL [Desyrel] 100 mg PO HS Discharge Medication List Albuterol Inhaler [Ventolin Hfa Inhaler] 2 puff INHALATION RT-Q6H PRN #1 each 01/20/23 [Rx] Escitalopram [Lexapro] 20 mg PO DAILY 05/18/23 [History] Nitroglycerin Sl Tabs [Nitrostat] 0.4 mg SL Q5M PRN 05/18/23 [History] ARIPiprazole [Abilify] 7.5 mg PO DAILY 07/09/23 [History] Levothyroxine Sodium [Synthroid] 150 mcg PO DAILY 07/09/23 [History] lamoTRIgine [LaMICtal] 200 mg PO DAILY 07/09/23 [History] Thiamine [Vitamin B-1] 100 mg PO DAILY #30 tab 07/12/23 [Rx] Acetaminophen Tab [Tylenol] 650 mg PO Q6HR PRN tab 07/19/23 [Rx] cloNIDine HCL [Catapres] 0.1 mg PO BID 5 Days #10 tab 07/19/23 [Rx] Ondansetron Odt [Zofran ODT] 4 mg PO Q8HR PRN #10 tab 08/04/23 [Rx] Fexofenadine HCl [Debbi Allergy] 180 mg PO DAILY 08/14/23 [History] Triamcinolone 0.1% Cream [Kenalog 0.1% Cream] 1 applicatio TOPICAL BID PRN 08/15/23 [History] Acamprosate Calcium [Campral] 666 mg PO TID 30 Days #90 tab 10/10/23 [Rx] traZODone HCL [Desyrel] 150 mg PO HS 30 Days #90 tab 08/16/23 [Rx] Follow up Appointment(s)/Referral(s): [facility] [Outside] - As Needed [facility] [Primary Care Provider] - 1-2 days Patient Instructions/Handouts: Trazodone (By mouth), Acamprosate (By mouth), Alcohol Withdrawal (DC), Polysubstance Abuse (ED), Alcohol Dependence (DC) Activity/Diet/Wound Care/Special Instructions: Strongly recommend cessation of any and all alcohol use and please follow up with [facility] as we discussed. Patient would like flu vaccine prior to discharge. Patient has med bags in our inpatient pharmacy-slips are in front of chart. Discharge/Stand Alone Forms: AA Meetings [facility], AA Meetings [facility], Outpatient Counseling, In Substance Abuse Facilities Discharge Disposition: HOME SELF-CARE
[2023-08-16 11:19] LABS: ALT 57 U/L (8-44); AST 61 U/L (13-35); Albumin 3.8 d/dL (3.8-4.9); Albumin/Globulin Ratio 1.81 Ratio (1.60-3.17); Alkaline Phosphatase 32 U/L (41-126); BUN/Creat Ratio 12.62 Ratio (12.00-20.00); Blood Urea Nitrogen 10.1 mg/dL (9.0-27.0); Calcium 8.5 mg/dL (8.7-10.3); Carbon Dioxide 26.2 mmol/L (21.6-31.8); Chloride 105 mmol/L (96-109); Globulin 2.1 d/dL (1.6-3.3); Glucose 89 mg/dL (70-110); Magnesium 1.6 mg/dL (1.5-2.4); Potassium 3.7 mmol/L (3.5-5.5); Sodium 140 mmol/L (135-145); Total Bilirubin 0.6 mg/dL (0.3-1.2); Total Protein 5.9 d/dL (6.2-8.2)
== END 2023-08-16 14:25 | disposition home or self-care (01) | DRG 775 ==
LOC: EC 13:35 → 5NMEDONC 20:25
PROVIDERS: ADMIT Internal Medicine; ATTEND Internal Medicine
DX: F10.131 Alcohol abuse with withdrawal delirium (principal); R45.851 Suicidal ideations; I10 Essential (primary) hypertension; F31.9 Bipolar disorder, unspecified; F15.10 Other stimulant abuse, uncomplicated; F13.10 Sedative, hypnotic or anxiolytic abuse, uncomplicated; L40.9 Psoriasis, unspecified; E03.9 Hypothyroidism, unspecified; F41.9 Anxiety disorder, unspecified; J45.909 Unspecified asthma, uncomplicated; Z79.890 Hormone replacement therapy; Z63.72 Alcoholism and drug addiction in family; Z81.1 Family history of alcohol abuse and dependence; Z79.899 Other long term (current) drug therapy; Z91.51 Personal history of suicidal behavior; Z85.9 Personal history of malignant neoplasm, unspecified; Z88.1 Allergy status to other antibiotic agents; Z88.8 Allergy status to other drugs, medicaments and biological substances
CPT/HCPCS: 80048; 80053; 80306; 82075; 83735; 85025; 85027; 96361; 96372; 96374; 96376; 99285

== ENCOUNTER 2023-08-23 00:46 | Observation (INO) | payer OTHER ==
--- NOTE | 2023-08-23 00:54 | ED ---
Alcohol HPI - General Chief Complaint: Alcohol Stated Complaint: ETOH Time Seen by Provider: 08/23/23 00:54 Source: patient, EMS Mode of arrival: EMS - History of Present Illness Initial Comments: Rosa is a 62-year-old female with history of alcoholism who presents the ER today for evaluation of alcohol intoxication with a desire to quit drinking currently awaiting placement in the [facility]. Patient states she's been drinking about a fifth of vodka a day, last drink earlier today. MD Complaint: alcohol intoxication - Related Data Home Medications Medication Instructions Recorded Confirmed Escitalopram [Lexapro] 20 mg PO DAILY 05/18/23 08/14/23 Nitroglycerin Sl Tabs [Nitrostat] 0.4 mg SL Q5M PRN 05/18/23 08/14/23 ARIPiprazole [Abilify] 7.5 mg PO DAILY 07/09/23 08/14/23 Levothyroxine Sodium [Synthroid] 150 mcg PO DAILY 07/09/23 08/14/23 lamoTRIgine [LaMICtal] 200 mg PO DAILY 07/09/23 08/14/23 Fexofenadine HCl [Debbi Allergy] 180 mg PO DAILY 08/14/23 08/14/23 Triamcinolone 0.1% Cream [Kenalog 1 applicatio TOPICAL BID PRN 08/15/23 08/15/23 0.1% Cream] Previous Rx's Medication Instructions Recorded Albuterol Inhaler [Ventolin Hfa 2 puff INHALATION RT-Q6H PRN #1 01/20/23 Inhaler] each Thiamine [Vitamin B-1] 100 mg PO DAILY #30 tab 07/12/23 Acetaminophen Tab [Tylenol] 650 mg PO Q6HR PRN tab 07/19/23 cloNIDine HCL [Catapres] 0.1 mg PO BID 5 Days #10 tab 07/19/23 Ondansetron Odt [Zofran ODT] 4 mg PO Q8HR PRN #10 tab 08/04/23 Acamprosate Calcium [Campral] 666 mg PO TID 30 Days #90 tab 08/16/23 traZODone HCL [Desyrel] 150 mg PO HS 30 Days #90 tab 08/16/23 Allergies Allergy/AdvReac Type Severity Reaction Status Date / Time clindamycin Allergy Unknown Rash/Hives Verified 08/23/23 00:52 acetylcysteine AdvReac Anaphylaxis Verified 08/23/23 00:52 [From Mucomyst] citalopram [From Celexa] AdvReac Hallucinati Verified 08/23/23 00:52 ons diphenhydramine HCl AdvReac Rapid Verified 08/23/23 00:52 [From Benadryl] Heart Rate Review of Systems ROS Statement: Those systems with pertinent positive or pertinent negative responses have been documented in the HPI. ROS Other: All systems not noted in ROS Statement are negative. Past Medical History Past Medical History: Asthma, Cancer, Hypertension, Thyroid Disorder Additional Past Medical History / Comment(s): History of goiter status post thyroidectomy, questionable history of thyroid cancer although this is not clear, bipolar disorder, depression, history of suicidal ideations, history of drug overdose, alcoholism, seasonal rhinitis, psoriasis, breast cysts, history of broken toes in the right foot, hypertension, History of Any Multi-Drug Resistant Organisms: None Reported Past Surgical History: No Surgical Hx Reported Additional Past Surgical History / Comment(s): Thyroidectomy 1999, SKIN NEVI R EMOVED Past Anesthesia/Blood Transfusion Reactions: Previous Problems w/ Anesthesia, Postoperative Nausea & Vomiting (PONV) Additional Past Anesthesia/Blood Transfusion Reaction / Comment(s): Lives in a house with two roommates. ETOH. Pt no longer has a drivers license- she has had 2 DUI's. 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 She is seen at [facility]. Past Psychological History: Anxiety, Bipolar, Depression Smoking Status: Never smoker Past Alcohol Use History: Abuse Past Drug Use History: None Reported - Past Family History Father Family Medical History: Cancer Additional Family Medical History / Comment(s): Father at age 64 of esophageal cancer. Father was an alcoholic and had cirrhosis of the liver. Mother Family Medical History: Cancer Additional Family Medical History / Comment(s): Mother of breast cancer at age 42yrs. General Exam - General Exam Comments Initial Comments: Physical Exam GENERAL: Patient is well-developed and well-nourished. Patient is nontoxic and well-hydrated and is in no distress. HENT: Normocephalic, Atraumatic. EYES: PERRL, EOMI PULMONARY: Unlabored respirations. CARDIOVASCULAR: RRR Warm and well perfused extremities ABDOMEN: Non-distended SKIN: No rashes or bruising : Deferred NEUROLOGIC: Alert and oriented Slurred speech MUSCULOSKELETAL: Moving all extremities with no apparent injury PSYCHIATRIC: Depression, tearful Course Vital Signs 08/23/23 08/23/23 08/23/23 00:48 02:24 04:00 Temperature 97.8 F Pulse Rate 65 68 70 Respiratory 18 16 18 Rate Blood Pressure 122/80 108/77 105/65 O2 Sat by Pulse 94 L 95 94 L Oximetry Medical Decision Making - Medical Decision Making Was pt. sent in by a medical professional or institution (, PA, LABEL STAMPER, urgent care, hospital, or [facility]...) When possible be specific @ -No Did you speak to anyone other than the patient for history (EMS, parent, family, police, friend...)? What history was obtained from this source @ -No Did you review nursing and triage notes (agree or disagree)? Why? @ -I reviewed and agree with nursing and triage notes Were old charts reviewed (outside hosp., previous admission, EMS record, old EKG, old radiological studies, urgent care reports/EKG's, ch[facility] records)? Report findings @ -Previous admissions were reviewed Differential Diagnosis (chest pain, altered mental status, abdominal pain women, abdominal pain men, vaginal bleeding, weakness, fever, dyspnea, syncope, headache, dizziness, GI bleed, back pain, seizure, CVA, palpatations, mental health, musculoskeletal)? @ -Differential Altered Mental Status: Hypoglycemia, DKA, hypercapnia, ETOH, overdose, CO poisoning, trauma, myxedema coma, HTN encephalopathy, infection, encephalitis, psychosis, intercranial hemorrhage, hepatic encephalopathy, meningitis, CVA, this is not meant to be an all-inclusive list EKG interpreted by me (3pts min.). @ -As above X-rays interpreted by me (1pt min.). @ -None done CT interpreted by me (1pt min.). @ -None done U/S interpreted by me (1pt. min.). @ -None done What testing was considered but not performed or refused? (CT, X-rays, U/S, labs)? Why? @ -None What meds were considered but not given or refused? Why? @ -None Did you discuss the management of the patient with other professionals (shekhar wyatt i.eNicolasa Riley, PA, LABEL STAMPER, lab, RT, psych nurse, social media marketer, lung gun operator, teacher, minesweeping officer, adult protective caseworker)? Give summary @ -No Was smoking cessation discussed for >3mins.? @ -No Was critical care preformed (if so, how long)? @ -No Were there social determinants of health that impacted care today? How? (Homelessness, low income, unemployed, alcoholism, drug addiction, transportation, low edu. Level, literacy, decrease access to med. care, correction, rehab)? @ -Alcoholism Was there de-escalation of care discussed even if they declined (Discuss DNR or withdrawal of care, Hospice)? DNR status @ -No What co-morbidities impacted this encounter? (DM, HTN, Smoking, COPD, CAD, Cancer, CVA, ARF, Chemo, Hep., AIDS, mental health diagnosis, sleep apnea, morbid obesity)? @ -None Was patient admitted / discharged? Hospital course, mention meds given and route, prescriptions, significant lab abnormalities, going to OR and other pertinent info. @ -Admit Patient was seen and evaluated, she is tearful and upset she has slurred speech there is strong odor of alcohol. Labs were obtained an alcohol level is 362. Given this will likely take over 12 hours for her to be clinically sober we will plan on patient care and observation. Undiagnosed new problem with uncertain prognosis? @ -No Drug Therapy requiring intensive monitoring for toxicity (Heparin, Nitro, Insulin, Cardizem)? @ -No Were any procedures done? @ -No Diagnosis/symptom? @ -Alcohol intoxication Acute, or Chronic, or Acute on Chronic? @ -default Uncomplicated (without systemic symptoms) or Complicated (systemic symptoms)? @ -default Side effects of treatment? @ -No Exacerbation, Progression, or Severe Exacerbation? @ -No Poses a threat to life or bodily function? How? (Chest pain, USA, MA, pneumonia, PE, COPD, DKA, ARF, appy, cholecystitis, CVA, Diverticulitis, Homicidal, Suicidal, threat to staff... and all critical care pts) @ -No - Lab Data Result diagrams: 08/23/23 02:07 08/23/23 02:07 Lab Results 08/23/23 08/23/23 08/23/23 Range/Units 02:07 02:07 02:07 WBC 4.1 (3.8-10.6) k/uL RBC 4.15 (3.80-5.40) m/uL Hgb 13.4 (11.4-16.0) gm/dL Hct 40.8 (34.0-46.0) % MCV 98.5 (80.0-100.0) fL MCH 32.2 (25.0-35.0) pg MCHC 32.7 (31.0-37.0) g/dL RDW 15.1 (11.5-15.5) % Plt Count 195 (150-450) k/uL MPV 8.5 Neutrophils % 53 % Lymphocytes % 32 % Monocytes % 8 % Eosinophils % 2 % Basophils % 1 % Neutrophils # 2.2 (1.3-7.7) k/uL Lymphocytes # 1.3 (1.0-4.8) k/uL Monocytes # 0.3 (0-1.0) k/uL Eosinophils # 0.1 (0-0.7) k/uL Basophils # 0.0 (0-0.2) k/uL Sodium 145 (137-145) mmol/L Potassium 4.1 (3.5-5.1) mmol/L Chloride 112 H (98-107) mmol/L Carbon Dioxide 19 L (22-30) mmol/L Anion Gap 14 mmol/L BUN 10 (7-17) mg/dL Creatinine 0.65 (0.52-1.04) mg/dL Est GFR (CKD-EPI)AfAm >90 (>60 ml/min/1.73 sqM) Est GFR (CKD-EPI)NonAf >90 (>60 ml/min/1.73 sqM) Glucose 75 (74-99) mg/dL Calcium 8.6 (8.4-10.2) mg/dL Magnesium 1.8 (1.6-2.3) mg/dL Total Bilirubin 0.4 (0.2-1.3) mg/dL AST 139 H (14-36) U/L ALT 128 H (4-34) U/L Alkaline Phosphatase 42 (38-126) U/L Total Protein 6.9 (6.3-8.2) g/dL Albumin 4.2 (3.5-5.0) g/dL Lipase 90 (23-300) U/L Urine Color Colorless Urine Appearance Clear (Clear) Urine pH 5.0 (5.0-8.0) Ur Specific [place] 1.009 (1.001-1.035) Urine Protein Negative (Negative) Urine Glucose (UA) Negative (Negative) Urine Ketones Negative (Negative) Urine Blood Negative (Negative) Urine Nitrite Negative (Negative) Urine Bilirubin Negative (Negative) Urine Urobilinogen <2.0 (<2.0) mg/dL Ur Leukocyte Esterase Negative (Negative) Urine Opiates Screen Not Detected (NotDetected) Ur Oxycodone Screen Not Detected (NotDetected) Urine Methadone Screen Not Detected (NotDetected) Ur Propoxyphene Screen Not Detected (NotDetected) Ur Barbiturates Screen Not Detected (NotDetected) U Tricyclic Antidepress Not Detected (NotDetected) Ur Phencyclidine Scrn Not Detected (NotDetected) Ur Amphetamines Screen Not Detected (NotDetected) U Methamphetamines Scrn Not Detected (NotDetected) U Benzodiazepines Scrn Detected H (NotDetected) Urine Cocaine Screen Not Detected (NotDetected) U Marijuana (THC) Screen Not Detected (NotDetected) Serum Alcohol 364 H* mg/dL - EKG Data -: EKG Interpreted by Me EKG shows normal: sinus rhythm Rate: bradycardia EKG Comments: EKG interpreted by me, EKG obtained at 12:50 AM, rate is 56 rhythm is sinus bradycardia, WA 180 QRS [address] QTC [address] elevations or depressions no evidence of acute ischemia or infarction. Disposition Clinical Impression: Alcoholism /alcohol abuse Disposition: ADMITTED IP TO THIS HOSP Condition: Stable Is patient prescribed a controlled substance at d/c from ED?: No Referrals: [facility] [Primary Care Provider] - 1-2 days
[2023-08-23] MEDS ORDERED: SODIUM CHLORIDE 0.9% 1,000 ML IV STA ×2 (02:02→03:29)
[2023-08-23 02:37] LABS: Basophils % (A) 1 %; Eosinophils % (A) 2 %; HCT 40.8 % (34.0-46.0); HGB 13.4 gm/dL (11.4-16.0); Lymphocytes % (A) 32 %; MCH 32.2 pg (25.0-35.0); MCHC 32.7 g/dL (31.0-37.0); MCV 98.5 fL (80.0-100.0); Mean Platelet Volume 8.5; Monocytes % (A) 8 %; Neutrophils % (A) 53 %; Platelet Count 195 k/uL (150-450); RBC 4.15 m/uL (3.80-5.40); RDW 15.1 % (11.5-15.5); WBC 4.1 k/uL (3.8-10.6)
[2023-08-23 02:38] LABS: Eosinophils # (A) 0.1 k/uL (0-0.7); Lymphocytes # (A) 1.3 k/uL (1.0-4.8); Monocytes # (A) 0.3 k/uL (0-1.0); Neutrophils # (A) 2.2 k/uL (1.3-7.7)
[2023-08-23 02:41] LABS: ALT 128 U/L (4-34); AST 139 U/L (14-36); African American GFR (CKD) >90 (>60 ml/min/1.73 sqM); Albumin 4.2 g/dL (3.5-5.0); Alkaline Phosphatase 42 U/L (38-126); Anion Gap 14 mmol/L; Blood Urea Nitrogen 10 mg/dL (7-17); Calcium 8.6 mg/dL (8.4-10.2); Carbon Dioxide 19 mmol/L (22-30); Chloride 112 mmol/L (98-107); Glucose 75 mg/dL (74-99); Lipase 90 U/L (23-300); Magnesium 1.8 mg/dL (1.6-2.3); Non-African American GFR(CKD) >90 (>60 ml/min/1.73 sqM); Potassium 4.1 mmol/L (3.5-5.1); Sodium 145 mmol/L (137-145); Total Bilirubin 0.4 mg/dL (0.2-1.3); Total Protein 6.9 g/dL (6.3-8.2)
[2023-08-23 02:59] LABS: Alcohol 364 mg/dL
[2023-08-23] MEDS ORDERED: THIAMINE 100 MG/ML 2 ML VIAL IM STA (03:28)
[2023-08-23] MEDS ORDERED: LORazepam 0.5 MG TAB PO PRN (03:28)
[2023-08-23] MEDS ORDERED: LORazepam 2 MG/ML INJ IV PRN ×3 (03:28)
[2023-08-23] MEDS ORDERED: LORazepam 1 MG TAB PO PRN (03:28)
[2023-08-23] MEDS ORDERED: ALBUTEROL NEBULIZED 2.5 MG/3 ML INHALATION PRN (03:30)
[2023-08-23] MEDS ORDERED: ACETAMINOPHEN TAB 325 MG TAB PO PRN (03:30)
[2023-08-23] MEDS ORDERED: NALOXONE 0.4 MG/ML 1 ML VIAL IV PRN (03:45)
[2023-08-23] MEDS ORDERED: ONDANSETRON 4 MG/2 ML VIAL IVP PRN (03:47)
--- NOTE | 2023-08-23 03:47 | P.HPIM ---
History of Present Illness H&P Date: 08/23/23 Chief Complaint: alcohol intoxication 62 year old female with alcohol dependance and hypothyroid patient coming in for alcohol intoxication feeling anxious, nauseated denies any vomiting or bleeding , denies abd pain , she is a heavy daily drinker , was just discharged from here less than a week ago. coming back for similar complaint of heavy drinking and trying to quit she is currently on the waiting list for placement at [address] [place] [address] she denies any fever, chills, cough, sore throat, chest pain , trouble breathing , nausea , vomiting, abd pain , changes in urinary or bowel habits. review of systems Pertinent positives as noted in HPI. All other systems were reviewed and are negative on exam Constitutional: No acute distress, conversant, pleasant Eyes: Anicteric sclerae, moist conjunctiva, Pupils equal round reactive to light ENMT: NC/AT Oropharynx clear, no erythema, or exudates Neck: Supple, no masses, or JVD No carotid bruits No thyromegaly Lungs: Clear to auscultation Clear to percussion Normal respiratory effort, no accessory muscle use Cardiovascular: Heart regular in rate and rhythm, No murmurs, gallops, or rubs No peripheral edema Abdominal: Soft Nontender, no guarding, rebound or rigidity Abdomen moving with respiration Normoactive bowel sounds No hepatomegaly, No splenomegaly No palpable mass No abdominal wall hernia noted Extremities: No digital cyanosis No clubbing Pedal pulses intact and symmetrical Radial pulses intact and symmetrical No calf tenderness Psychiatric: Alert and oriented to person, place and time Neuro Muscles Strength 5/5 in all 4 extremities Sensation to light touch grossly present throughout Cranial nerves II-XII grossly intact Lymphatics: no palpable cervical or supraclavicular lymph nodes Past Medical History Past Medical History: Asthma, Cancer, Hypertension, Thyroid Disorder Additional Past Medical History / Comment(s): History of goiter status post thyroidectomy, questionable history of thyroid cancer although this is not clear, bipolar disorder, depression, history of suicidal ideations, history of drug overdose, alcoholism, seasonal rhinitis, psoriasis, breast cysts, history of broken toes in the right foot, hypertension, History of Any Multi-Drug Resistant Organisms: None Reported Past Surgical History: No Surgical Hx Reported Additional Past Surgical History / Comment(s): Thyroidectomy 1999, SKIN NEVI REMOVED Past Anesthesia/Blood Transfusion Reactions: Previous Problems w/ Anesthesia, Postoperative Nausea & Vomiting (PONV) Additional Past Anesthesia/Blood Transfusion Reaction / Comment(s): Lives in a house with two roommates. ETOH. Pt no longer has a drivers license- she has had 2 DUI's. 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 She is seen at [facility]. Past Psychological History: Anxiety, Bipolar, Depression Smoking Status: Never smoker Past Alcohol Use History: Abuse Past Drug Use History: None Reported - Past Family History Father Family Medical History: Cancer Additional Family Medical History / Comment(s): Father at age 64 of esophageal cancer. Father was an alcoholic and had cirrhosis of the liver. Mother Family Medical History: Cancer Additional Family Medical History / Comment(s): Mother of breast cancer at age 42yrs. Medications and Allergies Home Medications Medication Instructions Recorded Confirmed Type Albuterol Inhaler [Ventolin Hfa 2 puff INHALATION RT-Q6H PRN #1 01/20/23 08/14/23 Rx Inhaler] each Escitalopram [Lexapro] 20 mg PO DAILY 05/18/23 08/14/23 History Nitroglycerin Sl Tabs [Nitrostat] 0.4 mg SL Q5M PRN 05/18/23 08/14/23 History ARIPiprazole [Abilify] 7.5 mg PO DAILY 07/09/23 08/14/23 History Levothyroxine Sodium [Synthroid] 150 mcg PO DAILY 07/09/23 08/14/23 History lamoTRIgine [LaMICtal] 200 mg PO DAILY 07/09/23 08/14/23 History Thiamine [Vitamin B-1] 100 mg PO DAILY #30 tab 07/12/23 08/14/23 Rx Acetaminophen Tab [Tylenol] 650 mg PO Q6HR PRN tab 07/19/23 08/14/23 Rx cloNIDine HCL [Catapres] 0.1 mg PO BID 5 Days #10 tab 07/19/23 08/14/23 Rx Ondansetron Odt [Zofran ODT] 4 mg PO Q8HR PRN #10 tab 08/04/23 08/14/23 Rx Fexofenadine HCl [Debbi Allergy] 180 mg PO DAILY 08/14/23 08/14/23 History Triamcinolone 0.1% Cream [Kenalog 1 applicatio TOPICAL BID PRN 08/15/23 08/15/23 History 0.1% Cream] Acamprosate Calcium [Campral] 666 mg PO TID 30 Days #90 tab 08/16/23 Rx traZODone HCL [Desyrel] 150 mg PO HS 30 Days #90 tab 08/16/23 Rx Allergies Allergy/AdvReac Type Severity Reaction Status Date / Time clindamycin Allergy Unknown Rash/Hives Verified 08/23/23 00:52 acetylcysteine AdvReac Anaphylaxis Verified 08/23/23 00:52 [From Mucomyst] citalopram [From Celexa] AdvReac Hallucinati Verified 08/23/23 00:52 ons diphenhydramine HCl AdvReac Rapid Verified 08/23/23 00:52 [From Benadryl] Heart Rate Physical Exam Vitals: Vital Signs Temp Pulse Resp BP Pulse Ox 08/23/23 02:24 68 16 108/77 95 08/23/23 00:48 97.8 F 65 18 122/80 94 L Intake and Output 08/22/23 08/22/23 08/23/23 14:59 22:59 06:59 Other: Weight 85.684 kg Results CBC & Chem 7: 08/23/23 02:07 08/23/23 02:07 Labs: Abnormal Lab Results - Last 24 Hours (Table) 08/23/23 Range/Units 02:07 Chloride 112 H (98-107) mmol/L Carbon Dioxide 19 L (22-30) mmol/L AST 139 H (14-36) U/L ALT 128 H (4-34) U/L Serum Alcohol 364 H* mg/dL Assessment and Plan Assessment: 62 year old female with alcohol abuse and dependance, coming in with acute intoxication, I discussed the case the ED Doc and I accepted the admission for acute severe alcohol intoxication with anticipated length of stay < 2 midnights acute severe alcohol intoxication monitor for alcohol withdrawal syndrome Benzo per ciwa thiamine po daily IVF hydration with normal saline counseled to quit drinking seizure precautions social work consult for substance abuse hypothyroid resume levothyroxine transaminitis secondary to alcohol abuse AST 139 ALT 128 continue to monitor blood work showing WBC 4.1 Hgb 13.4 unremarkable Na 145, K 4.1 , BUN 10 , Cr 0.6 full code DVT PPX lovenox sc 40 mg daily
[2023-08-23 03:59] LABS: Appearance,Urine Clear (Clear); Bilirubin,Urine Negative (Negative); Blood,Urine Negative (Negative); Color,Urine Colorless; Glucose,Urine (UA) Negative (Negative); Ketones,Urine Negative (Negative); Leukocyte Esterase,Urine Negative (Negative); Nitrite,Urine Negative (Negative); Protein,Urine Negative (Negative); Specific Gravity,Urine 1.009 (1.001-1.035); Urobilinogen,Urine <2.0 mg/dL (<2.0)
[2023-08-23 04:18] LABS: Amphetamine Screen,Urine Not Detected (NotDetected); Cocaine Screen,Urine Not Detected (NotDetected); Opiate Screen,Urine Not Detected (NotDetected); Phencyclidine Screen,Urine Not Detected (NotDetected); Urn Cannabinoid Scrn Not Detected (NotDetected)
[2023-08-23 04:19] LABS: Barbiturate Screen,Urine Not Detected (NotDetected); Benzodiazepines Screen,Urine Detected (NotDetected); Methadone Screen, Urine Not Detected (NotDetected); Oxycodone Screen, Urine Not Detected (NotDetected); Tricyclic Antidepressant,Urine Not Detected (NotDetected)
[2023-08-23] MEDS ORDERED: LEVOTHYROXINE 75 MCG TAB PO SCH (06:30)
[2023-08-23] MEDS ORDERED: cloNIDine HCL 0.1 MG TAB PO SCH (09:00)
[2023-08-23] MEDS ORDERED: ENOXAPARIN 40 MG/0.4 ML SYRINGE SQ SCH (09:00)
--- NOTE | 2023-08-23 16:21 | P.DS ---
Providers Date of admission: 08/23/23 03:45 Expected date of discharge: 08/23/23 Attending physician: Deb Moe MD Primary care physician: [facility] Hospital Course: Discharge Diagnosis: Acute alcohol intoxication hypothyroidism Transaminitis Hospital Course: 62-year-old female with history of alcohol dependence and hypothyroidism presenting with alcohol intoxication. Vital signs have been within normal limits. Laboratory analysis shows anion gap metabolic acidosis, slightly elevated AST and ALT, normal total bilirubin, serum alcohol of 364. Patient was monitored in the ER until clinically sober. She has been in rehab multiple times for alcoholism. She is currently waiting for housing, and will likely be able to stay sober after that. She should be able to get housing within 1 week. Patient seen and examined at bedside. Vital signs reviewed and stable. General: nontoxic, no distress, appears at stated age Derm: warm, dry Head: atraumatic, normocephalic, [symmetri] Eyes:[EOM],[no lid la],[anicteric scler] Mouth:[no lip lesio],[mucus membranes mois] Cardiovascular:[S1S2 re],[no murmu] Lungs:[CTA bilatera],[no rhonchi, no rale] ,[no accessory muscle us] Abdominal:[sof],[ nontender to palpatio],[no guardin],[no appreciable organomegal] Ext:[no gross muscle atroph],[no geovanna],[no contracture] Neuro:[ CN II-XI grossly intac],[no focal neuro deficit] Psych:[Aler],[oriente],[appropriate affec] A total of 33 minutes of time were spent preparing this complex discharge summary. Patient was discharged on 08/23/23 at 1700. Patient Condition at Discharge: Stable Plan - Discharge Summary New Discharge Prescriptions: New Thiamine [Vitamin B-1] 100 mg PO DAILY #90 tab Continue Escitalopram [Lexapro] 20 mg PO DAILY Acetaminophen Tab [Tylenol] 650 mg PO Q6HR PRN tab PRN Reason: Mild Pain Or Fever > 100.5 Ondansetron Odt [Zofran ODT] 4 mg PO Q8HR PRN #10 tab PRN Reason: Nausea Acamprosate Calcium [Campral] 666 mg PO TID 30 Days #90 tab Albuterol Inhaler [Ventolin Hfa Inhaler] 2 puff INHALATION RT-Q6H PRN #1 each PRN Reason: Shortness Of Breath Nitroglycerin Sl Tabs [Nitrostat] 0.4 mg SL Q5M PRN PRN Reason: Chest Pain ARIPiprazole [Abilify] 5 mg PO DAILY Levothyroxine Sodium [Synthroid] 150 mcg PO DAILY Fexofenadine HCl [Debbi Allergy] 180 mg PO DAILY Triamcinolone 0.1% Cream [Kenalog 0.1% Cream] 1 applic TOPICAL BID PRN PRN Reason: psoriasis Discontinued traZODone HCL 100 mg PO HS Discharge Medication List Albuterol Inhaler [Ventolin Hfa Inhaler] 2 puff INHALATION RT-Q6H PRN #1 each 01/20/23 [Rx] Escitalopram [Lexapro] 20 mg PO DAILY 05/18/23 [History] Nitroglycerin Sl Tabs [Nitrostat] 0.4 mg SL Q5M PRN 05/18/23 [History] ARIPiprazole [Abilify] 5 mg PO DAILY 07/09/23 [History] Levothyroxine Sodium [Synthroid] 150 mcg PO DAILY 07/09/23 [History] Acetaminophen Tab [Tylenol] 650 mg PO Q6HR PRN tab 07/19/23 [Rx] Ondansetron Odt [Zofran ODT] 4 mg PO Q8HR PRN #10 tab 08/04/23 [Rx] Fexofenadine HCl [Debbi Allergy] 180 mg PO DAILY 08/14/23 [History] Triamcinolone 0.1% Cream [Kenalog 0.1% Cream] 1 applic TOPICAL BID PRN 08/15/23 [History] Acamprosate Calcium [Campral] 666 mg PO TID 30 Days #90 tab 08/16/23 [Rx] Thiamine [Vitamin B-1] 100 mg PO DAILY #90 tab 08/23/23 [Rx] Follow up Appointment(s)/Referral(s): [facility] [Primary Care Provider] - 1-2 days Patient Instructions/Handouts: Alcohol Dependence (DC), Alcohol Use Disorder (DC) Activity/Diet/Wound Care/Special Instructions: Please see your PCP. Discharge Disposition: HOME SELF-CARE
[2023-08-23 17:50] VITALS: BP 149/89; PULSE 76; RESP 18; TEMP 98.6
[2023-08-24] MEDS ORDERED: THIAMINE 100 MG TAB PO SCH (09:00)
== END 2023-08-23 17:38 | disposition home or self-care (01) ==
LOC: EC 00:46 → 6NMEDSUR 03:45
PROVIDERS: ADMIT Internal Medicine; ATTEND Internal Medicine
DX: F10.229 Alcohol dependence with intoxication, unspecified (principal); J45.909 Unspecified asthma, uncomplicated; I10 Essential (primary) hypertension; E89.0 Postprocedural hypothyroidism; F31.9 Bipolar disorder, unspecified; F41.9 Anxiety disorder, unspecified; R74.01 Elevation of levels of liver transaminase levels; Z79.899 Other long term (current) drug therapy; Z79.890 Hormone replacement therapy; Z88.1 Allergy status to other antibiotic agents; Y90.8 Blood alcohol level of 240 mg/100 ml or more
CPT/HCPCS: 96361; 96372; 96374; 99285; 36415; 80053; 83690; 83735; 85025; 81003; 80306; G0378; G0480; J2060; J3411; J1650; 80320

== ENCOUNTER 2023-08-28 01:14 | Observation (INO) | payer OTHER ==
[2023-08-28] MEDS ORDERED: LORazepam 2 MG/ML INJ IV PRN (01:36)
[2023-08-28] MEDS ORDERED: THIAMINE 100 MG/ML 2 ML VIAL IM STA (01:36)
[2023-08-28] MEDS: LORazepam 2 MG/ML INJ IV PRN ×3 (02:00→21:57)
[2023-08-28 02:03] LABS: ALT 77 U/L (4-34); AST 74 U/L (14-36); African American GFR (CKD) >90 (>60 ml/min/1.73 sqM); Albumin 4.5 g/dL (3.5-5.0); Alcohol 11 mg/dL; Alkaline Phosphatase 47 U/L (38-126); Anion Gap 19 mmol/L; Blood Urea Nitrogen 13 mg/dL (7-17); Calcium 9.2 mg/dL (8.4-10.2); Carbon Dioxide 18 mmol/L (22-30); Chloride 102 mmol/L (98-107); Glucose 89 mg/dL (74-99); Magnesium 1.4 mg/dL (1.6-2.3); Non-African American GFR(CKD) >90 (>60 ml/min/1.73 sqM); Potassium 3.8 mmol/L (3.5-5.1); Sodium 139 mmol/L (137-145); Total Bilirubin 0.9 mg/dL (0.2-1.3); Total Protein 7.4 g/dL (6.3-8.2)
[2023-08-28 02:15] LABS: Basophils % (A) 0 %; Eosinophils % (A) 1 %; HCT 40.9 % (34.0-46.0); HGB 13.7 gm/dL (11.4-16.0); Lymphocytes # (A) 0.6 k/uL (1.0-4.8); Lymphocytes % (A) 13 %; MCH 32.4 pg (25.0-35.0); MCHC 33.5 g/dL (31.0-37.0); MCV 96.8 fL (80.0-100.0); Mean Platelet Volume 8.5; Monocytes # (A) 0.3 k/uL (0-1.0); Monocytes % (A) 7 %; Neutrophils # (A) 3.7 k/uL (1.3-7.7); Neutrophils % (A) 77 %; Platelet Count 193 k/uL (150-450); RBC 4.22 m/uL (3.80-5.40); RDW 15.1 % (11.5-15.5); WBC 4.7 k/uL (3.8-10.6)
--- NOTE | 2023-08-28 02:47 | ED ---
Alcohol HPI - General Chief Complaint: Alcohol Stated Complaint: ETOH WITHDRAWAL Time Seen by Provider: 08/28/23 01:20 Source: patient Mode of arrival: EMS Limitations: no limitations - History of Present Illness Initial Comments: 62-year-old female with past history of alcohol abuse who presents to the emergency department reporting a call withdrawal. Patient was just recently hospitalized for alcohol intoxication. She was discharged home and states that she has been attempting to wean herself off alcohol however it hasn't been working. Her last drink was yesterday morning. She states that she is significantly shaky and nauseated. She has been through rehab multiple times. States that she is awaiting placement at [facility] and feels that sober living is going to be larios in getting her to stop. She denies any suicidal or homicidal ideations. No other alleviating, precipitating or modifying factors - Related Data Home Medications Medication Instructions Recorded Confirmed Escitalopram [Lexapro] 20 mg PO DAILY 05/18/23 08/28/23 Nitroglycerin Sl Tabs [Nitrostat] 0.4 mg SL Q5M PRN 05/18/23 08/28/23 ARIPiprazole [Abilify] 5 mg PO DAILY 07/09/23 08/28/23 Levothyroxine Sodium [Synthroid] 150 mcg PO DAILY 07/09/23 08/28/23 Fexofenadine HCl [Debbi Allergy] 180 mg PO DAILY 08/14/23 08/28/23 Triamcinolone 0.1% Cream [Kenalog 1 applic TOPICAL BID PRN 08/15/23 08/28/23 0.1% Cream] Previous Rx's Medication Instructions Recorded Albuterol Inhaler [Ventolin Hfa 2 puff INHALATION RT-Q6H PRN #1 01/20/23 Inhaler] each Acetaminophen Tab [Tylenol] 650 mg PO Q6HR PRN tab 07/19/23 Ondansetron Odt [Zofran ODT] 4 mg PO Q8HR PRN #10 tab 08/04/23 Acamprosate Calcium [Campral] 666 mg PO TID 30 Days #90 tab 08/16/23 Thiamine [Vitamin B-1] 100 mg PO DAILY #90 tab 08/23/23 Allergies Allergy/AdvReac Type Severity Reaction Status Date / Time clindamycin Allergy Unknown Rash/Hives Verified 10/22/23 10:55 acetylcysteine AdvReac Anaphylaxis Verified 08/28/23 10:55 [From Mucomyst] citalopram [From Celexa] AdvReac Hallucinati Verified 08/28/23 10:55 ons diphenhydramine HCl AdvReac Rapid Verified 08/28/23 10:55 [From Benadryl] Heart Rate Review of Systems ROS Statement: Those systems with pertinent positive or pertinent negative responses have been documented in the HPI. ROS Other: All systems not noted in ROS Statement are negative. Past Medical History Past Medical History: Asthma, Cancer, Hypertension, Thyroid Disorder Additional Past Medical History / Comment(s): History of goiter status post thyroidectomy, questionable history of thyroid cancer although this is not clear, bipolar disorder, depression, history of suicidal ideations, history of drug overdose, alcoholism, seasonal rhinitis, psoriasis, breast cysts, history of broken toes in the right foot, hypertension, History of Any Multi-Drug Resistant Organisms: None Reported Past Surgical History: No Surgical Hx Reported Additional Past Surgical History / Comment(s): Thyroidectomy 1999, SKIN NEVI REMOVED Past Anesthesia/Blood Transfusion Reactions: Previous Problems w/ Anesthesia, Postoperative Nausea & Vomiting (PONV) Additional Past Anesthesia/Blood Transfusion Reaction / Comment(s): Lives in a house with two roommates. ETOH. Pt no longer has a drivers license- she has had 2 DUI's. 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 She is seen at [facility]. Past Psychological History: Anxiety, Bipolar, Depression Smoking Status: Never smoker Past Alcohol Use History: Abuse Past Drug Use History: None Reported - Past Family History Father Family Medical History: Cancer Additional Family Medical History / Comment(s): Father at age 64 of esophageal cancer. Father was an alcoholic and had cirrhosis of the liver. Mother Family Medical History: Cancer Additional Family Medical History / Comment(s): Mother of breast cancer at age 42yrs. General Exam Limitations: no limitations General appearance: alert, in no apparent distress, anxious, other (Tremulous) Head exam: Present: atraumatic, normocephalic, normal inspection Eye exam: Present: normal appearance, PERRL, EOMI. Absent: scleral icterus, conjunctival injection, periorbital swelling ENT exam: Present: normal exam, mucous membranes moist Neck exam: Present: normal inspection. Absent: tenderness, meningismus, lymphadenopathy Respiratory exam: Present: normal lung sounds bilaterally. Absent: respiratory distress, wheezes, rales, rhonchi, stridor Cardiovascular Exam: Present: regular rate, normal rhythm, normal heart sounds. Absent: systolic murmur, diastolic murmur, rubs, gallop, clicks GI/Abdominal exam: Present: soft, normal bowel sounds. Absent: distended, tende rness, guarding, rebound, rigid Extremities exam: Present: normal inspection, full ROM, normal capillary refill. Absent: tenderness, pedal edema, joint swelling, calf tenderness Back exam: Present: normal inspection Neurological exam: Present: alert, oriented X3, CN II-XII intact Psychiatric exam: Present: normal affect, normal mood Skin exam: Present: warm, dry, intact, normal color. Absent: rash Course Vital Signs 08/28/23 08/28/23 08/28/23 01:19 03:07 04:00 Temperature 98.4 F Pulse Rate 88 75 68 Respiratory 18 18 16 Rate Blood Pressure 153/94 133/99 137/92 O2 Sat by Pulse 96 92 L 92 L Oximetry 08/28/23 08/28/23 08/28/23 07:55 11:17 12:00 Temperature 98.3 F 98.4 F Pulse Rate 81 74 87 Respiratory 16 20 18 Rate Blood Pressure 154/98 162/103 142/98 O2 Sat by Pulse 95 93 L 94 L Oximetry 08/28/23 16:00 Temperature 98.8 F Pulse Rate 67 Respiratory 16 Rate Blood Pressure 137/94 O2 Sat by Pulse 92 L Oximetry Medical Decision Making - Medical Decision Making Was pt. sent in by a medical professional or institution (, PA, 3RD GRADE TEACHER, urgent care, hospital, or long-term...) When possible be specific @ -No Did you speak to anyone other than the patient for history (EMS, parent, family, police, friend...)? What history was obtained from this source @ -I spoke with EMS Did you review nursing and triage notes (agree or disagree)? Why? @ -I reviewed and agree with nursing and triage notes Were old charts reviewed (outside hosp., previous admission, EMS record, old EKG, old radiological studies, urgent care reports/EKG's, long-term records)? Report findings @ -I reviewed old charts. Patient was just recently admitted for alcohol intoxication Differential Diagnosis (chest pain, altered mental status, abdominal pain women, abdominal pain men, vaginal bleeding, weakness, fever, dyspnea, syncope, headache, dizziness, GI bleed, back pain, seizure, CVA, palpatations, mental health, musculoskeletal)? @ -Alcohol intoxication, alcohol withdrawal, med seeking behavior, depression EKG interpreted by me (3pts min.). @ -Not completed X-rays interpreted by me (1pt min.). @ -None done CT interpreted by me (1pt min.). @ -None done U/S interpreted by me (1pt. min.). @ -None done What testing was considered but not performed or refused? (CT, X-rays, U/S, labs)? Why? @ -None What meds were considered but not given or refused? Why? @ -None Did you discuss the management of the patient with other professionals (professionals i.e. , PA, 3RD GRADE TEACHER, lab, RT, psych nurse, high school social science teacher, 3d artist, teacher, cavalry officer, bilingual patient support caseworker)? Give summary @ -Spoke with Dr. Dominique who agreed to admit patient Was smoking cessation discussed for >3mins.? @ -No Was critical care preformed (if so, how long)? @ -No Were there social determinants of health that impacted care today? How? (Homelessness, low income, unemployed, alcoholism, drug addiction, transportation, low edu. Level, literacy, decrease access to med. care, shelter, rehab)? @ -No Was there de-escalation of care discussed even if they declined (Discuss DNR or withdrawal of care, Hospice)? DNR status @ -No What co-morbidities impacted this encounter? (DM, HTN, Smoking, COPD, CAD, Cancer, CVA, ARF, Chemo, Hep., AIDS, mental health diagnosis, sleep apnea, morbid obesity)? @ -Alcohol abuse Was patient admitted / discharged? Hospital course, mention meds given and rout e, prescriptions, significant lab abnormalities, going to OR and other pertinent info. @ -Upon arrival patient is placed into room 12. Thorough history and physical exam was performed. Patient does have a CIWA of 17. She is given Ativan. Laboratory studies are conducted. Magnesium was low and will be replaced. I spoke with Dr. Dominique who agreed to admit patient Undiagnosed new problem with uncertain prognosis? @ -No Drug Therapy requiring intensive monitoring for toxicity (Heparin, Nitro, Insulin, Cardizem)? @ -No Were any procedures done? @ -No Diagnosis/symptom? @ -Acute alcohol withdrawal, history of alcohol abuse Acute, or Chronic, or Acute on Chronic? @ -Acute, recurrent Uncomplicated (without systemic symptoms) or Complicated (systemic symptoms)? @ -Complicated Side effects of treatment? @ -No Exacerbation, Progression, or Severe Exacerbation? @ -No Poses a threat to life or bodily function? How? (Chest pain, [place], [place], pneumonia, PE, COPD, DKA, ARF, appy, cholecystitis, CVA, Diverticulitis, Homicidal, Suicidal, threat to staff... and all critical care pts) @ -Yes, patient presents with what appears to be significant alcohol withdrawal - Lab Data Result diagrams: 08/28/23 01:43 08/28/23 01:43 Lab Results 08/28/23 08/28/23 Range/Units 01:43 01:43 WBC 4.7 (3.8-10.6) k/uL RBC 4.22 (3.80-5.40) m/uL Hgb 13.7 (11.4-16.0) gm/dL Hct 40.9 (34.0-46.0) % MCV 96.8 (80.0-100.0) fL MCH 32.4 (25.0-35.0) pg MCHC 33.5 (31.0-37.0) g/dL RDW 15.1 (11.5-15.5) % Plt Count 193 (150-450) k/uL MPV 8.5 Neutrophils % 77 % Lymphocytes % 13 % Monocytes % 7 % Eosinophils % 1 % Basophils % 0 % Neutrophils # 3.7 (1.3-7.7) k/uL Lymphocytes # 0.6 L (1.0-4.8) k/uL Monocytes # 0.3 (0-1.0) k/uL Eosinophils # 0.0 (0-0.7) k/uL Basophils # 0.0 (0-0.2) k/uL Sodium 139 (137-145) mmol/L Potassium 3.8 (3.5-5.1) mmol/L Chloride 102 (98-107) mmol/L Carbon Dioxide 18 L (22-30) mmol/L Anion Gap 19 mmol/L BUN 13 (7-17) mg/dL Creatinine 0.52 (0.52-1.04) mg/dL Est GFR (CKD-EPI)AfAm >90 (>60 ml/min/1.73 sqM) Est GFR (CKD-EPI)NonAf >90 (>60 ml/min/1.73 sqM) Glucose 89 (74-99) mg/dL Calcium 9.2 (8.4-10.2) mg/dL Magnesium 1.4 L (1.6-2.3) mg/dL Total Bilirubin 0.9 (0.2-1.3) mg/dL AST 74 H (14-36) U/L ALT 77 H (4-34) U/L Alkaline Phosphatase 47 (38-126) U/L Total Protein 7.4 (6.3-8.2) g/dL Albumin 4.5 (3.5-5.0) g/dL Serum Alcohol 11 mg/dL Disposition Clinical Impression: Alcohol withdrawal Disposition: ADMITTED IP TO THIS HOSP Condition: Stable Is patient prescribed a controlled substance at d/c from ED?: No Time of Disposition: 02:47 Decision to Admit Reason: Admit from EC Decision Date: 08/28/23 Decision Time: 02:47
[2023-08-28] MEDS ORDERED: NALOXONE 0.4 MG/ML 1 ML VIAL IV PRN (02:48)
[2023-08-28] MEDS: MAGNESIUM SULFATE-D5W PMX 1 GM in DEXTROSE/WATER 1 100ML.BAG IVPB SCH ×2 (03:09→03:52)
--- NOTE | 2023-08-28 03:44 | P.HPIM ---
History of Present Illness H&P Date: 08/28/23 Patient is a 62-year-old female with a PMH of alcohol abuse, hypothyroidism status post thyroidectomy, and bipolar disorder who presents to the emergency room with complaints of alcohol withdrawal. Patient reports that she has been drinking 1-1-1/2 pints of hard liquor daily for the past several years and that she is currently trying to quit. She reports being in a wait list for the [facility] [address]. States that her last drink was roughly 48 hours ago and that she is trying to get clean. She reported feeling shaky at the time of interview but denied any additional complaints. Denied experiencing chest discomfort, shortness of breath, fever, chills, cough. Denied abdominal pain or diarrhea. In the emergency room, laboratory evaluation was remarkable for magnesium 1.4, A ST 74, ALT 70, and serum alcohol level of 11. ED documentation reviewed and case discussed with ED provider. Review of systems: Pertinent positives and negatives as discussed in HPI, a complete review of systems was performed and all other systems are negative. Physical examination: Vital signs reviewed General: non toxic, no distress, appears at stated age, normal weight, tremulous Derm: no unusual rashes/lesions, warm Head: atraumatic, normocephalic, symmetric Eyes: EOMI, no lid lag, anicteric sclera, pupils equal round reactive to light ENT: Nose and ears atraumatic Neck: No cervical lymphadenopathy, trachea midline, supple Mouth: no lip lesion, mucus membranes moist Cardiovascular: S1S2 reg, no murmur, positive dorsalis pedis pulse bilateral, no edema Lungs: CTA bilateral, no rhonchi, no rales, no accessory muscle use Abdominal: soft, nontender to palpation, no guarding Ext: muscle strength 5 out of 5 in all 4 extremities grossly, no gross muscle atrophy, no contractures, Neuro: CN II-XI grossly intact, no gross focal neuro deficits, outstretched hand tremor and tongue fasciculations noted Psych: Alert, oriented, appropriate affect Assessment: Alcohol withdrawal Hypomagnesemia Abnormal LFTs Chronic conditions: Hypothyroidism, bipolar disorder Imaging: None performed Data Review: In the emergency room, laboratory evaluation was remarkable for magnesium 1.4, AST 74, ALT 70, and serum alcohol level of 11. Plan: CIWA protocol with Ativan C/w Thiamine IVFs with NS 75 ml/hr Fall, seizure, aspiration risk Cardiac monitoring Monitor electrolytes Replace magnesium and monitor DVT prophylaxis: Lovenox Subq The patient is admitted with an anticipated less than 2 midnight stay for evalua tion of EtOH withdrawal CODE STATUS: Full Code Discussed with: Patient Anticipated discharge place: Home Past Medical History Past Medical History: Asthma, Cancer, Hypertension, Thyroid Disorder Additional Past Medical History / Comment(s): History of goiter status post thyroidectomy, questionable history of thyroid cancer although this is not clear, bipolar disorder, depression, history of suicidal ideations, history of drug overdose, alcoholism, seasonal rhinitis, psoriasis, breast cysts, history of broken toes in the right foot, hypertension, History of Any Multi-Drug Resistant Organisms: None Reported Past Surgical History: No Surgical Hx Reported Additional Past Surgical History / Comment(s): Thyroidectomy 1999, SKIN NEVI REMOVED Past Anesthesia/Blood Transfusion Reactions: Previous Problems w/ Anesthesia, Postoperative Nausea & Vomiting (PONV) Additional Past Anesthesia/Blood Transfusion Reaction / Comment(s): Lives in a house with two roommates. ETOH. Pt no longer has a drivers license- she has had 2 DUI's. 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 She is seen at [facility]. Past Psychological History: Anxiety, Bipolar, Depression Smoking Status: Never smoker Past Alcohol Use History: Abuse Past Drug Use History: None Reported - Past Family History Father Family Medical History: Cancer Additional Family Medical History / Comment(s): Father at age 64 of esophageal cancer. Father was an alcoholic and had cirrhosis of the liver. Mother Family Medical History: Cancer Additional Family Medical History / Comment(s): Mother of breast cancer at age 42yrs. Medications and Allergies Home Medications Medication Instructions Recorded Confirmed Type Albuterol Inhaler [Ventolin Hfa 2 puff INHALATION RT-Q6H PRN #1 01/20/23 08/23/23 Rx Inhaler] each Escitalopram [Lexapro] 20 mg PO DAILY 05/18/23 08/23/23 History Nitroglycerin Sl Tabs [Nitrostat] 0.4 mg SL Q5M PRN 05/18/23 08/23/23 History ARIPiprazole [Abilify] 5 mg PO DAILY 07/09/23 08/23/23 History Levothyroxine Sodium [Synthroid] 150 mcg PO DAILY 07/09/23 08/23/23 History Acetaminophen Tab [Tylenol] 650 mg PO Q6HR PRN tab 07/19/23 08/23/23 Rx Ondansetron Odt [Zofran ODT] 4 mg PO Q8HR PRN #10 tab 08/04/23 08/23/23 Rx Fexofenadine HCl [Debbi Allergy] 180 mg PO DAILY 08/14/23 08/23/23 History Triamcinolone 0.1% Cream [Kenalog 1 applic TOPICAL BID PRN 08/15/23 08/23/23 History 0.1% Cream] Acamprosate Calcium [Campral] 666 mg PO TID 30 Days #90 tab 08/16/23 08/23/23 Rx Thiamine [Vitamin B-1] 100 mg PO DAILY #90 tab 08/23/23 Rx Allergies Allergy/AdvReac Type Severity Reaction Status Date / Time clindamycin Allergy Unknown Rash/Hives Verified 08/23/23 00:52 acetylcysteine AdvReac Anaphylaxis Verified 08/23/23 00:52 [From Mucomyst] citalopram [From Celexa] AdvReac Hallucinati Verified 08/23/23 00:52 ons diphenhydramine HCl AdvReac Rapid Verified 08/23/23 00:52 [From Benadryl] Heart Rate Physical Exam Vitals: Vital Signs Temp Pulse Resp BP Pulse Ox 08/28/23 03:07 75 18 133/99 92 L 08/28/23 01:19 98.4 F 88 18 153/94 96 Intake and Output 08/27/23 08/27/23 08/28/23 14:59 22:59 06:59 Other: Weight 77.111 kg Results CBC & Chem 7: 08/28/23 01:43 08/28/23 01:43 Labs: Abnormal Lab Results - Last 24 Hours (Table) 08/28/23 08/28/23 Range/Units 01:43 01:43 Lymphocytes # 0.6 L (1.0-4.8) k/uL Carbon Dioxide 18 L (22-30) mmol/L Magnesium 1.4 L (1.6-2.3) mg/dL AST 74 H (14-36) U/L ALT 77 H (4-34) U/L
[2023-08-28] MEDS: SODIUM CHLORIDE 0.9% 1,000 ML IV SCH ×2 (03:54→21:48)
[2023-08-28] MEDS: ONDANSETRON 4 MG/2 ML VIAL IVP PRN ×2 (08:17→16:16)
[2023-08-28] MEDS: ENOXAPARIN 40 MG/0.4 ML SYRINGE SQ SCH (08:19)
[2023-08-28] MEDS: LEVOTHYROXINE 75 MCG TAB PO SCH (10:45)
[2023-08-28] MEDS: ARIPiprazole 5 MG TAB PO SCH (10:45)
[2023-08-28] MEDS: ESCITALOPRAM 20 MG TAB PO SCH (10:45)
--- NOTE | 2023-08-28 18:44 | P.PN ---
Subjective Progress Note Date: 08/28/23 Hospital course: Patient is a very pleasant 62-year-old female with a past medical history of EtOH abuse, hypothyroidism status post thyroidectomy, and bipolar disorder. She presented to the emergency department overnight with a chief complaint of alcohol withdrawal. Patient is very well-known to our services with frequent admissions for alcohol withdrawal. Patient reports she is currently on the waiting list for [facility] and that her last drink was approximately 48 hours prior to arrival. She underwent full evaluation in the emergency department. Labs were completed and reviewed. CBC and BMP were unremarkable with the exception of hypocarbia with bicarb of 18. Magnesium is low at 1.4 and replaced in the emergency department. Liver enzymes elevated with AST of 74 and ALT of 77. Patient was admitted under our services for medically controlled detox. Physical exam: Vital signs reviewed and stable. General: Nontoxic, no distress and appears stated age. Derm: Skin warm and dry, normal coloration for ethnicity. Head: Atraumatic, normocephalic and symmetric. Eyes: EOMs intact, no lid lag, and anicteric sclera Mouth: no lip lesions, mucus membranes moist Cardiovascular: regular rate and rhythm with normal S1S2, no murmur, positive posterior tibial pulses bilaterally, and cap refill < 2 seconds. Lungs: Respirations even, regular, and unlabored on room air. Lungs CTA bilaterally, no rhonchi, no rales, no wheezing, and no accessory muscle usage. Abdominal: soft, nontender to palpation, no guarding, no appreciable organomegaly Ext: ROM intact. No gross muscle atrophy, no edema, no contractures Neuro: Speech clear, face symmetrical and CN II-XII grossly intact with no noted focal neuro deficits Psych: Alert and oriented to person, place, time, and situation. Appropriate and pleasant affect. Assessment and Plan of Care: Alcohol withdrawal with DTs Hypomagnesemia secondary to daily alcohol abuse History of alcohol withdrawal seizures and DTs -Continue monitoring of CIWA scores and patient to be medicated with Ativan 0.5 mg every 4 hours as needed for CIWA score of 4-5, Ativan 1 mg every 4 hours for CIWA score of 6-7, Ativan 2 mg every 3 hours CIWA score of 8-9, and Ativan 2 mg every 2 hours forr CIWA score of 10 or greater. -Continuous IV hydration with 0.9% normal saline at 75 mL's per hour. -Thiamine 100 mg twice a day -Multivitamin daily -Folate 1 mg daily -Seizure, fall, aspiration, and elopement precautions to continue. -Urine drug screen positive for benzodiazepines -Continued close monitoring of electrolytes and replace as needed -Telemetry monitoring. -Continue daily medication regimen with Campral 666 mg 3 times daily. Hypothyroidism status post thyroidectomy -Continue daily medication regimen with the levothyroxine 150 g daily. Bipolar disorder -Continue daily medication regimen with Lexapro 20 mg daily and Abilify 5 mg daily CODE STATUS: Full code DVT prophylaxis: Lovenox Discussed with: Patient and RN Anticipated discharge date: Clinical course to determine Anticipated discharge place: Home Patient was seen independently by Nurse Pracitioner. This document was prepared using [employer] dictation software. Please allow for errors in computer systems software engineer, while rare they do occur. Vahid Ernandez NP rendered care for this patient independently, reviewed the findings and plan as documented in the note above. I did not physically speak with or examine the patient on this date. Objective - Vital Signs Vital signs: Vital Signs Temp 98.3 F 08/28/23 07:55 Pulse 81 08/28/23 07:55 Resp 16 08/28/23 07:55 BP 154/98 08/28/23 07:55 Pulse Ox 95 08/28/23 07:55 FiO2 Intake & Output 08/27/23 08/28/23 08/28/23 18:59 06:59 18:59 Weight 77.111 kg - Labs CBC & Chem 7: 08/28/23 01:43 08/28/23 01:43 Labs: Abnormal Lab Results - Last 24 Hours (Table) 08/28/23 08/28/23 Range/Units 01:43 01:43 Lymphocytes # 0.6 L (1.0-4.8) k/uL Carbon Dioxide 18 L (22-30) mmol/L Magnesium 1.4 L (1.6-2.3) mg/dL AST 74 H (14-36) U/L ALT 77 H (4-34) U/L
[2023-08-28] MEDS: ACAMPROSATE CALCIUM 333 MG TABLET.DR PO SCH (21:48)
[2023-08-29] MEDS ORDERED: IBUPROFEN 200 MG TAB PO PRN (03:59)
[2023-08-29] MEDS: SODIUM CHLORIDE 0.9% 1,000 ML IV SCH (06:09)
[2023-08-29] MEDS: LEVOTHYROXINE 75 MCG TAB PO SCH (06:09)
[2023-08-29 08:52] LABS: Basophils # (A) 0.03 X 10*3/uL (0.00-0.10); Basophils % (A) 0.8 %; Eosinophils # (A) 0.11 X 10*3/uL (0.04-0.35); Eosinophils % (A) 2.9 %; HCT 41.8 % (37.2-46.3); HGB 13.7 d/dL (12.0-15.0); Lymphocytes # (A) 0.66 X 10*3/uL (0.90-5.00); Lymphocytes % (A) 17.3 %; MCH 32.2 pg (27.0-32.0); MCHC 32.8 d/dL (32.0-37.0); MCV 98.4 FL (80.0-97.0); Mean Platelet Volume 11.2 FL (9.5-12.2); Monocytes # (A) 0.32 X 10*3/uL (0.20-1.00); Monocytes % (A) 8.4 %; NRBC Per 100 WBC 0 X 10*3/uL (0.00-0.01); Neutrophils # (A) 2.68 X 10*3/uL (1.80-7.70); Neutrophils % (A) 70.1 %; Platelet Count 179 X 10*3/uL (140-440); RBC 4.25 X 10*6/uL (4.10-5.20); RDW 15.7 % (11.5-14.5); WBC 3.82 X 10*3/uL (4.50-10.00)
[2023-08-29 09:03] LABS: BUN/Creat Ratio 11.57 Ratio (12.00-20.00); Blood Urea Nitrogen 8.1 mg/dL (9.0-27.0); Calcium 9.1 mg/dL (8.7-10.3); Carbon Dioxide 26.6 mmol/L (21.6-31.8); Chloride 101 mmol/L (96-109); Glucose 100 mg/dL (70-110); Magnesium 2.2 mg/dL (1.5-2.4); Potassium 3.9 mmol/L (3.5-5.5); Sodium 137 mmol/L (135-145)
[2023-08-29] MEDS: ACAMPROSATE CALCIUM 333 MG TABLET.DR PO SCH ×3 (09:27→20:38)
[2023-08-29] MEDS: THIAMINE 100 MG TAB PO SCH (09:27)
[2023-08-29] MEDS: FOLIC ACID 1 MG TAB PO SCH (09:27)
[2023-08-29] MEDS: MULTIVITAMINS, THERA 1 EACH TAB PO SCH (09:27)
[2023-08-29] MEDS: ENOXAPARIN 40 MG/0.4 ML SYRINGE SQ SCH (09:27)
[2023-08-29] MEDS: LORazepam 2 MG/ML INJ IV PRN ×2 (10:16→12:59)
[2023-08-29] MEDS: ESCITALOPRAM 20 MG TAB PO SCH (11:26)
[2023-08-29] MEDS: ARIPiprazole 5 MG TAB PO SCH (11:26)
[2023-08-29 12:03] VITALS: RESP 18
--- NOTE | 2023-08-29 18:57 | P.PN ---
Subjective Progress Note Date: 08/29/23 (delayed charting seen at 0915) Patient is a 62-year-old female with on going ETOH dependency, hypothyroidism status post thyroidectomy, and bipolar disorder who presented to the emergency department due to alcohol withdrawal. Her last drink was approximately 48 hours prior to arrival. In the emergency department she underwent an extensive evaluation. Labs were remarkable for bicarb of 18. Magnesium is low at 1.4, AST of 74, and ALT of 77. Patient was admitted for alcohol withdrawal. She was started on CIWA protocol. Patient seen and examined at bedside. She is feeling better than admission. She is still having some withdrawal symptoms such as anxiety, tremors, nausea, and headache. Her plan is to [facility] after discharge. Vital signs reviewed General: nontoxic, no distress, appears at stated age Cardiovascular: S1S2 reg, no murmur, positive posterior tibial pulse bilateral, Lungs: CTA bilateral, no rhonchi, no rales , no accessory muscle use Abdominal: soft, nontender to palpation, no guarding, no appreciable organomegaly Ext: no gross muscle atrophy, no edema b/l lower extremities, no contractures Neuro: CN II-XI grossly intact, no focal neuro deficits, mild tremor Psych: Alert, oriented, appropriate affect Assessment/Plan: Acute alcohol withdrawal Hypomagnesemia - Start Librium 20 mg 3 times daily -Continue monitoring of CIWA scores: Ativan 0.5 mg every 4 hours as needed for CIWA score of 4-5, Ativan 1 mg every 4 hours for CIWA score of 6-7, Ativan 2 mg every 3 hours CIWA score of 8-9, and Ativan 2 mg every 2 hours forr CIWA score of 10 or greater. -Thiamine 100 mg twice a day -Multivitamin daily -Folate 1 mg daily - Campral 666 mg 3 times daily. -Discontinue IV fluids Hypothyroidism status post thyroidectomy -Levothyroxine 150 g daily. Bipolar disorder -Lexapro 20 mg daily and Abilify 5 mg daily Imaging: None Data Review: Labs reviewed from today include CBC and basic metabolic profile which were unre markable. DVT prophylaxis: Lovenox Anticipated discharge date: Pending Clinical Course Anticipated discharge place: Pending Clinical Course This dictation was prepared using [employer] voice recognition software. Though every attempt is made to correct errors during dictation some may still exist. Objective - Vital Signs Vital signs: Vital Signs Temp 98.0 F 08/29/23 11:21 Pulse 76 08/29/23 11:21 Resp 18 08/29/23 11:21 BP 157/85 08/29/23 18:33 Pulse Ox 93 L 08/29/23 11:21 FiO2 Intake & Output 08/28/23 08/29/23 08/29/23 18:59 06:59 18:59 Intake Total 400 Balance 400 Weight 77.111 kg Intake: Oral 400 Other: Voiding Method Toilet # Voids 1 2 5 - Labs CBC & Chem 7: 08/29/23 05:16 08/29/23 05:16 Labs: Abnormal Lab Results - Last 24 Hours (Table) 08/29/23 08/29/23 Range/Units 05:16 05:16 WBC 3.82 L (4.50-10.00) X 10*3/uL MCV 98.4 H (80.0-97.0) FL MCH 32.2 H (27.0-32.0) pg RDW 15.7 H (11.5-14.5) % Lymphocytes # 0.66 L (0.90-5.00) X 10*3/uL BUN 8.1 L (9.0-27.0) mg/dL BUN/Creatinine Ratio 11.57 L (12.00-20.00) Ratio
[2023-08-30] MEDS: LEVOTHYROXINE 75 MCG TAB PO SCH (06:34)
[2023-08-30] MEDS: THIAMINE 100 MG TAB PO SCH (07:44)
[2023-08-30] MEDS: ACAMPROSATE CALCIUM 333 MG TABLET.DR PO SCH (07:44)
[2023-08-30] MEDS: MULTIVITAMINS, THERA 1 EACH TAB PO SCH (07:44)
[2023-08-30] MEDS: ESCITALOPRAM 20 MG TAB PO SCH (07:44)
[2023-08-30] MEDS: ARIPiprazole 5 MG TAB PO SCH (07:44)
[2023-08-30] MEDS: FOLIC ACID 1 MG TAB PO SCH (07:45)
[2023-08-30] MEDS: ENOXAPARIN 40 MG/0.4 ML SYRINGE SQ SCH (07:45)
[2023-08-30] MEDS ORDERED: amLODIPine 2.5 MG TAB PO SCH (09:00)
[2023-08-30 11:57] VITALS: BP 157/97; PULSE 63; TEMP 98.3
--- NOTE | 2023-08-30 13:28 | P.DS ---
Providers Date of admission: 08/28/23 02:48 Attending physician: Judy Dominique MD Primary care physician: [facility] Course: Discharge Diagnosis: Acute alcohol withdrawal Transaminitis, likely related to alcohol Hypothyroidism status post thyroidectomy Bipolar disorder Hypomagnesemia Hospital Course: Patient is a 62-year-old female with on going ETOH dependency, hypothyroidism status post thyroidectomy, and bipolar disorder who presented to the emergency department due to alcohol withdrawal. Her last drink was approximately 48 hours prior to arrival. In the emergency department she underwent an extensive evaluation. Labs were remarkable for bicarb of 18. Magnesium is low at 1.4, AST of 74, and ALT of 77. Patient was admitted for alcohol withdrawal. She was started on CIWA protocol. Scheduled Librium was added. She continued to improve. Her symptoms were well-controlled and she was determined stable for discharge. She did have persistent hypertension necessitating the addition of Norvasc. Follow-up: She was prescribed a short librium taper on discharge. We had a mayank discussion that if she combines this medication with alcohol it will cause incre ased sedation that can lead to over dose including . She was given instructions to stop librium if she becomes sedated. She has an intake a scared heart on 08/08. She was started on norvasc for sustained HTN despite improved in withdrawal symptoms. Patient seen and examined at bedside.She is doping well, withdrawal symptoms well controlled. No complaints and wants to go home. Vital signs reviewed and stable. General: nontoxic, no distress, appears at stated age Cardiovascular: S1S2 reg, no murmur, positive posterior tibial pulse bilateral, Lungs: CTA bilateral, no rhonchi, no rales , no accessory muscle use Abdominal: soft, nontender to palpation, no guarding, no appreciable organomegaly Ext: no gross muscle atrophy, no edema b/l lower extremities, no contractures Neuro: CN II-XI grossly intact, no focal neuro deficits Psych: Alert, oriented, appropriate affect A total of 32 minutes of time were spent preparing this complex discharge summary. Patient was discharged on 08/30/23. This dictation was prepared using AnyLeaf voice recognition software. Though every attempt is made to correct errors during dictation some may still exist. Patient Condition at Discharge: Stable Plan - Discharge Summary New Discharge Prescriptions: New Folic Acid 1 mg PO DAILY #14 tab amLODIPine [Norvasc] 2.5 mg PO DAILY #30 tab chlordiazePOXIDE HCl [Librium] See Rx Instructions .ROUTE .COMPLEX #12 cap Continue Escitalopram [Lexapro] 20 mg PO DAILY Acetaminophen Tab [Tylenol] 650 mg PO Q6HR PRN tab PRN Reason: Mild Pain Or Fever > 100.5 Ondansetron Odt [Zofran ODT] 4 mg PO Q8HR PRN #10 tab PRN Reason: Nausea Acamprosate Calcium [Campral] 666 mg PO TID 30 Days #90 tab Thiamine [Vitamin B-1] 100 mg PO DAILY #90 tab Albuterol Inhaler [Ventolin Hfa Inhaler] 2 puff INHALATION RT-Q6H PRN #1 each PRN Reason: Shortness Of Breath Nitroglycerin Sl Tabs [Nitrostat] 0.4 mg SL Q5M PRN PRN Reason: Chest Pain ARIPiprazole [Abilify] 5 mg PO DAILY Levothyroxine Sodium [Synthroid] 150 mcg PO DAILY Fexofenadine HCl [Debbi Allergy] 180 mg PO DAILY Triamcinolone 0.1% Cream [Kenalog 0.1% Cream] 1 applic TOPICAL BID PRN PRN Reason: psoriasis Discharge Medication List Albuterol Inhaler [Ventolin Hfa Inhaler] 2 puff INHALATION RT-Q6H PRN #1 each 01/20/23 [Rx] Escitalopram [Lexapro] 20 mg PO DAILY 05/18/23 [History] Nitroglycerin Sl Tabs [Nitrostat] 0.4 mg SL Q5M PRN 05/18/23 [History] ARIPiprazole [Abilify] 5 mg PO DAILY 07/09/23 [History] Levothyroxine Sodium [Synthroid] 150 mcg PO DAILY 07/09/23 [History] Acetaminophen Tab [Tylenol] 650 mg PO Q6HR PRN tab 07/19/23 [Rx] Ondansetron Odt [Zofran ODT] 4 mg PO Q8HR PRN #10 tab 08/04/23 [Rx] Fexofenadine HCl [Debbi Allergy] 180 mg PO DAILY 08/14/23 [History] Triamcinolone 0.1% Cream [Kenalog 0.1% Cream] 1 applic TOPICAL BID PRN 08/15/23 [History] Acamprosate Calcium [Campral] 666 mg PO TID 30 Days #90 tab 08/16/23 [Rx] Thiamine [Vitamin B-1] 100 mg PO DAILY #90 tab 08/23/23 [Rx] Folic Acid 1 mg PO DAILY #14 tab 08/30/23 [Rx] amLODIPine [Norvasc] 2.5 mg PO DAILY #30 tab 08/30/23 [Rx] chlordiazePOXIDE HCl [Librium] See Rx Instructions .ROUTE .COMPLEX #12 cap 08/30/23 [Rx] Follow up Appointment(s)/Referral(s): [facility] [Primary Care Provider] - 1-2 days (please call the office to schedule a follow up appointment) Patient Instructions/Handouts: Chlordiazepoxide (By mouth), Folic Acid (By mouth), Amlodipine (By mouth) Activity/Diet/Wound Care/Special Instructions: Activity: As tolerated Diet: Heart Healthy Special Instructions: Abstain from alcohol Do not combine chlordiazepoxide with alcohol as this can lead to overdose including depression of your breathing and . We have had a prolonged discussion regarding the risks and benefits of the medication prior to being prescribed for you. Thank you for trusting us with your care. We wish you well on your journey to better health. [facility] [place] [facility] [place]! Discharge Disposition: HOME SELF-CARE
== END 2023-08-30 14:21 | disposition home or self-care (01) ==
LOC: EC 01:14 → 5NMEDONC 02:48
PROVIDERS: ADMIT Internal Medicine; ATTEND Internal Medicine
DX: F10.231 Alcohol dependence with withdrawal delirium (principal); E83.42 Hypomagnesemia; R94.5 Abnormal results of liver function studies; J45.909 Unspecified asthma, uncomplicated; I10 Essential (primary) hypertension; E89.0 Postprocedural hypothyroidism; F31.9 Bipolar disorder, unspecified; F41.9 Anxiety disorder, unspecified; Z79.890 Hormone replacement therapy; Z79.899 Other long term (current) drug therapy; Z88.1 Allergy status to other antibiotic agents; Y90.0 Blood alcohol level of less than 20 mg/100 ml
CPT/HCPCS: 96376 ×3; 96361; 96372 ×3; 96365; 96375; 99285; 36415; 80053; 80048; 83735 ×2; 85025 ×2; G0378 ×3; G0480; J2060 ×2; J3411; J2405; J1650 ×3; J3475; 80320

== ENCOUNTER 2023-09-23 19:02 | Emergency (ER) | payer OTHER ==
[2023-09-23] MEDS ORDERED: THIAMINE 100 MG/ML 2 ML VIAL IM STA (20:10)
[2023-09-23] MEDS ORDERED: LORazepam 2 MG/ML INJ IV PRN ×2 (20:10)
--- NOTE | 2023-09-23 20:20 | ED ---
General Adult HPI - General Source: patient Mode of arrival: ambulatory Limitations: no limitations <Clay Garsia - Last Filed: 09/23/23 20:17> <Raman Timmons - Last Filed: 09/24/23 10:34> - General Chief complaint: Psychiatric Symptoms Stated complaint: Mental Health Time Seen by Provider: 09/23/23 19:55 - History of Present Illness Initial comments: Dictation was produced using Walkabout dictation software. please excuse any grammatical, word or spelling errors. Chief Complaint: 63-year-old female presents to the emergency department for suicidal ideation. History of Present Illness: Patient 63-year-old female presents emergency department for suicidal ideation. She suicidal because she can't stop drinking. He drinks appointment liquor daily. Last alcohol intake was 3-4 hours ago. Patient has planned to harm herself on the train tracks. She is brought in by police department. The ROS documented in this emergency department record has been reviewed and confirmed by me. Those systems with pertinent positive or negative responses have been documented in the HPI. All other systems are other negative and/or noncontributory. (Clay Garsia) - Related Data Home Medications Medication Instructions Recorded Confirmed Escitalopram [Lexapro] 20 mg PO DAILY 05/18/23 09/23/23 Nitroglycerin Sl Tabs [Nitrostat] 0.4 mg SL Q5M PRN 05/18/23 09/23/23 ARIPiprazole [Abilify] 5 mg PO DAILY 07/09/23 09/23/23 Levothyroxine Sodium [Synthroid] 150 mcg PO DAILY 07/09/23 09/23/23 Fexofenadine HCl [Debbi Allergy] 180 mg PO DAILY 08/14/23 09/23/23 Triamcinolone 0.1% Cream [Kenalog 1 applic TOPICAL BID PRN 08/15/23 09/23/23 0.1% Cream] Previous Rx's Medication Instructions Recorded Albuterol Inhaler [Ventolin Hfa 2 puff INHALATION RT-Q6H PRN #1 01/20/23 Inhaler] each Acetaminophen Tab [Tylenol] 650 mg PO Q6HR PRN tab 07/19/23 Ondansetron Odt [Zofran ODT] 4 mg PO Q8HR PRN #10 tab 08/04/23 Acamprosate Calcium [Campral] 666 mg PO TID 30 Days #90 tab 08/16/23 Thiamine [Vitamin B-1] 100 mg PO DAILY #90 tab 08/23/23 Folic Acid 1 mg PO DAILY #14 tab 08/30/23 amLODIPine [Norvasc] 2.5 mg PO DAILY #30 tab 08/30/23 Allergies Allergy/AdvReac Type Severity Reaction Status Date / Time clindamycin Allergy Unknown Rash/Hives Verified 09/23/23 22:03 acetylcysteine AdvReac Anaphylaxis Verified 09/23/23 22:03 [From Mucomyst] citalopram [From Celexa] AdvReac Hallucinati Verified 09/23/23 22:03 ons diphenhydramine HCl AdvReac Rapid Verified 09/23/23 22:03 [From Benadryl] Heart Rate Review of Systems ROS Other: All systems not noted in ROS Statement are negative. <Clay Garsia - Last Filed: 09/23/23 20:17> ROS Other: All systems not noted in ROS Statement are negative. <Raman Timmons - Last Filed: 09/24/23 10:34> ROS Statement: Those systems with pertinent positive or pertinent negative responses have been documented in the HPI. Past Medical History Past Medical History: Asthma, Cancer, Hypertension, Thyroid Disorder Additional Past Medical History / Comment(s): History of goiter status post thyroidectomy, questionable history of thyroid cancer although this is not clear, bipolar disorder, depression, history of suicidal ideations, history of drug overdose, alcoholism, seasonal rhinitis, psoriasis, breast cysts, history of broken toes in the right foot, hypertension, History of Any Multi-Drug Resistant Organisms: None Reported Past Surgical History: No Surgical Hx Reported Additional Past Surgical History / Comment(s): Thyroidectomy 1999, SKIN NEVI REMOVED Past Anesthesia/Blood Transfusion Reactions: Previous Problems w/ Anesthesia, Postoperative Nausea & Vomiting (PONV) Additional Past Anesthesia/Blood Transfusion Reaction / Comment(s): Lives in a house with two roommates. ETOH. Pt no longer has a drivers license- she has had 2 DUI's. 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 She is seen at [facility]. Past Psychological History: Anxiety, Bipolar, Depression Smoking Status: Never smoker Past Alcohol Use History: Abuse Past Drug Use History: None Reported - Past Family History Father Family Medical History: Cancer Additional Family Medical History / Comment(s): Father at age 64 of esophageal cancer. Father was an alcoholic and had cirrhosis of the liver. Mother Family Medical History: Cancer Additional Family Medical History / Comment(s): Mother of breast cancer at age 42yrs. <Clay Garsia - Last Filed: 09/23/23 20:17> General Exam Limitations: no limitations <Clay Garsia - Last Filed: 09/23/23 20:17> - General Exam Comments Initial Comments: PHYSICAL EXAM: General Impression: Alert and oriented x3, not in acute distress HEENT: Normocephalic atraumatic, extra-ocular movements intact, pupils equal and reactive to light bilaterally, mucous membranes moist. Cardiovascular: Heart regular rate and rhythm Chest: Able to complete full sentences, no retractions, no tachypnea Abdomen: abdomen soft, non-tender, non-distended, no organomegaly Musculoskeletal: Pulses present and equal in all extremities, no peripheral edema Motor: no focal deficits noted Neurological: CN II-XII grossly intact, no focal motor or sensory deficits noted Skin: Intact with no visualized rashes Psych: Normal affect and mood (Clay Garsia) Course Vital Signs 09/23/23 09/24/23 09/24/23 19:47 05:45 08:22 Temperature 97.9 F 98.0 F Pulse Rate 101 H 94 97 Respiratory 18 18 20 Rate Blood Pressure 121/85 137/87 135/82 O2 Sat by Pulse 95 95 95 Oximetry Medical Decision Making <Clay Garsia - Last Filed: 09/23/23 20:17> - Lab Data Result diagrams: 09/23/23 22:50 09/23/23 22:50 <Raman Timmons - Last Filed: 09/24/23 10:34> - Medical Decision Making Was pt. sent in by a medical professional or institution (, PA, MORTGAGE LOAN SPECIALIST, urgent care, hospital, or prison...) When possible be specific @ -No Did you speak to anyone other than the patient for history (EMS, parent, family, police, friend...)? What history was obtained from this source @ -No Did you review nursing and triage notes (agree or disagree)? Why? @ -I reviewed and agree with nursing and triage notes Were old charts reviewed (outside hosp., previous admission, EMS record, old EKG, old radiological studies, urgent care reports/EKG's, prison records)? Report findings @ -No old charts were reviewed Differential Diagnosis (chest pain, altered mental status, abdominal pain women, abdominal pain men, vaginal bleeding, musculoskeletal, weakness, fever, dyspnea, syncope, headache, dizziness, GI bleed, back pain, seizure, CVA, palpatations, mental health)? @ -Differential Mental Health: Depression, anxiety, bipolar, psychosis, schizophrenia, borderline personality, situational depression, adjustment disorder, behavioral disorder, brain tumor, malingering, substance abuse, encephalopathy, medication reaction, dementia, hypothyroidism, degenerative neurologic disorder, lupus.... This is not meant to be all-inclusive list EKG interpreted by me (3pts min.). @ -None done X-rays interpreted by me (1pt min.). @ -None done CT interpreted by me (1pt min.). @ -None done U/S interpreted by me (1pt. min.). @ -None done What testing was considered but not performed or refused? (CT, X-rays, U/S, labs)? Why? @ -None What meds were considered but not given or refused? Why? @ -None Did you discuss the management of the patient with other professionals (professionals i.e. , PA, MORTGAGE LOAN SPECIALIST, lab, RT, psych nurse, 7th grade social studies teacher, manager account management, teacher, chief diversity officer, shoe parts caser)? Give summary @ -No Was smoking cessation discussed for >3mins.? @ -No Was critical care preformed (if so, how long)? @ -No Were there social determinants of health that impacted care today? How? (Homelessness, low income, unemployed, alcoholism, drug addiction, transportation, low edu. Level, literacy, decrease access to med. care, penitentiary, rehab)? @ -No Was there de-escalation of care discussed even if they declined (Discuss DNR or withdrawal of care, Hospice)? DNR status @ -No What co-morbidities impacted this encounter? (DM, HTN, Smoking, COPD, CAD, Cancer, CVA, ARF, Chemo, Hep., AIDS, mental health diagnosis, sleep apnea, morbid obesity)? @ -None Was patient admitted / discharged? Hospital course, mention meds given and route, prescriptions, significant lab abnormalities, going to OR and other pertinent info. @ -63-year-old alcoholic female presents to the ER for suicidal ideation. Vital signs stable. Physical examination is benign. Patient does not have any clinical features to suggest occult overall. Patient pending sobriety for EPS evaluation. Undiagnosed new problem with uncertain prognosis? @ -No Drug Therapy requiring intensive monitoring for toxicity (Heparin, Nitro, Insul in, Cardizem)? @ -No Were any procedures done? @ -No Diagnosis/symptom? Acute, or Chronic, or Acute on Chronic? Uncomplicated (without systemic symptoms) or Complicated (systemic symptoms)? @ -suicidal Ideation, alcohol intoxication Side effects of treatment? @ -No Exacerbation, Progression, or Severe Exacerbation? @ -No Poses a threat to life or bodily function? How? (Chest pain, [place], [place], pneumonia, PE, COPD, DKA, ARF, appy, cholecystitis, CVA, Diverticulitis, Homicidal, Suicidal, threat to staff... and all critical care pts) @ -yes (Clay Garsia) Patient was seen by mental health team with plan for discharge. I did speak with psychiatric nurse Sandie Patient reevaluated by myself. Patient denies suicidal ideation. Patient does contract for safety. Patient does admit to having problems with alcohol and will continue to attempt quitting. Patient will be discharged. (Raman Timmons) - Lab Data Lab Results 09/23/23 09/23/23 09/24/23 Range/Units 22:50 22:50 06:00 WBC 5.2 (3.8-10.6) k/uL RBC 4.17 (3.80-5.40) m/uL Hgb 13.8 (11.4-16.0) gm/dL Hct 39.7 (34.0-46.0) % MCV 95.3 (80.0-100.0) fL MCH 33.1 (25.0-35.0) pg MCHC 34.7 (31.0-37.0) g/dL RDW 14.6 (11.5-15.5) % Plt Count 204 (150-450) k/uL MPV 8.8 Neutrophils % 57 % Lymphocytes % 31 % Monocytes % 6 % Eosinophils % 3 % Basophils % 1 % Neutrophils # 3.0 (1.3-7.7) k/uL Lymphocytes # 1.6 (1.0-4.8) k/uL Monocytes # 0.3 (0-1.0) k/uL Eosinophils # 0.1 (0-0.7) k/uL Basophils # 0.0 (0-0.2) k/uL Sodium 139 (137-145) mmol/L Potassium 3.9 (3.5-5.1) mmol/L Chloride 106 (98-107) mmol/L Carbon Dioxide 22 (22-30) mmol/L Anion Gap 11 mmol/L BUN 13 (7-17) mg/dL Creatinine 0.62 (0.52-1.04) mg/dL Est GFR (CKD-EPI)AfAm >90 (>60 ml/min/1.73 sqM) Est GFR (CKD-EPI)NonAf >90 (>60 ml/min/1.73 sqM) Glucose 94 (74-99) mg/dL Calcium 9.1 (8.4-10.2) mg/dL Urine Color Light Yellow Urine Appearance Clear (Clear) Urine pH 5.0 (5.0-8.0) Ur Specific [place] 1.017 (1.001-1.035) Urine Protein Negative (Negative) Urine Glucose (UA) Negative (Negative) Urine Ketones Negative (Negative) Urine Blood Negative (Negative) Urine Nitrite Negative (Negative) Urine Bilirubin Negative (Negative) Urine Urobilinogen <2.0 (<2.0) mg/dL Ur Leukocyte Esterase Negative (Negative) Urine Opiates Screen Not Detected (NotDetected) Ur Oxycodone Screen Not Detected (NotDetected) Urine Methadone Screen Not Detected (NotDetected) Ur Propoxyphene Screen Not Detected (NotDetected) Ur Barbiturates Screen Not Detected (NotDetected) U Tricyclic Antidepress Not Detected (NotDetected) Ur Phencyclidine Scrn Not Detected (NotDetected) Ur Amphetamines Screen Not Detected (NotDetected) U Methamphetamines Scrn Not Detected (NotDetected) U Benzodiazepines Scrn Detected H (NotDetected) Urine Cocaine Screen Not Detected (NotDetected) U Marijuana (THC) Screen Not Detected (NotDetected) Serum Alcohol 195 mg/dL Disposition <Clay Garsia - Last Filed: 09/23/23 20:17> Is patient prescribed a controlled substance at d/c from ED?: No Time of Disposition: 10:34 <Raman Timmons - Last Filed: 09/24/23 10:34> Clinical Impression: Depression, Alcohol intoxication Disposition: HOME SELF-CARE Condition: Stable Instructions (If sedation given, give patient instructions): Depression (ED), Alcohol Intoxication (ED) Additional Instructions: Please follow-up to primary care physician in the next day or 2 for recheck. Please follow-up with mental health services as directed. Discontinue alcohol use. Return for worsening symptoms or other concerns or thoughts of self-harm. Referrals: [facility] [Primary Care Provider] - 1-2 days
[2023-09-23 23:04] LABS: Basophils % (A) 1 %; Eosinophils # (A) 0.1 k/uL (0-0.7); Eosinophils % (A) 3 %; HCT 39.7 % (34.0-46.0); HGB 13.8 gm/dL (11.4-16.0); Lymphocytes # (A) 1.6 k/uL (1.0-4.8); Lymphocytes % (A) 31 %; MCH 33.1 pg (25.0-35.0); MCHC 34.7 g/dL (31.0-37.0); MCV 95.3 fL (80.0-100.0); Mean Platelet Volume 8.8; Monocytes # (A) 0.3 k/uL (0-1.0); Monocytes % (A) 6 %; Neutrophils % (A) 57 %; Platelet Count 204 k/uL (150-450); RBC 4.17 m/uL (3.80-5.40); RDW 14.6 % (11.5-15.5); WBC 5.2 k/uL (3.8-10.6)
[2023-09-23 23:32] LABS: African American GFR (CKD) >90 (>60 ml/min/1.73 sqM); Anion Gap 11 mmol/L; Blood Urea Nitrogen 13 mg/dL (7-17); Calcium 9.1 mg/dL (8.4-10.2); Carbon Dioxide 22 mmol/L (22-30); Chloride 106 mmol/L (98-107); Glucose 94 mg/dL (74-99); Non-African American GFR(CKD) >90 (>60 ml/min/1.73 sqM); Potassium 3.9 mmol/L (3.5-5.1); Sodium 139 mmol/L (137-145)
[2023-09-23 23:56] LABS: Alcohol 195 mg/dL
[2023-09-24] MEDS: LORazepam 2 MG/ML INJ IV PRN ×2 (05:47→08:19)
[2023-09-24 06:01] VITALS: TEMP 98
[2023-09-24 06:09] LABS: Appearance,Urine Clear (Clear); Bilirubin,Urine Negative (Negative); Blood,Urine Negative (Negative); Color,Urine Light Yellow; Glucose,Urine (UA) Negative (Negative); Ketones,Urine Negative (Negative); Leukocyte Esterase,Urine Negative (Negative); Nitrite,Urine Negative (Negative); Protein,Urine Negative (Negative); Specific Gravity,Urine 1.017 (1.001-1.035); Urobilinogen,Urine <2.0 mg/dL (<2.0)
[2023-09-24 06:22] LABS: Cocaine Screen,Urine Not Detected (NotDetected); Opiate Screen,Urine Not Detected (NotDetected); Phencyclidine Screen,Urine Not Detected (NotDetected); Urn Cannabinoid Scrn Not Detected (NotDetected)
[2023-09-24 06:23] LABS: Amphetamine Screen,Urine Not Detected (NotDetected); Barbiturate Screen,Urine Not Detected (NotDetected); Benzodiazepines Screen,Urine Detected (NotDetected); Methadone Screen, Urine Not Detected (NotDetected); Oxycodone Screen, Urine Not Detected (NotDetected); Tricyclic Antidepressant,Urine Not Detected (NotDetected)
[2023-09-24] MEDS ORDERED: THIAMINE 100 MG TAB PO SCH (09:00)
[2023-09-24] MEDS ORDERED: LORazepam 1 MG TAB PO ONE (10:40)
[2023-09-24 10:59] VITALS: BP 156/97; PULSE 120; RESP 18
== END 2023-09-24 10:49 | disposition home or self-care (01) ==
LOC: EC 19:02
DX: F32.A Depression, unspecified (principal); F10.129 Alcohol abuse with intoxication, unspecified; F41.9 Anxiety disorder, unspecified; I10 Essential (primary) hypertension; E07.9 Disorder of thyroid, unspecified; J45.909 Unspecified asthma, uncomplicated; Y90.6 Blood alcohol level of 120-199 mg/100 ml; Z79.890 Hormone replacement therapy; Z88.1 Allergy status to other antibiotic agents; Z88.8 Allergy status to other drugs, medicaments and biological substances
CPT/HCPCS: 82075; 36415; 80048; 85025; 81003; 80306; 99285; 96372; 96374; G0480; J2060; J3411; 80320

== ENCOUNTER 2023-09-27 15:15 | Inpatient (IN) | payer OTHER ==
--- NOTE | 2023-09-27 16:07 | ED ---
General Adult HPI - General Source: patient, EMS, RN notes reviewed Mode of arrival: EMS Limitations: no limitations <Raman Timmons - Last Filed: 09/27/23 16:06> <Clay Garsia - Last Filed: 09/29/23 12:32> - General Chief complaint: Psychiatric Symptoms Stated complaint: mental health Time Seen by Provider: 09/27/23 15:37 - History of Present Illness Initial comments: Patient is a pleasant 63-year-old female returning to the emergency Department with alcohol intoxication and suicidal thoughts. Patient states she started drinking again. Patient states when she hears the train sometimes she feels like she wants to hurt herself and sometimes she doesn't. (Raman Timmons) - Related Data Home Medications Medication Instructions Recorded Confirmed Escitalopram [Lexapro] 20 mg PO DAILY 05/18/23 09/28/23 Nitroglycerin Sl Tabs [Nitrostat] 0.4 mg SL Q5M PRN 05/18/23 09/28/23 ARIPiprazole [Abilify] 5 mg PO DAILY 07/09/23 09/28/23 Levothyroxine Sodium [Synthroid] 150 mcg PO DAILY 07/09/23 09/28/23 Fexofenadine HCl [Debbi Allergy] 180 mg PO DAILY 08/14/23 09/28/23 Triamcinolone 0.1% Cream [Kenalog 1 applic TOPICAL BID PRN 08/15/23 09/28/23 0.1% Cream] Previous Rx's Medication Instructions Recorded Albuterol Inhaler [Ventolin Hfa 2 puff INHALATION RT-Q6H PRN #1 01/20/23 Inhaler] each Acetaminophen Tab [Tylenol] 650 mg PO Q6HR PRN tab 07/19/23 Ondansetron Odt [Zofran ODT] 4 mg PO Q8HR PRN #10 tab 08/04/23 Acamprosate Calcium [Campral] 666 mg PO TID 30 Days #90 tab 08/16/23 Thiamine [Vitamin B-1] 100 mg PO DAILY #90 tab 08/23/23 Folic Acid 1 mg PO DAILY #14 tab 08/30/23 amLODIPine [Norvasc] 2.5 mg PO DAILY #30 tab 08/30/23 Allergies Allergy/AdvReac Type Severity Reaction Status Date / Time clindamycin Allergy Unknown Rash/Hives Verified 09/27/23 15:33 acetylcysteine AdvReac Anaphylaxis Verified 09/27/23 15:33 [From Mucomyst] citalopram [From Celexa] AdvReac Hallucinati Verified 09/27/23 15:33 ons diphenhydramine HCl AdvReac Rapid Verified 09/27/23 15:33 [From Benadryl] Heart Rate Review of Systems ROS Other: All systems not noted in ROS Statement are negative. Constitutional: Denies: fever Eyes: Denies: eye pain ENT: Denies: ear pain Respiratory: Denies: cough Cardiovascular: Denies: chest pain Psychiatric: Reports: as per HPI <Raman Timmons - Last Filed: 09/27/23 16:06> ROS Other: All systems not noted in ROS Statement are negative. <Clay Garsia - Last Filed: 09/29/23 12:32> ROS Statement: Those systems with pertinent positive or pertinent negative responses have been documented in the HPI. Past Medical History Past Medical History: Asthma, Cancer, Hypertension, Thyroid Disorder Additional Past Medical History / Comment(s): History of goiter status post thyroidectomy, questionable history of thyroid cancer although this is not clear, bipolar disorder, depression, history of suicidal ideations, history of drug overdose, alcoholism, seasonal rhinitis, psoriasis, breast cysts, history of broken toes in the right foot, History of Any Multi-Drug Resistant Organisms: None Reported Past Surgical History: No Surgical Hx Reported Additional Past Surgical History / Comment(s): Thyroidectomy 1999, SKIN NEVI REMOVED Past Anesthesia/Blood Transfusion Reactions: Previous Problems w/ Anesthesia, Postoperative Nausea & Vomiting (PONV) Additional Past Anesthesia/Blood Transfusion Reaction / Comment(s): Lives in a house with two roommates. ETOH. Pt no longer has a drivers license- she has had 2 DUI's. 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 She is seen at [facility]. Past Psychological History: Anxiety, Bipolar, Depression Smoking Status: Never smoker Past Alcohol Use History: Abuse, Daily Past Drug Use History: None Reported - Past Family History Father Family Medical History: Cancer Additional Family Medical History / Comment(s): Father at age 64 of esophageal cancer. Father was an alcoholic and had cirrhosis of the liver. Mother Family Medical History: Cancer Additional Family Medical History / Comment(s): Mother of breast cancer at age 42yrs. <Raman Timmons - Last Filed: 09/27/23 16:06> General Exam Limitations: no limitations General appearance: alert, in no apparent distress Head exam: Present: atraumatic Eye exam: Present: normal appearance Neck exam: Present: normal inspection Respiratory exam: Present: normal lung sounds bilaterally Cardiovascular Exam: Present: regular rate, normal rhythm GI/Abdominal exam: Present: soft. Absent: tenderness Extremities exam: Present: normal inspection Psychiatric exam: Present: normal affect, normal mood Skin exam: Present: normal color <Raman Timmons - Last Filed: 09/27/23 16:06> Course Vital Signs 09/27/23 09/28/23 09/28/23 15:22 01:14 07:00 Temperature 97.7 F 97.8 F Pulse Rate 70 77 97 Respiratory 17 19 18 Rate Blood Pressure 132/83 130/87 135/91 O2 Sat by Pulse 93 L 95 96 Oximetry 09/28/23 09/28/23 09/29/23 10:12 14:22 06:41 Temperature 98.2 F Pulse Rate 95 82 88 Respiratory 18 18 18 Rate Blood Pressure 136/99 148/80 148/80 O2 Sat by Pulse 97 97 98 Oximetry Medical Decision Making <Clay Garsia - Last Filed: 09/29/23 12:32> - Medical Decision Making I was approached by EPS stating that patient still appeared to be asymptomatic and showing signs of persistent EtOH withdrawal. They requested patient be admitted to medicine with consultation to psychiatry. Patient advised at bedside at 1231 still showing elevated CIWA score. (Clay Garsia) - Lab Data Lab Results 09/27/23 Range/Units 16:15 Urine Opiates Screen Not Detected (NotDetected) Ur Oxycodone Screen Not Detected (NotDetected) Urine Methadone Screen Not Detected (NotDetected) Ur Propoxyphene Screen Not Detected (NotDetected) Ur Barbiturates Screen Not Detected (NotDetected) U Tricyclic Antidepress Not Detected (NotDetected) Ur Phencyclidine Scrn Not Detected (NotDetected) Ur Amphetamines Screen Not Detected (NotDetected) U Methamphetamines Scrn Not Detected (NotDetected) U Benzodiazepines Scrn Detected H (NotDetected) Urine Cocaine Screen Not Detected (NotDetected) U Marijuana (THC) Screen Not Detected (NotDetected) Disposition <Raman Timmons - Last Filed: 09/27/23 16:06> <Clay Garsia - Last Filed: 09/29/23 12:32> Clinical Impression: Alcohol withdrawal Disposition: ADMITTED IP TO THIS HOSP Referrals: [facility] [Primary Care Provider] - 1-2 days
[2023-09-27 16:38] LABS: Amphetamine Screen,Urine Not Detected (NotDetected); Barbiturate Screen,Urine Not Detected (NotDetected); Benzodiazepines Screen,Urine Detected (NotDetected); Cocaine Screen,Urine Not Detected (NotDetected); Methadone Screen, Urine Not Detected (NotDetected); Opiate Screen,Urine Not Detected (NotDetected); Oxycodone Screen, Urine Not Detected (NotDetected); Phencyclidine Screen,Urine Not Detected (NotDetected); Tricyclic Antidepressant,Urine Not Detected (NotDetected); Urn Cannabinoid Scrn Not Detected (NotDetected)
[2023-09-28] MEDS ORDERED: LORazepam 2 MG/ML INJ IV PRN ×2 (01:05→01:07)
[2023-09-28] MEDS ORDERED: THIAMINE 100 MG/ML 2 ML VIAL IM STA (01:06)
[2023-09-28] MEDS: LORazepam 2 MG/ML INJ IV PRN ×2 (01:19→04:45)
[2023-09-28] MEDS: LORazepam 1 MG TAB PO PRN (10:23)
[2023-09-28] MEDS: FOLIC ACID 1 MG TAB PO SCH (10:23)
[2023-09-28] MEDS: MULTIVITAMINS, THERA 1 EACH TAB PO SCH (10:23)
[2023-09-28] MEDS ORDERED: IBUPROFEN 600 MG TAB PO STA ×2 (14:55→21:50)
[2023-09-29] MEDS: LORazepam 1 MG TAB PO PRN ×2 (10:53→14:46)
[2023-09-29] MEDS ORDERED: NALOXONE 0.4 MG/ML 1 ML VIAL IV PRN (12:29)
[2023-09-29] MEDS ORDERED: ALBUTEROL HFA INHALER INHALATION PRN (13:52)
[2023-09-29] MEDS: ARIPiprazole 5 MG TAB PO SCH (14:46)
[2023-09-29] MEDS: FOLIC ACID 1 MG TAB PO SCH ×2 (14:46→14:49)
[2023-09-29] MEDS: ESCITALOPRAM 20 MG TAB PO SCH (14:46)
[2023-09-29] MEDS: amLODIPine 2.5 MG TAB PO SCH (14:46)
[2023-09-29] MEDS: LEVOTHYROXINE 75 MCG TAB PO SCH (14:46)
[2023-09-29] MEDS: MULTIVITAMINS, THERA 1 EACH TAB PO SCH (14:46)
[2023-09-29] MEDS: THIAMINE 100 MG TAB PO SCH (14:46)
--- NOTE | 2023-09-29 17:28 | P.HPIM ---
History of Present Illness H&P Date: 09/29/23 History of Presenting Illness: Patient is a very pleasant 63-year-old female with a past medical history of EtOH abuse, hypothyroidism status post thyroidectomy, and bipolar disorder. She presented to the emergency department on 09/27/23/psychiatric evaluation. Patient at that time reported having suicidal ideations. Patient was being held in the emergency department while awaiting placement to inpatient psychiatric facility. Patient has long-standing history of alcohol abuse drinking approximately 1-1-1/2 pints daily. Reports last alcoholic drink was on 09/27/23. While awaiting inpatient psychiatric placement, patient then began to withdrawal from alcohol. We were then called for admission 48 hours after the patient's arrival to the emergency department. Patient seen and fully evaluated at bedside, currently patient denying suicidal ideations but does report she is in a very dark and depressed state. Patient reports also feeling nauseous, anxious, and tremulousness. She denies having any headache, lightheadedness, dizziness, chest pain, palpitations, shortness of breath, which denies any numbness/tingling/weakness in her extremities. Patient also reports being very concerned because she has not had her home medications in 3 days. Workup that was completed in the emergency department with a urine drug screen completed on 09/27/23 showing positive for benzodiazepines. No other labs are workup was completed. Review of systems: Pertinent positives and negatives as discussed in HPI, a complete review of systems was performed and all other systems are negative. Physical exam: Vital signs reviewed and stable. General: Nontoxic, no distress and appears stated age. Derm: Skin warm and dry, normal coloration for ethnicity. Head: Atraumatic, normocephalic and symmetric. Eyes: EOMs intact, no lid lag, and anicteric sclera Mouth: no lip lesions, mucus membranes moist Cardiovascular: regular rate and rhythm with normal S1S2, no murmur, positive posterior tibial pulses bilaterally, and cap refill < 2 seconds. Lungs: Respirations even, regular, and unlabored on room air. Lungs CTA bilaterally, no rhonchi, no rales, no wheezing, and no accessory muscle usage. Abdominal: soft, nontender to palpation, no guarding, no appreciable org anomegaly Ext: ROM intact. No gross muscle atrophy, no edema, no contractures Neuro: Speech clear, face symmetrical and CN II-XII grossly intact with no noted focal neuro deficits Psych: Alert and oriented to person, place, time, and situation. Appropriate and pleasant affect. Assessment and Plan of Care: Alcohol withdrawal with DTs -Order placed for monitoring of CIWA scores and patient to be medicated with Ativan 0.5 mg every 4 hours as needed for CIWA score of 4-5, Ativan 1 mg every 4 hours for CIWA score of 6-7, Ativan 2 mg every 3 hours CIWA score of 8-9, and Ativan 2 mg every 2 hours for CIWA score of 10 or greater. -Continuous IV hydration. -Thiamine 100 mg twice a day -Multivitamin daily -Folate 1 mg daily -Seizure, fall, aspiration, and elopement precautions in place. -Urine drug screen -Continued close monitoring of electrolytes and replace as needed. -Telemetry monitoring. Reports of suicidal ideations -Patient currently denies having suicidal ideations. -Psychiatry is following/consulted Hypothyroidism status post thyroidectomy -Continue daily medication regimen with the levothyroxine 150 g daily. Bipolar disorder -Continue daily medication regimen with Lexapro 20 mg daily and Abilify 5 mg daily No workup was completed in the emergency department other than urine drug screen which was positive for benzodiazepines. Patient was not petitioned by ER or certification completed. Labs were drawn. Orderfor CBC, CMP, magnesium, and TSH. Reviewed patient's home medications and reordered levothyroxine 150 g daily, Lexapro 20 mg daily, and Abilify 5 mg daily. CODE STATUS: Full code DVT prophylaxis: Lovenox Discussed with: Patient and RN Anticipated discharge date: Clinical course to determine Anticipated discharge place: Home Patient was seen independently by Nurse Pracitioner. This document was prepared using [employer] dictation software. Please allow for errors in talent acquisition administrator, while rare they do occur. Vahid Ernandez NP rendered care for this patient independently, reviewed the findings and plan as documented in the note above. I did not physically speak with or examine the patient on this date. Past Medical History Past Medical History: Asthma, Cancer, Hypertension, Thyroid Disorder Additional Past Medical History / Comment(s): History of goiter status post thyroidectomy, questionable history of thyroid cancer although this is not clear, bipolar disorder, depression, history of suicidal ideations, history of drug overdose, alcoholism, seasonal rhinitis, psoriasis, breast cysts, history of broken toes in the right foot, History of Any Multi-Drug Resistant Organisms: None Reported Past Surgical History: No Surgical Hx Reported Additional Past Surgical History / Comment(s): Thyroidectomy 1999, SKIN NEVI REMOVED Past Anesthesia/Blood Transfusion Reactions: Previous Problems w/ Anesthesia, Postoperative Nausea & Vomiting (PONV) Additional Past Anesthesia/Blood Transfusion Reaction / Comment(s): Lives in a house with two roommates. ETOH. Pt no longer has a drivers license- she has had 2 DUI's. 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 She is seen at [facility]. Past Psychological History: Anxiety, Bipolar, Depression Smoking Status: Never smoker Past Alcohol Use History: Abuse, Daily Past Drug Use History: None Reported - Past Family History Father Family Medical History: Cancer Additional Family Medical History / Comment(s): Father at age 64 of esophageal cancer. Father was an alcoholic and had cirrhosis of the liver. Mother Family Medical History: Cancer Additional Family Medical History / Comment(s): Mother of breast cancer at age 42yrs. Medications and Allergies Home Medications Medication Instructions Recorded Confirmed Type Albuterol Inhaler [Ventolin Hfa 2 puff INHALATION RT-Q6H PRN #1 01/20/23 09/28/23 Rx Inhaler] each Escitalopram [Lexapro] 20 mg PO DAILY 05/18/23 09/28/23 History Nitroglycerin Sl Tabs [Nitrostat] 0.4 mg SL Q5M PRN 05/18/23 09/28/23 History ARIPiprazole [Abilify] 5 mg PO DAILY 07/09/23 09/28/23 History Levothyroxine Sodium [Synthroid] 150 mcg PO DAILY 07/09/23 09/28/23 History Acetaminophen Tab [Tylenol] 650 mg PO Q6HR PRN tab 07/19/23 09/28/23 Rx Ondansetron Odt [Zofran ODT] 4 mg PO Q8HR PRN #10 tab 08/04/23 09/28/23 Rx Fexofenadine HCl [Debbi Allergy] 180 mg PO DAILY 08/14/23 09/28/23 History Triamcinolone 0.1% Cream [Kenalog 1 applic TOPICAL BID PRN 08/15/23 09/28/23 History 0.1% Cream] Acamprosate Calcium [Campral] 666 mg PO TID 30 Days #90 tab 08/16/23 09/28/23 Rx Thiamine [Vitamin B-1] 100 mg PO DAILY #90 tab 08/23/23 09/28/23 Rx Folic Acid 1 mg PO DAILY #14 tab 08/30/23 09/28/23 Rx amLODIPine [Norvasc] 2.5 mg PO DAILY #30 tab 08/30/23 09/28/23 Rx Allergies Allergy/AdvReac Type Severity Reaction Status Date / Time clindamycin Allergy Unknown Rash/Hives Verified 09/27/23 15:33 acetylcysteine AdvReac Anaphylaxis Verified 09/27/23 15:33 [From Mucomyst] citalopram [From Celexa] AdvReac Hallucinati Verified 09/27/23 15:33 ons diphenhydramine HCl AdvReac Rapid Verified 09/27/23 15:33 [From Benadryl] Heart Rate Physical Exam Vitals: Vital Signs Temp Pulse Resp BP Pulse Ox 09/29/23 06:41 98.2 F 88 18 148/80 98 09/28/23 14:22 82 18 148/80 97 Results CBC & Chem 7: 09/30/23 08:42 09/30/23 08:42
[2023-09-29] MEDS: LORazepam 2 MG/ML INJ IV PRN (18:51)
[2023-09-29 20:44] LABS: Magnesium 1.7 mg/dL (1.6-2.3)
[2023-09-29 20:50] LABS: Basophils % (A) 0 %; Eosinophils # (A) 0.2 k/uL (0-0.7); Eosinophils % (A) 4 %; HCT 41.2 % (34.0-46.0); HGB 13.9 gm/dL (11.4-16.0); Lymphocytes # (A) 1.1 k/uL (1.0-4.8); Lymphocytes % (A) 21 %; MCH 32.7 pg (25.0-35.0); MCHC 33.8 g/dL (31.0-37.0); MCV 96.6 fL (80.0-100.0); Mean Platelet Volume 8.9; Monocytes # (A) 0.3 k/uL (0-1.0); Monocytes % (A) 6 %; Neutrophils # (A) 3.5 k/uL (1.3-7.7); Neutrophils % (A) 67 %; Platelet Count 170 k/uL (150-450); RBC 4.26 m/uL (3.80-5.40); RDW 14.3 % (11.5-15.5); WBC 5.3 k/uL (3.8-10.6)
[2023-09-29 22:04] LABS: T4, Free (Free Thyroxine) 0.76 ng/dL (0.78-2.19)
[2023-09-30] MEDS: LEVOTHYROXINE 75 MCG TAB PO SCH (06:08)
[2023-09-30 08:25] VITALS: RESP 16
[2023-09-30] MEDS: amLODIPine 2.5 MG TAB PO SCH (08:30)
[2023-09-30] MEDS: MULTIVITAMINS, THERA 1 EACH TAB PO SCH (08:30)
[2023-09-30] MEDS: THIAMINE 100 MG TAB PO SCH (08:30)
[2023-09-30] MEDS: ESCITALOPRAM 20 MG TAB PO SCH (08:30)
[2023-09-30] MEDS: LORazepam 1 MG TAB PO PRN (08:30)
[2023-09-30] MEDS: FOLIC ACID 1 MG TAB PO SCH (08:30)
[2023-09-30] MEDS: ARIPiprazole 5 MG TAB PO SCH (08:31)
[2023-09-30] MEDS ORDERED: ENOXAPARIN 40 MG/0.4 ML SYRINGE SQ SCH (09:00)
[2023-09-30 09:17] LABS: HCT 45.1 % (34.0-46.0); MCHC 33.3 g/dL (31.0-37.0); MCV 95.8 fL (80.0-100.0); Mean Platelet Volume 8.8; Platelet Count 189 k/uL (150-450); RBC 4.71 m/uL (3.80-5.40); RDW 14.7 % (11.5-15.5); WBC 4.8 k/uL (3.8-10.6)
[2023-09-30 09:26] LABS: ALT 51 U/L (4-34); AST 53 U/L (14-36); African American GFR (CKD) >90 (>60 ml/min/1.73 sqM); Albumin 4.5 g/dL (3.5-5.0); Alkaline Phosphatase 42 U/L (38-126); Anion Gap 10 mmol/L; Blood Urea Nitrogen 10 mg/dL (7-17); Carbon Dioxide 22 mmol/L (22-30); Chloride 101 mmol/L (98-107); Glucose 108 mg/dL (74-99); Magnesium 1.7 mg/dL (1.6-2.3); Non-African American GFR(CKD) >90 (>60 ml/min/1.73 sqM); Potassium 4.3 mmol/L (3.5-5.1); Sodium 133 mmol/L (137-145); Total Bilirubin 0.9 mg/dL (0.2-1.3); Total Protein 7.7 g/dL (6.3-8.2)
[2023-09-30 11:54] VITALS: PULSE 79
--- NOTE | 2023-09-30 13:16 | P.CN ---
Psychiatric Consult - . Consult date: 09/30/23 Consult:: 09/30/23 12:28 IDENTIFYING DATA: This patient is a 62-year-old female with significant history of alcohol use disorder c/o acute alcohol withdrawal, depression and SI, she currently lives with a roommate in a house, she is she has no kids. HISTORY OF PRESENT ILLNESS: The patient presented to the hospital on 09/27 for acute alcohol withdrawal and depression and suicidal ideations. Patient's uri ne drug screen was positive for benzodiazepines. She apparently was claiming that she is drinking over a pint and a half of vodka a day. Claims her last drink was the afternoon before coming into the hospital. She was endorsing significant alcohol withdrawal symptoms. Patient had a sitter at her side the time of the evaluation. Patient was agreeable to speak to mortgage underwriter today, she appeared to have a soft tone of voice, states that she is feeling depressed and anxious. Claims that she has been struggling significantly with her bipolar disorder. States that she has "ups and downs". States she started feeling suicidal again before coming into the hospital. States that she has mainly been struggling with alcohol and feels not rehab has not been helping. She also claims that she feels her medications of not been helping as well was agreeable to trying new medications. States that she is still having withdrawal symptoms including shaking and anxiety. States that the holidays have been very stressful for her, she is feeling alone and isolated and was sad about her living situation. States that she has been grieving her who 4 years ago. States that her anxiety level is high, sleep is poor appetite is poor. Claims that she feels overwhelmed, hopeless and helpless. She is not reporting any auditory or visual hallucinations. She is denying any current yoon icidal or homicidal ideations intent or plan however does endorse fleeting SI. She denies any paranoia or other delusions. PAST PSYCHIATRIC HISTORY: Patient states that he has previously diagnosed bi polar 2 disorder and alcohol use disorder. The patient reports that she does well on her current regimen of Abilify, Lamictal, Lexapro, and trazodone. She is currently open with [facility]. She has had prior psychiatric admissions with the last one being in December 2022 on [address]. She does report one prior attempt at suicide by jumping in front of a train in the distant past. PAST MEDICAL HISTORY: Past Medical History: Asthma, Cancer, Hypertension, Thyroid Disorder Additional Past Medical History / Comment(s): History of goiter status post thyroidectomy, questionable history of thyroid cancer although this is not clear, bipolar disorder, depression, history of suicidal ideations, history of drug overdose, alcoholism, seasonal rhinitis, psoriasis, breast cysts, history of broken toes in the right foot, hypertension, History of Any Multi-Drug Resistant Organisms: None Reported Past Surgical History: No Surgical Hx Reported Additional Past Surgical History / Comment(s): Thyroidectomy 1999, SKIN NEVI REMOVED Past Anesthesia/Blood Transfusion Reactions: Previous Problems w/ Anesthesia, Postoperative Nausea & Vomiting (PONV) Additional Past Anesthesia/Blood Transfusion Reaction / Comment(s): patient states she is homeless. Pt is normally independent. Pt is an alcoholic. She is feeling more depressed lately and ashamed of her alcoholism. PT STATED SHE IS A BINGE DRINKER AND IS A BLACK OUT DRINKER,THINKS SHE STARTED DRINKING 4-5 DAYS AGO 3 PINTS A DAY AND WHEN COMING DOWN DRANK SUAVE HAIR SPRAY Pt no longer has a drivers license- she has had 2 DUI's. 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 She is seen at [facility]. Past Psychological History: Anxiety, Bipolar, Depression Smoking Status: Never smoker Past Alcohol Use History: Abuse, Daily, Heavy Past Drug Use History: None Reported ALLERGIES: as per EMR CHEMICAL DEPENDENCY HISTORY: as per HPI. FAMILY PSYCHIATRIC/SUBSTANCE USE HISTORY: denies SOCIAL HISTORY: Patient was born and raised in [place], [place]. She is after her second 6 years ago. She has no children. She is currently unemployed. She lives in her house with her roomates. 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 MENTAL STATUS EXAM: General Appearance: Patient appears to be have calderon hair, glasses, stated age is alert, pleasant, and cooperative. Patient appears to have fair hygiene and grooming wearing hospital gown with fair eye contact. Behavior: Patient is calmly lying in bed without any agitated behavior. attempts to cooperate, appears depressed and anxious Speech: Patient's speech is fluent and nonpressured. hesitant, soft tone Mood/Affect: Patient reports their mood is "depressed and anxious", affect is congruent Suicidality/Homicidality: Patient vehemently denies any current suicidal or homicidal ideation Perceptions: Patient denies any visual hallucinations and denies any auditory hallucinations Though content/process: There is no evidence of any delusional thought content and thought process is linear. Focus on her symptoms of depression, endorsing past suicidal ideations. Memory and concentration: AOX3, grossly intact for the purposes of this session. Can spell "WORLD" backwards Judgment and insight: Poor IMPRESSIONS: Bipolar disorder, current episode depressed Alcohol use disorder, severe dependence with alcohol withdrawal PLAN: -At this time patient DOES meet criteria for inpatient psychiatric admission due to patients poor self care, suicidal ideations, uncontrolled depression/anxiety and poor sleep. patient is high risk for relapse of etoh. -Would recommend the following medication changes/additions: Lexapro 20 mg daily for mood/anxiety, trazodone 150 mg daily at bedtime for insomnia/mood, continue Abilify 5 mg daily for mood stabilization, Librium was 20 mg 3 times a day scheduled with plan to taper off for alcohol withdrawal. -CIWA protocol with PRN Ativan for alcohol withdrawal. Continue to monitor vital signs. -once patient is medically stable, then she will qualify for inpt psych admissi on. please continue sitter for safety untl patient is safely transferred to psych. -Communicated plan to patient's nurse -Psychiatry will sign off at this time -Please contact with any questions.
[2023-09-30] MEDS ORDERED: MAGNESIUM OXIDE 400 MG TAB PO STA (13:24)
--- NOTE | 2023-09-30 13:34 | P.DS ---
Providers Date of admission: 09/29/23 12:29 Expected date of discharge: 09/30/23 Attending physician: Romel Almeida MD Consults: 09/29/23 12:29 Consult Physician Routine Consulting Provider: Rahul Colón Consult Reason/Comments: psych Do you want consulting provider notified?: Yes Primary care physician: [facility] Hospital Course: Discharge Diagnosis: Alcohol withdrawal with DTs. Patient underwent medical detox and has only required 3 mg of Ativan over the past 24 hours and is currently doing well with a current CIWA of 0. Patient is medically stable for discharge to inpatient psychiatric facility at this time. Reports of suicidal ideations. Psychiatry evaluating recommending patient be placed in inpatient psychiatric facility for admission. Hypothyroidism status post thyroidectomy. TSH elevated at 15.5 with free T4 of 0.76, it is unclear if patient has been compliant with home medications and does report missing 3 days of medications while she was in the emergency department. At this time recommend resuming home dose of levothyroxine 150 g daily. Recommend patient follow up with PCP in 6 weeks for repeat testing of TSH and free T4. Bipolar disorder. Psychiatry recommending medication changes including Lexapro 20 mg daily for mood/anxiety, trazodone 150 mg nightly for insomnia/mood stability, continuation of Abilify 5 mg daily for mood stabilization, and tapering of Librium. Inpatient psychiatry team to manage these medications. Hospital Course: Patient is a very pleasant 63-year-old female with a past medical history of EtOH abuse, hypothyroidism status post thyroidectomy, and bipolar disorder. She presented to the emergency department on 09/27/23/psychiatric evaluation. Patient at that time reported having suicidal ideations. Patient was being held in the emergency department while awaiting placement to inpatient psychiatric facility. Patient has long-standing history of alcohol abuse drinking approximately 1-1-1/2 pints daily. Reports last alcoholic drink was on 09/27/23. While awaiting inpatient psychiatric placement, patient then began to withdrawal from alcohol. We were then called for admission 48 hours after the patient's arrival to the emergency department. Patient seen and fully evaluated at bedside, currently patient denying suicidal ideations but does report she is in a very dark and depressed state. Patient reports also feeling nauseous, anxious, and tremulousness. She denies having any headache, lightheadedness, dizziness, chest pain, palpitations, shortness of breath, which denies any numbness/tingling/weakness in her extremities. Patient also reports being very concerned because she has not had her home medications in 3 days. Workup that was completed in the emergency department with a urine drug screen completed on 09/27/23 showing positive for benzodiazepines. No other labs are workup was completed. Patient was admitted under our services for medical detox secondary to findings of acute alcohol withdrawal. Labs were completed and reviewed. CBC unremarkable. BMP did reveal mild hyponatremia with sodium of 133. Liver profile showing slightly elevated AST of 53 and ALT of 51 likely secondary to chronic long-standing alcohol abuse otherwise no abnormalities. Magnesium was slightly low at 1.7 and orders Mag-Ox 400 milligrams by mouth 1 dose for replacement. TSH elevated at 15.5 with free T4 of 0.76, it is unclear if patient has been compliant with home medications and does report missing 3 days of medications while she was in the emergency department. At this time recommend resuming home dose of levothyroxine 150 g daily. Recommend patient follow up with PCP in 6 weeks for repeat testing of TSH and free T4. Patient has only required a total of 3 mg of Ativan over the past 24 hours. She reports feeling great this morning and is ambulating the halls with her sitter. She denies having any needs or complaints. She was evaluated by psychiatry and they are stating patient meets inpatient psychiatric admission criteria and to be transferred to inpatient psychiatric unit once medically stable. Again patient is only required 3 mg of Ativan over the past 24 hours and appears to be doing well with no complaints. Patient has been medically optimized and cleared for discharge to inpatient psychiatric unit. Physical exam: Vital signs reviewed and stable. General: Nontoxic, no distress and appears stated age. Derm: Skin warm and dry, normal coloration for ethnicity. Head: Atraumatic, normocephalic and symmetric. Eyes: EOMs intact, no lid lag, and anicteric sclera Mouth: no lip lesions, mucus membranes moist Cardiovascular: regular rate and rhythm with normal S1S2, no murmur, positive posterior tibial pulses bilaterally, and cap refill < 2 seconds. Lungs: Respirations even, regular, and unlabored on room air. Lungs CTA bi laterally, no rhonchi, no rales, no wheezing, and no accessory muscle usage. Abdominal: soft, nontender to palpation, no guarding, no appreciable organomegaly Ext: ROM intact. No gross muscle atrophy, no edema, no contractures Neuro: Speech clear, face symmetrical and CN II-XII grossly intact with no noted focal neuro deficits Psych: Alert and oriented to person, place, time, and situation. Appropriate and pleasant affect. A total of 33 minutes of time were spent preparing this complex discharge summary. Pt was discharged on 09/30/23 at 1:21 PM. Patient was seen independently by Nurse Practitioner. This document was prepared using [employer] dictation software. Please allow for errors in donor specialist while rare they do occur. Vahid Ernandez NP rendered care for this patient independently, reviewed the findings and plan as documented in the note above. I did not physically speak with or examine the patient on this date. Patient Condition at Discharge: Stable Plan - Discharge Summary New Discharge Prescriptions: No Action Escitalopram [Lexapro] 20 mg PO DAILY Acetaminophen Tab [Tylenol] 650 mg PO Q6HR PRN tab PRN Reason: Mild Pain Or Fever > 100.5 Ondansetron Odt [Zofran ODT] 4 mg PO Q8HR PRN #10 tab PRN Reason: Nausea Acamprosate Calcium [Campral] 666 mg PO TID 30 Days #90 tab Thiamine [Vitamin B-1] 100 mg PO DAILY #90 tab Folic Acid 1 mg PO DAILY #14 tab amLODIPine [Norvasc] 2.5 mg PO DAILY #30 tab Albuterol Inhaler [Ventolin Hfa Inhaler] 2 puff INHALATION RT-Q6H PRN #1 each PRN Reason: Shortness Of Breath Nitroglycerin Sl Tabs [Nitrostat] 0.4 mg SL Q5M PRN PRN Reason: Chest Pain ARIPiprazole [Abilify] 5 mg PO DAILY Levothyroxine Sodium [Synthroid] 150 mcg PO DAILY Fexofenadine HCl [Debbi Allergy] 180 mg PO DAILY Triamcinolone 0.1% Cream [Kenalog 0.1% Cream] 1 applic TOPICAL BID PRN PRN Reason: psoriasis Discharge Medication List Albuterol Inhaler [Ventolin Hfa Inhaler] 2 puff INHALATION RT-Q6H PRN #1 each 01/20/23 [Rx] Escitalopram [Lexapro] 20 mg PO DAILY 05/18/23 [History] Nitroglycerin Sl Tabs [Nitrostat] 0.4 mg SL Q5M PRN 05/18/23 [History] ARIPiprazole [Abilify] 5 mg PO DAILY 07/09/23 [History] Levothyroxine Sodium [Synthroid] 150 mcg PO DAILY 07/09/23 [History] Acetaminophen Tab [Tylenol] 650 mg PO Q6HR PRN tab 07/19/23 [Rx] Ondansetron Odt [Zofran ODT] 4 mg PO Q8HR PRN #10 tab 08/04/23 [Rx] Fexofenadine HCl [Debbi Allergy] 180 mg PO DAILY 08/14/23 [History] Triamcinolone 0.1% Cream [Kenalog 0.1% Cream] 1 applic TOPICAL BID PRN 08/15/23 [History] Acamprosate Calcium [Campral] 666 mg PO TID 30 Days #90 tab 08/16/23 [Rx] Thiamine [Vitamin B-1] 100 mg PO DAILY #90 tab 08/23/23 [Rx] Folic Acid 1 mg PO DAILY #14 tab 08/30/23 [Rx] amLODIPine [Norvasc] 2.5 mg PO DAILY #30 tab 08/30/23 [Rx] Follow up Appointment(s)/Referral(s): [facility] [Primary Care Provider] - 1-2 days Discharge/Stand Alone Forms: AA Meetings [facility], Community Resources, Outpatient Counseling, Inp Substance Abuse Facilities, Personal Branch General Manager Discharge Disposition: TRANSFER TO PSYCH HOSP/UNIT
[2023-09-30] MEDS ORDERED: IBUPROFEN 800 MG TAB PO PRN (15:57)
[2023-09-30 16:11] VITALS: BP 125/79; TEMP 98.8
[2023-09-30] MEDS ORDERED: traZODone HCL 50 MG TAB PO SCH (21:00)
== END 2023-09-30 21:03 | disposition still patient (30) | DRG 775 ==
LOC: EC 15:15 → 3SCARD 09-29 12:29
PROVIDERS: ADMIT Student in an Organized Health Care Education/Training Program; ATTEND Student in an Organized Health Care Education/Training Program
PROC: HZ2ZZZZ Detoxification Services for Substance Abuse Treatment (ICD-10-PCS; principal; 2023-09-29)
DX: F10.231 Alcohol dependence with withdrawal delirium (principal); F10.229 Alcohol dependence with intoxication, unspecified; E87.1 Hypo-osmolality and hyponatremia; E03.9 Hypothyroidism, unspecified; Z79.890 Hormone replacement therapy; R45.851 Suicidal ideations; J45.909 Unspecified asthma, uncomplicated; F41.9 Anxiety disorder, unspecified; Z20.822 Contact with and (suspected) exposure to COVID-19; F31.9 Bipolar disorder, unspecified; I10 Essential (primary) hypertension; L40.9 Psoriasis, unspecified; J30.2 Other seasonal allergic rhinitis; Z63.72 Alcoholism and drug addiction in family; Z79.899 Other long term (current) drug therapy; Z81.1 Family history of alcohol abuse and dependence; Z88.8 Allergy status to other drugs, medicaments and biological substances
CPT/HCPCS: 80053; 80306; 82075; 83735; 84439; 84443; 85025; 85027; 87635; 96372; 96374; 96376; 99285

== ENCOUNTER 2023-09-30 20:57 | Inpatient (IN) | payer MEDICAID, OTHER ==
[2023-09-30] MEDS ORDERED: MAGNESIUM HYDROXIDE 2,400 MG/30 ML CUP PO PRN (21:07)
[2023-09-30] MEDS ORDERED: LORazepam 1 MG TAB PO PRN ×2 (21:07→21:15)
[2023-09-30] MEDS ORDERED: ONDANSETRON ODT 4 MG TAB PO PRN (21:10)
[2023-09-30] MEDS ORDERED: ALBUTEROL INHALER 60 PUFF/8 GM INHALER (MHU) INHALATION PRN (21:10)
[2023-09-30] MEDS ORDERED: LORazepam 2 MG/ML INJ IM PRN (21:15)
[2023-09-30] MEDS ORDERED: HALOPERIDOL LACTATE 5 MG/ML 1 ML VIAL IM PRN (21:16)
[2023-09-30] MEDS ORDERED: haloperidoL 5 MG TAB PO PRN (21:17)
[2023-09-30] MEDS ORDERED: NITROGLYCERIN SL TABS 0.4 MG TAB SUBLINGUAL PRN (22:00)
[2023-09-30] MEDS: ACAMPROSATE CALCIUM 333 MG TABLET.DR PO SCH (22:17)
[2023-10-01] MEDS: LEVOTHYROXINE 75 MCG TAB PO SCH (06:30)
[2023-10-01] MEDS: ACETAMINOPHEN TAB 325 MG TAB PO PRN (06:31)
[2023-10-01] MEDS: ACAMPROSATE CALCIUM 333 MG TABLET.DR PO SCH ×3 (08:32→20:57)
[2023-10-01] MEDS: amLODIPine 2.5 MG TAB PO SCH (08:32)
[2023-10-01] MEDS: THIAMINE 100 MG TAB PO SCH (08:33)
[2023-10-01] MEDS: LORATADINE 10 MG TAB PO SCH (08:33)
[2023-10-01] MEDS: MULTIVITAMINS, THERA 1 EACH TAB PO SCH (08:33)
[2023-10-01] MEDS: ESCITALOPRAM 20 MG TAB PO SCH (08:33)
[2023-10-01] MEDS: FOLIC ACID 1 MG TAB PO SCH (08:33)
[2023-10-01] MEDS ORDERED: ARIPiprazole 5 MG TAB PO SCH (09:00)
[2023-10-01] MEDS ORDERED: TRIAMCINOLONE 0.1% CREAM 80 GM TUBE TOPICAL PRN (09:41)
--- NOTE | 2023-10-01 10:03 | P.HP ---
Psychiatric H&P - . H&P Date: 10/01/23 History & Physical: Allergies Allergy/AdvReac Type Severity Reaction Status Date / Time clindamycin Allergy Unknown Rash/Hives Verified 09/27/23 15:33 acetylcysteine AdvReac Anaphylaxis Verified 09/27/23 15:33 From Mucomyst citalopram From Celexa AdvReac Hallucinati Verified 09/27/23 15:33 ons diphenhydramine HCl AdvReac Rapid Verified 09/27/23 15:33 From Benadryl Heart Rate Vital Signs Temp 98.1 F 10/01/23 06:34 Pulse 79 10/01/23 08:35 Resp 16 10/01/23 06:34 BP 113/77 10/01/23 08:35 Pulse Ox 98 10/01/23 06:34 FiO2 Intake & Output 09/30/23 10/01/23 10/01/23 18:59 06:59 18:59 Weight 77.111 kg 10/01/23 09:37 IDENTIFYING DATA: This patient is a 62-year-old female with significant history of alcohol use disorder c/o acute alcohol withdrawal, depression and SI, she currently lives with a roommate in a house, she is she has no kids. HISTORY OF PRESENT ILLNESS: patient was seen by underwriter solicitation director for psych consultation on the medical floors on 09/30 and as per note "The patient presented to the hospital on 09/27 for acute alcohol withdrawal and depression and suicidal ideations. Patient's urine drug screen was positive for benzodiazepines. She apparently was claiming that she is drinking over a pint and a half of vodka a day. Claims her last drink was the afternoon before coming into the hospital. She was endorsing significant alcohol withdrawal symptoms. Patient had a sitter at her side the time of the evaluation. Patient was agreeable to speak to underwriter solicitation director today, she appeared to have a soft tone of voice, states that she is feeling depressed and anxious. Claims that she has been struggling significantly with her bipolar disorder. States that she has "ups and downs". States she started feeling suicidal again before coming into the hospital. States that she has mainly been struggling with alcohol and feels not rehab has not been helping. She also claims that she feels her medications of not been helping as well was agreeable to trying new medications. States that she is still having withdrawal symptoms including shaking and anxiety. States that the holidays have been very stressful for her, she is feeling alone and isolated and was sad about her living situation. States that she has been grieving her who 4 years ago. States that her anxiety level is high, sleep is poor appetite is poor. Claims that she feels overwhelmed, hopeless and helpless. She is not reporting any auditory or visual hallucinations. She is denying any current suicidal or homicidal ideations intent or plan however does endorse fleeting SI. She denies any paranoia or other delusions." Patient was seen today in agreeable to speak with underwriter solicitation director today for psychiatric admission. She appears to have mild improvement in her hygiene today and grooming. She continues to speak in a soft tone of voice. Continues to state that she is feeling depressed and struggling with alcohol. Claims that her withdrawal symptoms had mildly been improving since yesterday. We spoke about several different medication options. She was agreeable to get restarted back on Lamictal and once remain on Lexapro and trazodone as this combination has helped her in the past. We spoke about different strategies to help her with sobriety. She is currently on acamprosate. Claims that she slept a bit better last night. Claims her appetite is poor. At this time she is denying any auditory or visual hallucinations. Denying any suicidal or homicidal ideations intent or plan. PAST PSYCHIATRIC HISTORY: Patient states that he has previously diagnosed bipolar 2 disorder and alcohol use disorder. The patient reports that she does well on her current regimen of Abilify, Lamictal, Lexapro, and trazodone. She is currently open with [facility]. She has had prior psychiatric admissions with the last one being in December 2022 on [address]. She does report one prior attempt at suicide by jumping in front of a train in the distant past. PAST MEDICAL HISTORY: Past Medical History: Asthma, Cancer, Hypertension, Thyroid Disorder Additional Past Medical History / Comment(s): History of goiter status post thyroidectomy, questionable history of thyroid cancer although this is not clear, bipolar disorder, depression, history of suicidal ideations, history of drug overdose, alcoholism, seasonal rhinitis, psoriasis, breast cysts, history of broken toes in the right foot, hypertension, History of Any Multi-Drug Resistant Organisms: None Reported Past Surgical History: No Surgical Hx Reported Additional Past Surgical History / Comment(s): Thyroidectomy 2000, SKIN NEVI REMOVED Past Anesthesia/Blood Transfusion Reactions: Previous Problems w/ Anesthesia, Postoperative Nausea & Vomiting (PONV) Additional Past Anesthesia/Blood Transfusion Reaction / Comment(s): patient states she is homeless. Pt is normally independent. Pt is an alcoholic. She is feeling more depressed lately and ashamed of her alcoholism. PT STATED SHE IS A BINGE DRINKER AND IS A BLACK OUT DRINKER,THINKS SHE STARTED DRINKING 4-5 DAYS AGO 3 PINTS A DAY AND WHEN COMING DOWN DRANK SUAVE HAIR SPRAY Pt no longer has a drivers license- she has had 2 DUI's. 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 She is seen at [facility]. Past Psychological History: Anxiety, Bipolar, Depression Smoking Status: Never smoker Past Alcohol Use History: Abuse, Daily, Heavy Past Drug Use History: None Reported ALLERGIES: as per EMR CHEMICAL DEPENDENCY HISTORY: as per HPI. FAMILY PSYCHIATRIC/SUBSTANCE USE HISTORY: denies SOCIAL HISTORY: Patient was born and raised in [place], [place]. She is after her second 6 years ago. She has no children. She is currently unemployed. She lives in her house with her roomates. 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 MENTAL STATUS EXAM: General Appearance: Patient appears to be have calderon hair, glasses, stated age is alert, pleasant, and tends to be cooperative. Patient appears to have fair hygiene and grooming wearing hospital gown with fair eye contact. Behavior: Patient is calmly sitting on the chair without any agitated behavior. attempts to cooperate, appears depressed Speech: Patient's speech is fluent and nonpressured. hesitant, soft tone Mood/Affect: Patient reports their mood is "depressed and anxious", affect is congruent and constricted Suicidality/Homicidality: Patient vehemently denies any current suicidal or homicidal ideation Perceptions: Patient denies any visual hallucinations and denies any auditory hallucinations Though content/process: There is no evidence of any delusional thought content and thought process is linear. Memory and concentration: AOX3, grossly intact for the purposes of this session. Can spell "WORLD" backwards Judgment and insight: Poor STRENGTHS/WEAKNESSES: strength is that patient is resilient. Weakness is that patient has poor judgment and is impulsive INTELLECT: average IMPRESSIONS: Bipolar disorder, current episode depressed Alcohol use disorder, severe dependence with alcohol withdrawal PLAN: -Patient is admitted under voluntary status to MHU for stabilization of psychiatric symptoms and safety. Patient has signed adult voluntary form and medication consent and is placed in patient's chart. -Medications : Librium scheduled 10 mg 4 times a day for alcohol withdrawal and continue to taper. Acamprosate 666 mg 3 times a day for alcohol cravings. Continue with Lexapro 20 mg daily for mood/anxiety. Trazodone 150 mg daily at bedtime for sleep/mood. Lamictal 25 mg twice a day for mood stabilization/depression. Spoke with patient in depth about monitoring for a rash and to let staff know if this does occur. -Ativan and Haldol PRN for agitation/aggression -Started thiamine, MVM for etoh use -CIWA protocol with Ativan PRN for ETOH withdrawal -Patient was counselled on substance abuse and desired to cut back on use -Patient was informed of the risks, benefits and side effects of the medication and patient verbally consented to taking the medications. Patient signed med consent form and was placed in chart. -Internal Medicine consult to perform medical evaluation and physical. -NRT - non-smoker -SW on board for discharge planning. Encourage patient to participate in groups to work on coping skills. 10/01/23 09:58 10/01/23 10:02
[2023-10-01] MEDS: IBUPROFEN 400 MG TAB PO PRN (12:52)
[2023-10-01] MEDS: lamoTRIgine 25 MG TAB PO SCH (20:57)
[2023-10-01] MEDS: traZODone HCL 50 MG TAB PO SCH (20:57)
[2023-10-01 23:12] LABS: Chol/HDL Ratio 3.44 Ratio
[2023-10-02] MEDS: LEVOTHYROXINE 75 MCG TAB PO SCH (06:35)
[2023-10-02] MEDS: ACAMPROSATE CALCIUM 333 MG TABLET.DR PO SCH ×3 (08:43→20:45)
[2023-10-02] MEDS: amLODIPine 2.5 MG TAB PO SCH (08:43)
[2023-10-02] MEDS: ESCITALOPRAM 20 MG TAB PO SCH (08:44)
[2023-10-02] MEDS: lamoTRIgine 25 MG TAB PO SCH ×3 (08:44→20:45)
[2023-10-02] MEDS: MULTIVITAMINS, THERA 1 EACH TAB PO SCH (08:44)
[2023-10-02] MEDS: LORATADINE 10 MG TAB PO SCH (08:44)
[2023-10-02] MEDS: THIAMINE 100 MG TAB PO SCH (08:44)
[2023-10-02] MEDS: FOLIC ACID 1 MG TAB PO SCH (08:45)
[2023-10-02] MEDS: IBUPROFEN 400 MG TAB PO PRN ×2 (08:48→16:26)
[2023-10-02] MEDS ORDERED: FLUTICASONE 50MCG/SPRAY NASAL 16GM EA NOSTRIL PRN (10:02)
--- NOTE | 2023-10-02 10:24 | P.PN ---
Progress Note - Text Progress Note Date: 10/02/23 Interval history: Patient states that she is doing a bit better today, states that her withdrawal symptoms and also been improving since yesterday. States that she was able to sleep last night and it better. We spoke about decreasing the Librium which she is okay with. Claims that she is trying to go to some groups however been mainly seen isolating in her room. States that her mood and anxiety. Gradually improving. She is denying any side effects from medications at this time. Currently denying any suicidal or homicidal ideations and no plan. Denying any auditory or visual hallucinations. Interval history: General Appearance: Patient appears to be have calderon hair, glasses, stated age is alert, pleasant, and tends to be cooperative. Patient appears to have fair hygiene and grooming wearing hospital gown with fair eye contact. Behavior: Patient is calmly sitting on the chair without any agitated behavior. attempts to cooperate Speech: Patient's speech is fluent and nonpressured. hesitant, soft tone, improving Mood/Affect: Patient reports their mood is improving mildly, affect is congruent and constricted home on improving Suicidality/Homicidality: Patient vehemently denies any current suicidal or homicidal ideation Perceptions: Patient denies any visual hallucinations and denies any auditory hallucinations Though content/process: There is no evidence of any delusional thought content and thought process is linear. Memory and concentration: AOX3, grossly intact for the purposes of this session. Judgment and insight: Poor, improving markedly IMPRESSIONS: Bipolar disorder, current episode depressed Alcohol use disorder, severe dependence with alcohol withdrawal PLAN: -Patient is admitted under voluntary status to MHU for stabilization of psychiatric symptoms and safety. Patient has signed adult voluntary form and medication consent and is placed in patient's chart. -Medications : Decreased Librium scheduled 10 mg 3 times a day for alcohol withdrawal and continue to taper. Acamprosate 666 mg 3 times a day for alcohol cravings. Continue with Lexapro 20 mg daily for mood/anxiety. Trazodone 150 mg daily at bedtime for sleep/mood. increase Lamictal 25 mg tid for mood stabilization/depression. Spoke with patient in depth about monitoring for a r anthony and to let staff know if this does occur. -Ativan and Haldol PRN for agitation/aggression -thiamine, MVM for etoh use -CIWA protocol with Ativan PRN for ETOH withdrawal -NRT - non-smoker -SW on board for discharge planning. Encourage patient to participate in groups to work on coping skills. possible discharge tuesday if patient continues to improve. will continue to offer rehab and other [facility] treatment options.
[2023-10-02] MEDS: FLUTICASONE 50MCG/SPRAY NASAL 16GM EA NOSTRIL SCH (13:09)
[2023-10-02] MEDS: traZODone HCL 50 MG TAB PO SCH (20:45)
[2023-10-03] MEDS: LEVOTHYROXINE 75 MCG TAB PO SCH (05:15)
[2023-10-03] MEDS: IBUPROFEN 400 MG TAB PO PRN ×2 (05:16→15:47)
[2023-10-03] MEDS: ACAMPROSATE CALCIUM 333 MG TABLET.DR PO SCH ×3 (08:31→20:30)
[2023-10-03] MEDS: lamoTRIgine 25 MG TAB PO SCH ×3 (08:31→20:30)
[2023-10-03] MEDS: FLUTICASONE 50MCG/SPRAY NASAL 16GM EA NOSTRIL SCH (08:31)
[2023-10-03] MEDS: MULTIVITAMINS, THERA 1 EACH TAB PO SCH (08:32)
[2023-10-03] MEDS: FOLIC ACID 1 MG TAB PO SCH (08:32)
[2023-10-03] MEDS: LORATADINE 10 MG TAB PO SCH (08:32)
[2023-10-03] MEDS: amLODIPine 2.5 MG TAB PO SCH (08:32)
[2023-10-03] MEDS: ESCITALOPRAM 20 MG TAB PO SCH (08:32)
[2023-10-03] MEDS: THIAMINE 100 MG TAB PO SCH (08:32)
[2023-10-03] MEDS: MAG HYDROX/AL HYDROX/SIMETH 30 ML CUP PO PRN (10:27)
--- NOTE | 2023-10-03 11:35 | P.PN ---
Progress Note - Text Progress Note Date: 10/03/23 Interval history: Patient was seen in the hallway, and agreeable to speak with proposal writer in the off ice. Patient states that she is doing really well today, and feels better today than she's felt in months. She feels hopeful. States that her energy level is great, and is going to groups, and sharing. States that her withdrawal symptoms are improving. States that she was able to very sleep last night, and her appetite is "too good". States that her mood and anxiety is gradually improving. Encouraged to attend AA meeting, upon discharge. She is denying any side effects from medications at this time. Currently denying any suicidal or homicidal ideations and no plan. Denying any auditory or visual hallucinations. Interval history: General Appearance: Patient appears to be have calderon hair, glasses, stated age is alert, pleasant, and tends to be cooperative. Patient dressed in street clothes. Patient appears to have fair hygiene and grooming wearing hospital gown with fair eye contact. Behavior: Patient is calmly sitting on the chair without any agitated behavior. attempts to cooperate Speech: Patient's speech is fluent and nonpressured. hesitant, soft tone, improving Mood/Affect: Patient reports their mood is improving mildly, affect is congruent and constricted mildly improving Suicidality/Homicidality: Patient vehemently denies any current suicidal or homicidal ideation Perceptions: Patient denies any visual hallucinations and denies any auditory hallucinations Though content/process: There is no evidence of any delusional thought content and thought process is linear. Memory and concentration: AOX3, grossly intact for the purposes of this session. Judgment and insight: Poor, improving mildly IMPRESSIONS: Bipolar disorder, current episode depressed Alcohol use disorder, severe dependence with alcohol withdrawal PLAN: -Patient is admitted under voluntary status to MHU for stabilization of psychiatric symptoms and safety. Patient has signed adult voluntary form and medication consent and is placed in patient's chart. -Medications : Librium scheduled 10 mg 3 times a day for alcohol withdrawal and continue to taper again tomorrow. Acamprosate 666 mg 3 times a day for alcohol cravings. Lexapro 20 mg daily for mood/anxiety. Trazodone 150 mg daily at bedtime for sleep/mood. Lamictal 25 mg tid for mood stabilization/depression. Spoke with patient in depth about monitoring for a rash and to let staff know if this does occur. -Ativan and Haldol PRN for agitation/aggression -thiamine, MVM for etoh use -CIWA protocol with Ativan PRN for ETOH withdrawal -NRT - non-smoker -SW on board for discharge planning. Encourage patient to participate in groups to work on coping skills. possible discharge likely -Tuesday. Spoke with patient about rehab however she is declining at this time and would rather go to [facility] into AA and virtual meetings.
[2023-10-03] MEDS: traZODone HCL 50 MG TAB PO SCH (20:30)
[2023-10-04] MEDS: LEVOTHYROXINE 75 MCG TAB PO SCH (06:39)
[2023-10-04] MEDS: FLUTICASONE 50MCG/SPRAY NASAL 16GM EA NOSTRIL SCH (08:00)
[2023-10-04] MEDS: ACAMPROSATE CALCIUM 333 MG TABLET.DR PO SCH ×3 (08:00→20:50)
[2023-10-04] MEDS: lamoTRIgine 25 MG TAB PO SCH ×3 (08:01→20:51)
[2023-10-04] MEDS: IBUPROFEN 400 MG TAB PO PRN ×2 (08:01→16:10)
[2023-10-04] MEDS: LORATADINE 10 MG TAB PO SCH (08:01)
[2023-10-04] MEDS: ESCITALOPRAM 20 MG TAB PO SCH (08:02)
[2023-10-04] MEDS: amLODIPine 2.5 MG TAB PO SCH (08:02)
[2023-10-04] MEDS: FOLIC ACID 1 MG TAB PO SCH (08:02)
[2023-10-04] MEDS: MULTIVITAMINS, THERA 1 EACH TAB PO SCH (08:02)
[2023-10-04] MEDS: THIAMINE 100 MG TAB PO SCH (08:02)
[2023-10-04] MEDS: MAG HYDROX/AL HYDROX/SIMETH 30 ML CUP PO PRN (12:12)
--- NOTE | 2023-10-04 12:18 | P.PN ---
Progress Note - Text Progress Note Date: 10/04/23 Interval history: Patient was seen in the hallway, and agreeable to speak with technical document writer in the off ice. Patient states that she is doing very well today, continues to state that she's not felt this great in over a year.. She feels hopeful. States that her energy level is great, and is going to groups, and sharing. States that her withdrawal symptoms are subsided. States that she was able to very sleep last night, feels very rested, and her appetite is great. States that her mood and anxiety is gradually improving. She is denying any side effects from medications at this time. Currently denying any suicidal or homicidal ideations and no plan. Denying auditory or visual hallucinations. Interval history: General Appearance: Patient appears to be have calderon hair, glasses, stated age is alert, pleasant, and tends to be cooperative. Patient dressed in street clothes. Patient appears to have good hygiene and grooming with fair eye contact. Behavior: Patient is calmly sitting on the chair without any agitated behavior. attempts to cooperate Speech: Patient's speech is fluent and nonpressured. hesitant, soft tone, improving Mood/Affect: Patient reports their mood is improving mildly, affect is congruent and constricted mildly improving Suicidality/Homicidality: Patient vehemently denies any current suicidal or homicidal ideation Perceptions: Patient denies any visual hallucinations and denies any auditory hallucinations Though content/process: There is no evidence of any delusional thought content and thought process is linear. Memory and concentration: AOX3, grossly intact for the purposes of this session. Judgment and insight: improving mildly IMPRESSIONS: Bipolar disorder, current episode depressed Alcohol use disorder, severe dependence with alcohol withdrawal PLAN: -Patient is admitted under voluntary status to MHU for stabilization of psychiatric symptoms and safety. Patient has signed adult voluntary form and medication consent and is placed in patient's chart. -Medications : decrease Librium 10 mg 2 times a day for alcohol withdrawal last dose tomorrow morning 10/05. Acamprosate 666 mg 3 times a day for alcohol cravings. Lexapro 20 mg daily for mood/anxiety. Trazodone 150 mg daily at bedtime for sleep/mood. Increase Lamictal 100mg daily for mood stab ilization/depression. patient is still denying any rash. -Ativan and Haldol PRN for agitation/aggression -thiamine, MVM for etoh use -CIWA protocol with Ativan PRN for ETOH withdrawal -NRT - non-smoker -SW on board for discharge planning. Encourage patient to participate in groups to work on coping skills. possible discharge likely . Spoke with patient about rehab however she is declining at this time and would rather go to [facility] into AA and virtual meetings.
[2023-10-04] MEDS: traZODone HCL 50 MG TAB PO SCH ×2 (20:50→20:53)
[2023-10-05] MEDS: LEVOTHYROXINE 75 MCG TAB PO SCH (06:05)
[2023-10-05 06:34] VITALS: RESP 16
[2023-10-05] MEDS: FLUTICASONE 50MCG/SPRAY NASAL 16GM EA NOSTRIL SCH (08:38)
[2023-10-05] MEDS: amLODIPine 2.5 MG TAB PO SCH (08:38)
[2023-10-05] MEDS: ACAMPROSATE CALCIUM 333 MG TABLET.DR PO SCH ×3 (08:38→20:32)
[2023-10-05] MEDS: ESCITALOPRAM 20 MG TAB PO SCH (08:39)
[2023-10-05] MEDS: FOLIC ACID 1 MG TAB PO SCH (08:39)
[2023-10-05] MEDS: lamoTRIgine 100 MG TAB PO SCH (08:39)
[2023-10-05] MEDS: LORATADINE 10 MG TAB PO SCH (08:39)
[2023-10-05] MEDS: THIAMINE 100 MG TAB PO SCH (08:39)
[2023-10-05] MEDS: MULTIVITAMINS, THERA 1 EACH TAB PO SCH (08:39)
[2023-10-05] MEDS: IBUPROFEN 400 MG TAB PO PRN ×2 (08:42→15:52)
--- NOTE | 2023-10-05 10:09 | P.PN ---
Progress Note - Text Progress Note Date: 10/05/23 Interval history: Patient was seen in group, and agreeable to speak with director underwriter sales in the office. P janice states that she is doing great today, continues to state that she's not felt this great in over a year.. She feels hopeful and optimistic. States that her energy level is great, and is going to groups, and sharing. States that her withdrawal symptoms are completely subsided. States that she was able to sleep well last night, feels very rested, and her appetite is great. States that her mood and anxiety is gradually improving. She is denying any side effects from medications at this time. Currently denying any suicidal or homicidal ideations and no plan. Denying auditory or visual hallucinations. Interval history: General Appearance: Patient appears to be have calderon hair, glasses, stated age is alert, pleasant, and tends to be cooperative. Patient dressed in street clothes. Patient appears to have good hygiene and grooming with fair eye contact. Behavior: Patient is calmly sitting on the chair without any agitated behavior. attempts to cooperate Speech: Patient's speech is fluent and nonpressured. hesitant, soft tone, improving Mood/Affect: Patient reports their mood is optimistic, affect is congruent and constricted improving Suicidality/Homicidality: Patient vehemently denies any current suicidal or homicidal ideation Perceptions: Patient denies any visual hallucinations and denies any auditory hallucinations Though content/process: There is no evidence of any delusional thought content and thought process is linear. Memory and concentration: AOX3, grossly intact for the purposes of this session. Judgment and insight: improving future orientated IMPRESSIONS: Bipolar disorder, current episode depressed Alcohol use disorder, severe dependence with alcohol withdrawal PLAN: -Patient is admitted under voluntary status to MHU for stabilization of psychiatric symptoms and safety. Patient has signed adult voluntary form and medication consent and is placed in patient's chart. -Medications :discontinue Librium. Acamprosate 666 mg 3 times a day for alcohol cravings. Lexapro 20 mg daily for mood/anxiety. Trazodone 150 mg daily at bedtime for sleep/mood. discontinue Lamictal patient is still denying any rash. -Ativan and Haldol PRN for agitation/aggression -thiamine, MVM for etoh use -d/c CIWA protocol with Ativan PRN today -NRT - non-smoker -SW on board for discharge planning. Encourage patient to participate in groups to work on coping skills. possible discharge likely tomorrow. Spoke with patient about rehab however she is declining at this time and would rather go to [facility] into AA and virtual meetings.
[2023-10-05] MEDS: ACETAMINOPHEN TAB 325 MG TAB PO PRN (12:31)
[2023-10-05] MEDS: traZODone HCL 50 MG TAB PO SCH (20:32)
[2023-10-06] MEDS: LEVOTHYROXINE 75 MCG TAB PO SCH (06:42)
[2023-10-06 07:39] VITALS: TEMP 97.3
[2023-10-06] MEDS: FLUTICASONE 50MCG/SPRAY NASAL 16GM EA NOSTRIL SCH (07:58)
[2023-10-06] MEDS: MULTIVITAMINS, THERA 1 EACH TAB PO SCH (07:58)
[2023-10-06] MEDS: ACAMPROSATE CALCIUM 333 MG TABLET.DR PO SCH (07:58)
[2023-10-06] MEDS: lamoTRIgine 100 MG TAB PO SCH (07:59)
[2023-10-06] MEDS: ESCITALOPRAM 20 MG TAB PO SCH (07:59)
[2023-10-06] MEDS: LORATADINE 10 MG TAB PO SCH (07:59)
[2023-10-06] MEDS: THIAMINE 100 MG TAB PO SCH (07:59)
[2023-10-06] MEDS: amLODIPine 2.5 MG TAB PO SCH (07:59)
[2023-10-06] MEDS: FOLIC ACID 1 MG TAB PO SCH (07:59)
[2023-10-06] MEDS: IBUPROFEN 400 MG TAB PO PRN (08:00)
[2023-10-06 08:04] VITALS: BP 115/73; PULSE 75
--- NOTE | 2023-10-06 09:38 | P.DS ---
Providers Date of admission: 09/30/23 21:01 Attending physician: Rahul Colón MD Primary care physician: [facility] Diagnosis(es) (1) Bipolar disorder current episode depressed Current Visit: Yes Status: Acute Priority: High (2) Alcohol use disorder, severe, dependence Current Visit: Yes Status: Acute Priority: High Hospital Course: Admission HPI: Admission note was completed by insurance writer "patient was seen by insurance writer for psych consultation on the medical floors on 09/30 and as per note "The patient presented to the hospital on 09/27 for acute alcohol withdrawal and depression and suicidal ideations. Patient's urine drug screen was positive for benzodiazepines. She apparently was claiming that she is drinking over a pint and a half of vodka a day. Claims her last drink was the afternoon before com ing into the hospital. She was endorsing significant alcohol withdrawal symptoms. Patient had a sitter at her side the time of the evaluation. Patient was agreeable to speak to insurance writer today, she appeared to have a soft tone of voice, states that she is feeling depressed and anxious. Claims that she has been struggling significantly with her bipolar disorder. States that she has "ups and downs". States she started feeling suicidal again before coming into the hospital. States that she has mainly been struggling with alcohol and feels not rehab has not been helping. She also claims that she feels her medications of not been helping as well was agreeable to trying new medications. States that she is still having withdrawal symptoms including shaking and anxiety. States that the holidays have been very stressful for her, she is feeling alone and isolated and was sad about her living situation. States that she has been grieving her who 4 years ago. States that her anxiety level is high, sleep is poor appetite is poor. Claims that she feels overwhelmed, hopeless and helpless. She is not reporting any auditory or visual hallucinations. She is denying any current suicidal or homicidal ideations intent or plan however does endorse fleeting SI. She denies any paranoia or other delusions." Patient was seen today in agreeable to speak with insurance writer today for psychiatric admission. She appears to have mild improvement in her hygiene today and grooming. She continues to speak in a soft tone of voice. Continues to state that she is feeling depressed and struggling with alcohol. Claims that her withdrawal symptoms had mildly been improving since yesterday. We spoke about several different medication options. She was agreeable to get restarted back on Lamictal and once remain on Lexapro and trazodone as this combination has helped her in the past. We spoke about different strategies to help her with sobriety. She is currently on acamprosate. Claims that she slept a bit better last night. Claims her appetite is poor. At this time she is denying any auditory or visual hallucinations. Denying any suicidal or homicidal ideations intent or plan." Hospital course: Upon admission to the unit patient was directable and agreeable to commence treatment and signed adult voluntary form. Patient got along well with other patients on the unit and followed unit protocol. Patient was compliant with the medications and denied any side effects throughout hospital course. Patient was started on acamprosate 666 mg 3 times a day from alcohol cravings, Lexapro was continued 20 mg daily for mood/anxiety, Lamictal was increased to 100 mg daily for mood stabilization/depression, Librium was started scheduled and gradually tapered down for alcohol withdrawal. Patient was also on [facility] protocol with when necessary Ativan. Trazodone 150 mg daily at bedtime for mood/sleep. Patient spoke of her stressors and engaged in therapy both group and individual. Patient was also seen by medical team for history and physical exam. Throughout the course of the hospitalization patient gradually improved with regards to mood, anxiety, suicidal thoughts, alcohol cravings, sleep and returned back to their baseline level of functioning. On the day of discharge patient denied any suicidal or homicidal ideations intent or plan denied any auditory or visual hallucinations. Patient endorsed wanting to live for her health and her sobriety. The patient denied any access to guns or weapons. Patient denied any paranoia and did not endorse any delusions. Patient does have a significant history of substance abuse and was counseled on abstaining from all substances including alcohol and marijuana. Patient was offered however declined inpatient substance-abuse rehab. Patient elected to do outpatient substance use treatment program through [facility]. Patient also claims that she would prefer to get enrolled back in AA meetings and also individual therapy. Patient was also counseled on the medications and need for regular compliance and was encouraged to follow-up with their outpatient appointment for mental health and also for primary care. Mental status exam: General Appearance: Patient appears to be stated age is alert, pleasant, and cooperative. Patient is in no acute distress and has improved hygiene and grooming Behavior: Patient is calmly seated without any agitated behavior. Speech: Patient's speech is fluent and nonpressured. Mood/Affect: Patient reports their mood is "better", affect is congruent and euthymic. Suicidality/Homicidality: Patient denies having any suicidal or homicidal ideation intent or plan. Perceptions: Patient denies any auditory or visual hallucinations. Though content/process: There is no evidence of any delusional thought content and thought process is linear and goal-directed. more future oriented Memory and concentration: AOX3, grossly intact for the purposes of this session. Can spell "WORLD" backwards correctly. Judgment and insight: improved with guarded prognosis Impression: [Bipolar disorder, current episode depressed Alcohol use disorder, severe dependence with alcohol withdrawal Plan: -Continue with discharge today as patient has improved and stabilized psychiatrically and is not currently an imminent threat to herself and/or others. Patient will remain at chronically elevated risk for harm to self and/or others due to her impulsivity and etoh abuse. -Continue medications: Trazodone 150 mg daily at bedtime for sleep/mood, Librium was discontinued. Acamprosate 666 mg 3 times a day for alcohol cravings, Lexapro 20 mg daily for mood/anxiety, Lamictal 100 mg daily for mood stabilization/depression. [employer] [facility] Worker spoke with patient about monitoring for a rash and to seek urgent medical attention if this does occur and discontinue Lamictal, she verbally understood and agreed. -Patient was counseled on the need for medication compliance and appropriate follow-up at mental health and also primary care for medical issues. Patient verbalized understanding and agreed. -Social work to help coordinate patient's discharged today back home. Patient will have close follow-up with [facility]. Social work also to arrange for patients follow up appointments with [facility] for psychiatric care along with follow up with primary care provider. -Patient counseled on abstaining from recreational drugs and marijuana and alcohol. Was informed/educated on the adverse effects on their physical and mental health. Patient verbally agreed and understood. -Patient was instructed to return to the hospital or seek immediate medical care if their psychiatric or medical symptoms do worsen or reoccur. Allergies Allergy/AdvReac Type Severity Reaction Status Date / Time clindamycin Allergy Unknown Rash/Hives Verified 09/27/23 15:33 acetylcysteine AdvReac Anaphylaxis Verified 09/27/23 15:33 From Mucomyst citalopram From Celexa AdvReac Hallucinati Verified 09/27/23 15:33 ons diphenhydramine HCl AdvReac Rapid Verified 09/27/23 15:33 From Benadryl Heart Rate Laboratory Results Estimated Ave Glu mg/dL 108 mg/dL 10/01/23 10:42 Hemoglobin A1c 5.4 % (<=6.0) 10/01/23 10:42 Triglycerides 81.00 mg/dL (0.00-149.00) 10/01/23 10:42 Cholesterol 254.00 mg/dL (0.00-200.00) H 10/01/23 10:42 LDL Cholesterol, Calc 164.0 mg/dL (0.0-131.0) H 10/01/23 10:42 VLDL Cholesterol, Calc 16.20 mg/dL (5.00-40.00) 10/01/23 10:42 HDL Cholesterol 73.80 mg/dL (40.00-60.00) H 10/01/23 10:42 Cholesterol/HDL Ratio 3.44 Ratio 10/01/23 10:42 TSH 7.990 mIU/L (0.465-4.680) H 10/01/23 10:42 Vital Signs Temp 97.3 F L 10/06/23 06:48 Pulse 75 10/06/23 08:01 Resp 16 10/06/23 06:48 BP 115/73 10/06/23 08:01 Pulse Ox 95 10/05/23 06:09 FiO2 Patient Condition at Discharge: Stable Plan - Discharge Summary Discharge Rx Participant: No New Discharge Prescriptions: New Fluticasone Nasal Grandin [Flonase Nasal Grandin] 2 spray EA NOSTRIL DAILY ml lamoTRIgine [LaMICtal] 100 mg PO DAILY 30 Days #30 tab Escitalopram [Lexapro] 20 mg PO DAILY 30 Days #30 tab Ibuprofen [Motrin] 400 mg PO Q8H PRN tab PRN Reason: Moderate To Severe Pain (4-10) Multivitamins, Thera [Multivitamin (formulary)] 1 each PO DAILY 30 Days #30 tab traZODone HCL 150 mg PO HS 30 Days #30 tablet Continue Acetaminophen Tab [Tylenol] 650 mg PO Q6HR PRN tab PRN Reason: Mild Pain Or Fever > 100.5 Ondansetron Odt [Zofran ODT] 4 mg PO Q8HR PRN #10 tab PRN Reason: Nausea Omeprazole Magnesium [PriLOSEC OTC] 20 mg PO Acamprosate Calcium [Campral] 666 mg PO TID 30 Days #120 tab amLODIPine [Norvasc] 2.5 mg PO DAILY 30 Days #30 tab Levothyroxine Sodium [Synthroid] 150 mcg PO DAILY 30 Days #30 tab Thiamine [Vitamin B-1] 100 mg PO DAILY 30 Days #30 tab Albuterol Inhaler [Ventolin Hfa Inhaler] 2 puff INHALATION RT-Q6H PRN #1 each PRN Reason: Shortness Of Breath Nitroglycerin Sl Tabs [Nitrostat] 0.4 mg SL Q5M PRN PRN Reason: Chest Pain Fexofenadine HCl [Debbi Allergy] 180 mg PO DAILY Triamcinolone 0.1% Cream [Kenalog 0.1% Cream] 1 applic TOPICAL BID PRN PRN Reason: psoriasis Folic Acid 1 mg PO DAILY 30 Days #30 tab Discontinued Escitalopram [Lexapro] 20 mg PO DAILY ARIPiprazole [Abilify] 5 mg PO DAILY Discharge Medication List Albuterol Inhaler [Ventolin Hfa Inhaler] 2 puff INHALATION RT-Q6H PRN #1 each 01/20/23 [Rx] Nitroglycerin Sl Tabs [Nitrostat] 0.4 mg SL Q5M PRN 05/18/23 [History] Acetaminophen Tab [Tylenol] 650 mg PO Q6HR PRN tab 07/19/23 [Rx] Ondansetron Odt [Zofran ODT] 4 mg PO Q8HR PRN #10 tab 08/04/23 [Rx] Fexofenadine HCl [Debbi Allergy] 180 mg PO DAILY 08/14/23 [History] Triamcinolone 0.1% Cream [Kenalog 0.1% Cream] 1 applic TOPICAL BID PRN 08/15/23 [History] Omeprazole Magnesium [PriLOSEC OTC] 20 mg PO 10/03/23 [History] Acamprosate Calcium [Campral] 666 mg PO TID 30 Days #120 tab 10/06/23 [Rx] Escitalopram [Lexapro] 20 mg PO DAILY 30 Days #30 tab 10/06/23 [Rx] Fluticasone Nasal Grandin [Flonase Nasal Grandin] 2 spray EA NOSTRIL DAILY ml 10/06/23 [Rx] Folic Acid 1 mg PO DAILY 30 Days #30 tab 10/06/23 [Rx] Ibuprofen [Motrin] 400 mg PO Q8H PRN tab 10/06/23 [Rx] Levothyroxine Sodium [Synthroid] 150 mcg PO DAILY 30 Days #30 tab 10/06/23 [Rx] Multivitamins, Thera [Multivitamin (formulary)] 1 each PO DAILY 30 Days #30 tab 10/06/23 [Rx] Thiamine [Vitamin B-1] 100 mg PO DAILY 30 Days #30 tab 10/06/23 [Rx] amLODIPine [Norvasc] 2.5 mg PO DAILY 30 Days #30 tab 10/06/23 [Rx] lamoTRIgine [LaMICtal] 100 mg PO DAILY 30 Days #30 tab 10/06/23 [Rx] traZODone HCL 150 mg PO HS 30 Days #30 tablet 10/06/23 [Rx] Follow up Appointment(s)/Referral(s): [facility] [Outside] - 10/07/23 8:00 am (10/07/2023 8:00AM - 9:00AM [facility] 10/10/2023 10:00AM - 11:00AM ALEXE[facility] 10/11/2023 9:30AM - 10:30AM [facility] ) Activity/Diet/Wound Care/Special Instructions: Avoid the use of street drugs and alcohol. Take all medications as prescribed. When you are in need of refills on your medications, please contact your medical provider and/or outpatient psychiatrist/provider to have this done. Please go to your scheduled outpatient appointment for aftercare treatment. If symptoms return or become worse, call the crisis line at and/or go to the nearest emergency room for evaluation. National Suicide Hotline 433. Discharge Disposition: HOME SELF-CARE
[2023-10-06] MEDS: MAG HYDROX/AL HYDROX/SIMETH 30 ML CUP PO PRN (12:01)
== END 2023-10-06 13:00 | disposition home or self-care (01) | DRG 753 ==
LOC: 3MHU 21:01
PROVIDERS: ADMIT Psychiatry & Neurology Psychiatry; ATTEND Psychiatry & Neurology Psychiatry
DX: F31.30 Bipolar disorder, current episode depressed, mild or moderate severity, unspecified (principal); F10.239 Alcohol dependence with withdrawal, unspecified; E89.0 Postprocedural hypothyroidism; F31.81 Bipolar II disorder; F41.9 Anxiety disorder, unspecified; I10 Essential (primary) hypertension; J45.909 Unspecified asthma, uncomplicated; R45.851 Suicidal ideations; Z56.0 Unemployment, unspecified; Z79.899 Other long term (current) drug therapy
CPT/HCPCS: 80061; 83036; 84443

== ENCOUNTER 2023-10-14 19:12 | Emergency (ER) | payer OTHER ==
--- NOTE | 2023-10-14 20:27 | ED ---
Psych HPI - General Source: police Mode of arrival: ambulatory <Tere Morton - Last Filed: 10/14/23 23:39> - General Source: RN notes reviewed, old records reviewed <MukeshkarlieroxaneDylon Dove - Last Filed: 10/19/23 02:43> - General Chief Complaint: Psychiatric Symptoms Stated Complaint: Mental Health Time Seen by Provider: 10/14/23 19:40 - History of Present Illness Initial Comments: 63-year-old female with past medical history of depression and alcohol abuse who presents to the emergency department requesting psychiatric evaluation. States that she has a long-standing history of depression and alcohol use. Today she was drinking and became depressed. She was concerned that she was going to harm herself and therefore called EMS. Patient arrives and is visibly intoxicated. States that she did not do anything to harm herself. Denies homicidal ideation. No hallucinations. No other alleviating, precipitating or modifying factors (Tere Morton) - Related Data Home Medications Medication Instructions Recorded Confirmed Nitroglycerin Sl Tabs [Nitrostat] 0.4 mg SL Q5M PRN 05/18/23 10/14/23 Fexofenadine HCl [Debbi Allergy] 180 mg PO DAILY 08/14/23 10/14/23 Triamcinolone 0.1% Cream [Kenalog 1 applic TOPICAL BID PRN 08/15/23 10/14/23 0.1% Cream] Omeprazole Magnesium [PriLOSEC OTC] 20 mg PO DAILY 10/03/23 10/14/23 Fluticasone Nasal [place] [Flonase 2 spr EA NOSTRIL DAILY 10/14/23 10/14/23 Nasal [place]] Multivitamins, Thera [Multivitamin 1 tab PO DAILY 10/14/23 10/14/23 (formulary)] Previous Rx's Medication Instructions Recorded Albuterol Inhaler [Ventolin Hfa 2 puff INHALATION RT-Q6H PRN #1 01/20/23 Inhaler] each Acetaminophen Tab [Tylenol] 650 mg PO Q6HR PRN tab 07/19/23 Ondansetron Odt [Zofran ODT] 4 mg PO Q8HR PRN #10 tab 08/04/23 Acamprosate Calcium [Campral] 666 mg PO TID 30 Days #120 tab 10/06/23 Escitalopram [Lexapro] 20 mg PO DAILY 30 Days #30 tab 10/06/23 Folic Acid 1 mg PO DAILY 30 Days #30 tab 10/06/23 Ibuprofen [Motrin] 400 mg PO Q8H PRN tab 10/06/23 Levothyroxine Sodium [Synthroid] 150 mcg PO DAILY 30 Days #30 tab 10/06/23 Thiamine [Vitamin B-1] 100 mg PO DAILY 30 Days #30 tab 10/06/23 amLODIPine [Norvasc] 2.5 mg PO DAILY 30 Days #30 tab 10/06/23 lamoTRIgine [LaMICtal] 100 mg PO DAILY 30 Days #30 tab 10/06/23 traZODone HCL 150 mg PO HS 30 Days #30 tablet 10/06/23 Allergies Allergy/AdvReac Type Severity Reaction Status Date / Time clindamycin Allergy Unknown Rash/Hives Verified 10/14/23 21:47 acetylcysteine AdvReac Anaphylaxis Verified 10/14/23 21:47 [From Mucomyst] citalopram [From Celexa] AdvReac Hallucinati Verified 10/14/23 21:47 ons diphenhydramine HCl AdvReac Rapid Verified 10/14/23 21:47 [From Benadryl] Heart Rate Review of Systems ROS Other: All systems not noted in ROS Statement are negative. <Tere Morton - Last Filed: 10/14/23 23:39> ROS Other: All systems not noted in ROS Statement are negative. <Dylon Patel - Last Filed: 10/19/23 02:43> ROS Statement: Those systems with pertinent positive or pertinent negative responses have been documented in the HPI. Past Medical History Past Medical History: Asthma, Cancer, Hypertension, Thyroid Disorder Additional Past Medical History / Comment(s): History of goiter status post thyroidectomy, questionable history of thyroid cancer although this is not clear, bipolar disorder, depression, history of suicidal ideations, history of drug overdose, alcoholism, seasonal rhinitis, psoriasis, breast cysts, history of broken toes in the right foot, History of Any Multi-Drug Resistant Organisms: None Reported Past Surgical History: No Surgical Hx Reported Additional Past Surgical History / Comment(s): Thyroidectomy 1999, SKIN NEVI REMOVED Past Anesthesia/Blood Transfusion Reactions: Previous Problems w/ Anesthesia, Postoperative Nausea & Vomiting (PONV) Additional Past Anesthesia/Blood Transfusion Reaction / Comment(s): Lives in a house with two roommates. ETOH. Pt no longer has a drivers license- she has had 2 DUI's. 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 She is seen at [facility]. Past Psychological History: Anxiety, Bipolar, Depression Smoking Status: Never smoker Past Alcohol Use History: Abuse, Daily Past Drug Use History: None Reported - Past Family History Father Family Medical History: Cancer Additional Family Medical History / Comment(s): Father at age 64 of esophageal cancer. Father was an alcoholic and had cirrhosis of the liver. Mother Family Medical History: Cancer Additional Family Medical History / Comment(s): Mother of breast cancer at age 42yrs. <Tere Morton - Last Filed: 10/14/23 23:39> General Exam Limitations: no limitations General appearance: alert, in no apparent distress, appears intoxicated Head exam: Present: atraumatic, normocephalic, normal inspection Eye exam: Present: normal appearance, PERRL, EOMI. Absent: scleral icterus, conjunctival injection, periorbital swelling ENT exam: Present: normal exam, mucous membranes moist Neck exam: Present: normal inspection. Absent: tenderness, meningismus, lymphadenopathy Respiratory exam: Present: normal lung sounds bilaterally. Absent: respiratory distress, wheezes, rales, rhonchi, stridor Cardiovascular Exam: Present: regular rate, normal rhythm, normal heart sounds. Absent: systolic murmur, diastolic murmur, rubs, gallop, clicks GI/Abdominal exam: Present: soft, normal bowel sounds. Absent: distended, tenderness, guarding, rebound, rigid Extremities exam: Present: normal inspection, full ROM, normal capillary refill. Absent: tenderness, pedal edema, joint swelling, calf tenderness Back exam: Present: normal inspection Neurological exam: Present: alert, oriented X3, CN II-XII intact Psychiatric exam: Present: depressed Skin exam: Present: warm, dry, intact, normal color. Absent: rash <Tere Morton - Last Filed: 10/14/23 23:39> Course Vital Signs 10/14/23 10/14/23 10/15/23 19:27 22:42 06:00 Temperature 98.1 F 97.9 F 98.2 F Pulse Rate 69 56 L 70 Respiratory 18 16 18 Rate Blood Pressure 98/64 102/79 118/70 O2 Sat by Pulse 95 96 99 Oximetry 10/15/23 10/15/23 07:32 12:01 Temperature 98.1 F 98.2 F Pulse Rate 78 78 Respiratory 18 16 Rate Blood Pressure 104/76 112/67 O2 Sat by Pulse 98 98 Oximetry Medical Decision Making <Tere Morton A - Last Filed: 10/14/23 23:39> <Dylon Patel - Last Filed: 10/19/23 02:43> - Medical Decision Making Was pt. sent in by a medical professional or institution (, PA, TURNER OFF, urgent care, hospital, or alf...) When possible be specific @ -No Did you speak to anyone other than the patient for history (EMS, parent, family, police, friend...)? What history was obtained from this source @ -Spoke with police and EMS Did you review nursing and triage notes (agree or disagree)? Why? @ -I reviewed and agree with nursing and triage notes Were old charts reviewed (outside hosp., previous admission, EMS record, old EKG, old radiological studies, urgent care reports/EKG's, alf records)? Report findings @ -No old charts were reviewed Differential Diagnosis (chest pain, altered mental status, abdominal pain women, abdominal pain men, vaginal bleeding, weakness, fever, dyspnea, syncope, headache, dizziness, GI bleed, back pain, seizure, CVA, palpatations, mental health, musculoskeletal)? @ -Differential Mental Health Depression, anxiety, bipolar, psychosis, schizophrenia, borderline personality, situational depression, adjustment disorder, behavioral disorder, brain tumor, malingering, substance abuse, encephalopathy, medication reaction, dementia, hypothyroidism, degenerative neurologic disorder, lupus.... This is not meant to be all-inclusive list EKG interpreted by me (3pts min.). @ -Not done X-rays interpreted by me (1pt min.). @ -None done CT interpreted by me (1pt min.). @ -None done U/S interpreted by me (1pt. min.). @ -None done What testing was considered but not performed or refused? (CT, X-rays, U/S, labs)? Why? @ -None What meds were considered but not given or refused? Why? @ -None Did you discuss the management of the patient with other professionals (professionals i.e. Dr., PA, TURNER OFF, lab, RT, psych nurse, social media job titles, abrasive worker, teacher, founder chairman and chief creative officer, case checker)? Give summary @ -EPS nurse Was smoking cessation discussed for >3mins.? @ -No Was critical care preformed (if so, how long)? @ -No Were there social determinants of health that impacted care today? How? (Homelessness, low income, unemployed, alcoholism, drug addiction, transportation, low edu. Level, literacy, decrease access to med. care, group home, rehab)? @ -No Was there de-escalation of care discussed even if they declined (Discuss DNR or withdrawal of care, Hospice)? DNR status @ -No What co-morbidities impacted this encounter? (DM, HTN, Smoking, COPD, CAD, Cancer, CVA, ARF, Chemo, Hep., AIDS, mental health diagnosis, sleep apnea, morbid obesity)? @ -Alcohol abuse, depression Was patient admitted / discharged? Hospital course, mention meds given and route, prescriptions, significant lab abnormalities, going to OR and other pertinent info. @ -Upon arrival patient is placed into room 7. A thorough history and physical exam was performed. Patient is intoxicated. We are awaiting her sobriety for EPS evaluation Undiagnosed new problem with uncertain prognosis? @ -No Drug Therapy requiring intensive monitoring for toxicity (Heparin, Nitro, Insulin, Cardizem)? @ -No Were any procedures done? @ -No Diagnosis/symptom? @ -Acute depression, chronic alcohol abuse Acute, or Chronic, or Acute on Chronic? @ -Acute Uncomplicated (without systemic symptoms) or Complicated (systemic symptoms)? @ -Complicated Side effects of treatment? @ -No Exacerbation, Progression, or Severe Exacerbation? @ -No Poses a threat to life or bodily function? How? (Chest pain, [place], [place], pneumonia, PE, COPD, DKA, ARF, appy, cholecystitis, CVA, Diverticulitis, Homicidal, Suicidal, threat to staff... and all critical care pts) @ -Possibly as patient is reporting depression with possible suicidal ideations (Tere Morton) Patient was awaited EPS evaluation. She was evaluated by EPS and felt to be safe for discharge. She signed a safety plan and has good follow-up with [facility]. (Dylon Patel) - Lab Data Lab Results 10/15/23 Range/Units 03:40 Urine Color Yellow Urine Appearance Clear (Clear) Urine pH 5.0 (5.0-8.0) Ur Specific [place] 1.015 (1.001-1.035) Urine Protein Negative (Negative) Urine Glucose (UA) Negative (Negative) Urine Ketones Negative (Negative) Urine Blood Negative (Negative) Urine Nitrite Negative (Negative) Urine Bilirubin Negative (Negative) Urine Urobilinogen <2.0 (<2.0) mg/dL Ur Leukocyte Esterase Negative (Negative) Urine Opiates Screen Not Detected (NotDetected) Ur Oxycodone Screen Not Detected (NotDetected) Urine Methadone Screen Not Detected (NotDetected) Ur Propoxyphene Screen Not Detected (NotDetected) Ur Barbiturates Screen Not Detected (NotDetected) U Tricyclic Antidepress Not Detected (NotDetected) Ur Phencyclidine Scrn Not Detected (NotDetected) Ur Amphetamines Screen Not Detected (NotDetected) U Methamphetamines Scrn Not Detected (NotDetected) U Benzodiazepines Scrn Detected H (NotDetected) Urine Cocaine Screen Not Detected (NotDetected) U Marijuana (THC) Screen Not Detected (NotDetected) Disposition Is patient prescribed a controlled substance at d/c from ED?: No <Tere Morton - Last Filed: 10/14/23 23:39> Is patient prescribed a controlled substance at d/c from ED?: No Time of Disposition: 11:08 <Dylon Patel - Last Filed: 10/19/23 02:43> Clinical Impression: Depression, Alcohol use disorder, Alcohol intoxication Disposition: HOME SELF-CARE Condition: Fair Instructions (If sedation given, give patient instructions): Depression (ED) Referrals: [facility] [Primary Care Provider] - 1-2 days
[2023-10-15] MEDS ORDERED: ONDANSETRON ODT 4 MG TAB PO PRN
[2023-10-15] MEDS ORDERED: ALBUTEROL INHALER 60 PUFF/8 GM INHALER (MHU) INHALATION PRN
[2023-10-15] MEDS ORDERED: ACETAMINOPHEN TAB 325 MG TAB PO PRN
[2023-10-15 03:51] LABS: Appearance,Urine Clear (Clear); Bilirubin,Urine Negative (Negative); Blood,Urine Negative (Negative); Color,Urine Yellow; Glucose,Urine (UA) Negative (Negative); Ketones,Urine Negative (Negative); Leukocyte Esterase,Urine Negative (Negative); Nitrite,Urine Negative (Negative); Protein,Urine Negative (Negative); Specific Gravity,Urine 1.015 (1.001-1.035); Urobilinogen,Urine <2.0 mg/dL (<2.0)
[2023-10-15 04:07] LABS: Amphetamine Screen,Urine Not Detected (NotDetected); Barbiturate Screen,Urine Not Detected (NotDetected); Benzodiazepines Screen,Urine Detected (NotDetected); Cocaine Screen,Urine Not Detected (NotDetected); Methadone Screen, Urine Not Detected (NotDetected); Opiate Screen,Urine Not Detected (NotDetected); Oxycodone Screen, Urine Not Detected (NotDetected); Phencyclidine Screen,Urine Not Detected (NotDetected); Tricyclic Antidepressant,Urine Not Detected (NotDetected); Urn Cannabinoid Scrn Not Detected (NotDetected)
[2023-10-15] MEDS ORDERED: ONDANSETRON 4 MG TAB PO STA (06:04)
[2023-10-15] MEDS ORDERED: LEVOTHYROXINE 75 MCG TAB PO SCH (06:30)
[2023-10-15 07:55] VITALS: PULSE 78
[2023-10-15] MEDS ORDERED: ESCITALOPRAM 20 MG TAB PO SCH (09:00)
[2023-10-15] MEDS ORDERED: lamoTRIgine 100 MG TAB PO SCH (09:00)
[2023-10-15] MEDS ORDERED: amLODIPine 2.5 MG TAB PO SCH (09:00)
[2023-10-15] MEDS ORDERED: PANTOPRAZOLE 40 MG TABLET PO SCH (09:00)
[2023-10-15] MEDS: LORazepam 1 MG TAB PO STA ×2 (09:38→09:42)
[2023-10-15] MEDS ORDERED: LORazepam 1 MG TAB PO STA (09:41)
[2023-10-15 12:05] VITALS: BP 112/67; RESP 16; TEMP 98.2
[2023-10-15] MEDS ORDERED: traZODone HCL 50 MG TAB PO SCH (21:00)
== END 2023-10-15 11:58 | disposition home or self-care (01) ==
LOC: EC 19:12
DX: F32.A Depression, unspecified (principal); F10.129 Alcohol abuse with intoxication, unspecified; J45.909 Unspecified asthma, uncomplicated; I10 Essential (primary) hypertension; Z88.1 Allergy status to other antibiotic agents; Z88.8 Allergy status to other drugs, medicaments and biological substances
CPT/HCPCS: 80306; 81003; 82075; 99285

== ENCOUNTER 2023-10-26 20:06 | Observation (INO) | payer OTHER ==
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
[2023-10-26] MEDS ORDERED: SODIUM CHLORIDE 0.9% 1,000 ML IV STA (21:34)
[2023-10-26] MEDS ORDERED: ONDANSETRON 4 MG/2 ML VIAL IVP STA ×2 (21:34→22:22)
[2023-10-26 21:41] LABS: Basophils % (A) 1 %; Eosinophils % (A) 1 %; HCT 41.8 % (34.0-46.0); HGB 14.4 gm/dL (11.4-16.0); Lymphocytes # (A) 1.1 k/uL (1.0-4.8); Lymphocytes % (A) 33 %; MCH 33.6 pg (25.0-35.0); MCHC 34.4 g/dL (31.0-37.0); MCV 97.9 fL (80.0-100.0); Mean Platelet Volume 8.3; Monocytes # (A) 0.3 k/uL (0-1.0); Monocytes % (A) 8 %; Neutrophils # (A) 1.8 k/uL (1.3-7.7); Neutrophils % (A) 55 %; Platelet Count 148 k/uL (150-450); RBC 4.27 m/uL (3.80-5.40); RDW 14.6 % (11.5-15.5); WBC 3.2 k/uL (3.8-10.6)
[2023-10-26 21:57] LABS: ALT 54 U/L (4-34); AST 90 U/L (14-36); African American GFR (CKD) >90 (>60 ml/min/1.73 sqM); Albumin 4.7 g/dL (3.5-5.0); Alkaline Phosphatase 53 U/L (38-126); Anion Gap 15 mmol/L; Blood Urea Nitrogen 8 mg/dL (7-17); Calcium 9.4 mg/dL (8.4-10.2); Carbon Dioxide 26 mmol/L (22-30); Chloride 103 mmol/L (98-107); Glucose 100 mg/dL (74-99); Magnesium 1.9 mg/dL (1.6-2.3); Non-African American GFR(CKD) >90 (>60 ml/min/1.73 sqM); Potassium 3.7 mmol/L (3.5-5.1); Sodium 144 mmol/L (137-145); Total Bilirubin 0.5 mg/dL (0.2-1.3); Total Protein 7.7 g/dL (6.3-8.2)
[2023-10-26 22:10] LABS: Alcohol 331 mg/dL
[2023-10-26] MEDS ORDERED: NALOXONE 0.4 MG/ML 1 ML VIAL IV PRN (23:22)
[2023-10-26] MEDS ORDERED: THIAMINE 100 MG/ML 2 ML VIAL IM STA (23:23)
[2023-10-26] MEDS ORDERED: LORazepam 0.5 MG TAB PO PRN (23:23)
[2023-10-26] MEDS ORDERED: LORazepam 1 MG TAB PO PRN (23:23)
[2023-10-26] MEDS: LORazepam 1 MG TAB PO PRN (23:49)
[2023-10-27] MEDS: SODIUM CHLORIDE 0.9% 1,000 ML IV SCH (00:09)
[2023-10-27] MEDS: LORazepam 1 MG TAB PO PRN ×4 (01:18→16:26)
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
[2023-10-27] MEDS ORDERED: IBUPROFEN 400 MG TAB PO ONE (04:15)
[2023-10-27 08:17] VITALS: RESP 16
[2023-10-27] MEDS: ENOXAPARIN 40 MG/0.4 ML SYRINGE SQ SCH (08:48)
[2023-10-27] MEDS ORDERED: THIAMINE 100 MG TAB PO SCH (09:00)
[2023-10-27] MEDS ORDERED: FOLIC ACID-VIT B COMPLEX-VIT C 1 CAP PO SCH (09:00)
[2023-10-27] MEDS ORDERED: ALBUTEROL NEBULIZED 2.5 MG/3 ML INHALATION PRN (13:45)
[2023-10-27] MEDS: ACETAMINOPHEN TAB 325 MG TAB PO PRN (16:26)
[2023-10-27] MEDS ORDERED: traZODone HCL 50 MG TAB PO SCH (21:00)
[2023-10-28] MEDS: SODIUM CHLORIDE 0.9% 1,000 ML IV SCH ×2 (00:38→08:34)
[2023-10-28] MEDS ORDERED: LEVOTHYROXINE 75 MCG TAB PO SCH (06:30)
[2023-10-28] MEDS ORDERED: PANTOPRAZOLE 40 MG TABLET PO SCH (07:30)
[2023-10-28 07:56] VITALS: BP 155/90; PULSE 66; TEMP 98.6
[2023-10-28] MEDS: ACETAMINOPHEN TAB 325 MG TAB PO PRN (08:34)
[2023-10-28] MEDS: LORazepam 1 MG TAB PO PRN (08:35)
[2023-10-28] MEDS: ENOXAPARIN 40 MG/0.4 ML SYRINGE SQ SCH (08:36)
[2023-10-28] MEDS ORDERED: lamoTRIgine 100 MG TAB PO SCH (09:00)
[2023-10-28] MEDS ORDERED: FLUTICASONE 50MCG/SPRAY NASAL 16GM EA NOSTRIL SCH (09:00)
[2023-10-28] MEDS ORDERED: THIAMINE 100 MG TAB PO SCH (09:00)
[2023-10-28] MEDS ORDERED: MULTIVITAMINS, THERA 1 EACH TAB PO SCH (09:00)
[2023-10-28] MEDS ORDERED: ESCITALOPRAM 20 MG TAB PO SCH (09:00)
[2023-10-28] MEDS ORDERED: amLODIPine 2.5 MG TAB PO SCH (09:00)
[2023-10-28] MEDS ORDERED: FOLIC ACID 1 MG TAB PO SCH (09:00)
--- NOTE | 2023-10-28 10:45 | P.DS ---
Providers Date of admission: 10/26/23 23:22 Expected date of discharge: 10/28/23 Attending physician: Judy Dominique MD Primary care physician: Stated None Hospital Course: Discharge Diagnosis: Alcohol intoxication with history of DTs Bicytopenia, secondary to go alcohol use Alcohol dependence Transaminitis, in the setting of alcohol use Hypothyroidism Hypertension Bipolar disorder Hospital Course: 63-year-old female with a PMH of alcohol abuse well known to us with history of DTs, hypothyroidism status post thyroidectomy, and bipolar disorder who presents to the emergency room with alcohol intoxication. EKG emergency room revealed sinus rhythm at 67 bpm with T-wave flattening in leads 3 and aVF as reviewed by me with no additional ST/T-wave changes noted. Laboratory evaluation was remarkable for alcohol level 331, leukopenia 3.2 with platelet count 148, glucose 100, AST 90, and ALT 54. Patient admitted for observation for acute alcohol intoxication with impending alcohol withdrawal. Stable at the time of discharge. She claims that she will go home and go to [place] in 4 days. She is aware that due to holidays, she may be tempted to have alcohol again. She has a friend and her roommate they're planning to keep her accountable. She understands that if she starts experiencing withdrawal symptoms she will present back to the emergency. Patient seen and examined at bedside. Vital signs reviewed and stable. General: nontoxic, no distress, appears at stated age Derm: warm, dry Head: atraumatic, normocephalic, symmetric Eyes: EOMI, no lid lag, anicteric sclera Mouth: no lip lesion, mucus membranes moist Cardiovascular: S1S2 reg, no murmur Lungs: CTA bilateral, no rhonchi, no rales , no accessory muscle use Abdominal: soft, nontender to palpation, no guarding, no appreciable organomegaly Ext: no gross muscle atrophy, no edema, no contractures Neuro: CN II-XI grossly intact, no focal neuro deficits, slight extension tremor Psych: Alert, oriented, appropriate affect A total of 33 minutes of time were spent preparing this complex discharge summary. Patient was discharged on 10/28/23 at 1040. Patient Condition at Discharge: Stable Plan - Discharge Summary Discharge Rx Participant: Yes New Discharge Prescriptions: Continue Acetaminophen Tab [Tylenol] 650 mg PO Q6HR PRN tab PRN Reason: Mild Pain Or Fever > 100.5 Ondansetron Odt [Zofran ODT] 4 mg PO Q8HR PRN #10 tab PRN Reason: Nausea Omeprazole Magnesium [PriLOSEC OTC] 20 mg PO DAILY lamoTRIgine [LaMICtal] 100 mg PO DAILY 30 Days #30 tab Escitalopram [Lexapro] 20 mg PO DAILY 30 Days #30 tab Acamprosate Calcium [Campral] 666 mg PO TID 30 Days #120 tab amLODIPine [Norvasc] 2.5 mg PO DAILY 30 Days #30 tab Levothyroxine Sodium [Synthroid] 150 mcg PO DAILY 30 Days #30 tab Thiamine [Vitamin B-1] 100 mg PO DAILY 30 Days #30 tab Fluticasone Nasal [place] [Flonase Nasal [place]] 2 spr EA NOSTRIL DAILY Multivitamins, Thera [Multivitamin (formulary)] 1 tab PO DAILY Albuterol Inhaler [Ventolin Hfa Inhaler] 2 puff INHALATION RT-Q6H PRN #1 each PRN Reason: Shortness Of Breath Nitroglycerin Sl Tabs [Nitrostat] 0.4 mg SL Q5M PRN PRN Reason: Chest Pain Fexofenadine HCl [Debbi Allergy] 180 mg PO DAILY Triamcinolone 0.1% Cream [Kenalog 0.1% Cream] 1 applic TOPICAL BID PRN PRN Reason: psoriasis Ibuprofen [Motrin] 400 mg PO Q8H PRN tab PRN Reason: Moderate To Severe Pain (4-10) traZODone HCL 150 mg PO HS 30 Days #30 tablet Folic Acid 1 mg PO DAILY 30 Days #30 tab Discharge Medication List Albuterol Inhaler [Ventolin Hfa Inhaler] 2 puff INHALATION RT-Q6H PRN #1 each 01/20/23 [Rx] Nitroglycerin Sl Tabs [Nitrostat] 0.4 mg SL Q5M PRN 05/18/23 [History] Acetaminophen Tab [Tylenol] 650 mg PO Q6HR PRN tab 07/19/23 [Rx] Ondansetron Odt [Zofran ODT] 4 mg PO Q8HR PRN #10 tab 08/04/23 [Rx] Fexofenadine HCl [Debbi Allergy] 180 mg PO DAILY 08/14/23 [History] Triamcinolone 0.1% Cream [Kenalog 0.1% Cream] 1 applic TOPICAL BID PRN 08/15/23 [History] Omeprazole Magnesium [PriLOSEC OTC] 20 mg PO DAILY 10/03/23 [History] Acamprosate Calcium [Campral] 666 mg PO TID 30 Days #120 tab 10/06/23 [Rx] Escitalopram [Lexapro] 20 mg PO DAILY 30 Days #30 tab 10/06/23 [Rx] Folic Acid 1 mg PO DAILY 30 Days #30 tab 10/06/23 [Rx] Ibuprofen [Motrin] 400 mg PO Q8H PRN tab 10/06/23 [Rx] Levothyroxine Sodium [Synthroid] 150 mcg PO DAILY 30 Days #30 tab 10/06/23 [Rx] Thiamine [Vitamin B-1] 100 mg PO DAILY 30 Days #30 tab 10/06/23 [Rx] amLODIPine [Norvasc] 2.5 mg PO DAILY 30 Days #30 tab 10/06/23 [Rx] lamoTRIgine [LaMICtal] 100 mg PO DAILY 30 Days #30 tab 10/06/23 [Rx] traZODone HCL 150 mg PO HS 30 Days #30 tablet 10/06/23 [Rx] Fluticasone Nasal [place] [Flonase Nasal [place]] 2 spr EA NOSTRIL DAILY 10/14/23 [History] Multivitamins, Thera [Multivitamin (formulary)] 1 tab PO DAILY 10/14/23 [History] Follow up Appointment(s)/Referral(s): None,Stated [Primary Care Provider] - 1-2 days Patient Instructions/Handouts: Alcohol Intoxication (DC), Abuse of Alcohol (DC) Activity/Diet/Wound Care/Special Instructions: Please see your PCP and go to [place]. Discharge/Stand Alone Forms: AA Meetings [place], Outpatient Counseling, Inp Substance Abuse Facilities Discharge Disposition: HOME SELF-CARE
== END 2023-10-28 13:30 | disposition home or self-care (01) ==
LOC: EC 20:06 → 6NMEDSUR 23:22 → 5NMEDONC 23:56
PROVIDERS: ADMIT Internal Medicine; ATTEND Internal Medicine
DX: F10.229 Alcohol dependence with intoxication, unspecified (principal); E89.0 Postprocedural hypothyroidism; F31.9 Bipolar disorder, unspecified; J31.0 Chronic rhinitis; L40.9 Psoriasis, unspecified; F41.9 Anxiety disorder, unspecified; J45.909 Unspecified asthma, uncomplicated; D72.819 Decreased white blood cell count, unspecified; I10 Essential (primary) hypertension; Y90.8 Blood alcohol level of 240 mg/100 ml or more; Z79.899 Other long term (current) drug therapy; Z79.890 Hormone replacement therapy; Z88.8 Allergy status to other drugs, medicaments and biological substances; Z88.1 Allergy status to other antibiotic agents; Z81.1 Family history of alcohol abuse and dependence; Z80.0 Family history of malignant neoplasm of digestive organs; Z80.3 Family history of malignant neoplasm of breast
CPT/HCPCS: 96361 ×3; 96372 ×3; 96376; 96374; 99285; 36415; 93005; 80053; 83690; 83735; 85025; G0378 ×3; G0480; J3411; J2405; J1650 ×2; 80320

== ENCOUNTER 2023-10-29 04:40 | Emergency (ER) | payer OTHER ==
[2023-10-29 05:30] VITALS: TEMP 98.8
[2023-10-29] MEDS ORDERED: SODIUM CHLORIDE 0.9% 1,000 ML IV STA (05:35)
[2023-10-29] MEDS ORDERED: chlordiazePOXIDE 25 MG CAP PO STA (05:36)
--- NOTE | 2023-10-29 05:50 | ED ---
General Adult HPI - General Chief complaint: Alcohol Stated complaint: Alcoholism Time Seen by Provider: 10/29/23 05:06 Source: patient Mode of arrival: wheelchair Limitations: no limitations - History of Present Illness Initial comments: This patient is a 63-year-old woman who presents with complaint that she is feeling anxious and jittery. She states she is trying to stop drinking. 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 -: hour(s) Location: head Quality: dull Consistency: constant Improves with: none Worsens with: none Associated Symptoms: other - Related Data Home Medications Medication Instructions Recorded Confirmed Nitroglycerin Sl Tabs [Nitrostat] 0.4 mg SL Q5M PRN 05/18/23 11/18/23 Fexofenadine HCl [Debbi Allergy] 180 mg PO DAILY 08/14/23 11/18/23 Triamcinolone 0.1% Cream [Kenalog 1 applic TOPICAL BID PRN 08/15/23 11/18/23 0.1% Cream] Omeprazole Magnesium [PriLOSEC OTC] 20 mg PO DAILY 10/03/23 11/18/23 Fluticasone Nasal Duarte [Flonase 2 spr EA NOSTRIL DAILY 10/14/23 11/18/23 Nasal Duarte] Multivitamins, Thera [Multivitamin 1 tab PO DAILY 10/14/23 11/18/23 (formulary)] Metoprolol Tartrate [Lopressor] 12.5 mg PO BID 11/18/23 11/18/23 Previous Rx's Medication Instructions Recorded Albuterol Inhaler [Ventolin Hfa 2 puff INHALATION RT-Q6H PRN #1 01/20/23 Inhaler] each Acetaminophen Tab [Tylenol] 650 mg PO Q6HR PRN tab 07/19/23 Ondansetron Odt [Zofran ODT] 4 mg PO Q8HR PRN #10 tab 08/04/23 Acamprosate Calcium [Campral] 666 mg PO TID 30 Days #120 tab 10/06/23 Escitalopram [Lexapro] 20 mg PO DAILY 30 Days #30 tab 10/06/23 Folic Acid 1 mg PO DAILY 30 Days #30 tab 10/06/23 Levothyroxine Sodium [Synthroid] 150 mcg PO DAILY 30 Days #30 tab 10/06/23 Thiamine [Vitamin B-1] 100 mg PO DAILY 30 Days #30 tab 10/06/23 lamoTRIgine [LaMICtal] 100 mg PO DAILY 30 Days #30 tab 10/06/23 traZODone HCL 150 mg PO HS 30 Days #30 tablet 10/06/23 Calcium Carbonate [Tums] 500 mg PO AC-TID tab 11/04/23 Allergies Allergy/AdvReac Type Severity Reaction Status Date / Time clindamycin Allergy Unknown Rash/Hives Verified 11/18/23 15:02 acetylcysteine AdvReac Anaphylaxis Verified 11/18/23 15:02 [From Mucomyst] citalopram [From Celexa] AdvReac Hallucinati Verified 11/18/23 15:02 ons diphenhydramine HCl AdvReac Rapid Verified 11/18/23 15:02 [From Benadryl] Heart Rate Review of Systems ROS Statement: Those systems with pertinent positive or pertinent negative responses have been documented in the HPI. ROS Other: All systems not noted in ROS Statement are negative. Constitutional: Denies: fever, chills, weakness Eyes: Denies: vision change Respiratory: Denies: cough, dyspnea Cardiovascular: Denies: chest pain, palpitations, syncope Gastrointestinal: Reports: nausea. Denies: abdominal pain, vomiting, diarrhea Genitourinary: Denies: dysuria, hematuria Musculoskeletal: Denies: back pain Skin: Denies: rash Neurological: Reports: headache. Denies: weakness, numbness Psychiatric: Reports: anxiety. Denies: depression, auditory hallucinations, visual hallucinations, suicidal thoughts Past Medical History Past Medical History: Asthma, Cancer, Hypertension, Thyroid Disorder Additional Past Medical History / Comment(s): History of goiter status post thyroidectomy, questionable history of thyroid cancer although this is not clear, bipolar disorder, depression, history of suicidal ideations, history of drug overdose, alcoholism, seasonal rhinitis, psoriasis, breast cysts, history of broken toes in the right foot, History of Any Multi-Drug Resistant Organisms: None Reported Past Surgical History: No Surgical Hx Reported Additional Past Surgical History / Comment(s): Thyroidectomy 2000, SKIN NEVI REMOVED Past Anesthesia/Blood Transfusion Reactions: Previous Problems w/ Anesthesia, Postoperative Nausea & Vomiting (PONV) Additional Past Anesthesia/Blood Transfusion Reaction / Comment(s): Lives in a house with two roommates. ETOH. Pt no longer has a drivers license- she has had 2 DUI's. 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 She has lost several jobs d/t tess [employer]. She is seen at [facility]. Past Psychological History: Anxiety, Bipolar, Depression Smoking Status: Never smoker Past Alcohol Use History: Abuse, Daily Past Drug Use History: None Reported - Past Family History Father Family Medical History: Cancer Additional Family Medical History / Comment(s): Father at age 64 of esophageal cancer. Father was an alcoholic and had cirrhosis of the liver. Mother Family Medical History: Cancer Additional Family Medical History / Comment(s): Mother of breast cancer at age 42yrs. General Exam Limitations: no limitations General appearance: alert, in no apparent distress, anxious Head exam: Present: atraumatic, normocephalic Eye exam: Present: normal appearance. Absent: scleral icterus, conjunctival injection ENT exam: Present: normal oropharynx Neck exam: Present: normal inspection Respiratory exam: Present: normal lung sounds bilaterally. Absent: respiratory distress, wheezes, rales, rhonchi, stridor Cardiovascular Exam: Present: regular rate, normal rhythm, normal heart sounds. Absent: systolic murmur, diastolic murmur, rubs, gallop GI/Abdominal exam: Present: soft. Absent: distended, tenderness, guarding, rebound, rigid, mass Extremities exam: Present: normal inspection, normal capillary refill. Absent: pedal edema, calf tenderness Back exam: Present: normal inspection Neurological exam: Present: alert, oriented X3 Psychiatric exam: Present: anxious. Absent: agitated, manic, homicidal ideation, suicidal ideation Skin exam: Present: warm, dry, intact, normal color. Absent: rash Course Vital Signs 10/29/23 10/29/23 10/29/23 04:43 06:16 08:15 Temperature 98.8 F Pulse Rate 84 79 78 Respiratory 16 19 18 Rate Blood Pressure 120/78 122/90 104/78 O2 Sat by Pulse 98 97 98 Oximetry EKG Findings - EKG Results: EKG: interpreted by ERMD, sinus rhythm, normal axis, normal QRS - Blocks, Bryson, Hypertrophy, ST Abn: Repolarization changes or abnormalities: nonspecific abnormality, ST segment, and/or T wave Medical Decision Making - Medical Decision Making Was pt. sent in by a medical professional or institution (EDY Riley, PATIENT ACCOUNT REPRESENTATIVE, urgent care, hospital, or intermediate...) When possible be specific @ -[No] Did you speak to anyone other than the patient for history (EMS, parent, family, police, friend...)? What history was obtained from this source @ -[No] Did you review nursing and triage notes (agree or disagree)? Why? @ -[I reviewed and agree with nursing and triage notes] Were old charts reviewed (outside hosp., previous admission, EMS record, old EKG, old radiological studies, urgent care reports/EKG's, intermediate records)? Report findings @ -[No old charts were reviewed] Differential Diagnosis (chest pain, altered mental status, abdominal pain women, abdominal pain men, vaginal bleeding, weakness, fever, dyspnea, syncope, headache, dizziness, GI bleed, back pain, seizure, CVA, palpatations, mental health, musculoskeletal)? @ -[Differential Mental Health Depression, anxiety, bipolar, psychosis, schizophrenia, borderline personality, situational depression, adjustment disorder, behavioral disorder, brain tumor, malingering, substance abuse, encephalopathy, medication reaction, dementia, hypothyroidism, degenerative neurologic disorder, lupus.... This is not meant to be all-inclusive list EKG interpreted by me (3pts min.). @ -[[I interpreted as above X-rays interpreted by me (1pt min.). @ -[None done] CT interpreted by me (1pt min.). @ -[None done] U/S interpreted by me (1pt. min.). @ -[None done] What testing was considered but not performed or refused? (CT, X-rays, U/S, labs)? Why? @ -[None] What meds were considered but not given or refused? Why? @ -[None] Did you discuss the management of the patient with other professionals (professionals i.e. EDY Riley, PATIENT ACCOUNT REPRESENTATIVE, lab, RT, psych nurse, transition social worker, harness tier, teacher, security officer supervisor, case maker)? Give summary @ -[No] Was smoking cessation discussed for >3mins.? @ -[No] Was critical care preformed (if so, how long)? @ -[No] Were there social determinants of health that impacted care today? How? (Homelessness, low income, unemployed, alcoholism, drug addiction, transportation, low edu. Level, literacy, decrease access to med. care, fpc, rehab)? @ -[No] Was there de-escalation of care discussed even if they declined (Discuss DNR or withdrawal of care, Hospice)? DNR status @ -[No] What co-morbidities impacted this encounter? (DM, HTN, Smoking, COPD, CAD, Cancer, CVA, ARF, Chemo, Hep., AIDS, mental health diagnosis, sleep apnea, morbid obesity)? @ -[None] Was patient admitted / discharged? Hospital course, mention meds given and route , prescriptions, significant lab abnormalities, going to OR and other pertinent info. @ -[This patient is 63-year-old woman presenting with complaint that she feels she is withdrawing from alcohol. Patient states that she would like to go to rehabilitation, but she is afraid she will drink for she is able to get there. Patient will be prescribed benzodiazepine to bridge the time until she is able to get into a rehabilitation center. Discussed appropriate further care as well as return parameters. Undiagnosed new problem with uncertain prognosis? @ -[No] Drug Therapy requiring intensive monitoring for toxicity (Heparin, Nitro, Insulin, Cardizem)? @ -[No] Were any procedures done? @ -[No] Diagnosis/symptom? @ -Acute alcohol withdrawal Acute, or Chronic, or Acute on Chronic? @ -[Acute Uncomplicated (without systemic symptoms) or Complicated (systemic symptoms)? @ -[Uncomplicated Side effects of treatment? @ -[No] Exacerbation, Progression, or Severe Exacerbation? @ -[No] Poses a threat to life or bodily function? How? (Chest pain, [place], [place], pneumonia, PE, COPD, DKA, ARF, appy, cholecystitis, CVA, Diverticulitis, Homicidal, Suicidal, threat to staff... and all critical care pts) @ -[Low - Lab Data Result diagrams: 10/29/23 05:46 10/29/23 05:46 Lab Results 10/29/23 10/29/23 10/29/23 Range/Units 05:46 05:46 05:46 WBC 4.1 (3.8-10.6) k/uL RBC 4.45 (3.80-5.40) m/uL Hgb 14.6 (11.4-16.0) gm/dL Hct 43.0 (34.0-46.0) % MCV 96.6 (80.0-100.0) fL MCH 32.8 (25.0-35.0) pg MCHC 34.0 (31.0-37.0) g/dL RDW 14.5 (11.5-15.5) % Plt Count 123 L (150-450) k/uL MPV 9.5 Neutrophils % 61 % Lymphocytes % 23 % Monocytes % 9 % Eosinophils % 2 % Basophils % 0 % Neutrophils # 2.5 (1.3-7.7) k/uL Lymphocytes # 0.9 L (1.0-4.8) k/uL Monocytes # 0.4 (0-1.0) k/uL Eosinophils # 0.1 (0-0.7) k/uL Basophils # 0.0 (0-0.2) k/uL Sodium 136 L (137-145) mmol/L Potassium 3.3 L (3.5-5.1) mmol/L Chloride 96 L (98-107) mmol/L Carbon Dioxide 26 (22-30) mmol/L Anion Gap 14 mmol/L BUN 7 (7-17) mg/dL Creatinine 0.70 (0.52-1.04) mg/dL Est GFR (CKD-EPI)AfAm >90 (>60 ml/min/1.73 sqM) Est GFR (CKD-EPI)NonAf >90 (>60 ml/min/1.73 sqM) Glucose 111 H (74-99) mg/dL Osmolality 309 H (280-301) mosm/kg Calcium 10.6 H (8.4-10.2) mg/dL Total Bilirubin 0.9 (0.2-1.3) mg/dL AST 91 H (14-36) U/L ALT 55 H (4-34) U/L Alkaline Phosphatase 56 (38-126) U/L Total Protein 8.2 (6.3-8.2) g/dL Albumin 4.9 (3.5-5.0) g/dL Urine Color Colorless Urine Appearance Clear (Clear) Urine pH 6.0 (5.0-8.0) Ur Specific Richardson 1.003 (1.001-1.035) Urine Protein Negative (Negative) Urine Glucose (UA) Negative (Negative) Urine Ketones 1+ H (Negative) Urine Blood Negative (Negative) Urine Nitrite Negative (Negative) Urine Bilirubin Negative (Negative) Urine Urobilinogen <2.0 (<2.0) mg/dL Ur Leukocyte Esterase Negative (Negative) Salicylates <1.0 mg/dL Urine Opiates Screen Not Detected (NotDetected) Ur Oxycodone Screen Not Detected (NotDetected) Urine Methadone Screen Not Detected (NotDetected) Acetaminophen <10.0 ug/mL Ur Barbiturates Screen Not Detected (NotDetected) U Tricyclic Antidepress Not Detected (NotDetected) Ur Phencyclidine Scrn Not Detected (NotDetected) Ur Amphetamines Screen Not Detected (NotDetected) U Methamphetamines Scrn Not Detected (NotDetected) U Benzodiazepines Scrn Detected H (NotDetected) Urine Cocaine Screen Not Detected (NotDetected) U Marijuana (THC) Screen Not Detected (NotDetected) Ur Drug Screen Comment SEE COMMENT Serum Alcohol <10 mg/dL Disposition Clinical Impression: Alcohol withdrawal Disposition: HOME SELF-CARE Condition: Good Instructions (If sedation given, give patient instructions): Alcohol Withdrawal (ED) Is patient prescribed a controlled substance at d/c from ED?: No Referrals: Dylon Castro MD [Primary Care Provider] - 1-2 days
[2023-10-29 06:06] LABS: Basophils % (A) 0 %; Eosinophils # (A) 0.1 k/uL (0-0.7); Eosinophils % (A) 2 %; HGB 14.6 gm/dL (11.4-16.0); Lymphocytes # (A) 0.9 k/uL (1.0-4.8); Lymphocytes % (A) 23 %; MCH 32.8 pg (25.0-35.0); MCV 96.6 fL (80.0-100.0); Mean Platelet Volume 9.5; Monocytes # (A) 0.4 k/uL (0-1.0); Monocytes % (A) 9 %; Neutrophils # (A) 2.5 k/uL (1.3-7.7); Neutrophils % (A) 61 %; Platelet Count 123 k/uL (150-450); RBC 4.45 m/uL (3.80-5.40); RDW 14.5 % (11.5-15.5); WBC 4.1 k/uL (3.8-10.6)
[2023-10-29 06:09] LABS: Appearance,Urine Clear (Clear); Bilirubin,Urine Negative (Negative); Blood,Urine Negative (Negative); Color,Urine Colorless; Glucose,Urine (UA) Negative (Negative); Ketones,Urine 1+ (Negative); Leukocyte Esterase,Urine Negative (Negative); Nitrite,Urine Negative (Negative); Protein,Urine Negative (Negative); Specific Gravity,Urine 1.003 (1.001-1.035); Urobilinogen,Urine <2.0 mg/dL (<2.0)
[2023-10-29 06:32] LABS: ALT 55 U/L (4-34); AST 91 U/L (14-36); Acetaminophen <10.0 ug/mL; African American GFR (CKD) >90 (>60 ml/min/1.73 sqM); Albumin 4.9 g/dL (3.5-5.0); Alcohol <10 mg/dL; Alkaline Phosphatase 56 U/L (38-126); Anion Gap 14 mmol/L; Blood Urea Nitrogen 7 mg/dL (7-17); Calcium 10.6 mg/dL (8.4-10.2); Carbon Dioxide 26 mmol/L (22-30); Chloride 96 mmol/L (98-107); Glucose 111 mg/dL (74-99); Non-African American GFR(CKD) >90 (>60 ml/min/1.73 sqM); Potassium 3.3 mmol/L (3.5-5.1); Salicylate <1.0 mg/dL; Sodium 136 mmol/L (137-145); Total Bilirubin 0.9 mg/dL (0.2-1.3); Total Protein 8.2 g/dL (6.3-8.2)
[2023-10-29 06:51] LABS: Amphetamine Screen,Urine Not Detected (NotDetected); Barbiturate Screen,Urine Not Detected (NotDetected); Benzodiazepines Screen,Urine Detected (NotDetected); Cocaine Screen,Urine Not Detected (NotDetected); Methadone Screen, Urine Not Detected (NotDetected); Opiate Screen,Urine Not Detected (NotDetected); Oxycodone Screen, Urine Not Detected (NotDetected); Phencyclidine Screen,Urine Not Detected (NotDetected); Tricyclic Antidepressant,Urine Not Detected (NotDetected); Urn Cannabinoid Scrn Not Detected (NotDetected)
[2023-10-29 12:57] VITALS: BP 104/78; PULSE 78; RESP 18
== END 2023-10-29 12:44 | disposition home or self-care (01) ==
LOC: EC 04:40
DX: F10.239 Alcohol dependence with withdrawal, unspecified (principal); J45.909 Unspecified asthma, uncomplicated; I10 Essential (primary) hypertension; Z86.59 Personal history of other mental and behavioral disorders; Z88.6 Allergy status to analgesic agent; Z88.8 Allergy status to other drugs, medicaments and biological substances; Z79.51 Long term (current) use of inhaled steroids; Z79.899 Other long term (current) drug therapy; Y90.0 Blood alcohol level of less than 20 mg/100 ml
CPT/HCPCS: 82075; 36415; 93005; 83930; 80053; 85025; 81003; 80306; 80143; 80179; 99284; 96360; G0480; 80320

== ENCOUNTER 2023-11-02 16:50 | Observation (INO) | payer OTHER ==
[2023-11-02 17:15] LABS: Glucose,Whole Blood 116 mg/dL (70-110)
[2023-11-02] MEDS ORDERED: LORazepam 2 MG/ML INJ IV PRN ×2 (17:16)
[2023-11-02] MEDS ORDERED: LORazepam 2 MG/ML INJ IV STA (17:16)
[2023-11-02] MEDS ORDERED: SODIUM CHLORIDE 0.9% 1,000 ML IV STA (17:16)
[2023-11-02] MEDS ORDERED: THIAMINE 100 MG/ML 2 ML VIAL IM STA (17:16)
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
[2023-11-02 18:23] LABS: ALT 76 U/L (4-34); AST 108 U/L (14-36); African American GFR (CKD) >90 (>60 ml/min/1.73 sqM); Albumin 4.4 g/dL (3.5-5.0); Alkaline Phosphatase 47 U/L (38-126); Anion Gap 16 mmol/L; Blood Urea Nitrogen 7 mg/dL (7-17); Calcium 9.2 mg/dL (8.4-10.2); Carbon Dioxide 22 mmol/L (22-30); Chloride 107 mmol/L (98-107); Glucose 119 mg/dL (74-99); Lipase 101 U/L (23-300); Magnesium 1.6 mg/dL (1.6-2.3); Non-African American GFR(CKD) >90 (>60 ml/min/1.73 sqM); Phosphorus 3.2 mg/dL (2.5-4.5); Potassium 3.6 mmol/L (3.5-5.1); Sodium 145 mmol/L (137-145); Total Bilirubin 0.4 mg/dL (0.2-1.3); Total Protein 7.3 g/dL (6.3-8.2)
[2023-11-02 18:27] LABS: Basophils % (A) 1 %; Eosinophils # (A) 0.1 k/uL (0-0.7); Eosinophils % (A) 2 %; HCT 44.8 % (34.0-46.0); HGB 14.5 gm/dL (11.4-16.0); Lymphocytes # (A) 1.2 k/uL (1.0-4.8); Lymphocytes % (A) 41 %; MCH 32.3 pg (25.0-35.0); MCHC 32.5 g/dL (31.0-37.0); MCV 99.6 fL (80.0-100.0); Macrocytosis Slight; Mean Platelet Volume 8.9; Monocytes # (A) 0.3 k/uL (0-1.0); Monocytes % (A) 10 %; Neutrophils # (A) 1.2 k/uL (1.3-7.7); Neutrophils % (A) 42 %; Platelet Count 180 k/uL (150-450); RDW 15.2 % (11.5-15.5); WBC 2.9 k/uL (3.8-10.6)
[2023-11-02] MEDS ORDERED: NALOXONE 0.4 MG/ML 1 ML VIAL IV PRN (18:38)
[2023-11-02] MEDS ORDERED: ONDANSETRON 4 MG/2 ML VIAL IVP PRN (18:38)
[2023-11-02 18:41] LABS: Alcohol 359 mg/dL
[2023-11-02] MEDS ORDERED: ONDANSETRON ODT 4 MG TAB PO PRN (21:18)
[2023-11-02] MEDS ORDERED: ALBUTEROL NEBULIZED 2.5 MG/3 ML INHALATION PRN (21:18)
[2023-11-02] MEDS: diazePAM 2 MG TAB PO SCH (21:34)
[2023-11-02] MEDS: ACAMPROSATE CALCIUM 333 MG TABLET.DR PO SCH (21:34)
[2023-11-02] MEDS: LORazepam 2 MG/ML INJ IV PRN (21:34)
[2023-11-03] MEDS: LORazepam 2 MG/ML INJ IV PRN ×2 (01:40→13:29)
[2023-11-03] MEDS: LEVOTHYROXINE 75 MCG TAB PO SCH (05:28)
[2023-11-03] MEDS ORDERED: PANTOPRAZOLE 40 MG TABLET PO SCH (07:30)
[2023-11-03] MEDS ORDERED: THIAMINE 100 MG TAB PO SCH (09:00)
[2023-11-03] MEDS: ESCITALOPRAM 20 MG TAB PO SCH (09:10)
[2023-11-03] MEDS: diazePAM 2 MG TAB PO SCH (09:10)
[2023-11-03] MEDS: ACAMPROSATE CALCIUM 333 MG TABLET.DR PO SCH ×3 (09:10→21:04)
[2023-11-03] MEDS: THIAMINE 100 MG TAB PO SCH (09:11)
[2023-11-03] MEDS: FOLIC ACID 1 MG TAB PO SCH (09:11)
[2023-11-03] MEDS: lamoTRIgine 100 MG TAB PO SCH (09:11)
[2023-11-03] MEDS: LORATADINE 10 MG TAB PO SCH (09:11)
[2023-11-03] MEDS: MULTIVITAMINS, THERA 1 EACH TAB PO SCH (09:11)
[2023-11-03] MEDS: CALCIUM CARBONATE 500 MG CHEWABLE PO SCH ×2 (16:15→18:24)
[2023-11-03] MEDS: diazePAM 5 MG TAB PO SCH ×3 (16:15→21:03)
[2023-11-03] MEDS: METOPROLOL TARTRATE 12.5 MG TAB PO SCH ×3 (16:16→21:03)
[2023-11-03] MEDS: PANTOPRAZOLE 40 MG TABLET PO SCH (16:16)
[2023-11-03] MEDS: ENOXAPARIN 40 MG/0.4 ML SYRINGE SQ SCH (16:19)
[2023-11-03] MEDS ORDERED: IBUPROFEN 800 MG TAB PO PRN (18:09)
[2023-11-03] MEDS ORDERED: IBUPROFEN 400 MG TAB PO PRN (18:18)
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
[2023-11-03] MEDS ORDERED: traZODone HCL 100 MG TAB PO SCH (21:00)
[2023-11-03] MEDS: Acetaminophen-Codeine 300-30mg TAB PO PRN (21:03)
[2023-11-04] MEDS: LEVOTHYROXINE 75 MCG TAB PO SCH (05:07)
[2023-11-04] MEDS: Acetaminophen-Codeine 300-30mg TAB PO PRN ×2 (05:08→10:43)
[2023-11-04 06:28] LABS: Basophils % (A) 1 %; Eosinophils # (A) 0.1 k/uL (0-0.7); Eosinophils % (A) 4 %; HCT 38.4 % (34.0-46.0); HGB 12.8 gm/dL (11.4-16.0); Lymphocytes # (A) 0.9 k/uL (1.0-4.8); Lymphocytes % (A) 31 %; MCH 33.4 pg (25.0-35.0); MCHC 33.4 g/dL (31.0-37.0); MCV 99.9 fL (80.0-100.0); Macrocytosis Slight; Mean Platelet Volume 8.8; Monocytes # (A) 0.2 k/uL (0-1.0); Monocytes % (A) 9 %; Neutrophils # (A) 1.5 k/uL (1.3-7.7); Neutrophils % (A) 54 %; Platelet Count 168 k/uL (150-450); RBC 3.85 m/uL (3.80-5.40); RDW 14.7 % (11.5-15.5); WBC 2.8 k/uL (3.8-10.6)
[2023-11-04 06:44] LABS: African American GFR (CKD) 87 (>60 ml/min/1.73 sqM); Anion Gap 6 mmol/L; Blood Urea Nitrogen 12 mg/dL (7-17); Calcium 8.7 mg/dL (8.4-10.2); Carbon Dioxide 32 mmol/L (22-30); Chloride 98 mmol/L (98-107); Glucose 80 mg/dL (74-99); Non-African American GFR(CKD) 76 (>60 ml/min/1.73 sqM); Potassium 3.8 mmol/L (3.5-5.1); Sodium 136 mmol/L (137-145)
[2023-11-04] MEDS: MULTIVITAMINS, THERA 1 EACH TAB PO SCH (09:10)
[2023-11-04] MEDS: THIAMINE 100 MG TAB PO SCH (09:10)
[2023-11-04] MEDS: diazePAM 5 MG TAB PO SCH (09:10)
[2023-11-04] MEDS: ACAMPROSATE CALCIUM 333 MG TABLET.DR PO SCH (09:10)
[2023-11-04] MEDS: FOLIC ACID 1 MG TAB PO SCH (09:10)
[2023-11-04] MEDS: lamoTRIgine 100 MG TAB PO SCH (09:10)
[2023-11-04] MEDS: METOPROLOL TARTRATE 12.5 MG TAB PO SCH (09:10)
[2023-11-04] MEDS: LORATADINE 10 MG TAB PO SCH (09:11)
[2023-11-04] MEDS: ESCITALOPRAM 20 MG TAB PO SCH (09:11)
[2023-11-04] MEDS: ENOXAPARIN 40 MG/0.4 ML SYRINGE SQ SCH (09:11)
[2023-11-04] MEDS: PANTOPRAZOLE 40 MG TABLET PO SCH (09:11)
[2023-11-04] MEDS: CALCIUM CARBONATE 500 MG CHEWABLE PO SCH ×2 (09:11→12:21)
[2023-11-04 13:10] VITALS: BP 127/86; PULSE 58; RESP 16; TEMP 98.3
[2023-11-04 13:50] LABS: T4, Free (Free Thyroxine) 0.46 ng/dL (0.78-2.19)
--- NOTE | 2023-11-04 21:29 | P.DS ---
Providers Date of admission: 11/02/23 18:39 Expected date of discharge: 11/04/23 Attending physician: Gautam Briones Primary care physician: D[facility] Course: Chief Complaint: Alcohol withdrawal This is a pleasant 63-year-old patient who follows with Dr. Dylon Castro. Chronic stable medical conditions include asthma, hypertension, hypothyroid, bipolar disorder, chronic alcoholism Patient has been to [facility] before. Patient decided to go there as she wants to get off alcohol. [facility] came [facility] her. Patient had taken more alcohol than she normally does. Normally drinks a lot of pint a day of vodka for close to 30 years. Patient's had decreased appetite. Has been vomiting. Does get reflux symptoms. Lives alone unemployed. Patient been having tremors. Shaky. No hallucinations. 11/04/2023: Doing much better. Anxiety better. Sitting up in a chair. Eating better. Had a very lengthy discussion with the patient about lifestyle changes and alcohol. Also suggested to go to [facility]. Amlodipine discontinued. Small dose of Lopressor. 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 Has been drinking alcohol for close to 30 years. About 1 pint a day. Lives alone. Patient does live for full pension. Has been to [facility] before. Physical examination: VITAL SIGNS: 98.3, 58, 16, 127/86, 93% room air GENERAL: In bed, formal comfortable EYES: Pupils equal. Conjunctiva normal. HEENT: External appearance of nose and ears normal, oral cavity grossly normal. NECK: JVD not raised; masses not palpable. HEART: First and second heart sounds are normal; no edema. LUNGS: Respiratory rate normal; clear to auscultation. ABDOMEN: Soft, nontender, liver spleen not palpable, no masses palpable. PSYCH: Alert and oriented x3; mood and affect anxiousl. MUSCULOSKELETAL:No Clubbing/cyanosis;muscles-grossly intact NEUROLOGICAL: Cranial nerves grossly intact; no facial asymmetry, power and sensation grossly intact. Much improved Tremors INVESTIGATIONS, reviewed in the clinical context: 11/04/2023: White count 2.8 hemoglobin 12.8 potassium 3.8 creatinine 0.83 White count 2.9 hemoglobin 14.5 platelets 18D potassium 3.6 creatinine 0.66 AST 108 ALT 76 Serum alcohol 359 Assessment and plan: -Acute alcohol withdrawal syndrome. Patient having tremors and anxiety Increase Valium to 5 mg 3 times a day. Patient is on CIWA scale. -Alcohol use disorder been drinking excessive alcohol for close to 30 years. Thiamine. -Severe GERD, causing vomiting likely associate's gastritis secondary to alcohol Increase Protonix to 40 mg twice a day. Tums 3 times a day before meals -Bipolar disorder Trazodone, Lamictal, Lexapro -Alcoholic hepatitis -Hypothyroid Synthroid Abnormal TSH. Needs to be rechecked outpatient. Disposition: Home Past Medical History Past Medical History: Asthma, Cancer, Hypertension, Thyroid Disorder Additional Past Medical History / Comment(s): History of goiter status post thyroidectomy, questionable history of thyroid cancer although this is not bhavya ar, bipolar disorder, depression, history of suicidal ideations, history of drug overdose, alcoholism, seasonal rhinitis, psoriasis, breast cysts, history of broken toes in the right foot, History of Any Multi-Drug Resistant Organisms: None Reported Past Surgical History: No Surgical Hx Reported Additional Past Surgical History / Comment(s): Thyroidectomy 1999, SKIN NEVI REMOVED Past Anesthesia/Blood Transfusion Reactions: Previous Problems w/ Anesthesia, Postoperative Nausea & Vomiting (PONV) Additional Past Anesthesia/Blood Transfusion Reaction / Comment(s): Lives in a house with two roommates. ETOH. Pt no longer has a drivers license- she has had 2 DUI's. 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 She is seen at [facility]. Past Psychological History: Anxiety, Bipolar, Depression Additional Psychological History / Comment(s): Pt is normally independent. Pt is an alcoholic. She is feeling more depressed lately and ashamed of her alcoholism. Pt states she drinks a pint a day and today drank half a bottle of hairspray. Pt no longer has a drivers license- she has had 2 DUI's. 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 She is seen at [facility]. Smoking Status: Never smoker Past Alcohol Use History: Abuse, Daily Additional Past Alcohol Use History / Comment(s): Pt agrees she is an alcoholic for greater than 20 years and comes from a family hx of abuse. Past Drug Use History: None Reported Plan - Discharge Summary Discharge Rx Participant: No New Discharge Prescriptions: New Metoprolol Tartrate [Lopressor] 12.5 mg PO BID #60 tab Calcium Carbonate [Tums] 500 mg PO AC-TID tab Continue Acetaminophen Tab [Tylenol] 650 mg PO Q6HR PRN tab PRN Reason: Mild Pain Or Fever > 100.5 Ondansetron Odt [Zofran ODT] 4 mg PO Q8HR PRN #10 tab PRN Reason: Nausea Omeprazole Magnesium [PriLOSEC OTC] 20 mg PO DAILY lamoTRIgine [LaMICtal] 100 mg PO DAILY 30 Days #30 tab Escitalopram [Lexapro] 20 mg PO DAILY 30 Days #30 tab Acamprosate Calcium [Campral] 666 mg PO TID 30 Days #120 tab Levothyroxine Sodium [Synthroid] 150 mcg PO DAILY 30 Days #30 tab Thiamine [Vitamin B-1] 100 mg PO DAILY 30 Days #30 tab Fluticasone Nasal [place] [Flonase Nasal [place]] 2 spr EA NOSTRIL DAILY Multivitamins, Thera [Multivitamin (formulary)] 1 tab PO DAILY Albuterol Inhaler [Ventolin Hfa Inhaler] 2 puff INHALATION RT-Q6H PRN #1 each PRN Reason: Shortness Of Breath Nitroglycerin Sl Tabs [Nitrostat] 0.4 mg SL Q5M PRN PRN Reason: Chest Pain Fexofenadine HCl [Debbi Allergy] 180 mg PO DAILY Triamcinolone 0.1% Cream [Kenalog 0.1% Cream] 1 applic TOPICAL BID PRN PRN Reason: psoriasis traZODone HCL 150 mg PO HS 30 Days #30 tablet Folic Acid 1 mg PO DAILY 30 Days #30 tab Discontinued amLODIPine [Norvasc] 2.5 mg PO DAILY 30 Days #30 tab Ibuprofen [Motrin] 400 mg PO Q8H PRN tab PRN Reason: Moderate To Severe Pain (4-10) Discharge Medication List Albuterol Inhaler [Ventolin Hfa Inhaler] 2 puff INHALATION RT-Q6H PRN #1 each 01/20/23 [Rx] Nitroglycerin Sl Tabs [Nitrostat] 0.4 mg SL Q5M PRN 05/18/23 [History] Acetaminophen Tab [Tylenol] 650 mg PO Q6HR PRN tab 07/19/23 [Rx] Ondansetron Odt [Zofran ODT] 4 mg PO Q8HR PRN #10 tab 08/04/23 [Rx] Fexofenadine HCl [Debbi Allergy] 180 mg PO DAILY 08/14/23 [History] Triamcinolone 0.1% Cream [Kenalog 0.1% Cream] 1 applic TOPICAL BID PRN 08/15/23 [History] Omeprazole Magnesium [PriLOSEC OTC] 20 mg PO DAILY 10/03/23 [History] Acamprosate Calcium [Campral] 666 mg PO TID 30 Days #120 tab 10/06/23 [Rx] Escitalopram [Lexapro] 20 mg PO DAILY 30 Days #30 tab 10/06/23 [Rx] Folic Acid 1 mg PO DAILY 30 Days #30 tab 10/06/23 [Rx] Levothyroxine Sodium [Synthroid] 150 mcg PO DAILY 30 Days #30 tab 10/06/23 [Rx] Thiamine [Vitamin B-1] 100 mg PO DAILY 30 Days #30 tab 10/06/23 [Rx] lamoTRIgine [LaMICtal] 100 mg PO DAILY 30 Days #30 tab 10/06/23 [Rx] traZODone HCL 150 mg PO HS 30 Days #30 tablet 10/06/23 [Rx] Fluticasone Nasal [place] [Flonase Nasal [place]] 2 spr EA NOSTRIL DAILY 10/14/23 [History] Multivitamins, Thera [Multivitamin (formulary)] 1 tab PO DAILY 10/14/23 [History] Calcium Carbonate [Tums] 500 mg PO AC-TID tab 11/04/23 [Rx] Metoprolol Tartrate [Lopressor] 12.5 mg PO BID #60 tab 11/04/23 [Rx] Follow up Appointment(s)/Referral(s): Dylon Castro MD [Primary Care Provider] - (call the office to schedule a new patient appointment. Dr. Vidales is accepting new patients. ) Patient Instructions/Handouts: Metoprolol (By mouth), Abuse of Alcohol (DC) Discharge/Stand Alone Forms: AA Meetings [facility] [address] [facility] - [facility], AA Meetings [place], Who Do I Call? Discharge Disposition: HOME SELF-CARE
== END 2023-11-04 13:48 | disposition home or self-care (01) ==
LOC: EC 16:50 → 5NMEDONC 18:39
PROVIDERS: ADMIT Hospitalist; ATTEND Hospitalist
DX: F10.229 Alcohol dependence with intoxication, unspecified (principal); F10.239 Alcohol dependence with withdrawal, unspecified; E89.0 Postprocedural hypothyroidism; F31.9 Bipolar disorder, unspecified; I10 Essential (primary) hypertension; J45.909 Unspecified asthma, uncomplicated; K21.9 Gastro-esophageal reflux disease without esophagitis; K70.10 Alcoholic hepatitis without ascites; L40.9 Psoriasis, unspecified; J31.0 Chronic rhinitis; Z56.0 Unemployment, unspecified; Z79.899 Other long term (current) drug therapy; Z79.890 Hormone replacement therapy; Z88.1 Allergy status to other antibiotic agents; Z88.8 Allergy status to other drugs, medicaments and biological substances; Z80.0 Family history of malignant neoplasm of digestive organs; Z81.1 Family history of alcohol abuse and dependence; Z80.3 Family history of malignant neoplasm of breast
CPT/HCPCS: 96376 ×2; 96361 ×3; 96372 ×3; 96375; 96374; 99285; 36415; 84439; 80053; 80048; 84443; 83690; 83735; 84100; 85025 ×2; G0378 ×3; G0480; J2060 ×2; J3411; J2405; J1650 ×2; 80320

== ENCOUNTER 2023-11-18 11:03 | Inpatient (IN) | payer OTHER ==
--- NOTE | 2023-11-18 11:42 | ED ---
Nausea/Vomiting/Diarrhea HPI - General Source: patient, RN notes reviewed Mode of arrival: ambulatory Limitations: no limitations <Aysha Alcocer - Last Filed: 11/18/23 11:40> - General Source: patient, RN notes reviewed, old records reviewed Limitations: no limitations <Raman Timmons - Last Filed: 11/18/23 14:31> - General Chief complaint: Nausea/Vomiting/Diarrhea Stated complaint: Nausea Time Seen by Provider: 11/18/23 11:40 - History of Present Illness Initial comments: Patient is a 63-year-old female presented ER with chief complaint of alcohol detox. Patient states her last drink was a couple of days ago. Patient is experiencing chills, nausea, and vomiting. Denies history of DTs or seizures. Patient denies any chest pain, shortness of breath, fevers. (Aysha Alcocer) Patient is a 63-year-old female presenting to the emergency department with concern for nausea. Patient states she may be detoxing from alcohol. Patient admits to drinking alcohol today. Patient denies any vomiting. Patient denies any hallucinations. (Raman Timmons) - Related Data Home Medications Medication Instructions Recorded Confirmed Nitroglycerin Sl Tabs [Nitrostat] 0.4 mg SL Q5M PRN 05/18/23 11/02/23 Fexofenadine HCl [Debbi Allergy] 180 mg PO DAILY 08/14/23 11/02/23 Triamcinolone 0.1% Cream [Kenalog 1 applic TOPICAL BID PRN 08/15/23 11/02/23 0.1% Cream] Omeprazole Magnesium [PriLOSEC OTC] 20 mg PO DAILY 10/03/23 11/02/23 Fluticasone Nasal [place] [Flonase 2 spr EA NOSTRIL DAILY 10/14/23 11/02/23 Nasal [place]] Multivitamins, Thera [Multivitamin 1 tab PO DAILY 10/14/23 11/02/23 (formulary)] Previous Rx's Medication Instructions Recorded Albuterol Inhaler [Ventolin Hfa 2 puff INHALATION RT-Q6H PRN #1 01/20/23 Inhaler] each Acetaminophen Tab [Tylenol] 650 mg PO Q6HR PRN tab 07/19/23 Ondansetron Odt [Zofran ODT] 4 mg PO Q8HR PRN #10 tab 08/04/23 Acamprosate Calcium [Campral] 666 mg PO TID 30 Days #120 tab 10/06/23 Escitalopram [Lexapro] 20 mg PO DAILY 30 Days #30 tab 10/06/23 Folic Acid 1 mg PO DAILY 30 Days #30 tab 10/06/23 Levothyroxine Sodium [Synthroid] 150 mcg PO DAILY 30 Days #30 tab 10/06/23 Thiamine [Vitamin B-1] 100 mg PO DAILY 30 Days #30 tab 10/06/23 lamoTRIgine [LaMICtal] 100 mg PO DAILY 30 Days #30 tab 10/06/23 traZODone HCL 150 mg PO HS 30 Days #30 tablet 10/06/23 Calcium Carbonate [Tums] 500 mg PO AC-TID tab 11/04/23 Metoprolol Tartrate [Lopressor] 12.5 mg PO BID #60 tab 11/04/23 Allergies Allergy/AdvReac Type Severity Reaction Status Date / Time clindamycin Allergy Unknown Rash/Hives Verified 11/18/23 11:18 acetylcysteine AdvReac Anaphylaxis Verified 11/18/23 11:18 [From Mucomyst] citalopram [From Celexa] AdvReac Hallucinati Verified 11/18/23 11:18 ons diphenhydramine HCl AdvReac Rapid Verified 11/18/23 11:18 [From Benadryl] Heart Rate Review of Systems ROS Other: All systems not noted in ROS Statement are negative. <Aysha Alcocer - Last Filed: 11/18/23 11:40> ROS Other: All systems not noted in ROS Statement are negative. Constitutional: Denies: fever Eyes: Denies: eye pain ENT: Denies: ear pain Respiratory: Denies: cough, dyspnea <Raman Timmons - Last Filed: 11/18/23 14:31> ROS Statement: Those systems with pertinent positive or pertinent negative responses have been documented in the HPI. Past Medical History Past Medical History: Asthma, Cancer, Hypertension, Thyroid Disorder Additional Past Medical History / Comment(s): History of goiter status post thyroidectomy, questionable history of thyroid cancer although this is not clear, bipolar disorder, depression, history of suicidal ideations, history of drug overdose, alcoholism, seasonal rhinitis, psoriasis, breast cysts, history of broken toes in the right foot, History of Any Multi-Drug Resistant Organisms: None Reported Past Surgical History: No Surgical Hx Reported Additional Past Surgical History / Comment(s): Thyroidectomy 1999, SKIN NEVI REMOVED Past Anesthesia/Blood Transfusion Reactions: Previous Problems w/ Anesthesia, Postoperative Nausea & Vomiting (PONV) Additional Past Anesthesia/Blood Transfusion Reaction / Comment(s): Lives in a house with two roommates. ETOH. Pt no longer has a drivers license- she has had 2 DUI's. 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 She is seen at [facility]. Past Psychological History: Anxiety, Bipolar, Depression Smoking Status: Never smoker Past Alcohol Use History: Abuse, Daily, Heavy Past Drug Use History: None Reported - Past Family History Father Family Medical History: Cancer Additional Family Medical History / Comment(s): Father at age 64 of esophageal cancer. Father was an alcoholic and had cirrhosis of the liver. Mother Family Medical History: Cancer Additional Family Medical History / Comment(s): Mother of breast cancer at age 42yrs. <Aysha Alcocer - Last Filed: 11/18/23 11:40> General Exam Limitations: no limitations <Aysha Alcocer - Last Filed: 11/18/23 11:40> Limitations: no limitations General appearance: alert, in no apparent distress Head exam: Present: normocephalic Eye exam: Present: normal appearance, PERRL ENT exam: Present: normal oropharynx Neck exam: Present: normal inspection Respiratory exam: Present: normal lung sounds bilaterally Cardiovascular Exam: Present: regular rate, normal rhythm GI/Abdominal exam: Present: soft. Absent: tenderness Extremities exam: Present: normal inspection Neurological exam: Present: alert Psychiatric exam: Present: normal affect, normal mood Skin exam: Present: normal color <Raman Timmons - Last Filed: 11/18/23 14:31> - General Exam Comments Initial Comments: Visual Physical Exam Vital signs reviewed General: Well-appearing, nontoxic, no acute distress. Head: Normocephalic, atraumatic Eyes: PERRLA, EOMI ENT: Airway patent Chest: Nonlabored breathing Skin: No visual rash, normal skin tone Neuro: Alert and oriented 3 Musculoskeletal: No gross abnormalities (Aysha Alcocer) Course Vital Signs 11/18/23 11:15 Temperature 98.0 F Pulse Rate 67 Respiratory 18 Rate Blood Pressure 109/75 O2 Sat by Pulse 94 L Oximetry Medical Decision Making <Aysha Alcocer - Last Filed: 11/18/23 11:40> - Lab Data Result diagrams: 11/18/23 12:22 11/18/23 12:22 <Raman Timmons - Last Filed: 11/18/23 14:31> - Medical Decision Making I performed the quick note portion of the exam. Electronically signed by Aysha Alcocer PA-C (Aysha Alcocer) Was pt. sent in by a medical professional or institution ([facility], [facility], urgent care, hospital, or shelter...) When possible be specific @ -No Did you speak to anyone other than the patient for history (EMS, parent, family, police, friend...)? What history was obtained from this source @ -No Did you review nursing and triage notes (agree or disagree)? Why? @ -I reviewed and agree with nursing and triage notes Were old charts reviewed (outside hosp., previous admission, EMS record, old EKG, old radiological studies, urgent care reports/EKG's, shelter records)? Report findings @ -Previous alcohol levels reviewed Differential Diagnosis (chest pain, altered mental status, abdominal pain women, abdominal pain men, vaginal bleeding, weakness, fever, dyspnea, syncope, headache, dizziness, GI bleed, back pain, seizure, CVA, palpatations, mental health, musculoskeletal)? @ -Differential Mental Health Depression, anxiety, bipolar, psychosis, schizophrenia, borderline personality, situational depression, adjustment disorder, behavioral disorder, brain tumor, malingering, substance abuse, encephalopathy, medication reaction, dementia, hypothyroidism, degenerative neurologic disorder, lupus.... This is not meant to be all-inclusive list EKG interpreted by me (3pts min.). @ -As above X-rays interpreted by me (1pt min.). @ -None done CT interpreted by me (1pt min.). @ -None done U/S interpreted by me (1pt. min.). @ -None done What testing was considered but not performed or refused? (CT, X-rays, U/S, labs)? Why? @ -None What meds were considered but not given or refused? Why? @ -None Did you discuss the management of the patient with other professionals (professionals i.e. DrNicolasa, PA, [facility], lab, RT, psych nurse, case management social worker, acoustical tile drill press operator, teacher, branch lending officer, onsite case manager)? Give summary @ -Case was discussed with Dr. Tiwari, who will admit For Dr. Briones, who admits for Dr. Castro Was smoking cessation discussed for >3mins.? @ -No Was critical care preformed (if so, how long)? @ -No Were there social determinants of health that impacted care today? How? (Homelessness, low income, unemployed, alcoholism, drug addiction, transp ortation, low edu. Level, literacy, decrease access to med. care, senior care, rehab)? @ -No Was there de-escalation of care discussed even if they declined (Discuss DNR or withdrawal of care, Hospice)? DNR status @ -No What co-morbidities impacted this encounter? (DM, HTN, Smoking, COPD, CAD, Cancer, CVA, ARF, Chemo, Hep., AIDS, mental health diagnosis, sleep apnea, morbid obesity)? @ -None Was patient admitted / discharged? Hospital course, mention meds given and route, prescriptions, significant lab abnormalities, going to OR and other pertinent info. @ -Patient is made aware of plan. Admission orders written. Undiagnosed new problem with uncertain prognosis? @ -No Drug Therapy requiring intensive monitoring for toxicity (Heparin, Nitro, Insulin, Cardizem)? @ -No Were any procedures done? @ -No Diagnosis/symptom? @ -Alcohol intoxication Acute, or Chronic, or Acute on Chronic? @ -Acute Uncomplicated (without systemic symptoms) or Complicated (systemic symptoms)? @ -default Side effects of treatment? @ -No Exacerbation, Progression, or Severe Exacerbation? @ -No Poses a threat to life or bodily function? How? (Chest pain, [place], [place], pneumonia, PE, COPD, DKA, ARF, appy, cholecystitis, CVA, Diverticulitis, Homicidal, Suicidal, threat to staff... and all critical care pts) @ -No (Raman Timmons) - Lab Data Lab Results 11/18/23 11/18/23 11/18/23 Range/Units 12:22 12:22 12:22 WBC 5.0 (3.8-10.6) k/uL RBC 4.52 (3.80-5.40) m/uL Hgb 14.9 (11.4-16.0) gm/dL Hct 44.2 (34.0-46.0) % MCV 97.9 (80.0-100.0) fL MCH 33.0 (25.0-35.0) pg MCHC 33.7 (31.0-37.0) g/dL RDW 14.8 (11.5-15.5) % Plt Count 227 (150-450) k/uL MPV 8.3 Sodium 147 H (137-145) mmol/L Potassium 4.4 (3.5-5.1) mmol/L Chloride 110 H (98-107) mmol/L Carbon Dioxide 19 L (22-30) mmol/L Anion Gap 18 mmol/L BUN 10 (7-17) mg/dL Creatinine 0.65 (0.52-1.04) mg/dL Est GFR (CKD-EPI)AfAm >90 (>60 ml/min/1.73 sqM) Est GFR (CKD-EPI)NonAf >90 (>60 ml/min/1.73 sqM) Glucose 91 (74-99) mg/dL Calcium 8.9 (8.4-10.2) mg/dL Total Bilirubin 0.5 (0.2-1.3) mg/dL AST 155 H (14-36) U/L ALT 157 H (4-34) U/L Alkaline Phosphatase 49 (38-126) U/L Total Protein 8.3 H (6.3-8.2) g/dL Albumin 5.0 (3.5-5.0) g/dL Serum Alcohol 373 H* mg/dL Influenza Type A (PCR) Not Detected (Not Detectd) Influenza Type B (PCR) Not Detected (Not Detectd) RSV (PCR) Not Detected (Not Detectd) SARS-CoV-2 (PCR) Not Detected (Not Detectd) Disposition <Aysha Alcocer - Last Filed: 11/18/23 11:40> Is patient prescribed a controlled substance at d/c from ED?: No Time of Disposition: 14:31 <Raman Timmons - Last Filed: 11/18/23 14:31> Clinical Impression: Alcohol intoxication Disposition: ADMITTED IP TO THIS HOSP Referrals: Dylon Castro MD [Primary Care Provider] - 1-2 days
[2023-11-18] MEDS ORDERED: ONDANSETRON ODT 4 MG TAB PO STA (11:43)
[2023-11-18 12:30] LABS: HCT 44.2 % (34.0-46.0); HGB 14.9 gm/dL (11.4-16.0); MCHC 33.7 g/dL (31.0-37.0); MCV 97.9 fL (80.0-100.0); Mean Platelet Volume 8.3; Platelet Count 227 k/uL (150-450); RBC 4.52 m/uL (3.80-5.40); RDW 14.8 % (11.5-15.5)
[2023-11-18 12:47] LABS: ALT 157 U/L (4-34); AST 155 U/L (14-36); African American GFR (CKD) >90 (>60 ml/min/1.73 sqM); Alkaline Phosphatase 49 U/L (38-126); Anion Gap 18 mmol/L; Blood Urea Nitrogen 10 mg/dL (7-17); Calcium 8.9 mg/dL (8.4-10.2); Carbon Dioxide 19 mmol/L (22-30); Chloride 110 mmol/L (98-107); Glucose 91 mg/dL (74-99); Non-African American GFR(CKD) >90 (>60 ml/min/1.73 sqM); Potassium 4.4 mmol/L (3.5-5.1); Sodium 147 mmol/L (137-145); Total Bilirubin 0.5 mg/dL (0.2-1.3); Total Protein 8.3 g/dL (6.3-8.2)
[2023-11-18 13:00] LABS: Alcohol 373 mg/dL
[2023-11-18] MEDS ORDERED: NALOXONE 0.4 MG/ML 1 ML VIAL IV PRN (14:31)
[2023-11-18] MEDS ORDERED: ONDANSETRON 4 MG/2 ML VIAL IVP PRN (14:31)
[2023-11-18] MEDS ORDERED: LORazepam 0.5 MG TAB PO PRN (14:35)
[2023-11-18] MEDS ORDERED: LORazepam 1 MG TAB PO PRN ×2 (14:35)
[2023-11-18] MEDS ORDERED: THIAMINE 100 MG/ML 2 ML VIAL IM STA (14:35)
[2023-11-18] MEDS ORDERED: LORazepam 2 MG/ML INJ IV PRN (14:35)
[2023-11-18] MEDS: SODIUM CHLORIDE 0.9% 1,000 ML IV SCH (15:09)
[2023-11-18] MEDS ORDERED: ALBUTEROL NEBULIZED 2.5 MG/3 ML INHALATION PRN (15:40)
[2023-11-18] MEDS ORDERED: ACETAMINOPHEN TAB 325 MG TAB PO PRN (15:40)
[2023-11-18] MEDS: ACAMPROSATE CALCIUM 333 MG TABLET.DR PO SCH ×2 (16:27→21:00)
[2023-11-18] MEDS: LORazepam 1 MG TAB PO PRN (16:31)
[2023-11-18] MEDS: CALCIUM CARBONATE 500 MG CHEWABLE PO SCH (17:57)
[2023-11-18 20:36] VITALS: RESP 16
[2023-11-18] MEDS: FAMOTIDINE 20 MG TAB PO SCH (21:00)
[2023-11-18] MEDS: traZODone HCL 50 MG TAB PO SCH (21:00)
[2023-11-18] MEDS: METOPROLOL TARTRATE 12.5 MG TAB PO SCH (21:00)
--- NOTE | 2023-11-18 22:41 | HP ---
HISTORY AND PHYSICAL CHIEF COMPLAINT: Nausea, alcohol intoxication. HISTORY OF PRESENT ILLNESS: This is a 63-year-old woman with past medical history of multiple medical problems, alcoholism, bipolar, was admitted with nausea and early withdrawal symptoms. The patient is drinking too much alcohol, the blood alcohol level was found to be 373. There is no history of any fever, rigors, or chills. PAST MEDICAL HISTORY: Reviewed include alcoholism, asthma, rest of the history and rest of the chart is also reviewed. HOME MEDICATIONS: Reviewed include trazodone, dose and rest of the medications reviewed. ALLERGIES: Clindamycin, rest of the allergies reviewed. FAMILY HISTORY: History of cancer in the family. SOCIAL HISTORY: History of alcohol abuse, no history of smoking. REVIEW OF SYSTEMS: A 14-point review is negative except as mentioned earlier. PHYSICAL EXAMINATION: VITAL SIGNS: Pulse is 68, blood pressure 110/74, and respirations 18. HEENT: Conjunctivae normal. NECK: No jugular venous distention. CARDIOVASCULAR: S1, S2 muffled. RESPIRATIONS: Diminished at the bases. No rhonchi, no crackles. ABDOMEN: Soft, nontender. LEGS: No edema, no swelling. NERVOUS SYSTEM: Nonfocal. LABORATORY DATA: Sodium 140, rest of the labs are noted. ASSESSMENT: 1. Acute alcohol intoxication and early withdrawal symptoms. 2. Hypernatremia. 3. Mild alcoholic hepatitis. 4. History of asthma. 5. Hypertension. 6. Hypothyroidism. 7. History of bipolar. RECOMMENDATIONS: This 63-year-old woman presented with multiple complex medical issues, we will monitor the patient closely. I would recommend [facility] protocol. Otherwise, watch for alcohol withdrawal symptoms. Resume home medications once they are confirmed. Alcohol cessation recommendation. Prognosis guarded because of multiple complex medical conditions, further recommendations to follow, see orders for details. MMODL / IJN: [id number] /
[2023-11-19] MEDS: SODIUM CHLORIDE 0.9% 1,000 ML IV SCH ×2 (06:22→18:37)
[2023-11-19] MEDS: LEVOTHYROXINE 75 MCG TAB PO SCH (06:25)
[2023-11-19] MEDS: CALCIUM CARBONATE 500 MG CHEWABLE PO SCH ×3 (06:26→18:38)
[2023-11-19 07:48] LABS: Basophils % (A) 1 %; Eosinophils # (A) 0.1 k/uL (0-0.7); Eosinophils % (A) 2 %; HGB 12.9 gm/dL (11.4-16.0); Lymphocytes # (A) 1.1 k/uL (1.0-4.8); Lymphocytes % (A) 33 %; MCH 32.7 pg (25.0-35.0); MCHC 33.1 g/dL (31.0-37.0); MCV 98.8 fL (80.0-100.0); Macrocytosis Slight; Mean Platelet Volume 9.2; Monocytes # (A) 0.3 k/uL (0-1.0); Monocytes % (A) 10 %; Neutrophils # (A) 1.6 k/uL (1.3-7.7); Neutrophils % (A) 49 %; Platelet Count 180 k/uL (150-450); RBC 3.95 m/uL (3.80-5.40); WBC 3.3 k/uL (3.8-10.6)
[2023-11-19 08:29] LABS: ALT 122 U/L (4-34); AST 112 U/L (14-36); African American GFR (CKD) >90 (>60 ml/min/1.73 sqM); Albumin 4.2 g/dL (3.5-5.0); Albumin/Globulin Ratio 1.4; Alkaline Phosphatase 46 U/L (38-126); Anion Gap 15 mmol/L; Blood Urea Nitrogen 13 mg/dL (7-17); Calcium 8.8 mg/dL (8.4-10.2); Carbon Dioxide 23 mmol/L (22-30); Chloride 105 mmol/L (98-107); Glucose 83 mg/dL (74-99); Non-African American GFR(CKD) 78 (>60 ml/min/1.73 sqM); Potassium 4.3 mmol/L (3.5-5.1); Sodium 143 mmol/L (137-145); Total Bilirubin 0.5 mg/dL (0.2-1.3); Total Protein 7.2 g/dL (6.3-8.2)
[2023-11-19] MEDS: ESCITALOPRAM 20 MG TAB PO SCH (09:59)
[2023-11-19] MEDS: LORATADINE 10 MG TAB PO SCH (09:59)
[2023-11-19] MEDS: FAMOTIDINE 20 MG TAB PO SCH ×2 (10:00→20:38)
[2023-11-19] MEDS: ACAMPROSATE CALCIUM 333 MG TABLET.DR PO SCH ×3 (10:00→20:39)
[2023-11-19] MEDS: FOLIC ACID 1 MG TAB PO SCH (10:00)
[2023-11-19] MEDS: METOPROLOL TARTRATE 12.5 MG TAB PO SCH ×3 (10:00→20:44)
[2023-11-19] MEDS: PANTOPRAZOLE 40 MG TABLET PO SCH (10:00)
[2023-11-19] MEDS: lamoTRIgine 100 MG TAB PO SCH (10:00)
[2023-11-19] MEDS: THIAMINE 100 MG TAB PO SCH (10:00)
[2023-11-19] MEDS: MULTIVITAMINS, THERA 1 EACH TAB PO SCH (10:00)
[2023-11-19] MEDS: FLUTICASONE 50MCG/SPRAY NASAL 16GM EA NOSTRIL SCH (10:02)
[2023-11-19] MEDS: LORazepam 1 MG TAB PO PRN ×2 (13:34→20:39)
--- NOTE | 2023-11-19 15:42 | XR ---
EXAM: XR chest 1V portable CLINICAL INDICATION:Female, 63 years old with history of chf; [facility] COMPARISON: 01/18/2023 chest x-ray, and other exams including a chest CT 01/14/[address] 03/04/2023 TECHNIQUE: Chest single view. FINDINGS: Lines/tubes/devices: None. Cardiomediastinum: Cardiac silhouette appears upper normal in size. Mildly tortuous aorta. Vasculature: Mild central congestion. Lungs/pleura: Suspect background mild chronic interstitial changes, question slightly increased interstitial opacit ies from previous which may suggest superimposed mild edema or pneumonitis. There appear to be degene rative changes of the anterior rib ends projecting over the upper lungs bilaterally, more prominent o n the left. Ovoid density previously identified in the right lung base is only vaguely seen on this s rob view portable chest x-ray; nevertheless in reviewing prior studies this represents a benign ent ity (likely herniated liver through a small [place]/diaphragmatic hernia) requiring no specific fol low-up. There is no consolidation, sizable pleural effusion or evidence of pneumothorax. Bones/soft tissues: Bony thorax appears grossly intact as seen. Mild degenerative changes of the shoulders. Truncated sydney earance of the distal left clavicle could be postoperative or chronic related to previous trauma or r esorption. IMPRESSION: Slightly increased interstitial markings, may represent chronic changes with possible mild superimpos ed edema or pneumonitis.
[2023-11-19] MEDS: traZODone HCL 50 MG TAB PO SCH (20:38)
--- NOTE | 2023-11-19 21:56 | PN ---
PROGRESS NOTE DATE OF SERVICE: 11/19/2023 SUBJECTIVE: This is 63-year-old woman who was admitted with acute alcohol intoxication and some tremors. No chest pain or palpitation. OBJECTIVE: VITAL SIGNS: Pulse 62, blood pressure 130/70, and respirations 16. CHEST: Clear. ABDOMEN: Soft. NERVOUS SYSTEM: Mild diffuse tremors. LABORATORY DATA: Noted. ASSESSMENT: 1. Acute alcohol intoxication and early delirium tremens. 2. Hypernatremia. 3. Mild alcoholic hepatitis. 4. History of asthma. 5. Hypertension. 6. Multiple complex medical issues. RECOMMENDATIONS: Recommended to continue current management and medical treatment. Repeat labs tomorrow. Portable chest x-ray. [facility] protocol. Prognosis guarded. Further recommendations to follow. MMODL / IJN: [id number] /
[2023-11-20] MEDS: CALCIUM CARBONATE 500 MG CHEWABLE PO SCH (06:32)
[2023-11-20] MEDS: LEVOTHYROXINE 75 MCG TAB PO SCH (06:32)
[2023-11-20 08:57] VITALS: BP 136/94; PULSE 63; TEMP 98
[2023-11-20] MEDS: lamoTRIgine 100 MG TAB PO SCH (09:05)
[2023-11-20] MEDS: FOLIC ACID 1 MG TAB PO SCH (09:05)
[2023-11-20] MEDS: METOPROLOL TARTRATE 12.5 MG TAB PO SCH (09:05)
[2023-11-20] MEDS: ACAMPROSATE CALCIUM 333 MG TABLET.DR PO SCH (09:05)
[2023-11-20] MEDS: THIAMINE 100 MG TAB PO SCH (09:05)
[2023-11-20] MEDS: MULTIVITAMINS, THERA 1 EACH TAB PO SCH (09:05)
[2023-11-20] MEDS: FAMOTIDINE 20 MG TAB PO SCH (09:05)
[2023-11-20] MEDS: ESCITALOPRAM 20 MG TAB PO SCH (09:06)
[2023-11-20] MEDS: PANTOPRAZOLE 40 MG TABLET PO SCH (09:06)
[2023-11-20] MEDS: LORATADINE 10 MG TAB PO SCH (09:06)
[2023-11-20] MEDS: FLUTICASONE 50MCG/SPRAY NASAL 16GM EA NOSTRIL SCH (09:11)
[2023-11-20] MEDS: SODIUM CHLORIDE 0.9% 1,000 ML IV SCH (09:11)
[2023-11-20 10:04] LABS: Basophils # (A) 0.06 X 10*3/uL (0.00-0.10); Basophils % (A) 2.2 %; Eosinophils # (A) 0.08 X 10*3/uL (0.04-0.35); Eosinophils % (A) 2.9 %; HCT 37.3 % (37.2-46.3); HGB 12.2 g/dL (12.0-15.0); Lymphocytes # (A) 1.04 X 10*3/uL (0.90-5.00); Lymphocytes % (A) 38.1 %; MCHC 32.7 g/dL (32.0-37.0); MCV 97.9 FL (80.0-97.0); Mean Platelet Volume 11.3 FL (9.5-12.2); Monocytes # (A) 0.46 X 10*3/uL (0.20-1.00); Monocytes % (A) 16.8 %; NRBC Per 100 WBC 0 X 10*3/uL (0.00-0.01); Neutrophils # (A) 1.08 X 10*3/uL (1.80-7.70); Neutrophils % (A) 39.6 %; Platelet Count 171 X 10*3/uL (140-440); RBC 3.81 X 10*6/uL (4.10-5.20); RDW 14.7 % (11.5-14.5); WBC 2.73 X 10*3/uL (4.50-10.00)
[2023-11-20 10:10] LABS: ALT 87 U/L (8-44); AST 72 U/L (13-35); Albumin 3.8 g/dL (3.8-4.9); Albumin/Globulin Ratio 1.81 Ratio (1.60-3.17); Alkaline Phosphatase 36 U/L (41-126); BUN/Creat Ratio 13.29 Ratio (12.00-20.00); Blood Urea Nitrogen 9.3 mg/dL (9.0-27.0); Calcium 8.7 mg/dL (8.7-10.3); Carbon Dioxide 26.6 mmol/L (21.6-31.8); Chloride 107 mmol/L (96-109); Globulin 2.1 g/dL (1.6-3.3); Glucose 83 mg/dL (70-110); Potassium 4.1 mmol/L (3.5-5.5); Sodium 141 mmol/L (135-145); Total Bilirubin 0.6 mg/dL (0.3-1.2); Total Protein 5.9 g/dL (6.2-8.2)
--- NOTE | 2023-11-20 11:47 | DS ---
DISCHARGE SUMMARY FINAL DIAGNOSES: 1. Acute alcohol intoxication and early delirium tremens. 2. Hyponatremia. 3. Mild alcoholic hepatitis. 4. History of asthma. 5. Hypertension. 6. Multiple complex medical issues. DISCHARGE DISPOSITION: The patient will be discharged in stable condition and guarded prognosis. HISTORY OF PRESENT ILLNESS: This 63-year-old woman was admitted with alcohol intoxication and early delirium tremens, treated symptomatically, CIWA protocol, improved significantly. Recommend the patient to follow up outpatient, alcohol cessation, and attend AA and alcohol rehab. PHYSICAL EXAMINATION: VITAL SIGNS: Stable. CARDIOVASCULAR: S1, S2. ABDOMEN: Soft. NERVOUS SYSTEM: No focal deficits. Chest x-ray is normal. I recommend Librium and to continue rest of the medications. Follow up with primary physician. See discharge reconciliation sheet for list of medications. MMODL / IJN: [id number] /
== END 2023-11-20 11:58 | disposition home or self-care (01) | DRG 775 ==
LOC: EC 11:03 → 6NMEDSUR 14:35 → OBSVTOIN 14:35 → 6NMEDSUR 16:15 → UNDODISOB 11-20 11:58
PROVIDERS: ADMIT Hospitalist; ATTEND Hospitalist
DX: F10.221 Alcohol dependence with intoxication delirium (principal); F10.231 Alcohol dependence with withdrawal delirium; K70.10 Alcoholic hepatitis without ascites; Y90.8 Blood alcohol level of 240 mg/100 ml or more; E87.0 Hyperosmolality and hypernatremia; R11.2 Nausea with vomiting, unspecified; J45.909 Unspecified asthma, uncomplicated; E89.0 Postprocedural hypothyroidism; F31.9 Bipolar disorder, unspecified; I10 Essential (primary) hypertension; Z63.72 Alcoholism and drug addiction in family; Z81.1 Family history of alcohol abuse and dependence; Z28.311 Partially vaccinated for COVID-19; Z11.52 Encounter for screening for COVID-19; Z28.21 Immunization not carried out because of patient refusal; Z79.890 Hormone replacement therapy; Z79.899 Other long term (current) drug therapy; Z88.0 Allergy status to penicillin
CPT/HCPCS: 36415; 71045; 80053; 80320; 84600; 85025; 85027; 87636; 96360; 96361; 96372; 99285

== ENCOUNTER 2023-11-21 23:21 | Emergency (ER) | payer OTHER ==
[2023-11-22] MEDS ORDERED: LORazepam 2 MG/ML INJ IV PRN ×2 (00:17)
[2023-11-22] MEDS ORDERED: THIAMINE 100 MG/ML 2 ML VIAL IM STA (00:17)
--- NOTE | 2023-11-22 01:33 | ED ---
General Adult HPI - General Source: patient, police, RN notes reviewed, old records reviewed Mode of arrival: ambulatory Limitations: no limitations <Mario Strauss - Last Filed: 11/23/23 08:32> <Rakesh Ramsay - Last Filed: 11/26/23 16:46> - General Chief complaint: Psychiatric Symptoms Stated complaint: Mental Health Time Seen by Provider: 11/21/23 23:57 - History of Present Illness Initial comments: Patient is a 63-year-old female presents emergency department for psychiatric evaluation. Was brought in and family petitioned by police for suicidal ideation with plan to jump in front of a train. States she did attempt multiple years ago. Was recently here for alcohol intoxication. States she has a history of withdrawals. States her thoughts occurred this morning. Denies any recent attempts of suicide activity. Denies any homicidal ideations, attempts, plans. Denies any visual or auditory hallucinations. she presents for further evaluation at this time. (Mario Strauss) - Related Data Home Medications Medication Instructions Recorded Confirmed Nitroglycerin Sl Tabs [Nitrostat] 0.4 mg SL Q5M PRN 05/18/23 11/22/23 Fexofenadine HCl [Debbi Allergy] 180 mg PO DAILY 08/14/23 11/22/23 Triamcinolone 0.1% Cream [Kenalog 1 applic TOPICAL BID PRN 08/15/23 11/22/23 0.1% Cream] Omeprazole Magnesium [PriLOSEC OTC] 20 mg PO DAILY 10/03/23 11/22/23 Fluticasone Nasal Dorris [Flonase 2 spr EA NOSTRIL DAILY 10/14/23 11/22/23 Nasal Dorris] Multivitamins, Thera [Multivitamin 1 tab PO DAILY 10/14/23 11/22/23 (formulary)] Metoprolol Tartrate [Lopressor] 12.5 mg PO BID 11/18/23 11/22/23 Previous Rx's Medication Instructions Recorded Albuterol Inhaler [Ventolin Hfa 2 puff INHALATION RT-Q6H PRN #1 01/20/23 Inhaler] each Acetaminophen Tab [Tylenol] 650 mg PO Q6HR PRN tab 07/19/23 Ondansetron Odt [Zofran ODT] 4 mg PO Q8HR PRN #10 tab 08/04/23 Acamprosate Calcium [Campral] 666 mg PO TID 30 Days #120 tab 10/06/23 Escitalopram [Lexapro] 20 mg PO DAILY 30 Days #30 tab 10/06/23 Folic Acid 1 mg PO DAILY 30 Days #30 tab 10/06/23 Levothyroxine Sodium [Synthroid] 150 mcg PO DAILY 30 Days #30 tab 10/06/23 Thiamine [Vitamin B-1] 100 mg PO DAILY 30 Days #30 tab 10/06/23 lamoTRIgine [LaMICtal] 100 mg PO DAILY 30 Days #30 tab 10/06/23 traZODone HCL 150 mg PO HS 30 Days #30 tablet 10/06/23 Calcium Carbonate [Tums] 500 mg PO AC-TID tab 11/04/23 chlordiazePOXIDE HCl [Librium] 25 mg PO TID 3 Days #9 capsule 11/20/23 diazePAM [Valium] 5 mg PO Q8H PRN 3 Days #9 tab 11/22/23 Allergies Allergy/AdvReac Type Severity Reaction Status Date / Time clindamycin Allergy Unknown Rash/Hives Verified 11/25/23 13:35 acetylcysteine AdvReac Anaphylaxis Verified 11/25/23 13:35 [From Mucomyst] citalopram [From Celexa] AdvReac Hallucinati Verified 11/25/23 13:35 ons diphenhydramine HCl AdvReac Rapid Verified 11/25/23 13:35 [From Benadryl] Heart Rate Review of Systems ROS Other: All systems not noted in ROS Statement are negative. <Mario Strauss - Last Filed: 11/23/23 08:32> ROS Other: All systems not noted in ROS Statement are negative. <Rakesh Ramsay - Last Filed: 11/26/23 16:46> ROS Statement: Those systems with pertinent positive or pertinent negative responses have been documented in the HPI. Review of Systems: CONST: Denies fever EYES: Denies blurry vision ENT: Denies nasal congestion C/V: Denies Chest pain RESP: Denies shortness of breath GI: Denies abdominal pain : Denies dysuria SKIN: Denies rash. MSK: Denies joint pain. NEURO: Denies headache PSYCH: Denies homicidal ideations/plans/attempts. Denies visual or auditory hallucinations. She endorses suicidal ideation, plan to jump in front of a train. Denies attempts. (Mario Strauss) Past Medical History Past Medical History: Asthma, Cancer, Hypertension, Thyroid Disorder Additional Past Medical History / Comment(s): History of goiter status post thyroidectomy, questionable history of thyroid cancer although this is not clear, bipolar disorder, depression, history of suicidal ideations, history of drug overdose, alcoholism, seasonal rhinitis, psoriasis, breast cysts, history of broken toes in the right foot, History of Any Multi-Drug Resistant Organisms: None Reported Past Surgical History: No Surgical Hx Reported Additional Past Surgical History / Comment(s): Thyroidectomy 1999, SKIN NEVI REM MELVIN Past Anesthesia/Blood Transfusion Reactions: Previous Problems w/ Anesthesia, Postoperative Nausea & Vomiting (PONV) Additional Past Anesthesia/Blood Transfusion Reaction / Comment(s): Lives in a house with two roommates. ETOH. Pt no longer has a drivers license- she has had 2 DUI's. 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 She is seen at [facility]. Past Psychological History: Anxiety, Bipolar, Depression Smoking Status: Never smoker Past Alcohol Use History: Abuse, Daily, Heavy Past Drug Use History: None Reported - Past Family History Father Family Medical History: Cancer Additional Family Medical History / Comment(s): Father at age 64 of esophageal cancer. Father was an alcoholic and had cirrhosis of the liver. Mother Family Medical History: Cancer Additional Family Medical History / Comment(s): Mother of breast cancer at age 42yrs. <Mario Strauss - Last Filed: 11/23/23 08:32> General Exam Limitations: no limitations <Mario Strauss - Last Filed: 11/23/23 08:32> - General Exam Comments Initial Comments: General: Appears in no acute distress. HEAD: Normal with no signs of head trauma. EYES: PERRLA, EOMI, conjunctiva normal, no discharge. ENT: Hearing grossly intact, normal oropharynx. RESPIRATORY: Clear breath sounds bilaterally. No wheezes, rales, or rhonchi. C/V: Regular rate and rhythm. S1 and S2 auscultated, no edema, peripheral pulses 2+ and intact throughout ABD: Abd is soft, nontender, nondistended EXT: Normal range of motion, no obvious deformity SKIN: No rashes or lesions observed on exposed skin. NEURO: Alert and oriented x 4. No evidence of current alcohol withdrawals. (Mario Strauss) Course Vital Signs 11/21/23 11/22/23 11/22/23 23:54 07:42 19:02 Temperature 98.7 F 98.4 F 98.0 F Pulse Rate 76 77 86 Respiratory 20 18 18 Rate Blood Pressure 107/70 120/74 179/80 O2 Sat by Pulse 96 97 97 Oximetry Medical Decision Making - Lab Data Result diagrams: 11/22/23 02:00 11/22/23 02:00 <Mario Strauss - Last Filed: 11/23/23 08:32> - Lab Data Result diagrams: 11/22/23 02:00 11/22/23 02:00 <Rakesh Ramsay - Last Filed: 11/26/23 16:46> - Medical Decision Making Was pt. sent in by a medical professional or institution (, PA, MOLD CARPENTER, urgent care, hospital, or custodial...) When possible be specific @ -No Did you speak to anyone other than the patient for history (EMS, parent, family, police, friend...)? What history was obtained from this source @ -No Did you review nursing and triage notes (agree or disagree)? Why? @ -I reviewed and agree with nursing and triage notes Were old charts reviewed (outside hosp., previous admission, EMS record, old EKG, old radiological studies, urgent care reports/EKG's, custodial records)? Report findings @ -Old charts reviewed Differential Diagnosis (chest pain, altered mental status, abdominal pain women, abdominal pain men, vaginal bleeding, weakness, fever, dyspnea, syncope, headache, dizziness, GI bleed, back pain, seizure, CVA, palpatations, mental health, musculoskeletal)? @ -Differential Mental Health Depression, anxiety, bipolar, psychosis, schizophrenia, borderline personality, situational depression, adjustment disorder, behavioral disorder, brain tumor, malingering, substance abuse, encephalopathy, medication reaction, dementia, hypothyroidism, degenerative neurologic disorder, lupus.... This is not meant to be all-inclusive list EKG interpreted by me (3pts min.). @ -None done X-rays interpreted by me (1pt min.). @ -None done CT interpreted by me (1pt min.). @ -None done U/S interpreted by me (1pt. min.). @ -None done What testing was considered but not performed or refused? (CT, X-rays, U/S, labs)? Why? @ -None What meds were considered but not given or refused? Why? @ -None Did you discuss the management of the patient with other professionals (professionals i.e. DrNicolasa, PA, MOLD CARPENTER, lab, RT, psych nurse, case management social worker, lumber sorter machine, teacher, staff submarine warfare officer, field nurse case manager)? Give summary @ -EPS notified of the consult Was smoking cessation discussed for >3mins.? @ -No Was critical care preformed (if so, how long)? @ -No Were there social determinants of health that impacted care today? How? (Homelessness, low income, unemployed, alcoholism, drug addiction, transportation, low edu. Level, literacy, decrease access to med. care, shelter, rehab)? @ -No Was there de-escalation of care discussed even if they declined (Discuss DNR or withdrawal of care, Hospice)? DNR status @ -No What co-morbidities impacted this encounter? (DM, HTN, Smoking, COPD, CAD, Cancer, CVA, ARF, Chemo, Hep., AIDS, mental health diagnosis, sleep apnea, morbid obesity)? @ -None Was patient admitted / discharged? Hospital course, mention meds given and route, prescriptions, significant lab abnormalities, going to OR and other pertinent info. @ -Based on the patient's presentation and physical exam, I do believe she requires psychiatric evaluation. Sitter was ordered. Suicide precautions ordered. She was placed on alcohol withdrawal protocol with CIWA. BAT is elevated to 0.169. Vital signs within acceptable limits. No active symptoms of withdrawal. UDS is still pending. Patient is medically cleared for evaluation by psychiatry when sober. Disposition is pending psychiatric evaluation. EPS notified of the consult. Patient eventually evaluated by EPS and determined she does not meet inpatient criteria. She was discharged home. Undiagnosed new problem with uncertain prognosis? @ -No Drug Therapy requiring intensive monitoring for toxicity (Heparin, Nitro, Insulin, Cardizem)? @ -No Were any procedures done? @ -No Diagnosis/symptom? @ -Alcohol intoxication, encounter for psychiatric evaluation, anxiety Acute, or Chronic, or Acute on Chronic? @ -Acute Uncomplicated (without systemic symptoms) or Complicated (systemic symptoms)? @ -Complicated Side effects of treatment? @ -none Exacerbation, Progression, or Severe Exacerbation] @ -no Poses a threat to life or bodily function? @ -Unlikely (Mario Strauss) 63 female to the emergency department for psychiatric evaluation. Patient is deemed stable for discharge home (Rakesh Ramsay) - Lab Data Lab Results 11/22/23 11/22/23 11/22/23 Range/Units 02:00 02:00 02:05 WBC 4.4 (3.8-10.6) k/uL RBC 4.21 (3.80-5.40) m/uL Hgb 13.9 (11.4-16.0) gm/dL Hct 41.4 (34.0-46.0) % MCV 98.3 (80.0-100.0) fL MCH 33.1 (25.0-35.0) pg MCHC 33.7 (31.0-37.0) g/dL RDW 14.4 (11.5-15.5) % Plt Count 197 (150-450) k/uL MPV 8.7 Neutrophils % 59 % Lymphocytes % 28 % Monocytes % 7 % Eosinophils % 3 % Basophils % 1 % Neutrophils # 2.6 (1.3-7.7) k/uL Lymphocytes # 1.3 (1.0-4.8) k/uL Monocytes # 0.3 (0-1.0) k/uL Eosinophils # 0.1 (0-0.7) k/uL Basophils # 0.1 (0-0.2) k/uL Sodium 142 (137-145) mmol/L Potassium 4.3 (3.5-5.1) mmol/L Chloride 108 H (98-107) mmol/L Carbon Dioxide 22 (22-30) mmol/L Anion Gap 12 mmol/L BUN 12 (7-17) mg/dL Creatinine 0.66 (0.52-1.04) mg/dL Est GFR (CKD-EPI)AfAm >90 (>60 ml/min/1.73 sqM) Est GFR (CKD-EPI)NonAf >90 (>60 ml/min/1.73 sqM) Glucose 89 (74-99) mg/dL Calcium 9.0 (8.4-10.2) mg/dL Total Bilirubin 0.5 (0.2-1.3) mg/dL AST 92 H (14-36) U/L ALT 92 H (4-34) U/L Alkaline Phosphatase 40 (38-126) U/L Total Protein 7.6 (6.3-8.2) g/dL Albumin 4.5 (3.5-5.0) g/dL Urine Opiates Screen (NotDetected) Ur Oxycodone Screen (NotDetected) Urine Methadone Screen (NotDetected) Ur Barbiturates Screen (NotDetected) U Tricyclic Antidepress (NotDetected) Ur Phencyclidine Scrn (NotDetected) Ur Amphetamines Screen (NotDetected) U Methamphetamines Scrn (NotDetected) U Benzodiazepines Scrn (NotDetected) Urine Cocaine Screen (NotDetected) U Marijuana (THC) Screen (NotDetected) Influenza Type A (PCR) Not Detected (Not Detectd) Influenza Type B (PCR) Not Detected (Not Detectd) RSV (PCR) Not Detected (Not Detectd) SARS-CoV-2 (PCR) Not Detected (Not Detectd) 11/22/23 Range/Units 14:16 WBC (3.8-10.6) k/uL RBC (3.80-5.40) m/uL Hgb (11.4-16.0) gm/dL Hct (34.0-46.0) % MCV (80.0-100.0) fL MCH (25.0-35.0) pg MCHC (31.0-37.0) g/dL RDW (11.5-15.5) % Plt Count (150-450) k/uL MPV Neutrophils % % Lymphocytes % % Monocytes % % Eosinophils % % Basophils % % Neutrophils # (1.3-7.7) k/uL Lymphocytes # (1.0-4.8) k/uL Monocytes # (0-1.0) k/uL Eosinophils # (0-0.7) k/uL Basophils # (0-0.2) k/uL Sodium (137-145) mmol/L Potassium (3.5-5.1) mmol/L Chloride (98-107) mmol/L Carbon Dioxide (22-30) mmol/L Anion Gap mmol/L BUN (7-17) mg/dL Creatinine (0.52-1.04) mg/dL Est GFR (CKD-EPI)AfAm (>60 ml/min/1.73 sqM) Est GFR (CKD-EPI)NonAf (>60 ml/min/1.73 sqM) Glucose (74-99) mg/dL Calcium (8.4-10.2) mg/dL Total Bilirubin (0.2-1.3) mg/dL AST (14-36) U/L ALT (4-34) U/L Alkaline Phosphatase (38-126) U/L Total Protein (6.3-8.2) g/dL Albumin (3.5-5.0) g/dL Urine Opiates Screen Not Detected (NotDetected) Ur Oxycodone Screen Not Detected (NotDetected) Urine Methadone Screen Not Detected (NotDetected) Ur Barbiturates Screen Not Detected (NotDetected) U Tricyclic Antidepress Not Detected (NotDetected) Ur Phencyclidine Scrn Not Detected (NotDetected) Ur Amphetamines Screen Not Detected (NotDetected) U Methamphetamines Scrn Not Detected (NotDetected) U Benzodiazepines Scrn Detected H (NotDetected) Urine Cocaine Screen Not Detected (NotDetected) U Marijuana (THC) Screen Not Detected (NotDetected) Influenza Type A (PCR) (Not Detectd) Influenza Type B (PCR) (Not Detectd) RSV (PCR) (Not Detectd) SARS-CoV-2 (PCR) (Not Detectd) Disposition <Mario Strauss - Last Filed: 11/23/23 08:32> Is patient prescribed a controlled substance at d/c from ED?: No Time of Disposition: 17:20 <Rakesh Ramsay - Last Filed: 11/26/23 16:46> Clinical Impression: Alcohol intoxication, Acute anxiety, Alcohol poisoning Disposition: HOME SELF-CARE Condition: Fair Instructions (If sedation given, give patient instructions): Abuse of Alcohol (ED) Prescriptions: diazePAM [Valium] 5 mg PO Q8H PRN 3 Days #9 tab PRN Reason: Anxiety Referrals: None,Stated [Primary Care Provider] - 1-2 days
[2023-11-22 02:15] LABS: Basophils # (A) 0.1 k/uL (0-0.2); Basophils % (A) 1 %; Eosinophils # (A) 0.1 k/uL (0-0.7); Eosinophils % (A) 3 %; HCT 41.4 % (34.0-46.0); HGB 13.9 gm/dL (11.4-16.0); Lymphocytes # (A) 1.3 k/uL (1.0-4.8); Lymphocytes % (A) 28 %; MCH 33.1 pg (25.0-35.0); MCHC 33.7 g/dL (31.0-37.0); MCV 98.3 fL (80.0-100.0); Mean Platelet Volume 8.7; Monocytes # (A) 0.3 k/uL (0-1.0); Monocytes % (A) 7 %; Neutrophils # (A) 2.6 k/uL (1.3-7.7); Neutrophils % (A) 59 %; Platelet Count 197 k/uL (150-450); RBC 4.21 m/uL (3.80-5.40); RDW 14.4 % (11.5-15.5); WBC 4.4 k/uL (3.8-10.6)
[2023-11-22 02:24] LABS: ALT 92 U/L (4-34); African American GFR (CKD) >90 (>60 ml/min/1.73 sqM); Albumin 4.5 g/dL (3.5-5.0); Anion Gap 12 mmol/L; Blood Urea Nitrogen 12 mg/dL (7-17); Carbon Dioxide 22 mmol/L (22-30); Chloride 108 mmol/L (98-107); Glucose 89 mg/dL (74-99); Non-African American GFR(CKD) >90 (>60 ml/min/1.73 sqM); Sodium 142 mmol/L (137-145); Total Bilirubin 0.5 mg/dL (0.2-1.3); Total Protein 7.6 g/dL (6.3-8.2)
[2023-11-22 02:32] LABS: AST 92 U/L (14-36); Alkaline Phosphatase 40 U/L (38-126); Potassium 4.3 mmol/L (3.5-5.1)
[2023-11-22] MEDS: LORazepam 2 MG/ML INJ IV PRN ×2 (06:11→10:32)
[2023-11-22 07:51] VITALS: RESP 18
[2023-11-22] MEDS ORDERED: ONDANSETRON 4 MG/2 ML VIAL IVP STA (10:24)
[2023-11-22 16:09] LABS: Amphetamine Screen,Urine Not Detected (NotDetected); Barbiturate Screen,Urine Not Detected (NotDetected); Benzodiazepines Screen,Urine Detected (NotDetected); Cocaine Screen,Urine Not Detected (NotDetected); Methadone Screen, Urine Not Detected (NotDetected); Opiate Screen,Urine Not Detected (NotDetected); Oxycodone Screen, Urine Not Detected (NotDetected); Phencyclidine Screen,Urine Not Detected (NotDetected); Tricyclic Antidepressant,Urine Not Detected (NotDetected); Urn Cannabinoid Scrn Not Detected (NotDetected)
[2023-11-22] MEDS ORDERED: SODIUM CHLORIDE 0.9% 1,000 ML IV STA (17:15)
[2023-11-22] MEDS ORDERED: diazePAM 5 MG TAB PO STA (17:19)
[2023-11-22] MEDS ORDERED: ONDANSETRON 4 MG ODT STARTER PACK 2 TAB BTL PO STA (17:19)
[2023-11-22] MEDS ORDERED: ONDANSETRON ODT 4 MG TAB PO STA (17:19)
[2023-11-22 19:19] VITALS: BP 179/80; PULSE 86; TEMP 98
[2023-11-23] MEDS ORDERED: THIAMINE 100 MG TAB PO SCH (09:00)
== END 2023-11-22 19:55 | disposition home or self-care (01) ==
LOC: EC 23:21
DX: F41.9 Anxiety disorder, unspecified (principal); T51.0X1A Toxic effect of ethanol, accidental (unintentional), initial encounter; F10.129 Alcohol abuse with intoxication, unspecified; J45.909 Unspecified asthma, uncomplicated; E07.9 Disorder of thyroid, unspecified; I10 Essential (primary) hypertension; Z79.899 Other long term (current) drug therapy; Z20.822 Contact with and (suspected) exposure to COVID-19; Z88.1 Allergy status to other antibiotic agents; Z88.8 Allergy status to other drugs, medicaments and biological substances
CPT/HCPCS: 82075; 36415; 80053; 85025; 80306; 87636; 99285; 96374; 96375 ×2; 96376; 96361; 96372; J2060; J3411; J3360; J2405; S0119

== ENCOUNTER 2023-11-25 13:29 | Emergency (ER) | payer OTHER ==
[2023-11-25 13:45] VITALS: BP 115/77; PULSE 59; RESP 20; TEMP 97.5
[2023-11-25 13:55] LABS: Basophils % (A) 1 %; Eosinophils # (A) 0.1 k/uL (0-0.7); Eosinophils % (A) 4 %; HCT 40.3 % (34.0-46.0); HGB 13.7 gm/dL (11.4-16.0); Lymphocytes # (A) 1.3 k/uL (1.0-4.8); Lymphocytes % (A) 35 %; MCH 33.9 pg (25.0-35.0); MCV 99.8 fL (80.0-100.0); Macrocytosis Slight; Mean Platelet Volume 8.4; Monocytes # (A) 0.2 k/uL (0-1.0); Monocytes % (A) 6 %; Neutrophils # (A) 1.8 k/uL (1.3-7.7); Neutrophils % (A) 50 %; Platelet Count 211 k/uL (150-450); RBC 4.04 m/uL (3.80-5.40); RDW 14.8 % (11.5-15.5); WBC 3.6 k/uL (3.8-10.6)
[2023-11-25 14:24] LABS: ALT 64 U/L (4-34); AST 62 U/L (14-36); African American GFR (CKD) >90 (>60 ml/min/1.73 sqM); Albumin 4.2 g/dL (3.5-5.0); Alkaline Phosphatase 40 U/L (38-126); Anion Gap 9 mmol/L; Blood Urea Nitrogen 11 mg/dL (7-17); Calcium 8.9 mg/dL (8.4-10.2); Carbon Dioxide 26 mmol/L (22-30); Chloride 113 mmol/L (98-107); Glucose 85 mg/dL (74-99); Non-African American GFR(CKD) >90 (>60 ml/min/1.73 sqM); Potassium 3.6 mmol/L (3.5-5.1); Sodium 148 mmol/L (137-145); Total Bilirubin 0.4 mg/dL (0.2-1.3); Total Protein 7.1 g/dL (6.3-8.2)
[2023-11-25 15:02] LABS: Alcohol 334 mg/dL
== END 2023-11-25 15:58 | disposition left against medical advice (07) ==
LOC: EC 13:29
DX: Z53.21 Procedure and treatment not carried out due to patient leaving prior to being seen by health care provider (principal)
CPT/HCPCS: 36415; 80053; 85025; 99499; G0480; 80320

== ENCOUNTER 2023-11-27 20:44 | Observation (INO) | payer OTHER ==
[2023-11-27] MEDS ORDERED: LORazepam 2 MG/ML INJ IV PRN ×2 (21:16)
--- NOTE | 2023-11-27 21:16 | ED ---
Alcohol HPI - General Chief Complaint: Alcohol Stated Complaint: ETOH, suicidal Time Seen by Provider: 11/27/23 20:45 Source: patient, EMS, RN notes reviewed, old records reviewed Mode of arrival: EMS Limitations: no limitations - History of Present Illness Initial Comments: This is a 63-year-old female to the emergency department for evaluation today. Patient presents today for evaluation of severe distress altered mental status acting inappropriately. 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 Visits for Alcohol Intoxication?: Yes Recent Trauma: No Associated Symptoms: denies other symptoms Treatments Prior to Arrival: none Chronic Alcohol Use: Yes - Related Data Home Medications Medication Instructions Recorded Confirmed Nitroglycerin Sl Tabs [Nitrostat] 0.4 mg SL Q5M PRN 05/18/23 11/27/23 Fexofenadine HCl [Debbi Allergy] 180 mg PO DAILY 08/14/23 11/27/23 Triamcinolone 0.1% Cream [Kenalog 1 applic TOPICAL BID PRN 08/15/23 11/27/23 0.1% Cream] Omeprazole Magnesium [PriLOSEC OTC] 20 mg PO DAILY 10/03/23 11/27/23 Fluticasone Nasal [place] [Flonase 2 spr EA NOSTRIL DAILY 10/14/23 11/27/23 Nasal [place]] Multivitamins, Thera [Multivitamin 1 tab PO DAILY 10/14/23 11/27/23 (formulary)] Metoprolol Tartrate [Lopressor] 12.5 mg PO BID 11/18/23 11/27/23 Previous Rx's Medication Instructions Recorded Albuterol Inhaler [Ventolin Hfa 2 puff INHALATION RT-Q6H PRN #1 01/20/23 Inhaler] each Acetaminophen Tab [Tylenol] 650 mg PO Q6HR PRN tab 07/19/23 Ondansetron Odt [Zofran ODT] 4 mg PO Q8HR PRN #10 tab 08/04/23 Acamprosate Calcium [Campral] 666 mg PO TID 30 Days #120 tab 10/06/23 Escitalopram [Lexapro] 20 mg PO DAILY 30 Days #30 tab 10/06/23 Folic Acid 1 mg PO DAILY 30 Days #30 tab 10/06/23 Levothyroxine Sodium [Synthroid] 150 mcg PO DAILY 30 Days #30 tab 10/06/23 Thiamine [Vitamin B-1] 100 mg PO DAILY 30 Days #30 tab 10/06/23 lamoTRIgine [LaMICtal] 100 mg PO DAILY 30 Days #30 tab 10/06/23 traZODone HCL 150 mg PO HS 30 Days #30 tablet 10/06/23 Calcium Carbonate [Tums] 500 mg PO AC-TID tab 11/04/23 diazePAM [Valium] 5 mg PO Q8H PRN 3 Days #9 tab 11/22/23 Allergies Allergy/AdvReac Type Severity Reaction Status Date / Time clindamycin Allergy Unknown Rash/Hives Verified 11/27/23 21:02 acetylcysteine AdvReac Anaphylaxis Verified 11/27/23 21:02 [From Mucomyst] citalopram [From Celexa] AdvReac Hallucinati Verified 11/27/23 21:02 ons diphenhydramine HCl AdvReac Rapid Verified 11/27/23 21:02 [From Benadryl] Heart Rate Review of Systems ROS Statement: Those systems with pertinent positive or pertinent negative responses have been documented in the HPI. ROS Other: All systems not noted in ROS Statement are negative. Past Medical History Past Medical History: Asthma, Cancer, Hypertension, Thyroid Disorder Additional Past Medical History / Comment(s): History of goiter status post thyroidectomy, questionable history of thyroid cancer although this is not clear, bipolar disorder, depression, history of suicidal ideations, history of drug overdose, alcoholism, seasonal rhinitis, psoriasis, breast cysts, history of broken toes in the right foot, History of Any Multi-Drug Resistant Organisms: None Reported Past Surgical History: No Surgical Hx Reported Additional Past Surgical History / Comment(s): Thyroidectomy 1999, SKIN NEVI REMOVED Past Anesthesia/Blood Transfusion Reactions: Previous Problems w/ Anesthesia, Postoperative Nausea & Vomiting (PONV) Additional Past Anesthesia/Blood Transfusion Reaction / Comment(s): Lives in a house with two roommates. ETOH. Pt no longer has a drivers license- she has had 2 DUI's. 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 She is seen at [facility]. Past Psychological History: Anxiety, Bipolar, Depression Smoking Status: Never smoker Past Alcohol Use History: Abuse, Daily, Heavy Past Drug Use History: None Reported - Past Family History Father Family Medical History: Cancer Additional Family Medical History / Comment(s): Father at age 64 of esophageal cancer. Father was an alcoholic and had cirrhosis of the liver. Mother Family Medical History: Cancer Additional Family Medical History / Comment(s): Mother of breast cancer at age 42yrs. General Exam Limitations: altered mental status, physical limitation General appearance: appears intoxicated, anxious, lethargic, in distress Head exam: Present: atraumatic, normocephalic, normal inspection Eye exam: Present: normal appearance, PERRL, EOMI. Absent: scleral icterus, conjunctival injection, periorbital swelling ENT exam: Present: normal exam, mucous membranes moist Neck exam: Present: normal inspection. Absent: tenderness, meningismus, l ymphadenopathy Respiratory exam: Present: normal lung sounds bilaterally. Absent: respiratory distress, wheezes, rales, rhonchi, stridor Cardiovascular Exam: Present: regular rate, normal rhythm, normal heart sounds. Absent: systolic murmur, diastolic murmur, rubs, gallop, clicks GI/Abdominal exam: Present: soft, normal bowel sounds. Absent: distended, tenderness, guarding, rebound, rigid Extremities exam: Present: normal inspection, full ROM, normal capillary refill. Absent: tenderness, pedal edema, joint swelling, calf tenderness Back exam: Present: normal inspection Neurological exam: Present: alert, oriented X3, CN II-XII intact Psychiatric exam: Present: normal affect, normal mood Skin exam: Present: warm, dry, intact, normal color. Absent: rash Course Vital Signs 11/27/23 11/27/23 11/27/23 20:53 21:46 23:00 Temperature 98.2 F Pulse Rate 63 73 Respiratory 18 18 20 Rate Blood Pressure 137/95 142/95 128/83 O2 Sat by Pulse 95 95 96 Oximetry - Reevaluation(s) Reevaluation #1: 11/27/23 22:25 Medical record is reviewed Reevaluation #2: 11/27/23 22:27 Patient has no change in symptoms here in the ER Reevaluation #3: 11/27/23 22:27 Patient informed of results and questions answered Reevaluation #4: 11/27/23 22:27 Was pt. sent in by a medical professional or institution (EDY Riley, SWEET GOODS MACHINE OPERATOR, urgent care, hospital, or senior living...) When possible be specific @ -no Did you speak to anyone other than the patient for history (EMS, parent, family, police, friend...)? What history was obtained from this source @ -no Did you review nursing and triage notes (agree or disagree)? Why? @ -agree Are old charts reviewed (outside hosp., previous admission, EMS record, old EKG, old radiological studies, urgent care reports/EKG's, senior living records)? Report findings @ -yes Differential Diagnosis (chest pain, altered mental status, abdominal pain women, abdominal pain men, vaginal bleeding, weakness, fever, dyspnea, syncope, headache, dizziness, GI bleed, back pain, seizure, CVA, palpatations, mental health, musculoskeletal)? @ -prior EKG interpreted by me (3pts min.). @ -no X-rays interpreted by me (1pt min.). @ -no CT interpreted by me (1pt min.). @ -no U/S interpreted by me (1pt. min.). @ -no What testing was considered but not performed or refused? (CT, X-rays, U/S, labs)? Why? @ -none What meds were considered but not given or refused? Why? @ -none Did you discuss the management of the patient with other professionals (professionals i.e. EDY Riley, SWEET GOODS MACHINE OPERATOR, lab, RT, psych nurse, clinical social work therapist, weeder, teacher, physics technical officer, shelter case manager)? Give summary @ -no Was smoking cessation discussed for >3mins.? @ -no Were there social determinants of health that impacted care today? How? (Homelessness, low income, unemployed, alcoholism, drug addiction, transportati on, low edu. Level, literacy, decrease access to med. care, fci, rehab)? @ -none Was there de-escalation of care discussed even if they declined (Discuss DNR or withdrawal of care, Hospice)? DNR status @ -no What co-morbidities impacted this encounter? (DM, HTN, Smoking, COPD, CAD, Cancer, CVA, ARF, Chemo, Hep., AIDS, mental health diagnosis, sleep apnea, morbid obesity)? @ -none Was patient admitted / discharged? Hospital course, mention meds given and route, prescriptions, significant lab abnormalities, going to OR and other pertinent info. @ - 63 female to the emergency department for evaluation of severe alcohol intoxication and hypernatremia. Patient will be admitted for altered mental status Admitted Was critical care preformed (if so, how long)? @ -no Undiagnosed new problem with uncertain prognosis? @ -no Drug Therapy requiring intensive monitoring for toxicity (Heparin, Nitro, Insulin, Cardizem)? @ -no Were any procedures done? @ -no Diagnosis/symptom? @ -Altered mental status, alcohol intoxication Acute, or Chronic, or Acute on Chronic? @ -Acute Uncomplicated (without systemic symptoms) or Complicated (systemic symptoms)? @ -Complicated Side effects of treatment? @ -no Exacerbation, Progression, or Severe Exacerbation? @ -exacerbation Poses a threat to life or bodily function? How? (Chest pain, USA, ND, pneumonia, PE, COPD, DKA, ARF, appy, cholecystitis, CVA, Diverticulitis, Homicidal, Suicidal, threat to staff... and all critical care pts) @ -yes significant alcohol intoxication Reevaluation #5: 11/27/23 22:28 Differential Altered Mental Status: Hypoglycemia, DKA, hypercapnia, ETOH, overdose, CO poisoning, trauma, myxedema coma, HTN encephalopathy, infection, encephalitis, psychosis, intercranial h emorrhage, hepatic encephalopathy, meningitis, CVA, this is not meant to be an all-inclusive list - Consultations Consultation #1: Spoke with Dr. Brantley who agrees to admit this patient Medical Decision Making - Medical Decision Making 63 female to the emergency department for evaluation of severe alcohol intoxication and hypernatremia. Patient will be admitted for altered mental status - Lab Data Result diagrams: 11/29/23 05:15 11/29/23 05:15 Lab Results 11/27/23 11/27/23 Range/Units 21:25 21:25 WBC 3.9 (3.8-10.6) k/uL RBC 4.23 (3.80-5.40) m/uL Hgb 14.2 (11.4-16.0) gm/dL Hct 41.6 (34.0-46.0) % MCV 98.3 (80.0-100.0) fL MCH 33.6 (25.0-35.0) pg MCHC 34.2 (31.0-37.0) g/dL RDW 14.9 (11.5-15.5) % Plt Count 187 (150-450) k/uL MPV 8.5 Neutrophils % 56 % Lymphocytes % 33 % Monocytes % 6 % Eosinophils % 2 % Basophils % 1 % Neutrophils # 2.2 (1.3-7.7) k/uL Lymphocytes # 1.3 (1.0-4.8) k/uL Monocytes # 0.2 (0-1.0) k/uL Eosinophils # 0.1 (0-0.7) k/uL Basophils # 0.0 (0-0.2) k/uL Sodium 150 H (137-145) mmol/L Potassium 3.9 (3.5-5.1) mmol/L Chloride 112 H (98-107) mmol/L Carbon Dioxide 22 (22-30) mmol/L Anion Gap 16 mmol/L BUN 10 (7-17) mg/dL Creatinine 0.65 (0.52-1.04) mg/dL Est GFR (CKD-EPI)AfAm >90 (>60 ml/min/1.73 sqM) Est GFR (CKD-EPI)NonAf >90 (>60 ml/min/1.73 sqM) Glucose 90 (74-99) mg/dL Calcium 9.2 (8.4-10.2) mg/dL Phosphorus 4.3 (2.5-4.5) mg/dL Magnesium 1.8 (1.6-2.3) mg/dL Total Bilirubin 0.4 (0.2-1.3) mg/dL AST 64 H (14-36) U/L ALT 59 H (4-34) U/L Alkaline Phosphatase 51 (38-126) U/L Total Protein 7.9 (6.3-8.2) g/dL Albumin 4.7 (3.5-5.0) g/dL Lipase 114 (23-300) U/L Serum Alcohol 357 H* mg/dL Disposition Clinical Impression: Alcoholism /alcohol abuse, Acute anxiety, Psychosis, Alcohol poisoning, Dehy dration, Hypernatremia, Altered mental status Disposition: ADMITTED IP TO THIS HOSP Condition: Serious Is patient prescribed a controlled substance at d/c from ED?: No Time of Disposition: 22:30
[2023-11-27 21:33] LABS: Basophils % (A) 1 %; Eosinophils # (A) 0.1 k/uL (0-0.7); Eosinophils % (A) 2 %; HCT 41.6 % (34.0-46.0); HGB 14.2 gm/dL (11.4-16.0); Lymphocytes # (A) 1.3 k/uL (1.0-4.8); Lymphocytes % (A) 33 %; MCH 33.6 pg (25.0-35.0); MCHC 34.2 g/dL (31.0-37.0); MCV 98.3 fL (80.0-100.0); Mean Platelet Volume 8.5; Monocytes # (A) 0.2 k/uL (0-1.0); Monocytes % (A) 6 %; Neutrophils # (A) 2.2 k/uL (1.3-7.7); Neutrophils % (A) 56 %; Platelet Count 187 k/uL (150-450); RBC 4.23 m/uL (3.80-5.40); RDW 14.9 % (11.5-15.5); WBC 3.9 k/uL (3.8-10.6)
[2023-11-27] MEDS: SODIUM CHLORIDE 0.9% 1,000 ML IV STA (21:47)
[2023-11-27 21:56] LABS: ALT 59 U/L (4-34); AST 64 U/L (14-36); African American GFR (CKD) >90 (>60 ml/min/1.73 sqM); Albumin 4.7 g/dL (3.5-5.0); Alkaline Phosphatase 51 U/L (38-126); Anion Gap 16 mmol/L; Blood Urea Nitrogen 10 mg/dL (7-17); Calcium 9.2 mg/dL (8.4-10.2); Carbon Dioxide 22 mmol/L (22-30); Chloride 112 mmol/L (98-107); Glucose 90 mg/dL (74-99); Lipase 114 U/L (23-300); Magnesium 1.8 mg/dL (1.6-2.3); Non-African American GFR(CKD) >90 (>60 ml/min/1.73 sqM); Phosphorus 4.3 mg/dL (2.5-4.5); Potassium 3.9 mmol/L (3.5-5.1); Sodium 150 mmol/L (137-145); Total Bilirubin 0.4 mg/dL (0.2-1.3); Total Protein 7.9 g/dL (6.3-8.2)
[2023-11-27 22:14] LABS: Alcohol 357 mg/dL
[2023-11-27] MEDS ORDERED: NALOXONE 0.4 MG/ML 1 ML VIAL IV PRN (22:22)
[2023-11-27] MEDS: SODIUM CHLORIDE 0.9% 1,000 ML IV SCH (23:23)
[2023-11-28] MEDS: LORazepam 2 MG/ML INJ IV PRN (00:37)
[2023-11-28 05:52] LABS: Basophils % (A) 1 %; Eosinophils # (A) 0.1 k/uL (0-0.7); Eosinophils % (A) 3 %; HCT 37.1 % (34.0-46.0); HGB 12.5 gm/dL (11.4-16.0); Lymphocytes # (A) 1.1 k/uL (1.0-4.8); Lymphocytes % (A) 38 %; MCH 33.7 pg (25.0-35.0); MCHC 33.7 g/dL (31.0-37.0); MCV 99.9 fL (80.0-100.0); Macrocytosis Slight; Mean Platelet Volume 8.8; Monocytes # (A) 0.2 k/uL (0-1.0); Monocytes % (A) 8 %; Neutrophils # (A) 1.3 k/uL (1.3-7.7); Neutrophils % (A) 47 %; Platelet Count 160 k/uL (150-450); RBC 3.71 m/uL (3.80-5.40); WBC 2.8 k/uL (3.8-10.6)
[2023-11-28 06:09] LABS: ALT 51 U/L (4-34); AST 56 U/L (14-36); African American GFR (CKD) >90 (>60 ml/min/1.73 sqM); Albumin 3.9 g/dL (3.5-5.0); Alkaline Phosphatase 40 U/L (38-126); Anion Gap 10 mmol/L; Blood Urea Nitrogen 8 mg/dL (7-17); Calcium 8.2 mg/dL (8.4-10.2); Carbon Dioxide 25 mmol/L (22-30); Chloride 109 mmol/L (98-107); Glucose 84 mg/dL (74-99); Lipase 82 U/L (23-300); Magnesium 1.5 mg/dL (1.6-2.3); Non-African American GFR(CKD) >90 (>60 ml/min/1.73 sqM); Phosphorus 3.9 mg/dL (2.5-4.5); Sodium 144 mmol/L (137-145); Total Bilirubin 0.5 mg/dL (0.2-1.3); Total Protein 6.6 g/dL (6.3-8.2)
[2023-11-28 06:25] LABS: Potassium 3.8 mmol/L (3.5-5.1)
[2023-11-28] MEDS: PANTOPRAZOLE 40 MG/10 ML VIAL IV SCH (08:19)
[2023-11-28] MEDS: FOLIC ACID 1 MG TAB PO SCH (08:19)
[2023-11-28] MEDS: MULTIVITAMINS, THERA 1 EACH TAB PO SCH (08:19)
[2023-11-28] MEDS: ONDANSETRON 4 MG/2 ML VIAL IVP PRN (08:19)
[2023-11-28] MEDS: THIAMINE 100 MG TAB PO SCH (08:19)
[2023-11-28] MEDS ORDERED: FOLIC ACID 1 MG TAB PO SCH (09:00)
[2023-11-28] MEDS ORDERED: ONDANSETRON ODT 4 MG TAB PO PRN (09:00)
[2023-11-28] MEDS ORDERED: THIAMINE 100 MG TAB PO SCH (09:00)
[2023-11-28] MEDS ORDERED: MULTIVITAMINS, THERA 1 EACH TAB PO SCH (09:00)
[2023-11-28] MEDS: FLUTICASONE 50MCG/SPRAY NASAL 16GM EA NOSTRIL SCH (09:50)
[2023-11-28] MEDS: LORATADINE 10 MG TAB PO SCH (09:50)
[2023-11-28] MEDS: lamoTRIgine 100 MG TAB PO SCH (09:50)
[2023-11-28] MEDS: METOPROLOL TARTRATE 12.5 MG TAB PO SCH (09:50)
[2023-11-28] MEDS: ESCITALOPRAM 20 MG TAB PO SCH (09:50)
[2023-11-28] MEDS: ACAMPROSATE CALCIUM 333 MG TABLET.DR PO SCH (09:50)
[2023-11-28] MEDS: LEVOTHYROXINE 75 MCG TAB PO SCH (09:50)
[2023-11-28] MEDS ORDERED: Magnesium Replacement Protocol 1 EACH MISC MISCELLANE PRN (10:35)
[2023-11-28] MEDS: MAGNESIUM SULFATE-D5W PMX 1 GM in DEXTROSE/WATER 1 100ML.BAG IVPB SCH (10:58)
[2023-11-28] MEDS: CALCIUM CARBONATE 500 MG CHEWABLE PO SCH (13:02)
[2023-11-28] MEDS: traZODone HCL 50 MG TAB PO SCH (20:28)
[2023-11-28] MEDS: ACETAMINOPHEN TAB 325 MG TAB PO PRN (20:28)
[2023-11-28] MEDS: diazePAM 5 MG TAB PO PRN (20:29)
--- NOTE | 2023-11-28 21:53 | PN ---
PROGRESS NOTE SUBJECTIVE: A 63-year-old white female. She came in with some psychiatric issues, severe distress, mental status altered. OBJECTIVE: VITAL SIGNS: Temperature 98.2, blood pressure 130s to 140s over 90s, O2 95, pulse 67, respiratory rate 18. Altered mental status, unclear etiology. Admit the patient. Alcohol intoxication, hyponatremia treat, CIWA protocol, fluids, etc. Free water. Monitor electrolytes, alcoholism, alcohol abuse, acute anxiety, psychosis, dehydration, hypernatremia, altered mental status. Monitor current treatments. Prognosis guarded. Follow up in next 24 to 48 hours, wait for psych consult. MMODL / IJN: [id number] /
[2023-11-29] MEDS: PANTOPRAZOLE 40 MG TABLET PO SCH (08:47)
[2023-11-29 10:13] LABS: Basophils # (A) 0.03 X 10*3/uL (0.00-0.10); Basophils % (A) 1.1 %; Eosinophils # (A) 0.12 X 10*3/uL (0.04-0.35); Eosinophils % (A) 4.3 %; HCT 35.9 % (37.2-46.3); Lymphocytes # (A) 0.86 X 10*3/uL (0.90-5.00); Lymphocytes % (A) 30.6 %; MCH 32.5 pg (27.0-32.0); MCHC 33.4 g/dL (32.0-37.0); MCV 97.3 FL (80.0-97.0); Mean Platelet Volume 10.9 FL (9.5-12.2); Monocytes # (A) 0.38 X 10*3/uL (0.20-1.00); Monocytes % (A) 13.5 %; NRBC Per 100 WBC 0 X 10*3/uL (0.00-0.01); Neutrophils # (A) 1.39 X 10*3/uL (1.80-7.70); Neutrophils % (A) 49.4 %; Platelet Count 163 X 10*3/uL (140-440); RBC 3.69 X 10*6/uL (4.10-5.20); WBC 2.81 X 10*3/uL (4.50-10.00)
[2023-11-29 11:06] LABS: ALT 45 U/L (8-44); AST 46 U/L (13-35); Albumin 3.9 g/dL (3.8-4.9); Alkaline Phosphatase 35 U/L (41-126); BUN/Creat Ratio 10.12 Ratio (12.00-20.00); Blood Urea Nitrogen 8.1 mg/dL (9.0-27.0); Calcium 8.8 mg/dL (8.7-10.3); Carbon Dioxide 25.9 mmol/L (21.6-31.8); Chloride 104 mmol/L (96-109); Globulin 2.3 g/dL (1.6-3.3); Glucose 76 mg/dL (70-110); Magnesium 2.1 mg/dL (1.5-2.4); Sodium 142 mmol/L (135-145); Total Bilirubin 0.8 mg/dL (0.3-1.2); Total Protein 6.2 g/dL (6.2-8.2)
--- NOTE | 2023-11-29 13:50 | P.CN ---
Psychiatric Consult - . Consult date: 11/29/23 Consult:: 11/29/23 13:08 IDENTIFYING DATA: This patient is a 63-year-old female with significant history of alcohol use disorder c/o acute alcohol withdrawal, depression and SI, she currently lives in a house, she is she has no kids. Unemployed HISTORY OF PRESENT ILLNESS: The patient presented to the hospital on 11/27 for acute alcohol withdrawal and depression. Consult was placed for psychiatric concerns regarding patient's alcohol abuse and suicidal ideations. Patient was seen today at the bedside. She had a sitter at her side. Patient's nurse denied any behavioral issues with patient and is not reporting suicidal ideations to her. Patient has been receiving Ativan and also Valium for alcohol withdrawal. She apparently was claiming that she is drinking half a pint of of vodka a day regularly. She has been seen several times in the ER and recently hospitalized for alcohol intoxication and abuse. Claims her last drink was before coming into the hospital. She was claiming that she is feeling some mild tremors at this time, has been receiving Valium. Patient was agreeable to speak to parts data writer today, she appeared to have a soft tone of voice, states that she is feeling chronically depressed, states that her anxiety is a bit better. She states that mainly when she drinks she feels her medications have not been helping. She states that she wants to remain on the same medications. She claims that the acamprosate has been helping with cravings. She states that she is not able to tolerate other anticraving medication such as naltrexone or Vivitrol. She states that she has been sleeping fairly at nighttime, has a poor appetite at this time. She is fairly future oriented and claims that [facility] has been helping her on a daily basis and she wants to continue on receiving help f rom them. She claims that she is try to look for a job at this time. States that she would like to get home and get back to her routine. She claims that she wants to stay alive and stay sober and get back to her years of sobriety. She is not reporting any auditory or visual hallucinations. She is denying any current suicidal or homicidal ideations intent or plan. She denies any paranoia or other delusions. PAST PSYCHIATRIC HISTORY: Patient states that he has previously diagnosed bipolar 2 disorder and alcohol use disorder. The patient reports that she used to be on several different medications including, acamprosate, Abilify, Lamictal, Lexapro, and trazodone. She is currently open with [facility]. She has had prior psychiatric admissions on W. and September 2023. She does report one pr ior attempt at suicide by jumping in front of a train in the distant past. PAST MEDICAL HISTORY: Past Medical History: Asthma, Cancer, Hypertension, Thyroid Disorder Additional Past Medical History / Comment(s): History of goiter status post thyroidectomy, questionable history of thyroid cancer although this is not clear, bipolar disorder, depression, history of suicidal ideations, history of drug overdose, alcoholism, seasonal rhinitis, psoriasis, breast cysts, history of broken toes in the right foot, hypertension, History of Any Multi-Drug Resistant Organisms: None Reported Past Surgical History: No Surgical Hx Reported Additional Past Surgical History / Comment(s): Thyroidectomy 1999, SKIN NEVI REMOVED Past Anesthesia/Blood Transfusion Reactions: Previous Problems w/ Anesthesia, Postoperative Nausea & Vomiting (PONV) Additional Past Anesthesia/Blood Transfusion Reaction / Comment(s): patient states she is homeless. Pt is normally independent. Pt is an alcoholic. She is feeling more depressed lately and ashamed of her alcoholism. PT STATED SHE IS A BINGE DRINKER AND IS A BLACK OUT DRINKER,THINKS SHE STARTED DRINKING 4-5 DAYS AGO 3 PINTS A DAY AND WHEN COMING DOWN DRANK SUAVE HAIR SPRAY Pt no longer has a drivers license- she has had 2 DUI's. 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 She is seen at [facility]. Past Psychological History: Anxiety, Bipolar, Depression Smoking Status: Never smoker Past Alcohol Use History: Abuse, Daily, Heavy Past Drug Use History: None Reported ALLERGIES: as per EMR CHEMICAL DEPENDENCY HISTORY: as per HPI. FAMILY PSYCHIATRIC/SUBSTANCE USE HISTORY: denies SOCIAL HISTORY: Patient was born and raised in [place], [place]. She is after her second 6 years ago. She has no children. She is currently unemployed. She lives in her house. 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 Currently unemployed MENTAL STATUS EXAM: General Appearance: Patient appears to be have calderon hair, glasses, stated age is alert, pleasant, and cooperative. Patient appears to have fair hygiene and grooming wearing hospital gown with fair eye contact. Behavior: Patient is calmly lying in bed without any agitated behavior. attempts to cooperate Speech: Patient's speech is fluent and nonpressured. hesitant, soft tone Mood/Affect: Patient reports their mood is "a bit better today", affect is congruent Suicidality/Homicidality: Patient vehemently denies any current suicidal or homicidal ideation Perceptions: Patient denies any visual hallucinations and denies any auditory hallucinations Though content/process: There is no evidence of any delusional thought content and thought process is linear. Future oriented Memory and concentration: AOX3, grossly intact for the purposes of this session. Can spell "WORLD" backwards Judgment and insight: Chronically poor IMPRESSIONS: Alcohol use disorder, severe dependence with alcohol withdrawal History of bipolar depression PLAN: -At this time patient DOES NOT meet criteria for inpatient psychiatric admission however can continue to follow-up with [facility] as she is currently being seen by her social media content specialist and piano case and bench assembler on a regular basis. -Would recommend the following medication changes/additions: Can continue with her home medications as prescribed. Added acamprosate back to her medication regimen 666 mg 3 times daily for alcohol cravings. Changed Valium to every 8 hours scheduled 10 mg for alcohol withdrawal, plan to taper off before discharge. -CIWA protocol with PRN Ativan for alcohol withdrawal. Continue to monitor vital signs. -Attempted to offer patient inpatient substance rehab however patient is declining this. She wants to continue working with [facility] as an outpatient and also attend AA meetings at [facility]. -Communicated plan to patient's nurse -Psychiatry will sign off at this time -Please contact with any questions. 11/29/23 13:41 11/29/23 13:44
[2023-11-29] MEDS: diazePAM 5 MG TAB PO SCH (15:34)
[2023-11-29] MEDS: ACAMPROSATE CALCIUM 333 MG TABLET.DR PO SCH (17:12)
[2023-11-29] MEDS: ALBUTEROL NEBULIZED 2.5 MG/3 ML INHALATION PRN (18:21)
[2023-11-30 08:38] VITALS: RESP 18
[2023-11-30 12:52] VITALS: BP 145/86; TEMP 97.7
--- NOTE | 2023-11-30 13:36 | CDI ---
Documentation Clarification Form Date: 11/30/2023 01:12:36 PM From: Brenda Salazar Phone: [phone] Admit Date: 11/27/2023 10:22:00 PM Patient Name: Rosa Saba Visit Number: [id number] Discharge Date: ATTENTION: The Clinical Documentation Specialists (CDI) and [facility] Coding Staff appreciate your assistance in clarifying documentation. Please respond to the clarification below the line at the bottom and electronically sign. The CDI & [facility] Coding staff will review the response and follow-up if needed. Please note: Queries are made part of the Legal Health Record. If you have any questions, please contact the author of this message via ITS. Dr. Avery Brantley Your patient has the documented symptom of Altered Mental Status 11/28, Medicine note. Additional clarification regarding the etiology/cause of this symptom is requested. History/Risk Factors: 63-year-old female presented to the ED severe distress, altered mental status and acting inappropriately. Medical History: known history of frequent ER visits, Alcoholism, Anxiety, Bipolar and Depression. 11/27, ED Note Clinical Indicators: Labs: 11/27 Serum Alcohol 357 Nursing note 11/27: Patient drank about 2 pints of vodka today. Per EMS neighbor stated patient was too drunk to even walk. Treatment: Range Ecologist, 11/28 Psychology consult for Alcoholism and suicidal ideation, one to one observer Please clarify the etiology of the symptom of Altered Mental Status [ ] Toxic Encephalopathy due to Alcohol Intoxication [ ] Other condition (please specify) [ ] Unable to determine (Template Last Revised: December 2020) MTDD
[2023-11-30 16:11] VITALS: PULSE 56
--- NOTE | 2023-12-01 00:48 | PN ---
PROGRESS NOTE Toxic encephalopathy secondary to alcohol intoxication. MMODL / IJN: [id number] /
--- NOTE | 2024-01-01 21:43 | HP ---
HISTORY AND PHYSICAL HISTORY OF PRESENT ILLNESS: A 63-year-old female came to the emergency room with severe distress and altered mental status, acting inappropriately. She has not been feeling well a few days, altered mental status, alcohol intoxication. HOME MEDICATIONS: Include, 1. Omeprazole. 2. Nitroglycerin sublingual. 3. Fexofenadine. 4. Triamcinolone. 5. Multivitamins. 6. Metoprolol 12.5 b.i.d. ALLERGIES: Clindamycin, Mucomyst, Benadryl. REVIEW OF SYSTEMS: 14-point review of systems otherwise negative. PAST MEDICAL HISTORY: Asthma, cancer, hypertension, hypothyroidism, history of drug overdose, alcohol issues. FAMILY HISTORY: Mother with cancer of the breast. Dad had esophageal cancer. PHYSICAL EXAMINATION: GENERAL: Altered mental status. Sleepy, lethargic, intoxicated. SKIN: Dry mucous membranes. Decreased skin turgor. CARDIOVASCULAR: S1, S2. LUNGS: Transmitted upper sounds. EXTREMITIES: No cyanosis, clubbing, or edema. NEUROLOGIC: Alert and oriented x3. VITAL SIGNS: Temp 98.2, pulse 60s to 70s, respiratory rate 18 to 20, blood pressure is 120s to 140s over 80s to 90s, O2 of 95%. ASSESSMENT: Altered mental status secondary to alcohol withdrawal, alcoholism, leukopenia, hyponatremia, hyperchloremia, liver enzyme elevations due to alcohol damage, acute anxiety, psychosis, alcohol poisoning, dehydration, hypernatremia, altered mental status, rehydrating. [facility] protocol. Neurologic and Psych consult. Prognosis guarded. MMODL / IJN: [id number] /
== END 2023-11-30 19:50 | disposition home or self-care (01) ==
LOC: EC 20:44 → INTOOBSV 22:22 → 5NMEDONC 22:22 → UNDODISIN 11-30 19:50
PROVIDERS: ADMIT Family Medicine; ATTEND Family Medicine
DX: F10.239 Alcohol dependence with withdrawal, unspecified (principal); G92.8 Other toxic encephalopathy; F10.229 Alcohol dependence with intoxication, unspecified; E86.0 Dehydration; E87.0 Hyperosmolality and hypernatremia; F31.81 Bipolar II disorder; F41.9 Anxiety disorder, unspecified; R45.851 Suicidal ideations; D72.819 Decreased white blood cell count, unspecified; E87.8 Other disorders of electrolyte and fluid balance, not elsewhere classified; E89.0 Postprocedural hypothyroidism; Y90.8 Blood alcohol level of 240 mg/100 ml or more; Z79.890 Hormone replacement therapy; Z79.899 Other long term (current) drug therapy; Z88.1 Allergy status to other antibiotic agents; Z88.8 Allergy status to other drugs, medicaments and biological substances
CPT/HCPCS: 96376 ×2; 96361 ×4; 96365; 96366; 96375; 82075; 99285; 36415; 94640 ×2; 80053 ×3; 83690 ×2; 83735 ×3; 84100 ×2; 85025 ×3; G0378 ×4; G0480; J2060 ×2; J2405; J3475; C9113; 80320; 96360

== ENCOUNTER 2023-12-07 23:45 | Emergency (ER) | payer OTHER ==
[2023-12-07 23:53] VITALS: TEMP 97.9
--- NOTE | 2023-12-08 01:15 | ED ---
Alcohol HPI - General Source: patient Mode of arrival: EMS Limitations: no limitations <Gucci Dumont - Last Filed: 12/08/23 01:14> <Mikayla Flynn - Last Filed: 12/08/23 05:33> - General Chief Complaint: Alcohol Stated Complaint: ETOH Time Seen by Provider: 12/08/23 01:14 - History of Present Illness Initial Comments: 63-year-old female presenting with chief complaint of alcohol withdrawal. Her last drink was at 1500. (Gucci Dumont) Rosa is a alcoholic female well-known to the ER. She presents today states that she is trying to stop drinking she is currently seeing [facility] every day as a support program. Her last drink was 3 PM today. She is worried about withdrawals. Patient states she has never had to be hospitalized for withdrawal she is never had seizures but she does get very shaky and very anxious. She is feeling quite shaky and anxious now as well as feeling some nausea. (Mikayla Flynn) - Related Data Home Medications Medication Instructions Recorded Confirmed Nitroglycerin Sl Tabs [Nitrostat] 0.4 mg SL Q5M PRN 05/18/23 11/27/23 Fexofenadine HCl [Debbi Allergy] 180 mg PO DAILY 08/14/23 11/27/23 Triamcinolone 0.1% Cream [Kenalog 1 applic TOPICAL BID PRN 08/15/23 11/27/23 0.1% Cream] Omeprazole Magnesium [PriLOSEC OTC] 20 mg PO DAILY 10/03/23 11/27/23 Fluticasone Nasal Dinosaur [Flonase 2 spr EA NOSTRIL DAILY 10/14/23 11/27/23 Nasal Dinosaur] Multivitamins, Thera [Multivitamin 1 tab PO DAILY 10/14/23 11/27/23 (formulary)] Metoprolol Tartrate [Lopressor] 12.5 mg PO BID 11/18/23 11/27/23 Previous Rx's Medication Instructions Recorded Albuterol Inhaler [Ventolin Hfa 2 puff INHALATION RT-Q6H PRN #1 01/20/23 Inhaler] each Acetaminophen Tab [Tylenol] 650 mg PO Q6HR PRN tab 07/19/23 Ondansetron Odt [Zofran ODT] 4 mg PO Q8HR PRN #10 tab 08/04/23 Acamprosate Calcium [Campral] 666 mg PO TID 30 Days #120 tab 10/06/23 Escitalopram [Lexapro] 20 mg PO DAILY 30 Days #30 tab 10/06/23 Folic Acid 1 mg PO DAILY 30 Days #30 tab 10/06/23 Levothyroxine Sodium [Synthroid] 150 mcg PO DAILY 30 Days #30 tab 10/06/23 Thiamine [Vitamin B-1] 100 mg PO DAILY 30 Days #30 tab 10/06/23 lamoTRIgine [LaMICtal] 100 mg PO DAILY 30 Days #30 tab 10/06/23 traZODone HCL 150 mg PO HS 30 Days #30 tablet 10/06/23 Calcium Carbonate [Tums] 500 mg PO AC-TID tab 11/04/23 diazePAM [Valium] 5 mg PO Q8H PRN 3 Days #9 tab 11/22/23 chlordiazePOXIDE HCl [Librium] 25 mg PO TID 6 Days #18 capsule 12/08/23 Allergies Allergy/AdvReac Type Severity Reaction Status Date / Time clindamycin Allergy Unknown Rash/Hives Verified 12/07/23 23:50 acetylcysteine AdvReac Anaphylaxis Verified 12/07/23 23:50 [From Mucomyst] citalopram [From Celexa] AdvReac Hallucinati Verified 12/07/23 23:50 ons diphenhydramine HCl AdvReac Rapid Verified 12/07/23 23:50 [From Benadryl] Heart Rate Review of Systems ROS Other: All systems not noted in ROS Statement are negative. <Gucci Dumont - Last Filed: 12/08/23 01:14> ROS Other: All systems not noted in ROS Statement are negative. <Mikayla Flynn - Last Filed: 12/08/23 05:33> ROS Statement: Those systems with pertinent positive or pertinent negative responses have been documented in the HPI. Past Medical History Past Medical History: Asthma, Cancer, Hypertension, Thyroid Disorder Additional Past Medical History / Comment(s): History of goiter status post thyroidectomy, questionable history of thyroid cancer although this is not clear, bipolar disorder, depression, history of suicidal ideations, history of drug overdose, alcoholism, seasonal rhinitis, psoriasis, breast cysts, history of broken toes in the right foot, History of Any Multi-Drug Resistant Organisms: None Reported Past Surgical History: No Surgical Hx Reported Additional Past Surgical History / Comment(s): Thyroidectomy 2000, SKIN NEVI REMOVED Past Anesthesia/Blood Transfusion Reactions: Previous Problems w/ Anesthesia, Postoperative Nausea & Vomiting (PONV) Additional Past Anesthesia/Blood Transfusion Reaction / Comment(s): Lives in a house with two roommates. ETOH. Pt no longer has a drivers license- she has had 2 DUI's. 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 She is seen at [facility]. Past Psychological History: Anxiety, Bipolar, Depression Smoking Status: Never smoker Past Alcohol Use History: Abuse, Daily, Heavy Past Drug Use History: None Reported - Past Family History Father Family Medical History: Cancer Additional Family Medical History / Comment(s): Father at age 64 of esophageal cancer. Father was an alcoholic and had cirrhosis of the liver. Mother Family Medical History: Cancer Additional Family Medical History / Comment(s): Mother of breast cancer at age 42yrs. <Gucci Dumont - Last Filed: 12/08/23 01:14> General Exam Limitations: no limitations <Gucci Dumont - Last Filed: 12/08/23 01:14> <Mikayla Flynn - Last Filed: 12/08/23 05:33> - General Exam Comments Initial Comments: Visual Physical Exam Vital signs reviewed General: Well-appearing, nontoxic, no acute distress. Head: Normocephalic, atraumatic Eyes: PERRLA, EOMI ENT: Airway patent Chest: Nonlabored breathing Skin: No visual rash, normal skin tone Neuro: Alert and oriented 3 Musculoskeletal: No gross abnormalities (Gucci Dumont) Physical Exam GENERAL: Patient is well-developed and well-nourished. Patient is nontoxic and well-hydrated and is in no distress. HENT: Normocephalic, Atraumatic. EYES: PERRL, EOMI PULMONARY: Unlabored respirations. CARDIOVASCULAR: RRR Warm and well perfused extremities ABDOMEN: Non-distended SKIN: No rashes or bruising : Deferred NEUROLOGIC: Alert and oriented Normal speech Normal gait MUSCULOSKELETAL: Moving all extremities with no apparent injury PSYCHIATRIC: No SI/HI (Mikayla Flynn) Course Vital Signs 12/07/23 12/08/23 23:47 03:00 Temperature 97.9 F Pulse Rate 86 85 Respiratory 20 16 Rate Blood Pressure 143/75 120/85 O2 Sat by Pulse 93 L 95 Oximetry Medical Decision Making <Gucci Dumont - Last Filed: 12/08/23 01:14> - Lab Data Result diagrams: 12/08/23 02:12 12/08/23 02:12 <Mikayla Flynn - Last Filed: 12/08/23 05:33> - Medical Decision Making I performed the quick note portion of this visit electronically signed Gucci Dumont PA-C (Gucci Dumont) Was pt. sent in by a medical professional or institution (EDY Riley, HORTICULTURE INSTRUCTOR, urgent care, hospital, or fpc...) When possible be specific @ -No Did you speak to anyone other than the patient for history (EMS, parent, family, police, friend...)? What history was obtained from this source @ -EMS Did you review nursing and triage notes (agree or disagree)? Why? @ -I reviewed and agree with nursing and triage notes Were old charts reviewed (outside hosp., previous admission, EMS record, old EKG, old radiological studies, urgent care reports/EKG's, fpc records)? Report findings @ -Previous visits were reviewed Differential Diagnosis (chest pain, altered mental status, abdominal pain women, abdominal pain men, vaginal bleeding, weakness, fever, dyspnea, syncope, headache, dizziness, GI bleed, back pain, seizure, CVA, palpatations, mental health)? @ -Differential includes alcohol withdrawal, alcohol intoxication, anxiety, hyponatremia EKG interpreted by me (3pts min.). @ -As above X-rays interpreted by me (1pt min.). @ -None done CT interpreted by me (1pt min.). @ -None done U/S interpreted by me (1pt. min.). @ -None done What testing was considered but not performed or refused? (CT, X-rays, U/S, labs)? Why? @ -None What meds were considered but not given or refused? Why? @ -None Did you discuss the management of the patient with other professionals (professionals i.e. EDY Riley, HORTICULTURE INSTRUCTOR, lab, RT, psych nurse, aids social worker, ambulatory technologist, teacher, medical scientific officer, shoe caser)? Give summary @ -No Was smoking cessation discussed for >3mins.? @ -No Was critical care preformed (if so, how long)? @ -No Were there social determinants of health that impacted care today? How? (Home lessness, low income, unemployed, alcoholism, drug addiction, transportation, low edu. Level, literacy, decrease access to med. care, intermediate, rehab)? @ -Alcoholism Was there de-escalation of care discussed even if they declined (Discuss DNR or withdrawal of care, Hospice)? DNR status @ -No What co-morbidities impacted this encounter? (DM, HTN, Smoking, COPD, CAD, Cancer, CVA, ARF, Chemo, Hep., AIDS, mental health diagnosis, sleep apnea, morbid obesity)? @ -None Was patient admitted / discharged? Hospital course, mention meds given and route, prescriptions, significant lab abnormalities, going to OR and other pertinent info. @ -Discharged Patient was seen and evaluated history is obtained from patient. Labs are obtained and are at baseline for the patient she has mild transaminitis cons istent with alcohol abuse. Patient received Zofran and Ativan in the ER. Patient will be discharged home with Librium and advised to follow-up outpatient. Undiagnosed new problem with uncertain prognosis? @ -No Drug Therapy requiring intensive monitoring for toxicity (Heparin, Nitro, Insulin, Cardizem)? @ -No Were any procedures done? @ -No Diagnosis/symptom? @ -Alcohol intoxication Acute, or Chronic, or Acute on Chronic? @ -Acute, recurrent Uncomplicated (without systemic symptoms) or Complicated (systemic symptoms)? @ -Default Side effects of treatment? @ -No Exacerbation, Progression, or Severe Exacerbation? @ -No Poses a threat to life or bodily function? How? (Chest pain, [place], [place], pneumonia, PE, COPD, DKA, ARF, appy, cholecystitis, CVA, Diverticulitis, Homicidal, Suicidal, threat to staff... and all critical care pts) @ -Unlikely (Mikayla Flynn) - Lab Data Lab Results 12/08/23 12/08/23 Range/Units 02:12 02:12 WBC 3.9 (3.8-10.6) k/uL RBC 4.18 (3.80-5.40) m/uL Hgb 13.8 (11.4-16.0) gm/dL Hct 40.9 (34.0-46.0) % MCV 97.9 (80.0-100.0) fL MCH 33.1 (25.0-35.0) pg MCHC 33.8 (31.0-37.0) g/dL RDW 15.1 (11.5-15.5) % Plt Count 174 (150-450) k/uL MPV 8.8 Neutrophils % 52 % Lymphocytes % 34 % Monocytes % 7 % Eosinophils % 2 % Basophils % 2 % Neutrophils # 2.0 (1.3-7.7) k/uL Lymphocytes # 1.3 (1.0-4.8) k/uL Monocytes # 0.3 (0-1.0) k/uL Eosinophils # 0.1 (0-0.7) k/uL Basophils # 0.1 (0-0.2) k/uL Sodium 139 (137-145) mmol/L Potassium 4.6 (3.5-5.1) mmol/L Chloride 103 (98-107) mmol/L Carbon Dioxide 17 L (22-30) mmol/L Anion Gap 19 mmol/L BUN 22 H (7-17) mg/dL Creatinine 0.79 (0.52-1.04) mg/dL Est GFR (CKD-EPI)AfAm >90 (>60 ml/min/1.73 sqM) Est GFR (CKD-EPI)NonAf 81 (>60 ml/min/1.73 sqM) Glucose 75 (74-99) mg/dL Calcium 9.5 (8.4-10.2) mg/dL Total Bilirubin 0.8 (0.2-1.3) mg/dL AST 114 H (14-36) U/L ALT 73 H (4-34) U/L Alkaline Phosphatase 52 (38-126) U/L Total Protein 8.5 H (6.3-8.2) g/dL Albumin 5.2 H (3.5-5.0) g/dL Serum Alcohol 171 mg/dL Disposition <Gucci Dumont - Last Filed: 12/08/23 01:14> Is patient prescribed a controlled substance at d/c from ED?: Yes If prescribed controlled substance>3 days was MAPS reviewed?: Prescribed <3 Days <Mikayla Flynn - Last Filed: 12/08/23 05:33> Clinical Impression: Alcoholism /alcohol abuse Disposition: HOME SELF-CARE Condition: Stable Instructions (If sedation given, give patient instructions): Alcohol Intoxication (ED) Prescriptions: chlordiazePOXIDE HCl [Librium] 25 mg PO TID 6 Days #18 capsule Referrals: [facility] [Primary Care Provider] - 1-2 days
[2023-12-08 02:53] LABS: Basophils # (A) 0.1 k/uL (0-0.2); Basophils % (A) 2 %; Eosinophils # (A) 0.1 k/uL (0-0.7); Eosinophils % (A) 2 %; HCT 40.9 % (34.0-46.0); HGB 13.8 gm/dL (11.4-16.0); Lymphocytes # (A) 1.3 k/uL (1.0-4.8); Lymphocytes % (A) 34 %; MCH 33.1 pg (25.0-35.0); MCHC 33.8 g/dL (31.0-37.0); MCV 97.9 fL (80.0-100.0); Mean Platelet Volume 8.8; Monocytes # (A) 0.3 k/uL (0-1.0); Monocytes % (A) 7 %; Neutrophils % (A) 52 %; Platelet Count 174 k/uL (150-450); RBC 4.18 m/uL (3.80-5.40); RDW 15.1 % (11.5-15.5); WBC 3.9 k/uL (3.8-10.6)
[2023-12-08] MEDS ORDERED: ONDANSETRON 4 MG/2 ML VIAL IVP STA (02:56)
[2023-12-08 03:38] LABS: ALT 73 U/L (4-34); AST 114 U/L (14-36); African American GFR (CKD) >90 (>60 ml/min/1.73 sqM); Albumin 5.2 g/dL (3.5-5.0); Alkaline Phosphatase 52 U/L (38-126); Anion Gap 19 mmol/L; Blood Urea Nitrogen 22 mg/dL (7-17); Calcium 9.5 mg/dL (8.4-10.2); Carbon Dioxide 17 mmol/L (22-30); Chloride 103 mmol/L (98-107); Glucose 75 mg/dL (74-99); Non-African American GFR(CKD) 81 (>60 ml/min/1.73 sqM); Potassium 4.6 mmol/L (3.5-5.1); Sodium 139 mmol/L (137-145); Total Bilirubin 0.8 mg/dL (0.2-1.3); Total Protein 8.5 g/dL (6.3-8.2)
[2023-12-08 03:55] LABS: Alcohol 171 mg/dL
[2023-12-08] MEDS ORDERED: LORazepam 2 MG/ML INJ IV STA (04:39)
[2023-12-08 05:01] VITALS: BP 120/85; PULSE 85; RESP 16
== END 2023-12-08 05:41 | disposition home or self-care (01) ==
LOC: EC 23:45
DX: F10.10 Alcohol abuse, uncomplicated (principal); J45.909 Unspecified asthma, uncomplicated; I10 Essential (primary) hypertension; Z86.59 Personal history of other mental and behavioral disorders; Z79.51 Long term (current) use of inhaled steroids; Z88.6 Allergy status to analgesic agent; Z88.8 Allergy status to other drugs, medicaments and biological substances; Y90.6 Blood alcohol level of 120-199 mg/100 ml
CPT/HCPCS: 36415; 80053; 85025; 99285; 96374; 96375; G0480; J2060; J2405; 80320

== ENCOUNTER 2023-12-26 17:38 | Emergency (ER) | payer OTHER ==
--- NOTE | 2023-12-26 18:05 | ED ---
General Adult HPI - General Chief complaint: Alcohol Stated complaint: Detox Time Seen by Provider: 12/26/23 17:49 Source: patient, RN notes reviewed Mode of arrival: ambulatory Limitations: no limitations - History of Present Illness Initial comments: Patient is a pleasant 63-year-old female present to the emergency department with nausea vomiting. Patient is a alcoholic. Patient left rehab a week ago and started drinking again. Patient last drank around 6 hours ago. Patient feels nauseated. Patient has had multiple episodes of dry heaves - Related Data Home Medications Medication Instructions Recorded Confirmed Nitroglycerin Sl Tabs [Nitrostat] 0.4 mg SL Q5M PRN 05/18/23 11/27/23 Fexofenadine HCl [Debbi Allergy] 180 mg PO DAILY 08/14/23 11/27/23 Triamcinolone 0.1% Cream [Kenalog 1 applic TOPICAL BID PRN 08/15/23 11/27/23 0.1% Cream] Omeprazole Magnesium [PriLOSEC OTC] 20 mg PO DAILY 10/03/23 11/27/23 Fluticasone Nasal [place] [Flonase 2 spr EA NOSTRIL DAILY 10/14/23 11/27/23 Nasal [place]] Multivitamins, Thera [Multivitamin 1 tab PO DAILY 10/14/23 11/27/23 (formulary)] Metoprolol Tartrate [Lopressor] 12.5 mg PO BID 11/18/23 11/27/23 Previous Rx's Medication Instructions Recorded Albuterol Inhaler [Ventolin Hfa 2 puff INHALATION RT-Q6H PRN #1 01/20/23 Inhaler] each Acetaminophen Tab [Tylenol] 650 mg PO Q6HR PRN tab 07/19/23 Ondansetron Odt [Zofran ODT] 4 mg PO Q8HR PRN #10 tab 08/04/23 Acamprosate Calcium [Campral] 666 mg PO TID 30 Days #120 tab 10/06/23 Escitalopram [Lexapro] 20 mg PO DAILY 30 Days #30 tab 10/06/23 Folic Acid 1 mg PO DAILY 30 Days #30 tab 10/06/23 Levothyroxine Sodium [Synthroid] 150 mcg PO DAILY 30 Days #30 tab 10/06/23 Thiamine [Vitamin B-1] 100 mg PO DAILY 30 Days #30 tab 10/06/23 lamoTRIgine [LaMICtal] 100 mg PO DAILY 30 Days #30 tab 10/06/23 traZODone HCL 150 mg PO HS 30 Days #30 tablet 10/06/23 Calcium Carbonate [Tums] 500 mg PO AC-TID tab 11/04/23 diazePAM [Valium] 5 mg PO Q8H PRN 3 Days #9 tab 11/22/23 chlordiazePOXIDE HCl [Librium] 25 mg PO TID 6 Days #18 capsule 12/08/23 Allergies Allergy/AdvReac Type Severity Reaction Status Date / Time clindamycin Allergy Unknown Rash/Hives Verified 12/26/23 17:54 acetylcysteine AdvReac Anaphylaxis Verified 12/26/23 17:54 [From Mucomyst] citalopram [From Celexa] AdvReac Hallucinati Verified 12/26/23 17:54 ons diphenhydramine HCl AdvReac Rapid Verified 12/26/23 17:54 [From Benadryl] Heart Rate Review of Systems ROS Statement: Those systems with pertinent positive or pertinent negative responses have been documented in the HPI. ROS Other: All systems not noted in ROS Statement are negative. Constitutional: Denies: fever Eyes: Denies: eye pain ENT: Denies: ear pain Gastrointestinal: Reports: nausea, vomiting. Denies: abdominal pain Past Medical History Past Medical History: Asthma, Cancer, Hypertension, Thyroid Disorder Additional Past Medical History / Comment(s): History of goiter status post thyroidectomy, questionable history of thyroid cancer although this is not clear, bipolar disorder, depression, history of suicidal ideations, history of drug overdose, alcoholism, seasonal rhinitis, psoriasis, breast cysts, history of broken toes in the right foot, History of Any Multi-Drug Resistant Organisms: None Reported Past Surgical History: No Surgical Hx Reported Additional Past Surgical History / Comment(s): Thyroidectomy 1999, SKIN NEVI REMOVED Past Anesthesia/Blood Transfusion Reactions: Previous Problems w/ Anesthesia, Postoperative Nausea & Vomiting (PONV) Additional Past Anesthesia/Blood Transfusion Reaction / Comment(s): Lives in a house with two roommates. ETOH. Pt no longer has a drivers license- she has had 2 DUI's. 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 She is seen at [facility]. Past Psychological History: Anxiety, Bipolar, Depression Smoking Status: Never smoker Past Alcohol Use History: Abuse, Daily, Heavy Past Drug Use History: None Reported - Past Family History Father Family Medical History: Cancer Additional Family Medical History / Comment(s): Father at age 64 of esophageal cancer. Father was an alcoholic and had cirrhosis of the liver. Mother Family Medical History: Cancer Additional Family Medical History / Comment(s): Mother of breast cancer at age 42yrs. General Exam Limitations: no limitations General appearance: alert, in no apparent distress Head exam: Present: normocephalic Eye exam: Present: normal appearance Neck exam: Present: normal inspection Respiratory exam: Present: normal lung sounds bilaterally Cardiovascular Exam: Present: regular rate, normal rhythm GI/Abdominal exam: Present: soft. Absent: tenderness Extremities exam: Present: normal inspection Neurological exam: Present: alert Psychiatric exam: Present: normal affect, normal mood Skin exam: Present: normal color Course Vital Signs 12/26/23 17:51 Temperature 98.4 F Pulse Rate 77 Respiratory 20 Rate Blood Pressure 128/79 O2 Sat by Pulse 96 Oximetry Medical Decision Making - Medical Decision Making Was pt. sent in by a medical professional or institution (, PA, DIRECT SUPPORT STAFF, urgent care, hospital, or group home...) When possible be specific @ -No Did you speak to anyone other than the patient for history (EMS, parent, family, police, friend...)? What history was obtained from this source @ -No Did you review nursing and triage notes (agree or disagree)? Why? @ -I reviewed and agree with nursing and triage notes Were old charts reviewed (outside hosp., previous admission, EMS record, old EKG, old radiological studies, urgent care reports/EKG's, group home records)? Report findings @ -Previous labs reviewed Differential Diagnosis (chest pain, altered mental status, abdominal pain women, abdominal pain men, vaginal bleeding, weakness, fever, dyspnea, syncope, headache, dizziness, GI bleed, back pain, seizure, CVA, palpatations, mental he alth, musculoskeletal)? @ -Differential Abdominal Pain Women: Appendicitis, Cholecystitis, diverticulosis, ischemic bowel, pancreatitis, hepatitis, UTI, gastroenteritis, AAA, incarcerated hernia, bowel obstruction, constipation, inflammatory bowel, hepatitis, peptic ulcer disease, splenic infarction, perforated viscus, vulvitis, ovarian torsion, PID, kidney stone, placenta abruption, this is not meant to be an all-inclusive list EKG interpreted by me (3pts min.). @ -As above X-rays interpreted by me (1pt min.). @ -None done CT interpreted by me (1pt min.). @ -None done U/S interpreted by me (1pt. min.). @ -None done What testing was considered but not performed or refused? (CT, X-rays, U/S, labs)? Why? @ -None What meds were considered but not given or refused? Why? @ -None Did you discuss the management of the patient with other professionals (professionals i.e. Dr., PA, DIRECT SUPPORT STAFF, lab, RT, psych nurse, socially responsible investment adviser, rn placement, teacher, chairman and chief executive officer, casework supervisor)? Give summary @ -No Was smoking cessation discussed for >3mins.? @ -No Was critical care preformed (if so, how long)? @ -No Were there social determinants of health that impacted care today? How? (Homelessness, low income, unemployed, alcoholism, drug addiction, transportation, low edu. Level, literacy, decrease access to med. care, mcc, rehab)? @ -No Was there de-escalation of care discussed even if they declined (Discuss DNR or withdrawal of care, Hospice)? DNR status @ -No What co-morbidities impacted this encounter? (DM, HTN, Smoking, COPD, CAD, Cancer, CVA, ARF, Chemo, Hep., AIDS, mental health diagnosis, sleep apnea, morbid obesity)? @ -None Was patient admitted / discharged? Hospital course, mention meds given and route, prescriptions, significant lab abnormalities, going to OR and other perti nent info. @ -Patient reevaluated and feeling much better following fluids and antiemetic. Patient updated on results and need for follow-up. Undiagnosed new problem with uncertain prognosis? @ -No Drug Therapy requiring intensive monitoring for toxicity (Heparin, Nitro, Insulin, Cardizem)? @ -No Were any procedures done? @ -No Diagnosis/symptom? @ -Vomiting Acute, or Chronic, or Acute on Chronic? @ -Acute Uncomplicated (without systemic symptoms) or Complicated (systemic symptoms)? @ -Default Side effects of treatment? @ -No Exacerbation, Progression, or Severe Exacerbation? @ -No Poses a threat to life or bodily function? How? (Chest pain, [place], [place], pneumonia, PE, COPD, DKA, ARF, appy, cholecystitis, CVA, Diverticulitis, Homicidal, Suicidal, threat to staff... and all critical care pts) @ -No - Lab Data Result diagrams: 12/26/23 18:10 12/26/23 18:10 Lab Results 12/26/23 12/26/23 Range/Units 18:10 18:10 WBC 4.2 (3.8-10.6) k/uL RBC 4.52 (3.80-5.40) m/uL Hgb 14.8 (11.4-16.0) gm/dL Hct 44.9 (34.0-46.0) % MCV 99.3 (80.0-100.0) fL MCH 32.9 (25.0-35.0) pg MCHC 33.1 (31.0-37.0) g/dL RDW 15.3 (11.5-15.5) % Plt Count 216 (150-450) k/uL MPV 8.3 Neutrophils % 71 % Lymphocytes % 22 % Monocytes % 4 % Eosinophils % 0 % Basophils % 2 % Neutrophils # 3.0 (1.3-7.7) k/uL Lymphocytes # 0.9 L (1.0-4.8) k/uL Monocytes # 0.2 (0-1.0) k/uL Eosinophils # 0.0 (0-0.7) k/uL Basophils # 0.1 (0-0.2) k/uL Macrocytosis Slight Sodium 139 (137-145) mmol/L Potassium 4.2 (3.5-5.1) mmol/L Chloride 99 (98-107) mmol/L Carbon Dioxide 14 L (22-30) mmol/L Anion Gap 26 mmol/L BUN 18 H (7-17) mg/dL Creatinine 0.79 (0.52-1.04) mg/dL Est GFR (CKD-EPI)AfAm >90 (>60 ml/min/1.73 sqM) Est GFR (CKD-EPI)NonAf 81 (>60 ml/min/1.73 sqM) Glucose 54 L (74-99) mg/dL Calcium 8.7 (8.4-10.2) mg/dL Magnesium 2.0 (1.6-2.3) mg/dL Total Bilirubin 1.1 (0.2-1.3) mg/dL AST 309 H (14-36) U/L ALT 174 H (4-34) U/L Alkaline Phosphatase 62 (38-126) U/L Total Protein 8.5 H (6.3-8.2) g/dL Albumin 5.3 H (3.5-5.0) g/dL Lipase 91 (23-300) U/L Serum Alcohol 235 H* mg/dL Disposition Clinical Impression: Vomiting Disposition: HOME SELF-CARE Condition: Stable Instructions (If sedation given, give patient instructions): Acute Nausea and Vomiting (ED), Alcohol Withdrawal (ED) Additional Instructions: Discontinue alcohol use. Please do follow-up with primary care physician in the next 1 to 2 days for recheck. Return for pain, increased vomiting, worsening or changing symptoms or other concerns. Is patient prescribed a controlled substance at d/c from ED?: No Referrals: [facility] [Primary Care Provider] - 1-2 days Time of Disposition: 19:58
[2023-12-26 18:20] LABS: Basophils # (A) 0.1 k/uL (0-0.2); Basophils % (A) 2 %; Eosinophils % (A) 0 %; HCT 44.9 % (34.0-46.0); HGB 14.8 gm/dL (11.4-16.0); Lymphocytes # (A) 0.9 k/uL (1.0-4.8); Lymphocytes % (A) 22 %; MCH 32.9 pg (25.0-35.0); MCHC 33.1 g/dL (31.0-37.0); MCV 99.3 fL (80.0-100.0); Macrocytosis Slight; Mean Platelet Volume 8.3; Monocytes # (A) 0.2 k/uL (0-1.0); Monocytes % (A) 4 %; Neutrophils % (A) 71 %; Platelet Count 216 k/uL (150-450); RBC 4.52 m/uL (3.80-5.40); RDW 15.3 % (11.5-15.5); WBC 4.2 k/uL (3.8-10.6)
[2023-12-26] MEDS: SODIUM CHLORIDE 0.9% 1,000 ML IV STA (18:26)
[2023-12-26] MEDS: ONDANSETRON 4 MG/2 ML VIAL IVP STA (18:27)
[2023-12-26] MEDS: FAMOTIDINE 20 MG/2 ML VIAL IV STA (18:29)
[2023-12-26 18:33] LABS: ALT 174 U/L (4-34); AST 309 U/L (14-36); African American GFR (CKD) >90 (>60 ml/min/1.73 sqM); Albumin 5.3 g/dL (3.5-5.0); Alkaline Phosphatase 62 U/L (38-126); Anion Gap 26 mmol/L; Blood Urea Nitrogen 18 mg/dL (7-17); Calcium 8.7 mg/dL (8.4-10.2); Carbon Dioxide 14 mmol/L (22-30); Chloride 99 mmol/L (98-107); Glucose 54 mg/dL (74-99); Lipase 91 U/L (23-300); Non-African American GFR(CKD) 81 (>60 ml/min/1.73 sqM); Potassium 4.2 mmol/L (3.5-5.1); Sodium 139 mmol/L (137-145); Total Bilirubin 1.1 mg/dL (0.2-1.3); Total Protein 8.5 g/dL (6.3-8.2)
[2023-12-26] MEDS: THIAMINE 100 MG/ML 2 ML VIAL IM STA (18:33)
[2023-12-26 18:43] LABS: Alcohol 235 mg/dL
[2023-12-26 20:54] VITALS: BP 122/78; PULSE 74; RESP 18; TEMP 98.2
== END 2023-12-26 20:52 | disposition home or self-care (01) ==
LOC: EC 17:38
DX: R11.2 Nausea with vomiting, unspecified (principal); I10 Essential (primary) hypertension; J45.909 Unspecified asthma, uncomplicated; Z79.899 Other long term (current) drug therapy; Z88.1 Allergy status to other antibiotic agents; Z88.8 Allergy status to other drugs, medicaments and biological substances
CPT/HCPCS: 36415; 80053; 83690; 83735; 85025; 99285; 96374; 96375; 96361 ×2; 96372; G0480; J3411; J2405; J3490; 80320

== ENCOUNTER 2023-12-27 00:53 | Observation (INO) | payer OTHER ==
--- NOTE | 2023-12-27 00:58 | ED ---
Recheck HPI - General Stated Complaint: Alcohol withdrawal Time Seen by Provider: 12/27/23 00:56 Source: RN notes reviewed, old records reviewed Mode of arrival: EMS Limitations: altered mental status - History of Present Illness Initial Comments: This is a 63-year-old female to ER for evaluation of severe altered mental status. Persistent altered mental status with known alcohol withdrawal with significant nausea and vomiting. Patient was in the ER earlier today with simil ar symptoms and was sent home on nausea medication she states she cannot take any medications currently. Severe alcohol withdrawal MD Complaint: other (Significant alcohol withdrawal) -: days(s) Returns Today for: Called Because of Abnormal Lab/Test Symptoms Since Prior Visit: worsening pain Context: planned re-check, called for abnormal lab result Associated Symptoms: none - Related Data Home Medications Medication Instructions Recorded Confirmed Fexofenadine HCl [Debbi Allergy] 180 mg PO DAILY PRN 08/14/23 12/27/23 Metoprolol Tartrate [Lopressor] 12.5 mg PO BID 11/18/23 12/27/23 Previous Rx's Medication Instructions Recorded Acamprosate Calcium [Campral] 666 mg PO TID 30 Days #120 tab 10/06/23 Escitalopram [Lexapro] 20 mg PO DAILY 30 Days #30 tab 10/06/23 Levothyroxine Sodium [Synthroid] 150 mcg PO DAILY 30 Days #30 tab 10/06/23 lamoTRIgine [LaMICtal] 100 mg PO DAILY 30 Days #30 tab 10/06/23 traZODone HCL 150 mg PO HS 30 Days #30 tablet 10/06/23 Pantoprazole [Protonix] 40 mg PO AC-BID #60 tab 12/29/23 Thiamine [Vitamin B-1] 100 mg PO BID #60 tab 12/29/23 LORazepam [Ativan] 1 mg PO TID PRN 3 Days #9 tab 12/31/23 Allergies Allergy/AdvReac Type Severity Reaction Status Date / Time clindamycin Allergy Unknown Rash/Hives Verified 12/27/23 07:45 acetylcysteine AdvReac Anaphylaxis Verified 12/27/23 07:45 [From Mucomyst] citalopram [From Celexa] AdvReac Hallucinati Verified 12/27/23 07:45 ons diphenhydramine HCl AdvReac Rapid Verified 12/27/23 07:45 [From Benadryl] Heart Rate Review of Systems ROS Statement: Those systems with pertinent positive or pertinent negative responses have been documented in the HPI. ROS Other: All systems not noted in ROS Statement are negative. Past Medical History Past Medical History: Asthma, Cancer, Hypertension, Thyroid Disorder Additional Past Medical History / Comment(s): History of goiter status post thy roidectomy, questionable history of thyroid cancer although this is not clear, bipolar disorder, depression, history of suicidal ideations, history of drug overdose, alcoholism, seasonal rhinitis, psoriasis, breast cysts, history of broken toes in the right foot, History of Any Multi-Drug Resistant Organisms: None Reported Past Surgical History: No Surgical Hx Reported Additional Past Surgical History / Comment(s): Thyroidectomy 1999, SKIN NEVI REMOVED Past Anesthesia/Blood Transfusion Reactions: Previous Problems w/ Anesthesia, Postoperative Nausea & Vomiting (PONV) Additional Past Anesthesia/Blood Transfusion Reaction / Comment(s): Lives in a house with two roommates. ETOH. Pt no longer has a drivers license- she has had 2 DUI's. 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 She is seen at [facility]. Past Psychological History: Anxiety, Bipolar, Depression Smoking Status: Never smoker Past Alcohol Use History: Abuse, Daily, Heavy Past Drug Use History: None Reported - Past Family History Father Family Medical History: Cancer Additional Family Medical History / Comment(s): Father at age 64 of esophageal cancer. Father was an alcoholic and had cirrhosis of the liver. Mother Family Medical History: Cancer Additional Family Medical History / Comment(s): Mother of breast cancer at age 42yrs. General Exam General appearance: alert, in no apparent distress, anxious Head exam: Present: atraumatic, normocephalic, normal inspection Eye exam: Present: normal appearance, PERRL, EOMI. Absent: scleral icterus, conjunctival injection, periorbital swelling ENT exam: Present: normal exam, mucous membranes moist Neck exam: Present: normal inspection. Absent: tenderness, meningismus, lymphadenopathy Respiratory exam: Present: normal lung sounds bilaterally. Absent: respiratory distress, wheezes, rales, rhonchi, stridor Cardiovascular Exam: Present: regular rate, normal rhythm, normal heart sounds. Absent: systolic murmur, diastolic murmur, rubs, gallop, clicks GI/Abdominal exam: Present: soft, normal bowel sounds. Absent: distended, tenderness, guarding, rebound, rigid Extremities exam: Present: normal inspection, full ROM, normal capillary refill. Absent: tenderness, pedal edema, joint swelling, calf tenderness Back exam: Present: normal inspection Neurological exam: Present: alert, oriented X3, CN II-XII intact Psychiatric exam: Present: normal affect, normal mood Skin exam: Present: warm, dry, intact, normal color. Absent: rash Course Vital Signs 12/27/23 12/27/23 12/27/23 00:55 02:00 03:00 Temperature 98.9 F Pulse Rate 85 80 71 Pulse Rate [ Pulse Oximetery ] Respiratory 20 24 18 Rate Blood Pressure 135/92 108/77 119/80 Blood Pressure [Right Arm] O2 Sat by Pulse 98 98 96 Oximetry 12/27/23 12/27/23 12/27/23 04:00 07:01 07:25 Temperature 98.2 F Pulse Rate 62 60 81 Pulse Rate [ Pulse Oximetery ] Respiratory 18 16 17 Rate Blood Pressure 108/69 113/76 Blood Pressure [Right Arm] O2 Sat by Pulse 97 95 95 Oximetry 12/27/23 12/27/23 12/27/23 08:55 09:01 10:01 Temperature Pulse Rate 61 63 78 Pulse Rate [ Pulse Oximetery ] Respiratory 17 17 17 Rate Blood Pressure 115/74 109/69 127/77 Blood Pressure [Right Arm] O2 Sat by Pulse 96 96 96 Oximetry 12/27/23 12/27/23 12/27/23 11:07 15:49 16:03 Temperature 98.0 F 98.1 F Pulse Rate 60 80 Pulse Rate [ 68 Pulse Oximetery ] Respiratory 16 18 22 Rate Blood Pressure 108/75 131/79 Blood Pressure 135/79 [Right Arm] O2 Sat by Pulse 95 96 94 L Oximetry 12/27/23 12/27/23 12/28/23 19:20 22:56 02:00 Temperature 98.3 F Pulse Rate 71 57 L Pulse Rate [ 62 Pulse Oximetery ] Respiratory 17 17 12 Rate Blood Pressure 123/90 102/89 Blood Pressure 145/81 [Right Arm] O2 Sat by Pulse 95 97 91 L Oximetry 12/28/23 12/28/23 12/28/23 07:45 10:08 10:17 Temperature 98.2 F Pulse Rate 65 62 Pulse Rate [ 62 Pulse Oximetery ] Respiratory 18 Rate Blood Pressure Blood Pressure 155/94 [Right Arm] O2 Sat by Pulse 99 Oximetry 12/28/23 12/28/23 12/28/23 15:38 19:34 20:24 Temperature 97.9 F Pulse Rate 60 80 Pulse Rate [ 54 L Pulse Oximetery ] Respiratory 18 18 16 Rate Blood Pressure 140/98 Blood Pressure 145/94 [Right Arm] O2 Sat by Pulse 98 97 96 Oximetry 12/28/23 12/28/23 12/29/23 21:49 22:43 00:18 Temperature Pulse Rate 66 95 61 Pulse Rate [ Pulse Oximetery ] Respiratory 16 13 16 Rate Blood Pressure 162/110 138/116 145/105 Blood Pressure [Right Arm] O2 Sat by Pulse 97 95 95 Oximetry 12/29/23 12/29/23 12/29/23 01:07 01:51 03:43 Temperature Pulse Rate 57 L 57 L Pulse Rate [ Pulse Oximetery ] Respiratory 16 16 16 Rate Blood Pressure 146/99 151/105 150/106 Blood Pressure [Right Arm] O2 Sat by Pulse 96 94 L 95 Oximetry 12/29/23 12/29/23 04:31 07:04 Temperature Pulse Rate 61 69 Pulse Rate [ Pulse Oximetery ] Respiratory 16 14 Rate Blood Pressure 145/100 145/95 Blood Pressure [Right Arm] O2 Sat by Pulse 97 95 Oximetry - Reevaluation(s) Reevaluation #1: 12/27/23 02:47 Medical records reviewed Reevaluation #2: 12/27/23 02:47 Patient symptoms not improved Reevaluation #3: 12/27/23 02:47 Patient informed of results questions answered Reevaluation #4: Was pt. sent in by a medical professional or institution (, PA, TOGGLE PRESS OPERATOR, urgent care, hospital, or fci...) When possible be specific @ -no Did you speak to anyone other than the patient for history (EMS, parent, family, police, friend...)? What history was obtained from this source @ -no Did you review nursing and triage notes (agree or disagree)? Why? @ -agree Are old charts reviewed (outside hosp., previous admission, EMS record, old EKG, old radiological studies, urgent care reports/EKG's, fci records)? Report findings @ -yes Differential Diagnosis (chest pain, altered mental status, abdominal pain women, abdominal pain men, vaginal bleeding, weakness, fever, dyspnea, syncope, headache, dizziness, GI bleed, back pain, seizure, CVA, palpatations, mental health, musculoskeletal)? @ -prior EKG interpreted by me (3pts min.). @ -no X-rays interpreted by me (1pt min.). @ -no CT interpreted by me (1pt min.). @ -no U/S interpreted by me (1pt. min.). @ -no What testing was considered but not performed or refused? (CT, X-rays, U/S, labs)? Why? @ -none What meds were considered but not given or refused? Why? @ -none Did you discuss the management of the patient with other professionals (professionals i.e. , PA, TOGGLE PRESS OPERATOR, lab, RT, psych nurse, social worker clinical, animal care attendant, teacher, bank operations officer, pillowcase cleaner)? Give summary @ -no Was smoking cessation discussed for >3mins.? @ -no Was critical care preformed (if so, how long)? @ -no Were there social determinants of health that impacted care today? How? (Homelessness, low income, unemployed, alcoholism, drug addiction, transportation, low edu. Level, literacy, decrease access to med. care, long term, rehab)? @ -none Was there de-escalation of care discussed even if they declined (Discuss DNR or withdrawal of care, Hospice)? DNR status @ -no What co-morbidities impacted this encounter? (DM, HTN, Smoking, COPD, CAD, Cancer, CVA, ARF, Chemo, Hep., AIDS, mental health diagnosis, sleep apnea, morbid obesity)? @ -none Was patient admitted / discharged? Hospital course, mention meds given and route, prescriptions, significant lab abnormalities, going to OR and other per tinent info. @ - 63 female to the ER for evaluation of nausea and vomiting. Persistent nausea vomiting weakness unable to keep anything down and significant alcoholic ketoacidosis. Patient will be admitted for further evaluation and management Admitted Undiagnosed new problem with uncertain prognosis? @ -no Drug Therapy requiring intensive monitoring for toxicity (Heparin, Nitro, Insulin, Cardizem)? @ -no Were any procedures done? @ -no Diagnosis/symptom? @ -Alcohol withdrawal with nausea vomiting Acute, or Chronic, or Acute on Chronic? @ -Acute Uncomplicated (without systemic symptoms) or Complicated (systemic symptoms)? @ -Complicated Side effects of treatment? @ -no Exacerbation, Progression, or Severe Exacerbation? @ -exacerbation Poses a threat to life or bodily function? How? (Chest pain, [place], [place], pneumonia, PE, COPD, DKA, ARF, appy, cholecystitis, CVA, Diverticulitis, Homicidal, Suicidal, threat to staff... and all critical care pts) @ -yes significant alcohol withdrawal - Consultations Consultation #1: Spoke with marielle who agrees to admit this patient Medical Decision Making - Medical Decision Making 63 female to the ER for evaluation of nausea and vomiting. Persistent nausea vomiting weakness unable to keep anything down and significant alcoholic ketoacidosis. Patient will be admitted for further evaluation and management - Lab Data Result diagrams: 12/28/23 11:51 12/29/23 13:15 Lab Results 12/27/23 12/27/23 12/27/23 Range/Units 01:05 01:05 01:05 WBC 3.5 L (3.8-10.6) k/uL RBC 3.84 (3.80-5.40) m/uL Hgb 12.7 (11.4-16.0) gm/dL Hct 38.2 (34.0-46.0) % MCV 99.6 (80.0-100.0) fL MCH 32.9 (25.0-35.0) pg MCHC 33.1 (31.0-37.0) g/dL RDW 15.3 (11.5-15.5) % Plt Count 173 (150-450) k/uL MPV 8.7 Neutrophils % 77 % Lymphocytes % 17 % Monocytes % 4 % Eosinophils % 0 % Basophils % 1 % Neutrophils # 2.7 (1.3-7.7) k/uL Lymphocytes # 0.6 L (1.0-4.8) k/uL Monocytes # 0.1 (0-1.0) k/uL Eosinophils # 0.0 (0-0.7) k/uL Basophils # 0.0 (0-0.2) k/uL Macrocytosis Slight PT 10.5 (10.0-12.5) sec INR 1.0 (<1.2) APTT 23.4 (22.0-30.0) sec Sodium 135 L (137-145) mmol/L Potassium 4.5 (3.5-5.1) mmol/L Chloride 102 (98-107) mmol/L Carbon Dioxide 13 L (22-30) mmol/L Anion Gap 20 mmol/L BUN 15 (7-17) mg/dL Creatinine 0.72 (0.52-1.04) mg/dL Est GFR (CKD-EPI)AfAm >90 (>60 ml/min/1.73 sqM) Est GFR (CKD-EPI)NonAf >90 (>60 ml/min/1.73 sqM) Glucose 70 L (74-99) mg/dL Calcium 7.8 L (8.4-10.2) mg/dL Phosphorus 3.7 (2.5-4.5) mg/dL Magnesium 1.7 (1.6-2.3) mg/dL Total Bilirubin 0.9 (0.2-1.3) mg/dL AST 280 H (14-36) U/L ALT 144 H (4-34) U/L Alkaline Phosphatase 46 (38-126) U/L Troponin I (0.000-0.034) ng/mL Total Protein 7.1 (6.3-8.2) g/dL Albumin 4.5 (3.5-5.0) g/dL 12/27/23 Range/Units 01:05 WBC (3.8-10.6) k/uL RBC (3.80-5.40) m/uL Hgb (11.4-16.0) gm/dL Hct (34.0-46.0) % MCV (80.0-100.0) fL MCH (25.0-35.0) pg MCHC (31.0-37.0) g/dL RDW (11.5-15.5) % Plt Count (150-450) k/uL MPV Neutrophils % % Lymphocytes % % Monocytes % % Eosinophils % % Basophils % % Neutrophils # (1.3-7.7) k/uL Lymphocytes # (1.0-4.8) k/uL Monocytes # (0-1.0) k/uL Eosinophils # (0-0.7) k/uL Basophils # (0-0.2) k/uL Macrocytosis PT (10.0-12.5) sec INR (<1.2) APTT (22.0-30.0) sec Sodium (137-145) mmol/L Potassium (3.5-5.1) mmol/L Chloride (98-107) mmol/L Carbon Dioxide (22-30) mmol/L Anion Gap mmol/L BUN (7-17) mg/dL Creatinine (0.52-1.04) mg/dL Est GFR (CKD-EPI)AfAm (>60 ml/min/1.73 sqM) Est GFR (CKD-EPI)NonAf (>60 ml/min/1.73 sqM) Glucose (74-99) mg/dL Calcium (8.4-10.2) mg/dL Phosphorus (2.5-4.5) mg/dL Magnesium (1.6-2.3) mg/dL Total Bilirubin (0.2-1.3) mg/dL AST (14-36) U/L ALT (4-34) U/L Alkaline Phosphatase (38-126) U/L Troponin I <0.012 (0.000-0.034) ng/mL Total Protein (6.3-8.2) g/dL Albumin (3.5-5.0) g/dL Disposition Clinical Impression: Alcohol poisoning, Alcoholism /alcohol abuse, Acute anxiety, Dehydration, Alcohol withdrawal syndrome, Nausea & vomiting Disposition: ADMITTED IP TO THIS HOSP Condition: Stable Is patient prescribed a controlled substance at d/c from ED?: No
[2023-12-27] MEDS: LORazepam 2 MG/ML INJ IV PRN ×2 (01:13→04:57)
[2023-12-27] MEDS: SODIUM CHLORIDE 0.9% 1,000 ML IV STA ×2 (01:13→01:50)
[2023-12-27] MEDS: ONDANSETRON 4 MG/2 ML VIAL IVP STA (01:13)
[2023-12-27] MEDS: SODIUM CHLORIDE 0.9% 500 ML 500 ML IV STA (01:14)
[2023-12-27 01:28] LABS: Basophils % (A) 1 %; Eosinophils % (A) 0 %; HCT 38.2 % (34.0-46.0); HGB 12.7 gm/dL (11.4-16.0); Lymphocytes # (A) 0.6 k/uL (1.0-4.8); Lymphocytes % (A) 17 %; MCH 32.9 pg (25.0-35.0); MCHC 33.1 g/dL (31.0-37.0); MCV 99.6 fL (80.0-100.0); Macrocytosis Slight; Mean Platelet Volume 8.7; Monocytes # (A) 0.1 k/uL (0-1.0); Monocytes % (A) 4 %; Neutrophils # (A) 2.7 k/uL (1.3-7.7); Neutrophils % (A) 77 %; Platelet Count 173 k/uL (150-450); RBC 3.84 m/uL (3.80-5.40); RDW 15.3 % (11.5-15.5); WBC 3.5 k/uL (3.8-10.6)
[2023-12-27 01:38] LABS: ALT 144 U/L (4-34); AST 280 U/L (14-36); African American GFR (CKD) >90 (>60 ml/min/1.73 sqM); Albumin 4.5 g/dL (3.5-5.0); Alkaline Phosphatase 46 U/L (38-126); Anion Gap 20 mmol/L; Blood Urea Nitrogen 15 mg/dL (7-17); Calcium 7.8 mg/dL (8.4-10.2); Carbon Dioxide 13 mmol/L (22-30); Chloride 102 mmol/L (98-107); Glucose 70 mg/dL (74-99); Magnesium 1.7 mg/dL (1.6-2.3); Non-African American GFR(CKD) >90 (>60 ml/min/1.73 sqM); Phosphorus 3.7 mg/dL (2.5-4.5); Potassium 4.5 mmol/L (3.5-5.1); Sodium 135 mmol/L (137-145); Total Bilirubin 0.9 mg/dL (0.2-1.3); Total Protein 7.1 g/dL (6.3-8.2)
[2023-12-27 01:53] LABS: Partial Thromboplastin Time 23.4 sec (22.0-30.0); Prothrombin Time 10.5 sec (10.0-12.5)
[2023-12-27] MEDS: PROCHLORPERAZINE INJ 10 MG/2 ML VIAL IVP STA (02:51)
[2023-12-27] MEDS ORDERED: LOPERAMIDE 2 MG CAP PO PRN (03:36)
[2023-12-27] MEDS ORDERED: NALOXONE 0.4 MG/ML 1 ML VIAL IV PRN (03:36)
[2023-12-27] MEDS: SODIUM CHLORIDE 0.9% 1,000 ML IV SCH (04:00)
--- NOTE | 2023-12-27 06:23 | P.HPIM ---
History of Present Illness H&P Date: 12/27/23 Chief Complaint: Nausea vomiting 63-year-old female with hypothyroid Patient coming in for repeated nausea vomiting refractory to all measures that she tried at home. She was here earlier during the day for similar problem she was given antiemetic medications once at home. She reports that her vomiting was uncontrollable for which she decided to come back in for treatment. She admits to heavy alcohol consumption on daily basis denies any GI bleeding denies any any hematemesis or coffee-ground vomiting denies any fevers chills coughing chest pain trouble breathing or abdominal pain denies any diarrhea or changes in bowel or urinary habits. She has been through alcohol withdrawal in the past denies any history of seizures. review of systems Pertinent positives as noted in HPI. All other systems were reviewed and are negative on exam Constitutional: No acute distress, conversant, pleasant Eyes: Anicteric sclerae, moist conjunctiva, Pupils equal round reactive to light ENMT: NC/AT Oropharynx clear, no erythema, or exudates Neck: Supple, no masses, or JVD No carotid bruits No thyromegaly Lungs: Clear to auscultation Clear to percussion Normal respiratory effort, no accessory muscle use Cardiovascular: Heart regular in rate and rhythm, No murmurs, gallops, or rubs No peripheral edema Abdominal: Soft Nontender, no guarding, rebound or rigidity Abdomen moving with respiration Normoactive bowel sounds Extremities: No digital cyanosis No clubbing Pedal pulses intact and symmetrical Radial pulses intact and symmetrical No calf tenderness Psychiatric: Alert and oriented to person, place and time Neuro Muscles Strength 5/5 in all 4 extremities Sensation to light touch grossly present throughout Cranial nerves II-XII grossly intact Past Medical History Past Medical History: Asthma, Cancer, Hypertension, Thyroid Disorder Additional Past Medical History / Comment(s): History of goiter status post thyroidectomy, questionable history of thyroid cancer although this is not clear, bipolar disorder, depression, history of suicidal ideations, history of drug overdose, alcoholism, seasonal rhinitis, psoriasis, breast cysts, history of broken toes in the right foot, History of Any Multi-Drug Resistant Organisms: None Reported Past Surgical History: No Surgical Hx Reported Additional Past Surgical History / Comment(s): Thyroidectomy 1999, SKIN NEVI REMOVED Past Anesthesia/Blood Transfusion Reactions: Previous Problems w/ Anesthesia, Postoperative Nausea & Vomiting (PONV) Additional Past Anesthesia/Blood Transfusion Reaction / Comment(s): Lives in a house with two roommates. ETOH. Pt no longer has a drivers license- she has had 2 DUI's. 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 She is seen at [facility]. Past Psychological History: Anxiety, Bipolar, Depression Smoking Status: Never smoker Past Alcohol Use History: Abuse, Daily, Heavy Past Drug Use History: None Reported - Past Family History Father Family Medical History: Cancer Additional Family Medical History / Comment(s): Father at age 64 of esophageal cancer. Father was an alcoholic and had cirrhosis of the liver. Mother Family Medical History: Cancer Additional Family Medical History / Comment(s): Mother of breast cancer at age 42yrs. Medications and Allergies Home Medications Medication Instructions Recorded Confirmed Type Albuterol Inhaler [Ventolin Hfa 2 puff INHALATION RT-Q6H PRN #1 01/20/23 11/27/23 Rx Inhaler] each Nitroglycerin Sl Tabs [Nitrostat] 0.4 mg SL Q5M PRN 05/18/23 11/27/23 History Acetaminophen Tab [Tylenol] 650 mg PO Q6HR PRN tab 07/19/23 11/27/23 Rx Ondansetron Odt [Zofran ODT] 4 mg PO Q8HR PRN #10 tab 08/04/23 11/27/23 Rx Fexofenadine HCl [Debbi Allergy] 180 mg PO DAILY 08/14/23 11/27/23 History Triamcinolone 0.1% Cream [Kenalog 1 applic TOPICAL BID PRN 08/15/23 11/27/23 History 0.1% Cream] Omeprazole Magnesium [PriLOSEC OTC] 20 mg PO DAILY 10/03/23 11/27/23 History Acamprosate Calcium [Campral] 666 mg PO TID 30 Days #120 tab 10/06/23 11/27/23 Rx Escitalopram [Lexapro] 20 mg PO DAILY 30 Days #30 tab 10/06/23 11/27/23 Rx Folic Acid 1 mg PO DAILY 30 Days #30 tab 10/06/23 11/27/23 Rx Levothyroxine Sodium [Synthroid] 150 mcg PO DAILY 30 Days #30 tab 10/06/23 11/27/23 Rx Thiamine [Vitamin B-1] 100 mg PO DAILY 30 Days #30 tab 10/06/23 11/27/23 Rx lamoTRIgine [LaMICtal] 100 mg PO DAILY 30 Days #30 tab 10/06/23 11/27/23 Rx traZODone HCL 150 mg PO HS 30 Days #30 tablet 10/06/23 11/27/23 Rx Fluticasone Nasal [place] [Flonase 2 spr EA NOSTRIL DAILY 10/14/23 11/27/23 History Nasal [place]] Multivitamins, Thera [Multivitamin 1 tab PO DAILY 10/14/23 11/27/23 History (formulary)] Calcium Carbonate [Tums] 500 mg PO AC-TID tab 11/04/23 11/27/23 Rx Metoprolol Tartrate [Lopressor] 12.5 mg PO BID 11/18/23 11/27/23 History diazePAM [Valium] 5 mg PO Q8H PRN 3 Days #9 tab 11/22/23 11/27/23 Rx chlordiazePOXIDE HCl [Librium] 25 mg PO TID 6 Days #18 capsule 12/08/23 Rx Allergies Allergy/AdvReac Type Severity Reaction Status Date / Time clindamycin Allergy Unknown Rash/Hives Verified 12/27/23 00:58 acetylcysteine AdvReac Anaphylaxis Verified 12/27/23 00:58 [From Mucomyst] citalopram [From Celexa] AdvReac Hallucinati Verified 12/27/23 00:58 ons diphenhydramine HCl AdvReac Rapid Verified 12/27/23 00:58 [From Benadryl] Heart Rate Physical Exam Vitals: Vital Signs Temp Pulse Resp BP Pulse Ox 12/27/23 04:00 62 18 108/69 97 12/27/23 03:00 71 18 119/80 96 12/27/23 02:00 80 24 108/77 98 12/27/23 00:55 98.9 F 85 20 135/92 98 Intake and Output 12/26/23 12/26/23 12/27/23 14:59 22:59 06:59 Other: Weight 77.111 kg Results CBC & Chem 7: 12/27/23 01:05 12/27/23 01:05 Labs: Abnormal Lab Results - Last 24 Hours (Table) 12/27/23 12/27/23 Range/Units 01:05 01:05 WBC 3.5 L (3.8-10.6) k/uL Lymphocytes # 0.6 L (1.0-4.8) k/uL Sodium 135 L (137-145) mmol/L Carbon Dioxide 13 L (22-30) mmol/L Glucose 70 L (74-99) mg/dL Calcium 7.8 L (8.4-10.2) mg/dL AST 280 H (14-36) U/L ALT 144 H (4-34) U/L Assessment and Plan Assessment: 63-year-old female with hypothyroid alcohol dependence and abuse coming in for refractory nausea vomiting I discussed the case with ED doctor accepted the admission for refractory nausea vomiting secondary to alcohol abuse with anticipated length of stay less than 2 midnights Acute severe alcohol intoxication with alcohol dependence and abuse EtOH level 235 done at 6 PM yesterday when she first presented to the ED Anion gap metabolic acidosis secondary to above Bicarb 13 anion gap 20 BUN 15 creatinine 0.72 Benzos per CIWA scale Thiamine p.o. daily IV fluid hydration normal saline 130 cc/h status post 2 L normal saline boluses Seizure precautions Withdrawal precautions Supportive care Zofran 4 mg IV push every 8 hours as needed Omeprazole 20 mg p.o. daily Hypothyroid Resume levothyroxine home medication Full code DVT prophylaxis mechanical Blood work otherwise unremarkable showing white count 3.5 hemoglobin 12.7 platelets 173 Sodium 135 potassium 4.5 unremarkable
[2023-12-27] MEDS: LEVOTHYROXINE 75 MCG TAB PO SCH (07:22)
[2023-12-27] MEDS: PANTOPRAZOLE 40 MG TABLET PO SCH (07:22)
[2023-12-27] MEDS: ONDANSETRON 4 MG/2 ML VIAL IVP PRN (10:05)
[2023-12-27] MEDS: ACETAMINOPHEN TAB 325 MG TAB PO PRN (16:08)
[2023-12-28] MEDS: PROCHLORPERAZINE INJ 10 MG/2 ML VIAL IVP STA (03:40)
[2023-12-28] MEDS: ALBUTEROL NEBULIZED 2.5 MG/3 ML INHALATION PRN (10:08)
[2023-12-28] MEDS: ESCITALOPRAM 20 MG TAB PO SCH (10:29)
[2023-12-28] MEDS: METOPROLOL TARTRATE 12.5 MG TAB PO SCH (10:29)
[2023-12-28] MEDS: THIAMINE 100 MG TAB PO SCH (10:29)
[2023-12-28] MEDS: ENOXAPARIN 40 MG/0.4 ML SYRINGE SQ SCH (10:29)
[2023-12-28] MEDS: lamoTRIgine 100 MG TAB PO SCH (10:30)
--- NOTE | 2023-12-28 11:01 | P.PN ---
Subjective Progress Note Date: 12/28/23 Hospital Course: 63-year-old female with history of alcohol dependence, hypothyroidism, hypertension, depression/anxiety presenting for alcohol withdrawal. On arrival, vital signs within normal limits. WBC 3.5, bicarb 13, anion gap 20, creatinine 0.72, calcium 7.8, glucose 70, AST 280, ALT 144, total bili 0.9, troponin negative. No imaging. Patient admitted for alcohol withdrawal symptoms. Subjective: Patient seen and examined at bedside. No acute events overnight. Continues to have nausea and vomiting, still feeling shaky whenever she gets up. Pertinent positives and negatives as discussed above, a complete review of systems was performed and all other systems are negative. Vitals Signs Reviewed. General: Nontoxic, no distress, appears at stated age Derm: Warm, dry Head: Atraumatic, normocephalic, symmetric Eyes: EOMI, no lid lag, anicteric sclera Mouth: No lip lesion, mucus membranes moist Cardiovascular: S1S2 reg, no murmur Lungs: CTA bilateral, no rhonchi, no rales, no accessory muscle use Abdominal: Soft, nontender to palpation, no guarding, no appreciable organomegaly Ext: No gross muscle atrophy, no edema, no contractures Neuro: CN II-XI grossly intact, no focal neuro deficits, extension trauma Psych: Alert, oriented, appropriate affect Data Reviewed Today: Pertinent Labs: No new labs available, CBC and CMP pending, will be reviewed when available Imaging: no new imaging Assessment and Plan: Active: Alcohol withdrawal Acute severe alcohol intoxication Alcohol dependence Anion gap metabolic acidosis secondary to above Transaminitis secondary to chronic alcohol use Hypocalcemia Ativan as needed per CIWA score, monitor for sedation Thiamine 100 mg daily Continue normal saline at 75 cc an hour CMP pending Hypertension Depression/anxiety Hypothyroidism GERD -Restarted home medications DVT ppx: lovenox Code status: FC Anticipated discharge place: Pending clinical course Anticipated discharge time: Pending clinical course Objective - Vital Signs Vital signs: Vital Signs Temp 98.2 F 12/28/23 07:45 Pulse 62 12/28/23 07:45 Resp 18 12/28/23 07:45 BP 155/94 12/28/23 07:45 Pulse Ox 99 12/28/23 07:45 FiO2 Intake & Output 12/27/23 12/28/23 12/28/23 18:59 06:59 18:59 Intake Total 600 Balance 600 Intake: IV 600 Sodium Chloride 0.9% 1, 600 000 ml @ 75 mls/hr IV . [id number] [facility] Rx#:[id number] Other: # Voids 2 6 # Bowel Movements 1 - Labs CBC & Chem 7: 12/27/23 01:05 12/27/23 01:05
[2023-12-28] MEDS: LORazepam 2 MG/ML INJ IV PRN (14:17)
[2023-12-28 16:25] LABS: ALT 135 U/L (8-44); AST 178 U/L (13-35); Albumin 4.2 g/dL (3.8-4.9); Albumin/Globulin Ratio 1.83 Ratio (1.60-3.17); Alkaline Phosphatase 40 U/L (41-126); BUN/Creat Ratio 6.75 Ratio (12.00-20.00); Blood Urea Nitrogen 5.4 mg/dL (9.0-27.0); Calcium 8.6 mg/dL (8.7-10.3); Carbon Dioxide 23.6 mmol/L (21.6-31.8); Chloride 97 mmol/L (96-109); Globulin 2.3 g/dL (1.6-3.3); Glucose 88 mg/dL (70-110); Phosphorus 1.3 mg/dL (2.4-5.1); Potassium 3.8 mmol/L (3.5-5.5); Sodium 138 mmol/L (135-145); Total Bilirubin 0.7 mg/dL (0.3-1.2); Total Protein 6.5 g/dL (6.2-8.2)
[2023-12-28 16:41] LABS: Basophils # (A) 0.03 X 10*3/uL (0.00-0.10); Basophils % (A) 0.9 %; Eosinophils # (A) 0.08 X 10*3/uL (0.04-0.35); Eosinophils % (A) 2.3 %; HCT 35.5 % (37.2-46.3); HGB 11.9 g/dL (12.0-15.0); Lymphocytes # (A) 0.41 X 10*3/uL (0.90-5.00); Lymphocytes % (A) 11.8 %; MCH 32.3 pg (27.0-32.0); MCHC 33.5 g/dL (32.0-37.0); MCV 96.5 FL (80.0-97.0); Mean Platelet Volume 11.5 FL (9.5-12.2); Monocytes # (A) 0.23 X 10*3/uL (0.20-1.00); Monocytes % (A) 6.6 %; NRBC Per 100 WBC 0 X 10*3/uL (0.00-0.01); Neutrophils # (A) 2.68 X 10*3/uL (1.80-7.70); Neutrophils % (A) 77.5 %; Platelet Count 126 X 10*3/uL (140-440); RBC 3.68 X 10*6/uL (4.10-5.20); RDW 15.4 % (11.5-14.5); WBC 3.46 X 10*3/uL (4.50-10.00)
[2023-12-28] MEDS: traZODone HCL 50 MG TAB PO SCH (20:24)
[2023-12-29 08:26] VITALS: RESP 18; TEMP 99.4
[2023-12-29 14:19] LABS: ALT 126 U/L (4-34); AST 160 U/L (14-36); African American GFR (CKD) >90 (>60 ml/min/1.73 sqM); Albumin 4.6 g/dL (3.5-5.0); Albumin/Globulin Ratio 1.6; Alkaline Phosphatase 52 U/L (38-126); Anion Gap 9 mmol/L; Blood Urea Nitrogen 3 mg/dL (7-17); Calcium 9.4 mg/dL (8.4-10.2); Carbon Dioxide 28 mmol/L (22-30); Chloride 95 mmol/L (98-107); Globulin 2.9 g/dL; Glucose 109 mg/dL (74-99); Non-African American GFR(CKD) >90 (>60 ml/min/1.73 sqM); Potassium 3.6 mmol/L (3.5-5.1); Sodium 132 mmol/L (137-145); Total Protein 7.5 g/dL (6.3-8.2)
[2023-12-29 14:53] VITALS: BP 149/89; PULSE 57
--- NOTE | 2023-12-29 16:16 | P.DS ---
Providers Date of admission: 12/27/23 03:37 Expected date of discharge: 12/29/23 Attending physician: Deb Moe MD Primary care physician: [facility] Hospital Course: Discharge Diagnosis: Alcohol withdrawal Acute alcohol intoxication Alcohol dependence Anion gap metabolic acidosis secondary to above Alcoholic gastritis Hyponatremia Transmintis due to ETOH intake Hypocalcemia Hypertension Depression/anxiety Hypothyroidism GERD Hospital Course: Patient is a 63-year-old female with known alcohol dependency, hypothyroidism, hypertension, depression who presented to the ER with complaints of intractable nausea and vomiting associated with alcohol withdrawal. On arrival to the emergency department her vital signs are within normal limits. Initial laboratory analysis was remarkable for carbon dioxide of 13 AST 280 and ALT 144. She has a mated for alcohol withdrawal and transaminitis. Her liver enzymes continue to downtrend. Her alcohol withdrawal improved. She was no longer having any nausea or vomiting. She felt comfortable with discharge home. She endorses that she has tried Vivitrol and naltrexone in the past and has been unable to tolerate them that is why she continues to take Campral. She will follow-up with her primary care physician after discharge for repeat labs. Follow-up: [facility] in 2 to 3 days. Suggest repeat liver enzymes on follow-up. Medication changes include Protonix 40 mg twice daily and thiamine 100 mg twice daily. Patient seen and examined at bedside. Feeling much better today. No more nausea or vomiting. eating well. States her alcohol withdrawal is much better. Vital signs reviewed and stable. General: Nontoxic, no distress, appears at stated age Cardiovascular: S1S2 reg, no murmur, positive posterior tibial pulse bilateral, Lungs: CTA bilateral, no rhonchi, no rales, no accessory muscle use Abdominal: Soft, nontender to palpation, no guarding, no appreciable organomegaly Ext: No gross muscle atrophy, no edema b/l lower extremities, no contractures Neuro: CN II-XI grossly intact, no focal neuro deficits Psych: Alert, oriented, appropriate affect A total of 45 minutes of time were spent preparing this complex discharge summary. Patient was discharged on 12/29/23. This dictation was prepared using [employer] voice recognition software. Though every attempt is made to correct errors during dictation some may still exist. Patient Condition at Discharge: Stable Plan - Discharge Summary New Discharge Prescriptions: New Pantoprazole [Protonix] 40 mg PO AC-BID #60 tab Thiamine [Vitamin B-1] 100 mg PO BID #60 tab Continue lamoTRIgine [LaMICtal] 100 mg PO DAILY 30 Days #30 tab Escitalopram [Lexapro] 20 mg PO DAILY 30 Days #30 tab Acamprosate Calcium [Campral] 666 mg PO TID 30 Days #120 tab Levothyroxine Sodium [Synthroid] 150 mcg PO DAILY 30 Days #30 tab Metoprolol Tartrate [Lopressor] 12.5 mg PO BID Fexofenadine HCl [Debbi Allergy] 180 mg PO DAILY PRN PRN Reason: Allergy Symptoms traZODone HCL 150 mg PO HS 30 Days #30 tablet Discontinued Ibuprofen [Motrin Ib] 400 - 800 mg PO Q8H PRN PRN Reason: Fever And/ Or Pain Discharge Medication List Fexofenadine HCl [Debbi Allergy] 180 mg PO DAILY PRN 08/14/23 [History] Acamprosate Calcium [Campral] 666 mg PO TID 30 Days #120 tab 10/06/23 [Rx] Escitalopram [Lexapro] 20 mg PO DAILY 30 Days #30 tab 10/06/23 [Rx] Levothyroxine Sodium [Synthroid] 150 mcg PO DAILY 30 Days #30 tab 10/06/23 [Rx] lamoTRIgine [LaMICtal] 100 mg PO DAILY 30 Days #30 tab 10/06/23 [Rx] traZODone HCL 150 mg PO HS 30 Days #30 tablet 10/06/23 [Rx] Metoprolol Tartrate [Lopressor] 12.5 mg PO BID 11/18/23 [History] Pantoprazole [Protonix] 40 mg PO AC-BID #60 tab 12/29/23 [Rx] Thiamine [Vitamin B-1] 100 mg PO BID #60 tab 12/29/23 [Rx] Follow up Appointment(s)/Referral(s): [facility] [NON-STAFF] - As Needed (Call [facility] to set up Meals on Wheels. ) [facility] [Primary Care Provider] - 1-2 days Nathaly Hines MD [STAFF PHYSICIAN] - 2 Weeks Activity/Diet/Wound Care/Special Instructions: Activity: As tolerated Diet: Heart Healthy Special Instructions: Abstain from alcohol I suggest that on your follow-up with [facility] you have repeat liver enzymes. Discharge/Stand Alone Forms: AA Meetings [facility], Outpatient Counseling, In Substance Abuse Facilities Discharge Disposition: HOME SELF-CARE
[2023-12-29] MEDS ORDERED: PANTOPRAZOLE 40 MG TABLET PO SCH (17:30)
== END 2023-12-29 17:51 | disposition home or self-care (01) ==
LOC: EC 00:53 → 6NMEDSUR 03:37 → 4SSUR 20:12
PROVIDERS: ADMIT Internal Medicine; ATTEND Internal Medicine
DX: F10.239 Alcohol dependence with withdrawal, unspecified (principal); F10.229 Alcohol dependence with intoxication, unspecified; E87.20 Acidosis, unspecified; E86.0 Dehydration; I10 Essential (primary) hypertension; E83.51 Hypocalcemia; E87.1 Hypo-osmolality and hyponatremia; R74.01 Elevation of levels of liver transaminase levels; E89.0 Postprocedural hypothyroidism; K29.20 Alcoholic gastritis without bleeding; Y90.7 Blood alcohol level of 200-239 mg/100 ml; K21.9 Gastro-esophageal reflux disease without esophagitis; F31.9 Bipolar disorder, unspecified; F41.9 Anxiety disorder, unspecified; Z79.890 Hormone replacement therapy; Z79.899 Other long term (current) drug therapy; Z88.1 Allergy status to other antibiotic agents; Z88.8 Allergy status to other drugs, medicaments and biological substances
CPT/HCPCS: 96376 ×4; 96361 ×2; 96372 ×2; 96374; 96375; 99285; 36415; 94640; 93005; 80053 ×3; 83735 ×2; 84100 ×2; 84484; 85025 ×2; 85610; 85730; G0378 ×4; J2060 ×3; J0780 ×2; J3360; J2405 ×2; J1650 ×2

== ENCOUNTER 2023-12-31 21:08 | Emergency (ER) | payer OTHER ==
[2023-12-31] MEDS ORDERED: LORazepam 2 MG/ML INJ IV PRN ×2 (21:27)
[2023-12-31 21:33] VITALS: TEMP 98.4
[2023-12-31] MEDS: THIAMINE 100 MG/ML 2 ML VIAL IM STA (21:48)
[2023-12-31] MEDS: ONDANSETRON 4 MG/2 ML VIAL IVP STA (21:48)
[2023-12-31] MEDS: SODIUM CHLORIDE 0.9% 1,000 ML IV ONE (21:52)
[2023-12-31] MEDS: LORazepam 2 MG/ML INJ IV PRN (21:55)
[2023-12-31] MEDS: KETOROLAC 15 MG/ML 1 ML VIAL IVP STA (21:55)
[2023-12-31 21:56] LABS: Basophils % (A) 0 %; Eosinophils # (A) 0.1 k/uL (0-0.7); Eosinophils % (A) 2 %; HCT 39.5 % (34.0-46.0); HGB 13.8 gm/dL (11.4-16.0); Lymphocytes # (A) 0.5 k/uL (1.0-4.8); Lymphocytes % (A) 14 %; MCH 33.6 pg (25.0-35.0); MCV 95.8 fL (80.0-100.0); Mean Platelet Volume 9.4; Monocytes # (A) 0.3 k/uL (0-1.0); Monocytes % (A) 9 %; Neutrophils # (A) 2.6 k/uL (1.3-7.7); Neutrophils % (A) 73 %; Platelet Count 111 k/uL (150-450); RBC 4.13 m/uL (3.80-5.40); RDW 15.2 % (11.5-15.5); WBC 3.6 k/uL (3.8-10.6)
[2023-12-31 22:06] LABS: ALT 218 U/L (4-34); African American GFR (CKD) >90 (>60 ml/min/1.73 sqM); Anion Gap 13 mmol/L; Blood Urea Nitrogen 6 mg/dL (7-17); Calcium 9.7 mg/dL (8.4-10.2); Carbon Dioxide 22 mmol/L (22-30); Chloride 95 mmol/L (98-107); Glucose 103 mg/dL (74-99); Non-African American GFR(CKD) >90 (>60 ml/min/1.73 sqM); Sodium 130 mmol/L (137-145)
[2023-12-31 22:08] LABS: AST 302 U/L (14-36); Albumin 4.8 g/dL (3.5-5.0); Alkaline Phosphatase 38 U/L (38-126); Potassium 4.8 mmol/L (3.5-5.1); Total Bilirubin 1.3 mg/dL (0.2-1.3); Total Protein 7.9 g/dL (6.3-8.2)
--- NOTE | 2023-12-31 23:10 | ED ---
Alcohol HPI - General Chief Complaint: Alcohol Stated Complaint: Tremors Time Seen by Provider: 12/31/23 21:21 Source: patient, EMS Mode of arrival: EMS Limitations: no limitations - History of Present Illness Initial Comments: 63-year-old female with history of alcoholism presenting for alcohol withdrawal. Patient was just discharged 2 days earlier after being admitted for alcohol withdrawal, patient has been admitted at our facility for withdrawal on multiple occasions. She states that after she left she started tremoring again, so she had a glass of alcohol. She states that she normally drinks a pint per day. She admits to headache and nausea. No vomiting, chest pain, difficulty breathing, fever, chills, cough, congestion, sore throat, dizziness. - Related Data Home Medications Medication Instructions Recorded Confirmed Fexofenadine HCl [Debbi Allergy] 180 mg PO DAILY PRN 08/14/23 12/27/23 Metoprolol Tartrate [Lopressor] 12.5 mg PO BID 11/18/23 12/27/23 Previous Rx's Medication Instructions Recorded Acamprosate Calcium [Campral] 666 mg PO TID 30 Days #120 tab 10/06/23 Escitalopram [Lexapro] 20 mg PO DAILY 30 Days #30 tab 10/06/23 Levothyroxine Sodium [Synthroid] 150 mcg PO DAILY 30 Days #30 tab 10/06/23 lamoTRIgine [LaMICtal] 100 mg PO DAILY 30 Days #30 tab 10/06/23 traZODone HCL 150 mg PO HS 30 Days #30 tablet 10/06/23 Pantoprazole [Protonix] 40 mg PO AC-BID #60 tab 12/29/23 Thiamine [Vitamin B-1] 100 mg PO BID #60 tab 12/29/23 LORazepam [Ativan] 1 mg PO TID PRN 3 Days #9 tab 12/31/23 Allergies Allergy/AdvReac Type Severity Reaction Status Date / Time clindamycin Allergy Unknown Rash/Hives Verified 12/27/23 07:45 acetylcysteine AdvReac Anaphylaxis Verified 12/27/23 07:45 [From Mucomyst] citalopram [From Celexa] AdvReac Hallucinati Verified 12/27/23 07:45 ons diphenhydramine HCl AdvReac Rapid Verified 12/27/23 07:45 [From Benadryl] Heart Rate Review of Systems ROS Statement: Those systems with pertinent positive or pertinent negative responses have been documented in the HPI. ROS Other: All systems not noted in ROS Statement are negative. Past Medical History Past Medical History: Asthma, Cancer, Hypertension, Thyroid Disorder Additional Past Medical History / Comment(s): History of goiter status post thyroidectomy, questionable history of thyroid cancer although this is not clear, bipolar disorder, depression, history of suicidal ideations, history of drug overdose, alcoholism, seasonal rhinitis, psoriasis, breast cysts, history of broken toes in the right foot, History of Any Multi-Drug Resistant Organisms: None Reported Past Surgical History: No Surgical Hx Reported Additional Past Surgical History / Comment(s): Thyroidectomy 1999, SKIN NEVI REMOVED Past Anesthesia/Blood Transfusion Reactions: Previous Problems w/ Anesthesia, Postoperative Nausea & Vomiting (PONV) Additional Past Anesthesia/Blood Transfusion Reaction / Comment(s): Lives in a house with two roommates. ETOH. Pt no longer has a drivers license- she has had 2 DUI's. 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 She is seen at [facility]. Past Psychological History: Anxiety, Bipolar, Depression Smoking Status: Never smoker Past Alcohol Use History: Abuse, Daily, Heavy Past Drug Use History: None Reported - Past Family History Father Family Medical History: Cancer Additional Family Medical History / Comment(s): Father at age 64 of esophageal cancer. Father was an alcoholic and had cirrhosis of the liver. Mother Family Medical History: Cancer Additional Family Medical History / Comment(s): Mother of breast cancer at age 42yrs. General Exam Limitations: no limitations General appearance: alert, in no apparent distress Head exam: Present: atraumatic, normocephalic Eye exam: Present: normal appearance Neck exam: Present: normal inspection Respiratory exam: Present: normal lung sounds bilaterally. Absent: respiratory distress, wheezes, rales, rhonchi, stridor Cardiovascular Exam: Present: regular rate, normal rhythm, normal heart sounds. Absent: systolic murmur, diastolic murmur, rubs, gallop, clicks Neurological exam: Present: alert, oriented X3 Psychiatric exam: Present: normal affect, normal mood Skin exam: Present: warm, dry Course Vital Signs 12/31/23 12/31/23 21:13 23:28 Temperature 98.4 F 98.4 F Pulse Rate 74 71 Respiratory 19 16 Rate Blood Pressure 138/99 137/99 O2 Sat by Pulse 99 95 Oximetry Medical Decision Making - Medical Decision Making Was pt. sent in by a medical professional or institution (EDY Riley, MANAGER FILTER, urgent care, hospital, or residential...) When possible be specific @ -No Did you speak to anyone other than the patient for history (EMS, parent, family, police, friend...)? What history was obtained from this source @ -No Did you review nursing and triage notes (agree or disagree)? Why? @ -I reviewed and agree with nursing and triage notes Were old charts reviewed (outside hosp., previous admission, EMS record, old EKG, old radiological studies, urgent care reports/EKG's, residential records)? Report findings @ -Previous admissions reviewed Differential Diagnosis (chest pain, altered mental status, abdominal pain women, abdominal pain men, vaginal bleeding, weakness, fever, dyspnea, syncope, headac he, dizziness, GI bleed, back pain, seizure, CVA, palpatations, mental health, musculoskeletal)? @ -Differential includes alcohol withdrawal, neurologic disorder, infectious process, this is not an all-inclusive list EKG interpreted by me (3pts min.). @ -As above X-rays interpreted by me (1pt min.). @ -None done CT interpreted by me (1pt min.). @ -None done U/S interpreted by me (1pt. min.). @ -None done What testing was considered but not performed or refused? (CT, X-rays, U/S, labs)? Why? @ -None What meds were considered but not given or refused? Why? @ -None Did you discuss the management of the patient with other professionals (professionals i.e. EDY Riley, MANAGER FILTER, lab, RT, psych nurse, rn social services, insole coverer, teacher, electorate officer, employment evaluator/case manager)? Give summary @ -No Was smoking cessation discussed for >3mins.? @ -No Was critical care preformed (if so, how long)? @ -No Were there social determinants of health that impacted care today? How? (Homelessness, low income, unemployed, alcoholism, drug addiction, transportation, low edu. Level, literacy, decrease access to med. care, alf, rehab)? @ -No Was there de-escalation of care discussed even if they declined (Discuss DNR or withdrawal of care, Hospice)? DNR status @ -No What co-morbidities impacted this encounter? (DM, HTN, Smoking, COPD, CAD, Cancer, CVA, ARF, Chemo, Hep., AIDS, mental health diagnosis, sleep apnea, morbid obesity)? @ -None Was patient admitted / discharged? Hospital course, mention meds given and route, prescriptions, significant lab abnormalities, going to OR and other pertinent info. @ -63-year-old female presenting with chief complaint of alcohol withdrawal. She normally drinks a pint per day, she was discharged from our facility 2 days ago after being treated for alcohol withdrawal. She was starting to tremor again today so she drank to try to subdue her symptoms. She admits to nausea and headache. History and physical exam are conducted. Initial CIWA score 14. Lab work shows WBC 3.6 consistent with her most recent labs. Elevated AST and ALT, likely due to alcohol abuse. Patient had 1 dose of Ativan 1 mg here in the ER, she is resting comfortably and vital signs are WNL. I do not believe that the patient will benefit more from admission versus treatment at home with Ativan given her recent treatment and discharge. She will be sent a 3-day supply of Ativan and is instructed to follow-up with her PCP. Discharged home. Follow-up with PCP. Report back to ER with any new or worsening symptoms. Discussed return parameters and answered all questions. Patient conveyed verbal understanding and agreed to the plan. I discussed this case in detail with my attending Dr. Patel Undiagnosed new problem with uncertain prognosis? @ -No Drug Therapy requiring intensive monitoring for toxicity (Heparin, Nitro, Insulin, Cardizem)? @ -No Were any procedures done? @ -No Diagnosis/symptom? @ -Alcohol withdrawal Acute, or Chronic, or Acute on Chronic? @ -Acute Uncomplicated (without systemic symptoms) or Complicated (systemic symptoms)? @ -Uncomplicated Side effects of treatment? @ -No Exacerbation, Progression, or Severe Exacerbation? @ -No Poses a threat to life or bodily function? How? (Chest pain, USA, CT, pneumonia, PE, COPD, DKA, ARF, appy, cholecystitis, CVA, Diverticulitis, Homicidal, Suicidal, threat to staff... and all critical care pts) @ -low likelihood - Lab Data Result diagrams: 12/31/23 21:40 12/31/23 21:40 Lab Results 12/31/23 12/31/23 Range/Units 21:40 21:40 WBC 3.6 L (3.8-10.6) k/uL RBC 4.13 (3.80-5.40) m/uL Hgb 13.8 (11.4-16.0) gm/dL Hct 39.5 (34.0-46.0) % MCV 95.8 (80.0-100.0) fL MCH 33.6 (25.0-35.0) pg MCHC 35.0 (31.0-37.0) g/dL RDW 15.2 (11.5-15.5) % Plt Count 111 L (150-450) k/uL MPV 9.4 Neutrophils % 73 % Lymphocytes % 14 % Monocytes % 9 % Eosinophils % 2 % Basophils % 0 % Neutrophils # 2.6 (1.3-7.7) k/uL Lymphocytes # 0.5 L (1.0-4.8) k/uL Monocytes # 0.3 (0-1.0) k/uL Eosinophils # 0.1 (0-0.7) k/uL Basophils # 0.0 (0-0.2) k/uL Sodium 130 L (137-145) mmol/L Potassium 4.8 (3.5-5.1) mmol/L Chloride 95 L (98-107) mmol/L Carbon Dioxide 22 (22-30) mmol/L Anion Gap 13 mmol/L BUN 6 L (7-17) mg/dL Creatinine 0.63 (0.52-1.04) mg/dL Est GFR (CKD-EPI)AfAm >90 (>60 ml/min/1.73 sqM) Est GFR (CKD-EPI)NonAf >90 (>60 ml/min/1.73 sqM) Glucose 103 H (74-99) mg/dL Calcium 9.7 (8.4-10.2) mg/dL Total Bilirubin 1.3 (0.2-1.3) mg/dL AST 302 H (14-36) U/L ALT 218 H (4-34) U/L Alkaline Phosphatase 38 (38-126) U/L Total Protein 7.9 (6.3-8.2) g/dL Albumin 4.8 (3.5-5.0) g/dL Disposition Clinical Impression: Alcohol withdrawal Disposition: HOME SELF-CARE Condition: Good Instructions (If sedation given, give patient instructions): Alcohol Withdrawal (ED) Additional Instructions: Follow-up with PCP. Report back to ER with any new or worsening symptoms. Prescriptions: LORazepam [Ativan] 1 mg PO TID PRN 3 Days #9 tab PRN Reason: Alcohol Withdrawal Is patient prescribed a controlled substance at d/c from ED?: Yes If prescribed controlled substance>3 days was MAPS reviewed?: Prescribed <3 Days Referrals: [facility] [Primary Care Provider] - 1-2 days Time of Disposition: 23:12
[2023-12-31 23:37] VITALS: BP 137/99; PULSE 71; RESP 16
[2024-01-01] MEDS ORDERED: THIAMINE 100 MG TAB PO SCH (09:00)
== END 2023-12-31 23:28 | disposition home or self-care (01) ==
LOC: EC 21:08
DX: F10.239 Alcohol dependence with withdrawal, unspecified (principal); R74.01 Elevation of levels of liver transaminase levels; I10 Essential (primary) hypertension; J45.909 Unspecified asthma, uncomplicated; Z79.899 Other long term (current) drug therapy; Z88.1 Allergy status to other antibiotic agents; Z88.8 Allergy status to other drugs, medicaments and biological substances
CPT/HCPCS: 99285 ×2; 96374 ×2; 96375 ×3; 96361 ×2; 96372 ×2; 82075; 36415; 80053; 85025; J2060; J3411; J2405; J1885

== ENCOUNTER 2024-01-04 17:09 | Inpatient (IN) | payer OTHER ==
--- NOTE | 2024-01-04 17:50 | ED ---
Alcohol HPI - General Chief Complaint: Alcohol Stated Complaint: ETOH Time Seen by Provider: 01/04/24 17:10 Source: patient, EMS Mode of arrival: EMS Limitations: no limitations - History of Present Illness Initial Comments: This patient is a 63-year-old woman who presents with complaint that she has not been able to stop drinking. She states she usually drinks a pint of vodka sometimes more than that. She states that when she is trying to stop she gets very shaky and anxious and results in her drinking again. Patient states her last drink was yesterday and she is starting to feel anxious again. MD Complaint: alcohol dependence, desires rehab -: hour(s) Previous Visits for Alcohol Intoxication?: Yes Recent Trauma: No Associated Symptoms: nausea Treatments Prior to Arrival: none - Related Data Home Medications Medication Instructions Recorded Confirmed Metoprolol Tartrate [Lopressor] 12.5 mg PO BID 11/18/23 01/04/24 Previous Rx's Medication Instructions Recorded Escitalopram [Lexapro] 20 mg PO DAILY 30 Days #30 tab 10/06/23 Levothyroxine Sodium [Synthroid] 150 mcg PO DAILY 30 Days #30 tab 10/06/23 lamoTRIgine [LaMICtal] 100 mg PO DAILY 30 Days #30 tab 10/06/23 traZODone HCL 150 mg PO HS 30 Days #30 tablet 10/06/23 Pantoprazole [Protonix] 40 mg PO AC-BID #60 tab 12/29/23 Folic Acid 1 mg PO DAILY tab 01/08/24 Multivitamins, Thera [Multivitamin 1 each PO DAILY tab 01/08/24 (formulary)] Thiamine [Vitamin B-1] 100 mg PO DAILY tab 01/08/24 Allergies Allergy/AdvReac Type Severity Reaction Status Date / Time clindamycin Allergy Unknown Rash/Hives Verified 01/04/24 21:10 acetylcysteine AdvReac Anaphylaxis Verified 01/04/24 21:10 [From Mucomyst] citalopram [From Celexa] AdvReac Hallucinati Verified 01/04/24 21:10 ons diphenhydramine HCl AdvReac Rapid Verified 01/04/24 21:10 [From Benadryl] Heart Rate Review of Systems ROS Statement: Those systems with pertinent positive or pertinent negative responses have been documented in the HPI. ROS Other: All systems not noted in ROS Statement are negative. Constitutional: Denies: fever, chills Respiratory: Denies: cough, dyspnea Cardiovascular: Denies: chest pain, palpitations, edema Gastrointestinal: Reports: nausea. Denies: abdominal pain, vomiting, diarrhea Genitourinary: Denies: dysuria, hematuria Musculoskeletal: Denies: back pain Skin: Denies: rash Neurological: Denies: headache, weakness Psychiatric: Reports: anxiety. Denies: depression, homicidal thoughts, suicidal thoughts Past Medical History Past Medical History: Asthma, Cancer, Hypertension, Thyroid Disorder Additional Past Medical History / Comment(s): History of goiter status post thyroidectomy, questionable history of thyroid cancer although this is not clear, bipolar disorder, depression, history of suicidal ideations, history of drug overdose, alcoholism, seasonal rhinitis, psoriasis, breast cysts, history of broken toes in the right foot, History of Any Multi-Drug Resistant Organisms: None Reported Past Surgical History: No Surgical Hx Reported Additional Past Surgical History / Comment(s): Thyroidectomy 1999, SKIN NEVI REMOVED Past Anesthesia/Blood Transfusion Reactions: Previous Problems w/ Anesthesia, Postoperative Nausea & Vomiting (PONV) Additional Past Anesthesia/Blood Transfusion Reaction / Comment(s): Lives in a house with two roommates. ETOH. Pt no longer has a drivers license- she has had 2 DUI's. 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 She is seen at [facility]. Past Psychological History: Anxiety, Bipolar, Depression Smoking Status: Never smoker Past Alcohol Use History: Abuse, Daily, Heavy Past Drug Use History: None Reported - Past Family History Father Family Medical History: Cancer Additional Family Medical History / Comment(s): Father at age 64 of esophageal cancer. Father was an alcoholic and had cirrhosis of the liver. Mother Family Medical History: Cancer Additional Family Medical History / Comment(s): Mother of breast cancer at age 42yrs. General Exam Limitations: no limitations General appearance: alert, in no apparent distress, anxious Head exam: Present: atraumatic, normocephalic Eye exam: Present: normal appearance. Absent: scleral icterus, conjunctival injection ENT exam: Present: normal oropharynx Neck exam: Present: normal inspection Respiratory exam: Present: normal lung sounds bilaterally. Absent: respiratory distress, wheezes, rales, rhonchi, stridor, accessory muscle use Cardiovascular Exam: Present: regular rate, normal rhythm, normal heart sounds. Absent: systolic murmur, diastolic murmur, rubs, gallop GI/Abdominal exam: Present: soft. Absent: distended, tenderness, guarding, rebound, rigid, mass Extremities exam: Present: normal inspection, normal capillary refill. Absent: pedal edema, calf tenderness Back exam: Present: normal inspection. Absent: CVA tenderness (R), CVA tenderness (L) Neurological exam: Present: alert Psychiatric exam: Present: anxious. Absent: homicidal ideation, suicidal ideation Skin exam: Present: warm, dry, intact, normal color. Absent: rash Course Vital Signs 01/04/24 01/04/24 01/04/24 17:19 20:27 21:23 Temperature 98.5 F Pulse Rate 68 82 80 Respiratory 18 18 18 Rate Blood Pressure 135/110 100/73 120/83 O2 Sat by Pulse 98 96 96 Oximetry 01/04/24 01/04/24 01/04/24 22:02 22:07 22:47 Temperature Pulse Rate 77 80 70 Respiratory 20 20 18 Rate Blood Pressure 117/77 129/86 115/96 O2 Sat by Pulse 95 96 98 Oximetry 01/04/24 01/05/24 01/05/24 23:00 00:06 01:01 Temperature Pulse Rate 87 88 76 Respiratory 18 20 16 Rate Blood Pressure 145/99 127/88 112/77 O2 Sat by Pulse 99 93 L 92 L Oximetry 01/05/24 01/05/24 01/05/24 02:06 02:56 03:51 Temperature Pulse Rate 70 71 73 Respiratory 16 14 18 Rate Blood Pressure 103/78 90/64 114/72 O2 Sat by Pulse 94 L 94 L 95 Oximetry 01/05/24 01/05/24 01/05/24 05:05 05:57 08:00 Temperature Pulse Rate 75 64 82 Respiratory 18 16 18 Rate Blood Pressure 132/80 101/75 99/67 O2 Sat by Pulse 96 94 L 98 Oximetry 01/05/24 01/05/24 11:00 12:00 Temperature Pulse Rate 68 85 Respiratory 17 18 Rate Blood Pressure 112/80 O2 Sat by Pulse 94 L 92 L Oximetry Medical Decision Making - Medical Decision Making Was pt. sent in by a medical professional or institution (, PA, ROAD ADVISOR, urgent care, hospital, or care home...) When possible be specific @ -[No] Did you speak to anyone other than the patient for history (EMS, parent, family, police, friend...)? What history was obtained from this source @ -[No] Did you review nursing and triage notes (agree or disagree)? Why? @ -[I reviewed and agree with nursing and triage notes] Were old charts reviewed (outside hosp., previous admission, EMS record, old EKG, old radiological studies, urgent care reports/EKG's, care home records)? Report findings @ -[No old charts were reviewed] Differential Diagnosis (chest pain, altered mental status, abdominal pain women, abdominal pain men, vaginal bleeding, weakness, fever, dyspnea, syncope, headache, dizziness, GI bleed, back pain, seizure, CVA, palpatations, mental health, musculoskeletal)? @ -[Differential Mental Health Depression, anxiety, bipolar, psychosis, schizophrenia, borderline personality, situational depression, adjustment disorder, behavioral disorder, brain tumor, malingering, substance abuse, encephalopathy, medication reaction, dementia, hypothyroidism, degenerative neurologic disorder, lupus.... This is not meant to be all-inclusive list EKG interpreted by me (3pts min.). @ -[As above] X-rays interpreted by me (1pt min.). @ -[None done] CT interpreted by me (1pt min.). @ -[None done] U/S interpreted by me (1pt. min.). @ -[None done] What testing was considered but not performed or refused? (CT, X-rays, U/S, labs)? Why? @ -[None] What meds were considered but not given or refused? Why? @ -[None] Did you discuss the management of the patient with other professionals (professionals i.e. , PA, ROAD ADVISOR, lab, RT, psych nurse, social media campaign manager, software development coordinator, teacher, forest fire officer, case management manager)? Give summary @ -[Case discussed with admitting physician and treatment recommendations are added Was smoking cessation discussed for >3mins.? @ -[No] Was critical care preformed (if so, how long)? @ -[No] Were there social determinants of health that impacted care today? How? (Homelessness, low income, unemployed, alcoholism, drug addiction, transportation, low edu. Level, literacy, decrease access to med. care, [place] [facility], rehab)? @ -[No] Was there de-escalation of care discussed even if they declined (Discuss DNR or withdrawal of care, Hospice)? DNR status @ -[No] What co-morbidities impacted this encounter? (DM, HTN, Smoking, COPD, CAD, Cancer, CVA, ARF, Chemo, Hep., AIDS, mental health diagnosis, sleep apnea, morbid obesity)? @ -[None] Was patient admitted / discharged? Hospital course, mention meds given and route, prescriptions, significant lab abnormalities, going to OR and other pertinent info. @ -[Patient admitted to have CIWA coverage Undiagnosed new problem with uncertain prognosis? @ -[No] Drug Therapy requiring intensive monitoring for toxicity (Heparin, Nitro, Insulin, Cardizem)? @ -[No] Were any procedures done? @ -[No] Diagnosis/symptom? @ -[Acute alcohol withdrawal Acute, or Chronic, or Acute on Chronic? @ -[Acute Uncomplicated (without systemic symptoms) or Complicated (systemic symptoms)? @ -[Complicated by mental status change Side effects of treatment? @ -[No] Exacerbation, Progression, or Severe Exacerbation? @ -[No] Poses a threat to life or bodily function? How? (Chest pain, [place], [place], pneumonia, PE, COPD, DKA, ARF, appy, cholecystitis, CVA, Diverticulitis, Homicidal, Suicidal, threat to staff... and all critical care pts) @ -[yes - Lab Data Result diagrams: 01/07/24 06:43 01/07/24 06:43 Lab Results 01/04/24 01/04/24 Range/Units 17:28 17:28 WBC 3.1 L (3.8-10.6) k/uL RBC 3.70 L (3.80-5.40) m/uL Hgb 12.4 (11.4-16.0) gm/dL Hct 36.4 (34.0-46.0) % MCV 98.5 (80.0-100.0) fL MCH 33.5 (25.0-35.0) pg MCHC 34.0 (31.0-37.0) g/dL RDW 16.1 H (11.5-15.5) % Plt Count 180 D (150-450) k/uL MPV 8.9 Neutrophils % 59 % Lymphocytes % 24 % Monocytes % 12 % Eosinophils % 1 % Basophils % 0 % Neutrophils # 1.8 (1.3-7.7) k/uL Lymphocytes # 0.8 L (1.0-4.8) k/uL Monocytes # 0.4 (0-1.0) k/uL Eosinophils # 0.0 (0-0.7) k/uL Basophils # 0.0 (0-0.2) k/uL Anisocytosis Slight Macrocytosis Slight Sodium 143 (137-145) mmol/L Potassium 3.8 (3.5-5.1) mmol/L Chloride 106 (98-107) mmol/L Carbon Dioxide 22 (22-30) mmol/L Anion Gap 15 mmol/L BUN 10 (7-17) mg/dL Creatinine 0.62 (0.52-1.04) mg/dL Est GFR (CKD-EPI)AfAm >90 (>60 ml/min/1.73 sqM) Est GFR (CKD-EPI)NonAf >90 (>60 ml/min/1.73 sqM) Glucose 87 (74-99) mg/dL Calcium 9.1 (8.4-10.2) mg/dL Total Bilirubin 0.7 (0.2-1.3) mg/dL AST 296 H (14-36) U/L ALT 208 H (4-34) U/L Alkaline Phosphatase 47 (38-126) U/L Total Protein 7.2 (6.3-8.2) g/dL Albumin 4.4 (3.5-5.0) g/dL Serum Alcohol 292 H* mg/dL Disposition Clinical Impression: Alcohol withdrawal delirium, Alcohol intoxication Disposition: ADMITTED IP TO THIS HOSP Condition: Stable Is patient prescribed a controlled substance at d/c from ED?: No
[2024-01-04 17:52] LABS: Anisocytosis Slight; Basophils % (A) 0 %; Eosinophils % (A) 1 %; HCT 36.4 % (34.0-46.0); HGB 12.4 gm/dL (11.4-16.0); Lymphocytes # (A) 0.8 k/uL (1.0-4.8); Lymphocytes % (A) 24 %; MCH 33.5 pg (25.0-35.0); MCV 98.5 fL (80.0-100.0); Macrocytosis Slight; Mean Platelet Volume 8.9; Monocytes # (A) 0.4 k/uL (0-1.0); Monocytes % (A) 12 %; Neutrophils # (A) 1.8 k/uL (1.3-7.7); Neutrophils % (A) 59 %; RDW 16.1 % (11.5-15.5); WBC 3.1 k/uL (3.8-10.6)
[2024-01-04] MEDS: chlordiazePOXIDE 25 MG CAP PO STA (17:57)
[2024-01-04 17:58] LABS: Platelet Count 180 k/uL (150-450)
[2024-01-04 18:38] LABS: ALT 208 U/L (4-34); AST 296 U/L (14-36); African American GFR (CKD) >90 (>60 ml/min/1.73 sqM); Albumin 4.4 g/dL (3.5-5.0); Alkaline Phosphatase 47 U/L (38-126); Anion Gap 15 mmol/L; Blood Urea Nitrogen 10 mg/dL (7-17); Calcium 9.1 mg/dL (8.4-10.2); Carbon Dioxide 22 mmol/L (22-30); Chloride 106 mmol/L (98-107); Glucose 87 mg/dL (74-99); Non-African American GFR(CKD) >90 (>60 ml/min/1.73 sqM); Potassium 3.8 mmol/L (3.5-5.1); Sodium 143 mmol/L (137-145); Total Bilirubin 0.7 mg/dL (0.2-1.3); Total Protein 7.2 g/dL (6.3-8.2)
[2024-01-04 18:52] LABS: Alcohol 292 mg/dL
[2024-01-04] MEDS ORDERED: NALOXONE 0.4 MG/ML 1 ML VIAL IV PRN (20:51)
[2024-01-04] MEDS ORDERED: chlordiazePOXIDE 25 MG CAP PO PRN (20:53)
[2024-01-04] MEDS: FAMOTIDINE 20 MG TAB PO SCH (21:18)
[2024-01-04] MEDS: LORazepam 2 MG/ML INJ IV PRN ×2 (21:26→22:07)
[2024-01-04] MEDS: ONDANSETRON 4 MG/2 ML VIAL IVP PRN (21:26)
[2024-01-04] MEDS: SODIUM CHLORIDE 0.9% 1,000 ML IV SCH (21:26)
[2024-01-04] MEDS: LORazepam 2 MG/ML INJ IV STA (23:01)
--- NOTE | 2024-01-05 01:12 | P.HPIM ---
History of Present Illness H&P Date: 01/04/24 Patient is a 63-year-old female well-known to us with a PMH of alcohol abuse with history of DTs, hypothyroidism, and bipolar disorder who presents to the emergency room for alcohol withdrawal. The patient normally drinks a pint of hard liquor daily but has been trying to cut down on her last drink yesterday as per the ED staff. The patient was undergoing active withdrawals at the time of interview and was confused. The patient had reported that she had developed gradually worsening shakiness and anxiety which brought her to the emergency room. Laboratory evaluation revealed an alcohol level of 292, AST 296, ALT 208, WBC count 3.1. ED documentation reviewed and case discussed with ED provider. Review of systems: Limited due to mental status Physical examination: Vital signs reviewed General: Tremulous female, no distress, appears at stated age, normal weight Derm: no unusual rashes/lesions, warm Head: atraumatic, normocephalic, symmetric Eyes: EOMI, no lid lag, anicteric sclera, pupils equal round reactive to light ENT: Nose and ears atraumatic Neck: No cervical lymphadenopathy, trachea midline, supple Mouth: no lip lesion, mucus membranes moist Cardiovascular: S1S2 reg, no murmur, positive dorsalis pedis pulse bilateral, no edema Lungs: CTA bilateral, no rhonchi, no rales, no accessory muscle use Abdominal: soft, nontender to palpation, no guarding Ext: muscle strength 5 out of 5 in all 4 extremities grossly, no gross muscle atrophy, no contractures, Neuro: CN II-XI grossly intact, no gross focal neuro deficits, hand tremor with tongue fasciculations noted Psych: Anxious appearing female, oriented to self, not oriented to place or time Assessment: Alcohol withdrawal Transaminitis, likely due to alcohol abuse Leukopenia, chronic, at baseline Chronic conditions: Hypothyroidism, bipolar disorder Imaging: None performed Data Review: Laboratory evaluation revealed an alcohol level of 292, AST 296, ALT 208, WBC count 3.1. Plan: Continue with CIWA protocol Continue thiamine and multivitamin IV fluids with normal saline 75 cc/h Fall precautions Continue with Librium 50 mg 3 times daily Monitor electrolytes daily DVT prophylaxis: Lovenox subcu The patient is admitted with an anticipated greater than 2 midnight stay for evaluation of delirium tremens CODE STATUS: Full Code Discussed with: Patient Anticipated discharge place: Home Past Medical History Past Medical History: Asthma, Cancer, Hypertension, Thyroid Disorder Additional Past Medical History / Comment(s): History of goiter status post thyroidectomy, questionable history of thyroid cancer although this is not clear, bipolar disorder, depression, history of suicidal ideations, history of drug overdose, alcoholism, seasonal rhinitis, psoriasis, breast cysts, history of broken toes in the right foot, History of Any Multi-Drug Resistant Organisms: None Reported Past Surgical History: No Surgical Hx Reported Additional Past Surgical History / Comment(s): Thyroidectomy 1999, SKIN NEVI REMOVED Past Anesthesia/Blood Transfusion Reactions: Previous Problems w/ Anesthesia, Postoperative Nausea & Vomiting (PONV) Additional Past Anesthesia/Blood Transfusion Reaction / Comment(s): Lives in a house with two roommates. ETOH. Pt no longer has a drivers license- she has had 2 DUI's. 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 She is seen at [facility]. Past Psychological History: Anxiety, Bipolar, Depression Smoking Status: Never smoker Past Alcohol Use History: Abuse, Daily, Heavy Past Drug Use History: None Reported - Past Family History Father Family Medical History: Cancer Additional Family Medical History / Comment(s): Father at age 64 of esophageal cancer. Father was an alcoholic and had cirrhosis of the liver. Mother Family Medical History: Cancer Additional Family Medical History / Comment(s): Mother of breast cancer at age 42yrs. Medications and Allergies Home Medications Medication Instructions Recorded Confirmed Type Fexofenadine HCl [Debbi Allergy] 180 mg PO DAILY PRN 08/14/23 01/04/24 History Acamprosate Calcium [Campral] 666 mg PO TID 30 Days #120 tab 10/06/23 01/04/24 Rx Escitalopram [Lexapro] 20 mg PO DAILY 30 Days #30 tab 10/06/23 01/04/24 Rx Levothyroxine Sodium [Synthroid] 150 mcg PO DAILY 30 Days #30 tab 10/06/23 01/04/24 Rx lamoTRIgine [LaMICtal] 100 mg PO DAILY 30 Days #30 tab 10/06/23 01/04/24 Rx traZODone HCL 150 mg PO HS 30 Days #30 tablet 10/06/23 01/04/24 Rx Metoprolol Tartrate [Lopressor] 12.5 mg PO BID 11/18/23 01/04/24 History Pantoprazole [Protonix] 40 mg PO AC-BID #60 tab 12/29/23 01/04/24 Rx Thiamine [Vitamin B-1] 100 mg PO BID #60 tab 12/29/23 01/04/24 Rx Allergies Allergy/AdvReac Type Severity Reaction Status Date / Time clindamycin Allergy Unknown Rash/Hives Verified 01/04/24 21:10 acetylcysteine AdvReac Anaphylaxis Verified 01/04/24 21:10 [From Mucomyst] citalopram [From Celexa] AdvReac Hallucinati Verified 01/04/24 21:10 ons diphenhydramine HCl AdvReac Rapid Verified 01/04/24 21:10 [From Benadryl] Heart Rate Physical Exam Vitals: Vital Signs Temp Pulse Resp BP Pulse Ox 01/05/24 01:01 76 16 112/77 92 L 01/05/24 00:06 88 20 127/88 93 L 01/04/24 23:00 87 18 145/99 99 01/04/24 22:47 70 18 115/96 98 01/04/24 22:07 80 20 129/86 96 01/04/24 22:02 77 20 117/77 95 01/04/24 21:23 80 18 120/83 96 01/04/24 20:27 82 18 100/73 96 01/04/24 17:19 98.5 F 68 18 135/110 98 Intake and Output 01/04/24 01/04/24 01/05/24 14:59 22:59 06:59 Other: Weight 77.111 kg Results CBC & Chem 7: 01/04/24 17:28 01/04/24 17:28 Labs: Abnormal Lab Results - Last 24 Hours (Table) 01/04/24 01/04/24 Range/Units 17:28 17:28 WBC 3.1 L (3.8-10.6) k/uL RBC 3.70 L (3.80-5.40) m/uL RDW 16.1 H (11.5-15.5) % Lymphocytes # 0.8 L (1.0-4.8) k/uL AST 296 H (14-36) U/L ALT 208 H (4-34) U/L Serum Alcohol 292 H* mg/dL
[2024-01-05 07:28] LABS: HCT 34.9 % (34.0-46.0); HGB 12.1 gm/dL (11.4-16.0); MCH 34.8 pg (25.0-35.0); MCHC 34.5 g/dL (31.0-37.0); MCV 100.7 fL (80.0-100.0); Macrocytosis Slight; Mean Platelet Volume 9.1; Platelet Count 169 k/uL (150-450); RBC 3.47 m/uL (3.80-5.40); WBC 3.2 k/uL (3.8-10.6)
[2024-01-05 08:01] LABS: ALT 202 U/L (4-34); AST 289 U/L (14-36); African American GFR (CKD) >90 (>60 ml/min/1.73 sqM); Albumin 4.1 g/dL (3.5-5.0); Albumin/Globulin Ratio 1.6; Alkaline Phosphatase 48 U/L (38-126); Anion Gap 12 mmol/L; Blood Urea Nitrogen 10 mg/dL (7-17); Calcium 8.7 mg/dL (8.4-10.2); Carbon Dioxide 23 mmol/L (22-30); Chloride 107 mmol/L (98-107); Globulin 2.5 g/dL; Glucose 97 mg/dL (74-99); Magnesium 1.6 mg/dL (1.6-2.3); Non-African American GFR(CKD) >90 (>60 ml/min/1.73 sqM); Potassium 3.5 mmol/L (3.5-5.1); Sodium 142 mmol/L (137-145); Total Bilirubin 0.4 mg/dL (0.2-1.3); Total Protein 6.6 g/dL (6.3-8.2)
[2024-01-05] MEDS: chlordiazePOXIDE 25 MG CAP PO SCH (08:33)
[2024-01-05] MEDS: THIAMINE 100 MG TAB PO SCH (08:33)
[2024-01-05] MEDS: LORazepam 2 MG/ML INJ IV PRN (12:09)
--- NOTE | 2024-01-05 14:48 | P.PN ---
Subjective Progress Note Date: 01/05/24 Hospital Course: 83-year-old female with history of alcohol dependence, hypothyroidism, depression/anxiety, bipolar disorder presenting after alcohol intoxication. Her last drink was yesterday. She drinks about 1 pint of vodka per day. Initial laboratory workup showed WBC 3.1, BMP, AST 296, ALT 208, serum alcohol 292. Patient started on IV fluids. Being monitored for alcohol withdrawal. Subjective: Patient seen and examined at bedside. No acute events overnight. Pertinent positives and negatives as discussed above, a complete review of systems was performed and all other systems are negative. Vitals Signs Reviewed. General: Nontoxic, no distress, appears at stated age Derm: Warm, dry Head: Atraumatic, normocephalic, symmetric Eyes: EOMI, no lid lag, anicteric sclera Mouth: No lip lesion, mucus membranes moist Cardiovascular: S1S2 reg, no murmur Lungs: CTA bilateral, no rhonchi, no rales, no accessory muscle use Abdominal: Soft, nontender to palpation, no guarding, no appreciable organomegaly Ext: No gross muscle atrophy, no edema, no contractures Neuro: CN II-XI grossly intact, no focal neuro deficits, extension tremor Psych: Alert, oriented, appropriate affect Data Reviewed Today: Pertinent Labs: WBC 3.2, hemoglobin 12.1, platelet 169, potassium 3.5, creatinine 0.65, AST 289, ALT 208 Imaging: No new imaging Assessment and Plan: Acute alcohol intoxication Alcohol dependence with impending alcohol withdrawal On Librium 50 3 times daily, continue to taper Ativan IV as needed per CIWA score, monitor for sedation Continue normal saline at 75 cc an hour Thiamine oral 100 mg daily Hypothyroidism Bipolar disorder GERD Hypertension Home medications reconciled and continued DVT ppx: Lovenox Code status: Full code Anticipated discharge place: Pending clinical course Anticipated discharge time: Pending clinical course Objective - Vital Signs Vital signs: Vital Signs Temp 98.5 F 01/04/24 17:19 Pulse 85 01/05/24 12:00 Resp 18 01/05/24 12:00 BP 112/80 01/05/24 11:00 Pulse Ox 92 L 01/05/24 12:00 FiO2 Intake & Output 01/04/24 01/05/24 01/05/24 18:59 06:59 18:59 Weight 77.111 kg - Labs CBC & Chem 7: 01/05/24 07:08 01/05/24 07:08 Labs: Abnormal Lab Results - Last 24 Hours (Table) 01/04/24 01/04/24 01/05/24 Range/Units 17:28 17:28 07:08 WBC 3.1 L 3.2 L (3.8-10.6) k/uL RBC 3.70 L 3.47 L (3.80-5.40) m/uL MCV 100.7 H (80.0-100.0) fL RDW 16.1 H 16.0 H (11.5-15.5) % Lymphocytes # 0.8 L (1.0-4.8) k/uL AST 296 H (14-36) U/L ALT 208 H (4-34) U/L Serum Alcohol 292 H* mg/dL 01/05/24 Range/Units 07:08 WBC (3.8-10.6) k/uL RBC (3.80-5.40) m/uL MCV (80.0-100.0) fL RDW (11.5-15.5) % Lymphocytes # (1.0-4.8) k/uL AST 289 H (14-36) U/L ALT 202 H (4-34) U/L Serum Alcohol mg/dL
[2024-01-05 17:49] LABS: Acetaminophen <10.0 ug/mL; Salicylate <1.0 mg/dL
[2024-01-05] MEDS: FOLIC ACID 1 MG TAB PO SCH (18:34)
[2024-01-05] MEDS: MULTIVITAMINS, THERA 1 EACH TAB PO SCH (18:34)
[2024-01-05] MEDS: METOPROLOL TARTRATE 12.5 MG TAB PO SCH (21:21)
[2024-01-05] MEDS: traZODone HCL 100 MG TAB PO SCH (21:21)
[2024-01-06] MEDS: ACETAMINOPHEN TAB 325 MG TAB PO PRN (04:30)
[2024-01-06] MEDS: LEVOTHYROXINE 75 MCG TAB PO SCH (04:30)
[2024-01-06 09:10] LABS: ALT 170 U/L (8-44); AST 188 U/L (13-35); Albumin 3.8 g/dL (3.8-4.9); Alkaline Phosphatase 33 U/L (41-126); BUN/Creat Ratio 13.88 Ratio (12.00-20.00); Blood Urea Nitrogen 11.1 mg/dL (9.0-27.0); Calcium 8.3 mg/dL (8.7-10.3); Carbon Dioxide 24.2 mmol/L (21.6-31.8); Chloride 105 mmol/L (96-109); Glucose 89 mg/dL (70-110); Potassium 3.8 mmol/L (3.5-5.5); Sodium 141 mmol/L (135-145); Total Bilirubin 0.4 mg/dL (0.3-1.2); Total Protein 5.8 g/dL (6.2-8.2)
[2024-01-06 09:27] LABS: Basophils # (A) 0.04 X 10*3/uL (0.00-0.10); Basophils % (A) 1.4 %; Eosinophils # (A) 0.08 X 10*3/uL (0.04-0.35); Eosinophils % (A) 2.9 %; HCT 31.5 % (37.2-46.3); HGB 10.4 g/dL (12.0-15.0); Lymphocytes # (A) 0.77 X 10*3/uL (0.90-5.00); Lymphocytes % (A) 27.9 %; MCH 32.4 pg (27.0-32.0); MCV 98.1 FL (80.0-97.0); Mean Platelet Volume 10.8 FL (9.5-12.2); Monocytes # (A) 0.37 X 10*3/uL (0.20-1.00); Monocytes % (A) 13.4 %; NRBC Per 100 WBC 0 X 10*3/uL (0.00-0.01); Neutrophils # (A) 1.46 X 10*3/uL (1.80-7.70); Platelet Count 183 X 10*3/uL (140-440); RBC 3.21 X 10*6/uL (4.10-5.20); RDW 16.4 % (11.5-14.5); WBC 2.76 X 10*3/uL (4.50-10.00)
[2024-01-06] MEDS: ENOXAPARIN 40 MG/0.4 ML SYRINGE SQ SCH (09:29)
[2024-01-06] MEDS: ESCITALOPRAM 20 MG TAB PO SCH (09:30)
[2024-01-06] MEDS: lamoTRIgine 100 MG TAB PO SCH (09:30)
[2024-01-06] MEDS: chlordiazePOXIDE 25 MG CAP PO SCH (09:30)
[2024-01-06 12:08] LABS: Glucose,Whole Blood 96 mg/dL (70-110)
--- NOTE | 2024-01-06 13:18 | P.PN ---
Subjective Progress Note Date: 01/06/24 Hospital Course: 83-year-old female with history of alcohol dependence, hypothyroidism, depression/anxiety, bipolar disorder presenting after alcohol intoxication. Her last drink was yesterday. She drinks about 1 pint of vodka per day. She was also drinking a bottle of hand flour broker due to cost. Initial laboratory workup showed WBC 3.1, BMP, AST 296, ALT 208, serum alcohol 292. Patient started on IV fluids. Being monitored for alcohol withdrawal. Poison control also contacted. Psychiatry consulted for potential intentional overdose and flour broker. Sitter at bedside. Subjective: Patient seen and examined at bedside. No acute events overnight. Pertinent positives and negatives as discussed above, a complete review of systems was performed and all other systems are negative. Vitals Signs Reviewed. General: Nontoxic, no distress, appears at stated age Derm: Warm, dry Head: Atraumatic, normocephalic, symmetric Eyes: EOMI, no lid lag, anicteric sclera Mouth: No lip lesion, mucus membranes moist Cardiovascular: S1S2 reg, no murmur Lungs: CTA bilateral, no rhonchi, no rales, no accessory muscle use Abdominal: Soft, nontender to palpation, no guarding, no appreciable organome portia Ext: No gross muscle atrophy, no edema, no contractures Neuro: CN II-XI grossly intact, no focal neuro deficits, extension tremor Psych: Alert, oriented, appropriate affect Data Reviewed Today: Pertinent Labs: WBC 2.76, hemoglobin 10.4, potassium 3.8, creatinine 0.8, AST 188, ALT 170 Tylenol and salicylate level negative. Imaging: No new imaging Assessment and Plan: Acute alcohol intoxication, including and flour broker Alcohol dependence with impending alcohol withdrawal On Librium 25 3 times daily, continue to taper Ativan IV as needed per CIWA score, monitor for sedation Continue normal saline at 75 cc an hour Thiamine oral 100 mg daily Also on folic acid 1 mg daily and multivitamins Potential intentional overdose Sitter at bedside Psychiatric evaluation Hypothyroidism Bipolar disorder GERD Hypertension Home medications reconciled and continued DVT ppx: Lovenox Code status: Full code Anticipated discharge place: Pending clinical course Anticipated discharge time: Pending clinical course Objective - Vital Signs Vital signs: Vital Signs Temp 98.6 F 01/06/24 13:06 Pulse 52 L 01/06/24 13:06 Resp 20 01/06/24 13:06 BP 111/72 01/06/24 13:06 Pulse Ox 95 01/06/24 13:06 FiO2 Intake & Output 01/05/24 01/06/24 01/06/24 18:59 06:59 18:59 Intake Total 590 Balance 590 Weight 77.111 kg Intake: Oral 590 Other: Voiding Method Toilet Toilet # Voids 1 0 # Bowel Movements 0 - Labs CBC & Chem 7: 01/06/24 06:15 01/06/24 06:15 Labs: Abnormal Lab Results - Last 24 Hours (Table) 01/06/24 01/06/24 Range/Units 06:15 06:15 WBC 2.76 L (4.50-10.00) X 10*3/uL RBC 3.21 L (4.10-5.20) X 10*6/uL Hgb 10.4 L (12.0-15.0) g/dL Hct 31.5 L (37.2-46.3) % MCV 98.1 H (80.0-97.0) FL MCH 32.4 H (27.0-32.0) pg RDW 16.4 H (11.5-14.5) % Neutrophils # 1.46 L (1.80-7.70) X 10*3/uL Lymphocytes # 0.77 L (0.90-5.00) X 10*3/uL Calcium 8.3 L (8.7-10.3) mg/dL AST 188 H (13-35) U/L ALT 170 H (8-44) U/L Alkaline Phosphatase 33 L (41-126) U/L Total Protein 5.8 L (6.2-8.2) g/dL
--- NOTE | 2024-01-06 14:05 | P.CN ---
Psychiatric Consult - . Consult date: 01/06/24 Consult:: 01/06/24 14:04 patient was seen by NATALI Rock and discussed the case and plan with him, please refer to his note for further details and recommendations.
[2024-01-07 09:53] LABS: ALT 123 U/L (8-44); AST 111 U/L (13-35); Albumin 3.6 g/dL (3.8-4.9); Albumin/Globulin Ratio 1.71 Ratio (1.60-3.17); Alkaline Phosphatase 33 U/L (41-126); BUN/Creat Ratio 12.71 Ratio (12.00-20.00); Blood Urea Nitrogen 8.9 mg/dL (9.0-27.0); Calcium 8.7 mg/dL (8.7-10.3); Carbon Dioxide 25.1 mmol/L (21.6-31.8); Chloride 106 mmol/L (96-109); Globulin 2.1 g/dL (1.6-3.3); Glucose 90 mg/dL (70-110); Potassium 3.8 mmol/L (3.5-5.5); Sodium 140 mmol/L (135-145); Total Bilirubin 0.5 mg/dL (0.3-1.2); Total Protein 5.7 g/dL (6.2-8.2)
[2024-01-07 09:55] LABS: Basophils # (A) 0.03 X 10*3/uL (0.00-0.10); Basophils % (A) 1.1 %; Eosinophils # (A) 0.14 X 10*3/uL (0.04-0.35); HCT 32.3 % (37.2-46.3); HGB 10.9 g/dL (12.0-15.0); Lymphocytes # (A) 0.59 X 10*3/uL (0.90-5.00); Lymphocytes % (A) 21.1 %; MCH 32.9 pg (27.0-32.0); MCHC 33.7 g/dL (32.0-37.0); MCV 97.6 FL (80.0-97.0); Mean Platelet Volume 10.8 FL (9.5-12.2); Monocytes # (A) 0.36 X 10*3/uL (0.20-1.00); Monocytes % (A) 12.9 %; NRBC Per 100 WBC 0 X 10*3/uL (0.00-0.01); Neutrophils # (A) 1.64 X 10*3/uL (1.80-7.70); Neutrophils % (A) 58.8 %; Platelet Count 194 X 10*3/uL (140-440); RBC 3.31 X 10*6/uL (4.10-5.20); RDW 15.8 % (11.5-14.5); WBC 2.79 X 10*3/uL (4.50-10.00)
--- NOTE | 2024-01-07 14:27 | P.PN ---
Subjective Progress Note Date: 01/07/24 Hospital Course: 83-year-old female with history of alcohol dependence, hypothyroidism, depression/anxiety, bipolar disorder presenting after alcohol intoxication. Her last drink was yesterday. She drinks about 1 pint of vodka per day. 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 Initial laboratory workup showed WBC 3.1, BMP, AST 296, ALT 208, serum alcohol 292. Patient started on IV fluids. Being monitored for alcohol withdrawal. Poison control also contacted. Psychiatry consulted for potential intentional overdose and survey worker. Sitter at bedside. Subjective: Patient seen and examined at bedside. No acute events overnight. Pertinent positives and negatives as discussed above, a complete review of systems was performed and all other systems are negative. Vitals Signs Reviewed. General: Nontoxic, no distress, appears at stated age Derm: Warm, dry Head: Atraumatic, normocephalic, symmetric Eyes: EOMI, no lid lag, anicteric sclera Mouth: No lip lesion, mucus membranes moist Cardiovascular: S1S2 reg, no murmur Lungs: CTA bilateral, no rhonchi, no rales, no accessory muscle use Abdominal: Soft, nontender to palpation, no guarding, no appreciable organome portia Ext: No gross muscle atrophy, no edema, no contractures Neuro: CN II-XI grossly intact, no focal neuro deficits, extension tremor Psych: Alert, oriented, appropriate affect Data Reviewed Today: Pertinent Labs: WBC 2.79, hemoglobin 10.9, platelet 194, creatinine 0.7, AST 111, ALT 123 Imaging: No new imaging Assessment and Plan: Acute alcohol intoxication, including and survey worker Alcohol dependence with impending alcohol withdrawal On Librium 10 3 times daily, continue to taper Ativan IV as needed per CIWA score, monitor for sedation Continue normal saline at 75 cc an hour Thiamine oral 100 mg daily Also on folic acid 1 mg daily and multivitamins Potential intentional overdose Sitter at bedside Psychiatric evaluation, may be going to inpatient psych Hypothyroidism Bipolar disorder GERD Hypertension Home medications reconciled and continued DVT ppx: Lovenox Code status: Full code Anticipated discharge place: Pending clinical course Anticipated discharge time: Pending clinical course Objective - Vital Signs Vital signs: Vital Signs Temp 98.7 F 01/07/24 12:55 Pulse 59 L 01/07/24 12:55 Resp 18 01/07/24 12:55 BP 119/79 01/07/24 12:55 Pulse Ox 92 L 01/07/24 12:55 FiO2 Intake & Output 01/06/24 01/07/24 01/07/24 18:59 06:59 18:59 Intake Total 900 Balance 900 Intake: Intake, IV Titration 900 Amount Sodium Chloride 0.9% 1, 900 000 ml @ 75 mls/hr IV . [id number] STORMY Rx#:[id number] Oral 0 Other: Voiding Method Toilet Toilet # Voids 0 2 # Bowel Movements 0 - Labs CBC & Chem 7: 01/07/24 06:43 01/07/24 06:43 Labs: Abnormal Lab Results - Last 24 Hours (Table) 01/07/24 01/07/24 Range/Units 06:43 06:43 WBC 2.79 L (4.50-10.00) X 10*3/uL RBC 3.31 L (4.10-5.20) X 10*6/uL Hgb 10.9 L (12.0-15.0) g/dL Hct 32.3 L (37.2-46.3) % MCV 97.6 H (80.0-97.0) FL MCH 32.9 H (27.0-32.0) pg RDW 15.8 H (11.5-14.5) % Neutrophils # 1.64 L (1.80-7.70) X 10*3/uL Lymphocytes # 0.59 L (0.90-5.00) X 10*3/uL BUN 8.9 L (9.0-27.0) mg/dL AST 111 H (13-35) U/L ALT 123 H (8-44) U/L Alkaline Phosphatase 33 L (41-126) U/L Total Protein 5.7 L (6.2-8.2) g/dL Albumin 3.6 L (3.8-4.9) g/dL
--- NOTE | 2024-01-08 12:35 | P.DS ---
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 Her last drink was yesterday. She drinks about 1 pint of vodka per day. She was also drinking a bottle of hand broomcorn grader due to cost. Initial laboratory workup showed WBC 3.1, BMP, AST 296, ALT 208, serum alcohol 292. Patient started on IV fluids. Being monitored for alcohol withdrawal. Poison control also contacted. Psychiatry consulted for potential intentional overdose and broomcorn grader. Sitter at bedside. Patient is medically stabilized for discharge. Being discharged to inpatient psychiatry. Patient seen and examined at bedside. Vital signs reviewed and stable. General: Nontoxic, no distress, appears at stated age Derm: Warm, dry Head: Atraumatic, normocephalic, symmetric Eyes: EOMI, no lid lag, anicteric sclera Mouth: No lip lesion, mucus membranes moist Cardiovascular: S1S2 reg, no murmur Lungs: CTA bilateral, no rhonchi, no rales, no accessory muscle use Abdominal: Soft, nontender to palpation, no guarding, no appreciable organomegaly Ext: No gross muscle atrophy, no edema, no contractures Neuro: CN II-XI grossly intact, no focal neuro deficits Psych: Alert, oriented, appropriate affect A total of 33 minutes of time were spent preparing this complex discharge summary. Patient was discharged on 02/04/2024 at 1233. Patient Condition at Discharge: Stable Plan - Discharge Summary Discharge Rx Participant: No New Discharge Prescriptions: New chlordiazePOXIDE HCl [Librium] 10 mg PO TID cap Multivitamins, Thera [Multivitamin (formulary)] 1 each PO DAILY tab Folic Acid 1 mg PO DAILY tab Thiamine [Vitamin B-1] 100 mg PO DAILY tab Continue lamoTRIgine [LaMICtal] 100 mg PO DAILY 30 Days #30 tab Escitalopram [Lexapro] 20 mg PO DAILY 30 Days #30 tab Levothyroxine Sodium [Synthroid] 150 mcg PO DAILY 30 Days #30 tab Metoprolol Tartrate [Lopressor] 12.5 mg PO BID Pantoprazole [Protonix] 40 mg PO AC-BID #60 tab traZODone HCL 150 mg PO HS 30 Days #30 tablet Discontinued Acamprosate Calcium [Campral] 666 mg PO TID 30 Days #120 tab Thiamine [Vitamin B-1] 100 mg PO BID #60 tab Fexofenadine HCl [Debbi Allergy] 180 mg PO DAILY PRN PRN Reason: Allergy Symptoms Discharge Medication List Escitalopram [Lexapro] 20 mg PO DAILY 30 Days #30 tab 10/06/23 [Rx] Levothyroxine Sodium [Synthroid] 150 mcg PO DAILY 30 Days #30 tab 10/06/23 [Rx] lamoTRIgine [LaMICtal] 100 mg PO DAILY 30 Days #30 tab 10/06/23 [Rx] traZODone HCL 150 mg PO HS 30 Days #30 tablet 10/06/23 [Rx] Metoprolol Tartrate [Lopressor] 12.5 mg PO BID 11/18/23 [History] Pantoprazole [Protonix] 40 mg PO AC-BID #60 tab 12/29/23 [Rx] Folic Acid 1 mg PO DAILY tab 01/08/24 [Rx] Multivitamins, Thera [Multivitamin (formulary)] 1 each PO DAILY tab 01/08/24 [Rx] Thiamine [Vitamin B-1] 100 mg PO DAILY tab 01/08/24 [Rx] chlordiazePOXIDE HCl [Librium] 10 mg PO TID cap 01/08/24 [Rx] Follow up Appointment(s)/Referral(s): [facility] [Primary Care Provider] - 1-2 days Discharge Disposition: TRANSFER TO PSYCH HOSP/UNIT
[2024-01-08] MEDS: TRIAMCINOLONE 0.1% CREAM 80 GM TUBE TOPICAL SCH (23:49)
[2024-01-09 09:44] VITALS: BP 140/83; PULSE 56; RESP 16; TEMP 97.9
--- NOTE | 2024-01-09 10:27 | P.DS ---
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 Her last drink was yesterday. She drinks about 1 pint of vodka per day. She was also drinking a bottle of hand marketing program coordinator due to cost. Initial laboratory workup showed WBC 3.1, BMP, AST 296, ALT 208, serum alcohol 292. Patient started on IV fluids. Being monitored for alcohol withdrawal. Poison control also contacted. Psychiatry consulted for potential intentional overdose and marketing program coordinator. Sitter at bedside. Patient is medically stabilized for discharge. Being discharged to inpatient psychiatry at [facility]. Patient seen and examined at bedside. Vital signs reviewed and stable. General: Nontoxic, no distress, appears at stated age Derm: Warm, dry Head: Atraumatic, normocephalic, symmetric Eyes: EOMI, no lid lag, anicteric sclera Mouth: No lip lesion, mucus membranes moist Cardiovascular: S1S2 reg, no murmur Lungs: CTA bilateral, no rhonchi, no rales, no accessory muscle use Abdominal: Soft, nontender to palpation, no guarding, no appreciable organomegaly Ext: No gross muscle atrophy, no edema, no contractures Neuro: CN II-XI grossly intact, no focal neuro deficits Psych: Alert, oriented, appropriate affect A total of 33 minutes of time were spent preparing this complex discharge summary. Patient was discharged on 01/09/24 at 1026. Patient Condition at Discharge: Stable Plan - Discharge Summary Discharge Rx Participant: No New Discharge Prescriptions: New Multivitamins, Thera [Multivitamin (formulary)] 1 each PO DAILY tab Folic Acid 1 mg PO DAILY tab Thiamine [Vitamin B-1] 100 mg PO DAILY tab Continue lamoTRIgine [LaMICtal] 100 mg PO DAILY 30 Days #30 tab Escitalopram [Lexapro] 20 mg PO DAILY 30 Days #30 tab Levothyroxine Sodium [Synthroid] 150 mcg PO DAILY 30 Days #30 tab Metoprolol Tartrate [Lopressor] 12.5 mg PO BID Pantoprazole [Protonix] 40 mg PO AC-BID #60 tab traZODone HCL 150 mg PO HS 30 Days #30 tablet Discontinued Acamprosate Calcium [Campral] 666 mg PO TID 30 Days #120 tab Thiamine [Vitamin B-1] 100 mg PO BID #60 tab Fexofenadine HCl [Debbi Allergy] 180 mg PO DAILY PRN PRN Reason: Allergy Symptoms Discharge Medication List Escitalopram [Lexapro] 20 mg PO DAILY 30 Days #30 tab 10/06/23 [Rx] Levothyroxine Sodium [Synthroid] 150 mcg PO DAILY 30 Days #30 tab 10/06/23 [Rx] lamoTRIgine [LaMICtal] 100 mg PO DAILY 30 Days #30 tab 10/06/23 [Rx] traZODone HCL 150 mg PO HS 30 Days #30 tablet 10/06/23 [Rx] Metoprolol Tartrate [Lopressor] 12.5 mg PO BID 11/18/23 [History] Pantoprazole [Protonix] 40 mg PO AC-BID #60 tab 12/29/23 [Rx] Folic Acid 1 mg PO DAILY tab 01/08/24 [Rx] Multivitamins, Thera [Multivitamin (formulary)] 1 each PO DAILY tab 01/08/24 [Rx] Thiamine [Vitamin B-1] 100 mg PO DAILY tab 01/08/24 [Rx] Follow up Appointment(s)/Referral(s): [facility] [Primary Care Provider] - 1-2 days Patient Instructions/Handouts: Alcohol Dependence (ED), Depression (DC) Discharge Disposition: TRANSFER TO PSYCH HOSP/UNIT
== END 2024-01-09 12:28 | DRG 812 ==
LOC: EC 17:09 → 5NMEDONC 20:51
PROVIDERS: ADMIT Internal Medicine; ATTEND Internal Medicine
DX: T49.0X1A Poisoning by local antifungal, anti-infective and anti-inflammatory drugs, accidental (unintentional), initial encounter (principal); T51.0X1A Toxic effect of ethanol, accidental (unintentional), initial encounter; D72.819 Decreased white blood cell count, unspecified; E89.0 Postprocedural hypothyroidism; F10.229 Alcohol dependence with intoxication, unspecified; F10.231 Alcohol dependence with withdrawal delirium; F60.3 Borderline personality disorder; J30.2 Other seasonal allergic rhinitis; F31.9 Bipolar disorder, unspecified; I10 Essential (primary) hypertension; K21.9 Gastro-esophageal reflux disease without esophagitis; L40.9 Psoriasis, unspecified; R74.01 Elevation of levels of liver transaminase levels; Y90.8 Blood alcohol level of 240 mg/100 ml or more; F41.9 Anxiety disorder, unspecified; Z63.72 Alcoholism and drug addiction in family; Z79.890 Hormone replacement therapy; Z79.899 Other long term (current) drug therapy; Z81.1 Family history of alcohol abuse and dependence; Z80.0 Family history of malignant neoplasm of digestive organs; Z91.51 Personal history of suicidal behavior; Z28.311 Partially vaccinated for COVID-19; Z88.1 Allergy status to other antibiotic agents; Z88.8 Allergy status to other drugs, medicaments and biological substances
CPT/HCPCS: 36415; 80053; 80143; 80179; 80320; 83735; 85025; 85027; 87636; 93005; 96361; 96374; 96375; 96376; 99285

== ENCOUNTER 2024-01-22 19:23 | Inpatient (IN) | payer OTHER ==
--- NOTE | 2024-01-22 20:10 | ED ---
General Adult HPI - General Chief complaint: Psychiatric Symptoms Stated complaint: ETOH Time Seen by Provider: 01/22/24 19:29 Source: patient, EMS Mode of arrival: ambulatory - History of Present Illness Initial comments: Dictation was produced using [employer] dictation software. please excuse any grammatical, word or spelling errors. Chief Complaint: 63-year-old alcoholic female presents with fall being found down History of Present Illness: Patient 63-year-old female she was found down. She is brought in by EMS. Patient drinks daily. She states that she drinks at least a pint of hard liquor daily. She does not remember falling. She is found to ground. Patient was found to have a laceration to her posterior head. Patient states that she was suicidal. She is also reporting that she is sick and tired of being an alcoholic and is motivated to quit alcohol. She states that she has had significant alcohol withdrawals in the past and try to quit The ROS documented in this emergency department record has been reviewed and confirmed by me. Those systems with pertinent positive or negative responses have been documented in the HPI. All other systems are other negative and/or noncontributory. - Related Data Home Medications Medication Instructions Recorded Confirmed Metoprolol Tartrate [Lopressor] 12.5 mg PO BID 11/18/23 01/23/24 Multivitamins, Thera [Multivitamin 1 cap PO DAILY 01/23/24 01/23/24 (formulary)] Previous Rx's Medication Instructions Recorded Escitalopram [Lexapro] 20 mg PO DAILY 30 Days #30 tab 10/06/23 Levothyroxine Sodium [Synthroid] 150 mcg PO DAILY 30 Days #30 tab 10/06/23 lamoTRIgine [LaMICtal] 100 mg PO DAILY 30 Days #30 tab 10/06/23 traZODone HCL 150 mg PO HS 30 Days #30 tablet 10/06/23 Pantoprazole [Protonix] 40 mg PO AC-BID #60 tab 12/29/23 Folic Acid 1 mg PO DAILY tab 01/08/24 Thiamine [Vitamin B-1] 100 mg PO DAILY tab 01/08/24 Allergies Allergy/AdvReac Type Severity Reaction Status Date / Time clindamycin Allergy Unknown Rash/Hives Verified 01/23/24 08:40 acetylcysteine AdvReac Anaphylaxis Verified 01/23/24 08:40 [From Mucomyst] citalopram [From Celexa] AdvReac Hallucinati Verified 01/23/24 08:40 ons diphenhydramine HCl AdvReac Rapid Verified 01/23/24 08:40 [From Benadryl] Heart Rate Review of Systems ROS Statement: Those systems with pertinent positive or pertinent negative responses have been documented in the HPI. ROS Other: All systems not noted in ROS Statement are negative. Past Medical History Past Medical History: Asthma, Cancer, Hypertension, Thyroid Disorder Additional Past Medical History / Comment(s): History of goiter status post thyroidectomy, questionable history of thyroid cancer although this is not clear, bipolar disorder, depression, history of suicidal ideations, history of drug overdose, alcoholism, seasonal rhinitis, psoriasis, breast cysts, history of broken toes in the right foot, History of Any Multi-Drug Resistant Organisms: None Reported Past Surgical History: No Surgical Hx Reported Additional Past Surgical History / Comment(s): Thyroidectomy 1999, SKIN NEVI REMOVED Past Anesthesia/Blood Transfusion Reactions: Previous Problems w/ Anesthesia, Postoperative Nausea & Vomiting (PONV) Additional Past Anesthesia/Blood Transfusion Reaction / Comment(s): Lives in a house with two roommates. ETOH. Pt no longer has a drivers license- she has had 2 DUI's. 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 She is seen at [facility]. Past Psychological History: Anxiety, Bipolar, Depression Smoking Status: Never smoker Past Alcohol Use History: Abuse, Daily, Heavy Past Drug Use History: None Reported - Past Family History Father Family Medical History: Cancer Additional Family Medical History / Comment(s): Father at age 64 of esophageal cancer. Father was an alcoholic and had cirrhosis of the liver. Mother Family Medical History: Cancer Additional Family Medical History / Comment(s): Mother of breast cancer at age 42yrs. General Exam - General Exam Comments Initial Comments: PHYSICAL EXAM: General Impression: Alert and oriented x3, not in acute distress HEENT: superficial abrasion to the occiput, extra-ocular movements intact, pupils equal and reactive to light bilaterally, mucous membranes moist. Cardiovascular: Heart regular rate and rhythm Chest: Able to complete full sentences, no retractions, no tachypnea Abdomen: abdomen soft, non-tender, non-distended, no organomegaly Musculoskeletal: Pulses present and equal in all extremities, no peripheral edema Motor: no focal deficits noted Neurological: CN II-XII grossly intact, no focal motor or sensory deficits noted Skin: Intact with no visualized rashes Psych: Normal affect and mood Course Vital Signs 01/22/24 01/22/24 19:30 21:57 Temperature 97.5 F L Pulse Rate 56 L 82 Respiratory 19 Rate Blood Pressure 140/87 112/80 O2 Sat by Pulse 95 94 L Oximetry EKG Findings - EKG Comments: EKG Findings:: My EKG interpretation: Ventricular rate 52, sinus bradycardia,. 166, cures 97, QTc 424. No MA prolongation, no QTC prolongation, no ST or T-wave changes noted. Overall, this EKG is unremarkable Medical Decision Making - Medical Decision Making Was pt. sent in by a medical professional or institution ([facility], LEGAL RESEARCHER, urgent care, hospital, or fdc...) When possible be specific @ -No Did you speak to anyone other than the patient for history (EMS, parent, family, police, friend...)? What history was obtained from this source @ -Some history obtained by EMS as discussed above Did you review nursing and triage notes (agree or disagree)? Why? @ -I reviewed and agree with nursing and triage notes Were old charts reviewed (outside hosp., previous admission, EMS record, old EKG, old radiological studies, urgent care reports/EKG's, fdc records)? Report findings @ -No old charts were reviewed Differential Diagnosis (chest pain, altered mental status, abdominal pain women, abdominal pain men, vaginal bleeding, musculoskeletal, weakness, fever, dyspnea, syncope, headache, dizziness, GI bleed, back pain, seizure, CVA, palpatations, mental health)? @ -Not applicable EKG interpreted by me (3pts min.). @ -None done X-rays interpreted by me (1pt min.). @ -Chest x-ray and pelvis x-ray shows no acute processes CT interpreted by me (1pt min.). @ -CT scan of the head and C-spine shows no acute processes U/S interpreted by me (1pt. min.). @ -None done What testing was considered but not performed or refused? (CT, X-rays, U/S, labs)? Why? @ -None What meds were considered but not given or refused? Why? @ -None Did you discuss the management of the patient with other professionals (professionals i.e. , PA, LEGAL RESEARCHER, lab, RT, psych nurse, social service assistant, swimming pool attendant, teacher, chief executive officer, supervisor case loading)? Give summary @ -Case discussed with hospitalist for admission Was smoking cessation discussed for >3mins.? @ -No Was critical care preformed (if so, how long)? @ -No Were there social determinants of health that impacted care today? How? (Homelessness, low income, unemployed, alcoholism, drug addiction, tr ansportation, low edu. Level, literacy, decrease access to med. care, retirement, rehab)? @ -Alcoholism Was there de-escalation of care discussed even if they declined (Discuss DNR or withdrawal of care, Hospice)? DNR status @ -No What co-morbidities impacted this encounter? (DM, HTN, Smoking, COPD, CAD, Cancer, CVA, ARF, Chemo, Hep., AIDS, mental health diagnosis, sleep apnea, morbid obesity)? @ -None Was patient admitted / discharged? Hospital course, mention meds given and route, prescriptions, significant lab abnormalities, going to OR and other pertinent info. @ -63-year-old female presents to the emergency department for fall. Vital signs upon arrival are within acceptable limits. Patient inebriated. She is dependent on alcohol. She has reported history of severe withdrawals. Patient states that she is motivated to quit alcohol and would like to be admitted for treatment of alcohol withdrawal Undiagnosed new problem with uncertain prognosis? @ -No Drug Therapy requiring intensive monitoring for toxicity (Heparin, Nitro, Insulin, Cardizem)? @ -No Were any procedures done? @ -No Diagnosis/symptom? Acute, or Chronic, or Acute on Chronic? Uncomplicated (without systemic symptoms) or Complicated (systemic symptoms)? @ -Alcohol intoxication Side effects of treatment? @ -No Exacerbation, Progression, or Severe Exacerbation? @ -No Poses a threat to life or bodily function? How? (Chest pain, [place], [place], pneumonia, PE, COPD, DKA, ARF, appy, cholecystitis, CVA, Diverticulitis, Homicidal, Suicidal, threat to staff... and all critical care pts) @ -yes - Lab Data Result diagrams: 01/22/24 20:18 01/22/24 20:18 Lab Results 01/22/24 01/22/2401/21/24 Range/Units 20:18 20:18 20:18 WBC 4.5 (3.8-10.6) k/uL RBC 4.14 (3.80-5.40) m/uL Hgb 13.5 (11.4-16.0) gm/dL Hct 41.8 (34.0-46.0) % MCV 100.8 H (80.0-100.0) fL MCH 32.6 (25.0-35.0) pg MCHC 32.3 (31.0-37.0) g/dL RDW 15.6 H (11.5-15.5) % Plt Count 235 (150-450) k/uL MPV 8.6 Neutrophils % 55 % Lymphocytes % 33 % Monocytes % 7 % Eosinophils % 2 % Basophils % 1 % Neutrophils # 2.4 (1.3-7.7) k/uL Lymphocytes # 1.5 (1.0-4.8) k/uL Monocytes # 0.3 (0-1.0) k/uL Eosinophils # 0.1 (0-0.7) k/uL Basophils # 0.1 (0-0.2) k/uL Macrocytosis Slight PT 10.7 (10.0-12.5) sec INR 1.0 (<1.2) APTT 22.6 (22.0-30.0) sec Sodium 148 H (137-145) mmol/L Potassium 4.3 (3.5-5.1) mmol/L Chloride 108 H (98-107) mmol/L Carbon Dioxide 27 (22-30) mmol/L Anion Gap 13 mmol/L BUN 13 (7-17) mg/dL Creatinine 0.69 (0.52-1.04) mg/dL Est GFR (CKD-EPI)AfAm >90 (>60 ml/min/1.73 sqM) Est GFR (CKD-EPI)NonAf >90 (>60 ml/min/1.73 sqM) Glucose 94 (74-99) mg/dL Calcium 9.8 (8.4-10.2) mg/dL Creatine Kinase 215 H (30-135) U/L Serum Alcohol 396 H* mg/dL Disposition Clinical Impression: Alcohol intoxication Disposition: ADMITTED IP TO THIS HOSP Condition: Stable
[2024-01-22 20:33] LABS: Basophils # (A) 0.1 k/uL (0-0.2); Basophils % (A) 1 %; Eosinophils # (A) 0.1 k/uL (0-0.7); Eosinophils % (A) 2 %; HCT 41.8 % (34.0-46.0); HGB 13.5 gm/dL (11.4-16.0); Lymphocytes # (A) 1.5 k/uL (1.0-4.8); Lymphocytes % (A) 33 %; MCH 32.6 pg (25.0-35.0); MCHC 32.3 g/dL (31.0-37.0); MCV 100.8 fL (80.0-100.0); Macrocytosis Slight; Mean Platelet Volume 8.6; Monocytes # (A) 0.3 k/uL (0-1.0); Monocytes % (A) 7 %; Neutrophils # (A) 2.4 k/uL (1.3-7.7); Neutrophils % (A) 55 %; Platelet Count 235 k/uL (150-450); RBC 4.14 m/uL (3.80-5.40); RDW 15.6 % (11.5-15.5); WBC 4.5 k/uL (3.8-10.6)
[2024-01-22 20:48] LABS: Partial Thromboplastin Time 22.6 sec (22.0-30.0); Prothrombin Time 10.7 sec (10.0-12.5)
--- NOTE | 2024-01-22 20:50 | CT ---
EXAMINATION TYPE: CT brain cspine wo con CT DLP: 1463.4 mGycm, Automated exposure control for dose reduction was used. DATE OF EXAM: 01/22/2024 8:23 PM COMPARISON: 11/10/2016 CLINICAL INDICATION:Female, 63 years old with history of fall; Fall. TECHNIQUE: Brain: Multiple axial CT images of the brain were obtained without IV contrast. Cspine: Axial CT images from the skull base to the inferior aspect of T2 we obtained without intraven ous contrast. Coronal and sagittal reformatted images were also reviewed. FINDINGS: Brain: Extra-axial spaces: No abnormal extra-axial fluid collections. Ventricular system: Appear dilated in proportion to the degree of cerebral atrophy. Cerebral parenchyma: No increased attenuation to suggest acute intraparenchymal hemorrhage. The gra y-white matter interface appears maintained. Mild generalized brain atrophy. Scattered hypoattenuat ing areas are seen within the cerebral white matter, nonspecific but most often seen with chronic janis rovascular ischemic changes; mild in degree. Small focal low attenuation by the caudate head on the right, suggesting lacunar infarct. This is technically age indeterminate but favored to be chronic. Cerebellum: No acute abnormality. Mass effect: No evidence of mass effect or midline shift. Intracranial vasculature: Unremarkable Soft tissues: Normal. Visualized orbits: Orbital contents appear grossly intact. Calvarium/osseous structures: No evidence of calvarial fracture. Nasoseptal deviation towards the lef t with small osseous spur. Paranasal sinuses and mastoid air cells: Clear. MRI is more sensitive for detecting acute processes such as infarct, and may be considered if clinica lly warranted. Cervical spine: Fracture: None seen. Osseous structures, spinal canal/neural foramina: Osseous mineralization appears appropriate. Cranioc ervical junction is intact with mild/moderate degenerative changes of the atlantooccipital and anteri or atlantoaxial articulations. Mild/moderate multilevel degenerative disk disease and facet disease t hroughout the cervical spine. This appears most significant at the C5-C6 level where there is disc sp kane narrowing, posterior disc osteophyte complex and uncovertebral joint changes causing moderate spi nal canal and left foraminal stenosis, moderate right foraminal stenosis. Vertebral alignment: No traumatic malalignment. Preserved normal cervical lordosis. Neck soft tissues: No acute finding.. Other: Lung apices show mild subsegmental atelectatic changes with no acute infiltrate or pneumothora x. Calcified left upper lobe nodule, left hilar and mediastinal lymph nodes consistent with remote g ranulomatous disease. Difficult to measure precisely but the pulmonary trunk appears somewhat promine nt measuring up to about 2.9 cm, borderline enlarged which can be seen with pulmonary hypertension. IMPRESSION: CT head: 1. No evidence of acute intracranial hemorrhage, midline shift, or mass effect. 2. Mild atrophy, chronic ischemic white matter disease, lacunar infarct near the right caudate head. CT cervical spine: 1. No evidence of acute cervical spine fracture or traumatic malalignment. 2. Mild to moderate cervical spondylosis, most pronounced C5-C6 as described.
[2024-01-22 21:03] LABS: African American GFR (CKD) >90 (>60 ml/min/1.73 sqM); Anion Gap 13 mmol/L; Blood Urea Nitrogen 13 mg/dL (7-17); Calcium 9.8 mg/dL (8.4-10.2); Carbon Dioxide 27 mmol/L (22-30); Chloride 108 mmol/L (98-107); Creatine Kinase 215 U/L (30-135); Glucose 94 mg/dL (74-99); Non-African American GFR(CKD) >90 (>60 ml/min/1.73 sqM); Potassium 4.3 mmol/L (3.5-5.1); Sodium 148 mmol/L (137-145)
[2024-01-22] MEDS ORDERED: LORazepam 2 MG/ML INJ IV PRN ×2 (21:10)
--- NOTE | 2024-01-22 21:13 | XR ---
EXAM: XR chest 1V portable CLINICAL INDICATION:Female, 63 years old with history of fall; [facility] COMPARISON: 01/18/2023 chest xray and other prior studies TECHNIQUE: Chest single view. FINDINGS: Lines/tubes/devices: None. Cardiomediastinum: Cardiac silhouette appears upper normal in size. Stable mediastinal silhouette. Mildly tortuous aorta. Vasculature: No increased pulmonary vasculature. Lungs/pleura: Lung volumes are slightly low with minor bibasilar opacities likely on the basis of subsegmental atel ectasis. No acute infiltrate, pleural effusion, or pneumothorax. Faintly visualized is an approximate ly 3.6 cm fairly circumscribed masslike density at the right lung base overlying the hepatic shadow, corresponding to the previously described abnormality thought to represent either pleural based mass or focal diaphragmatic herniation containing liver. No new nodules or masses are suggested by this ex am. Bones/soft tissues: Bony thorax appears grossly intact as seen. Moderate degenerative changes of the shoulders and mild o f the thoracic spine. Regional soft tissues appear unremarkable. IMPRESSION: Limited portable chest done for trauma shows no acute intrathoracic abnormality.
[2024-01-22] MEDS ORDERED: NALOXONE 0.4 MG/ML 1 ML VIAL IV PRN (21:14)
--- NOTE | 2024-01-22 21:17 | XR ---
EXAMINATION TYPE: XR pelvis AP view DATE OF EXAM: 01/22/2024 8:50 PM CLINICAL INDICATION:Female, 63 years old with history of fall; [facility] COMPARISON: None TECHNIQUE: The pelvis was examined in a single projection. FINDINGS: Normal osseous mineralization. [id number] degenerative changes of the lower lumbar spine, SI marshal ints, hips. There is no evidence of fracture or dislocation. There is no soft tissue abnormality. No abnormal calcifications are present. Pelvic phleboliths are present. Bladder likely mildly distended . Vague opacity projecting over the pelvis suspected to be something extrinsic. IMPRESSION: No acute fracture or dislocation identified, on this single view of the pelvis.
[2024-01-22 21:24] LABS: Alcohol 396 mg/dL
[2024-01-22] MEDS: SODIUM CHLORIDE 0.9% 1,000 ML IV SCH (21:29)
[2024-01-22] MEDS: THIAMINE 100 MG/ML 2 ML VIAL IM STA (21:32)
[2024-01-22] MEDS ORDERED: LORazepam 1 MG TAB PO PRN (23:31)
[2024-01-22] MEDS ORDERED: LORazepam 0.5 MG TAB PO PRN (23:31)
--- NOTE | 2024-01-23 01:07 | P.HPIM ---
History of Present Illness H&P Date: 01/22/24 Chief Complaint: alcohol detox 63-year-old female with alcohol abuse hypothyroidism Patient was brought in here by EMS due to alcohol intoxication. Patient admits that she was drinking too much to the point that she was blacking out she does remember who called EMS she assumes is one of her roommates. She has been trying to quit alcohol, she is denying any headache changes in vision or hearing denies any chest pain or trouble breathing denies any nausea vomiting or ab dominal pain denies any GI bleeding Patient asks for help to quit alcohol and go through detox however currently she is denying any withdrawal symptoms. She also reports depression but denies any active suicidal ideation at this time or homicidal ideation. She is asking for help to optimize her mood and help her quit alcohol She denies any falls or head injury she denies any GI bleeding Patient denies tobacco smoking or illicit drugs she admits to heavy alcohol consumption review of systems Pertinent positives as noted in HPI. All other systems were reviewed and are negative on exam Constitutional: No acute distress, conversant, pleasant Eyes: Anicteric sclerae, moist conjunctiva, Pupils equal round reactive to light ENMT: NC/AT Oropharynx clear, no erythema, or exudates Neck: Supple, no masses, or JVD No carotid bruits No thyromegaly Lungs: Clear to auscultation Clear to percussion Normal respiratory effort, no accessory muscle use Cardiovascular: Heart regular in rate and rhythm, No murmurs, gallops, or rubs No peripheral edema Abdominal: Soft Nontender, no guarding, rebound or rigidity Abdomen moving with respiration Normoactive bowel sounds Extremities: No digital cyanosis No clubbing Pedal pulses intact and symmetrical Radial pulses intact and symmetrical No calf tenderness Psychiatric: Alert and oriented to person, place and time Neuro Muscles Strength 5/5 in all 4 extremities Sensation to light touch grossly present throughout Cranial nerves II-XII grossly intact Past Medical History Past Medical History: Asthma, Cancer, Hypertension, Thyroid Disorder Additional Past Medical History / Comment(s): History of goiter status post thyroidectomy, history of thyroid cancer, bipolar disorder, depression, history of suicidal ideations, history of drug overdose, alcoholism, seasonal rhinitis, psoriasis, breast cysts, history of broken toes in the right foot, History of Any Multi-Drug Resistant Organisms: None Reported Past Surgical History: No Surgical Hx Reported Additional Past Surgical History / Comment(s): Thyroidectomy 1999, SKIN NEVI REMOVED Past Anesthesia/Blood Transfusion Reactions: Previous Problems w/ Anesthesia, Postoperative Nausea & Vomiting (PONV) Additional Past Anesthesia/Blood Transfusion Reaction / Comment(s): Lives in a house with two roommates. ETOH. Pt no longer has a drivers license- she has had 2 DUI's. 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 She is seen at [facility]. Past Psychological History: Anxiety, Bipolar, Depression Additional Psychological History / Comment(s): . Smoking Status: Never smoker Past Alcohol Use History: Abuse, Daily, Heavy Additional Past Alcohol Use History / Comment(s): Pt agrees she is an alcoholic for greater than 20 years and comes from a family hx of abuse. Past Drug Use History: None Reported Additional Drug Use History / Comment(s): patient reports drinking 1-1.5 pints a day but is unsure how much she had to drink today. - Past Family History Father Family Medical History: Cancer Additional Family Medical History / Comment(s): Father at age 64 of esophageal cancer. Father was an alcoholic and had cirrhosis of the liver. Mother Family Medical History: Cancer Additional Family Medical History / Comment(s): Mother of breast cancer at age 42yrs. Medications and Allergies Home Medications Medication Instructions Recorded Confirmed Type Escitalopram [Lexapro] 20 mg PO DAILY 30 Days #30 tab 10/06/23 01/04/24 Rx Levothyroxine Sodium [Synthroid] 150 mcg PO DAILY 30 Days #30 tab 10/06/23 01/04/24 Rx lamoTRIgine [LaMICtal] 100 mg PO DAILY 30 Days #30 tab 10/06/23 01/04/24 Rx traZODone HCL 150 mg PO HS 30 Days #30 tablet 10/06/23 01/04/24 Rx Metoprolol Tartrate [Lopressor] 12.5 mg PO BID 11/18/23 01/04/24 History Pantoprazole [Protonix] 40 mg PO AC-BID #60 tab 12/29/23 01/04/24 Rx Folic Acid 1 mg PO DAILY tab 01/08/24 Rx Multivitamins, Thera [Multivitamin 1 each PO DAILY tab 01/08/24 Rx (formulary)] Thiamine [Vitamin B-1] 100 mg PO DAILY tab 01/08/24 Rx Allergies Allergy/AdvReac Type Severity Reaction Status Date / Time clindamycin Allergy Unknown Rash/Hives Verified 01/22/24 19:30 acetylcysteine AdvReac Anaphylaxis Verified 01/22/24 19:30 [From Mucomyst] citalopram [From Celexa] AdvReac Hallucinati Verified 01/22/24 19:30 ons diphenhydramine HCl AdvReac Rapid Verified 01/22/24 19:30 [From Benadryl] Heart Rate Physical Exam Vitals: Vital Signs Temp Pulse Pulse Resp BP BP Pulse Ox 01/22/24 22:10 97.5 F L 73 16 129/84 97 01/22/24 21:57 82 112/80 94 L 01/22/24 19:30 97.5 F L 56 L 19 140/87 95 Intake and Output 01/22/24 01/22/24 01/23/24 14:59 22:59 06:59 Other: Weight 68.039 kg Results CBC & Chem 7: 01/22/24 20:18 01/22/24 20:18 Labs: Abnormal Lab Results - Last 24 Hours (Table) 01/22/24 01/22/24 Range/Units 20:18 20:18 MCV 100.8 H (80.0-100.0) fL RDW 15.6 H (11.5-15.5) % Sodium 148 H (137-145) mmol/L Chloride 108 H (98-107) mmol/L Creatine Kinase 215 H (30-135) U/L Serum Alcohol 396 H* mg/dL Thrombosis Risk Factor Assmnt - Choose All That Apply Any of the Below Risk Factors Present?: Yes Each Factor Represents 1 point: Age 41-60 years Thrombosis Risk Factor Assessment Total Risk Factor Score: 1 Thrombosis Risk Factor Assessment Level: Low Risk Assessment and Plan Assessment: 63-year-old female with hypothyroid, heavy alcohol consumption dependence coming in due to alcohol intoxication I discussed case with ED doctor and accepted the admission for acute severe alcohol intoxication with potential for alcohol withdrawal due to patient planning to quit alcohol with anticipated length of stay more than 2 midnights Acute severe alcohol intoxication with pending alcohol withdrawal syndrome EtOH level 395 Benzos per CIWA scale Seizure precautions Monitor for alcohol withdrawal symptoms Thiamine daily IV fluid hydration normal saline 100 cc/h Depression Patient denies suicidal ideation Psych consult Hypothyroid Resume levothyroxine Hypertension Resume metoprolol home medications Verify home meds Blood work unremarkable white count 4.5 hemoglobin 13 Sodium 148 potassium 4.3 BUN 13 creatinine 0.69 Full code DVT prophylaxis heparin subcu 3 times daily
[2024-01-23] MEDS: METOPROLOL TARTRATE 12.5 MG TAB PO SCH (01:17)
[2024-01-23] MEDS: ONDANSETRON 4 MG/2 ML VIAL IVP PRN (04:21)
[2024-01-23] MEDS: LEVOTHYROXINE 75 MCG TAB PO SCH (05:52)
[2024-01-23] MEDS: LORazepam 2 MG/ML INJ IV PRN (05:56)
[2024-01-23] MEDS: IPRATROPIUM-ALBUTEROL 3 ML NEB INHALATION PRN (07:53)
[2024-01-23] MEDS: THIAMINE 100 MG TAB PO SCH (08:41)
[2024-01-23] MEDS: HEPARIN SODIUM,PORCINE 5,000 UNIT/ML 1 ML VIAL SQ SCH (08:41)
[2024-01-23] MEDS: PANTOPRAZOLE 40 MG TABLET PO SCH (08:42)
[2024-01-23] MEDS: lamoTRIgine 100 MG TAB PO SCH (10:52)
[2024-01-23] MEDS: ESCITALOPRAM 20 MG TAB PO SCH (10:52)
[2024-01-23] MEDS: IBUPROFEN 800 MG TAB PO PRN (11:50)
[2024-01-23 13:27] VITALS: BP 151/93; PULSE 74; RESP 19; TEMP 98.5
--- NOTE | 2024-01-23 14:44 | P.CN ---
Psychiatric Consult - . Consult date: 01/23/24 Consult:: 01/23/24 14:42 Discussed patient's case with psychiatric social worker supervisor Tank [place], including recommendations. Please refer to his note for further details. Patient has a chronic history of alcohol use disorder, several inpatient admissions for mayte lar complaints.
--- NOTE | 2024-01-23 15:30 | P.DS ---
Providers Date of admission: 01/22/24 21:15 Expected date of discharge: 01/23/24 Attending physician: Deb Moe MD Consults: 01/22/24 21:56 Consult Physician Routine Consulting Provider: Rahul Colón Consult Reason/Comments: depressed mood, substance abuse Do you want consulting provider notified?: Yes Primary care physician: [facility] Course: 63-year-old female with PMH of alcohol abuse, bipolar disorder, depression presents the ED after drinking too much and blacking out. She was recently hospitalized from 01/04-01/08 for alcohol intoxication and suicidal ideation, discharged to inpatient Psyc. She presents after 5 days on binge drinking. She reports depressed mood but no suicidal ideations. In the ED, she underwent extensive evaluation. BP 140/87, HR 56, RR 19, T 97.5F, 95% on RA. CBC, coag panel and BMP was done significant for MCV 100.8, sodium 148, chloride 108. CPK 215. Serum alcohol 396. Head and C-spine CT showed chronic ischemic white matter disease, lacunar infarct near the right caudate, mild to moderate cervical spondylosis. Patient was admitted for alcohol intoxication. 01/22 Patient was seen and examined. She is sleeping comfortably but when I woke her up she began having tremors. She denies any suicidal ideation but reports depressed mood and headache. BP 125/79 HR 90. Advised to quit drinking alcohol. Psyc evaluated, does not meet inpatient criteria. General: non toxic, no distress, appears at stated age Derm: warm, dry Head: atraumatic, normocephalic, symmetric Eyes: EOMI, no lid lag, anicteric sclera Mouth: no lip lesion, mucus membranes moist Cardiovascular: Good distal perfusion in all 4 extremities Lungs: Breathing comfortably, no accessory muscle use Ext: no gross muscle atrophy, no edema, no contractures Neuro: no focal neuro deficits Psych: Alert, oriented, appropriate affect Discharge Diagnosis: Alcohol intoxication Depressed mood Macrocytosis Hypernatremia Elevated CPK This complex discharge took 35 minutes to complete. Patient Condition at Discharge: Stable Plan - Discharge Summary Discharge Rx Participant: No New Discharge Prescriptions: Continue lamoTRIgine [LaMICtal] 100 mg PO DAILY 30 Days #30 tab Escitalopram [Lexapro] 20 mg PO DAILY 30 Days #30 tab Levothyroxine Sodium [Synthroid] 150 mcg PO DAILY 30 Days #30 tab Metoprolol Tartrate [Lopressor] 12.5 mg PO BID Pantoprazole [Protonix] 40 mg PO AC-BID #60 tab traZODone HCL 150 mg PO HS 30 Days #30 tablet Folic Acid 1 mg PO DAILY tab Thiamine [Vitamin B-1] 100 mg PO DAILY tab Multivitamins, Thera [Multivitamin (formulary)] 1 cap PO DAILY Discharge Medication List Escitalopram [Lexapro] 20 mg PO DAILY 30 Days #30 tab 10/06/23 [Rx] Levothyroxine Sodium [Synthroid] 150 mcg PO DAILY 30 Days #30 tab 10/06/23 [Rx] lamoTRIgine [LaMICtal] 100 mg PO DAILY 30 Days #30 tab 10/06/23 [Rx] traZODone HCL 150 mg PO HS 30 Days #30 tablet 10/06/23 [Rx] Metoprolol Tartrate [Lopressor] 12.5 mg PO BID 11/18/23 [History] Pantoprazole [Protonix] 40 mg PO AC-BID #60 tab 12/29/23 [Rx] Folic Acid 1 mg PO DAILY tab 01/08/24 [Rx] Thiamine [Vitamin B-1] 100 mg PO DAILY tab 01/08/24 [Rx] Multivitamins, Thera [Multivitamin (formulary)] 1 cap PO DAILY 01/23/24 [History] Follow up Appointment(s)/Referral(s): [facility] [Primary Care Provider] - 1-2 days Patient Instructions/Handouts: Seizure/Epilepsy Discharge Instructions & Follow-Up Discharge/Stand Alone Forms: AA Meetings [address] - [facility], AA Meetings [facility], Outpatient Counseling, In Substance Abuse Facilities Discharge Disposition: HOME SELF-CARE
[2024-01-23] MEDS ORDERED: traZODone HCL 100 MG TAB PO SCH (21:00)
== END 2024-01-23 16:10 | disposition home or self-care (01) | DRG 775 ==
LOC: EC 19:23 → 5NMEDONC 21:15
PROVIDERS: ADMIT Internal Medicine; ATTEND Internal Medicine
DX: F10.229 Alcohol dependence with intoxication, unspecified (principal); E87.0 Hyperosmolality and hypernatremia; F31.9 Bipolar disorder, unspecified; E89.0 Postprocedural hypothyroidism; D75.89 Other specified diseases of blood and blood-forming organs; S00.01XA Abrasion of scalp, initial encounter; M47.812 Spondylosis without myelopathy or radiculopathy, cervical region; R25.1 Tremor, unspecified; W19.XXXA Unspecified fall, initial encounter; Y90.8 Blood alcohol level of 240 mg/100 ml or more; Z79.899 Other long term (current) drug therapy; Z79.890 Hormone replacement therapy; Z88.1 Allergy status to other antibiotic agents; Z88.8 Allergy status to other drugs, medicaments and biological substances; Z85.850 Personal history of malignant neoplasm of thyroid; Z81.1 Family history of alcohol abuse and dependence
CPT/HCPCS: 36415; 70450; 71045; 72125; 72170; 80048; 80320; 82075; 82550; 85025; 85610; 85730; 93005; 94640; 96372; 99285

== ENCOUNTER 2024-01-27 14:44 | Observation (INO) | payer OTHER ==
--- NOTE | 2024-01-27 16:01 | ED ---
General Adult HPI - General Chief complaint: Alcohol Stated complaint: ETOH Time Seen by Provider: 01/27/24 14:47 Source: patient, EMS, RN notes reviewed, old records reviewed Mode of arrival: EMS Limitations: no limitations - History of Present Illness Initial comments: 63-year-old female presenting with acute alcohol intoxication. Patient was recently discharged from this institution. She had attempted to go to [place] today but had apparently had a significantly elevated alcohol level and required transport to the emergency department for evaluation. Her only complaint is mild headache. She does admit to consuming large volume of vodka. - Related Data Home Medications Medication Instructions Recorded Confirmed Metoprolol Tartrate [Lopressor] 12.5 mg PO BID 11/18/23 01/27/24 Multivitamins, Thera [Multivitamin 1 cap PO DAILY 01/23/24 01/27/24 (formulary)] Previous Rx's Medication Instructions Recorded Escitalopram [Lexapro] 20 mg PO DAILY 30 Days #30 tab 10/06/23 Levothyroxine Sodium [Synthroid] 150 mcg PO DAILY 30 Days #30 tab 10/06/23 lamoTRIgine [LaMICtal] 100 mg PO DAILY 30 Days #30 tab 10/06/23 traZODone HCL 150 mg PO HS 30 Days #30 tablet 10/06/23 Pantoprazole [Protonix] 40 mg PO AC-BID #60 tab 12/29/23 Folic Acid 1 mg PO DAILY tab 01/08/24 Thiamine [Vitamin B-1] 100 mg PO DAILY tab 01/08/24 Allergies Allergy/AdvReac Type Severity Reaction Status Date / Time clindamycin Allergy Unknown Rash/Hives Verified 01/27/24 14:56 acetylcysteine AdvReac Anaphylaxis Verified 01/27/24 14:56 [From Mucomyst] citalopram [From Celexa] AdvReac Hallucinati Verified 01/27/24 14:56 ons diphenhydramine HCl AdvReac Rapid Verified 01/27/24 14:56 [From Benadryl] Heart Rate Review of Systems ROS Statement: Those systems with pertinent positive or pertinent negative responses have been documented in the HPI. ROS Other: All systems not noted in ROS Statement are negative. Past Medical History Past Medical History: Asthma, Cancer, Hypertension, Thyroid Disorder Additional Past Medical History / Comment(s): History of goiter status post thyroidectomy, questionable history of thyroid cancer although this is not clear, bipolar disorder, depression, history of suicidal ideations, history of drug overdose, alcoholism, seasonal rhinitis, psoriasis, breast cysts, history of broken toes in the right foot, History of Any Multi-Drug Resistant Organisms: None Reported Past Surgical History: No Surgical Hx Reported Additional Past Surgical History / Comment(s): Thyroidectomy 1999, SKIN NEVI REMOVED Past Anesthesia/Blood Transfusion Reactions: Previous Problems w/ Anesthesia, Postoperative Nausea & Vomiting (PONV) Additional Past Anesthesia/Blood Transfusion Reaction / Comment(s): Lives in a house with two roommates. ETOH. Pt no longer has a drivers license- she has had 2 DUI's. 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 She is seen at [facility]. Past Psychological History: Anxiety, Bipolar, Depression Smoking Status: Never smoker Past Alcohol Use History: Abuse, Daily, Heavy Past Drug Use History: None Reported - Past Family History Father Family Medical History: Cancer Additional Family Medical History / Comment(s): Father at age 64 of esophageal cancer. Father was an alcoholic and had cirrhosis of the liver. Mother Family Medical History: Cancer Additional Family Medical History / Comment(s): Mother of breast cancer at age 42yrs. General Exam General appearance: alert, appears intoxicated Head exam: Present: atraumatic, normocephalic Eye exam: Present: normal appearance, PERRL ENT exam: Present: normal exam Neck exam: Present: normal inspection. Absent: tenderness, meningismus Respiratory exam: Present: normal lung sounds bilaterally. Absent: respiratory distress, wheezes, rales Cardiovascular Exam: Present: regular rate, normal rhythm GI/Abdominal exam: Present: soft. Absent: distended, tenderness, guarding Neurological exam: Present: alert, oriented X3, CN II-XII intact. Absent: motor sensory deficit Psychiatric exam: Present: normal affect, normal mood Skin exam: Present: warm, dry, intact. Absent: cyanosis, diaphoretic Course Vital Signs 01/27/24 14:50 Temperature 98.3 F Pulse Rate 89 Respiratory 18 Rate Blood Pressure 123/76 Medical Decision Making - Medical Decision Making Was pt. sent in by a medical professional or institution (, PA, RECOVERY AGENT, urgent care, hospital, or penitentiary...) When possible be specific @ -No Did you speak to anyone other than the patient for history (EMS, parent, family, police, friend...)? What history was obtained from this source @ -No Did you review nursing and triage notes (agree or disagree)? Why? @ -I reviewed and agree with nursing and triage notes Were old charts reviewed (outside hosp., previous admission, EMS record, old EKG, old radiological studies, urgent care reports/EKG's, penitentiary records)? Report findings @ -No old charts were reviewed Differential Diagnosis (chest pain, altered mental status, abdominal pain women, abdominal pain men, vaginal bleeding, weakness, fever, dyspnea, syncope, headache, dizziness, GI bleed, back pain, seizure, CVA, palpatations, mental health, musculoskeletal)? @Differential Mental Health Depression, anxiety, bipolar, psychosis, schizophrenia, borderline personality, situational depression, adjustment disorder, behavioral disorder, brain tumor, malingering, substance abuse, encephalopathy, medication reaction, dementia, hypothyroidism, degenerative neurologic disorder, lupus.... This is not meant to be all-inclusive list EKG interpreted by me (3pts min.). @ -As above X-rays interpreted by me (1pt min.). @ -None done CT interpreted by me (1pt min.). @ -None done U/S interpreted by me (1pt. min.). @ -None done What testing was considered but not performed or refused? (CT, X-rays, U/S, labs)? Why? @ -None What meds were considered but not given or refused? Why? @ -None Did you discuss the management of the patient with other professionals (professionals i.e. , PA, RECOVERY AGENT, lab, RT, psych nurse, socially responsible investment adviser, genetic supervisor, teacher, police booking officer, case assembler)? Give summary @ -No Was smoking cessation discussed for >3mins.? @ -No Was critical care preformed (if so, how long)? @ -No Were there social determinants of health that impacted care today? How? (Homelessness, low income, unemployed, alcoholism, drug addiction, transportation, low edu. Level, literacy, decrease access to med. care, halfway, rehab)? @ -No Was there de-escalation of care discussed even if they declined (Discuss DNR or withdrawal of care, Hospice)? DNR status @ -No What co-morbidities impacted this encounter? (DM, HTN, Smoking, COPD, CAD, Cancer, CVA, ARF, Chemo, Hep., AIDS, mental health diagnosis, sleep apnea, morbid obesity)? @ -Alcohol abuse Was patient admitted / discharged? Hospital course, mention meds given and route, prescriptions, significant lab abnormalities, going to OR and other p ertinent info. @Patient admitted with acute alcohol intoxication and concern for withdrawal. Alcohol is 290 with some symptoms of withdrawal beginning. Patient does not have a ride and is unable to return to [place]. Admitted to [facility] physician group. Undiagnosed new problem with uncertain prognosis? @ -No Drug Therapy requiring intensive monitoring for toxicity (Heparin, Nitro, Insulin, Cardizem)? @ -No Were any procedures done? @ -No Diagnosis/symptom? @ -Alcohol withdrawal Acute, or Chronic, or Acute on Chronic? @ -acute Uncomplicated (without systemic symptoms) or Complicated (systemic symptoms)? @ complicated Side effects of treatment? @ -No Exacerbation, Progression, or Severe Exacerbation? @ -No Poses a threat to life or bodily function? How? (Chest pain, [place], [place], pneumonia, PE, COPD, DKA, ARF, appy, cholecystitis, CVA, Diverticulitis, Homicidal, Suicidal, threat to staff... and all critical care pts) @ -Yes, delirium tremens, alcohol withdrawal seizure - Lab Data Result diagrams: 01/27/24 16:13 01/27/24 16:13 Lab Results 01/27/24 01/27/24 Range/Units 16:13 16:13 WBC 5.1 (3.8-10.6) k/uL RBC 4.20 (3.80-5.40) m/uL Hgb 13.9 (11.4-16.0) gm/dL Hct 41.9 (34.0-46.0) % MCV 99.7 (80.0-100.0) fL MCH 33.2 (25.0-35.0) pg MCHC 33.3 (31.0-37.0) g/dL RDW 15.8 H (11.5-15.5) % Plt Count 226 (150-450) k/uL MPV 8.2 Neutrophils % 77 % Lymphocytes % 17 % Monocytes % 3 % Eosinophils % 1 % Basophils % 1 % Neutrophils # 3.9 (1.3-7.7) k/uL Lymphocytes # 0.9 L (1.0-4.8) k/uL Monocytes # 0.2 (0-1.0) k/uL Eosinophils # 0.1 (0-0.7) k/uL Basophils # 0.0 (0-0.2) k/uL Macrocytosis Slight Sodium 143 (137-145) mmol/L Potassium 5.7 H (3.5-5.1) mmol/L Chloride 104 (98-107) mmol/L Carbon Dioxide 20 L (22-30) mmol/L Anion Gap 19 mmol/L BUN 15 (7-17) mg/dL Creatinine 0.64 (0.52-1.04) mg/dL Est GFR (CKD-EPI)AfAm >90 (>60 ml/min/1.73 sqM) Est GFR (CKD-EPI)NonAf >90 (>60 ml/min/1.73 sqM) Glucose 116 H (74-99) mg/dL Calcium 9.3 (8.4-10.2) mg/dL Magnesium 1.7 (1.6-2.3) mg/dL Total Bilirubin 1.2 (0.2-1.3) mg/dL AST 127 H (14-36) U/L ALT 115 H (4-34) U/L Alkaline Phosphatase 51 (38-126) U/L Total Protein 8.9 H (6.3-8.2) g/dL Albumin 5.4 H (3.5-5.0) g/dL Serum Alcohol 291 H* mg/dL Disposition Clinical Impression: Alcoholism /alcohol abuse, Alcohol withdrawal syndrome Disposition: ADMITTED IP TO THIS HOSP Condition: Stable Is patient prescribed a controlled substance at d/c from ED?: No Referrals: [facility] [Primary Care Provider] - 1-2 days Time of Disposition: 17:34
[2024-01-27] MEDS: SODIUM CHLORIDE 0.9% 1,000 ML IV ONE (16:18)
[2024-01-27 16:22] LABS: Basophils % (A) 1 %; Eosinophils # (A) 0.1 k/uL (0-0.7); Eosinophils % (A) 1 %; HCT 41.9 % (34.0-46.0); HGB 13.9 gm/dL (11.4-16.0); Lymphocytes # (A) 0.9 k/uL (1.0-4.8); Lymphocytes % (A) 17 %; MCH 33.2 pg (25.0-35.0); MCHC 33.3 g/dL (31.0-37.0); MCV 99.7 fL (80.0-100.0); Macrocytosis Slight; Mean Platelet Volume 8.2; Monocytes # (A) 0.2 k/uL (0-1.0); Monocytes % (A) 3 %; Neutrophils # (A) 3.9 k/uL (1.3-7.7); Neutrophils % (A) 77 %; Platelet Count 226 k/uL (150-450); RDW 15.8 % (11.5-15.5); WBC 5.1 k/uL (3.8-10.6)
[2024-01-27 16:44] LABS: ALT 115 U/L (4-34); AST 127 U/L (14-36); African American GFR (CKD) >90 (>60 ml/min/1.73 sqM); Albumin 5.4 g/dL (3.5-5.0); Alkaline Phosphatase 51 U/L (38-126); Anion Gap 19 mmol/L; Blood Urea Nitrogen 15 mg/dL (7-17); Calcium 9.3 mg/dL (8.4-10.2); Carbon Dioxide 20 mmol/L (22-30); Chloride 104 mmol/L (98-107); Glucose 116 mg/dL (74-99); Magnesium 1.7 mg/dL (1.6-2.3); Non-African American GFR(CKD) >90 (>60 ml/min/1.73 sqM); Sodium 143 mmol/L (137-145); Total Bilirubin 1.2 mg/dL (0.2-1.3); Total Protein 8.9 g/dL (6.3-8.2)
[2024-01-27 16:47] LABS: Alcohol 291 mg/dL
[2024-01-27 16:48] LABS: Potassium 5.7 mmol/L (3.5-5.1)
[2024-01-27] MEDS: ONDANSETRON 4 MG/2 ML VIAL IVP STA (16:56)
[2024-01-27] MEDS ORDERED: NALOXONE 0.4 MG/ML 1 ML VIAL IV PRN (17:29)
[2024-01-27] MEDS ORDERED: LORazepam 2 MG/ML INJ IV PRN ×2 (17:30)
[2024-01-27] MEDS: THIAMINE 100 MG/ML 2 ML VIAL IM STA (18:04)
[2024-01-27] MEDS: SODIUM CHLORIDE 0.9% 1,000 ML IV SCH (18:04)
[2024-01-27] MEDS: LORazepam 2 MG/ML INJ IV PRN (19:46)
--- NOTE | 2024-01-28 03:30 | P.HPIM ---
History of Present Illness H&P Date: 01/27/24 Chief Complaint: alcohol withdrawal 63-year-old female with alcohol abuse bipolar disorder Patient coming into the ED seeking help for detox from alcohol. Patient was already having early symptoms of alcohol withdrawal shakiness restlessness and anxiety. Patient had multiple hospitalization for the same reason over the past 2 months. Recently she was discharged from the hospital about 4 days ago she admits that she started drinking again and regrets that decision. She denies any suicidal ideation. Otherwise she denies any fevers chills g headache chest pain trouble breathing abdominal pain changes in bowel or urinary habits denies any GI bleeding Patient does admit to heavy alcohol drinking denies any smoking or illicit drugs review of systems Pertinent positives as noted in HPI. All other systems were reviewed and are negative on exam Constitutional: Patient seems to be restless and irritable Eyes: Anicteric sclerae, moist conjunctiva, Pupils equal round reactive to light ENMT: NC/AT Oropharynx clear, no erythema, or exudates Neck: Supple, no masses, or JVD No carotid bruits No thyromegaly Lungs: Clear to auscultation Clear to percussion Normal respiratory effort, no accessory muscle use Cardiovascular: Heart regular in rate and rhythm, No murmurs, gallops, or rubs No peripheral edema Abdominal: Soft Nontender, no guarding, rebound or rigidity Abdomen moving with respiration Normoactive bowel sounds Extremities: No digital cyanosis No clubbing Pedal pulses intact and symmetrical Radial pulses intact and symmetrical No calf tenderness Psychiatric: Alert and oriented to person, place and time Neuro Muscles Strength 5/5 in all 4 extremities Sensation to light touch grossly present throughout Cranial nerves II-XII grossly intact Past Medical History Past Medical History: Asthma, Cancer, Hypertension, Thyroid Disorder Additional Past Medical History / Comment(s): History of goiter status post thyroidectomy, questionable history of thyroid cancer although this is not clear, bipolar disorder, depression, history of suicidal ideations, history of drug overdose, alcoholism, seasonal rhinitis, psoriasis, breast cysts, history of broken toes in the right foot, History of Any Multi-Drug Resistant Organisms: None Reported Past Surgical History: No Surgical Hx Reported Additional Past Surgical History / Comment(s): Thyroidectomy 1999, SKIN NEVI REMOVED Past Anesthesia/Blood Transfusion Reactions: Previous Problems w/ Anesthesia, Postoperative Nausea & Vomiting (PONV) Additional Past Anesthesia/Blood Transfusion Reaction / Comment(s): Lives in a house with two roommates. ETOH. Pt no longer has a drivers license- she has had 2 DUI's. 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 She is seen at [facility]. Past Psychological History: Anxiety, Bipolar, Depression Smoking Status: Never smoker Past Alcohol Use History: Abuse, Daily, Heavy Past Drug Use History: None Reported - Past Family History Father Family Medical History: Cancer Additional Family Medical History / Comment(s): Father at age 64 of esophageal cancer. Father was an alcoholic and had cirrhosis of the liver. Mother Family Medical History: Cancer Additional Family Medical History / Comment(s): Mother of breast cancer at age 42yrs. Medications and Allergies Home Medications Medication Instructions Recorded Confirmed Type Escitalopram [Lexapro] 20 mg PO DAILY 30 Days #30 tab 10/06/23 01/27/24 Rx Levothyroxine Sodium [Synthroid] 150 mcg PO DAILY 30 Days #30 tab 10/06/23 01/27/24 Rx lamoTRIgine [LaMICtal] 100 mg PO DAILY 30 Days #30 tab 10/06/23 01/27/24 Rx traZODone HCL 150 mg PO HS 30 Days #30 tablet 10/06/23 01/27/24 Rx Metoprolol Tartrate [Lopressor] 12.5 mg PO BID 11/18/23 01/27/24 History Pantoprazole [Protonix] 40 mg PO AC-BID #60 tab 12/29/23 01/27/24 Rx Folic Acid 1 mg PO DAILY tab 01/08/24 01/27/24 Rx Thiamine [Vitamin B-1] 100 mg PO DAILY tab 01/08/24 01/27/24 Rx Multivitamins, Thera [Multivitamin 1 cap PO DAILY 01/23/24 01/27/24 History (formulary)] Allergies Allergy/AdvReac Type Severity Reaction Status Date / Time clindamycin Allergy Unknown Rash/Hives Verified 01/27/24 14:56 acetylcysteine AdvReac Anaphylaxis Verified 01/27/24 14:56 [From Mucomyst] citalopram [From Celexa] AdvReac Hallucinati Verified 01/27/24 14:56 ons diphenhydramine HCl AdvReac Rapid Verified 03/22/24 14:56 [From Benadryl] Heart Rate Physical Exam Vitals: Vital Signs Temp Pulse Resp BP Pulse Ox 01/28/24 01:00 68 16 126/76 96 01/28/24 00:13 65 16 149/86 95 01/27/24 23:00 84 18 152/90 96 01/27/24 21:19 71 18 139/91 94 L 01/27/24 19:53 78 16 123/90 94 L 01/27/24 17:58 108 H 20 142/74 99 01/27/24 14:50 98.3 F 89 18 123/76 Intake and Output 01/27/24 01/27/24 01/28/24 14:59 22:59 06:59 Other: Weight 77.111 kg Results CBC & Chem 7: 01/27/24 16:13 01/27/24 16:13 Labs: Abnormal Lab Results - Last 24 Hours (Table) 01/27/24 01/27/24 Range/Units 16:13 16:13 RDW 15.8 H (11.5-15.5) % Lymphocytes # 0.9 L (1.0-4.8) k/uL Potassium 5.7 H (3.5-5.1) mmol/L Carbon Dioxide 20 L (22-30) mmol/L Glucose 116 H (74-99) mg/dL AST 127 H (14-36) U/L ALT 115 H (4-34) U/L Total Protein 8.9 H (6.3-8.2) g/dL Albumin 5.4 H (3.5-5.0) g/dL Serum Alcohol 291 H* mg/dL Assessment and Plan Assessment: 63-year-old female with alcohol abuse and dependence coming in requesting help with early symptoms of alcohol withdrawal as she is attempting to detox patient had multiple hospital courses over the past couple months for same problem of intoxication and alcohol withdrawal she recently discharged about 4 days ago. I discussed case with ED doctor and accepted the admission for alcohol dependence with withdrawal symptoms with anticipated length of stay more than 2 midnights Alcohol dependence and withdrawal symptoms Seizure precautions Fall precautions Benzos per CIWA scale Thiamine p.o. daily Monitor vital signs IV fluid hydration normal saline 100 cc/h Serum alcohol level 291 Depression Continue psych meds Lexapro and trazodone Hypothyroid Resume levothyroxine Hypertension Continue with metoprolol Transaminitis AST 127 ALT 150 Most likely secondary to alcohol consumption Continue to monitor liver enzymes Blood work overall unremarkable white count 5.1 hemoglobin 13.9 Sodium 143 potassium 5.7 BUN 15 creatinine 0.6 Full code DVT prophylaxis heparin subcu 3 times daily GI prophylaxis Protonix 40 mg p.o. daily
[2024-01-28] MEDS ORDERED: LORazepam 0.5 MG TAB PO PRN (03:39)
[2024-01-28] MEDS ORDERED: LORazepam 1 MG TAB PO PRN (03:39)
[2024-01-28] MEDS: LEVOTHYROXINE 75 MCG TAB PO SCH (06:17)
[2024-01-28 08:13] LABS: Anisocytosis Slight; Basophils % (A) 1 %; Eosinophils # (A) 0.1 k/uL (0-0.7); Eosinophils % (A) 2 %; HCT 36.6 % (34.0-46.0); HGB 12.1 gm/dL (11.4-16.0); Lymphocytes # (A) 0.6 k/uL (1.0-4.8); Lymphocytes % (A) 16 %; MCH 33.4 pg (25.0-35.0); MCHC 33.2 g/dL (31.0-37.0); MCV 100.7 fL (80.0-100.0); Macrocytosis Slight; Mean Platelet Volume 8.7; Monocytes # (A) 0.2 k/uL (0-1.0); Monocytes % (A) 6 %; Neutrophils # (A) 3.1 k/uL (1.3-7.7); Neutrophils % (A) 75 %; Platelet Count 157 k/uL (150-450); RBC 3.63 m/uL (3.80-5.40); RDW 16.3 % (11.5-15.5); WBC 4.1 k/uL (3.8-10.6)
[2024-01-28] MEDS: PANTOPRAZOLE 40 MG TABLET PO SCH (08:22)
[2024-01-28] MEDS: lamoTRIgine 100 MG TAB PO SCH (08:22)
[2024-01-28] MEDS: METOPROLOL TARTRATE 25 MG TAB PO SCH (08:23)
[2024-01-28] MEDS: HEPARIN SODIUM,PORCINE 5,000 UNIT/ML 1 ML VIAL SQ SCH (08:23)
[2024-01-28] MEDS: THIAMINE 100 MG TAB PO SCH (08:24)
[2024-01-28 08:26] LABS: ALT 89 U/L (4-34); AST 86 U/L (14-36); African American GFR (CKD) >90 (>60 ml/min/1.73 sqM); Albumin 4.4 g/dL (3.5-5.0); Alkaline Phosphatase 48 U/L (38-126); Anion Gap 9 mmol/L; Blood Urea Nitrogen 12 mg/dL (7-17); Calcium 8.5 mg/dL (8.4-10.2); Carbon Dioxide 27 mmol/L (22-30); Chloride 101 mmol/L (98-107); Glucose 77 mg/dL (74-99); Non-African American GFR(CKD) >90 (>60 ml/min/1.73 sqM); Potassium 4.1 mmol/L (3.5-5.1); Sodium 137 mmol/L (137-145); Total Bilirubin 1.2 mg/dL (0.2-1.3); Total Protein 7.1 g/dL (6.3-8.2)
[2024-01-28] MEDS ORDERED: THIAMINE 100 MG TAB PO SCH (09:00)
[2024-01-28] MEDS: chlordiazePOXIDE 25 MG CAP PO SCH (09:35)
--- NOTE | 2024-01-28 15:16 | P.PN ---
Subjective Progress Note Date: 01/28/24 No new complaints. Pt remains quite tremulous, ongoing withdrawal. Gen: In NAD, non-toxic HEENT: normocephalic, atraumatic, hearing acuity is intant, mucous membranes moist CVS: perfusing all extremities well, no pitting edema, Respiratory: symmetric chest expansion, no accessory muscle use, GI: soft, NTTP, ND, : no suprapubic tenderness, no CVA tenderness MSK/Derm: no rashes, cyanosis Neuro: CN II-XII intact, no motor weakness, bilateral tremors Psych: cooperative, euthymic mood, judgment and insight is intact Hospital course: 63-year-old female with alcohol abuse bipolar disorder presented to the ED seeking help for detox from alcohol. Serum alcohol level 291 Blood work overall unremarkable white count 5.1 hemoglobin 13.9 Sodium 143 potassium 5.7 BUN 15 creatinine 0.6 AST 127 ALT 150 Assessment/plan: Alcohol dependence and withdrawal symptoms Seizure precautions Fall precautions Benzos per CIWA scale Added Librium 25 mg 3 times daily Thiamine p.o. daily Monitor vital signs IV fluid hydration normal saline 100 cc/h Depression Continue psych meds Lexapro and trazodone Hypothyroid Resume levothyroxine Hypertension Continue with metoprolol Transaminitis Most likely secondary to alcohol consumption Continue to monitor liver enzymes Full code DVT prophylaxis heparin subcu 3 times daily GI prophylaxis Protonix 40 mg p.o. daily Objective - Vital Signs Vital signs: Vital Signs Temp 97.8 F 01/28/24 14:54 Pulse 60 01/28/24 14:54 Resp 16 01/28/24 14:54 BP 133/88 01/28/24 14:54 Pulse Ox 96 01/28/24 14:54 FiO2 Intake & Output 01/27/24 01/28/24 01/28/24 18:59 06:59 18:59 Weight 77.111 kg - Labs CBC & Chem 7: 01/28/24 07:45 01/28/24 07:45 Labs: Abnormal Lab Results - Last 24 Hours (Table) 01/27/24 01/27/24 01/28/24 Range/Units 16:13 16:13 07:45 RBC 3.63 L (3.80-5.40) m/uL MCV 100.7 H (80.0-100.0) fL RDW 15.8 H 16.3 H (11.5-15.5) % Lymphocytes # 0.9 L 0.6 L (1.0-4.8) k/uL Potassium 5.7 H (3.5-5.1) mmol/L Carbon Dioxide 20 L (22-30) mmol/L Glucose 116 H (74-99) mg/dL AST 127 H (14-36) U/L ALT 115 H (4-34) U/L Total Protein 8.9 H (6.3-8.2) g/dL Albumin 5.4 H (3.5-5.0) g/dL Serum Alcohol 291 H* mg/dL 01/28/24 Range/Units 07:45 RBC (3.80-5.40) m/uL MCV (80.0-100.0) fL RDW (11.5-15.5) % Lymphocytes # (1.0-4.8) k/uL Potassium (3.5-5.1) mmol/L Carbon Dioxide (22-30) mmol/L Glucose (74-99) mg/dL AST 86 H (14-36) U/L ALT 89 H (4-34) U/L Total Protein (6.3-8.2) g/dL Albumin (3.5-5.0) g/dL Serum Alcohol mg/dL
[2024-01-28] MEDS: traZODone HCL 50 MG TAB PO SCH (20:20)
[2024-01-29] MEDS: IBUPROFEN 200 MG TAB PO STA (06:04)
[2024-01-29 07:31] LABS: Basophils % (A) 0 %; Eosinophils # (A) 0.2 k/uL (0-0.7); Eosinophils % (A) 6 %; HCT 36.1 % (34.0-46.0); HGB 11.8 gm/dL (11.4-16.0); Lymphocytes # (A) 0.6 k/uL (1.0-4.8); Lymphocytes % (A) 21 %; MCH 33.4 pg (25.0-35.0); MCHC 32.6 g/dL (31.0-37.0); MCV 102.6 fL (80.0-100.0); Macrocytosis Slight; Mean Platelet Volume 9.5; Monocytes # (A) 0.2 k/uL (0-1.0); Monocytes % (A) 6 %; Neutrophils # (A) 1.8 k/uL (1.3-7.7); Neutrophils % (A) 66 %; Platelet Count 147 k/uL (150-450); RBC 3.52 m/uL (3.80-5.40); RDW 15.7 % (11.5-15.5); WBC 2.7 k/uL (3.8-10.6)
[2024-01-29 07:49] LABS: African American GFR (CKD) >90 (>60 ml/min/1.73 sqM); Anion Gap 9 mmol/L; Blood Urea Nitrogen 10 mg/dL (7-17); Calcium 8.7 mg/dL (8.4-10.2); Carbon Dioxide 25 mmol/L (22-30); Chloride 105 mmol/L (98-107); Glucose 88 mg/dL (74-99); Magnesium 1.7 mg/dL (1.6-2.3); Non-African American GFR(CKD) >90 (>60 ml/min/1.73 sqM); Potassium 3.7 mmol/L (3.5-5.1); Sodium 139 mmol/L (137-145)
--- NOTE | 2024-01-29 11:02 | P.PN ---
Subjective Progress Note Date: 01/29/24 No new complaints. Pts withdrawal is well controlled, seen resting comfortably in bed without tremors, agitation, anxiety. Gen: In NAD, non-toxic HEENT: normocephalic, atraumatic, hearing acuity is intant, mucous membranes moist CVS: perfusing all extremities well, no pitting edema, Respiratory: symmetric chest expansion, no accessory muscle use, GI: soft, NTTP, ND, : no suprapubic tenderness, no CVA tenderness MSK/Derm: no rashes, cyanosis Neuro: CN II-XII intact, no motor weakness, bilateral tremors Psych: cooperative, euthymic mood, judgment and insight is intact Hospital course: 63-year-old female with alcohol abuse bipolar disorder presented to the ED seeking help for detox from alcohol. Serum alcohol level 291 Blood work overall unremarkable white count 5.1 hemoglobin 13.9 Sodium 143 potassium 5.7 BUN 15 creatinine 0.6 AST 127 ALT 150 Assessment/plan: Alcohol dependence and withdrawal symptoms Seizure precautions Fall precautions Benzos per CIWA scale Added Librium 25 mg 3 times daily, tapered to BID Thiamine p.o. daily Monitor vital signs IV fluid hydration normal saline 100 cc/h Depression Continue psych meds Lexapro and trazodone Hypothyroid Resume levothyroxine Hypertension Continue with metoprolol Transaminitis Most likely secondary to alcohol consumption Continue to monitor liver enzymes Full code DVT prophylaxis heparin subcu 3 times daily GI prophylaxis Protonix 40 mg p.o. daily Objective - Vital Signs Vital signs: Vital Signs Temp 98.4 F 01/29/24 07:17 Pulse 50 L 01/29/24 07:17 Resp 18 01/29/24 07:17 BP 136/81 01/29/24 07:17 Pulse Ox 95 01/29/24 07:17 FiO2 Intake & Output 01/28/24 01/29/24 01/29/24 18:59 06:59 18:59 Weight 77.111 kg 85.5 kg Other: Voiding Method Toilet # Voids 2 - Labs CBC & Chem 7: 01/29/24 07:08 01/29/24 07:08 Labs: Abnormal Lab Results - Last 24 Hours (Table) 01/29/24 Range/Units 07:08 WBC 2.7 L (3.8-10.6) k/uL RBC 3.52 L (3.80-5.40) m/uL MCV 102.6 H (80.0-100.0) fL RDW 15.7 H (11.5-15.5) % Plt Count 147 L (150-450) k/uL Lymphocytes # 0.6 L (1.0-4.8) k/uL
[2024-01-29] MEDS: IBUPROFEN 400 MG TAB PO PRN (15:39)
[2024-01-29] MEDS: chlordiazePOXIDE 25 MG CAP PO SCH (20:42)
[2024-01-30 09:04] VITALS: BP 153/96; PULSE 59; RESP 16; TEMP 98.4
--- NOTE | 2024-01-30 11:28 | P.DS ---
Providers Date of admission: 01/27/24 17:29 Expected date of discharge: 01/30/24 Attending physician: Sallie Salcedo MD Primary care physician: [facility] Course: Alcohol dependence and withdrawal symptoms Depression Hypothyroid Hypertension Transaminitis Gen: In NAD, non-toxic HEENT: normocephalic, atraumatic, hearing acuity is intant, mucous membranes moist CVS: perfusing all extremities well, no pitting edema, Respiratory: symmetric chest expansion, no accessory muscle use, GI: soft, NTTP, ND, : no suprapubic tenderness, no CVA tenderness MSK/Derm: no rashes, cyanosis Neuro: CN II-XII intact, no motor weakness, bilateral tremors Psych: cooperative, euthymic mood, judgment and insight is intact Hospital course: 63-year-old female with alcohol abuse bipolar disorder presented to the ED s eeking help for detox from alcohol. Serum alcohol level 291 Blood work overall unremarkable white count 5.1 hemoglobin 13.9 Sodium 143 potassium 5.7 BUN 15 creatinine 0.6 AST 127 ALT 150 Pt treated wiht ativan PRN and librium. Withdrawal symptoms controlled. Discharged with ETOH cessation counseling. She should f/u with PCP. I spent 34 minutes coordinating this discharge on 01/29 Patient Condition at Discharge: Good Plan - Discharge Summary Discharge Rx Participant: No New Discharge Prescriptions: Continue lamoTRIgine [LaMICtal] 100 mg PO DAILY 30 Days #30 tab Escitalopram [Lexapro] 20 mg PO DAILY 30 Days #30 tab Levothyroxine Sodium [Synthroid] 150 mcg PO DAILY 30 Days #30 tab Metoprolol Tartrate [Lopressor] 12.5 mg PO BID Pantoprazole [Protonix] 40 mg PO AC-BID #60 tab traZODone HCL 150 mg PO HS 30 Days #30 tablet Folic Acid 1 mg PO DAILY tab Thiamine [Vitamin B-1] 100 mg PO DAILY tab Multivitamins, Thera [Multivitamin (formulary)] 1 cap PO DAILY Discharge Medication List Escitalopram [Lexapro] 20 mg PO DAILY 30 Days #30 tab 10/06/23 [Rx] Levothyroxine Sodium [Synthroid] 150 mcg PO DAILY 30 Days #30 tab 10/06/23 [Rx] lamoTRIgine [LaMICtal] 100 mg PO DAILY 30 Days #30 tab 10/06/23 [Rx] traZODone HCL 150 mg PO HS 30 Days #30 tablet 10/06/23 [Rx] Metoprolol Tartrate [Lopressor] 12.5 mg PO BID 11/18/23 [History] Pantoprazole [Protonix] 40 mg PO AC-BID #60 tab 12/29/23 [Rx] Folic Acid 1 mg PO DAILY tab 01/08/24 [Rx] Thiamine [Vitamin B-1] 100 mg PO DAILY tab 01/08/24 [Rx] Multivitamins, Thera [Multivitamin (formulary)] 1 cap PO DAILY 01/23/24 [History] Follow up Appointment(s)/Referral(s): [facility] [Primary Care Provider] - 1-2 days Discharge Disposition: HOME SELF-CARE
== END 2024-01-30 13:09 | disposition home or self-care (01) ==
LOC: EC 14:44 → 3SCARD 17:29 → 4SSUR 01-28 18:27
PROVIDERS: ADMIT Internal Medicine; ATTEND Internal Medicine
DX: F10.230 Alcohol dependence with withdrawal, uncomplicated (principal); Y90.8 Blood alcohol level of 240 mg/100 ml or more; I10 Essential (primary) hypertension; E89.0 Postprocedural hypothyroidism; F31.9 Bipolar disorder, unspecified; R74.01 Elevation of levels of liver transaminase levels; Z85.850 Personal history of malignant neoplasm of thyroid; Z79.890 Hormone replacement therapy; Z79.899 Other long term (current) drug therapy; Z88.1 Allergy status to other antibiotic agents
CPT/HCPCS: 96376 ×4; 96361 ×3; 96372 ×4; 96374; 96375; 99285; 36415; 80053 ×2; 80048; 83735 ×2; 85025 ×3; G0378 ×4; G0480; J2060 ×3; J1644 ×3; J3411; J3360; J2405; 80320

== ENCOUNTER 2024-02-04 11:50 | Emergency (ER) | payer OTHER ==
[2024-02-04 12:01] VITALS: BP 118/92; PULSE 84; RESP 18; TEMP 98.2
--- NOTE | 2024-02-04 12:07 | ED ---
General Adult HPI - General Chief complaint: Alcohol Stated complaint: ETOH Time Seen by Provider: 02/04/24 11:54 Source: patient, EMS Mode of arrival: EMS Limitations: no limitations - History of Present Illness Initial comments: Dictation was produced using [employer] dictation software. please excuse any grammatical, word or spelling errors. Chief Complaint: 63-year-old female presents to the emergency department for alcoholic intoxication History of Present Illness: Patient 63-year-old female she is well-known to emergency department for multiple visitations for alcohol intoxication. Patient was just admitted and discharged for alcohol intoxication. She was discharged on the . Patient states that she started drinking again. Patient states she wants to quit drinking yet again however after multiple admissions for alcohol withdrawal treatment she continues to drink alcohol. Patient was brought in from EMS. Patient denies any pain complaints. States her last alcohol intake was earlier today. The ROS documented in this emergency department record has been reviewed and confirmed by me. Those systems with pertinent positive or negative responses have been documented in the HPI. All other systems are other negative and/or noncontributory. - Related Data Home Medications Medication Instructions Recorded Confirmed Metoprolol Tartrate [Lopressor] 12.5 mg PO BID 11/18/23 01/27/24 Multivitamins, Thera [Multivitamin 1 cap PO DAILY 01/23/24 01/27/24 (formulary)] Previous Rx's Medication Instructions Recorded Escitalopram [Lexapro] 20 mg PO DAILY 30 Days #30 tab 10/06/23 Levothyroxine Sodium [Synthroid] 150 mcg PO DAILY 30 Days #30 tab 10/06/23 lamoTRIgine [LaMICtal] 100 mg PO DAILY 30 Days #30 tab 10/06/23 traZODone HCL 150 mg PO HS 30 Days #30 tablet 10/06/23 Pantoprazole [Protonix] 40 mg PO AC-BID #60 tab 12/29/23 Folic Acid 1 mg PO DAILY tab 01/08/24 Thiamine [Vitamin B-1] 100 mg PO DAILY tab 01/08/24 Allergies Allergy/AdvReac Type Severity Reaction Status Date / Time clindamycin Allergy Unknown Rash/Hives Verified 02/04/24 11:56 acetylcysteine AdvReac Anaphylaxis Verified 02/04/24 11:56 [From Mucomyst] citalopram [From Celexa] AdvReac Hallucinati Verified 02/04/24 11:56 ons diphenhydramine HCl AdvReac Rapid Verified 02/04/24 11:56 [From Benadryl] Heart Rate Review of Systems ROS Statement: Those systems with pertinent positive or pertinent negative responses have been documented in the HPI. ROS Other: All systems not noted in ROS Statement are negative. Past Medical History Past Medical History: Asthma, Cancer, Hypertension, Thyroid Disorder Additional Past Medical History / Comment(s): History of goiter status post thyroidectomy, questionable history of thyroid cancer although this is not clear , bipolar disorder, depression, history of suicidal ideations, history of drug overdose, alcoholism, seasonal rhinitis, psoriasis, breast cysts, history of broken toes in the right foot, History of Any Multi-Drug Resistant Organisms: None Reported Past Surgical History: No Surgical Hx Reported Additional Past Surgical History / Comment(s): Thyroidectomy 1999, SKIN NEVI REMOVED Past Anesthesia/Blood Transfusion Reactions: Previous Problems w/ Anesthesia, Postoperative Nausea & Vomiting (PONV) Additional Past Anesthesia/Blood Transfusion Reaction / Comment(s): Lives in a house with two roommates. ETOH. Pt no longer has a drivers license- she has had 2 DUI's. 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 She is seen at [facility]. Past Psychological History: Anxiety, Bipolar, Depression Smoking Status: Never smoker Past Alcohol Use History: Abuse, Daily, Heavy Past Drug Use History: None Reported - Past Family History Father Family Medical History: Cancer Additional Family Medical History / Comment(s): Father at age 64 of esophageal cancer. Father was an alcoholic and had cirrhosis of the liver. Mother Family Medical History: Cancer Additional Family Medical History / Comment(s): Mother of breast cancer at age 42yrs. General Exam - General Exam Comments Initial Comments: PHYSICAL EXAM: General Impression: Alert and oriented x3, not in acute distress HEENT: Normocephalic atraumatic, extra-ocular movements intact, pupils equal and reactive to light bilaterally, mucous membranes moist. Cardiovascular: Heart regular rate and rhythm Chest: Able to complete full sentences, no retractions, no tachypnea Abdomen: abdomen soft, non-tender, non-distended, no organomegaly Musculoskeletal: Pulses present and equal in all extremities, no peripheral edema Motor: no focal deficits noted Neurological: CN II-XII grossly intact, no focal motor or sensory deficits noted Skin: Intact with no visualized rashes Psych: Normal affect and mood Limitations: no limitations Course Vital Signs 02/04/24 11:53 Temperature 98.2 F Pulse Rate 84 Respiratory 18 Rate Blood Pressure 118/92 O2 Sat by Pulse 95 Oximetry Medical Decision Making - Medical Decision Making Was pt. sent in by a medical professional or institution (, [facility], CLINICAL PRACTICE CONSULTANT, urgent care, hospital, or group home...) When possible be specific @ -No Did you speak to anyone other than the patient for history (EMS, parent, family, police, friend...)? What history was obtained from this source @ -Some history obtained from EMS. Did you review nursing and triage notes (agree or disagree)? Why? @ -I reviewed and agree with nursing and triage notes Were old charts reviewed (outside hosp., previous admission, EMS record, old EKG, old radiological studies, urgent care reports/EKG's, group home records)? Report findings @ -No old charts were reviewed Differential Diagnosis (chest pain, altered mental status, abdominal pain women, abdominal pain men, vaginal bleeding, musculoskeletal, weakness, fever, dyspnea, syncope, headache, dizziness, GI bleed, back pain, seizure, CVA, palpatations, mental health)? @ -Not applicable EKG interpreted by me (3pts min.). @ -None done X-rays interpreted by me (1pt min.). @ -None done CT interpreted by me (1pt min.). @ -None done U/S interpreted by me (1pt. min.). @ -None done What testing was considered but not performed or refused? (CT, X-rays, U/S, labs)? Why? @ -None What meds were considered but not given or refused? Why? @ -None Did you discuss the management of the patient with other professionals (professionals i.e. [facility] Riley, CLINICAL PRACTICE CONSULTANT, lab, RT, psych nurse, social problems specialist, admiralty lawyer, teacher, chief informatics officer, case technician)? Give summary @ -No Was smoking cessation discussed for >3mins.? @ -No Was critical care preformed (if so, how long)? @ -No Were there social determinants of health that impacted care today? How? (Homelessness, low income, unemployed, alcoholism, drug addiction, transportation, low edu. Level, literacy, decrease access to med. care, custodial, rehab)? @ -No Was there de-escalation of care discussed even if they declined (Discuss DNR or withdrawal of care, Hospice)? DNR status @ -No What co-morbidities impacted this encounter? (DM, HTN, Smoking, COPD, CAD, Cancer, CVA, ARF, Chemo, Hep., AIDS, mental health diagnosis, sleep apnea, morbid obesity)? @ -None Was patient admitted / discharged? Hospital course, mention meds given and route, prescriptions, significant lab abnormalities, going to OR and other pertinent info. @ -63-year-old female presents to the emergency department for alcohol intoxication. Patient is well-known to the emergency department for multiple visitations for alcohol intoxication. She has been admitted on multiple occasions for treatment of alcohol withdrawals. She continues to be discharged to go home and drink large amounts of alcohol. Vital signs upon arrival are within acceptable limits. Patient well-appearing at the bedside. CBC is unremarkable. Laboratory evaluation shows no acidosis. Patient discharged. Undiagnosed new problem with uncertain prognosis? @ -No Drug Therapy requiring intensive monitoring for toxicity (Heparin, Nitro, Insulin, Cardizem)? @ -No Were any procedures done? @ -No Diagnosis/symptom? Acute, or Chronic, or Acute on Chronic? Uncomplicated (without systemic symptoms) or Complicated (systemic symptoms)? @ -Alcohol dependence Side effects of treatment? @ -No Exacerbation, Progression, or Severe Exacerbation? @ -No Poses a threat to life or bodily function? How? (Chest pain, USA, ND, pneumonia, PE, COPD, DKA, ARF, appy, cholecystitis, CVA, Diverticulitis, Homicidal, Suicidal, threat to staff... and all critical care pts) @ -No - Lab Data Result diagrams: 02/04/24 12:20 02/04/24 12:20 Lab Results 02/04/24 02/04/24 Range/Units 12:20 12:20 WBC 4.1 (3.8-10.6) k/uL RBC 3.74 L (3.80-5.40) m/uL Hgb 12.7 (11.4-16.0) gm/dL Hct 38.4 (34.0-46.0) % MCV 102.7 H (80.0-100.0) fL MCH 34.0 (25.0-35.0) pg MCHC 33.1 (31.0-37.0) g/dL RDW 16.1 H (11.5-15.5) % Plt Count 145 L (150-450) k/uL MPV 9.1 Anisocytosis Slight Macrocytosis Moderate Sodium 145 (137-145) mmol/L Potassium 4.2 (3.5-5.1) mmol/L Chloride 107 (98-107) mmol/L Carbon Dioxide 25 (22-30) mmol/L Anion Gap 13 mmol/L BUN 14 (7-17) mg/dL Creatinine 0.59 (0.52-1.04) mg/dL Est GFR (CKD-EPI)AfAm >90 (>60 ml/min/1.73 sqM) Est GFR (CKD-EPI)NonAf >90 (>60 ml/min/1.73 sqM) Glucose 96 (74-99) mg/dL Calcium 9.2 (8.4-10.2) mg/dL Disposition Clinical Impression: Alcohol dependence Disposition: HOME SELF-CARE Condition: Good Instructions (If sedation given, give patient instructions): Alcohol Intoxication (ED) Is patient prescribed a controlled substance at d/c from ED?: No Referrals: [facility] [Primary Care Provider] - 1-2 days Time of Disposition: 13:07
[2024-02-04 12:44] LABS: African American GFR (CKD) >90 (>60 ml/min/1.73 sqM); Anion Gap 13 mmol/L; Blood Urea Nitrogen 14 mg/dL (7-17); Calcium 9.2 mg/dL (8.4-10.2); Carbon Dioxide 25 mmol/L (22-30); Chloride 107 mmol/L (98-107); Glucose 96 mg/dL (74-99); Non-African American GFR(CKD) >90 (>60 ml/min/1.73 sqM); Potassium 4.2 mmol/L (3.5-5.1); Sodium 145 mmol/L (137-145)
[2024-02-04 13:03] LABS: Anisocytosis Slight; Basophils % (A) 1 %; Eosinophils % (A) 1 %; HCT 38.4 % (34.0-46.0); HGB 12.7 gm/dL (11.4-16.0); Lymphocytes # (A) 0.9 k/uL (1.0-4.8); Lymphocytes % (A) 21 %; MCHC 33.1 g/dL (31.0-37.0); MCV 102.7 fL (80.0-100.0); Macrocytosis Moderate; Mean Platelet Volume 9.1; Monocytes # (A) 0.4 k/uL (0-1.0); Monocytes % (A) 11 %; Neutrophils # (A) 2.7 k/uL (1.3-7.7); Neutrophils % (A) 64 %; Platelet Count 145 k/uL (150-450); RBC 3.74 m/uL (3.80-5.40); RDW 16.1 % (11.5-15.5); WBC 4.1 k/uL (3.8-10.6)
== END 2024-02-04 13:37 | disposition home or self-care (01) ==
LOC: EC 11:50
DX: F10.229 Alcohol dependence with intoxication, unspecified (principal); Z88.8 Allergy status to other drugs, medicaments and biological substances; Y90.0 Blood alcohol level of less than 20 mg/100 ml
CPT/HCPCS: 36415; 80048; 85025; 99284

== ENCOUNTER 2024-02-05 18:41 | Inpatient (IN) | payer OTHER ==
--- NOTE | 2024-02-05 18:54 | ED ---
General Adult HPI - General Chief complaint: Alcohol Stated complaint: alcohol withdrawls Time Seen by Provider: 02/05/24 18:43 Source: patient, EMS Mode of arrival: EMS Limitations: no limitations - History of Present Illness Initial comments: Patient presents to the ED by ambulance for evaluation. Patient states that she has "overdosed" on alcohol today. Patient states that she has had a pint of vodka to drink, and she states that her last drink was within the past hour or so. Patient was seen in the ED just yesterday for alcohol intoxication, and she was discharged home. Patient denies having any withdrawal symptoms. Patient denies trauma or injury. Patient denies illicit drug use or medication abuse/overdose. Patient denies having any pain, fever or chills, headache, focal neurodeficit, seizure, chest pain, dyspnea, palpitations, abdominal pain, nausea or vomiting, suicidal ideations, hallucinations, or any other symptoms or complaints. - Related Data Home Medications Medication Instructions Recorded Confirmed Metoprolol Tartrate [Lopressor] 12.5 mg PO BID 11/18/23 02/05/24 Multivitamins, Thera [Multivitamin 1 cap PO DAILY 01/23/24 02/05/24 (formulary)] Previous Rx's Medication Instructions Recorded Escitalopram [Lexapro] 20 mg PO DAILY 30 Days #30 tab 10/06/23 Levothyroxine Sodium [Synthroid] 150 mcg PO DAILY 30 Days #30 tab 10/06/23 lamoTRIgine [LaMICtal] 100 mg PO DAILY 30 Days #30 tab 10/06/23 traZODone HCL 150 mg PO HS 30 Days #30 tablet 10/06/23 Pantoprazole [Protonix] 40 mg PO AC-BID #60 tab 12/29/23 Folic Acid 1 mg PO DAILY tab 01/08/24 Thiamine [Vitamin B-1] 100 mg PO DAILY tab 01/08/24 Allergies Allergy/AdvReac Type Severity Reaction Status Date / Time clindamycin Allergy Unknown Rash/Hives Verified 02/05/24 19:54 acetylcysteine AdvReac Anaphylaxis Verified 02/05/24 19:54 [From Mucomyst] citalopram [From Celexa] AdvReac Hallucinati Verified 02/05/24 19:54 ons diphenhydramine HCl AdvReac Rapid Verified 02/05/24 19:54 [From Benadrylisa] Heart Rate Review of Systems ROS Statement: Those systems with pertinent positive or pertinent negative responses have been documented in the HPI. ROS Other: All systems not noted in ROS Statement are negative. Past Medical History Past Medical History: Asthma, Cancer, Hypertension, Thyroid Disorder Additional Past Medical History / Comment(s): History of goiter status post thyr oidectomy, questionable history of thyroid cancer although this is not clear, bipolar disorder, depression, history of suicidal ideations, history of drug overdose, alcoholism, seasonal rhinitis, psoriasis, breast cysts, history of broken toes in the right foot, History of Any Multi-Drug Resistant Organisms: None Reported Past Surgical History: No Surgical Hx Reported Additional Past Surgical History / Comment(s): Thyroidectomy 1999, SKIN NEVI REMOVED Past Anesthesia/Blood Transfusion Reactions: Previous Problems w/ Anesthesia, Postoperative Nausea & Vomiting (PONV) Additional Past Anesthesia/Blood Transfusion Reaction / Comment(s): Lives in a house with two roommates. ETOH. Pt no longer has a drivers license- she has had 2 DUI's. 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 She is seen at [facility]. Past Psychological History: Anxiety, Bipolar, Depression Smoking Status: Never smoker Past Alcohol Use History: Abuse, Daily, Heavy Past Drug Use History: None Reported - Past Family History Father Family Medical History: Cancer Additional Family Medical History / Comment(s): Father at age 64 of esophageal cancer. Father was an alcoholic and had cirrhosis of the liver. Mother Family Medical History: Cancer Additional Family Medical History / Comment(s): Mother of breast cancer at age 42yrs. General Exam Limitations: no limitations General appearance: alert, appears intoxicated, other (Smells of alcohol) Head exam: Present: atraumatic, normocephalic Eye exam: Present: PERRL ENT exam: Present: mucous membranes moist Neck exam: Absent: tenderness Respiratory exam: Present: normal lung sounds bilaterally. Absent: respiratory distress, wheezes, rales, rhonchi, stridor Cardiovascular Exam: Present: regular rate, normal rhythm, normal heart sounds, other (Normal radial pulses bilaterally) GI/Abdominal exam: Present: soft. Absent: distended, tenderness, guarding Extremities exam: Absent: tenderness, pedal edema Back exam: Present: normal inspection Neurological exam: Present: alert, oriented X3, CN II-XII intact, other (Slurred speech). Absent: motor sensory deficit Skin exam: Present: warm, dry, intact, normal color Course Vital Signs 02/05/24 18:44 Temperature 98.4 F Pulse Rate 80 Respiratory 16 Rate Blood Pressure 130/88 O2 Sat by Pulse 95 Oximetry - Reevaluation(s) Reevaluation #1: 02/05/24 20:44 Case, H&P, test results and ED management thus far were discussed with Dr. Arias. She accepts hospital admission. She has no further recommendations at this time. Medical Decision Making - Medical Decision Making Was pt. sent in by a medical professional or institution (, PA, HARDWARE INSTALLER, urgent care, hospital, or halfway...) When possible be specific @ -No Did you speak to anyone other than the patient for history (EMS, parent, family, police, friend...)? What history was obtained from this source @ -No Did you review nursing and triage notes (agree or disagree)? Why? @ -I reviewed and agree with nursing and triage notes Were old charts reviewed (outside hosp., previous admission, EMS record, old EKG, old radiological studies, urgent care reports/EKG's, halfway records)? Report findings @ -No old charts were reviewed Differential Diagnosis (chest pain, altered mental status, abdominal pain women, abdominal pain men, vaginal bleeding, weakness, fever, dyspnea, syncope, headache, dizziness, GI bleed, back pain, seizure, CVA, palpatations, mental health, musculoskeletal)? @ -Alcohol intoxication, liver disease, renal disease, dehydration, electrolyte abnormality, drug abuse, psychiatric disease, withdrawal EKG interpreted by me (3pts min.). @ -None done X-rays interpreted by me (1pt min.). @ -None done CT interpreted by me (1pt min.). @ -None done U/S interpreted by me (1pt. min.). @ -None done What testing was considered but not performed or refused? (CT, X-rays, U/S, labs)? Why? @ -None What meds were considered but not given or refused? Why? @ -None Did you discuss the management of the patient with other professionals ( professionals i.e. , PA, HARDWARE INSTALLER, lab, RT, psych nurse, child protective services social worker, plumbing mechanic, teacher, aoc director intelligence officer, shelter case manager)? Give summary @ -As above. Was smoking cessation discussed for >3mins.? @ -No Was critical care preformed (if so, how long)? @ -No Were there social determinants of health that impacted care today? How? (Homelessness, low income, unemployed, alcoholism, drug addiction, transportat ion, low edu. Level, literacy, decrease access to med. care, fpc, rehab)? @ -Alcoholism Was there de-escalation of care discussed even if they declined (Discuss DNR or withdrawal of care, Hospice)? DNR status @ -No What co-morbidities impacted this encounter? (DM, HTN, Smoking, COPD, CAD, Cancer, CVA, ARF, Chemo, Hep., AIDS, mental health diagnosis, sleep apnea, morbid obesity)? @ -None Was patient admitted / discharged? Hospital course, mention meds given and route, prescriptions, significant lab abnormalities, going to OR and other pertinent info. @ -Patient is easily arousable and breathing comfortably in the ED. Patient's alcohol level is 422. Patient has mildly elevated transaminases. The rest of the patient's labs are fairly unremarkable. Will admit the patient to the hospital given her significantly elevated alcohol level. Patient has been treated with IV fluids in the ED. Dr. Arias has accepted hospital admission. Undiagnosed new problem with uncertain prognosis? @ -No Drug Therapy requiring intensive monitoring for toxicity (Heparin, Nitro, Insulin, Cardizem)? @ -No Were any procedures done? @ -No Diagnosis/symptom? @ -Alcohol intoxication Acute, or Chronic, or Acute on Chronic? @ -Acute on chronic Uncomplicated (without systemic symptoms) or Complicated (systemic symptoms)? @ -Default Side effects of treatment? @ -No Exacerbation, Progression, or Severe Exacerbation? @ -No Poses a threat to life or bodily function? How? (Chest pain, [place], [place], pneumonia, PE, COPD, DKA, ARF, appy, cholecystitis, CVA, Diverticulitis, Homicidal, Suicidal, threat to staff... and all critical care pts) @ -No - Lab Data Result diagrams: 02/05/24 18:58 02/05/24 18:58 Lab Results 02/05/24 02/05/24 Range/Units 18:58 18:58 WBC 2.9 L (3.8-10.6) k/uL RBC 3.98 (3.80-5.40) m/uL Hgb 13.3 (11.4-16.0) gm/dL Hct 40.9 (34.0-46.0) % MCV 102.9 H (80.0-100.0) fL MCH 33.4 (25.0-35.0) pg MCHC 32.4 (31.0-37.0) g/dL RDW 16.1 H (11.5-15.5) % Plt Count 175 (150-450) k/uL MPV 8.6 Neutrophils % 49 % Lymphocytes % 34 % Monocytes % 10 % Eosinophils % 2 % Basophils % 1 % Neutrophils # 1.4 (1.3-7.7) k/uL Lymphocytes # 1.0 (1.0-4.8) k/uL Monocytes # 0.3 (0-1.0) k/uL Eosinophils # 0.1 (0-0.7) k/uL Basophils # 0.0 (0-0.2) k/uL Anisocytosis Slight Macrocytosis Moderate Sodium 148 H (137-145) mmol/L Potassium 4.1 (3.5-5.1) mmol/L Chloride 107 (98-107) mmol/L Carbon Dioxide 29 (22-30) mmol/L Anion Gap 12 mmol/L BUN 14 (7-17) mg/dL Creatinine 0.65 (0.52-1.04) mg/dL Est GFR (CKD-EPI)AfAm >90 (>60 ml/min/1.73 sqM) Est GFR (CKD-EPI)NonAf >90 (>60 ml/min/1.73 sqM) Glucose 93 (74-99) mg/dL Calcium 9.4 (8.4-10.2) mg/dL Total Bilirubin 0.5 (0.2-1.3) mg/dL AST 78 H (14-36) U/L ALT 81 H (4-34) U/L Alkaline Phosphatase 41 (38-126) U/L Total Protein 7.6 (6.3-8.2) g/dL Albumin 4.5 (3.5-5.0) g/dL Serum Alcohol 422 H* mg/dL Disposition Clinical Impression: Alcohol intoxication, Alcoholism /alcohol abuse Disposition: ADMITTED IP TO THIS HOSP Condition: Stable Is patient prescribed a controlled substance at d/c from ED?: No Referrals: None,Stated [Primary Care Provider] - 1-2 days Time of Disposition: 20:44
[2024-02-05 19:14] LABS: Anisocytosis Slight; Basophils % (A) 1 %; Eosinophils # (A) 0.1 k/uL (0-0.7); Eosinophils % (A) 2 %; HCT 40.9 % (34.0-46.0); HGB 13.3 gm/dL (11.4-16.0); Lymphocytes % (A) 34 %; MCH 33.4 pg (25.0-35.0); MCHC 32.4 g/dL (31.0-37.0); MCV 102.9 fL (80.0-100.0); Macrocytosis Moderate; Mean Platelet Volume 8.6; Monocytes # (A) 0.3 k/uL (0-1.0); Monocytes % (A) 10 %; Neutrophils # (A) 1.4 k/uL (1.3-7.7); Neutrophils % (A) 49 %; Platelet Count 175 k/uL (150-450); RBC 3.98 m/uL (3.80-5.40); RDW 16.1 % (11.5-15.5); WBC 2.9 k/uL (3.8-10.6)
[2024-02-05 19:39] LABS: ALT 81 U/L (4-34); AST 78 U/L (14-36); African American GFR (CKD) >90 (>60 ml/min/1.73 sqM); Albumin 4.5 g/dL (3.5-5.0); Alkaline Phosphatase 41 U/L (38-126); Anion Gap 12 mmol/L; Blood Urea Nitrogen 14 mg/dL (7-17); Calcium 9.4 mg/dL (8.4-10.2); Carbon Dioxide 29 mmol/L (22-30); Chloride 107 mmol/L (98-107); Glucose 93 mg/dL (74-99); Non-African American GFR(CKD) >90 (>60 ml/min/1.73 sqM); Potassium 4.1 mmol/L (3.5-5.1); Sodium 148 mmol/L (137-145); Total Bilirubin 0.5 mg/dL (0.2-1.3); Total Protein 7.6 g/dL (6.3-8.2)
[2024-02-05] MEDS: SODIUM CHLORIDE 0.9% 1,000 ML IV ONE (19:48)
[2024-02-05 19:53] LABS: Alcohol 422 mg/dL
[2024-02-05] MEDS ORDERED: NALOXONE 0.4 MG/ML 1 ML VIAL IV PRN (20:48)
[2024-02-05] MEDS ORDERED: LORazepam 2 MG/ML INJ IV PRN (22:35)
[2024-02-06] MEDS: ONDANSETRON 4 MG/2 ML VIAL IVP PRN (00:23)
[2024-02-06] MEDS: SODIUM CHLORIDE 0.9% 1,000 ML IV SCH (05:13)
[2024-02-06] MEDS: LORazepam 2 MG/ML INJ IV PRN ×2 (06:44→09:06)
[2024-02-06 08:43] LABS: Basophils # (A) 0.04 X 10*3/uL (0.00-0.10); Basophils % (A) 1.2 %; Eosinophils # (A) 0.05 X 10*3/uL (0.04-0.35); Eosinophils % (A) 1.5 %; HGB 11.8 g/dL (12.0-15.0); Lymphocytes % (A) 30.3 %; MCH 33.1 pg (27.0-32.0); MCHC 32.8 g/dL (32.0-37.0); MCV 101.1 FL (80.0-97.0); Mean Platelet Volume 10.6 FL (9.5-12.2); Monocytes # (A) 0.53 X 10*3/uL (0.20-1.00); Monocytes % (A) 16.1 %; NRBC Per 100 WBC 0 X 10*3/uL (0.00-0.01); Neutrophils # (A) 1.66 X 10*3/uL (1.80-7.70); Neutrophils % (A) 50.3 %; Platelet Count 166 X 10*3/uL (140-440); RBC 3.56 X 10*6/uL (4.10-5.20); RDW 17.2 % (11.5-14.5)
[2024-02-06 08:56] LABS: BUN/Creat Ratio 17.71 Ratio (12.00-20.00); Blood Urea Nitrogen 12.4 mg/dL (9.0-27.0); Carbon Dioxide 25.4 mmol/L (21.6-31.8); Chloride 103 mmol/L (96-109); Glucose 84 mg/dL (70-110); Potassium 4.2 mmol/L (3.5-5.5); Sodium 143 mmol/L (135-145)
[2024-02-06 08:57] LABS: ALT 70 U/L (8-44); AST 68 U/L (13-35); Albumin 4.4 g/dL (3.8-4.9); Albumin/Globulin Ratio 1.76 Ratio (1.60-3.17); Alkaline Phosphatase 38 U/L (41-126); Calcium 8.9 mg/dL (8.7-10.3); Globulin 2.5 g/dL (1.6-3.3); Total Bilirubin 0.5 mg/dL (0.3-1.2); Total Protein 6.9 g/dL (6.2-8.2)
[2024-02-06] MEDS: LEVOTHYROXINE 75 MCG TAB PO SCH (11:03)
[2024-02-06] MEDS: PANTOPRAZOLE 40 MG TABLET PO SCH (11:03)
[2024-02-06] MEDS: FOLIC ACID 1 MG TAB PO SCH (11:03)
[2024-02-06] MEDS: lamoTRIgine 100 MG TAB PO SCH (11:03)
[2024-02-06] MEDS: METOPROLOL TARTRATE 12.5 MG TAB PO SCH (11:04)
--- NOTE | 2024-02-06 11:52 | XR ---
EXAMINATION TYPE: XR chest 1V portable DATE OF EXAM: 02/06/2024 11:41 AM CLINICAL INDICATION:Female, 63 years old with history of chf; COMPARISON: Pet/CT 02/27/2023. TECHNIQUE: XR chest 1V portable Frontal view of the chest. FINDINGS: Lungs/Pleura: There is no evidence of pleural effusion, focal consolidation, or pneumothorax. Pulmonary vascularity: Unremarkable. Heart/mediastinum: Cardiomediastinal silhouette is unremarkable. Musculoskeletal: No acute osseous pathology. Other findings: Similar nodular density projecting over the right diaphragm correlating with infiltra tion with possible herniation of the liver into the lower chest. IMPRESSION: 1. No evidence for acute heart failure. 2. 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
[2024-02-06] MEDS: ESCITALOPRAM 20 MG TAB PO SCH (12:25)
--- NOTE | 2024-02-06 12:50 | HP ---
HISTORY AND PHYSICAL CHIEF COMPLAINT: Alcohol withdrawal syndrome. HISTORY OF PRESENT ILLNESS: This is a 63-year-old woman with a past medical history of alcohol intake, alcohol use disorder, and multiple hospital admissions, admitted with overdosing of alcohol. The patient had a pint of vodka and after that, the patient has had diffuse tremors, confusion, and hallucinations and features of DTs and the patient admitted for further evaluation and treatment. There is no history of any fever, rigors, or chills. The patient has extreme tremors, and shaking at this time. PAST MEDICAL HISTORY: Reviewed include alcohol intoxication, asthma, thyroid. Rest of the history and rest of the chart is also reviewed. HOME MEDICATIONS: Trazodone. Dose and rest of medications reviewed. ALLERGIES: Clindamycin. Rest of allergies noted. FAMILY HISTORY: History of cancer in the family. SOCIAL HISTORY: No smoking, heavy alcohol abuse. REVIEW OF SYSTEMS: Fourteen-point review is negative except as mentioned earlier. PHYSICAL EXAMINATION: VITAL SIGNS: Pulse is 89, blood pressure 119/80, respirations 16. HEENT: Conjunctivae normal. NECK: No JVD. CARDIOVASCULAR: S1, S2. RESPIRATIONS: Clear to auscultation. ABDOMEN: Soft. LEGS: No edema. No swelling. NERVOUS SYSTEM: Diffusely weak. Diffuse tremors present. LABORATORY DATA: WBC 3.3, hemoglobin 11.8. ASSESSMENT: 1. Acute alcohol withdrawal syndrome and acute delirium tremens. 2. Alcohol 422. 3. Acute alcoholic hepatitis. 4. Bicytopenia, possibly secondary to alcoholic liver disease with neutropenia. 5. Asthma. 6. Hypertension. 7. Hypothyroidism. 8. Multiple complex medical issues. 9. Anxiety, bipolar, depression. RECOMMENDATIONS AND DISCUSSION: This is a 63-year-old woman, who presented with multiple complex medical issues, we will monitor the patient closely. I would recommend CIWA protocol, Librium. Resume the home medications. Otherwise, continue to monitor. DT precautions, seizure precautions. Prognosis extremely guarded because of multiple complex medical issues. DVT prophylaxis, Protonix. I would also recommend IV banana bag at 75 mL/hour. Prognosis guarded. Further recommendations to follow. See orders for further details. MMODL / IJN: [id number] /
[2024-02-06] MEDS: THIAMINE 100 MG TAB PO SCH (13:22)
[2024-02-06] MEDS: MULTIVITAMINS, THERA 1 EACH TAB PO SCH (13:22)
[2024-02-06] MEDS: HEPARIN SODIUM,PORCINE 5,000 UNIT/ML 1 ML VIAL SQ SCH (13:22)
[2024-02-06] MEDS: PANTOPRAZOLE 40 MG/10 ML VIAL IVP SCH (13:34)
[2024-02-06] MEDS: SODIUM CHLORIDE 0.9% 1,000 ML with MVI, ADULT NO.4 WITH VIT K 10 ML, THIAMINE 100 MG, F... IV SCH (13:37)
[2024-02-06] MEDS ORDERED: METOCLOPRAMIDE 5 MG/ML 2 ML VIAL IVP PRN (15:30)
[2024-02-06] MEDS: HYDROmorphone 0.5 MG/0.5 ML SYRINGE IVP PRN (18:44)
[2024-02-06] MEDS: SODIUM CHLORIDE 0.9% 1,000 ML with MVI, ADULT NO.4 WITH VIT K 10 ML, THIAMINE 100 MG, F... IV ONE (22:13)
[2024-02-06] MEDS: traZODone HCL 50 MG TAB PO SCH (22:19)
[2024-02-07] MEDS: 1: MVI, ADULT NO.4 WITH VIT K 10 ML, THIAMINE 100 MG, FOLIC ACID 1 MG in SODIUM CHLORIDE IV SCH (09:48)
[2024-02-07 11:04] LABS: Basophils # (A) 0.04 X 10*3/uL (0.00-0.10); Basophils % (A) 1.3 %; Eosinophils # (A) 0.11 X 10*3/uL (0.04-0.35); Eosinophils % (A) 3.6 %; HCT 36.6 % (37.2-46.3); Lymphocytes # (A) 0.74 X 10*3/uL (0.90-5.00); Lymphocytes % (A) 24.2 %; MCHC 32.8 g/dL (32.0-37.0); MCV 100.5 FL (80.0-97.0); Mean Platelet Volume 11.4 FL (9.5-12.2); Monocytes # (A) 0.46 X 10*3/uL (0.20-1.00); NRBC Per 100 WBC 0 X 10*3/uL (0.00-0.01); Neutrophils # (A) 1.69 X 10*3/uL (1.80-7.70); Neutrophils % (A) 55.2 %; Platelet Count 164 X 10*3/uL (140-440); RBC 3.64 X 10*6/uL (4.10-5.20); RDW 15.8 % (11.5-14.5); WBC 3.06 X 10*3/uL (4.50-10.00)
[2024-02-07 11:21] LABS: ALT 58 U/L (8-44); AST 58 U/L (13-35); Alkaline Phosphatase 37 U/L (41-126); BUN/Creat Ratio 15.86 Ratio (12.00-20.00); Blood Urea Nitrogen 11.1 mg/dL (9.0-27.0); Calcium 8.7 mg/dL (8.7-10.3); Carbon Dioxide 25.7 mmol/L (21.6-31.8); Chloride 99 mmol/L (96-109); Globulin 2.5 g/dL (1.6-3.3); Glucose 77 mg/dL (70-110); Sodium 137 mmol/L (135-145); Total Protein 6.5 g/dL (6.2-8.2)
--- NOTE | 2024-02-08 06:04 | P.PN ---
Subjective Progress Note Date: 02/07/24 This is a pleasant 63-year-old female who was recently admitted with alcohol intoxication with concerns of acute alcohol withdrawal being closely monitored. Patient is maintained on CIWA protocol as well as Librium and will continue. Patient has had multiple hospitalizations for continued alcohol abuse and currently does not want to go to alcohol rehab. Patient to follow-up with [facility] outpatient regarding resources. Patient encouraged to increase activity as tolerated and encouraged oral intake. Patient reports will have some nausea and difficulty with oral intake. Continue Zofran as. Review of systems: Constitutional: No reports of fatigue, fever, or chills Cardiovascular: No reports of chest pain or palpitations Respiratory: No reports of shortness of breath or cough GI: reports of nausea, no reports of vomiting, no diarrhea : No reports of dysuria or retention Neurovascular: reports of generalized weakness, reports tremors All medications have been reviewed PHYSICAL EXAMINATION: GENERAL: The patient is alert and oriented x4, Well developed, well nourished. Anxious HEENT: Pupils are round and equally reacting to light. EOMI. no scleral icterus. No conjunctival pallor. Normocephalic, atraumatic. No pharyngeal erythema. No thyromegaly. CARDIOVASCULAR: S1 and S2 muffled PULMONARY: diminished breath sounds bilaterally with no wheezing or rhonchi noted. ABDOMEN: soft. Nontender on exam. obese. non-distended, normoactive bowel sounds. No palpable organomegaly. MUSCULOSKELETAL: No joint swelling or deformity. EXTREMITIES: No cyanosis, clubbing, or pedal edema. NEUROLOGICAL: Gross neurological examination did not reveal any focal deficits. Diffuse weakness, tremors noted SKIN: No rashes. Assessment: Acute alcohol withdrawal syndrome acute delirium tremens, alcohol level was 422 on admission Acute alcoholic hepatitis Bicytopenia secondary to alcoholic liver disease with neutropenia History of asthma, not in exacerbation Hypertension history Hypothyroidism history History of anxiety, bipolar depression GI prophylaxis DVT prophylaxis Full code Plan: Recommend to continue with current medications and will continue CIWA protocol. Librium taper also continued. Patient continues with significant nausea and reduced oral intake along with tremors and generalized weakness encouraged to increase activity as tolerated and frequent walking in the halls All medications reviewed and resumed as appropriate Social work following will provide resources to [facility]. Discussed inpatient alcohol rehab although patient reports she does well at home Possible discharge planning in the next 24 to 48 hours The impression and plan of care has been dictated by Mikayla Dumont, nurse practitioner as directed. Dr. Ashutosh MD I have performed a history and examination and MDM of this patient, discussed the same with the dictator, and agree with the dictator's assessment and plan as written ,documented as a scribe. Based on total visit time, I have performed more than 50% of the visit. Any additional findings or plans will be noted. Objective - Vital Signs Vital signs: Vital Signs Temp 98.4 F 02/07/24 08:00 Pulse 56 L 02/07/24 08:00 Resp 12 02/07/24 08:00 BP 148/97 02/07/24 08:00 Pulse Ox 97 02/07/24 08:00 FiO2 Intake & Output 02/06/24 02/07/24 02/07/24 18:59 06:59 18:59 Intake Total 300 Output Total 1100 Balance -800 Intake: Oral 300 Output: Urine 1100 Other: Voiding Method Diaper Diaper External Catheter External Catheter # Voids 1 - Labs CBC & Chem 7: 02/07/24 06:39 02/07/24 06:39
[2024-02-08] MEDS: KETOROLAC 15 MG/ML 1 ML VIAL IVP STA (08:52)
[2024-02-08 09:16] VITALS: RESP 17; TEMP 98.7
[2024-02-08 14:32] VITALS: BP 131/83; PULSE 56
[2024-02-08] MEDS: IBUPROFEN 400 MG TAB PO PRN (15:23)
--- NOTE | 2024-02-10 06:56 | P.DS ---
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 Patient will follow-up with primary care provider to establish in the outpatient setting upon discharge. Patient is to continue with Librium taper and outpatient follow-up with [facility] as scheduled. Total time taken is greater than 35 minutes. Hospital course This is a 63-year-old female who was recently admitted with acute alcohol intoxication with withdrawal, delirium tremens was monitored. Patient maintained on CIWA protocol and started on Librium taper reports to feeling improved. Patient not requiring much Ativan and tolerating Librium and will continue on a Librium taper in the outpatient setting. Social work attempted to arrange for possible [facility] intake although patient reports she does not want to go to inpatient rehab and feels she manages her alcoholism on her own. Currently no reports of chest pain, shortness of breath, or palpitations. Patient is afebrile. No reports of nausea or vomiting and patient is tolerating diet. Patient will be discharged home today. Guarded prognosis and high risk for readmissions given patient's continued alcohol abuse and noncompliance Physical exam: Gen: This is a 63-year-old female who is awake, alert and oriented x 3, well- developed, well-nourished, elderly appearing HEENT: Head is atraumatic, normocephalic. Pupils equal, round. Sclerae is anicteric. NECK: Supple. No JVD. No lymphadenopathy. No thyromegaly. LUNGS: Clear to auscultation. No wheezes or rhonchi. No intercostal retractions. HEART: Regular rate and rhythm. No murmur. ABDOMEN: Soft. Bowel sounds are present. No masses. No tenderness. EXTREMITIES: No pedal edema. No calf tenderness. Upper extremity tremor noted NEUROLOGICAL: Patient is awake, alert and oriented x3. Cranial nerves 2 through 12 are grossly intact. Please refer to medication reconciliation sheet for a list of medications. The impression and plan of care has been dictated by Mikayla Dumont, Nurse Practitioner as directed. Dr. Ashutosh MD I have performed a history and examination and MDM of this patient, discussed the same with the dictator, and agree with the dictator's assessment and plan as written ,documented as a scribe. Based on total visit time, I have performed more than 50% of the visit. Patient Condition at Discharge: Fair Plan - Discharge Summary New Discharge Prescriptions: New chlordiazePOXIDE HCl [Librium] 20 mg PO TID #6 cap Ibuprofen [Motrin] 400 mg PO Q6HR PRN tab PRN Reason: Pain Continue lamoTRIgine [LaMICtal] 100 mg PO DAILY 30 Days #30 tab Escitalopram [Lexapro] 20 mg PO DAILY 30 Days #30 tab Levothyroxine Sodium [Synthroid] 150 mcg PO DAILY 30 Days #30 tab Metoprolol Tartrate [Lopressor] 12.5 mg PO BID Pantoprazole [Protonix] 40 mg PO AC-BID #60 tab traZODone HCL 150 mg PO HS 30 Days #30 tablet Folic Acid 1 mg PO DAILY tab Thiamine [Vitamin B-1] 100 mg PO DAILY tab Multivitamins, Thera [Multivitamin (formulary)] 1 cap PO DAILY Discharge Medication List Escitalopram [Lexapro] 20 mg PO DAILY 30 Days #30 tab 10/06/23 [Rx] Levothyroxine Sodium [Synthroid] 150 mcg PO DAILY 30 Days #30 tab 10/06/23 [Rx] lamoTRIgine [LaMICtal] 100 mg PO DAILY 30 Days #30 tab 10/06/23 [Rx] traZODone HCL 150 mg PO HS 30 Days #30 tablet 10/06/23 [Rx] Metoprolol Tartrate [Lopressor] 12.5 mg PO BID 11/18/23 [History] Pantoprazole [Protonix] 40 mg PO AC-BID #60 tab 12/29/23 [Rx] Folic Acid 1 mg PO DAILY tab 01/08/24 [Rx] Thiamine [Vitamin B-1] 100 mg PO DAILY tab 01/08/24 [Rx] Multivitamins, Thera [Multivitamin (formulary)] 1 cap PO DAILY 01/23/24 [History] Ibuprofen [Motrin] 400 mg PO Q6HR PRN tab 02/08/24 [Rx] chlordiazePOXIDE HCl [Librium] 20 mg PO TID #6 cap 02/08/24 [Rx] Follow up Appointment(s)/Referral(s): [facility] Oliver molina [NON-STAFF] - 1-2 Days Patient Instructions/Handouts: Alcohol Intoxication (DC) Activity/Diet/Wound Care/Special Instructions: follow up as directed, sooner for worsening symptoms, problems or concerns . Discharge/Stand Alone Forms: AA Meetings [facility], Who Do I Call?, Community Resources, Outpatient Counseling, In Substance Abuse Facilities Discharge Disposition: HOME SELF-CARE
== END 2024-02-08 17:12 | disposition home or self-care (01) | DRG 775 ==
LOC: EC 18:41 → 6NMEDSUR 20:48 → OBSVTOIN 20:49 → 6NMEDSUR 21:15
PROVIDERS: ADMIT Internal Medicine; ATTEND Internal Medicine
DX: F10.231 Alcohol dependence with withdrawal delirium (principal); D70.9 Neutropenia, unspecified; E89.0 Postprocedural hypothyroidism; F10.229 Alcohol dependence with intoxication, unspecified; F31.9 Bipolar disorder, unspecified; F41.9 Anxiety disorder, unspecified; I10 Essential (primary) hypertension; K70.10 Alcoholic hepatitis without ascites; L40.9 Psoriasis, unspecified; T51.0X1A Toxic effect of ethanol, accidental (unintentional), initial encounter; J30.2 Other seasonal allergic rhinitis; Y90.8 Blood alcohol level of 240 mg/100 ml or more; Z63.72 Alcoholism and drug addiction in family; Z79.890 Hormone replacement therapy; Z81.1 Family history of alcohol abuse and dependence; Z11.52 Encounter for screening for COVID-19; Z28.311 Partially vaccinated for COVID-19; Z91.51 Personal history of suicidal behavior; Z88.1 Allergy status to other antibiotic agents; Z88.8 Allergy status to other drugs, medicaments and biological substances; Z79.899 Other long term (current) drug therapy
CPT/HCPCS: 36415; 71045; 80053; 80320; 85025; 87636; 96360; 96361; 99285

== ENCOUNTER 2024-02-13 17:25 | Inpatient (IN) | payer OTHER ==
--- NOTE | 2024-02-13 17:44 | ED ---
General Adult HPI - General Chief complaint: Alcohol Stated complaint: ETOH Time Seen by Provider: 02/13/24 17:28 Source: patient, EMS Mode of arrival: EMS Limitations: no limitations - History of Present Illness Initial comments: Dictation was produced using [employer] dictation software. please excuse any grammatical, word or spelling errors. Chief Complaint: 63-year-old alcoholic female presents to the ER after ingesting 32 ounces of hand technical specialist cytogenetics History of Present Illness: Patient is a 63-year-old alcohol dependent female presents via EMS from home after ingesting 32 ounces of hand technical specialist cytogenetics. Patient is a poor historian and unable to tell me when exactly she ingested this amount of hand technical specialist cytogenetics. She is well-known to emergency department for frequent visits for alcohol intoxication. Unable to obtain ROS secondary to mental status - Related Data Home Medications Medication Instructions Recorded Confirmed Metoprolol Tartrate [Lopressor] 12.5 mg PO BID 11/18/23 02/13/24 Multivitamins, Thera [Multivitamin 1 cap PO DAILY 01/23/24 02/13/24 (formulary)] Previous Rx's Medication Instructions Recorded Escitalopram [Lexapro] 20 mg PO DAILY 30 Days #30 tab 10/06/23 Levothyroxine Sodium [Synthroid] 150 mcg PO DAILY 30 Days #30 tab 10/06/23 lamoTRIgine [LaMICtal] 100 mg PO DAILY 30 Days #30 tab 10/06/23 traZODone HCL 150 mg PO HS 30 Days #30 tablet 10/06/23 Pantoprazole [Protonix] 40 mg PO AC-BID #60 tab 12/29/23 Folic Acid 1 mg PO DAILY tab 01/08/24 Thiamine [Vitamin B-1] 100 mg PO DAILY tab 01/08/24 Allergies Allergy/AdvReac Type Severity Reaction Status Date / Time clindamycin Allergy Unknown Rash/Hives Verified 02/13/24 20:32 acetylcysteine AdvReac Anaphylaxis Verified 02/13/24 20:32 [From Mucomyst] citalopram [From Celexa] AdvReac Hallucinati Verified 02/13/24 20:32 ons diphenhydramine HCl AdvReac Rapid Verified 02/13/24 20:32 [From Benadryl] Heart Rate Review of Systems ROS Statement: Those systems with pertinent positive or pertinent negative responses have been documented in the HPI. ROS Other: All systems not noted in ROS Statement are negative. Past Medical History Past Medical History: Asthma, Cancer, Hypertension, Thyroid Disorder Additional Past Medical History / Comment(s): History of goiter status post thyroidectomy, questionable history of thyroid cancer although this is not clear, bipolar disorder, depression, history of suicidal ideations, history of drug overdose, alcoholism, seasonal rhinitis, psoriasis, breast cysts, history of broken toes in the right foot, History of Any Multi-Drug Resistant Organisms: None Reported Past Surgical History: No Surgical Hx Reported Additional Past Surgical History / Comment(s): Thyroidectomy 1999, SKIN NEVI REMOVED Past Anesthesia/Blood Transfusion Reactions: Previous Problems w/ Anesthesia, Postoperative Nausea & Vomiting (PONV) Additional Past Anesthesia/Blood Transfusion Reaction / Comment(s): Lives in a house with two roommates. ETOH. Pt no longer has a drivers license- she has had 2 DUI's. 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 She is seen at [facility]. Past Psychological History: Anxiety, Bipolar, Depression Smoking Status: Never smoker Past Alcohol Use History: Abuse, Daily, Heavy Past Drug Use History: None Reported - Past Family History Father Family Medical History: Cancer Additional Family Medical History / Comment(s): Father at age 64 of esophageal cancer. Father was an alcoholic and had cirrhosis of the liver. Mother Family Medical History: Cancer Additional Family Medical History / Comment(s): Mother of breast cancer at age 42yrs. General Exam - General Exam Comments Initial Comments: PHYSICAL EXAM: General Impression: Alert and oriented, inebriated HEENT: Normocephalic atraumatic, extra-ocular movements intact, pupils equal and reactive to light bilaterally, mucous membranes moist. Cardiovascular: Heart regular rate and rhythm Chest: Able to complete full sentences, no retractions, no tachypnea Abdomen: abdomen soft, non-tender, non-distended, no organomegaly Musculoskeletal: Pulses present and equal in all extremities, no peripheral edema Motor: no focal deficits noted Neurological: CN II-XII grossly intact, no focal motor or sensory deficits noted Skin: Intact with no visualized rashes Psych: Normal affect and mood Limitations: no limitations Course Vital Signs 02/13/24 02/13/24 17:34 20:00 Temperature 98.2 F Pulse Rate 73 65 Respiratory 18 18 Rate Blood Pressure 124/82 128/89 O2 Sat by Pulse 93 L 96 Oximetry EKG Findings - EKG Comments: EKG Findings:: My EKG interpretation: Ventricular rate 60, sinus rhythm,. 170, cures 90, QTc 451. No VA prolongation, no QTC prolongation, no ST or T-wave changes noted. . Overall, this EKG is unremarkable Medical Decision Making - Medical Decision Making Was pt. sent in by a medical professional or institution ([facility], [facility], urgent care, hospital, or care home...) When possible be specific @ -No Did you speak to anyone other than the patient for history (EMS, parent, family, police, friend...)? What history was obtained from this source @ -No Did you review nursing and triage notes (agree or disagree)? Why? @ -I reviewed and agree with nursing and triage notes Were old charts reviewed (outside hosp., previous admission, EMS record, old EKG, old radiological studies, urgent care reports/EKG's, care home records)? Report findings @ -No old charts were reviewed Differential Diagnosis (chest pain, altered mental status, abdominal pain women, abdominal pain men, vaginal bleeding, musculoskeletal, weakness, fever, dyspnea, syncope, headache, dizziness, GI bleed, back pain, seizure, CVA, palpatations, mental health)? @ -Not applicable EKG interpreted by me (3pts min.). @ -See above X-rays interpreted by me (1pt min.). @ -None done CT interpreted by me (1pt min.). @ -None done U/S interpreted by me (1pt. min.). @ -None done What testing was considered but not performed or refused? (CT, X-rays, U/S, labs)? Why? @ -None What meds were considered but not given or refused? Why? @ -None Did you discuss the management of the patient with other professionals (professionals i.e. [facility], [facility], lab, RT, psych nurse, social worker masters, school teacher, teacher, ecological technical officer, caseworker intake)? Give summary @ -Case discussed with hospitalist for admission. Case also discussed with poison control for recommendations. They did recommend repeat blood work in 6 hours Was smoking cessation discussed for >3mins.? @ -No Was critical care preformed (if so, how long)? @ -No Were there social determinants of health that impacted care today? How? (Homelessness, low income, unemployed, alcoholism, drug addiction, transportation, low edu. Level, literacy, decrease access to med. care, fpc, rehab)? @ -No Was there de-escalation of care discussed even if they declined (Discuss DNR or withdrawal of care, Hospice)? DNR status @ -No What co-morbidities impacted this encounter? (DM, HTN, Smoking, COPD, CAD, Cancer, CVA, ARF, Chemo, Hep., AIDS, mental health diagnosis, sleep apnea, morbid obesity)? @ -None Was patient admitted / discharged? Hospital course, mention meds given and route, prescriptions, significant lab abnormalities, going to OR and other pertinent info. @ -63-year-old alcohol dependent female presents to the ER for alcohol intoxication and allegedly hand technical specialist cytogenetics ingestion. Vital signs upon arrival are within acceptable limits. Laboratory evaluation obtained. CBC is unremarkable. Sodium is 150 with alcohol for 17 suggesting beer [place]. Lactic acidosis of 2.2. No anion gap. Tox labs are negative. Unlikely to be toxic alcohol ingestion given no anion gap. No ketoacidosis secondary to alcohol. Patient will be admitted with consultation to psychiatry for self- harming behavior. Undiagnosed new problem with uncertain prognosis? @ -No Drug Therapy requiring intensive monitoring for toxicity (Heparin, Nitro, Ins ulin, Cardizem)? @ -No Were any procedures done? @ -No Diagnosis/symptom? Acute, or Chronic, or Acute on Chronic? Uncomplicated (without systemic symptoms) or Complicated (systemic symptoms)? @ -Alcohol intoxication Side effects of treatment? @ -No Exacerbation, Progression, or Severe Exacerbation? @ -No Poses a threat to life or bodily function? How? (Chest pain, USA, SC, pneumonia, PE, COPD, DKA, ARF, appy, cholecystitis, CVA, Diverticulitis, Homicidal, Suicidal, threat to staff... and all critical care pts) @ -yes - Lab Data Result diagrams: 02/13/24 18:29 02/13/24 18:29 Lab Results 02/13/24 02/13/24 02/13/24 Range/Units 18:29 18:29 18:29 WBC 3.3 L (3.8-10.6) k/uL RBC 3.56 L (3.80-5.40) m/uL Hgb 11.8 (11.4-16.0) gm/dL Hct 36.2 (34.0-46.0) % MCV 101.6 H (80.0-100.0) fL MCH 33.0 (25.0-35.0) pg MCHC 32.5 (31.0-37.0) g/dL RDW 15.8 H (11.5-15.5) % Plt Count 206 (150-450) k/uL MPV 7.9 Neutrophils % 54 % Lymphocytes % 29 % Monocytes % 11 % Eosinophils % 3 % Basophils % 1 % Neutrophils # 1.8 (1.3-7.7) k/uL Lymphocytes # 1.0 (1.0-4.8) k/uL Monocytes # 0.4 (0-1.0) k/uL Eosinophils # 0.1 (0-0.7) k/uL Basophils # 0.0 (0-0.2) k/uL Macrocytosis Slight Sodium 150 H (137-145) mmol/L Potassium 3.6 (3.5-5.1) mmol/L Chloride 114 H (98-107) mmol/L Carbon Dioxide 23 (22-30) mmol/L Anion Gap 13 mmol/L BUN 8 (7-17) mg/dL Creatinine 0.53 (0.52-1.04) mg/dL Est GFR (CKD-EPI)AfAm >90 (>60 ml/min/1.73 sqM) Est GFR (CKD-EPI)NonAf >90 (>60 ml/min/1.73 sqM) Glucose 93 (74-99) mg/dL Lactic Ac Sepsis Rflx Plasma Lactic Acid Raj 2.2 H* (0.7-2.0) mmol/L Calcium 8.6 (8.4-10.2) mg/dL Magnesium 1.7 (1.6-2.3) mg/dL Total Bilirubin 0.4 (0.2-1.3) mg/dL AST 69 H (14-36) U/L ALT 66 H (4-34) U/L Alkaline Phosphatase 40 (38-126) U/L Total Protein 6.8 (6.3-8.2) g/dL Albumin 4.1 (3.5-5.0) g/dL Salicylates <1.0 mg/dL Urine Opiates Screen (NotDetected) Ur Oxycodone Screen (NotDetected) Urine Methadone Screen (NotDetected) Acetaminophen <10.0 ug/mL Ur Barbiturates Screen (NotDetected) U Tricyclic Antidepress (NotDetected) Ur Phencyclidine Scrn (NotDetected) Ur Amphetamines Screen (NotDetected) U Methamphetamines Scrn (NotDetected) U Benzodiazepines Scrn (NotDetected) Urine Cocaine Screen (NotDetected) U Marijuana (THC) Screen (NotDetected) Serum Alcohol 417 H* mg/dL Acetone, Qual Negative (Negative) 02/13/24 02/13/24 Range/Units 19:14 19:40 WBC (3.8-10.6) k/uL RBC (3.80-5.40) m/uL Hgb (11.4-16.0) gm/dL Hct (34.0-46.0) % MCV (80.0-100.0) fL MCH (25.0-35.0) pg MCHC (31.0-37.0) g/dL RDW (11.5-15.5) % Plt Count (150-450) k/uL MPV Neutrophils % % Lymphocytes % % Monocytes % % Eosinophils % % Basophils % % Neutrophils # (1.3-7.7) k/uL Lymphocytes # (1.0-4.8) k/uL Monocytes # (0-1.0) k/uL Eosinophils # (0-0.7) k/uL Basophils # (0-0.2) k/uL Macrocytosis Sodium (137-145) mmol/L Potassium (3.5-5.1) mmol/L Chloride (98-107) mmol/L Carbon Dioxide (22-30) mmol/L Anion Gap mmol/L BUN (7-17) mg/dL Creatinine (0.52-1.04) mg/dL Est GFR (CKD-EPI)AfAm (>60 ml/min/1.73 sqM) Est GFR (CKD-EPI)NonAf (>60 ml/min/1.73 sqM) Glucose (74-99) mg/dL Lactic Ac Sepsis Rflx Y Plasma Lactic Acid Raj (0.7-2.0) mmol/L Calcium (8.4-10.2) mg/dL Magnesium (1.6-2.3) mg/dL Total Bilirubin (0.2-1.3) mg/dL AST (14-36) U/L ALT (4-34) U/L Alkaline Phosphatase (38-126) U/L Total Protein (6.3-8.2) g/dL Albumin (3.5-5.0) g/dL Salicylates mg/dL Urine Opiates Screen Not Detected (NotDetected) Ur Oxycodone Screen Not Detected (NotDetected) Urine Methadone Screen Not Detected (NotDetected) Acetaminophen ug/mL Ur Barbiturates Screen Not Detected (NotDetected) U Tricyclic Antidepress Not Detected (NotDetected) Ur Phencyclidine Scrn Not Detected (NotDetected) Ur Amphetamines Screen Not Detected (NotDetected) U Methamphetamines Scrn Not Detected (NotDetected) U Benzodiazepines Scrn Detected H (NotDetected) Urine Cocaine Screen Not Detected (NotDetected) U Marijuana (THC) Screen Not Detected (NotDetected) Serum Alcohol mg/dL Acetone, Qual (Negative) Disposition Clinical Impression: Alcohol intoxication Disposition: ADMITTED IP TO THIS [facility] Condition: Serious Decision Time: 20:26
[2024-02-13 18:34] LABS: Basophils % (A) 1 %; Eosinophils # (A) 0.1 k/uL (0-0.7); Eosinophils % (A) 3 %; HCT 36.2 % (34.0-46.0); HGB 11.8 gm/dL (11.4-16.0); Lymphocytes % (A) 29 %; MCHC 32.5 g/dL (31.0-37.0); MCV 101.6 fL (80.0-100.0); Macrocytosis Slight; Mean Platelet Volume 7.9; Monocytes # (A) 0.4 k/uL (0-1.0); Monocytes % (A) 11 %; Neutrophils # (A) 1.8 k/uL (1.3-7.7); Neutrophils % (A) 54 %; Platelet Count 206 k/uL (150-450); RBC 3.56 m/uL (3.80-5.40); RDW 15.8 % (11.5-15.5); WBC 3.3 k/uL (3.8-10.6)
[2024-02-13 18:45] LABS: ALT 66 U/L (4-34); AST 69 U/L (14-36); African American GFR (CKD) >90 (>60 ml/min/1.73 sqM); Albumin 4.1 g/dL (3.5-5.0); Alkaline Phosphatase 40 U/L (38-126); Anion Gap 13 mmol/L; Blood Urea Nitrogen 8 mg/dL (7-17); Calcium 8.6 mg/dL (8.4-10.2); Carbon Dioxide 23 mmol/L (22-30); Chloride 114 mmol/L (98-107); Glucose 93 mg/dL (74-99); Magnesium 1.7 mg/dL (1.6-2.3); Non-African American GFR(CKD) >90 (>60 ml/min/1.73 sqM); Potassium 3.6 mmol/L (3.5-5.1); Salicylate <1.0 mg/dL; Sodium 150 mmol/L (137-145); Total Bilirubin 0.4 mg/dL (0.2-1.3); Total Protein 6.8 g/dL (6.3-8.2)
[2024-02-13 19:16] LABS: Alcohol 417 mg/dL
[2024-02-13 19:41] LABS: Acetaminophen <10.0 ug/mL
[2024-02-13 20:06] LABS: Amphetamine Screen,Urine Not Detected (NotDetected); Barbiturate Screen,Urine Not Detected (NotDetected); Benzodiazepines Screen,Urine Detected (NotDetected); Cocaine Screen,Urine Not Detected (NotDetected); Methadone Screen, Urine Not Detected (NotDetected); Opiate Screen,Urine Not Detected (NotDetected); Oxycodone Screen, Urine Not Detected (NotDetected); Phencyclidine Screen,Urine Not Detected (NotDetected); Tricyclic Antidepressant,Urine Not Detected (NotDetected); Urn Cannabinoid Scrn Not Detected (NotDetected)
[2024-02-13] MEDS ORDERED: NALOXONE 0.4 MG/ML 1 ML VIAL IV PRN (20:22)
[2024-02-13] MEDS: SODIUM CHLORIDE 0.9% 1,000 ML IV SCH (20:36)
[2024-02-13] MEDS ORDERED: LORazepam 2 MG/ML INJ IV PRN (22:35)
[2024-02-13] MEDS: LORazepam 2 MG/ML INJ IV PRN (23:03)
[2024-02-14] MEDS: SODIUM CHLORIDE 0.9% 1,000 ML with MVI, ADULT NO.4 WITH VIT K 10 ML, THIAMINE 100 MG, F... IV ONE (00:21)
[2024-02-14 00:31] LABS: ALT 65 U/L (4-34); AST 70 U/L (14-36); African American GFR (CKD) >90 (>60 ml/min/1.73 sqM); Albumin 3.9 g/dL (3.5-5.0); Alkaline Phosphatase 38 U/L (38-126); Anion Gap 11 mmol/L; Blood Urea Nitrogen 7 mg/dL (7-17); Calcium 8.6 mg/dL (8.4-10.2); Carbon Dioxide 26 mmol/L (22-30); Chloride 112 mmol/L (98-107); Glucose 86 mg/dL (74-99); Non-African American GFR(CKD) >90 (>60 ml/min/1.73 sqM); Potassium 3.6 mmol/L (3.5-5.1); Sodium 149 mmol/L (137-145); Total Bilirubin 0.4 mg/dL (0.2-1.3); Total Protein 6.6 g/dL (6.3-8.2)
[2024-02-14] MEDS: LORazepam 2 MG/ML INJ IV PRN (03:50)
[2024-02-14] MEDS ORDERED: Magnesium Replacement Protocol 1 EACH MISC MISCELLANE PRN (06:24)
[2024-02-14] MEDS ORDERED: Potassium Replacement Protocol 1 EACH MISC MISCELLANE PRN (06:24)
[2024-02-14] MEDS: DEXTROSE 5% IN WATER 1,000 ML IV SCH (07:23)
[2024-02-14] MEDS: THIAMINE 100 MG TAB PO SCH (07:49)
[2024-02-14] MEDS: HEPARIN SODIUM,PORCINE 5,000 UNIT/ML 1 ML VIAL SQ SCH (07:49)
[2024-02-14 09:01] LABS: Basophils % (A) 2 %; Eosinophils # (A) 0.1 k/uL (0-0.7); Eosinophils % (A) 4 %; HCT 36.5 % (34.0-46.0); HGB 11.8 gm/dL (11.4-16.0); Lymphocytes # (A) 0.7 k/uL (1.0-4.8); Lymphocytes % (A) 28 %; MCH 33.2 pg (25.0-35.0); MCHC 32.2 g/dL (31.0-37.0); Macrocytosis Moderate; Mean Platelet Volume 8.6; Monocytes # (A) 0.2 k/uL (0-1.0); Monocytes % (A) 9 %; Neutrophils # (A) 1.3 k/uL (1.3-7.7); Neutrophils % (A) 54 %; Platelet Count 217 k/uL (150-450); RBC 3.54 m/uL (3.80-5.40); RDW 15.8 % (11.5-15.5); WBC 2.4 k/uL (3.8-10.6)
[2024-02-14 09:07] LABS: VBG PH 7.43 (7.31-7.41)
[2024-02-14 09:25] LABS: Albumin/Globulin Ratio 1.4; Bilirubin,Unconjugated 0.4 mg/dL (0.0-1.1); Globulin 2.9 g/dL; Magnesium 1.5 mg/dL (1.6-2.3); Total Bilirubin 0.7 mg/dL (0.2-1.3); Total Protein 6.9 g/dL (6.3-8.2)
[2024-02-14 09:29] LABS: African American GFR (CKD) >90 (>60 ml/min/1.73 sqM); Anion Gap 11 mmol/L; Blood Urea Nitrogen 6 mg/dL (7-17); Calcium 8.5 mg/dL (8.4-10.2); Carbon Dioxide 24 mmol/L (22-30); Chloride 110 mmol/L (98-107); Glucose 92 mg/dL (74-99); Non-African American GFR(CKD) >90 (>60 ml/min/1.73 sqM); Potassium 3.6 mmol/L (3.5-5.1); Sodium 145 mmol/L (137-145)
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
[2024-02-14] MEDS: cloNIDine 0.1 MG/24HR PATCH TRANSDERM SCH (10:34)
[2024-02-14] MEDS: LEVOTHYROXINE IVP 100 MCG/5 ML VIAL IV SCH (10:35)
[2024-02-14] MEDS: ESCITALOPRAM 20 MG TAB PO SCH (10:37)
[2024-02-14] MEDS: lamoTRIgine 100 MG TAB PO SCH (10:37)
[2024-02-14] MEDS: PANTOPRAZOLE 40 MG/10 ML VIAL IVP SCH (10:48)
--- NOTE | 2024-02-14 11:16 | XR ---
EXAMINATION TYPE: XR chest 2V DATE OF EXAM: 02/14/2024 COMPARISON: 02/06/2024 TECHNIQUE: PA and lateral views submitted. HISTORY: Shortness of breath FINDINGS: The lungs are clear and there is no pneumothorax, pleural effusion, or focal pneumonia. Heart size normal and no overt failure. Osseous structures demonstrate hypertrophic and degenerative changes of the spine. AC joint arthropathy with chronic resorption of the left clavicle. IMPRESSION: 1. No acute process.
--- NOTE | 2024-02-14 14:32 | P.CN ---
Psychiatric Consult - . Consult date: 02/14/24 Consult:: 02/14/24 13:44 IDENTIFYING DATA: This patient is a 63-year-old female with significant history of alcohol use disorder depression and SI, she currently lives in a house, she is she has no kids. 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 Patient has a long history of several admissions ER visits and psychiatric admissions mainly related to depression and alcohol abuse/use disorder. Patient was a poor historian when she came into the hospital, urine drug screen is positive for benzodiazepines. Patient was admitted to the medical floors psychiatry was consulted and saw patient today again at the bedside. Patient was fairly tremulous, he was fairly vague and guarded during conversation. He claims that she is here for "detox" and states that she was drinking alcohol and also "hairspray" states that it was available in a "gel form" and states that she mix it in with the water. She states that she resorted to this and not alcohol because the male friend that she was with did not allow her to purchase alcohol at the [id number] store. She states that she is having mild depression, some anxiety mainly related to the withdrawal symptoms. She was requesting more Ativan to help with her shakes. She claims that "I must of blacked out at home and the roommate called the ambulance". She did claim that she wants to call the access line and her [facility] worker and try to get into rehab. Claims that acamprosate helps her cravings, naltrexone makes her "sick". She is not reporting any auditory or visual hallucinations. She is denying any current suicidal or homicidal ideations intent or plan. She denies any paranoia or other delusions. PAST PSYCHIATRIC HISTORY: Patient states that he has previously diagnosed bipolar 2 disorder and alcohol use disorder. The patient reports that she used to be on several different medications including, acamprosate, Abilify, Lamictal, Lexapro, and trazodone. She is currently open with [facility]. She has had prior psychiatric admissions on . and September 2023. She does report one prior attempt at suicide by jumping in front of a train in the distant past. PAST MEDICAL HISTORY: Past Medical History: Asthma, Cancer, Hypertension, Thyroid Disorder Additional Past Medical History / Comment(s): History of goiter status post thyroidectomy, questionable history of thyroid cancer although this is not clear, bipolar disorder, depression, history of suicidal ideations, history of drug overdose, alcoholism, seasonal rhinitis, psoriasis, breast cysts, history of broken toes in the right foot, hypertension, History of Any Multi-Drug Resistant Organisms: None Reported Past Surgical History: No Surgical Hx Reported Additional Past Surgical History / Comment(s): Thyroidectomy 1999, SKIN NEVI REMOVED Past Anesthesia/Blood Transfusion Reactions: Previous Problems w/ Anesthesia, Postoperative Nausea & Vomiting (PONV) Additional Past Anesthesia/Blood Transfusion Reaction / Comment(s): patient states she is homeless. Pt is normally independent. Pt is an alcoholic. She is feeling more depressed lately and ashamed of her alcoholism. PT STATED SHE IS A BINGE DRINKER AND IS A BLACK OUT DRINKER,THINKS SHE STARTED DRINKING 4-5 DAYS AGO 3 PINTS A DAY AND WHEN COMING DOWN DRANK SUAVE HAIR SPRAY Pt no longer has a drivers license- she has had 2 DUI's. 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 She is seen at [facility]. Past Psychological History: Anxiety, Bipolar, Depression Smoking Status: Never smoker Past Alcohol Use History: Abuse, Daily, Heavy Past Drug Use History: None Reported ALLERGIES: as per EMR CHEMICAL DEPENDENCY HISTORY: as per HPI. FAMILY PSYCHIATRIC/SUBSTANCE USE HISTORY: denies SOCIAL HISTORY: Patient was born and raised in [place], [place]. She is after her second several years ago. She has no children. She is currently unemployed. She lives in her house with roommates. 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 Currently unemployed MENTAL STATUS EXAM: General Appearance: Patient appears to be have calderon hair, glasses, stated age is alert, pleasant, and guarded/evasive. Patient appears to have fair hygiene and grooming wearing hospital gown with fair eye contact. Behavior: Patient is calmly lying in bed without any agitated behavior. Fairly guarded Speech: Patient's speech is fluent and nonpressured. hesitant, soft tone, shaky tone Mood/Affect: Patient reports their mood is "nervous and a bit depressed today", affect is congruent Suicidality/Homicidality: Patient vehemently denies any current suicidal or homicidal ideation Perceptions: Patient denies any visual hallucinations and denies any auditory hallucinations Though content/process: There is no evidence of any delusional thought content and thought process is linear. Future oriented Memory and concentration: AOX3, grossly intact for the purposes of this session. Can spell "WORLD" backwards Judgment and insight: Chronically poor/impulsive IMPRESSIONS: Alcohol use disorder, severe dependence with alcohol withdrawal History of bipolar depression PLAN: -At this time patient DOES NOT meet criteria for inpatient psychiatric admission however can continue to follow-up with [facility] as she is currently being seen by her addiction social worker and disability case manager on a regular basis. -Would recommend the following medication changes/additions: Can continue with her home medications as prescribed. Added acamprosate back to her medication regimen 666 mg 3 times daily for alcohol cravings. Will also add Librium 20 mg 3 times daily scheduled for alcohol withdrawal symptoms, can continue to taper down. -CIWA protocol with PRN Ativan for alcohol withdrawal. Continue to monitor vital signs. -Attempted to offer patient inpatient substance rehab, patient claims that she will call the access line today to get into [facility]. -Communicated plan to patient's nurse and asked if she would be able to provide patient the access number for rehab. -Psychiatry will sign off at this time -Please contact with any questions. 02/14/24 14:25
[2024-02-14] MEDS: ACAMPROSATE CALCIUM 333 MG TABLET.DR PO SCH (15:39)
[2024-02-14] MEDS: METOPROLOL TARTRATE 12.5 MG TAB PO SCH (20:38)
[2024-02-14] MEDS: traZODone HCL 50 MG TAB PO SCH (20:38)
[2024-02-14] MEDS ORDERED: HEPARIN SODIUM,PORCINE 5,000 UNIT/ML 1 ML VIAL SQ SCH (21:00)
[2024-02-15] MEDS: LEVOTHYROXINE 75 MCG TAB PO SCH (06:25)
[2024-02-15] MEDS: FOLIC ACID 1 MG TAB PO SCH (10:02)
[2024-02-15] MEDS ORDERED: PROCHLORPERAZINE INJ 10 MG/2 ML VIAL IVP PRN ×2 (10:25→11:54)
[2024-02-15] MEDS: PROCHLORPERAZINE INJ 10 MG/2 ML VIAL IVP STA (11:11)
--- NOTE | 2024-02-15 12:14 | P.PN ---
Subjective This is a pleasant 63 years old female with past medical history of multiple medical problems, including history of alcohol use disorder for many years. Presents yesterday for suspected consumption of hand sanitizers and alcohol abuse as per documented records However when I talked to the patient she states that she cannot remember how she came to the hospital but she was drinking a lot yesterday. Patient is awake oriented to time place and person, partially she is disoriented to time. She does not remember yesterday when she came to the hospital but she follows command Yesterday patient was drinking vodka liquor (called 5 oclock) as per pt she drinks 1 to 2 pints but she denies smoking or illicit drugs However yesterday she was using hairspray for drinking as a substitute because she lost her credit card and the same thing about 1 week ago when she was using hand clerk typist consume his alcohol consumption as a substitute for alcohol When asked the patient she denies intention to kill herself or commit suicide and she says it was not an accident. The last thing she remembers that she passed out at home from drinking too much and the next thing she remembers she is in her current room. Currently she is awake alert and oriented to time place person, she knows she is in the hospital and the name of the hospital and the date except patient throughout this 2022 and the name of the president. She looks withdrawn but she denies chest pain or dyspnea. She is coughing frequently No abdominal discomfort or vomiting or diarrhea. She denies urinary complaint. She has difficulty walking because of her drinking habits. And does mention about she wants to go to rehab because she got tired of her drinking habits Patient also has a history of bipolar disorder and she was taking Lamictal for this purpose, she confirms to me For seizure and she does not have history of seizure No dizziness but she has mild headache She denies depression or suicidal ideation No nausea vomiting no vision problems or slurred speech However patient is very shaky and nauseated but there is no vomiting She is complaining also from right hip pain for the last 2 years, she denies recent fall, she fell about 2 weeks ago with no residual pain or effect as she describes She is hemodynamically stable Labs showing mild leukopenia 3.3 and 2.4, rest of CBC is unremarkable, hide sodium 149 improved down to 145 today. Liver enzymes mildly elevated, slightly worse today Rest of BMP is unremarkable. Mildly elevated lactic acid at 2.4 Urine drug screen is positive for benzodiazepine Serum alcohol was elevated at 417 on admission Acetaminophen less than 10 and salicylate less than 1 EKG showing sinus rhythm at [address]-T changes Patient currently on CIWA protocol and thiamine 02/15/2024 Patient is awake and alert, no significant withdrawal symptoms. No chest pain or abdominal pain However patient since yesterday is drinking only water or liquids, she says she cannot eat because of her nausea We started her on antiemetic she is still unable to eat food We are going to increase antiemetic dose however we are going to consult surgery team for further evaluation No other new complaints She is afebrile Lactic acid came back to reference range 1.5 and 1.6 Review of systems CONSTITUTIONAL: No fever, no malaise, no fatigue. HEENT: No recent visual problems or hearing problems. Denied any sore throat. CARDIOVASCULAR: No orthopnea, PND, no palpitations, no syncope. PULMONARY: No shortness of breath, no cough, no hemoptysis. GASTROINTESTINAL: No diarrhea, no nausea, no vomiting, no abdominal pain. Normoactive bowel sounds. Active Medications Generic Name Dose Route Start Last Admin Trade Name Freq PRN Reason Stop Dose Admin Acamprosate 666 mg 02/15/24 16:00 Acamprosate Calcium 333 Mg Tablet. PO TID STORMY Chlordiazepoxide HCl 20 mg 02/14/24 16:00 02/15/24 10:03 Chlordiazepoxide 10 Mg Cap PO 20 mg TID STORMY Administration Escitalopram Oxalate 20 mg 02/14/24 10:00 02/15/24 10:02 Escitalopram 20 Mg Tab PO 20 mg DAILY STORMY Administration Folic Acid 1 mg 02/15/24 09:00 02/15/24 10:02 Folic Acid 1 Mg Tab PO 1 mg DAILY STORMY Administration Heparin Sodium (Porcine) 5,000 unit 02/14/24 09:00 02/15/24 10:01 Heparin Sodium,Porcine 5,000 Unit/Ml 1 Ml Vial SQ 5,000 unit Q12HR STORMY Administration Dextrose/Water 1,000 mls @ 75 mls/hr 02/14/24 07:00 02/15/24 10:04 Dextrose 5%-Water Iv Soln IV 75 mls/hr .[id number] STORMY Administration Lamotrigine 100 mg 02/14/24 10:00 02/15/24 10:02 Lamotrigine 100 Mg Tab PO 100 mg DAILY STORMY Administration Levothyroxine Sodium 150 mcg 02/15/24 06:30 02/15/24 06:25 Levothyroxine 75 Mcg Tab PO 150 mcg DAILY@0630 STORMY Administration Lorazepam 2 mg 02/13/24 22:35 Lorazepam 2 Mg/Ml Inj IV 02/15/24 22:35 Q10M PRN CIWA 16 or higher Lorazepam 1 mg 02/13/24 22:35 02/14/24 15:23 Lorazepam 2 Mg/Ml Inj IV 1 mg Q1HR PRN Administration CIWA 10 to 15 Lorazepam 1 mg 02/13/24 22:35 02/14/24 19:34 Lorazepam 2 Mg/Ml Inj IV 1 mg Q2HR PRN Administration CIWA 8 or 9 Metoprolol Tartrate 12.5 mg 02/14/24 21:00 02/15/24 10:02 Metoprolol Tartrate 12.5 Mg Tab PO 12.5 mg BID STORMY Administration Miscellaneous Information 1 each 02/14/24 06:24 Potassium Replacement Protocol 1 Each Misc MISCELLANE DAILY PRN Per Protocol Protocol Miscellaneous Information 1 each 02/14/24 06:24 Magnesium Replacement Protocol 1 Each Misc MISCELLANE DAILY PRN Per Protocol Protocol Naloxone HCl 0.2 mg 02/13/24 20:22 Naloxone 0.4 Mg/Ml 1 Ml Vial IV Q2M PRN Opioid Reversal Pantoprazole Sodium 40 mg 02/14/24 09:00 02/15/24 10:02 Pantoprazole 40 Mg/10 Ml Vial IVP 40 mg DAILY STORMY Administration Prochlorperazine Edisylate 10 mg 02/15/24 11:54 Prochlorperazine Inj 10 Mg/2 Ml Vial IVP Q6HR PRN Nausea And Vomiting Thiamine HCl 100 mg 02/14/24 09:00 02/15/24 10:03 Thiamine 100 Mg Tab PO 100 mg DAILY STORMY Administration Trazodone HCl 150 mg 02/14/24 21:00 02/14/24 20:38 Trazodone Hcl 50 Mg Tab PO 150 mg HS STORMY Administration Objective - Vital Signs Vital signs: Vital Signs Temp 98.6 F 02/15/24 07:39 Pulse 62 02/15/24 07:39 Resp 18 02/15/24 07:39 BP 146/82 02/15/24 07:39 Pulse Ox 96 02/15/24 07:39 FiO2 Intake & Output 02/14/24 02/15/24 02/15/24 18:59 06:59 18:59 Output Total 700 Balance -700 Output: Urine 700 Other: Voiding Method External Catheter External Catheter External Catheter # Voids 5 - Exam GENERAL: The patient is alert and oriented x3, not in any acute distress. Well developed, well nourished. HEENT: Pupils are round and equally reacting to light. EOMI. No scleral icterus. No conjunctival pallor. Normocephalic, atraumatic. No pharyngeal erythema. No thyromegaly. CARDIOVASCULAR: S1 and S2 present. No murmurs, rubs, or gallops. PULMONARY: Chest is clear to auscultation, no wheezing , no crackles. ABDOMEN: Soft, nontender, nondistended, normoactive bowel sounds. No palpable organomegaly. MUSCULOSKELETAL: No joint swelling or deformity. EXTREMITIES: No cyanosis, clubbing, or pedal edema. NEUROLOGICAL: Gross neurological examination did not reveal any focal deficits. SKIN: No rashes. no petechiae. 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 Continue with diet and consult surgery team with patient and able to eat Continue with CI WA protocol, continue with thiamine Psychiatric consult Continue with IV hydration Labs and medication were reviewed.. Continue same treatment. Continue with symptomatic treatment. Resume home medication. Monitor labs and vitals. DVT and GI prophylaxis. Further recommendations as per clinical course of the patient DVT prophylaxis: Subcutaneous heparin GI Prophylaxis: Pepcid PT/OT: Pending Prognosis is guarded
--- NOTE | 2024-02-15 15:51 | P.GSCN ---
History of Present Illness Consult date: 02/15/24 History of present illness: CHIEF COMPLAINT: Drinking hand chemical packager HISTORY OF PRESENT ILLNESS: This is a 63-year-old female with history of alcohol disorder. She ingested possibly 32 ounces of hand chemical packager per ER report at home. Patient lying in bed comfortably. No complaints. She does report a decreased appetite. Surgical consult placed due to ingestion of hand chemical packager. PAST MEDICAL HISTORY: History of goiter with thyroidectomy, hypertension, history of drug overdose, alcoholism, PAST SURGICAL HISTORY: Thyroidectomy MEDICATIONS: See below ALLERGIES: See below SOCIAL HISTORY: No illicit drug use. Heavy alcohol use. REVIEW OF SYSTEMS: CONSTITUTIONAL: Denies fever or chills. HEENT: Denies blurred vision, vision changes, or eye pain. Denies hemoptysis CARDIOVASCULAR: Denies chest pain or pressure. RESPIRATORY: No shortness of breath. GASTROINTESTINAL: See HPI for pertinent findings HEMATOLOGIC: Denies bleeding disorders. GENITOURINARY: Denies any blood in urine or increased urinary frequency. SKIN: Denies pruitis. Denies rash. PHYSICAL EXAM: VITAL SIGNS: Reviewed GENERAL: Well-developed in no acute distress. HEENT: No sclera icterus. Extraocular movements grossly intact. Moist buccal mucosa. Head is atraumatic, normocephalic. No nasal drainage. ABDOMEN: Soft. Nondistended. Nontender NEUROLOGIC: Alert and oriented. Cranial nerves II through XII grossly intact. LABORATORY DATA: WBC 2.4 Hgb 11.8 platelets 217 Sodium 145 potassium 3.6 creatinine 0.56 Lactic acid 2.1 down to 1.5 Magnesium 1.6 Mildly elevated LFTs Drug screen positive for benzos Alcohol level 417 IMAGING: ASSESSMENT: 1. Ingestion of hand chemical packager 2. Alcohol disorder PLAN: -Patient scheduled for EGD tomorrow with Dr. Apple -Keep patient n.p.o. after midnight -Continue Protonix Physician Used Equipment Sales Representative note has been reviewed by physician. Signing provider agrees with the documented findings, assessment, and plan of care. Past Medical History Past Medical History: Asthma, Cancer, Hypertension, Thyroid Disorder Additional Past Medical History / Comment(s): History of goiter status post thyroidectomy, questionable history of thyroid cancer although this is not raul r, bipolar disorder, depression, history of suicidal ideations, history of drug overdose, alcoholism, seasonal rhinitis, psoriasis, breast cysts, history of broken toes in the right foot, History of Any Multi-Drug Resistant Organisms: None Reported Past Surgical History: No Surgical Hx Reported Additional Past Surgical History / Comment(s): Thyroidectomy 1999, SKIN NEVI REMOVED Past Anesthesia/Blood Transfusion Reactions: Previous Problems w/ Anesthesia, Postoperative Nausea & Vomiting (PONV) Additional Past Anesthesia/Blood Transfusion Reaction / Comm: Lives in a house with two roommates. ETOH. Pt no longer has a drivers license- she has had 2 DUI's. 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 She is seen at [facility]. Past Psychological History: Anxiety, Bipolar, Depression Smoking Status: Never smoker Past Alcohol Use History: Abuse, Daily, Heavy Additional Past Alcohol Use History / Comment(s): Pt agrees she is an alcoholic for greater than 20 years and comes from a family hx of abuse. Past Drug Use History: None Reported Additional Drug Use History / Comment(s): patient reports drinking 1 pint a day - Past Family History Father Family Medical History: Cancer Additional Family Medical History / Comment(s): Father at age 64 of esophageal cancer. Father was an alcoholic and had cirrhosis of the liver. Mother Family Medical History: Cancer Additional Family Medical History / Comment(s): Mother of breast cancer at age 42yrs. Medications and Allergies Home Medications Medication Instructions Recorded Confirmed Type Escitalopram [Lexapro] 20 mg PO DAILY 30 Days #30 tab 10/06/23 02/13/24 Rx Levothyroxine Sodium [Synthroid] 150 mcg PO DAILY 30 Days #30 tab 10/06/23 02/13/24 Rx lamoTRIgine [LaMICtal] 100 mg PO DAILY 30 Days #30 tab 10/06/23 02/13/24 Rx traZODone HCL 150 mg PO HS 30 Days #30 tablet 10/06/23 02/13/24 Rx Metoprolol Tartrate [Lopressor] 12.5 mg PO BID 11/18/23 02/13/24 History Pantoprazole [Protonix] 40 mg PO AC-BID #60 tab 12/29/23 02/13/24 Rx Folic Acid 1 mg PO DAILY tab 01/08/24 02/13/24 Rx Thiamine [Vitamin B-1] 100 mg PO DAILY tab 01/08/24 02/13/24 Rx Multivitamins, Thera [Multivitamin 1 cap PO DAILY 01/23/24 02/13/24 History (formulary)] Allergies Allergy/AdvReac Type Severity Reaction Status Date / Time clindamycin Allergy Unknown Rash/Hives Verified 02/13/24 20:32 acetylcysteine AdvReac Anaphylaxis Verified 02/13/24 20:32 [From Mucomyst] citalopram [From Celexa] AdvReac Hallucinati Verified 02/13/24 20:32 ons diphenhydramine HCl AdvReac Rapid Verified 02/13/24 20:32 [From Benadryl] Heart Rate Surgical - Exam Vital Signs Temp Pulse Resp BP Pulse Ox 98.2 F 73 18 124/82 93 L 02/13/24 17:34 02/13/24 17:34 02/13/24 17:34 02/13/24 17:34 02/13/24 17:34 Results - Labs 02/14/24 08:42 02/14/24 08:42 Abnormal Lab Results - Last 24 Hours (Table) 02/14/24 Range/Units 08:42 Osmolality 331 A* (275-295) mOsm/kg
[2024-02-15] MEDS: ACAMPROSATE CALCIUM 333 MG TABLET.DR PO SCH (16:13)
[2024-02-15] MEDS: ACETAMINOPHEN TAB 325 MG TAB PO PRN (16:38)
[2024-02-16 08:56] LABS: Basophils # (A) 0.03 X 10*3/uL (0.00-0.10); Eosinophils # (A) 0.18 X 10*3/uL (0.04-0.35); Eosinophils % (A) 6.3 %; HCT 36.7 % (37.2-46.3); HGB 12.3 g/dL (12.0-15.0); Lymphocytes # (A) 0.69 X 10*3/uL (0.90-5.00); MCH 33.1 pg (27.0-32.0); MCHC 33.5 g/dL (32.0-37.0); MCV 98.7 FL (80.0-97.0); Mean Platelet Volume 10.6 FL (9.5-12.2); Monocytes # (A) 0.32 X 10*3/uL (0.20-1.00); Monocytes % (A) 11.1 %; NRBC Per 100 WBC 0 X 10*3/uL (0.00-0.01); Neutrophils # (A) 1.64 X 10*3/uL (1.80-7.70); Neutrophils % (A) 56.9 %; Platelet Count 211 X 10*3/uL (140-440); RBC 3.72 X 10*6/uL (4.10-5.20); RDW 15.2 % (11.5-14.5); WBC 2.88 X 10*3/uL (4.50-10.00)
[2024-02-16 09:04] LABS: BUN/Creat Ratio 9.57 Ratio (12.00-20.00); Blood Urea Nitrogen 6.7 mg/dL (9.0-27.0); Calcium 9.4 mg/dL (8.7-10.3); Carbon Dioxide 23.5 mmol/L (21.6-31.8); Chloride 96 mmol/L (96-109); Glucose 116 mg/dL (70-110); Potassium 3.5 mmol/L (3.5-5.5); Sodium 135 mmol/L (135-145)
[2024-02-16] MEDS: IV FLUID CONTINUATION 1,000 ML IV ONE (12:08)
--- NOTE | 2024-02-16 12:23 | P.OP ---
Date of Procedure: 02/16/24 Preoperative Diagnosis: dysphagia Postoperative Diagnosis: mild esophagitis Mild antral gastritis Procedure(s) Performed: EGD Anesthesia: MAC Surgeon: Jefe Apple Pathology: other (antrum, esophagus) Condition: stable Disposition: PACU Description of Procedure: the patient's placed on the endoscopy table in the lateral position. She received IV sedation. The gastro-/oropharynx passed in the esophagus into the stomach. Scope was placed through the pylorus. The first and second portion of the duodenum appeared normal. Scope was then brought back the antrum this. Mildly inflamed. A biopsies performed. Scope was unretrretroflexed and the remainder of theters stomach appeared normal. The GE junction was at 40 cm per the distal esophagus appeared mildly inflamed. A biopsies was performed.scope was withdrawn for patient.
--- NOTE | 2024-02-16 22:00 | P.PN ---
Subjective This is a pleasant 63 years old female with past medical history of multiple medical problems, including history of alcohol use disorder for many years. Presents yesterday for suspected consumption of hand sanitizers and alcohol abuse as per documented records However when I talked to the patient she states that she cannot remember how she came to the hospital but she was drinking a lot yesterday. Patient is awake oriented to time place and person, partially she is disoriented to time. She does not remember yesterday when she came to the hospital but she follows command Yesterday patient was drinking vodka liquor (called 5 oclock) as per pt she drinks 1 to 2 pints but she denies smoking or illicit drugs However yesterday she was using hairspray for drinking as a substitute because she lost her credit card and the same thing about 1 week ago when she was using hand order make up clerk consume his alcohol consumption as a substitute for alcohol When asked the patient she denies intention to kill herself or commit suicide and she says it was not an accident. The last thing she remembers that she passed out at home from drinking too much and the next thing she remembers she is in her current room. Currently she is awake alert and oriented to time place person, she knows she is in the hospital and the name of the hospital and the date except patient throughout this 2022 and the name of the president. She looks withdrawn but she denies chest pain or dyspnea. She is coughing frequently No abdominal discomfort or vomiting or diarrhea. She denies urinary complaint. She has difficulty walking because of her drinking habits. And does mention about she wants to go to rehab because she got tired of her drinking habits Patient also has a history of bipolar disorder and she was taking Lamictal for this purpose, she confirms to me For seizure and she does not have history of seizure No dizziness but she has mild headache She denies depression or suicidal ideation No nausea vomiting no vision problems or slurred speech However patient is very shaky and nauseated but there is no vomiting She is complaining also from right hip pain for the last 2 years, she denies recent fall, she fell about 2 weeks ago with no residual pain or effect as she describes She is hemodynamically stable Labs showing mild leukopenia 3.3 and 2.4, rest of CBC is unremarkable, hide sodium 149 improved down to 145 today. Liver enzymes mildly elevated, slightly worse today Rest of BMP is unremarkable. Mildly elevated lactic acid at 2.4 Urine drug screen is positive for benzodiazepine Serum alcohol was elevated at 417 on admission Acetaminophen less than 10 and salicylate less than 1 EKG showing sinus rhythm at [address]-T changes Patient currently on CIWA protocol and thiamine 02/15/2024 Patient is awake and alert, no significant withdrawal symptoms. No chest pain or abdominal pain However patient since yesterday is drinking only water or liquids, she says she cannot eat because of her nausea We started her on antiemetic she is still unable to eat food We are going to increase antiemetic dose however we are going to consult surgery team for further evaluation No other new complaints She is afebrile Lactic acid came back to reference range 1.5 and 1.6 Review of systems CONSTITUTIONAL: No fever, no malaise, no fatigue. HEENT: No recent visual problems or hearing problems. Denied any sore throat. CARDIOVASCULAR: No orthopnea, PND, no palpitations, no syncope. PULMONARY: No shortness of breath, no cough, no hemoptysis. GASTROINTESTINAL: No diarrhea, no nausea, no vomiting, no abdominal pain. Normoactive bowel sounds. Active Medications Generic Name Dose Route Start Last Admin Trade Name Freq PRN Reason Stop Dose Admin Acamprosate 666 mg 02/15/24 16:00 Acamprosate Calcium 333 Mg Tablet. PO TID STORMY Chlordiazepoxide HCl 20 mg 02/14/24 16:00 02/15/24 10:03 Chlordiazepoxide 10 Mg Cap PO 20 mg TID STORMY Administration Escitalopram Oxalate 20 mg 02/14/24 10:00 02/15/24 10:02 Escitalopram 20 Mg Tab PO 20 mg DAILY STORMY Administration Folic Acid 1 mg 02/15/24 09:00 02/15/24 10:02 Folic Acid 1 Mg Tab PO 1 mg DAILY STORMY Administration Heparin Sodium (Porcine) 5,000 unit 02/14/24 09:00 02/15/24 10:01 Heparin Sodium,Porcine 5,000 Unit/Ml 1 Ml Vial SQ 5,000 unit Q12HR STORMY Administration Dextrose/Water 1,000 mls @ 75 mls/hr 02/14/24 07:00 02/15/24 10:04 Dextrose 5%-Water Iv Soln IV 75 mls/hr .[id number] STORMY Administration Lamotrigine 100 mg 02/14/24 10:00 02/15/24 10:02 Lamotrigine 100 Mg Tab PO 100 mg DAILY STORMY Administration Levothyroxine Sodium 150 mcg 02/15/24 06:30 02/15/24 06:25 Levothyroxine 75 Mcg Tab PO 150 mcg DAILY@0630 STORMY Administration Lorazepam 2 mg 02/13/24 22:35 Lorazepam 2 Mg/Ml Inj IV 02/15/24 22:35 Q10M PRN CIWA 16 or higher Lorazepam 1 mg 02/13/24 22:35 02/14/24 15:23 Lorazepam 2 Mg/Ml Inj IV 1 mg Q1HR PRN Administration CIWA 10 to 15 Lorazepam 1 mg 02/13/24 22:35 02/14/24 19:34 Lorazepam 2 Mg/Ml Inj IV 1 mg Q2HR PRN Administration CIWA 8 or 9 Metoprolol Tartrate 12.5 mg 02/14/24 21:00 02/15/24 10:02 Metoprolol Tartrate 12.5 Mg Tab PO 12.5 mg BID STORMY Administration Miscellaneous Information 1 each 02/14/24 06:24 Potassium Replacement Protocol 1 Each Misc MISCELLANE DAILY PRN Per Protocol Protocol Miscellaneous Information 1 each 02/14/24 06:24 Magnesium Replacement Protocol 1 Each Misc MISCELLANE DAILY PRN Per Protocol Protocol Naloxone HCl 0.2 mg 02/13/24 20:22 Naloxone 0.4 Mg/Ml 1 Ml Vial IV Q2M PRN Opioid Reversal Pantoprazole Sodium 40 mg 02/14/24 09:00 02/15/24 10:02 Pantoprazole 40 Mg/10 Ml Vial IVP 40 mg DAILY STORMY Administration Prochlorperazine Edisylate 10 mg 02/15/24 11:54 Prochlorperazine Inj 10 Mg/2 Ml Vial IVP Q6HR PRN Nausea And Vomiting Thiamine HCl 100 mg 02/14/24 09:00 02/15/24 10:03 Thiamine 100 Mg Tab PO 100 mg DAILY STORMY Administration Trazodone HCl 150 mg 02/14/24 21:00 02/14/24 20:38 Trazodone Hcl 50 Mg Tab PO 150 mg HS STORMY Administration Objective - Vital Signs Vital signs: Vital Signs Temp 98.2 F 02/16/24 06:55 Pulse 54 L 02/16/24 06:55 Resp 16 02/16/24 08:00 BP 120/71 02/16/24 06:55 Pulse Ox 97 02/16/24 06:55 FiO2 Intake & Output 02/15/24 02/16/24 02/16/24 18:59 06:59 18:59 Output Total 1700 600 Balance -1700 -600 Output: Urine 1700 600 Other: Voiding Method External Catheter External Catheter External Catheter - Exam GENERAL: The patient is alert and oriented x3, not in any acute distress. Well developed, well nourished. HEENT: Pupils are round and equally reacting to light. EOMI. No scleral icterus. No conjunctival pallor. Normocephalic, atraumatic. No pharyngeal erythema. No thyromegaly. CARDIOVASCULAR: S1 and S2 present. No murmurs, rubs, or gallops. PULMONARY: Chest is clear to auscultation, no wheezing , no crackles. ABDOMEN: Soft, nontender, nondistended, normoactive bowel sounds. No palpable organomegaly. MUSCULOSKELETAL: No joint swelling or deformity. EXTREMITIES: No cyanosis, clubbing, or pedal edema. NEUROLOGICAL: Gross neurological examination did not reveal any focal deficits. SKIN: No rashes. no petechiae. - Labs CBC & Chem 7: 02/16/24 04:24 02/16/24 04:24 Labs: Abnormal Lab Results - Last 24 Hours (Table) 02/16/24 02/16/24 Range/Units 04: 04:24 WBC 2.88 L (4.50-10.00) X 10*3/uL RBC 3.72 L (4.10-5.20) X 10*6/uL Hct 36.7 L (37.2-46.3) % MCV 98.7 H (80.0-97.0) FL MCH 33.1 H (27.0-32.0) pg RDW 15.2 H (11.5-14.5) % Neutrophils # 1.64 L (1.80-7.70) X 10*3/uL Lymphocytes # 0.69 L (0.90-5.00) X 10*3/uL Anion Gap 15.50 H (4.00-12.00) mmol/L BUN 6.7 L (9.0-27.0) mg/dL BUN/Creatinine Ratio 9.57 L (12.00-20.00) Ratio Glucose 116 H (70-110) mg/dL Assessment and Plan Assessment: alcohol Intoxication at risk of alcohol withdrawal. No evidence of alcohol withdrawal Substance ingestion of hairspray, patient admits drinking hand order make up clerk, she consumed the substances as a substitute for alcohol rather than for suicidal attempt. Nausea vomiting with difficulty eating, rule out dysphagia. Status post EGD showing mild gastritis and esophagitis Depression with no suicidal ideation Transaminitis, stable and improving Fall about 2 weeks ago, without syncope Mildly elevated lactic acid Chronic right hip pain Hypothyroidism Bipolar Plan: Patient s/p EGD showing mild disease. Continue with antiacid Advance diet as tolerated. No evidence of significant alcohol withdrawal patient tolerates diet Continue with Compazine as other medication like Reglan and Zofran have drug drug interaction. Continue with diet and consult surgery team with patient and able to eat Continue with CI WA protocol, continue with thiamine Psychiatric consult Continue with IV hydration Labs and medication were reviewed.. Continue same treatment. Continue with symptomatic treatment. Resume home medication. Monitor labs and vitals. DVT and GI prophylaxis. Further recommendations as per clinical course of the patient DVT prophylaxis: Subcutaneous heparin GI Prophylaxis: Pepcid PT/OT: Pending Prognosis is guarded at possible discharge Tomorrow to [facility] if she keeps improving
[2024-02-17 08:00] VITALS: BP 117/74; PULSE 61; RESP 16; TEMP 97.9
[2024-02-17 09:01] LABS: African American GFR (CKD) 88 (>60 ml/min/1.73 sqM); Anion Gap 5 mmol/L; Blood Urea Nitrogen 9 mg/dL (7-17); Calcium 9.8 mg/dL (8.4-10.2); Carbon Dioxide 28 mmol/L (22-30); Chloride 99 mmol/L (98-107); Glucose 102 mg/dL (74-99); Non-African American GFR(CKD) 77 (>60 ml/min/1.73 sqM); Potassium 3.7 mmol/L (3.5-5.1); Sodium 132 mmol/L (137-145)
--- NOTE | 2024-02-17 12:44 | P.PN ---
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 Patient denies any abdominal pain. She is tolerating diet. She is planning to be discharged to [facility] today. PHYSICAL EXAM: VITAL SIGNS: Reviewed. GENERAL: Well-developed in no acute distress. ABDOMEN: Soft. Nondistended. Nontender. NEUROLOGIC: Alert and oriented. Cranial nerves II through XII grossly intact. ASSESSMENT: 1. 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 Alcohol disorder PLAN: -Patient tolerating diet. Patient can be discharge from surgical standpoint. Continue PPI at discharge Physician Necktie Stitcher note has been reviewed by physician. Signing provider agrees with the documented findings, assessment, and plan of care. Objective - Vital Signs Vital signs: Vital Signs Temp 97.9 F 02/17/24 07:05 Pulse 61 02/17/24 07:05 Resp 16 02/17/24 07:05 BP 117/74 02/17/24 07:05 Pulse Ox 93 L 02/17/24 08:29 FiO2 Intake & Output 02/16/24 02/17/24 02/17/24 18:59 06:59 18:59 Intake Total 250 Balance 250 Intake: IV 50 Oral 200 Other: Voiding Method Toilet Toilet # Voids 3 1 - Labs CBC & Chem 7: 02/16/24 04:24 02/17/24 07:29 Labs: Abnormal Lab Results - Last 24 Hours (Table) 02/17/24 Range/Units 07:29 Sodium 132 L (137-145) mmol/L Glucose 102 H (74-99) mg/dL
== END 2024-02-17 11:40 | disposition other institution (70) | DRG 775 ==
LOC: EC 17:25 → 4SSUR 20:24
PROVIDERS: ADMIT Hospitalist; ATTEND Hospitalist
PROC: HZ2ZZZZ Detoxification Services for Substance Abuse Treatment (ICD-10-PCS; principal; 2024-02-13)
PROC: 0DB38ZX Excision of Lower Esophagus, Via Natural or Artificial Opening Endoscopic, Diagnostic (ICD-10-PCS; 2024-02-13)
PROC: 0DB78ZX Excision of Stomach, Pylorus, Via Natural or Artificial Opening Endoscopic, Diagnostic (ICD-10-PCS; 2024-02-13)
DX: F10.229 Alcohol dependence with intoxication, unspecified (principal); F10.239 Alcohol dependence with withdrawal, unspecified; M25.551 Pain in right hip; E87.20 Acidosis, unspecified; L40.8 Other psoriasis; T55.1X1A Toxic effect of detergents, accidental (unintentional), initial encounter; F31.81 Bipolar II disorder; F41.9 Anxiety disorder, unspecified; G89.29 Other chronic pain; Y90.8 Blood alcohol level of 240 mg/100 ml or more; Z56.0 Unemployment, unspecified; K20.90 Esophagitis, unspecified without bleeding; K29.70 Gastritis, unspecified, without bleeding; F13.10 Sedative, hypnotic or anxiolytic abuse, uncomplicated; E03.9 Hypothyroidism, unspecified; Z79.890 Hormone replacement therapy; I10 Essential (primary) hypertension; J45.909 Unspecified asthma, uncomplicated; Z63.72 Alcoholism and drug addiction in family; Z79.899 Other long term (current) drug therapy; Z88.1 Allergy status to other antibiotic agents; X58.XXXA Exposure to other specified factors, initial encounter
CPT/HCPCS: 36415; 43239; 71046; 80048; 80053; 80076; 80143; 80179; 80306; 80320; 82009; 82803; 83605; 83735; 83930; 85025; 93005; 94760; 96361; 96374; 99285

== ENCOUNTER 2024-03-08 00:09 | Observation (INO) | payer OTHER ==
--- NOTE | 2024-03-08 00:42 | ED ---
Alcohol HPI - General Chief Complaint: Alcohol Stated Complaint: ETOH Time Seen by Provider: 03/08/24 00:17 Source: patient, EMS Mode of arrival: EMS Limitations: no limitations - History of Present Illness Initial Comments: This patient is a 63-year-old woman who presents with complaint that she feels very sick related to drinking. The patient states that she had been a daily drinker and then had gone to rehab at [facility]. She states that she had been in there for 2 weeks and then was able to go 2 days without drinking then tonight she drank a pint of alcohol. She reports feeling very sick, meaning nauseated. She was having vomiting as well until EMS had given ondansetron. No hematemesis noted or coffee-ground emesis. 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) Previous Visits for Alcohol Intoxication?: Yes Recent Trauma: No Associated Symptoms: nausea, vomiting Chronic Alcohol Use: Yes - Related Data Previous Rx's Medication Instructions Recorded Acamprosate Calcium [Campral] 666 mg PO TID 30 Days #90 tab 02/17/24 Acetaminophen Tab [Tylenol] 325 mg PO Q6HR PRN tab 02/17/24 Escitalopram [Lexapro] 20 mg PO DAILY 30 Days #30 tab 02/17/24 Folic Acid 1 mg PO DAILY #30 tab 02/17/24 Levothyroxine Sodium [Synthroid] 150 mcg PO DAILY 30 Days #30 tab 02/17/24 Melatonin 10 mg PO HS PRN 30 Days #30 tab 02/17/24 Metoprolol Tartrate [Lopressor] 12.5 mg PO BID #60 tab 02/17/24 Multivitamins, Thera [Multivitamin 1 cap PO DAILY #30 tab 02/17/24 (formulary)] Pantoprazole [Protonix] 40 mg PO AC-BID #60 tab 02/17/24 Thiamine [Vitamin B-1] 100 mg PO DAILY #30 tab 02/17/24 chlordiazePOXIDE HCl [Librium] 10 mg PO DIRECTED 3 Days #6 02/17/24 capsule lamoTRIgine [LaMICtal] 100 mg PO DAILY #30 tab 02/17/24 Allergies Allergy/AdvReac Type Severity Reaction Status Date / Time clindamycin Allergy Unknown Rash/Hives Verified 03/08/24 00:25 acetylcysteine AdvReac Anaphylaxis Verified 03/08/24 00:25 [From Mucomyst] citalopram [From Celexa] AdvReac Hallucinati Verified 03/08/24 00:25 ons diphenhydramine HCl AdvReac Rapid Verified 03/08/24 00:25 [From Benadryl] Heart Rate Review of Systems ROS Statement: Those systems with pertinent positive or pertinent negative responses have been documented in the HPI. ROS Other: All systems not noted in ROS Statement are negative. Constitutional: Denies: fever, chills Respiratory: Denies: cough, dyspnea Cardiovascular: Denies: chest pain, palpitations, edema Gastrointestinal: Reports: nausea, vomiting. Denies: abdominal pain, diarrhea, hematemesis, melena, hematochezia Genitourinary: Denies: dysuria, frequency, hematuria Musculoskeletal: Denies: back pain Skin: Denies: rash Neurological: Denies: headache, weakness, numbness Past Medical History Past Medical History: Asthma, Cancer, Hypertension, Thyroid Disorder Additional Past Medical History / Comment(s): History of goiter status post thyroidectomy, questionable history of thyroid cancer although this is not clear, bipolar disorder, depression, history of suicidal ideations, history of drug overdose, alcoholism, seasonal rhinitis, psoriasis, breast cysts, history of broken toes in the right foot, History of Any Multi-Drug Resistant Organisms: None Reported Past Surgical History: No Surgical Hx Reported Additional Past Surgical History / Comment(s): Thyroidectomy 1999, SKIN NEVI REMOVED Past Anesthesia/Blood Transfusion Reactions: Previous Problems w/ Anesthesia, Postoperative Nausea & Vomiting (PONV) Additional Past Anesthesia/Blood Transfusion Reaction / Comment(s): Lives in a house with two roommates. ETOH. Pt no longer has a drivers license- she has had 2 DUI's. 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 She is seen at [facility]. Past Psychological History: Anxiety, Bipolar, Depression Smoking Status: Never smoker Past Alcohol Use History: Abuse, Daily, Heavy Past Drug Use History: None Reported - Past Family History Father Family Medical History: Cancer Additional Family Medical History / Comment(s): Father at age 64 of esophageal cancer. Father was an alcoholic and had cirrhosis of the liver. Mother Family Medical History: Cancer Additional Family Medical History / Comment(s): Mother of breast cancer at age 42yrs. General Exam Limitations: no limitations General appearance: alert, in no apparent distress, appears intoxicated Head exam: Present: atraumatic, normocephalic Eye exam: Present: normal appearance. Absent: scleral icterus, conjunctival injection ENT exam: Present: normal oropharynx Neck exam: Present: normal inspection Respiratory exam: Present: normal lung sounds bilaterally. Absent: respiratory distress, wheezes, rales, rhonchi, stridor Cardiovascular Exam: Present: regular rate, normal rhythm, normal heart sounds. Absent: systolic murmur, diastolic murmur, rubs, gallop GI/Abdominal exam: Present: soft. Absent: distended, tenderness, guarding, rebound, rigid, mass Extremities exam: Present: normal inspection, normal capillary refill. Absent: pedal edema, calf tenderness Back exam: Present: normal inspection. Absent: CVA tenderness (R), CVA tenderness (L) Neurological exam: Present: alert Skin exam: Present: warm, dry, intact, normal color. Absent: rash Course Vital Signs 03/08/24 00:13 Temperature 98.4 F Pulse Rate 88 Respiratory 16 Rate Blood Pressure 128/79 O2 Sat by Pulse 97 Oximetry Medical Decision Making - EKG Data -: EKG Interpreted by [facility] EKG shows normal: sinus rhythm, intervals (Normal), QRS complexes (Possible old anterior infarct.) Rate: normal (Rate 87 bpm) Interpretation: [facility] Disposition Referrals: None,Stated [Primary Care Provider] - 1-2 days
[2024-03-08 01:30] LABS: Basophils # (A) 0.1 k/uL (0-0.2); Basophils % (A) 1 %; Eosinophils # (A) 0.1 k/uL (0-0.7); Eosinophils % (A) 2 %; HCT 40.7 % (34.0-46.0); HGB 13.5 gm/dL (11.4-16.0); Lymphocytes # (A) 1.4 k/uL (1.0-4.8); Lymphocytes % (A) 26 %; MCH 32.7 pg (25.0-35.0); MCHC 33.2 g/dL (31.0-37.0); MCV 98.7 fL (80.0-100.0); Mean Platelet Volume 9.2; Monocytes # (A) 0.3 k/uL (0-1.0); Monocytes % (A) 6 %; Neutrophils # (A) 3.3 k/uL (1.3-7.7); Neutrophils % (A) 62 %; Platelet Count 253 k/uL (150-450); RBC 4.12 m/uL (3.80-5.40); RDW 14.6 % (11.5-15.5); WBC 5.3 k/uL (3.8-10.6)
[2024-03-08 01:40] LABS: ALT 61 U/L (4-34); AST 67 U/L (14-36); African American GFR (CKD) >90 (>60 ml/min/1.73 sqM); Albumin 4.4 g/dL (3.5-5.0); Alkaline Phosphatase 54 U/L (38-126); Anion Gap 17 mmol/L; Blood Urea Nitrogen 13 mg/dL (7-17); Calcium 9.1 mg/dL (8.4-10.2); Carbon Dioxide 22 mmol/L (22-30); Chloride 105 mmol/L (98-107); Glucose 81 mg/dL (74-99); Non-African American GFR(CKD) >90 (>60 ml/min/1.73 sqM); Potassium 4.2 mmol/L (3.5-5.1); Sodium 144 mmol/L (137-145); Total Bilirubin 0.6 mg/dL (0.2-1.3); Total Protein 7.3 g/dL (6.3-8.2)
[2024-03-08 01:52] LABS: Alcohol 344 mg/dL
[2024-03-08] MEDS ORDERED: NALOXONE 0.4 MG/ML 1 ML VIAL IV PRN (03:22)
[2024-03-08] MEDS ORDERED: LORazepam 2 MG/ML INJ IV PRN ×3 (03:23→17:14)
[2024-03-08] MEDS: SODIUM CHLORIDE 0.9% 1,000 ML IV SCH (03:41)
[2024-03-08] MEDS: LORazepam 2 MG/ML INJ IV PRN ×2 (05:03→11:41)
[2024-03-08] MEDS: HEPARIN SODIUM,PORCINE 5,000 UNIT/ML 1 ML VIAL SQ SCH (10:19)
[2024-03-08] MEDS: FAMOTIDINE 20 MG/2 ML VIAL IV SCH (10:19)
--- NOTE | 2024-03-08 12:20 | P.HPIM ---
History of Present Illness 63-year-old female came in for alcohol intoxication patient was recently discharged from the [facility] and did drink a pint of hard liquor every single day since she was discharged from the hospital. Patient is actively having withdrawals with shaking and tachycardia at this time. Patient denies abdominal pain nausea vomiting. Patient is willing to try and quit alcohol again as it is messing her life up. REVIEW OF SYSTEMS: CONSTITUTIONAL: No fever, no malaise, no fatigue. HEENT: No recent visual problems or hearing problems. Denied any sore throat. CARDIOVASCULAR: No chest pain, orthopnea, PND, no palpitations, no syncope. PULMONARY: No shortness of breath, no cough, no hemoptysis. GASTROINTESTINAL: No diarrhea, no nausea, no vomiting, no abdominal pain. NEUROLOGICAL: No headaches, no weakness, no numbness. HEMATOLOGICAL: Denies any bleeding or petechiae. GENITOURINARY: Denies any burning micturition, frequency, or urgency. MUSCULOSKELETAL/RHEUMATOLOGICAL: Denies any joint pain, swelling, or any muscle pain. ENDOCRINE: Denies any polyuria or polydipsia. The rest of the 14-point review of systems is negative. PHYSICAL EXAMINATION: GENERAL: The patient is alert and oriented x3, not in any acute distress. Well developed, well nourished. HEENT: Pupils are round and equally reacting to light. EOMI. No scleral icterus. No conjunctival pallor. Normocephalic, atraumatic. No pharyngeal erythema. No thyromegaly. CARDIOVASCULAR: S1 and S2 present. No murmurs, rubs, or gallops. PULMONARY: Chest is clear to auscultation, no wheezing or crackles. ABDOMEN: Soft, nontender, nondistended, normoactive bowel sounds. No palpable organomegaly. MUSCULOSKELETAL: No joint swelling or deformity. EXTREMITIES: No cyanosis, clubbing, or pedal edema. NEUROLOGICAL: Gross neurological examination did not reveal any focal deficits. SKIN: No rashes. Assessment and plan -Alcohol withdrawal: Patient will be started on Librium scheduled along with as needed Ativan Protonix and thiamine. Patient will be on WA protocol -Hypertension -Hypothyroidism -Mild acute alcoholic hepatitis -Alcohol dependence: Counseling was provided and social work will be consulted. DVT prophylaxis: Lovenox Past Medical History Past Medical History: Asthma, Cancer, Hypertension, Thyroid Disorder Additional Past Medical History / Comment(s): History of goiter status post thyroidectomy, questionable history of thyroid cancer although this is not clear, bipolar disorder, depression, history of suicidal ideations, history of drug overdose, alcoholism, seasonal rhinitis, psoriasis, breast cysts, history of broken toes in the right foot, History of Any Multi-Drug Resistant Organisms: None Reported Past Surgical History: No Surgical Hx Reported Additional Past Surgical History / Comment(s): Thyroidectomy 1999, SKIN NEVI REMOVED Past Anesthesia/Blood Transfusion Reactions: Previous Problems w/ Anesthesia, Postoperative Nausea & Vomiting (PONV) Additional Past Anesthesia/Blood Transfusion Reaction / Comment(s): Lives in a house with two roommates. ETOH. Pt no longer has a drivers license- she has raya d 2 DUI's. 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 She is seen at [facility]. Past Psychological History: Anxiety, Bipolar, Depression Smoking Status: Never smoker Past Alcohol Use History: Abuse, Daily, Heavy Past Drug Use History: None Reported - Past Family History Father Family Medical History: Cancer Additional Family Medical History / Comment(s): Father at age 64 of esophageal cancer. Father was an alcoholic and had cirrhosis of the liver. Mother Family Medical History: Cancer Additional Family Medical History / Comment(s): Mother of breast cancer at age 42yrs. Medications and Allergies Home Medications Medication Instructions Recorded Confirmed Type Acetaminophen Tab [Tylenol] 325 mg PO Q6HR PRN tab 02/17/24 03/08/24 Rx Escitalopram [Lexapro] 20 mg PO DAILY 30 Days #30 tab 02/17/24 03/08/24 Rx Folic Acid 1 mg PO DAILY #30 tab 02/17/24 03/08/24 Rx Levothyroxine Sodium [Synthroid] 150 mcg PO DAILY 30 Days #30 tab 02/17/24 03/08/24 Rx Melatonin 10 mg PO HS PRN 30 Days #30 tab 02/17/24 03/08/24 Rx Metoprolol Tartrate [Lopressor] 12.5 mg PO BID #60 tab 02/17/24 03/08/24 Rx Multivitamins, Thera [Multivitamin 1 cap PO DAILY #30 tab 02/17/24 03/08/24 Rx (formulary)] Pantoprazole [Protonix] 40 mg PO AC-BID #60 tab 02/17/24 03/08/24 Rx Thiamine [Vitamin B-1] 100 mg PO DAILY #30 tab 02/17/24 03/08/24 Rx lamoTRIgine [LaMICtal] 100 mg PO DAILY #30 tab 02/17/24 03/08/24 Rx Allergies Allergy/AdvReac Type Severity Reaction Status Date / Time clindamycin Allergy Unknown Rash/Hives Verified 03/08/24 08:00 acetylcysteine AdvReac Anaphylaxis Verified 03/08/24 08:00 [From Mucomyst] citalopram [From Celexa] AdvReac Hallucinati Verified 03/08/24 08:00 ons diphenhydramine HCl AdvReac Rapid Verified 03/08/24 08:00 [From Benadryl] Heart Rate Physical Exam Vitals: Vital Signs Temp Pulse Resp BP Pulse Ox 03/08/24 06:00 75 16 113/72 96 03/08/24 04:00 79 18 121/76 97 03/08/24 02:30 75 16 120/82 94 L 03/08/24 00:13 98.4 F 88 16 128/79 97 Intake and Output 03/07/24 03/08/24 03/08/24 22:59 06:59 14:59 Other: Weight 77.111 kg Results CBC & Chem 7: 03/08/24 00:34 03/08/24 00:34 Labs: Abnormal Lab Results - Last 24 Hours (Table) 03/08/24 Range/Units 00:34 AST 67 H (14-36) U/L ALT 61 H (4-34) U/L Serum Alcohol 344 H* mg/dL
[2024-03-08] MEDS: ESCITALOPRAM 20 MG TAB PO SCH (12:56)
[2024-03-08] MEDS: ENOXAPARIN 40 MG/0.4 ML SYRINGE SQ SCH (13:35)
[2024-03-08] MEDS: chlordiazePOXIDE 25 MG CAP PO SCH (16:14)
[2024-03-08] MEDS: LORazepam 1 MG/0.5 ML VIAL ONE (16:59)
[2024-03-08] MEDS: ACETAMINOPHEN TAB 325 MG TAB PO PRN (17:11)
[2024-03-08] MEDS ORDERED: LORazepam 1 MG/0.5 ML VIAL IV PRN ×2 (17:14→17:15)
[2024-03-08] MEDS: METOPROLOL TARTRATE 12.5 MG TAB PO SCH (20:59)
[2024-03-08] MEDS: LORazepam 1 MG/0.5 ML VIAL IV PRN (20:59)
[2024-03-09] MEDS ORDERED: THIAMINE 100 MG TAB PO SCH (09:00)
[2024-03-09] MEDS: LEVOTHYROXINE 75 MCG TAB PO SCH (09:00)
[2024-03-09] MEDS: lamoTRIgine 100 MG TAB PO SCH (09:01)
[2024-03-09] MEDS: THIAMINE 100 MG TAB PO SCH (09:01)
[2024-03-09] MEDS: FOLIC ACID 1 MG TAB PO SCH (09:01)
[2024-03-09 13:16] VITALS: BP 148/91; PULSE 57; RESP 18; TEMP 98.6
--- NOTE | 2024-03-12 12:51 | P.DS ---
Providers Date of admission: 03/08/24 03:22 Expected date of discharge: 03/09/24 Attending physician: Chris Tiwari Primary care physician: Stated None Hospital Course: Final diagnosis -Acute alcohol intoxication with alcohol withdrawal -Hypertension -Hypothyroidism -Mild acute alcoholic hepatitis -Alcohol dependence: Counseling was provided and patient not currently willing to quit drinking -DVT prophylaxis -GI prophylaxis -Full code Discharge disposition Patient is being discharged in a stable condition with guarded prognosis to home. Patient will follow-up with PCP to establish in the outpatient setting upon discharge. Patient is to continue with Librium taper and close outpatient follow-up with [facility] as scheduled. Total time taken is greater than 35 minutes. Hospital course This is a 63-year-old female who was recently admitted with acute alcohol intoxication with acute alcohol withdrawal being closely monitored on CIWA protocol. Patient was also started on Librium taper and is doing well not requiring much Ativan. Patient reports to feeling improved and would like to go home. Patient has been up and walking frequently in the halls and gait has been steady. Patient to follow-up with [facility] outpatient. Patient currently does not have the desire to quit drinking although it was strongly suggested and encouraged. Patient will follow-up with [facility] outpatient. Resources also provided for patient to establish with a primary care provider. Currently no reports of chest pain, shortness of breath, or palpitations. Patient is afebrile. No reports of nausea or vomiting and patient is tolerating diet. Patient will be discharged home today. High risk for readmissions as patient is extremely noncompliant and continues to drink alcohol with no desire to quit. Physical exam: Gen: This is a 63-year-old female who is awake, alert and oriented x 3, well- developed, well-nourished, elderly appearing HEENT: Head is atraumatic, normocephalic. Pupils equal, round. Sclerae is anicteric. NECK: Supple. No JVD. No lymphadenopathy. No thyromegaly. LUNGS: Clear to auscultation. No wheezes or rhonchi. No intercostal retractions. HEART: Regular rate and rhythm. No murmur. ABDOMEN: Soft. Obese. Bowel sounds are present. No masses. No tenderness. EXTREMITIES: No pedal edema. No calf tenderness. NEUROLOGICAL: Patient is awake, alert and oriented x3. Cranial nerves 2 through 12 are grossly intact. Please refer to medication reconciliation sheet for a list of medications. The impression and plan of care has been dictated by Mikayla Dumont, Nurse Practitioner as directed. Dr. Ashutosh MD I have performed a history and examination and MDM of this patient, discussed the same with the dictator, and agree with the dictator's assessment and plan as written ,documented as a scribe. Based on total visit time, I have performed more than 50% of the visit. Patient Condition at Discharge: Fair Plan - Discharge Summary Discharge Rx Participant: No New Discharge Prescriptions: New chlordiazePOXIDE HCl [Librium] 50 mg PO TID #14 cap Continue Folic Acid 1 mg PO DAILY #30 tab Escitalopram [Lexapro] 20 mg PO DAILY 30 Days #30 tab Multivitamins, Thera [Multivitamin (formulary)] 1 cap PO DAILY #30 tab Pantoprazole [Protonix] 40 mg PO AC-BID #60 tab Levothyroxine Sodium [Synthroid] 150 mcg PO DAILY 30 Days #30 tab Melatonin 10 mg PO HS PRN 30 Days #30 tab PRN Reason: Insomnia Acetaminophen Tab [Tylenol] 325 mg PO Q6HR PRN tab PRN Reason: Fever And/ Or Pain Metoprolol Tartrate [Lopressor] 12.5 mg PO BID #60 tab Thiamine [Vitamin B-1] 100 mg PO DAILY #30 tab lamoTRIgine [LaMICtal] 100 mg PO DAILY #30 tab Discharge Medication List Acetaminophen Tab [Tylenol] 325 mg PO Q6HR PRN tab 02/17/24 [Rx] Escitalopram [Lexapro] 20 mg PO DAILY 30 Days #30 tab 02/17/24 [Rx] Folic Acid 1 mg PO DAILY #30 tab 02/17/24 [Rx] Levothyroxine Sodium [Synthroid] 150 mcg PO DAILY 30 Days #30 tab 02/17/24 [Rx] Melatonin 10 mg PO HS PRN 30 Days #30 tab 02/17/24 [Rx] Metoprolol Tartrate [Lopressor] 12.5 mg PO BID #60 tab 02/17/24 [Rx] Multivitamins, Thera [Multivitamin (formulary)] 1 cap PO DAILY #30 tab 02/17/24 [Rx] Pantoprazole [Protonix] 40 mg PO AC-BID #60 tab 02/17/24 [Rx] Thiamine [Vitamin B-1] 100 mg PO DAILY #30 tab 02/17/24 [Rx] lamoTRIgine [LaMICtal] 100 mg PO DAILY #30 tab 02/17/24 [Rx] chlordiazePOXIDE HCl [Librium] 50 mg PO TID #14 cap 03/09/24 [Rx] Follow up Appointment(s)/Referral(s): Fatimah Caraballo MD [STAFF PHYSICIAN] - 1 Week Patient Instructions/Handouts: Chlordiazepoxide (By mouth) Activity/Diet/Wound Care/Special Instructions: Activity limited until follow-up Follow-up with primary care provider to reestablish Continue taking medications as prescribed Avoid all alcohol intake and exposure Do not take Librium while using alcohol Discharge/Stand Alone Forms: AA Meetings [facility], Who Do I Call?, Community Resources, Outpatient Counseling, Inp Substance Abuse Facilities Discharge Disposition: HOME SELF-CARE
== END 2024-03-09 16:27 | disposition home or self-care (01) ==
LOC: EC 00:09 → 6NMEDSUR 03:22 → 5NMEDONC 11:41
PROVIDERS: ADMIT Hospitalist; ATTEND Hospitalist
DX: F10.239 Alcohol dependence with withdrawal, unspecified (principal); F10.229 Alcohol dependence with intoxication, unspecified; K70.10 Alcoholic hepatitis without ascites; I10 Essential (primary) hypertension; E89.0 Postprocedural hypothyroidism; Z79.890 Hormone replacement therapy; Z79.899 Other long term (current) drug therapy; Z88.1 Allergy status to other antibiotic agents; Z88.8 Allergy status to other drugs, medicaments and biological substances; Z71.41 Alcohol abuse counseling and surveillance of alcoholic; Y90.8 Blood alcohol level of 240 mg/100 ml or more; Z91.199 Patient's noncompliance with other medical treatment and regimen due to unspecified reason
CPT/HCPCS: 96376 ×3; 96372; 96375; 96374; 99285; 36415; 80053; 85025; 80320; G0378 ×3; J2060; J1650; J3490 ×2

== ENCOUNTER 2024-03-17 20:34 | Emergency (ER) | payer OTHER ==
[2024-03-17 21:17] VITALS: TEMP 97.9
[2024-03-17] MEDS: SODIUM CHLORIDE 0.9% 1,000 ML IV ONE (21:18)
--- NOTE | 2024-03-17 21:20 | ED ---
General Adult HPI - General Chief complaint: Alcohol Stated complaint: Alcohol withdrawal Time Seen by Provider: 03/17/24 20:57 Source: patient, EMS, RN notes reviewed, old records reviewed Mode of arrival: EMS Limitations: no limitations - History of Present Illness Initial comments: 63-year-old female with history of alcohol abuse presenting with nausea. Patient was seen in the emergency department earlier today with same complaint. She states she did go home and drink. She has had multiple admissions over the past several months and has spent time in alcohol rehabilitation. - Related Data Previous Rx's Medication Instructions Recorded Acetaminophen Tab [Tylenol] 325 mg PO Q6HR PRN tab 02/17/24 Escitalopram [Lexapro] 20 mg PO DAILY 30 Days #30 tab 02/17/24 Folic Acid 1 mg PO DAILY #30 tab 02/17/24 Levothyroxine Sodium [Synthroid] 150 mcg PO DAILY 30 Days #30 tab 02/17/24 Melatonin 10 mg PO HS PRN 30 Days #30 tab 02/17/24 Metoprolol Tartrate [Lopressor] 12.5 mg PO BID #60 tab 02/17/24 Multivitamins, Thera [Multivitamin 1 cap PO DAILY #30 tab 02/17/24 (formulary)] Pantoprazole [Protonix] 40 mg PO AC-BID #60 tab 02/17/24 Thiamine [Vitamin B-1] 100 mg PO DAILY #30 tab 02/17/24 lamoTRIgine [LaMICtal] 100 mg PO DAILY #30 tab 02/17/24 chlordiazePOXIDE HCl [Librium] 50 mg PO TID #14 cap 03/09/24 Allergies Allergy/AdvReac Type Severity Reaction Status Date / Time clindamycin Allergy Unknown Rash/Hives Verified 03/16/24 11:32 acetylcysteine AdvReac Anaphylaxis Verified 03/16/24 11:32 [From Mucomyst] citalopram [From Celexa] AdvReac Hallucinati Verified 03/16/24 11:32 ons diphenhydramine HCl AdvReac Rapid Verified 03/16/24 11:32 [From Benadryl] Heart Rate Review of Systems ROS Statement: Those systems with pertinent positive or pertinent negative responses have been documented in the HPI. ROS Other: All systems not noted in ROS Statement are negative. Past Medical History Past Medical History: Asthma, Cancer, Hypertension, Thyroid Disorder Additional Past Medical History / Comment(s): History of goiter status post thyroidectomy, questionable history of thyroid cancer although this is not clear, bipolar disorder, depression, history of suicidal ideations, history of drug overdose, alcoholism, seasonal rhinitis, psoriasis, breast cysts, history of broken toes in the right foot, History of Any Multi-Drug Resistant Organisms: None Reported Past Surgical History: No Surgical Hx Reported Additional Past Surgical History / Comment(s): Thyroidectomy 1999, SKIN NEVI REMOVED Past Anesthesia/Blood Transfusion Reactions: Previous Problems w/ Anesthesia, Postoperative Nausea & Vomiting (PONV) Additional Past Anesthesia/Blood Transfusion Reaction / Comment(s): Lives in a house with two roommates. ETOH. Pt no longer has a drivers license- she has had 2 DUI's. 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 She is seen at [facility]. Past Psychological History: Anxiety, Bipolar, Depression Smoking Status: Never smoker Past Alcohol Use History: Abuse, Daily, Heavy Past Drug Use History: None Reported - Past Family History Father Family Medical History: Cancer Additional Family Medical History / Comment(s): Father at age 64 of esophageal cancer. Father was an alcoholic and had cirrhosis of the liver. Mother Family Medical History: Cancer Additional Family Medical History / Comment(s): Mother of breast cancer at age 42yrs. General Exam Limitations: no limitations General appearance: alert, in no apparent distress, appears intoxicated Head exam: Present: atraumatic, normocephalic Eye exam: Present: normal appearance, PERRL ENT exam: Present: mucous membranes dry Neck exam: Present: normal inspection. Absent: tenderness, meningismus Respiratory exam: Present: normal lung sounds bilaterally. Absent: respiratory distress, wheezes Cardiovascular Exam: Present: regular rate, normal rhythm GI/Abdominal exam: Present: soft. Absent: distended, tenderness Extremities exam: Present: normal inspection, normal capillary refill Neurological exam: Present: alert, oriented X3, CN II-XII intact. Absent: motor sensory deficit Psychiatric exam: Present: anxious Skin exam: Present: warm, dry, intact Course Vital Signs 03/17/24 03/17/24 03/18/24 20:36 23:00 00:00 Temperature 97.9 F Pulse Rate 89 96 113 H Respiratory 16 18 19 Rate Blood Pressure 135/91 141/120 136/55 O2 Sat by Pulse 98 96 95 Oximetry 03/18/24 02:00 Temperature Pulse Rate 102 H Respiratory 19 Rate Blood Pressure 126/88 O2 Sat by Pulse 94 L Oximetry Medical Decision Making - Medical Decision Making Was pt. sent in by a medical professional or institution (, [facility], [employer], urgent care, hospital, or correction...) When possible be specific @ -No Did you speak to anyone other than the patient for history (EMS, parent, family, police, friend...)? What history was obtained from this source @ -No Did you review nursing and triage notes (agree or disagree)? Why? @ -I reviewed and agree with nursing and triage notes Were old charts reviewed (outside hosp., previous admission, EMS record, old EK G, old radiological studies, urgent care reports/EKG's, correction records)? Report findings @ -No old charts were reviewed Differential Diagnosis alcohol intoxication, alcohol withdrawal, nausea vomiting secondary to alcohol abuse EKG interpreted by me (3pts min.). @ -As above X-rays interpreted by me (1pt min.). @ -None done CT interpreted by me (1pt min.). @ -None done U/S interpreted by me (1pt. min.). @ -None done What testing was considered but not performed or refused? (CT, X-rays, U/S, labs)? Why? @ -None What meds were considered but not given or refused? Why? @ -None Did you discuss the management of the patient with other professionals (professionals i.e. , [facility], [employer], lab, RT, psych nurse, licensed master social worker, feed mixer, teacher, landing signal officer, egg caser)? Give summary @ -No Was smoking cessation discussed for >3mins.? @ -No Was critical care preformed (if so, how long)? @ -No Were there social determinants of health that impacted care today? How? (Homelessness, low income, unemployed, alcoholism, drug addiction, transportation, low edu. Level, literacy, decrease access to med. care, penitentiary, rehab)? @ -No Was there de-escalation of care discussed even if they declined (Discuss DNR or withdrawal of care, Hospice)? DNR status @ -No What co-morbidities impacted this encounter? (DM, HTN, Smoking, COPD, CAD, Cancer, CVA, ARF, Chemo, Hep., AIDS, mental health diagnosis, sleep apnea, morbid obesity)? @Alcohol abuse Was patient admitted / discharged? Hospital course, mention meds given and route, prescriptions, significant lab abnormalities, going to OR and other pertinent info. @ -63-year-old female presenting with alcohol intoxication, nausea. I did obtain IV access and check blood test including CBC, CMP, and alcohol level, patient has normal CBC, normal CMP, alcohol level 269. She is observed in the emergency department with no further vomiting. Patient clinically sober, willing to attempt outpatient rehabilitation. Undiagnosed new problem with uncertain prognosis? @ -No Drug Therapy requiring intensive monitoring for toxicity (Heparin, Nitro, Insulin, Cardizem)? @ -No Were any procedures done? @ -No Diagnosis/symptom? @Alcohol intoxication Acute, or Chronic, or Acute on Chronic? @ -[Acute on chronic Uncomplicated (without systemic symptoms) or Complicated (systemic symptoms)? @ -Default Side effects of treatment? @ -No Exacerbation, Progression, or Severe Exacerbation? @ -No Poses a threat to life or bodily function? How? (Chest pain, USA, AR, pneumonia, PE, COPD, DKA, ARF, appy, cholecystitis, CVA, Diverticulitis, Homicidal, S uicidal, threat to staff... and all critical care pts) @ -Low risk at this time - Lab Data Result diagrams: 03/17/24 21:32 03/17/24 21:32 Lab Results 03/17/24 03/17/24 Range/Units 21:32 21:32 WBC 4.5 (3.8-10.6) k/uL RBC 3.97 (3.80-5.40) m/uL Hgb 12.7 (11.4-16.0) gm/dL Hct 39.3 (34.0-46.0) % MCV 99.1 (80.0-100.0) fL MCH 32.1 (25.0-35.0) pg MCHC 32.4 (31.0-37.0) g/dL RDW 14.7 (11.5-15.5) % Plt Count 169 (150-450) k/uL MPV 9.1 Neutrophils % 70 % Lymphocytes % 20 % Monocytes % 6 % Eosinophils % 2 % Basophils % 1 % Neutrophils # 3.1 (1.3-7.7) k/uL Lymphocytes # 0.9 L (1.0-4.8) k/uL Monocytes # 0.2 (0-1.0) k/uL Eosinophils # 0.1 (0-0.7) k/uL Basophils # 0.0 (0-0.2) k/uL Sodium 143 (137-145) mmol/L Potassium 4.7 (3.5-5.1) mmol/L Chloride 109 H (98-107) mmol/L Carbon Dioxide 24 (22-30) mmol/L Anion Gap 10 mmol/L BUN 11 (7-17) mg/dL Creatinine 0.52 (0.52-1.04) mg/dL Est GFR (CKD-EPI)AfAm >90 (>60 ml/min/1.73 sqM) Est GFR (CKD-EPI)NonAf >90 (>60 ml/min/1.73 sqM) Glucose 89 (74-99) mg/dL Calcium 8.4 (8.4-10.2) mg/dL Magnesium 1.6 (1.6-2.3) mg/dL Total Bilirubin 0.3 (0.2-1.3) mg/dL AST 87 H (14-36) U/L ALT 81 H (4-34) U/L Alkaline Phosphatase 54 (38-126) U/L Total Protein 6.9 (6.3-8.2) g/dL Albumin 4.0 (3.5-5.0) g/dL Serum Alcohol 236 H* mg/dL Disposition Clinical Impression: Alcoholism /alcohol abuse Disposition: HOME SELF-CARE Condition: Fair Instructions (If sedation given, give patient instructions): Alcohol Intoxication (ED) Is patient prescribed a controlled substance at d/c from ED?: No Referrals: [facility] [Primary Care Provider] - 1-2 days Time of Disposition: 02:30
[2024-03-17 22:21] LABS: Basophils % (A) 1 %; Eosinophils # (A) 0.1 k/uL (0-0.7); Eosinophils % (A) 2 %; HCT 39.3 % (34.0-46.0); HGB 12.7 gm/dL (11.4-16.0); Lymphocytes # (A) 0.9 k/uL (1.0-4.8); Lymphocytes % (A) 20 %; MCH 32.1 pg (25.0-35.0); MCHC 32.4 g/dL (31.0-37.0); MCV 99.1 fL (80.0-100.0); Mean Platelet Volume 9.1; Monocytes # (A) 0.2 k/uL (0-1.0); Monocytes % (A) 6 %; Neutrophils # (A) 3.1 k/uL (1.3-7.7); Neutrophils % (A) 70 %; Platelet Count 169 k/uL (150-450); RBC 3.97 m/uL (3.80-5.40); RDW 14.7 % (11.5-15.5); WBC 4.5 k/uL (3.8-10.6)
[2024-03-17 22:34] LABS: ALT 81 U/L (4-34); AST 87 U/L (14-36); African American GFR (CKD) >90 (>60 ml/min/1.73 sqM); Alkaline Phosphatase 54 U/L (38-126); Anion Gap 10 mmol/L; Blood Urea Nitrogen 11 mg/dL (7-17); Calcium 8.4 mg/dL (8.4-10.2); Carbon Dioxide 24 mmol/L (22-30); Chloride 109 mmol/L (98-107); Glucose 89 mg/dL (74-99); Magnesium 1.6 mg/dL (1.6-2.3); Non-African American GFR(CKD) >90 (>60 ml/min/1.73 sqM); Potassium 4.7 mmol/L (3.5-5.1); Sodium 143 mmol/L (137-145); Total Bilirubin 0.3 mg/dL (0.2-1.3); Total Protein 6.9 g/dL (6.3-8.2)
[2024-03-17 23:09] LABS: Alcohol 236 mg/dL
[2024-03-18] MEDS: diazePAM 5 MG TAB PO STA ×2 (00:03→02:16)
[2024-03-18 01:02] VITALS: RESP 19
[2024-03-18] MEDS: ONDANSETRON 4 MG/2 ML VIAL IVP STA ×2 (01:50)
[2024-03-18 04:06] VITALS: BP 126/88; PULSE 102
== END 2024-03-18 02:23 | disposition home or self-care (01) ==
LOC: EC 20:34
DX: F10.229 Alcohol dependence with intoxication, unspecified (principal); Y90.8 Blood alcohol level of 240 mg/100 ml or more; Z88.1 Allergy status to other antibiotic agents; Z88.8 Allergy status to other drugs, medicaments and biological substances
CPT/HCPCS: 36415; 80053; 83735; 85025; 80320; 99283; 96374; 96375; 96361 ×3; J2405

== ENCOUNTER 2024-03-18 07:28 | Observation (INO) | payer MEDICARE, OTHER ==
--- NOTE | 2024-03-18 07:35 | ED ---
General Adult HPI - General Stated complaint: Detox Time Seen by Provider: 03/18/24 07:28 Source: patient, RN notes reviewed, old records reviewed - History of Present Illness Initial comments: This is a 63-year-old female who has been seen in the emergency department 2 days ago and yesterday and again today for alcohol intoxication. Patient states she is throwing up and she wants to stop throwing up. Patient states she wants to stop drinking but she does not take herself to rehab. Patient denies any chest pain difficulty breathing shortness of breath. Patient denies abdominal pain only nausea and vomiting. Patient denies any back pain. Patient has any fever chills or cough - Related Data Previous Rx's Medication Instructions Recorded Acetaminophen Tab [Tylenol] 325 mg PO Q6HR PRN tab 02/17/24 Escitalopram [Lexapro] 20 mg PO DAILY 30 Days #30 tab 02/17/24 Folic Acid 1 mg PO DAILY #30 tab 02/17/24 Levothyroxine Sodium [Synthroid] 150 mcg PO DAILY 30 Days #30 tab 02/17/24 Melatonin 10 mg PO HS PRN 30 Days #30 tab 02/17/24 Metoprolol Tartrate [Lopressor] 12.5 mg PO BID #60 tab 02/17/24 Multivitamins, Thera [Multivitamin 1 cap PO DAILY #30 tab 02/17/24 (formulary)] Pantoprazole [Protonix] 40 mg PO AC-BID #60 tab 02/17/24 Thiamine [Vitamin B-1] 100 mg PO DAILY #30 tab 02/17/24 lamoTRIgine [LaMICtal] 100 mg PO DAILY #30 tab 02/17/24 chlordiazePOXIDE HCl [Librium] 50 mg PO TID #14 cap 03/09/24 Allergies Allergy/AdvReac Type Severity Reaction Status Date / Time clindamycin Allergy Unknown Rash/Hives Verified 03/18/24 07:38 acetylcysteine AdvReac Anaphylaxis Verified 03/18/24 07:38 [From Mucomyst] citalopram [From Celexa] AdvReac Hallucinati Verified 03/18/24 07:38 ons diphenhydramine HCl AdvReac Rapid Verified 03/18/24 07:38 [From Benadryl] Heart Rate Review of Systems ROS Statement: Those systems with pertinent positive or pertinent negative responses have been documented in the HPI. ROS Other: All systems not noted in ROS Statement are negative. Past Medical History Past Medical History: Asthma, Cancer, Hypertension, Thyroid Disorder Additional Past Medical History / Comment(s): History of goiter status post thyroidectomy, questionable history of thyroid cancer although this is not clear, bipolar disorder, depression, history of suicidal ideations, history of drug overdose, alcoholism, seasonal rhinitis, psoriasis, breast cysts, history of broken toes in the right foot, History of Any Multi-Drug Resistant Organisms: None Reported Past Surgical History: No Surgical Hx Reported Additional Past Surgical History / Comment(s): Thyroidectomy 1999, SKIN NEVI REMOVED Past Anesthesia/Blood Transfusion Reactions: Previous Problems w/ Anesthesia, Postoperative Nausea & Vomiting (PONV) Additional Past Anesthesia/Blood Transfusion Reaction / Comment(s): Lives in a house with two roommates. ETOH. Pt no longer has a drivers license- she has had 2 DUI's. 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 She is seen at [facility]. Past Psychological History: Anxiety, Bipolar, Depression Smoking Status: Never smoker Past Alcohol Use History: Abuse, Daily, Heavy Past Drug Use History: None Reported - Past Family History Father Family Medical History: Cancer Additional Family Medical History / Comment(s): Father at age 64 of esophageal cancer. Father was an alcoholic and had cirrhosis of the liver. Mother Family Medical History: Cancer Additional Family Medical History / Comment(s): Mother of breast cancer at age 42yrs. General Exam - General Exam Comments Initial Comments: GENERAL: Patient is well-developed and well-nourished. Patient is nontoxic and well-h ydrated and is in mild distress. ENT: Neck is soft and supple. No significant lymphadenopathy is noted. Oropharynx is clear. Moist mucous membranes. Neck has full range of motion without eliciting any pain. EYES: The sclera were anicteric and conjunctiva were pink and moist. Extraocular mov ements were intact and pupils were equal round and reactive to light. Eyelids were unremarkable. PULMONARY: Unlabored respirations. Good breath sounds bilaterally. No audible rales rhonchi or wheezing was noted. CARDIOVASCULAR: There is a regular rate and rhythm without any murmurs gallops or rubs. ABDOMEN: Soft and nontender with normal bowel sounds. SKIN: Skin is clear with no lesions or rashes and otherwise unremarkable. NEUROLOGIC: Patient is alert and oriented x3. Cranial nerves II through XII are grossly intact. Motor and sensory are also intact. Normal speech, volume and content. Symmetrical smile. MUSCULOSKELETAL: Normal extremities with adequate strength and full range of motion. No lower extremity swelling or edema. No calf tenderness. LYMPHATICS: No significant lymphadenopathy is noted PSYCHIATRIC: Normal psychiatric evaluation. Course Vital Signs 03/18/24 03/18/24 07:36 09:15 Temperature 100.8 F H 99.4 F Pulse Rate 97 88 Respiratory 18 18 Rate Blood Pressure 138/88 137/94 O2 Sat by Pulse 97 94 L Oximetry Medical Decision Making - Medical Decision Making EKG is interpreted by myself. EKG is of very poor quality EKG is a sinus rhythm that is regular at 93 bpm QRS is 93 QT interval is 4 1 QTc is 452. CO interval is 120 Was pt. sent in by a medical professional or institution (, PA, CO CHAIRMAN, urgent care, hospital, or custodial...) When possible be specific @ -No Did you speak to anyone other than the patient for history (EMS, parent, family, police, friend...)? What history was obtained from this source @ -No Did you review nursing and triage notes (agree or disagree)? Why? @ -I reviewed and agree with nursing and triage notes Were old charts reviewed (outside hosp., previous admission, EMS record, old EKG, old radiological studies, urgent care reports/EKG's, custodial records)? Report findings @ -Alcohol intoxication, alcohol withdrawal, electrolyte abnormalities, bronchitis, urinary tract infection, viral infection is not an all-inclusive list Differential Diagnosis (chest pain, altered mental status, abdominal pain women, abdominal pain men, vaginal bleeding, weakness, fever, dyspnea, syncope, h eadache, dizziness, GI bleed, back pain, seizure, CVA, palpatations, mental health, musculoskeletal)? @ -Not applicable EKG interpreted by me (3pts min.). @ -As above X-rays interpreted by me (1pt min.). @ -Chest x-ray shows no acute abnormality CT interpreted by me (1pt min.). @ -None done U/S interpreted by me (1pt. min.). @ -None done What testing was considered but not performed or refused? (CT, X-rays, U/S, labs)? Why? @ -None What meds were considered but not given or refused? Why? @ -None Did you discuss the management of the patient with other professionals (professionals i.e. , PA, CO CHAIRMAN, lab, RT, psych nurse, social science research assistant, wafer line worker, teacher, correctional officer, case management associate)? Give summary @ -I spoke with [facility] he agreed admit the patient to the patient wrote admitting orders Was smoking cessation discussed for >3mins.? @ -No Was critical care preformed (if so, how long)? @ -No Were there social determinants of health that impacted care today? How? (Homelessness, low income, unemployed, alcoholism, drug addiction, transportation, low edu. Level, literacy, decrease access to med. care, [facility], rehab)? @ -No Was there de-escalation of care discussed even if they declined (Discuss DNR or withdrawal of care, Hospice)? DNR status @ -No What co-morbidities impacted this encounter? (DM, HTN, Smoking, COPD, CAD, Cancer, CVA, ARF, Chemo, Hep., AIDS, mental health diagnosis, sleep apnea, morbid obesity)? @ -None Was patient admitted / discharged? Hospital course, mention meds given and route, prescriptions, significant lab abnormalities, going to OR and other pertinent info. @ -Patient received a liter half-normal saline as well as magnesium in the emergency department. Patient had no source for the fever at this time. Patient will be admitted to [facility] I wrote admitting orders Undiagnosed new problem with uncertain prognosis? @ -No Drug Therapy requiring intensive monitoring for toxicity (Heparin, Nitro, Insulin, Cardizem)? @ -No Were any procedures done? @ -No Diagnosis/symptom? @ -Alcohol withdrawal Acute, or Chronic, or Acute on Chronic? @ -Acute Uncomplicated (without systemic symptoms) or Complicated (systemic symptoms)? @ -Complicated Side effects of treatment? @ -No Exacerbation, Progression, or Severe Exacerbation? @ -No Poses a threat to life or bodily function? How? (Chest pain, USA, MS, pneumonia, PE, COPD, DKA, ARF, appy, cholecystitis, CVA, Diverticulitis, Homicidal, Suicidal, threat to staff... and all critical care pts) @ -Yes this can lead to seizures and possible Diagnosis/symptom? @ -Fever of unknown origin Acute, or Chronic, or Acute on Chronic? @ -Acute Uncomplicated (without systemic symptoms) or Complicated (systemic symptoms)? @ -Complicated Side effects of treatment? @ -None Exacerbation, Progression, or Severe Exacerbation] @ -No Poses a threat to life or bodily function? @ -No Diagnosis/symptom? @ -Default Acute, or Chronic, or Acute on Chronic? @ -Acute Uncomplicated (without systemic symptoms) or Complicated (systemic symptoms)? @ -Complicated Side effects of treatment? @ -None Exacerbation, Progression, or Severe Exacerbation] @ -No Poses a threat to life or bodily function? @ -No - Lab Data Result diagrams: 03/18/24 07:57 03/18/24 07:57 Lab Results 03/18/24 03/18/24 03/18/24 Range/Units 07:57 07:57 07:57 WBC 4.1 (3.8-10.6) k/uL RBC 3.72 L (3.80-5.40) m/uL Hgb 12.1 (11.4-16.0) gm/dL Hct 36.6 (34.0-46.0) % MCV 98.4 (80.0-100.0) fL MCH 32.5 (25.0-35.0) pg MCHC 33.0 (31.0-37.0) g/dL RDW 14.7 (11.5-15.5) % Plt Count 155 (150-450) k/uL MPV 9.1 Neutrophils % 76 % Lymphocytes % 16 % Monocytes % 6 % Eosinophils % 0 % Basophils % 1 % Neutrophils # 3.1 (1.3-7.7) k/uL Lymphocytes # 0.6 L (1.0-4.8) k/uL Monocytes # 0.2 (0-1.0) k/uL Eosinophils # 0.0 (0-0.7) k/uL Basophils # 0.0 (0-0.2) k/uL Sodium 138 (137-145) mmol/L Potassium 4.0 (3.5-5.1) mmol/L Chloride 104 (98-107) mmol/L Carbon Dioxide 24 (22-30) mmol/L Anion Gap 10 mmol/L BUN 8 (7-17) mg/dL Creatinine 0.57 (0.52-1.04) mg/dL Est GFR (CKD-EPI)AfAm >90 (>60 ml/min/1.73 sqM) Est GFR (CKD-EPI)NonAf >90 (>60 ml/min/1.73 sqM) Glucose 93 (74-99) mg/dL Calcium 8.4 (8.4-10.2) mg/dL Magnesium 1.2 L (1.6-2.3) mg/dL Total Bilirubin 0.8 (0.2-1.3) mg/dL AST 81 H (14-36) U/L ALT 76 H (4-34) U/L Alkaline Phosphatase 58 (38-126) U/L Total Protein 7.0 (6.3-8.2) g/dL Albumin 4.1 (3.5-5.0) g/dL Urine Color Urine Appearance (Clear) Urine pH (5.0-8.0) Ur Specific [place] (1.001-1.035) Urine Protein (Negative) Urine Glucose (UA) (Negative) Urine Ketones (Negative) Urine Blood (Negative) Urine Nitrite (Negative) Urine Bilirubin (Negative) Urine Urobilinogen (<2.0) mg/dL Ur Leukocyte Esterase (Negative) Serum Alcohol <10 mg/dL Influenza Type A (PCR) Not Detected (Not Detectd) Influenza Type B (PCR) Not Detected (Not Detectd) RSV (PCR) Not Detected (Not Detectd) SARS-CoV-2 (PCR) Not Detected (Not Detectd) 03/18/24 Range/Units 09:00 WBC (3.8-10.6) k/uL RBC (3.80-5.40) m/uL Hgb (11.4-16.0) gm/dL Hct (34.0-46.0) % MCV (80.0-100.0) fL MCH (25.0-35.0) pg MCHC (31.0-37.0) g/dL RDW (11.5-15.5) % Plt Count (150-450) k/uL MPV Neutrophils % % Lymphocytes % % Monocytes % % Eosinophils % % Basophils % % Neutrophils # (1.3-7.7) k/uL Lymphocytes # (1.0-4.8) k/uL Monocytes # (0-1.0) k/uL Eosinophils # (0-0.7) k/uL Basophils # (0-0.2) k/uL Sodium (137-145) mmol/L Potassium (3.5-5.1) mmol/L Chloride (98-107) mmol/L Carbon Dioxide (22-30) mmol/L Anion Gap mmol/L BUN (7-17) mg/dL Creatinine (0.52-1.04) mg/dL Est GFR (CKD-EPI)AfAm (>60 ml/min/1.73 sqM) Est GFR (CKD-EPI)NonAf (>60 ml/min/1.73 sqM) Glucose (74-99) mg/dL Calcium (8.4-10.2) mg/dL Magnesium (1.6-2.3) mg/dL Total Bilirubin (0.2-1.3) mg/dL AST (14-36) U/L ALT (4-34) U/L Alkaline Phosphatase (38-126) U/L Total Protein (6.3-8.2) g/dL Albumin (3.5-5.0) g/dL Urine Color Yellow Urine Appearance Clear (Clear) Urine pH 7.0 (5.0-8.0) Ur Specific [place] 1.021 (1.001-1.035) Urine Protein Trace H (Negative) Urine Glucose (UA) Negative (Negative) Urine Ketones 1+ H (Negative) Urine Blood Negative (Negative) Urine Nitrite Negative (Negative) Urine Bilirubin Negative (Negative) Urine Urobilinogen <2.0 (<2.0) mg/dL Ur Leukocyte Esterase Negative (Negative) Serum Alcohol mg/dL Influenza Type A (PCR) (Not Detectd) Influenza Type B (PCR) (Not Detectd) RSV (PCR) (Not Detectd) SARS-CoV-2 (PCR) (Not Detectd) Disposition Clinical Impression: Hypomagnesemia, Alcohol withdrawal, Fever, unknown origin Disposition: ADMITTED IP TO THIS HOSP Referrals: [facility] [Primary Care Provider] - 1-2 days Time of Disposition: 09:59
[2024-03-18] MEDS: SODIUM CHLORIDE 0.9% 1,000 ML IV ONE ×2 (07:59→10:54)
[2024-03-18] MEDS: ACETAMINOPHEN TAB 500 MG TAB PO STA (08:02)
[2024-03-18] MEDS: droPERidol 5 MG/2 ML VIAL IVP ONE (08:03)
[2024-03-18 08:25] LABS: Basophils % (A) 1 %; Eosinophils % (A) 0 %; HCT 36.6 % (34.0-46.0); HGB 12.1 gm/dL (11.4-16.0); Lymphocytes # (A) 0.6 k/uL (1.0-4.8); Lymphocytes % (A) 16 %; MCH 32.5 pg (25.0-35.0); MCV 98.4 fL (80.0-100.0); Mean Platelet Volume 9.1; Monocytes # (A) 0.2 k/uL (0-1.0); Monocytes % (A) 6 %; Neutrophils # (A) 3.1 k/uL (1.3-7.7); Neutrophils % (A) 76 %; Platelet Count 155 k/uL (150-450); RBC 3.72 m/uL (3.80-5.40); RDW 14.7 % (11.5-15.5); WBC 4.1 k/uL (3.8-10.6)
[2024-03-18 08:32] LABS: ALT 76 U/L (4-34); AST 81 U/L (14-36); African American GFR (CKD) >90 (>60 ml/min/1.73 sqM); Albumin 4.1 g/dL (3.5-5.0); Alcohol <10 mg/dL; Alkaline Phosphatase 58 U/L (38-126); Anion Gap 10 mmol/L; Blood Urea Nitrogen 8 mg/dL (7-17); Calcium 8.4 mg/dL (8.4-10.2); Carbon Dioxide 24 mmol/L (22-30); Chloride 104 mmol/L (98-107); Glucose 93 mg/dL (74-99); Magnesium 1.2 mg/dL (1.6-2.3); Non-African American GFR(CKD) >90 (>60 ml/min/1.73 sqM); Sodium 138 mmol/L (137-145); Total Bilirubin 0.8 mg/dL (0.2-1.3)
--- NOTE | 2024-03-18 08:51 | XR ---
EXAMINATION TYPE: XR chest 2V DATE OF EXAM: 03/18/2024 COMPARISON: 02/14/2024 and prior PET/CT 03/04/2023 HISTORY: 63 year-old female shortness of breath, difficulty breathing TECHNIQUE: AP and lateral views FINDINGS: Heart upper limits of normal in size. Vascular prominence without consolidation or pleural effusion. 4 cm circumscribed mass right base is redemonstrated. Measured 3 cm on the prior PET/CT. IMPRESSION: 1. Interstitium is slightly prominent. Correlate to exclude mild pulmonary vascular congestion, bronc hitis, or asthma. However, no other acute process is seen. 2. Known mass at the right base. However, this appears larger compared to 03/04/2023 (4 cm now versus 3 cm, previously). The patient should continue to follow up with pulmonary medicine for appropriate s urveillance.
[2024-03-18] MEDS: SODIUM CHLORIDE 0.9% 500 ML 500 ML IV ONE (09:23)
[2024-03-18 09:28] LABS: Appearance,Urine Clear (Clear); Bilirubin,Urine Negative (Negative); Blood,Urine Negative (Negative); Color,Urine Yellow; Glucose,Urine (UA) Negative (Negative); Ketones,Urine 1+ (Negative); Leukocyte Esterase,Urine Negative (Negative); Nitrite,Urine Negative (Negative); Protein,Urine Trace (Negative); Specific Gravity,Urine 1.021 (1.001-1.035); Urobilinogen,Urine <2.0 mg/dL (<2.0)
[2024-03-18] MEDS: IBUPROFEN 600 MG TAB PO STA (09:28)
[2024-03-18] MEDS: MAGNESIUM SULFATE-D5W PMX 1 GM in DEXTROSE/WATER 1 100ML.BAG IVPB SCH ×2 (09:39→11:57)
[2024-03-18] MEDS ORDERED: LORazepam 1 MG TAB PO PRN ×2 (10:00)
[2024-03-18] MEDS ORDERED: LORazepam 1 MG/0.5 ML VIAL IV PRN (10:00)
[2024-03-18] MEDS ORDERED: LORazepam 2 MG/ML INJ IV PRN (10:00)
--- NOTE | 2024-03-18 10:02 | P.HPIM ---
History of Present Illness H&P Date: 03/18/24 History of presenting illness: Patient is a 63-year-old female with a past medical history of EtOH abuse, hypothyroidism status post thyroidectomy, depression, and bipolar disorder. Patient is very well-known to our services and hospital. She has had 18 visits and 11 hospitalizations since November of this year. Multiple attempts have been made to assist patient with placement in outpatient rehab, however patient adamantly declines stating rehab does not help. Patient reports to drinking approximately 2 pints of hard liquor daily. 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 Patient presented to the emergency department today secondary to symptoms of alcohol withdraw including significant tremors, anxiety, nausea, and vomiting. She reports her last drink of alcohol was yesterday evening and states that she came to the emergency department because she cannot stop vomiting and needs something to assist her with detox. She denies having any recent illnesses or exposure to known ill contacts, headache, lightheadedness, dizziness, cough or congestion, sore throat, chest pain, palpitations, shortness of breath, abdominal pain, having any changes and or difficulties with her urinary or bowel function. Patient admits to heavy drinking. She currently denies consuming hand medical claims processor within the last week and denies any other drug use including marijuana. Upon arrival to the emergency department, patient underwent evaluation. Vital signs upon arrival show blood pressure 138/88, heart rate 97, respiratory rate 18, temp 100.8 F, and SpO2 of 97% on room air. Labs were completed and reviewed. CBC unremarkable. BMP normal findings. Magnesium low at 1.2. Liver profile showing elevated AST of 81 and ALT of 76. TSH 18.600 and free T4 of 0.58. Serum alcohol level was negative at less than 10. Urinalysis was negative for infection. Influenza A, influenza B, RSV, and COVID PCR negative. EKG completed with moderate artifact secondary to patient's tremors but revealing sinus mechanism at 93 bpm. Chest x-ray showing interstitial slightly prominent and unable to exclude mild pulmonary vascular congestion, bronchitis, or asthma however negative for any other acute cardiopulmonary process. Chest x-ray also revealing known right lower lobe lung mass reported to increase in size from 3 cm up to 4 cm. Patient being admitted under our services for medical detox. Consultation placed to psychiatry for evaluation. Review of systems: Pertinent positives and negatives as discussed in HPI, a complete review of sy stems was performed and all other systems are negative. Physical exam: Vital signs reviewed and stable. General: Nontoxic, no distress and appears stated age. Derm: Skin warm and dry, normal coloration for ethnicity. Head: Atraumatic, normocephalic and symmetric. Eyes: EOMs intact, no lid lag, and anicteric sclera Mouth: no lip lesions, mucus membranes moist Cardiovascular: regular rate and rhythm with normal S1S2, no murmur, positive posterior tibial pulses bilaterally, and cap refill < 2 seconds. Lungs: Respirations even, regular, and unlabored on room air. Lungs CTA bilaterally, no rhonchi, no rales, no wheezing, and no accessory muscle usage. Abdominal: soft, nontender to palpation, no guarding, no appreciable organomegaly Ext: ROM intact. No gross muscle atrophy, no edema, no contractures Neuro: Speech clear, face symmetrical and CN II-XII grossly intact. Patient with moderate upper extremity tremors noted. Psych: Alert and oriented to person, place, time, and situation. Appropriate and pleasant affect. 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 -Continuous IV hydration. -Thiamine 100 mg twice a day -Multivitamin daily -Folate 1 mg daily -Seizure, fall, aspiration, and elopement precautions in place. -Urine drug screen -Continued close monitoring of electrolytes and replace as needed. -Telemetry monitoring. Hypothyroidism status post thyroidectomy -Continue daily medication regimen with the levothyroxine 150 g daily. -TSH elevated at 18.600 but improved from recent TSH drawn 11/04/2023 resulting at 43.600 and free T4 also low at 0.58 but improved from previous 0.46. -Would not recommend increasing patient's levothyroxine dose as it is highly suspected that patient is not taking medication as prescribed. Bipolar disorder Depression -Continue daily medication regimen with Lexapro 20 mg daily and Lamictal 100 mg daily. Previously known right lung mass X-ray showing increase in size from previous 3 cm up to 4 cm at this time. Recommend patient follow-up with pantry cook for appropriate surveillance and/or additional testing. Data and imaging reviewed: As stated above in HPI CODE STATUS: Full code DVT prophylaxis: Lovenox Discussed with: Patient and RN Anticipated discharge date: Clinical course to determine Anticipated discharge place: Home Patient was seen independently by Nurse Pracitioner. This document was prepared using Glomera dictation software. Please allow for errors in assistant manager bilingual, while rare they do occur. I reviewed the documentation as provided by the CURTIS above, who is the original author of this note. I agree with the documented assessment and plan, with the following changes: none Past Medical History Past Medical History: Asthma, Cancer, Hypertension, Thyroid Disorder Additional Past Medical History / Comment(s): History of goiter status post thyroidectomy, questionable history of thyroid cancer although this is not clear, bipolar disorder, depression, history of suicidal ideations, history of drug overdose, alcoholism, seasonal rhinitis, psoriasis, breast cysts, history of broken toes in the right foot, History of Any Multi-Drug Resistant Organisms: None Reported Past Surgical History: No Surgical Hx Reported Additional Past Surgical History / Comment(s): Thyroidectomy 1999, SKIN NEVI REMOVED Past Anesthesia/Blood Transfusion Reactions: Previous Problems w/ Anesthesia, Postoperative Nausea & Vomiting (PONV) Additional Past Anesthesia/Blood Transfusion Reaction / Comment(s): Lives in a house with two roommates. ETOH. Pt no longer has a drivers license- she has had 2 DUI's. 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 She is seen at [facility]. Past Psychological History: Anxiety, Bipolar, Depression Smoking Status: Never smoker Past Alcohol Use History: Abuse, Daily, Heavy Past Drug Use History: None Reported - Past Family History Father Family Medical History: Cancer Additional Family Medical History / Comment(s): Father at age 64 of esophageal cancer. Father was an alcoholic and had cirrhosis of the liver. Mother Family Medical History: Cancer Additional Family Medical History / Comment(s): Mother of breast cancer at age 42yrs. Medications and Allergies Home Medications Medication Instructions Recorded Confirmed Type Acetaminophen Tab [Tylenol] 325 mg PO Q6HR PRN tab 02/17/24 03/18/24 Rx Escitalopram [Lexapro] 20 mg PO DAILY 30 Days #30 tab 02/17/24 03/18/24 Rx Folic Acid 1 mg PO DAILY #30 tab 02/17/24 03/18/24 Rx Levothyroxine Sodium [Synthroid] 150 mcg PO DAILY 30 Days #30 tab 02/17/24 03/18/24 Rx Melatonin 10 mg PO HS PRN 30 Days #30 tab 02/17/24 03/18/24 Rx Metoprolol Tartrate [Lopressor] 12.5 mg PO BID #60 tab 02/17/24 03/18/24 Rx Multivitamins, Thera [Multivitamin 1 cap PO DAILY #30 tab 02/17/24 03/18/24 Rx (formulary)] Pantoprazole [Protonix] 40 mg PO AC-BID #60 tab 02/17/24 03/18/24 Rx Thiamine [Vitamin B-1] 100 mg PO DAILY #30 tab 02/17/24 03/18/24 Rx lamoTRIgine [LaMICtal] 100 mg PO DAILY #30 tab 02/17/24 03/18/24 Rx Allergies Allergy/AdvReac Type Severity Reaction Status Date / Time clindamycin Allergy Unknown Rash/Hives Verified 03/18/24 11:12 acetylcysteine AdvReac Anaphylaxis Verified 03/18/24 11:12 [From Mucomyst] citalopram [From Celexa] AdvReac Hallucinati Verified 03/18/24 11:12 ons diphenhydramine HCl AdvReac Rapid Verified 03/18/24 11:12 [From Benadryl] Heart Rate Physical Exam Vitals: Vital Signs Temp Pulse Resp BP Pulse Ox 03/18/24 09:15 99.4 F 88 18 137/94 94 L 03/18/24 07:36 100.8 F H 97 18 138/88 97 Intake and Output 03/17/24 03/18/24 03/18/24 22:59 06:59 14:59 Other: Weight 77.111 kg Results CBC & Chem 7: 03/19/24 04:36 03/19/24 04:36 Labs: Abnormal Lab Results - Last 24 Hours (Table) 03/18/24 03/18/24 03/18/24 Range/Units 07:57 07:57 09:00 RBC 3.72 L (3.80-5.40) m/uL Lymphocytes # 0.6 L (1.0-4.8) k/uL Magnesium 1.2 L (1.6-2.3) mg/dL AST 81 H (14-36) U/L ALT 76 H (4-34) U/L Urine Protein Trace H (Negative) Urine Ketones 1+ H (Negative)
[2024-03-18] MEDS ORDERED: MELATONIN 5 MG TABLET PO PRN (10:03)
[2024-03-18] MEDS: LORazepam 1 MG TAB PO PRN (10:48)
[2024-03-18] MEDS: THIAMINE 100 MG/ML 2 ML VIAL IM STA (10:55)
[2024-03-18 11:49] LABS: T4, Free (Free Thyroxine) 0.58 ng/dL (0.78-2.19)
[2024-03-18] MEDS: LEVOTHYROXINE 75 MCG TAB PO SCH (12:00)
[2024-03-18] MEDS: FOLIC ACID 1 MG TAB PO SCH (12:01)
[2024-03-18] MEDS: METOPROLOL TARTRATE 25 MG TAB PO SCH (12:01)
[2024-03-18] MEDS: lamoTRIgine 100 MG TAB PO SCH (12:02)
[2024-03-18] MEDS: ESCITALOPRAM 20 MG TAB PO SCH (12:02)
[2024-03-18] MEDS: PANTOPRAZOLE 40 MG TABLET PO SCH (12:02)
[2024-03-18] MEDS: MULTIVITAMINS, THERA 1 EACH TAB PO SCH (12:14)
[2024-03-18] MEDS ORDERED: PROCHLORPERAZINE INJ 10 MG/2 ML VIAL IVP PRN (16:21)
[2024-03-18] MEDS: LORazepam 0.5 MG TAB PO PRN (21:40)
[2024-03-19] MEDS: THIAMINE 100 MG TAB PO SCH (08:10)
[2024-03-19 09:13] LABS: HCT 36.7 % (37.2-46.3); MCHC 32.7 g/dL (32.0-37.0); MCV 97.9 FL (80.0-97.0); Mean Platelet Volume 11.5 FL (9.5-12.2); NRBC Per 100 WBC 0 X 10*3/uL (0.00-0.01); Platelet Count 155 X 10*3/uL (140-440); RBC 3.75 X 10*6/uL (4.10-5.20); RDW 14.6 % (11.5-14.5); WBC 3.17 X 10*3/uL (4.50-10.00)
[2024-03-19 09:14] LABS: BUN/Creat Ratio 7.57 Ratio (12.00-20.00); Blood Urea Nitrogen 5.3 mg/dL (9.0-27.0); Carbon Dioxide 21.7 mmol/L (21.6-31.8); Chloride 101 mmol/L (96-109); Glucose 85 mg/dL (70-110); Magnesium 2.2 mg/dL (1.5-2.4); Potassium 4.3 mmol/L (3.5-5.5); Sodium 136 mmol/L (135-145)
[2024-03-19 09:15] LABS: ALT 63 U/L (8-44); AST 58 U/L (13-35); Albumin 4.3 g/dL (3.8-4.9); Albumin/Globulin Ratio 1.72 Ratio (1.60-3.17); Alkaline Phosphatase 47 U/L (41-126); Calcium 8.8 mg/dL (8.7-10.3); Globulin 2.5 g/dL (1.6-3.3); Total Bilirubin 0.9 mg/dL (0.3-1.2); Total Protein 6.8 g/dL (6.2-8.2)
[2024-03-19] MEDS: SODIUM CHLORIDE 0.9% 1,000 ML IV SCH (10:22)
[2024-03-19 14:16] VITALS: BP 124/76; PULSE 58; RESP 17; TEMP 98.9
--- NOTE | 2024-03-19 14:18 | P.DS ---
Providers Date of admission: 03/18/24 10:01 Expected date of discharge: 03/19/24 Attending physician: Aby Ball DO Primary care physician: [facility] Hospital Course: Discharge Diagnosis: Alcohol withdrawal in an active alcoholic with DTs CIWA score 4. Patient has had full resolution of nausea and vomiting. Patient strongly encouraged to consider inpatient drug and alcohol rehabilitation facility, however patient adamantly declines at this time stating she will follow-up with [facility]. Patient strongly encouraged to avoid any and all alcohol use. 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 Hypothyroidism status post thyroidectomy. Continue daily medication regimen with the levothyroxine 150 g daily, educated pt on the importance of taking daily every morning on an empty stomach and not missing any doses. TSH elevated at 18.600 but improved from recent TSH drawn 11/04/2023 resulting at 43.600 and free T4 also low at 0.58 but improved from previous 0.46. Would not recommend increasing patient's levothyroxine dose as it is highly suspected that patient is not taking medication as prescribed. Bipolar disorder and Depression. Continue daily medication regimen with Lexapro 20 mg daily and Lamictal 100 mg daily. Previously known right lung mass. X-ray showing increase in size from previous 3 cm up to 4 cm at this time. Recommend patient follow-up with soda flaker for appropriate surveillance and/or additional testing. Hospital Course: Patient is a 63-year-old female with a past medical history of EtOH abuse, hypothyroidism status post thyroidectomy, depression, and bipolar disorder. Patient is very well-known to our services and hospital. She has had 18 visits and 11 hospitalizations since November of this year. Multiple attempts have been made to assist patient with placement in outpatient rehab, however patient adamantly declines stating rehab does not help. Patient reports to drinking approximately 2 pints of hard liquor daily. 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 Patient presented to the emergency department today secondary to symptoms of alcohol withdraw including significant tremors, anxiety, nausea, and vomiting. She reports her last drink of alcohol was yesterday evening and states that she came to the emergency department because she cannot stop vomiting and needs something to assist her with detox. She denies having any recent illnesses or exposure to known ill contacts, headache, lightheadedness, dizziness, cough or congestion, sore throat, chest pain, palpitations, shortness of breath, abdominal pain, having any changes and or difficulties with her urinary or bowel function. Patient admits to heavy drinking. 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 Upon arrival to the emergency department, patient underwent evaluation. Vital signs upon arrival show blood pressure 138/88, heart rate 97, respiratory rate 18, temp 100.8 F, and SpO2 of 97% on room air. Labs were completed and reviewed. CBC unremarkable. BMP normal findings. Magnesium low at 1.2. Liver profile showing elevated AST of 81 and ALT of 76. TSH 18.600 and free T4 of 0.58. Serum alcohol level was negative at less than 10. Urinalysis was negative for infection. Influenza A, influenza B, RSV, and COVID PCR negative. EKG completed with moderate artifact secondary to patient's tremors but revealing sinus mechanism at 93 bpm. Chest x-ray showing interstitial slightly prominent and unable to exclude mild pulmonary vascular congestion, bronchitis, or asthma however negative for any other acute cardiopulmonary process. Chest x-ray also revealing known right lower lobe lung mass reported to increase in size from 3 cm up to 4 cm. Patient being admitted under our services for medical detox. Consultation placed to psychiatry for evaluation. Consultation initially placed to psychiatry for evaluation however patient declines wanting any assistance at this time. She denies experiencing any suicidal or homicidal ideations. Patient states that she is aware that she needs to quit drinking and would like to follow-up with her own therapist with [facility]. Patient declining any further assistance or resources at this time. Medically, patient is cleared for discharge. Again patient highly encouraged to consider inpatient rehabilitation facility, however we cannot force patient to go to rehab or stop drinking. Patient was educated that continued alcoholism will only result in continued health deterioration up to and including . Physical exam: Vital signs reviewed and stable. General: Nontoxic, no distress and appears stated age. Derm: Skin warm and dry, normal coloration for ethnicity. Head: Atraumatic, normocephalic and symmetric. Eyes: EOMs intact, no lid lag, and anicteric sclera Mouth: no lip lesions, mucus membranes moist Cardiovascular: regular rate and rhythm with normal S1S2, no murmur, positive posterior tibial pulses bilaterally, and cap refill < 2 seconds. Lungs: Respirations even, regular, and unlabored on room air. Lungs CTA bilaterally, no rhonchi, no rales, no wheezing, and no accessory muscle usage. Abdominal: soft, nontender to palpation, no guarding, no appreciable organomegaly Ext: ROM intact. No gross muscle atrophy, no edema, no contractures Neuro: Speech clear, face symmetrical and CN II-XII grossly intact. . Psych: Alert and oriented to person, place, time, and situation. Appropriate and pleasant affect. A total of 33 minutes of time were spent preparing this complex discharge summary. Pt was discharged on 03/19/24 at 1:06 PM. Patient was seen independently by Nurse Practitioner. This document was prepared using [employer] dictation software. Please allow for errors in portable pinch riveter while rare they do occur. I reviewed the documentation as provided by the CURTIS above, who is the original author of this note. I agree with the documented assessment and plan, with the following changes: none Patient Condition at Discharge: Stable Plan - Discharge Summary Discharge Rx Participant: Yes New Discharge Prescriptions: Continue Folic Acid 1 mg PO DAILY #30 tab Escitalopram [Lexapro] 20 mg PO DAILY 30 Days #30 tab Multivitamins, Thera [Multivitamin (formulary)] 1 cap PO DAILY #30 tab Pantoprazole [Protonix] 40 mg PO AC-BID #60 tab Levothyroxine Sodium [Synthroid] 150 mcg PO DAILY 30 Days #30 tab Melatonin 10 mg PO HS PRN 30 Days #30 tab PRN Reason: Insomnia Acetaminophen Tab [Tylenol] 325 mg PO Q6HR PRN tab PRN Reason: Fever And/ Or Pain Metoprolol Tartrate [Lopressor] 12.5 mg PO BID #60 tab Thiamine [Vitamin B-1] 100 mg PO DAILY #30 tab lamoTRIgine [LaMICtal] 100 mg PO DAILY #30 tab Discharge Medication List Acetaminophen Tab [Tylenol] 325 mg PO Q6HR PRN tab 02/17/24 [Rx] Escitalopram [Lexapro] 20 mg PO DAILY 30 Days #30 tab 02/17/24 [Rx] Folic Acid 1 mg PO DAILY #30 tab 02/17/24 [Rx] Levothyroxine Sodium [Synthroid] 150 mcg PO DAILY 30 Days #30 tab 02/17/24 [Rx] Melatonin 10 mg PO HS PRN 30 Days #30 tab 02/17/24 [Rx] Metoprolol Tartrate [Lopressor] 12.5 mg PO BID #60 tab 02/17/24 [Rx] Multivitamins, Thera [Multivitamin (formulary)] 1 cap PO DAILY #30 tab 02/17/24 [Rx] Pantoprazole [Protonix] 40 mg PO AC-BID #60 tab 02/17/24 [Rx] Thiamine [Vitamin B-1] 100 mg PO DAILY #30 tab 02/17/24 [Rx] lamoTRIgine [LaMICtal] 100 mg PO DAILY #30 tab 02/17/24 [Rx] Follow up Appointment(s)/Referral(s): [facility] [Primary Care Provider] - 1-2 days (Office is not answering at time of discharge. Please call for follow-up appointment.) Chidi Stephen MD [STAFF PHYSICIAN] - 04/03/24 9:00 am (Previously known right lung mass. X-ray showing increase in size from previous 3 cm up to 4 cm at this time. Recommend follow-up with soda flaker for appropriate surveillance and/or additional testing. ) Patient Instructions/Handouts: Abuse of Alcohol (DC), Alcohol Withdrawal (DC) Activity/Diet/Wound Care/Special Instructions: Activity: As tolerated. Take breaks as needed. Diet: Heart healthy and carb consistent diet. Avoid salts, or foods with hidden salts such as canned or boxed foods and frozen dinners. Extra salt makes your heart work harder and traps the fluid in your body for longer. Special Instructions: As discussed at bedside, we cannot force you to go to drug and alcohol rehab but it is strongly suggested. 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 Strongly recommend avoidance of any and all alcohol abuse and again recommend inpatient drug and alcohol rehabilitation facility. Recommend closely following with [facility]. . Discharge/Stand Alone Forms: AA Meetings [facility] - [facility], AA Meetings [facility], Who Do I Call?, Community Resources, Outpatient Counseling, In Substance Abuse Facilities Discharge Disposition: HOME SELF-CARE
== END 2024-03-19 17:23 | disposition home or self-care (01) ==
LOC: EC 07:28 → 4SSUR 10:01
PROVIDERS: ADMIT Internal Medicine; ATTEND Internal Medicine
DX: F10.231 Alcohol dependence with withdrawal delirium (principal); F10.229 Alcohol dependence with intoxication, unspecified; E83.42 Hypomagnesemia; D61.818 Other pancytopenia; E89.0 Postprocedural hypothyroidism; R91.8 Other nonspecific abnormal finding of lung field; R74.01 Elevation of levels of liver transaminase levels; F31.9 Bipolar disorder, unspecified; F41.9 Anxiety disorder, unspecified; Z79.890 Hormone replacement therapy; Z79.899 Other long term (current) drug therapy; Z88.1 Allergy status to other antibiotic agents; Z88.8 Allergy status to other drugs, medicaments and biological substances; Z11.52 Encounter for screening for COVID-19; Z11.59 Encounter for screening for other viral diseases
CPT/HCPCS: 96361 ×3; 96365; 96366; 96372; 96375; 99285; 36415; 93005; 84439; 80053 ×2; 84443; 83735 ×2; 85025; 85027; 81003; 80320; 87636; 71046; G0378 ×2; J3411; J3475; J1790

== ENCOUNTER 2024-03-25 22:14 | Emergency (ER) | payer SELFPAY ==
--- NOTE | 2024-03-26 00:12 | ED ---
Alcohol HPI - General Chief Complaint: Alcohol Stated Complaint: ETOH Time Seen by Provider: 03/26/24 00:12 Source: patient Mode of arrival: ambulatory Limitations: no limitations - History of Present Illness Initial Comments: 63-year-old female presenting with chief complaint of alcohol withdrawal. Patient normally drinks a pint per day. Her last drink was at noon. She states that she is planning on going to [place] rehab. She is experiencing nausea and vomiting as well as tremoring. No chest pain or difficulty breathing. No abdominal pain. - Related Data Previous Rx's Medication Instructions Recorded Acetaminophen Tab [Tylenol] 325 mg PO Q6HR PRN tab 02/17/24 Escitalopram [Lexapro] 20 mg PO DAILY 30 Days #30 tab 02/17/24 Folic Acid 1 mg PO DAILY #30 tab 02/17/24 Levothyroxine Sodium [Synthroid] 150 mcg PO DAILY 30 Days #30 tab 02/17/24 Melatonin 10 mg PO HS PRN 30 Days #30 tab 02/17/24 Metoprolol Tartrate [Lopressor] 12.5 mg PO BID #60 tab 02/17/24 Multivitamins, Thera [Multivitamin 1 cap PO DAILY #30 tab 02/17/24 (formulary)] Pantoprazole [Protonix] 40 mg PO AC-BID #60 tab 02/17/24 Thiamine [Vitamin B-1] 100 mg PO DAILY #30 tab 02/17/24 lamoTRIgine [LaMICtal] 100 mg PO DAILY #30 tab 02/17/24 Allergies Allergy/AdvReac Type Severity Reaction Status Date / Time clindamycin Allergy Unknown Rash/Hives Verified 03/25/24 23:27 acetylcysteine AdvReac Anaphylaxis Verified 03/25/24 23:27 [From Mucomyst] citalopram [From Celexa] AdvReac Hallucinati Verified 03/25/24 23:27 ons diphenhydramine HCl AdvReac Rapid Verified 03/25/24 23:27 [From Benadryl] Heart Rate Review of Systems ROS Statement: Those systems with pertinent positive or pertinent negative responses have been documented in the HPI. ROS Other: All systems not noted in ROS Statement are negative. Past Medical History Past Medical History: Asthma, Cancer, Hypertension, Thyroid Disorder Additional Past Medical History / Comment(s): History of goiter status post thyroidectomy, questionable history of thyroid cancer although this is not clear, bipolar disorder, depression, history of suicidal ideations, history of drug overdose, alcoholism, seasonal rhinitis, psoriasis, breast cysts, history of broken toes in the right foot, History of Any Multi-Drug Resistant Organisms: None Reported Past Surgical History: No Surgical Hx Reported Additional Past Surgical History / Comment(s): Thyroidectomy 1999, SKIN NEVI REMOVED Past Anesthesia/Blood Transfusion Reactions: Previous Problems w/ Anesthesia, Postoperative Nausea & Vomiting (PONV) Additional Past Anesthesia/Blood Transfusion Reaction / Comment(s): Lives in a house with two roommates. ETOH. Pt no longer has a drivers license- she has had 2 DUI's. 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 She has lost several jobs d/t dr fitzgerald. She is seen at [facility]. Past Psychological History: Anxiety, Bipolar, Depression Smoking Status: Never smoker Past Alcohol Use History: Abuse, Daily, Heavy Past Drug Use History: None Reported - Past Family History Father Family Medical History: Cancer Additional Family Medical History / Comment(s): Father at age 64 of esophageal cancer. Father was an alcoholic and had cirrhosis of the liver. Mother Family Medical History: Cancer Additional Family Medical History / Comment(s): Mother of breast cancer at age 42yrs. General Exam - General Exam Comments Initial Comments: Visual Physical Exam Vital signs reviewed General: Well-appearing, nontoxic, no acute distress. Head: Normocephalic, atraumatic Eyes: PERRLA, EOMI ENT: Airway patent Chest: Nonlabored breathing Skin: No visual rash, normal skin tone Neuro: Alert and oriented 3 Musculoskeletal: No gross abnormalities Limitations: no limitations General appearance: alert, in no apparent distress Head exam: Present: atraumatic, normocephalic Eye exam: Present: normal appearance Neck exam: Present: normal inspection. Absent: meningismus Respiratory exam: Absent: respiratory distress Cardiovascular Exam: Present: regular rate Neurological exam: Present: alert, oriented X3 Psychiatric exam: Present: normal affect, normal mood Skin exam: Present: normal color Course Vital Signs 03/25/24 03/26/24 03/26/24 23:20 02:41 04:44 Temperature 97.7 F 97.8 F 97.7 F Pulse Rate 72 78 64 Respiratory 22 16 16 Rate Blood Pressure 120/83 135/89 121/73 O2 Sat by Pulse 95 94 L 96 Oximetry Medical Decision Making - Medical Decision Making I performed the quick note portion of this visit, electronically signed Gucci Dumont PA-C Was pt. sent in by a medical professional or institution (EDY Riley, [employer]PER[employer], urgent care, hospital, or intermediate...) When possible be specific @ -No Did you speak to anyone other than the patient for history (EMS, parent, family, police, friend...)? What history was obtained from this source @ -No Did you review nursing and triage notes (agree or disagree)? Why? @ -I reviewed and agree with nursing and triage notes Were old charts reviewed (outside hosp., previous admission, EMS record, old EKG, old radiological studies, urgent care reports/EKG's, intermediate records)? Report findings @ -No old charts were reviewed Differential Diagnosis (chest pain, altered mental status, abdominal pain women, abdominal pain men, vaginal bleeding, weakness, fever, dyspnea, syncope, headache, dizziness, GI bleed, back pain, seizure, CVA, palpatations, mental health, musculoskeletal)? @ -Differential includes alcohol intoxication, alcohol withdrawal, electrolyte imbalance, this is not an all-inclusive list EKG interpreted by me (3pts min.). @ -As above X-rays interpreted by me (1pt min.). @ -None done CT interpreted by me (1pt min.). @ -None done U/S interpreted by me (1pt. min.). @ -None done What testing was considered but not performed or refused? (CT, X-rays, U/S, labs)? Why? @ -None What meds were considered but not given or refused? Why? @ -None Did you discuss the management of the patient with other professionals (professionals i.e. EDY Riley, [employer] SUPERVISOR, lab, RT, psych nurse, social science research assistant, box cutter, teacher, officer lieutenant, case work aide)? Give summary @ -No Was smoking cessation discussed for >3mins.? @ -No Was critical care preformed (if so, how long)? @ -No Were there social determinants of health that impacted care today? How? (Homelessness, low income, unemployed, alcoholism, drug addiction, transportation, low edu. Level, literacy, decrease access to med. care, longterm, rehab)? @ -No Was there de-escalation of care discussed even if they declined (Discuss DNR or withdrawal of care, Hospice)? DNR status @ -No What co-morbidities impacted this encounter? (DM, HTN, Smoking, COPD, CAD, Cancer, CVA, ARF, Chemo, Hep., AIDS, mental health diagnosis, sleep apnea, morbid obesity)? @ -None Was patient admitted / discharged? Hospital course, mention meds given and route, prescriptions, significant lab abnormalities, going to OR and other pertinent info. @ -63-year-old female presenting with chief complaint of alcohol withdrawal. Patient's last drink was at noon today. CIWA score is 6. Patient treated with Ativan and Zofran. Improvement in symptoms. She will be discharged home. She plans on going to [place]. Follow-up with PCP. Report back to ER with any new or worsening symptoms. Discussed return parameters and answered all questions. Patient conveyed verbal understanding and agreed to the plan. I discussed this case in detail with my attending Dr. Garsia Undiagnosed new problem with uncertain prognosis? @ -No Drug Therapy requiring intensive monitoring for toxicity (Heparin, Nitro, Insulin, Cardizem)? @ -No Were any procedures done? @ -No Diagnosis/symptom? @ -Alcohol withdrawal Acute, or Chronic, or Acute on Chronic? @ -Acute Uncomplicated (without systemic symptoms) or Complicated (systemic symptoms)? @ -Complicated Side effects of treatment? @ -No Exacerbation, Progression, or Severe Exacerbation? @ -No Poses a threat to life or bodily function? How? (Chest pain, USA, MA, pneumonia, PE, COPD, DKA, ARF, appy, cholecystitis, CVA, Diverticulitis, Homicidal, Suicidal, threat to staff... and all critical care pts) @ -Unlikely at this time - Lab Data Result diagrams: 03/26/24 00:45 03/26/24 00:45 Lab Results 03/26/24 03/26/24 Range/Units 00:45 00:45 WBC 2.9 L (3.8-10.6) k/uL RBC 4.01 (3.80-5.40) m/uL Hgb 13.0 (11.4-16.0) gm/dL Hct 39.0 (34.0-46.0) % MCV 97.3 (80.0-100.0) fL MCH 32.3 (25.0-35.0) pg MCHC 33.2 (31.0-37.0) g/dL RDW 15.4 (11.5-15.5) % Plt Count 209 (150-450) k/uL MPV 8.9 Neutrophils % 46 % Lymphocytes % 40 % Monocytes % 9 % Eosinophils % 2 % Basophils % 1 % Neutrophils # 1.3 (1.3-7.7) k/uL Lymphocytes # 1.2 (1.0-4.8) k/uL Monocytes # 0.3 (0-1.0) k/uL Eosinophils # 0.0 (0-0.7) k/uL Basophils # 0.0 (0-0.2) k/uL Sodium 149 H (137-145) mmol/L Potassium 4.0 (3.5-5.1) mmol/L Chloride 108 H (98-107) mmol/L Carbon Dioxide 29 (22-30) mmol/L Anion Gap 12 mmol/L BUN 10 (7-17) mg/dL Creatinine 0.70 (0.52-1.04) mg/dL Est GFR (CKD-EPI)AfAm >90 (>60 ml/min/1.73 sqM) Est GFR (CKD-EPI)NonAf >90 (>60 ml/min/1.73 sqM) Glucose 94 (74-99) mg/dL Calcium 9.2 (8.4-10.2) mg/dL Total Bilirubin 0.6 (0.2-1.3) mg/dL AST 138 H (14-36) U/L ALT 120 H (4-34) U/L Alkaline Phosphatase 49 (38-126) U/L Total Protein 7.8 (6.3-8.2) g/dL Albumin 4.6 (3.5-5.0) g/dL Disposition Clinical Impression: Alcohol withdrawal Disposition: HOME SELF-CARE Condition: Fair Instructions (If sedation given, give patient instructions): Alcohol Withdrawal (ED) Additional Instructions: Follow-up with PCP. Report back to ER with any new or worsening symptoms. Is patient prescribed a controlled substance at d/c from ED?: No Referrals: [facility] [Primary Care Provider] - 1-2 days
[2024-03-26 01:08] LABS: Basophils % (A) 1 %; Eosinophils % (A) 2 %; Lymphocytes # (A) 1.2 k/uL (1.0-4.8); Lymphocytes % (A) 40 %; MCH 32.3 pg (25.0-35.0); MCHC 33.2 g/dL (31.0-37.0); MCV 97.3 fL (80.0-100.0); Mean Platelet Volume 8.9; Monocytes # (A) 0.3 k/uL (0-1.0); Monocytes % (A) 9 %; Neutrophils # (A) 1.3 k/uL (1.3-7.7); Neutrophils % (A) 46 %; Platelet Count 209 k/uL (150-450); RBC 4.01 m/uL (3.80-5.40); RDW 15.4 % (11.5-15.5); WBC 2.9 k/uL (3.8-10.6)
[2024-03-26 02:10] LABS: ALT 120 U/L (4-34); AST 138 U/L (14-36); African American GFR (CKD) >90 (>60 ml/min/1.73 sqM); Albumin 4.6 g/dL (3.5-5.0); Alkaline Phosphatase 49 U/L (38-126); Anion Gap 12 mmol/L; Blood Urea Nitrogen 10 mg/dL (7-17); Calcium 9.2 mg/dL (8.4-10.2); Carbon Dioxide 29 mmol/L (22-30); Chloride 108 mmol/L (98-107); Glucose 94 mg/dL (74-99); Non-African American GFR(CKD) >90 (>60 ml/min/1.73 sqM); Sodium 149 mmol/L (137-145); Total Bilirubin 0.6 mg/dL (0.2-1.3); Total Protein 7.8 g/dL (6.3-8.2)
[2024-03-26] MEDS ORDERED: LORazepam 2 MG/ML INJ IV PRN ×3 (02:20)
[2024-03-26] MEDS: ONDANSETRON 4 MG/2 ML VIAL IVP STA (02:34)
[2024-03-26] MEDS: SODIUM CHLORIDE 0.9% 1,000 ML IV ONE (02:34)
[2024-03-26 03:01] VITALS: RESP 16
[2024-03-26] MEDS: THIAMINE 100 MG/ML 2 ML VIAL IM STA (03:29)
[2024-03-26 05:30] VITALS: BP 121/73; PULSE 64; TEMP 97.7
[2024-03-27] MEDS ORDERED: THIAMINE 100 MG TAB PO SCH (09:00)
== END 2024-03-26 05:35 | disposition home or self-care (01) ==
LOC: EC 22:14
DX: F10.239 Alcohol dependence with withdrawal, unspecified (principal); Z88.1 Allergy status to other antibiotic agents; Z88.8 Allergy status to other drugs, medicaments and biological substances
CPT/HCPCS: 36415; 80053; 85025; 99285; 96374; 96372; 96361; J3411; J2405

== ENCOUNTER 2024-04-01 20:21 | Inpatient (IN) | payer OTHER ==
[2024-04-01] MEDS ORDERED: LORazepam 2 MG/ML INJ IV PRN (21:05)
[2024-04-01] MEDS: THIAMINE 100 MG/ML 2 ML VIAL IM STA (21:38)
[2024-04-01] MEDS: LORazepam 2 MG/ML INJ IV PRN (21:39)
[2024-04-01 21:42] LABS: Basophils % (A) 1 %; Eosinophils # (A) 0.1 k/uL (0-0.7); Eosinophils % (A) 3 %; HCT 36.9 % (34.0-46.0); HGB 12.4 gm/dL (11.4-16.0); Lymphocytes # (A) 1.1 k/uL (1.0-4.8); Lymphocytes % (A) 22 %; MCH 31.8 pg (25.0-35.0); MCHC 33.7 g/dL (31.0-37.0); MCV 94.2 fL (80.0-100.0); Mean Platelet Volume 9.1; Monocytes # (A) 0.4 k/uL (0-1.0); Monocytes % (A) 8 %; Neutrophils # (A) 3.2 k/uL (1.3-7.7); Neutrophils % (A) 64 %; Platelet Count 153 k/uL (150-450); RBC 3.91 m/uL (3.80-5.40); RDW 15.5 % (11.5-15.5); WBC 5.1 k/uL (3.8-10.6)
--- NOTE | 2024-04-01 21:46 | ED ---
Alcohol HPI - General Chief Complaint: Alcohol Stated Complaint: Detox/Withdrawal Time Seen by Provider: 04/01/24 21:30 Source: patient, EMS Mode of arrival: EMS Limitations: no limitations - History of Present Illness Initial Comments: 63-year-old female presenting to the ED with complaints of withdrawal. Patient reports daily drinking for years. Reports drinking a pint or more a day. Her last drink today was at approximately 3 PM. Has had proximately a pint and a half. Has tried quitting in the past however denies history of seizures due to quitting. Currently admits to headache, nausea, vomiting, anxiety, and tremulousness. No chest pain or shortness of breath. No fever or chills. No other complaints at this time. - Related Data Previous Rx's Medication Instructions Recorded Acetaminophen Tab [Tylenol] 325 mg PO Q6HR PRN tab 02/17/24 Escitalopram [Lexapro] 20 mg PO DAILY 30 Days #30 tab 02/17/24 Folic Acid 1 mg PO DAILY #30 tab 02/17/24 Levothyroxine Sodium [Synthroid] 150 mcg PO DAILY 30 Days #30 tab 02/17/24 Melatonin 10 mg PO HS PRN 30 Days #30 tab 02/17/24 Metoprolol Tartrate [Lopressor] 12.5 mg PO BID #60 tab 02/17/24 Multivitamins, Thera [Multivitamin 1 cap PO DAILY #30 tab 02/17/24 (formulary)] Pantoprazole [Protonix] 40 mg PO AC-BID #60 tab 02/17/24 Thiamine [Vitamin B-1] 100 mg PO DAILY #30 tab 02/17/24 lamoTRIgine [LaMICtal] 100 mg PO DAILY #30 tab 02/17/24 Allergies Allergy/AdvReac Type Severity Reaction Status Date / Time clindamycin Allergy Unknown Rash/Hives Verified 03/25/24 23:27 acetylcysteine AdvReac Anaphylaxis Verified 03/25/24 23:27 [From Mucomyst] citalopram [From Celexa] AdvReac Hallucinati Verified 03/25/24 23:27 ons diphenhydramine HCl AdvReac Rapid Verified 03/25/24 23:27 [From Benadryl] Heart Rate Review of Systems ROS Statement: Those systems with pertinent positive or pertinent negative responses have been documented in the HPI. ROS Other: All systems not noted in ROS Statement are negative. Past Medical History Past Medical History: Asthma, Cancer, Hypertension, Thyroid Disorder Additional Past Medical History / Comment(s): History of goiter status post thyroidectomy, questionable history of thyroid cancer although this is not clear, bipolar disorder, depression, history of suicidal ideations, history of drug overdose, alcoholism, seasonal rhinitis, psoriasis, breast cysts, history of broken toes in the right foot, History of Any Multi-Drug Resistant Organisms: None Reported Past Surgical History: No Surgical Hx Reported Additional Past Surgical History / Comment(s): Thyroidectomy 1999, SKIN NEVI REMOVED Past Anesthesia/Blood Transfusion Reactions: Previous Problems w/ Anesthesia, Postoperative Nausea & Vomiting (PONV) Additional Past Anesthesia/Blood Transfusion Reaction / Comment(s): Lives in a house with two roommates. ETOH. Pt no longer has a drivers license- she has had 2 DUI's. 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 She is seen at [facility]. Past Psychological History: Anxiety, Bipolar, Depression Smoking Status: Never smoker Past Alcohol Use History: Abuse, Daily, Heavy Past Drug Use History: None Reported - Past Family History Father Family Medical History: Cancer Additional Family Medical History / Comment(s): Father at age 64 of esophageal cancer. Father was an alcoholic and had cirrhosis of the liver. Mother Family Medical History: Cancer Additional Family Medical History / Comment(s): Mother of breast cancer at age 42yrs. General Exam Limitations: no limitations General appearance: alert, in no apparent distress Eye exam: Present: normal appearance Neck exam: Present: normal inspection Respiratory exam: Present: normal lung sounds bilaterally Cardiovascular Exam: Present: regular rate GI/Abdominal exam: Present: soft, normal bowel sounds. Absent: distended, tenderness, guarding, rebound, rigid Extremities exam: Present: normal inspection, other (Tremulous with hands extended.) Neurological exam: Present: alert, oriented X3 Course Vital Signs 04/01/24 04/01/24 04/01/24 20:26 22:11 23:00 Temperature 98.8 F Pulse Rate 72 76 70 Respiratory 18 18 16 Rate Blood Pressure 110/72 110/70 104/64 O2 Sat by Pulse 92 L 96 94 L Oximetry Medical Decision Making - Medical Decision Making Was pt. sent in by a medical professional or institution (Dr., PA, GRANTS ASSISTANT, urgent care, hospital, or longterm...) When possible be specific @ -No Did you speak to anyone other than the patient for history (EMS, parent, family, police, friend...)? What history was obtained from this source @ -No Did you review nursing and triage notes (agree or disagree)? Why? @ -I reviewed and agree with nursing and triage notes Were old charts reviewed (outside hosp., previous admission, EMS record, old EKG, old radiological studies, urgent care reports/EKG's, longterm records)? Report findings @ -No old charts were reviewed Differential Diagnosis (chest pain, altered mental status, abdominal pain women, abdominal pain men, vaginal bleeding, weakness, fever, dyspnea, syncope, headache, dizziness, GI bleed, back pain, seizure, CVA, palpatations, mental health, musculoskeletal)? @ -Differential Altered Mental Status: Hypoglycemia, DKA, hypercapnia, ETOH, overdose, CO poisoning, trauma, myxedema coma, HTN encephalopathy, infection, encephalitis, psychosis, intercranial hemorrhage, hepatic encephalopathy, meningitis, CVA, this is not meant to be an all-inclusive list EKG interpreted by me (3pts min.). @ -None X-rays interpreted by me (1pt min.). @ -None done CT interpreted by me (1pt min.). @ -None done U/S interpreted by me (1pt. min.). @ -None done What testing was considered but not performed or refused? (CT, X-rays, U/S, labs)? Why? @ -None What meds were considered but not given or refused? Why? @ -None Did you discuss the management of the patient with other professionals (professionals i.e. , PA, GRANTS ASSISTANT, lab, RT, psych nurse, social science analyst, adjuster electrical contacts, teacher, human resource officer, case coordinator)? Give summary @ -Case discussed with Dr. Moe, who accepts admission. Was smoking cessation discussed for >3mins.? @ -No Was critical care preformed (if so, how long)? @ -No Were there social determinants of health that impacted care today? How? (Homelessness, low income, unemployed, alcoholism, drug addiction, transportation, low edu. Level, literacy, decrease access to med. care, skilled nursing, rehab)? @ -No Was there de-escalation of care discussed even if they declined (Discuss DNR or withdrawal of care, Hospice)? DNR status @ -No What co-morbidities impacted this encounter? (DM, HTN, Smoking, COPD, CAD, Cancer, CVA, ARF, Chemo, Hep., AIDS, mental health diagnosis, sleep apnea, morbid obesity)? @ -None Was patient admitted / discharged? Hospital course, mention meds given and route, prescriptions, significant lab abnormalities, going to OR and other pertinent info. @ -Admission 63-year-old female past medical history significant for alcoholism drinks a pint a day for the past few years presenting to the ED with complaints of alcohol withdrawal. Last drink was at approximately 3 PM today. Laboratory studies rev iewed. CBC largely unremarkable. Chemistry panel largely unremarkable other than a hypokalemia at 3.1 hyponatremia at 132. Potassium was repleted. Serum alcohol elevated at 262. Patient will be admitted secondary to alcohol intoxication with [facility] protocol. Undiagnosed new problem with uncertain prognosis? @ -No Drug Therapy requiring intensive monitoring for toxicity (Heparin, Nitro, Insulin, Cardizem)? @ -No Were any procedures done? @ -No Diagnosis/symptom? @ -Alcohol intoxication Acute, or Chronic, or Acute on Chronic? @ -Acute on chronic Uncomplicated (without systemic symptoms) or Complicated (systemic symptoms)? @ -Uncomplicated Side effects of treatment? @ -No Exacerbation, Progression, or Severe Exacerbation? @ -No Poses a threat to life or bodily function? How? (Chest pain, USA, AR, pneumonia, PE, COPD, DKA, ARF, appy, cholecystitis, CVA, Diverticulitis, Homicidal, Suicidal, threat to staff... and all critical care pts) @ -Unlikely at this time - Lab Data Result diagrams: 04/01/24 21:29 04/01/24 21:50 Lab Results 04/01/24 04/01/24 Range/Units 21:29 21:50 WBC 5.1 (3.8-10.6) k/uL RBC 3.91 (3.80-5.40) m/uL Hgb 12.4 (11.4-16.0) gm/dL Hct 36.9 (34.0-46.0) % MCV 94.2 (80.0-100.0) fL MCH 31.8 (25.0-35.0) pg MCHC 33.7 (31.0-37.0) g/dL RDW 15.5 (11.5-15.5) % Plt Count 153 (150-450) k/uL MPV 9.1 Neutrophils % 64 % Lymphocytes % 22 % Monocytes % 8 % Eosinophils % 3 % Basophils % 1 % Neutrophils # 3.2 (1.3-7.7) k/uL Lymphocytes # 1.1 (1.0-4.8) k/uL Monocytes # 0.4 (0-1.0) k/uL Eosinophils # 0.1 (0-0.7) k/uL Basophils # 0.0 (0-0.2) k/uL Sodium 132 L (137-145) mmol/L Potassium 3.1 L (3.5-5.1) mmol/L Chloride 96 L (98-107) mmol/L Carbon Dioxide 23 (22-30) mmol/L Anion Gap 13 mmol/L BUN 10 (7-17) mg/dL Creatinine 0.67 (0.52-1.04) mg/dL Est GFR (CKD-EPI)AfAm >90 (>60 ml/min/1.73 sqM) Est GFR (CKD-EPI)NonAf >90 (>60 ml/min/1.73 sqM) Glucose 102 H (74-99) mg/dL Calcium 9.1 (8.4-10.2) mg/dL Phosphorus 3.7 (2.5-4.5) mg/dL Magnesium 1.6 (1.6-2.3) mg/dL Total Bilirubin 0.6 (0.2-1.3) mg/dL AST 79 H (14-36) U/L ALT 72 H (4-34) U/L Alkaline Phosphatase 47 (38-126) U/L Total Protein 7.0 (6.3-8.2) g/dL Albumin 4.2 (3.5-5.0) g/dL Serum Alcohol 262 H* mg/dL Disposition Clinical Impression: Alcohol intoxication Disposition: ADMITTED IP TO THIS [facility] Condition: Good Referrals: [facility] [Primary Care Provider] - 1-2 days Time of Disposition: 00:50
[2024-04-01 22:08] LABS: ALT 72 U/L (4-34); AST 79 U/L (14-36); African American GFR (CKD) >90 (>60 ml/min/1.73 sqM); Albumin 4.2 g/dL (3.5-5.0); Alkaline Phosphatase 47 U/L (38-126); Anion Gap 13 mmol/L; Blood Urea Nitrogen 10 mg/dL (7-17); Calcium 9.1 mg/dL (8.4-10.2); Carbon Dioxide 23 mmol/L (22-30); Chloride 96 mmol/L (98-107); Glucose 102 mg/dL (74-99); Magnesium 1.6 mg/dL (1.6-2.3); Non-African American GFR(CKD) >90 (>60 ml/min/1.73 sqM); Phosphorus 3.7 mg/dL (2.5-4.5); Potassium 3.1 mmol/L (3.5-5.1); Sodium 132 mmol/L (137-145); Total Bilirubin 0.6 mg/dL (0.2-1.3)
[2024-04-01 22:18] LABS: Alcohol 262 mg/dL
[2024-04-01] MEDS: ONDANSETRON 4 MG/2 ML VIAL IVP STA (23:00)
[2024-04-01] MEDS: SODIUM CHLORIDE 0.9% 1,000 ML IV STA (23:00)
[2024-04-02] MEDS: POTASSIUM CHLORIDE ER 20 MEQ TAB.ER PO STA (01:31)
[2024-04-02 01:54] LABS: Appearance,Urine Clear (Clear); Bilirubin,Urine Negative (Negative); Blood,Urine Negative (Negative); Color,Urine Colorless; Glucose,Urine (UA) Negative (Negative); Ketones,Urine Negative (Negative); Leukocyte Esterase,Urine Negative (Negative); Nitrite,Urine Negative (Negative); Protein,Urine Negative (Negative); Specific Gravity,Urine 1.003 (1.001-1.035); Urobilinogen,Urine <2.0 mg/dL (<2.0)
[2024-04-02] MEDS ORDERED: NALOXONE 0.4 MG/ML 1 ML VIAL IV PRN (02:57)
--- NOTE | 2024-04-02 03:50 | P.HPIM ---
History of Present Illness H&P Date: 04/02/24 Chief Complaint: Vomiting alcohol intoxication 63-year-old female with alcohol dependence and abuse, hypothyroid Patient is well-known for our service with multiple hospital visits over the past 5 months, for alcohol intoxication and withdrawal patient does admit to heavy alcohol intake she is presenting today due to repeated nausea vomiting at home her last drink was around 3 PM prior to her presentation to the hospital denies any bleeding chest pain trouble breathing abdominal pain fevers or chills denies any coughing or upper respiratory infection symptoms denies any changes in urinary or bowel habits During my evaluation patient seems to be shaking he smells of strong urine odor review of systems Pertinent positives as noted in HPI. All other systems were reviewed and are negative on exam Constitutional: No acute distress, conversant, pleasant Eyes: Anicteric sclerae, moist conjunctiva, Pupils equal round reactive to light Neck: Supple, no masses, or JVD No carotid bruits No thyromegaly Lungs: Clear to auscultation Clear to percussion Normal respiratory effort, no accessory muscle use Cardiovascular: Heart regular in rate and rhythm, No murmurs, gallops, or rubs No peripheral edema Abdominal: Soft Nontender, no guarding, rebound or rigidity Abdomen moving with respiration Normoactive bowel sounds Extremities: No digital cyanosis No clubbing Pedal pulses intact and symmetrical Radial pulses intact and symmetrical No calf tenderness Psychiatric: Alert and oriented to person, place and time Neuro Muscles Strength 5/5 in all 4 extremities Sensation to light touch grossly present throughout Past Medical History Past Medical History: Asthma, Cancer, Hypertension, Thyroid Disorder Additional Past Medical History / Comment(s): History of goiter status post thyroidectomy, questionable history of thyroid cancer although this is not clear, bipolar disorder, depression, history of suicidal ideations, history of drug overdose, alcoholism, seasonal rhinitis, psoriasis, breast cysts, history of broken toes in the right foot, History of Any Multi-Drug Resistant Organisms: None Reported Past Surgical History: No Surgical Hx Reported Additional Past Surgical History / Comment(s): Thyroidectomy 1999, SKIN NEVI REMOVED Past Anesthesia/Blood Transfusion Reactions: Previous Problems w/ Anesthesia, Postoperative Nausea & Vomiting (PONV) Additional Past Anesthesia/Blood Transfusion Reaction / Comment(s): Lives in a house with two roommates. ETOH. Pt no longer has a drivers license- she has had 2 DUI's. 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 She is seen at [facility]. Past Psychological History: Anxiety, Bipolar, Depression Smoking Status: Never smoker Past Alcohol Use History: Abuse, Daily, Heavy Past Drug Use History: None Reported - Past Family History Father Family Medical History: Cancer Additional Family Medical History / Comment(s): Father at age 64 of esophageal cancer. Father was an alcoholic and had cirrhosis of the liver. Mother Family Medical History: Cancer Additional Family Medical History / Comment(s): Mother of breast cancer at age 42yrs. Medications and Allergies Home Medications Medication Instructions Recorded Confirmed Type Acetaminophen Tab [Tylenol] 325 mg PO Q6HR PRN tab 02/17/24 03/18/24 Rx Escitalopram [Lexapro] 20 mg PO DAILY 30 Days #30 tab 02/17/24 03/18/24 Rx Folic Acid 1 mg PO DAILY #30 tab 02/17/24 03/18/24 Rx Levothyroxine Sodium [Synthroid] 150 mcg PO DAILY 30 Days #30 tab 02/17/24 03/18/24 Rx Melatonin 10 mg PO HS PRN 30 Days #30 tab 02/17/24 03/18/24 Rx Metoprolol Tartrate [Lopressor] 12.5 mg PO BID #60 tab 02/17/24 03/18/24 Rx Multivitamins, Thera [Multivitamin 1 cap PO DAILY #30 tab 02/17/24 03/18/24 Rx (formulary)] Pantoprazole [Protonix] 40 mg PO AC-BID #60 tab 02/17/24 03/18/24 Rx Thiamine [Vitamin B-1] 100 mg PO DAILY #30 tab 02/17/24 03/18/24 Rx lamoTRIgine [LaMICtal] 100 mg PO DAILY #30 tab 02/17/24 03/18/24 Rx Allergies Allergy/AdvReac Type Severity Reaction Status Date / Time clindamycin Allergy Unknown Rash/Hives Verified 03/25/24 23:27 acetylcysteine AdvReac Anaphylaxis Verified 03/25/24 23:27 [From Mucomyst] citalopram [From Celexa] AdvReac Hallucinati Verified 03/25/24 23:27 ons diphenhydramine HCl AdvReac Rapid Verified 03/25/24 23:27 [From Benadryl] Heart Rate Physical Exam Vitals: Vital Signs Temp Pulse Resp BP Pulse Ox 04/02/24 01:35 70 17 111/70 93 L 04/01/24 23:00 70 16 104/64 94 L 04/01/24 22:11 76 18 110/70 96 04/01/24 20:26 98.8 F 72 18 110/72 92 L Intake and Output 04/01/24 04/01/24 04/02/24 14:59 22:59 06:59 Other: Weight 86.183 kg Results CBC & Chem 7: 04/01/24 21:29 04/01/24 21:50 Labs: Abnormal Lab Results - Last 24 Hours (Table) 04/01/24 Range/Units 21:50 Sodium 132 L (137-145) mmol/L Potassium 3.1 L (3.5-5.1) mmol/L Chloride 96 L (98-107) mmol/L Glucose 102 H (74-99) mg/dL AST 79 H (14-36) U/L ALT 72 H (4-34) U/L Serum Alcohol 262 H* mg/dL Assessment and Plan Assessment: 63-year-old female with alcohol abuse and dependence coming in for repeated nausea vomiting her last drink was 3 PM just prior to coming to the ED I discussed the case with ED doctor accepted the admission for intractable nausea vomiting with alcohol intoxication with anticipated length of stay less than 2 midnights Severe alcohol intoxication with alcohol abuse Monitor for alcohol withdrawal syndrome Benzos per CIWA scale Thiamine p.o. daily IV fluid hydration normal saline Patient counseled to quit drinking Hypothyroid Resume levothyroxine Hypokalemia Potassium 3.1 Replace orally follow-up levels Transaminitis AST 79 ALT 72 Most likely secondary to alcohol abuse Continue to monitor Full code DVT prophylaxis heparin subcu 3 times daily 5000 units GI prophylaxis Protonix 40 mg p.o. daily
[2024-04-02] MEDS: SODIUM CHLORIDE 0.9% 1,000 ML IV SCH (04:59)
[2024-04-02] MEDS: LEVOTHYROXINE 75 MCG TAB PO SCH (06:13)
[2024-04-02] MEDS: ONDANSETRON 4 MG/2 ML VIAL IVP PRN (08:27)
[2024-04-02] MEDS: MAGNESIUM SULFATE-D5W PMX 1 GM in DEXTROSE/WATER 1 100ML.BAG IVPB SCH (08:32)
[2024-04-02] MEDS: HEPARIN SODIUM,PORCINE 5,000 UNIT/ML 1 ML VIAL SQ SCH (08:33)
[2024-04-02] MEDS: METOPROLOL TARTRATE 12.5 MG TAB PO SCH (08:38)
[2024-04-02] MEDS: lamoTRIgine 100 MG TAB PO SCH (08:38)
[2024-04-02] MEDS: PANTOPRAZOLE 40 MG TABLET PO SCH ×2 (08:38→12:03)
[2024-04-02 10:11] LABS: African American GFR (CKD) >90 (>60 ml/min/1.73 sqM); Anion Gap 9 mmol/L; Blood Urea Nitrogen 9 mg/dL (7-17); Calcium 8.7 mg/dL (8.4-10.2); Carbon Dioxide 25 mmol/L (22-30); Chloride 104 mmol/L (98-107); Glucose 75 mg/dL (74-99); Non-African American GFR(CKD) >90 (>60 ml/min/1.73 sqM); Potassium 4.5 mmol/L (3.5-5.1); Sodium 138 mmol/L (137-145)
[2024-04-02 10:51] LABS: GGT 158 U/L (0-38)
[2024-04-02] MEDS ORDERED: LORazepam 1 MG TAB PO PRN (10:56)
[2024-04-02] MEDS ORDERED: LORazepam 0.5 MG TAB PO PRN (10:56)
[2024-04-02] MEDS ORDERED: MELATONIN 5 MG TABLET PO PRN (11:01)
--- NOTE | 2024-04-02 11:07 | P.PN ---
Subjective Progress Note Date: 04/02/24 Hospital Course: Patient is a 63-year-old female with a past medical history of EtOH abuse, hypothyroidism status post thyroidectomy, depression, and bipolar disorder. Patient is very well-known to our services and hospital. She has had 20 visits and 12 hospitalizations at this facility since November of this year. Multiple attempts have been made to assist patient with placement in outpatient rehab, however patient adamantly declines stating rehab does not help or states that she has to take care of personal things at home first. Patient reports to dave cisneros approximately 2 pints of hard liquor daily and when she does not have liquor available to her she has been drinking hand santizer and has also drank rubbing alcohol and sucked on alcohol pads. She has underwent multiple medical detoxes and upon discharge, pt has returned home to again drink heavily. Pt reports that she folllows with [facility], but states that she has not been compliant with their recommendations and was petitioned for failure to comply and did not show up in court and now has a court date on 04/04/2024 failure to show. Patient again presenting to the emergency department with complaints of alcohol withdrawal. Vital signs in the emergency department show blood pressure 110/72, heart rate 72, respiratory rate 18, temp 98.8 F, and SpO2 of 92% on room air. Labs were completed and reviewed. CBC unremarkable. BMP and hyponatremia with sodium of 132, hypokalemia with potassium of 3.1 and hypochloremia with chloride of 96. Magnesium was also low at 1.6. Liver profile showing elevated GGT of 158, AST of 79, and ALT of 72. Blood alcohol level was elevated at 262. Navya ent was admitted under our services. Called mobile crisis center with [facility] and spoke with Delphine, received confirmation that patient has a court case on 04/04/2024 for failure to show from previous court case of failure to comply. Mobile crisis center to notify patient's [facility] team and social work regarding recurrent hospitalization. Consult also placed to [facility]'s aids social worker and psychiatry as requested. Physical exam: Patient seen and fully evaluated at bedside. She reports feeling anxious, nauseous, tremulous, and mild diffuse abdominal discomfort. Had long discussion with patient regarding excessive drinking, per patient's request discussed case with [facility] mobile crisis center. Vital signs reviewed and stable. General: Nontoxic, no distress and appears stated age. Derm: Skin warm and dry, normal coloration for ethnicity. Head: Atraumatic, normocephalic and symmetric. Eyes: EOMs intact, no lid lag, and anicteric sclera Mouth: no lip lesions, mucus membranes moist Cardiovascular: regular rate and rhythm with normal S1S2, no murmur, positive posterior tibial pulses bilaterally, and cap refill < 2 seconds. Lungs: Respirations even, regular, and unlabored on room air. Lungs CTA bilaterally, no rhonchi, no rales, no wheezing, and no accessory muscle usage. Abdominal: soft, nontender to palpation, no guarding, no appreciable organomegaly Ext: ROM intact. No gross muscle atrophy, no edema, no contractures Neuro: Speech clear, face symmetrical and CN II-XII grossly intact. Patient with upper extremity tremors noted. Psych: Alert and oriented to person, place, time, and situation. Appropriate and pleasant affect. Assessment and Plan of Care: Alcohol withdrawal in an active alcoholic with DTs History of alcohol abuse including drinking hand tail puller and rubbing alcohol Elevated liver enzymes, secondary to daily alcohol abuse and likely underlying alcoholic cirrhosis -Continue monitoring of CIWA scores and patient to be medicated with Ativan 0.5 mg every 4 hours as needed for CIWA score of 4-5, Ativan 1 mg every 4 hours for CIWA score of 6-7, Ativan 2 mg every 3 hours CIWA score of 8-9, and Ativan 2 mg every 2 hours for CIWA score of 10 or greater. -Continue gentle IV fluid hydration with 0.9% normal saline at 50 cc/h. -Thiamine 100 mg daily, Multivitamin daily, and Folate 1 mg daily -Seizure, fall, and elopement precautions in place. -Continued close monitoring of electrolytes and replace as needed. -Telemetry monitoring. -Liver enzymes elevated with GGT 158, AST of 79, and ALT of 72. Patient also reports nausea and diffuse abdominal discomfort. Order placed for liver ultrasound for further evaluation. -Consult placed to aids social worker and psychiatry for evaluation Hypothyroidism status post thyroidectomy -Continue daily medication regimen with the levothyroxine 150 g daily. Bipolar disorder Depression -Continue daily medication regimen with Lexapro 20 mg daily and Lamictal 100 mg daily. Electrolyte imbalances with Hyponatremia, Hypokalemia, and Hypomagnesemia -Secondary to daily alcohol abuse. Electrolytes were replaced and stable at this time. Data and imaging reviewed: Labs were completed and reviewed. CBC unremarkable. BMP and hyponatremia with sodium of 132, hypokalemia with potassium of 3.1 and hypochloremia with chloride of 96. Magnesium was also low at 1.6. Liver profile showing elevated GGT of 158, AST of 79, and ALT of 72. Repeat morning labs show sodium 138 and potassium of 4.5. Plan signs reviewed. Blood pressure 112/83, heart rate 73, respiratory rate 17, temp 98.8 F, and SpO2 of 95% on room air. CODE STATUS: Full code DVT prophylaxis: Lovenox Anticipated discharge date: Clinical course to determine Anticipated discharge place: Home Patient was seen independently by Nurse Pracitioner. This document was prepared using [employer] dictation software. Please allow for errors in photoengraving proofer apprentice, while rare they do occur. Vahid Ernandez NP rendered care for this patient independently, reviewed the findings and plan as documented in the note above. I did not physically speak with or examine the patient on this date. Objective - Vital Signs Vital signs: Vital Signs Temp 98.8 F 04/02/24 05:00 Pulse 73 04/02/24 05:00 Resp 17 04/02/24 05:00 BP 112/83 04/02/24 05:00 Pulse Ox 95 04/02/24 05:00 FiO2 Intake & Output 04/01/24 04/02/24 04/02/24 18:59 06:59 18:59 Weight 86.183 kg - Labs CBC & Chem 7: 04/01/24 21:29 04/02/24 08:15 Labs: Abnormal Lab Results - Last 24 Hours (Table) 04/01/24 Range/Units 21:50 Sodium 132 L (137-145) mmol/L Potassium 3.1 L (3.5-5.1) mmol/L Chloride 96 L (98-107) mmol/L Glucose 102 H (74-99) mg/dL AST 79 H (14-36) U/L ALT 72 H (4-34) U/L Serum Alcohol 262 H* mg/dL
[2024-04-02] MEDS: MULTIVITAMINS, THERA 1 EACH TAB PO SCH (12:03)
[2024-04-02] MEDS: FOLIC ACID 1 MG TAB PO SCH (12:03)
[2024-04-02] MEDS: ESCITALOPRAM 20 MG TAB PO SCH (12:03)
[2024-04-02] MEDS: LORazepam 2 MG/ML INJ IV PRN (14:50)
[2024-04-02] MEDS: LORazepam 1 MG TAB PO PRN (22:14)
--- NOTE | 2024-04-03 08:03 | US ---
EXAMINATION TYPE: US liver DATE OF EXAM: 04/03/2024 COMPARISON: 09/13/2016 CLINICAL INDICATION: Female, 63 years old with history of elevated GGT; Alcohol intoxication. TECHNIQUE: Multiple sonographic images of the right upper quadrant are obtained. FINDINGS: EXAM MEASUREMENTS: Liver Length: 15.3 cm Gallbladder Wall: 0.2 cm CBD: 7.4 mm Right Kidney: 10.8 x 4.1 x 3.4 cm Ultrasound Coordinator notes: Portable inpatient exam. Pancreas: Limited visualization of head and tail Liver: Limited visualization. Heterogeneous and echogenic. Gallbladder: No stones, wall thickening, or surrounding fluid. Evidence for sonographic Davies's sign: neg CBD: Borderline to mildly dilated (measured 8 mm in 2016) Right Kidney: No hydronephrosis or masses seen IMPRESSION: 1. Heterogeneous and echogenic hepatic parenchyma could reflect hepatic steatosis or other nonspecifi c hepatocellular disease. 2. No gallstones. 3. Borderline to mildly dilated bile duct up to 7.4 mm appears fairly stable compared to 2016 where i t measured 8 mm.
[2024-04-03 08:31] LABS: HCT 36.6 % (37.2-46.3); HGB 12.2 g/dL (12.0-15.0); MCH 32.3 pg (27.0-32.0); MCHC 33.3 g/dL (32.0-37.0); MCV 96.8 FL (80.0-97.0); Mean Platelet Volume 11.3 FL (9.5-12.2); NRBC Per 100 WBC 0 X 10*3/uL (0.00-0.01); Platelet Count 143 X 10*3/uL (140-440); RBC 3.78 X 10*6/uL (4.10-5.20); RDW 15.7 % (11.5-14.5); WBC 3.53 X 10*3/uL (4.50-10.00)
[2024-04-03 09:03] LABS: ALT 58 U/L (8-44); AST 54 U/L (13-35); Albumin 4.2 g/dL (3.8-4.9); Albumin/Globulin Ratio 1.75 Ratio (1.60-3.17); Alkaline Phosphatase 41 U/L (41-126); BUN/Creat Ratio 10.71 Ratio (12.00-20.00); Blood Urea Nitrogen 7.5 mg/dL (9.0-27.0); Calcium 8.6 mg/dL (8.7-10.3); Carbon Dioxide 24.1 mmol/L (21.6-31.8); Chloride 98 mmol/L (96-109); Globulin 2.4 g/dL (1.6-3.3); Glucose 77 mg/dL (70-110); Magnesium 1.9 mg/dL (1.5-2.4); Potassium 4.3 mmol/L (3.5-5.5); Sodium 135 mmol/L (135-145); Total Bilirubin 0.9 mg/dL (0.3-1.2); Total Protein 6.6 g/dL (6.2-8.2)
[2024-04-03 16:36] VITALS: PULSE 66; RESP 18
--- NOTE | 2024-04-03 16:52 | P.DS ---
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 Continue daily medication regimen with the levothyroxine 150 g daily. Bipolar disorder. Continue daily medication regimen with Lexapro 20 mg daily and Lamictal 100 mg daily. Depression. Continue daily medication regimen with Lexapro 20 mg daily and Lamictal 100 mg daily. Electrolyte imbalances with Hyponatremia, Hypokalemia, and Hypomagnesemia Secondary to daily alcohol abuse. Electrolytes were replaced and stable at time of discharge with sodium 135, potassium 4.3, chloride 98, bicarb 24.1, and magnesium of 1.9. Hospital Course: Patient is a 63-year-old female with a past medical history of EtOH abuse, hypothyroidism status post thyroidectomy, depression, and bipolar disorder. Patient is very well-known to our services and hospital. She has had 20 visits and 12 hospitalizations at this facility since November of this year. Multiple attempts have been made to assist patient with placement in outpatient rehab, however patient adamantly declines stating rehab does not help or states that she has to take care of personal things at home first. Patient reports to drinking approximately 2 pints of hard liquor daily and when she does not have liquor available to her she has been drinking hand santizer and has also drank rubbing alcohol and sucked on alcohol pads. She has underwent multiple medical detoxes and upon discharge, pt has returned home to again drink heavily. Pt reports that she folllows with [facility], but states that she has not been compliant with their recommendations and was petitioned for failure to comply and did not show up in court and now has a court date on 04/04/2024 failure to show. Patient again presenting to the emergency department with complaints of alcohol withdrawal. Vital signs in the emergency department show blood pressure 110/72, heart rate 72, respiratory rate 18, temp 98.8 F, and SpO2 of 92% on room air. Labs were completed and reviewed. CBC unremarkable. BMP and hyponatremia with sodium of 132, hypokalemia with potassium of 3.1 and hypochloremia with chloride of 96. Magnesium was also low at 1.6. Liver profile showing elevated GGT of 158, AST of 79, and ALT of 72. Blood alcohol level was elevated at 262. Patient was admitted under our services. Liver ultrasound was completed showing heterogeneous and equally of hepatic parenchyma likely reflecting hepatic steat osis and nonspecific hepatocellular disease and mildly dilated bile duct up to 7.4 mm appears stable when compared to ultrasound completed in 2016 where it measured 8 mm. Patient free from any abdominal discomfort or complaints. She is tolerating oral intake well. Patient reports she is scheduled to be in court tomorrow morning and is medically cleared for discharge at this time. Patient educated on the importance of sustaining from any and all alcohol use. She was evaluated by EPS nurse and psychiatrist who also cleared patient from their perspective for discharge. Patient medically cleared at this time. Physical exam: Vital signs reviewed and stable. General: Nontoxic, no distress and appears stated age. Derm: Skin warm and dry, normal coloration for ethnicity. Head: Atraumatic, normocephalic and symmetric. Eyes: EOMs intact, no lid lag, and anicteric sclera Mouth: no lip lesions, mucus membranes moist Cardiovascular: regular rate and rhythm with normal S1S2, no murmur, positive posterior tibial pulses bilaterally, and cap refill < 2 seconds. Lungs: Respirations even, regular, and unlabored on room air. Lungs CTA bilaterally, no rhonchi, no rales, no wheezing, and no accessory muscle usage. Abdominal: soft, nontender to palpation, no guarding, no appreciable organomegaly Ext: ROM intact. No gross muscle atrophy, no edema, no contractures Neuro: Speech clear, face symmetrical and CN II-XII grossly intact. Patient with upper extremity tremors noted. Psych: Alert and oriented to person, place, time, and situation. Appropriate and pleasant affect. A total of 31 minutes of time were spent preparing this complex discharge summary. Pt was discharged on 04/03/2024 at 4:44 PM. Patient was seen independently by Nurse Practitioner. This document was prepared using Dragon dictation software. Please allow for errors in epic cupid specialists while rare they do occur. Patient Condition at Discharge: Stable Plan - Discharge Summary New Discharge Prescriptions: Continue Folic Acid 1 mg PO DAILY #30 tab Escitalopram [Lexapro] 20 mg PO DAILY 30 Days #30 tab Multivitamins, Thera [Multivitamin (formulary)] 1 cap PO DAILY #30 tab Pantoprazole [Protonix] 40 mg PO AC-BID #60 tab Levothyroxine Sodium [Synthroid] 150 mcg PO DAILY 30 Days #30 tab Melatonin 10 mg PO HS PRN 30 Days #30 tab PRN Reason: Insomnia Acetaminophen Tab [Tylenol] 325 mg PO Q6HR PRN tab PRN Reason: Fever And/ Or Pain Metoprolol Tartrate [Lopressor] 12.5 mg PO BID #60 tab Thiamine [Vitamin B-1] 100 mg PO DAILY #30 tab lamoTRIgine [LaMICtal] 100 mg PO DAILY #30 tab Discharge Medication List Acetaminophen Tab [Tylenol] 325 mg PO Q6HR PRN tab 02/17/24 [Rx] Escitalopram [Lexapro] 20 mg PO DAILY 30 Days #30 tab 02/17/24 [Rx] Folic Acid 1 mg PO DAILY #30 tab 02/17/24 [Rx] Levothyroxine Sodium [Synthroid] 150 mcg PO DAILY 30 Days #30 tab 02/17/24 [Rx] Melatonin 10 mg PO HS PRN 30 Days #30 tab 02/17/24 [Rx] Metoprolol Tartrate [Lopressor] 12.5 mg PO BID #60 tab 02/17/24 [Rx] Multivitamins, Thera [Multivitamin (formulary)] 1 cap PO DAILY #30 tab 02/17/24 [Rx] Pantoprazole [Protonix] 40 mg PO AC-BID #60 tab 02/17/24 [Rx] Thiamine [Vitamin B-1] 100 mg PO DAILY #30 tab 02/17/24 [Rx] lamoTRIgine [LaMICtal] 100 mg PO DAILY #30 tab 02/17/24 [Rx] Follow up Appointment(s)/Referral(s): [facility] [Primary Care Provider] - 1-2 days Patient Instructions/Handouts: Abuse of Alcohol (DC), Alcohol Withdrawal (DC), Medical Clearance for Substance Abuse Treatment (DC) Activity/Diet/Wound Care/Special Instructions: Activity: As tolerated. Take breaks as needed. Diet: Regular diet Special Instructions: We are discharging you home to ensure that you are able to make it to your court case tomorrow. You are medically cleared to go to court. 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 As we have discussed on multiple occasions in the past continued use will only lead to further deterioration of your health up to and including . Thank you for allowing us to participate in your care, it was truly a pleasure having you for our patient!!! Discharge Disposition: HOME SELF-CARE
[2024-04-03 18:15] VITALS: BP 107/67; TEMP 98
== END 2024-04-03 17:45 | disposition home or self-care (01) | DRG 897 ==
LOC: EC 20:21 → 4SSUR 04-02 00:28
PROVIDERS: ADMIT Internal Medicine; ATTEND Internal Medicine
PROC: HZ2ZZZZ Detoxification Services for Substance Abuse Treatment (ICD-10-PCS; principal; 2024-04-02)
DX: F10.231 Alcohol dependence with withdrawal delirium (principal); E87.1 Hypo-osmolality and hyponatremia; K70.30 Alcoholic cirrhosis of liver without ascites; F10.229 Alcohol dependence with intoxication, unspecified; E03.9 Hypothyroidism, unspecified; E83.42 Hypomagnesemia; F31.9 Bipolar disorder, unspecified; F41.9 Anxiety disorder, unspecified; J30.2 Other seasonal allergic rhinitis; Z79.890 Hormone replacement therapy; E87.6 Hypokalemia; E87.8 Other disorders of electrolyte and fluid balance, not elsewhere classified; Z71.41 Alcohol abuse counseling and surveillance of alcoholic; Z63.72 Alcoholism and drug addiction in family; Z79.899 Other long term (current) drug therapy; Z91.199 Patient's noncompliance with other medical treatment and regimen due to unspecified reason; Y90.8 Blood alcohol level of 240 mg/100 ml or more; Z88.1 Allergy status to other antibiotic agents; Z91.51 Personal history of suicidal behavior
CPT/HCPCS: 36415; 76705; 80048; 80053; 80320; 81003; 82977; 83735; 84100; 85025; 85027; 96361; 96365; 96366; 96372; 96375; 96376; 99285

== ENCOUNTER 2024-05-05 22:12 | Emergency (ER) | payer OTHER ==
[2024-05-05 22:21] VITALS: TEMP 98.1
[2024-05-05] MEDS ORDERED: LORazepam 2 MG/ML INJ IV PRN ×2 (22:41)
[2024-05-05] MEDS: SODIUM CHLORIDE 0.9% 1,000 ML IV STA (22:56)
[2024-05-05] MEDS: ONDANSETRON 4 MG/2 ML VIAL IVP STA (22:58)
[2024-05-05] MEDS: LORazepam 2 MG/ML INJ IV PRN (23:00)
[2024-05-05 23:10] LABS: Basophils % (A) 1 %; Eosinophils % (A) 0 %; HCT 40.4 % (34.0-46.0); HGB 13.1 gm/dL (11.4-16.0); Lymphocytes # (A) 1.1 k/uL (1.0-4.8); Lymphocytes % (A) 33 %; MCHC 32.3 g/dL (31.0-37.0); MCV 95.9 fL (80.0-100.0); Mean Platelet Volume 8.5; Monocytes # (A) 0.2 k/uL (0-1.0); Monocytes % (A) 7 %; Neutrophils # (A) 1.7 k/uL (1.3-7.7); Neutrophils % (A) 55 %; Platelet Count 172 k/uL (150-450); RBC 4.21 m/uL (3.80-5.40); RDW 15.4 % (11.5-15.5); WBC 3.2 k/uL (3.8-10.6)
[2024-05-05 23:23] LABS: ALT 86 U/L (4-34); AST 113 U/L (14-36); African American GFR (CKD) >90 (>60 ml/min/1.73 sqM); Albumin 4.8 g/dL (3.5-5.0); Alkaline Phosphatase 51 U/L (38-126); Amylase 39 U/L (30-110); Anion Gap 15 mmol/L; Blood Urea Nitrogen 12 mg/dL (7-17); Calcium 9.3 mg/dL (8.4-10.2); Carbon Dioxide 23 mmol/L (22-30); Chloride 106 mmol/L (98-107); Glucose 88 mg/dL (74-99); Lipase 99 U/L (23-300); Magnesium 1.6 mg/dL (1.6-2.3); Non-African American GFR(CKD) >90 (>60 ml/min/1.73 sqM); Sodium 144 mmol/L (137-145); Total Bilirubin 0.6 mg/dL (0.2-1.3); Total Protein 7.8 g/dL (6.3-8.2)
[2024-05-06 01:00] VITALS: RESP 16
--- NOTE | 2024-05-06 01:33 | ED ---
Alcohol HPI - General Chief Complaint: Alcohol Stated Complaint: Nausea, Vomiting Time Seen by Provider: 05/05/24 22:31 Source: patient Mode of arrival: wheelchair - History of Present Illness Initial Comments: 63-year-old female presenting for alcohol intoxication. Patient was brought in by her boyfriend. She is a daily drinker, normally drinks about a pint per day. Last drink was earlier today. Her boyfriend states that his plan is for her to come stay at his house while she is detoxing. No chest pain, difficulty breathing, URI-like symptoms, abdominal pain. - Related Data Previous Rx's Medication Instructions Recorded Acetaminophen Tab [Tylenol] 325 mg PO Q6HR PRN tab 02/17/24 Escitalopram [Lexapro] 20 mg PO DAILY 30 Days #30 tab 02/17/24 Folic Acid 1 mg PO DAILY #30 tab 02/17/24 Levothyroxine Sodium [Synthroid] 150 mcg PO DAILY 30 Days #30 tab 02/17/24 Melatonin 10 mg PO HS PRN 30 Days #30 tab 02/17/24 Metoprolol Tartrate [Lopressor] 12.5 mg PO BID #60 tab 02/17/24 Multivitamins, Thera [Multivitamin 1 cap PO DAILY #30 tab 02/17/24 (formulary)] Pantoprazole [Protonix] 40 mg PO AC-BID #60 tab 02/17/24 Thiamine [Vitamin B-1] 100 mg PO DAILY #30 tab 02/17/24 lamoTRIgine [LaMICtal] 100 mg PO DAILY #30 tab 02/17/24 Allergies Allergy/AdvReac Type Severity Reaction Status Date / Time clindamycin Allergy Unknown Rash/Hives Verified 05/05/24 22:20 acetylcysteine AdvReac Anaphylaxis Verified 05/05/24 22:20 [From Mucomyst] citalopram [From Celexa] AdvReac Hallucinati Verified 05/05/24 22:20 ons diphenhydramine HCl AdvReac Rapid Verified 05/05/24 22:20 [From Benadryl] Heart Rate Review of Systems ROS Statement: Those systems with pertinent positive or pertinent negative responses have been documented in the HPI. ROS Other: All systems not noted in ROS Statement are negative. Past Medical History Past Medical History: Asthma, Cancer, Hypertension, Thyroid Disorder Additional Past Medical History / Comment(s): History of goiter status post thyroidectomy, questionable history of thyroid cancer although this is not clear, bipolar disorder, depression, history of suicidal ideations, history of drug overdose, alcoholism, seasonal rhinitis, psoriasis, breast cysts, history of broken toes in the right foot, History of Any Multi-Drug Resistant Organisms: None Reported Past Surgical History: No Surgical Hx Reported Additional Past Surgical History / Comment(s): Thyroidectomy 1999, SKIN NEVI REMOVED Past Anesthesia/Blood Transfusion Reactions: Previous Problems w/ Anesthesia, Postoperative Nausea & Vomiting (PONV) Additional Past Anesthesia/Blood Transfusion Reaction / Comment(s): Lives in a house with two roommates. ETOH. Pt no longer has a drivers license- she has had 2 DUI's. 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 She has lost several jobs d/t dave [employer]. She is seen at [facility]. Past Psychological History: Anxiety, Bipolar, Depression Smoking Status: Never smoker Past Alcohol Use History: Abuse, Daily, Heavy Past Drug Use History: None Reported - Past Family History Father Family Medical History: Cancer Additional Family Medical History / Comment(s): Father at age 64 of esophageal cancer. Father was an alcoholic and had cirrhosis of the liver. Mother Family Medical History: Cancer Additional Family Medical History / Comment(s): Mother of breast cancer at age 42yrs. General Exam General appearance: alert, in no apparent distress Head exam: Present: atraumatic, normocephalic Eye exam: Present: normal appearance, EOMI Neck exam: Present: normal inspection. Absent: meningismus Respiratory exam: Present: normal lung sounds bilaterally. Absent: respiratory distress, wheezes, rales, rhonchi, stridor Cardiovascular Exam: Present: regular rate, normal rhythm, normal heart sounds. Absent: systolic murmur, diastolic murmur, rubs, gallop, clicks Neurological exam: Present: alert (Intoxicated but oriented) Psychiatric exam: Present: normal affect, normal mood Skin exam: Present: normal color Course Vital Signs 05/05/24 05/05/24 05/05/24 22:18 23:48 23:49 Temperature 98.1 F Pulse Rate 77 72 72 Respiratory 18 15 15 Rate Blood Pressure 129/87 119/77 O2 Sat by Pulse 96 83 L 97 Oximetry 05/06/24 05/06/24 05/06/24 00:58 01:44 01:57 Temperature Pulse Rate 67 92 95 Respiratory 16 16 16 Rate Blood Pressure 111/71 135/89 O2 Sat by Pulse 97 97 95 Oximetry Medical Decision Making - Medical Decision Making Was pt. sent in by a medical professional or institution ([facility], [employer], urgent care, hospital, or alf...) When possible be specific @ -No Did you speak to anyone other than the patient for history (EMS, parent, family, police, friend...)? What history was obtained from this source @ -No Did you review nursing and triage notes (agree or disagree)? Why? @ -I reviewed and agree with nursing and triage notes Were old charts reviewed (outside hosp., previous admission, EMS record, old EKG, old radiological studies, urgent care reports/EKG's, alf records)? Report findings @ -No old charts were reviewed Differential Diagnosis (chest pain, altered mental status, abdominal pain women, abdominal pain men, vaginal bleeding, weakness, fever, dyspnea, syncope, headache, dizziness, GI bleed, back pain, seizure, CVA, palpatations, mental health, musculoskeletal)? @ -Not applicable EKG interpreted by me (3pts min.). @ -As above X-rays interpreted by me (1pt min.). @ -None done CT interpreted by me (1pt min.). @ -None done U/S interpreted by me (1pt. min.). @ -None done What testing was considered but not performed or refused? (CT, X-rays, U/S, labs)? Why? @ -None What meds were considered but not given or refused? Why? @ -None Did you discuss the management of the patient with other professionals (professionals i.e. [facility], [employer], lab, RT, psych nurse, social human services assistants, entertainer & comic, teacher, information assurance officer, casework manager)? Give summary @ -No Was smoking cessation discussed for >3mins.? @ -No Was critical care preformed (if so, how long)? @ -No Were there social determinants of health that impacted care today? How? (Homelessness, low income, unemployed, alcoholism, drug addiction, transportation, low edu. Level, literacy, decrease access to med. care, assisted, rehab)? @ -No Was there de-escalation of care discussed even if they declined (Discuss DNR or withdrawal of care, Hospice)? DNR status @ -No What co-morbidities impacted this encounter? (DM, HTN, Smoking, COPD, CAD, Cancer, CVA, ARF, Chemo, Hep., AIDS, mental health diagnosis, sleep apnea, morb id obesity)? @ -None Was patient admitted / discharged? Hospital course, mention meds given and rou te, prescriptions, significant lab abnormalities, going to OR and other pertinent info. @ -63-year-old female brought in by her boyfriend for alcohol intoxication. Their plan includes having the patient come state her boyfriend's house while she detoxes. History and physical exam are conducted. Patient received 1 dose of Ativan. Labs returned which require no action. Patient will be discharged home with her boyfriend. Discharged. Follow-up with PCP. Report back to ER with any new or worsening symptoms. Discussed return parameters and answered all questions. Patient conveyed verbal understanding and agreed to the plan. I discussed this case in detail with my attending Dr. Hayes Undiagnosed new problem with uncertain prognosis? @ -No Drug Therapy requiring intensive monitoring for toxicity (Heparin, Nitro, Insulin, Cardizem)? @ -No Were any procedures done? @ -No Diagnosis/symptom? @ -Alcohol intoxication Acute, or Chronic, or Acute on Chronic? @ -Acute Uncomplicated (without systemic symptoms) or Complicated (systemic symptoms)? @ -Uncomplicated Side effects of treatment? @ -No Exacerbation, Progression, or Severe Exacerbation? @ -No Poses a threat to life or bodily function? How? (Chest pain, USA, ND, pneumonia, PE, COPD, DKA, ARF, appy, cholecystitis, CVA, Diverticulitis, Homicidal, Suicidal, threat to staff... and all critical care pts) @ -Low likelihood - Lab Data Result diagrams: 05/05/24 23:04 05/05/24 23:04 Lab Results 05/05/24 05/05/24 Range/Units 23:04 23:04 WBC 3.2 L (3.8-10.6) k/uL RBC 4.21 (3.80-5.40) m/uL Hgb 13.1 (11.4-16.0) gm/dL Hct 40.4 (34.0-46.0) % MCV 95.9 (80.0-100.0) fL MCH 31.0 (25.0-35.0) pg MCHC 32.3 (31.0-37.0) g/dL RDW 15.4 (11.5-15.5) % Plt Count 172 (150-450) k/uL MPV 8.5 Neutrophils % 55 % Lymphocytes % 33 % Monocytes % 7 % Eosinophils % 0 % Basophils % 1 % Neutrophils # 1.7 (1.3-7.7) k/uL Lymphocytes # 1.1 (1.0-4.8) k/uL Monocytes # 0.2 (0-1.0) k/uL Eosinophils # 0.0 (0-0.7) k/uL Basophils # 0.0 (0-0.2) k/uL Sodium 144 (137-145) mmol/L Potassium 4.0 (3.5-5.1) mmol/L Chloride 106 (98-107) mmol/L Carbon Dioxide 23 (22-30) mmol/L Anion Gap 15 mmol/L BUN 12 (7-17) mg/dL Creatinine 0.55 (0.52-1.04) mg/dL Est GFR (CKD-EPI)AfAm >90 (>60 ml/min/1.73 sqM) Est GFR (CKD-EPI)NonAf >90 (>60 ml/min/1.73 sqM) Glucose 88 (74-99) mg/dL Calcium 9.3 (8.4-10.2) mg/dL Magnesium 1.6 (1.6-2.3) mg/dL Total Bilirubin 0.6 (0.2-1.3) mg/dL AST 113 H (14-36) U/L ALT 86 H (4-34) U/L Alkaline Phosphatase 51 (38-126) U/L Total Protein 7.8 (6.3-8.2) g/dL Albumin 4.8 (3.5-5.0) g/dL Amylase 39 (30-110) U/L Lipase 99 (23-300) U/L Disposition Clinical Impression: Alcohol intoxication Disposition: HOME SELF-CARE Condition: Fair Instructions (If sedation given, give patient instructions): Alcohol Int oxication (ED) Additional Instructions: Follow-up with PCP. Report back to ER with any new or worsening symptoms. Is patient prescribed a controlled substance at d/c from ED?: No Referrals: [facility] [Primary Care Provider] - 1-2 days Time of Disposition: 01:32
[2024-05-06 01:59] VITALS: BP 135/89; PULSE 95
== END 2024-05-06 01:59 | disposition home or self-care (01) ==
LOC: EC 22:12
DX: F10.129 Alcohol abuse with intoxication, unspecified (principal); Z88.8 Allergy status to other drugs, medicaments and biological substances
CPT/HCPCS: 82075; 36415; 80053; 82150; 83690; 83735; 85025; 99284; 96374; 96375; 96361; J2060; J2405

== ENCOUNTER 2024-05-09 11:34 | Emergency (ER) | payer OTHER ==
[2024-05-09 11:39] VITALS: RESP 18; TEMP 98.5
[2024-05-09] MEDS: SODIUM CHLORIDE 0.9% 2,000 ML IV ONE (11:45)
[2024-05-09 12:12] LABS: Basophils % (A) 1 %; Eosinophils % (A) 1 %; HCT 38.2 % (34.0-46.0); HGB 12.9 gm/dL (11.4-16.0); Lymphocytes # (A) 0.8 k/uL (1.0-4.8); Lymphocytes % (A) 26 %; MCH 32.1 pg (25.0-35.0); MCHC 33.7 g/dL (31.0-37.0); MCV 95.2 fL (80.0-100.0); Mean Platelet Volume 9.4; Monocytes # (A) 0.2 k/uL (0-1.0); Monocytes % (A) 5 %; Neutrophils # (A) 1.9 k/uL (1.3-7.7); Neutrophils % (A) 64 %; Platelet Count 134 k/uL (150-450); RBC 4.02 m/uL (3.80-5.40); RDW 15.8 % (11.5-15.5)
--- NOTE | 2024-05-09 12:14 | ED ---
Alcohol HPI - General Chief Complaint: Alcohol Stated Complaint: ETOH Time Seen by Provider: 05/09/24 11:35 Source: patient, EMS, RN notes reviewed Mode of arrival: EMS Limitations: no limitations - History of Present Illness Initial Comments: 63-year-old female presents emergency department via EMS from [place]. Patient reportedly was checking in for rehab and when she had breath alcohol greater than 0.2. Patient has no complaints. Patient does admit that she drank half a pint this morning. Patient denies any chest pain shortness of breath headache dizziness no other associated symptoms denies being suicidal - Related Data Previous Rx's Medication Instructions Recorded Acetaminophen Tab [Tylenol] 325 mg PO Q6HR PRN tab 02/17/24 Escitalopram [Lexapro] 20 mg PO DAILY 30 Days #30 tab 02/17/24 Folic Acid 1 mg PO DAILY #30 tab 02/17/24 Levothyroxine Sodium [Synthroid] 150 mcg PO DAILY 30 Days #30 tab 02/17/24 Melatonin 10 mg PO HS PRN 30 Days #30 tab 02/17/24 Metoprolol Tartrate [Lopressor] 12.5 mg PO BID #60 tab 02/17/24 Multivitamins, Thera [Multivitamin 1 cap PO DAILY #30 tab 02/17/24 (formulary)] Pantoprazole [Protonix] 40 mg PO AC-BID #60 tab 02/17/24 Thiamine [Vitamin B-1] 100 mg PO DAILY #30 tab 02/17/24 lamoTRIgine [LaMICtal] 100 mg PO DAILY #30 tab 02/17/24 Allergies Allergy/AdvReac Type Severity Reaction Status Date / Time clindamycin Allergy Unknown Rash/Hives Verified 05/09/24 13:28 acetylcysteine AdvReac Anaphylaxis Verified 05/09/24 13:28 [From Mucomyst] citalopram [From Celexa] AdvReac Hallucinati Verified 05/09/24 13:28 ons diphenhydramine HCl AdvReac Rapid Verified 05/09/24 13:28 [From Benadryl] Heart Rate Review of Systems ROS Statement: Those systems with pertinent positive or pertinent negative responses have been documented in the HPI. ROS Other: All systems not noted in ROS Statement are negative. Past Medical History Past Medical History: Asthma, Cancer, Hypertension, Thyroid Disorder Additional Past Medical History / Comment(s): History of goiter status post thyroidectomy, questionable history of thyroid cancer although this is not clear, bipolar disorder, depression, history of suicidal ideations, history of drug overdose, alcoholism, seasonal rhinitis, psoriasis, breast cysts, history of broken toes in the right foot, History of Any Multi-Drug Resistant Organisms: None Reported Past Surgical History: No Surgical Hx Reported Additional Past Surgical History / Comment(s): Thyroidectomy 1999, SKIN NEVI REMOVED Past Anesthesia/Blood Transfusion Reactions: Previous Problems w/ Anesthesia, Postoperative Nausea & Vomiting (PONV) Additional Past Anesthesia/Blood Transfusion Reaction / Comment(s): Lives in a house with two roommates. ETOH. Pt no longer has a drivers license- she has had 2 DUI's. 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 She is seen at [facility]. Past Psychological History: Anxiety, Bipolar, Depression Smoking Status: Never smoker Past Alcohol Use History: Abuse, Daily, Heavy Past Drug Use History: None Reported - Past Family History Father Family Medical History: Cancer Additional Family Medical History / Comment(s): Father at age 64 of esophageal cancer. Father was an alcoholic and had cirrhosis of the liver. Mother Family Medical History: Cancer Additional Family Medical History / Comment(s): Mother of breast cancer at age 42yrs. General Exam Limitations: altered mental status General appearance: alert, in no apparent distress Head exam: Present: atraumatic, normocephalic, normal inspection Eye exam: Present: normal appearance, PERRL, EOMI. Absent: scleral icterus, conjunctival injection, periorbital swelling ENT exam: Present: normal exam, mucous membranes moist Neck exam: Present: normal inspection, full ROM. Absent: tenderness, meningismus, lymphadenopathy Respiratory exam: Present: normal lung sounds bilaterally. Absent: respiratory distress, wheezes, rales, rhonchi, stridor Cardiovascular Exam: Present: regular rate, normal rhythm, normal heart sounds. Absent: systolic murmur, diastolic murmur, rubs, gallop, clicks GI/Abdominal exam: Present: soft, normal bowel sounds. Absent: distended, tenderness, guarding, rebound, rigid Neurological exam: Present: alert, oriented X3, CN II-XII intact Course Vital Signs 05/09/24 05/09/24 05/09/24 11:36 11:43 14:25 Temperature 98.5 F Pulse Rate 90 90 88 Respiratory 18 18 18 Rate Blood Pressure 136/95 119/79 124/79 O2 Sat by Pulse 85 L 96 99 Oximetry Medical Decision Making - Medical Decision Making Was pt. sent in by a medical professional or institution (, EDY, MANAGER CLEANING, urgent care, hospital, or longterm...) When possible be specific @ -[place] Did you speak to anyone other than the patient for history (EMS, parent, family, police, friend...)? What history was obtained from this source @ -No Did you review nursing and triage notes (agree or disagree)? Why? @ -I reviewed and agree with nursing and triage notes Were old charts reviewed (outside hosp., previous admission, EMS record, old EKG, old radiological studies, urgent care reports/EKG's, longterm records)? Report findings @ -No old charts were reviewed Differential Diagnosis (chest pain, altered mental status, abdominal pain women, abdominal pain men, vaginal bleeding, weakness, fever, dyspnea, syncope, headache, dizziness, GI bleed, back pain, seizure, CVA, palpatations, mental health, musculoskeletal)? @ -Alcohol use, alcohol intoxication, alcohol withdrawal EKG interpreted by me (3pts min.). @ -None X-rays interpreted by me (1pt min.). @ -None done CT interpreted by me (1pt min.). @ -None done U/S interpreted by me (1pt. min.). @ -None done What testing was considered but not performed or refused? (CT, X-rays, U/S, labs)? Why? @ -None What meds were considered but not given or refused? Why? @ -None Did you discuss the management of the patient with other professionals (professionals i.e. [facility], MANAGER CLEANING, lab, RT, psych nurse, manager social media, wood buffer, teacher, fire officer, casework supervisor)? Give summary @ -Did discuss sending patient back to [place] for treatment patient was refused by [place] stating that she did not complete intake and that she needs to reschedule. Was smoking cessation discussed for >3mins.? @ -No Was critical care preformed (if so, how long)? @ -No Were there social determinants of health that impacted care today? How? (Homelessness, low income, unemployed, alcoholism, drug addiction, transportation, low edu. Level, literacy, decrease access to med. care, [facility], rehab)? @ -No Was there de-escalation of care discussed even if they declined (Discuss DNR or withdrawal of care, Hospice)? DNR status @ -No What co-morbidities impacted this encounter? (DM, HTN, Smoking, COPD, CAD, Cancer, CVA, ARF, Chemo, Hep., AIDS, mental health diagnosis, sleep apnea, morbid obesity)? @ -None Was patient admitted / discharged? Hospital course, mention meds given and route, prescriptions, significant lab abnormalities, going to OR and other pertinent info. @ -Discharged the patient's after evaluation emergency department patient had acute intoxication no other acute process patient did have mild hypomagnesemia given oral replacement. Undiagnosed new problem with uncertain prognosis? @ -No Drug Therapy requiring intensive monitoring for toxicity (Heparin, Nitro, Insulin, Cardizem)? @ -No Were any procedures done? @ -No Diagnosis/symptom? @ -Alcohol abuse, alcohol intoxication Acute, or Chronic, or Acute on Chronic? @ -acute Uncomplicated (without systemic symptoms) or Complicated (systemic symptoms)? @ -Complicated Side effects of treatment? @ -No Exacerbation, Progression, or Severe Exacerbation? @ -No Poses a threat to life or bodily function? How? (Chest pain, [place], [place], pneumonia, PE, COPD, DKA, ARF, appy, cholecystitis, CVA, Diverticulitis, Homicidal, Suicidal, threat to staff... and all critical care pts) @ -No - Lab Data Result diagrams: 05/09/24 11:47 05/09/24 11:47 Lab Results 05/09/24 05/09/24 Range/Units 11:47 11:47 WBC 3.0 L (3.8-10.6) k/uL RBC 4.02 (3.80-5.40) m/uL Hgb 12.9 (11.4-16.0) gm/dL Hct 38.2 (34.0-46.0) % MCV 95.2 (80.0-100.0) fL MCH 32.1 (25.0-35.0) pg MCHC 33.7 (31.0-37.0) g/dL RDW 15.8 H (11.5-15.5) % Plt Count 134 L (150-450) k/uL MPV 9.4 Neutrophils % 64 % Lymphocytes % 26 % Monocytes % 5 % Eosinophils % 1 % Basophils % 1 % Neutrophils # 1.9 (1.3-7.7) k/uL Lymphocytes # 0.8 L (1.0-4.8) k/uL Monocytes # 0.2 (0-1.0) k/uL Eosinophils # 0.0 (0-0.7) k/uL Basophils # 0.0 (0-0.2) k/uL Sodium 145 (137-145) mmol/L Potassium 3.7 (3.5-5.1) mmol/L Chloride 107 (98-107) mmol/L Carbon Dioxide 23 (22-30) mmol/L Anion Gap 15 mmol/L BUN 13 (7-17) mg/dL Creatinine 0.63 (0.52-1.04) mg/dL Est GFR (CKD-EPI)AfAm >90 (>60 ml/min/1.73 sqM) Est GFR (CKD-EPI)NonAf >90 (>60 ml/min/1.73 sqM) Glucose 118 H (74-99) mg/dL Calcium 8.6 (8.4-10.2) mg/dL Magnesium 1.4 L (1.6-2.3) mg/dL Total Bilirubin 0.6 (0.2-1.3) mg/dL AST 102 H (14-36) U/L ALT 73 H (4-34) U/L Alkaline Phosphatase 46 (38-126) U/L Total Protein 7.2 (6.3-8.2) g/dL Albumin 4.5 (3.5-5.0) g/dL Lipase 93 (23-300) U/L Disposition Clinical Impression: Alcoholism /alcohol abuse, Alcohol intoxication Disposition: HOME SELF-CARE Condition: Fair Instructions (If sedation given, give patient instructions): Alcohol Intoxication (ED) Is patient prescribed a controlled substance at d/c from ED?: No Referrals: [facility] [Primary Care Provider] - 1-2 days Time of Disposition: 14:25
[2024-05-09 12:43] LABS: ALT 73 U/L (4-34); AST 102 U/L (14-36); African American GFR (CKD) >90 (>60 ml/min/1.73 sqM); Albumin 4.5 g/dL (3.5-5.0); Alkaline Phosphatase 46 U/L (38-126); Anion Gap 15 mmol/L; Blood Urea Nitrogen 13 mg/dL (7-17); Calcium 8.6 mg/dL (8.4-10.2); Carbon Dioxide 23 mmol/L (22-30); Chloride 107 mmol/L (98-107); Glucose 118 mg/dL (74-99); Lipase 93 U/L (23-300); Magnesium 1.4 mg/dL (1.6-2.3); Non-African American GFR(CKD) >90 (>60 ml/min/1.73 sqM); Potassium 3.7 mmol/L (3.5-5.1); Sodium 145 mmol/L (137-145); Total Bilirubin 0.6 mg/dL (0.2-1.3); Total Protein 7.2 g/dL (6.3-8.2)
[2024-05-09] MEDS: MAGNESIUM OXIDE 400 MG TAB PO STA (13:02)
[2024-05-09 14:28] VITALS: BP 124/79; PULSE 88
== END 2024-05-09 14:27 | disposition home or self-care (01) ==
LOC: EC 11:34
DX: F10.229 Alcohol dependence with intoxication, unspecified (principal); E83.42 Hypomagnesemia; Z88.1 Allergy status to other antibiotic agents; Z88.8 Allergy status to other drugs, medicaments and biological substances
CPT/HCPCS: 36415; 80053; 82075; 83690; 83735; 85025; 96360; 99284

== ENCOUNTER 2024-05-14 09:26 | Observation (INO) | payer OTHER ==
--- NOTE | 2024-05-14 09:38 | ED ---
Alcohol HPI - General Chief Complaint: Alcohol Stated Complaint: ETOH Time Seen by Provider: 05/14/24 09:37 Source: patient, RN notes reviewed, old records reviewed Mode of arrival: wheelchair Limitations: no limitations - History of Present Illness Initial Comments: This is a 63-year-old female well-known to this emergency department today. She presents today for alcohol intoxication. She states she has been trying to going to [place] and get into [facility] but she has been unable. Patient has no significant changes in her drinking, patient does admit to a significant of alcohol intake today MD Complaint: alcohol intoxication, alcohol withdrawal, alcohol dependence, desires rehab, medical clearance for detox facility Last Drink: just MANAGER ENGLISH -: minute(s) Previous Visits for Alcohol Intoxication?: Yes Recent Trauma: Yes Associated Symptoms: denies other symptoms Treatments Prior to Arrival: none Chronic Alcohol Use: Yes - Related Data Home Medications Medication Instructions Recorded Confirmed Melatonin 10 mg PO HS PRN 05/14/24 05/14/24 Previous Rx's Medication Instructions Recorded Escitalopram [Lexapro] 20 mg PO DAILY 30 Days #30 tab 02/17/24 Folic Acid 1 mg PO DAILY #30 tab 02/17/24 Levothyroxine Sodium [Synthroid] 150 mcg PO DAILY 30 Days #30 tab 02/17/24 Metoprolol Tartrate [Lopressor] 12.5 mg PO BID #60 tab 02/17/24 Multivitamins, Thera [Multivitamin 1 cap PO DAILY #30 tab 02/17/24 (formulary)] Pantoprazole [Protonix] 40 mg PO AC-BID #60 tab 02/17/24 Thiamine [Vitamin B-1] 100 mg PO DAILY #30 tab 02/17/24 lamoTRIgine [LaMICtal] 100 mg PO DAILY #30 tab 02/17/24 Allergies Allergy/AdvReac Type Severity Reaction Status Date / Time clindamycin Allergy Unknown Rash/Hives Verified 05/14/24 11:51 acetylcysteine AdvReac Anaphylaxis Verified 05/14/24 11:51 [From Mucomyst] citalopram [From Celexa] AdvReac Hallucinati Verified 05/14/24 11:51 ons diphenhydramine HCl AdvReac Rapid Verified 05/14/24 11:51 [From Benadryl] Heart Rate Review of Systems ROS Statement: Those systems with pertinent positive or pertinent negative responses have been documented in the HPI. ROS Other: All systems not noted in ROS Statement are negative. Past Medical History Past Medical History: Asthma, Cancer, Hypertension, Thyroid Disorder Additional Past Medical History / Comment(s): History of goiter status post thyroidectomy, questionable history of thyroid cancer although this is not clear, bipolar disorder, depression, history of suicidal ideations, history of drug overdose, alcoholism, seasonal rhinitis, psoriasis, breast cysts, history of broken toes in the right foot, History of Any Multi-Drug Resistant Organisms: None Reported Past Surgical History: No Surgical Hx Reported Additional Past Surgical History / Comment(s): Thyroidectomy 1999, SKIN NEVI REMOVED Past Anesthesia/Blood Transfusion Reactions: Previous Problems w/ Anesthesia, Postoperative Nausea & Vomiting (PONV) Additional Past Anesthesia/Blood Transfusion Reaction / Comment(s): Lives in a house with two roommates. ETOH. Pt no longer has a drivers license- she has had 2 DUI's. 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 She is seen at [facility]. Past Psychological History: Anxiety, Bipolar, Depression Smoking Status: Never smoker Past Alcohol Use History: Abuse, Daily, Heavy Past Drug Use History: None Reported - Past Family History Father Family Medical History: Cancer Additional Family Medical History / Comment(s): Father at age 64 of esophageal cancer. Father was an alcoholic and had cirrhosis of the liver. Mother Family Medical History: Cancer Additional Family Medical History / Comment(s): Mother of breast cancer at age 42yrs. General Exam Limitations: no limitations General appearance: alert, appears intoxicated, anxious Head exam: Present: atraumatic, normocephalic, normal inspection Eye exam: Present: normal appearance, PERRL, EOMI. Absent: scleral icterus, conjunctival injection, periorbital swelling ENT exam: Present: normal exam, mucous membranes moist Neck exam: Present: normal inspection. Absent: tenderness, meningismus, lymphadenopathy Respiratory exam: Present: normal lung sounds bilaterally. Absent: respiratory distress, wheezes, rales, rhonchi, stridor Cardiovascular Exam: Present: regular rate, normal rhythm, normal heart sounds. Absent: systolic murmur, diastolic murmur, rubs, gallop, clicks GI/Abdominal exam: Present: soft, normal bowel sounds. Absent: distended, tenderness, guarding, rebound, rigid Extremities exam: Present: normal inspection, full ROM, normal capillary refill. Absent: tenderness, pedal edema, joint swelling, calf tenderness Back exam: Present: normal inspection Neurological exam: Present: alert, oriented X3, CN II-XII intact Psychiatric exam: Present: normal affect, normal mood Skin exam: Present: warm, dry, intact, normal color. Absent: rash Course Vital Signs 05/14/24 05/14/24 05/14/24 09:28 16:15 20:00 Temperature 97.9 F Pulse Rate 87 83 Respiratory 18 18 19 Rate Blood Pressure 117/83 135/94 O2 Sat by Pulse 94 L 96 Oximetry 05/14/24 20:02 Temperature Pulse Rate 89 Respiratory 16 Rate Blood Pressure 125/80 O2 Sat by Pulse 97 Oximetry - Reevaluation(s) Reevaluation #1: Records reviewed Reevaluation #2: Patient symptoms improved unchanged Reevaluation #3: Patient informed of results questions answered Reevaluation #4: Was pt. sent in by a medical professional or institution (, PA, PROPOSAL REVIEW ANALYST, urgent care, hospital, or residential...) When possible be specific @ -no Did you speak to anyone other than the patient for history (EMS, parent, family, police, friend...)? What history was obtained from this source @ -no Did you review nursing and triage notes (agree or disagree)? Why? @ -agree Are old charts reviewed (outside hosp., previous admission, EMS record, old EKG, old radiological studies, urgent care reports/EKG's, residential records)? Report findings @ -yes Differential Diagnosis (chest pain, altered mental status, abdominal pain women, abdominal pain men, vaginal bleeding, weakness, fever, dyspnea, syncope, headache, dizziness, GI bleed, back pain, seizure, CVA, palpatations, mental health, musculoskeletal)? @ -prior EKG interpreted by me (3pts min.). @ -yes X-rays interpreted by me (1pt min.). @ -yes negative for acute disease CT interpreted by me (1pt min.). @ -no U/S interpreted by me (1pt. min.). @ -no What testing was considered but not performed or refused? (CT, X-rays, U/S, labs)? Why? @ -none What meds were considered but not given or refused? Why? @ -none Did you discuss the management of the patient with other professionals (professionals i.e. , PA, PROPOSAL REVIEW ANALYST, lab, RT, psych nurse, child welfare social worker, unmanned equipment operator, teacher, canine enforcement officer, major case detective)? Give summary @ -no Was smoking cessation discussed for >3mins.? @ -no Was critical care preformed (if so, how long)? @ -no Were there social determinants of health that impacted care today? How? (Homelessness, low income, unemployed, alcoholism, drug addiction, transportation, low edu. Level, literacy, decrease access to med. care, custodial, rehab)? @ -none Was there de-escalation of care discussed even if they declined (Discuss DNR or withdrawal of care, Hospice)? DNR status @ -no What co-morbidities impacted this encounter? (DM, HTN, Smoking, COPD, CAD, Cancer, CVA, ARF, Chemo, Hep., AIDS, mental health diagnosis, sleep apnea, morbid obesity)? @ -none Was patient admitted / discharged? Hospital course, mention meds given and route, prescriptions, significant lab abnormalities, going to OR and other pertinent info. @ - Undiagnosed new problem with uncertain prognosis? @ -no Drug Therapy requiring intensive monitoring for toxicity (Heparin, Nitro, Insulin, Cardizem)? @ -no Were any procedures done? @ -no Diagnosis/symptom? @ - Acute, or Chronic, or Acute on Chronic? @ -Acute Uncomplicated (without systemic symptoms) or Complicated (systemic symptoms)? @ -Complicated Side effects of treatment? @ -no Exacerbation, Progression, or Severe Exacerbation? @ -exacerbation Poses a threat to life or bodily function? How? (Chest pain, [place], [place], pneumonia, PE, COPD, DKA, ARF, appy, cholecystitis, CVA, Diverticulitis, Homicidal, Suicidal, threat to staff... and all critical care pts) @ -yes - Consultations Consultation #1: With sound who agrees to admit this patient Medical Decision Making - Medical Decision Making 63 female will be admitted for significant alcohol intoxication greater than 400 with likely DTs - Lab Data Result diagrams: 05/15/24 03:36 05/15/24 03:36 Lab Results 05/14/24 05/14/24 Range/Units 10:18 10:18 WBC 2.0 L (3.8-10.6) k/uL RBC 4.32 (3.80-5.40) m/uL Hgb 13.3 (11.4-16.0) gm/dL Hct 42.5 (34.0-46.0) % MCV 98.4 (80.0-100.0) fL MCH 30.8 (25.0-35.0) pg MCHC 31.3 (31.0-37.0) g/dL RDW 16.4 H (11.5-15.5) % Plt Count 91 L (150-450) k/uL MPV 9.0 Neutrophils % 61 % Lymphocytes % 28 % Monocytes % 6 % Eosinophils % 1 % Basophils % 1 % Neutrophils # 1.2 L (1.3-7.7) k/uL Lymphocytes # 0.6 L (1.0-4.8) k/uL Monocytes # 0.1 (0-1.0) k/uL Eosinophils # 0.0 (0-0.7) k/uL Basophils # 0.0 (0-0.2) k/uL Manual Slide Review Performed Anisocytosis Slight Macrocytosis Slight Sodium 143 (137-145) mmol/L Potassium 4.1 (3.5-5.1) mmol/L Chloride 99 (98-107) mmol/L Carbon Dioxide 17 L (22-30) mmol/L Anion Gap 27 mmol/L BUN 13 (7-17) mg/dL Creatinine 0.75 (0.52-1.04) mg/dL Est GFR (CKD-EPI)AfAm >90 (>60 ml/min/1.73 sqM) Est GFR (CKD-EPI)NonAf 85 (>60 ml/min/1.73 sqM) Glucose 61 L (74-99) mg/dL Calcium 8.7 (8.4-10.2) mg/dL Phosphorus 5.4 H (2.5-4.5) mg/dL Magnesium 1.5 L (1.6-2.3) mg/dL Total Bilirubin 1.0 (0.2-1.3) mg/dL AST 137 H (14-36) U/L ALT 84 H (4-34) U/L Alkaline Phosphatase 48 (38-126) U/L Total Protein 7.9 (6.3-8.2) g/dL Albumin 5.0 (3.5-5.0) g/dL Lipase 175 (23-300) U/L Serum Alcohol 402 H* mg/dL Disposition Condition: Stable
[2024-05-14] MEDS: SODIUM CHLORIDE 0.9% 500 ML 500 ML IV STA ×2 (10:14→13:40)
[2024-05-14] MEDS: SODIUM CHLORIDE 0.9% 1,000 ML IV STA (10:14)
[2024-05-14 10:25] LABS: Anisocytosis Slight; Basophils % (A) 1 %; Eosinophils % (A) 1 %; HCT 42.5 % (34.0-46.0); HGB 13.3 gm/dL (11.4-16.0); Lymphocytes # (A) 0.6 k/uL (1.0-4.8); Lymphocytes % (A) 28 %; MCH 30.8 pg (25.0-35.0); MCHC 31.3 g/dL (31.0-37.0); MCV 98.4 fL (80.0-100.0); Macrocytosis Slight; Monocytes # (A) 0.1 k/uL (0-1.0); Monocytes % (A) 6 %; Neutrophils # (A) 1.2 k/uL (1.3-7.7); Neutrophils % (A) 61 %; RBC 4.32 m/uL (3.80-5.40); RDW 16.4 % (11.5-15.5)
[2024-05-14 10:40] LABS: ALT 84 U/L (4-34); AST 137 U/L (14-36); African American GFR (CKD) >90 (>60 ml/min/1.73 sqM); Alkaline Phosphatase 48 U/L (38-126); Anion Gap 27 mmol/L; Blood Urea Nitrogen 13 mg/dL (7-17); Calcium 8.7 mg/dL (8.4-10.2); Carbon Dioxide 17 mmol/L (22-30); Chloride 99 mmol/L (98-107); Glucose 61 mg/dL (74-99); Lipase 175 U/L (23-300); Magnesium 1.5 mg/dL (1.6-2.3); Non-African American GFR(CKD) 85 (>60 ml/min/1.73 sqM); Phosphorus 5.4 mg/dL (2.5-4.5); Potassium 4.1 mmol/L (3.5-5.1); Sodium 143 mmol/L (137-145); Total Protein 7.9 g/dL (6.3-8.2)
[2024-05-14 10:51] LABS: Alcohol 402 mg/dL
[2024-05-14] MEDS ORDERED: LORazepam 1 MG TAB PO PRN ×3 (10:55)
[2024-05-14] MEDS ORDERED: MORPHINE SULFATE 4 MG/ML SYRINGE IV PRN (10:55)
[2024-05-14] MEDS ORDERED: LORazepam 0.5 MG TAB PO PRN (10:55)
[2024-05-14] MEDS ORDERED: NALOXONE 0.4 MG/ML 1 ML VIAL IV PRN (10:55)
[2024-05-14] MEDS ORDERED: DEXTROSE 50% SYRINGE 50 ML IVP PRN ×2 (11:02)
[2024-05-14] MEDS: ONDANSETRON 4 MG/2 ML VIAL IVP PRN (11:42)
[2024-05-14] MEDS: MAGNESIUM SULFATE-D5W PMX 1 GM in DEXTROSE/WATER 1 100ML.BAG IVPB SCH (11:47)
[2024-05-14 12:05] LABS: Platelet Count 91 k/uL (150-450)
--- NOTE | 2024-05-14 12:07 | P.HPIM ---
History of Present Illness H&P Date: 05/14/24 History of Presenting Illness: Patient is a 63-year-old female with a past medical history of EtOH abuse, hypothyroidism status post thyroidectomy, depression, and bipolar disorder. Patient is very well-known to our services and hospital with multiple admissions for alcohol intoxication and withdrawal. Patient presented to the hospital today secondary to EtOH intoxication. Patient had appointment at [facility] for admission this morning at 9:15 AM, however patient reported feeling anxious about rehab and became intoxicated and [facility] would not accept her intoxicated. Patient was brought to the emergency department by her significant other for admission until medically sober with plans for discharge to [facility] tomorrow morning. Patient currently reports feeling anxious, nauseous, and tremulous. She denies having any headache, lightheadedness, dizziness, chest pain, palpitations, shortness of breath, abdominal pain, episodes of vomiting, or experiencing any numbness/tingling/weakness in her extremities. On arrival to our facility, patient underwent evaluation in the emergency department. Vital signs upon arrival show blood pressure 117/83, heart rate 87, respiratory rate 18, temp 97.9 F, and SpO2 of 94% on room air. Labs completed and reviewed. CBC showing bicytopenia with WBC count of 2.0 and platelet count of 91. BMP showing mild hypocarbia with bicarb of 17 and Blood glucose was low at 61. Liver profile showing elevated liver enzymes with AST of 137, ALT of 84, and alkaline phosphatase of 48. Magnesium was low at 1.5. Serum alcohol level was elevated at 402. Patient was admitted under our services. We will provide patient with vigorous IV fluid hydration, CIWA protocol with symptom triggered medication management with benzodiazepines and anticipate discharge tomorrow morning to [facility] for alcohol rehabilitation. Review of systems: Pertinent positives and negatives as discussed in HPI, a complete review of systems was performed and all other systems are negative. Physical exam: Patient seen and fully evaluated at bedside. She reports feeling anxious, nauseous, and tremulous. Vital signs reviewed and stable. General: Nontoxic, no distress and appears stated age. Derm: Skin warm and dry, normal coloration for ethnicity. Head: Atraumatic, normocephalic and symmetric. Eyes: EOMs intact, no lid lag, and anicteric sclera Mouth: no lip lesions, mucus membranes moist Cardiovascular: regular rate and rhythm with normal S1S2, no murmur, positive posterior tibial pulses bilaterally, and cap refill < 2 seconds. Lungs: Respirations even, regular, and unlabored on room air. Lungs CTA bilaterally, no rhonchi, no rales, no wheezing, and no accessory muscle usage. Abdominal: soft, nontender to palpation, no guarding, no appreciable organomegaly Ext: ROM intact. No gross muscle atrophy, no edema, no contractures Neuro: Speech clear, face symmetrical and CN II-XII grossly intact. Patient with upper extremity tremors noted. Psych: Alert and oriented to person, place, time, and situation. Appropriate and pleasant affect. Assessment and Plan of Care: Alcohol intoxication upon arrival Pending Alcohol withdrawal in an active alcoholic with hx of DTs History of alcohol abuse including drinking hand long term and rubbing alcohol Elevated liver enzymes, secondary to daily alcohol abuse and likely underlying alcoholic cirrhosis Bicytopenia, secondary to daily alcohol abuse and likely underlying liver cirrhosis Hypomagnesemia -Order placed for CIWA protocol with close monitoring of CIWA scores and patient to be medicated with Ativan 0.5 mg every 4 hours as needed for CIWA score of 4- 5, Ativan 1 mg every 4 hours for CIWA score of 6-7, Ativan 2 mg every 3 hours CIWA score of 8-9, and Ativan 2 mg every 2 hours for CIWA score of 10 or greater. -IV fluid hydration with D5 0.45% NS at 75 cc/hr -Thiamine 100 mg daily, Multivitamin daily, and Folate 1 mg daily -Seizure, fall, and elopement precautions in place. -Continued close monitoring of electrolytes and replace as needed. -Telemetry monitoring. Hypothyroidism status post thyroidectomy -Continue daily medication regimen with the levothyroxine 150 g daily. Bipolar disorder Depression -Continue daily medication regimen with Lexapro 20 mg daily and Lamictal 100 mg daily. Data and imaging reviewed: -As stated above in HPI. CODE STATUS: Full code DVT prophylaxis: Lovenox Anticipated discharge date: Tomorrow Morning Anticipated discharge place: D/C to [facility] Patient was seen independently by Nurse Pracitioner. This document was prepared using [employer] dictation software. Please allow for errors in lobsterman, while rare they do occur. . I reviewed the documentation as provided by the CURTIS above, who is the original author of this note. I agree with the documented assessment and plan, with the following changes: none Past Medical History Past Medical History: Asthma, Cancer, Hypertension, Thyroid Disorder Additional Past Medical History / Comment(s): History of goiter status post thyroidectomy, questionable history of thyroid cancer although this is not clear, bipolar disorder, depression, history of suicidal ideations, history of drug overdose, alcoholism, seasonal rhinitis, psoriasis, breast cysts, history of broken toes in the right foot, History of Any Multi-Drug Resistant Organisms: None Reported Past Surgical History: No Surgical Hx Reported Additional Past Surgical History / Comment(s): Thyroidectomy 1999, SKIN NEVI REMOVED Past Anesthesia/Blood Transfusion Reactions: Previous Problems w/ Anesthesia, Po stoperative Nausea & Vomiting (PONV) Additional Past Anesthesia/Blood Transfusion Reaction / Comment(s): Lives in a house with two roommates. ETOH. Pt no longer has a drivers license- she has had 2 DUI's. 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 She is seen at [facility]. Past Psychological History: Anxiety, Bipolar, Depression Smoking Status: Never smoker Past Alcohol Use History: Abuse, Daily, Heavy Past Drug Use History: None Reported - Past Family History Father Family Medical History: Cancer Additional Family Medical History / Comment(s): Father at age 64 of esophageal cancer. Father was an alcoholic and had cirrhosis of the liver. Mother Family Medical History: Cancer Additional Family Medical History / Comment(s): Mother of breast cancer at age 42yrs. Medications and Allergies Home Medications Medication Instructions Recorded Confirmed Type Escitalopram [Lexapro] 20 mg PO DAILY 30 Days #30 tab 02/17/24 05/14/24 Rx Folic Acid 1 mg PO DAILY #30 tab 02/17/24 05/14/24 Rx Levothyroxine Sodium [Synthroid] 150 mcg PO DAILY 30 Days #30 tab 02/17/24 05/14/24 Rx Metoprolol Tartrate [Lopressor] 12.5 mg PO BID #60 tab 02/17/24 05/14/24 Rx Multivitamins, Thera [Multivitamin 1 cap PO DAILY #30 tab 02/17/24 05/14/24 Rx (formulary)] Pantoprazole [Protonix] 40 mg PO AC-BID #60 tab 02/17/24 05/14/24 Rx Thiamine [Vitamin B-1] 100 mg PO DAILY #30 tab 02/17/24 05/14/24 Rx lamoTRIgine [LaMICtal] 100 mg PO DAILY #30 tab 02/17/24 05/14/24 Rx Melatonin 10 mg PO HS PRN 05/14/24 05/14/24 History Allergies Allergy/AdvReac Type Severity Reaction Status Date / Time clindamycin Allergy Unknown Rash/Hives Verified 05/14/24 11:51 acetylcysteine AdvReac Anaphylaxis Verified 05/14/24 11:51 [From Mucomyst] citalopram [From Celexa] AdvReac Hallucinati Verified 05/14/24 11:51 ons diphenhydramine HCl AdvReac Rapid Verified 05/14/24 11:51 [From Benadryl] Heart Rate Physical Exam Osteopathic Statement: *. No significant issues noted on an osteopathic structural exam other than those noted in the History and Physical/Consult. Vitals: Vital Signs Temp Pulse Resp BP Pulse Ox 05/14/24 09:28 97.9 F 87 18 117/83 94 L Intake and Output 05/13/24 05/14/24 05/14/24 22:59 06:59 14:59 Other: Weight 77.111 kg Results CBC & Chem 7: 05/14/24 10:18 05/14/24 10:18 Labs: Abnormal Lab Results - Last 24 Hours (Table) 05/14/24 05/14/24 Range/Units 10:18 10:18 WBC 2.0 L (3.8-10.6) k/uL RDW 16.4 H (11.5-15.5) % Carbon Dioxide 17 L (22-30) mmol/L Glucose 61 L (74-99) mg/dL Phosphorus 5.4 H (2.5-4.5) mg/dL Magnesium 1.5 L (1.6-2.3) mg/dL AST 137 H (14-36) U/L ALT 84 H (4-34) U/L Serum Alcohol 402 H* mg/dL
[2024-05-14] MEDS: THIAMINE 100 MG/ML 2 ML VIAL IM STA (12:21)
[2024-05-14] MEDS: MULTIVITAMINS, THERA 1 EACH TAB PO SCH (12:25)
[2024-05-14] MEDS: FOLIC ACID 1 MG TAB PO SCH (12:25)
[2024-05-14] MEDS: LORazepam 1 MG TAB PO PRN (12:32)
[2024-05-14] MEDS ORDERED: MELATONIN 5 MG TABLET PO PRN (13:04)
[2024-05-14] MEDS: DEXTROSE 5%-0.45% NACL 1,000 ML IV SCH (13:15)
[2024-05-14] MEDS: LEVOTHYROXINE 75 MCG TAB PO SCH (14:12)
[2024-05-14] MEDS: lamoTRIgine 100 MG TAB PO SCH (14:12)
[2024-05-14] MEDS: PANTOPRAZOLE 40 MG TABLET PO SCH (18:21)
[2024-05-14] MEDS: LORazepam 2 MG/ML INJ IV PRN (20:26)
[2024-05-14] MEDS: METOPROLOL TARTRATE 12.5 MG TAB PO SCH (20:26)
[2024-05-14 20:56] LABS: Glucose,Whole Blood 181 mg/dL (70-110)
[2024-05-14 23:34] LABS: Glucose,Whole Blood 154 mg/dL (70-110)
[2024-05-15 02:13] VITALS: RESP 17; TEMP 98.9
[2024-05-15] MEDS: LORazepam 2 MG/ML INJ IV PRN ×2 (06:15→09:01)
[2024-05-15 06:32] LABS: Glucose,Whole Blood 100 mg/dL (70-110)
[2024-05-15 08:09] VITALS: BP 144/96; PULSE 67
[2024-05-15] MEDS: ESCITALOPRAM 20 MG TAB PO SCH (08:43)
[2024-05-15] MEDS: THIAMINE 100 MG TAB PO SCH (08:43)
[2024-05-15 08:55] LABS: ALT 68 U/L (8-44); AST 96 U/L (13-35); Alkaline Phosphatase 42 U/L (41-126); Blood Urea Nitrogen 7.7 mg/dL (9.0-27.0); Calcium 7.7 mg/dL (8.7-10.3); Carbon Dioxide 23.1 mmol/L (21.6-31.8); Chloride 95 mmol/L (96-109); Globulin 2.1 g/dL (1.6-3.3); Glucose 111 mg/dL (70-110); Magnesium 1.7 mg/dL (1.5-2.4); Potassium 3.8 mmol/L (3.5-5.5); Sodium 137 mmol/L (135-145); Total Bilirubin 0.8 mg/dL (0.3-1.2); Total Protein 6.1 g/dL (6.2-8.2)
[2024-05-15 09:10] LABS: Basophils # (A) 0.02 X 10*3/uL (0.00-0.10); Basophils % (A) 0.8 %; Eosinophils # (A) 0.03 X 10*3/uL (0.04-0.35); Eosinophils % (A) 1.2 %; HCT 32.5 % (37.2-46.3); HGB 11.4 g/dL (12.0-15.0); Immature Platelet Fraction 8.5 % (1.1-6.1); Lymphocytes % (A) 23.9 %; MCH 32.1 pg (27.0-32.0); MCHC 35.1 g/dL (32.0-37.0); MCV 91.5 FL (80.0-97.0); Mean Platelet Volume 11.7 FL (9.5-12.2); Monocytes # (A) 0.23 X 10*3/uL (0.20-1.00); Monocytes % (A) 9.2 %; NRBC Per 100 WBC 0 X 10*3/uL (0.00-0.01); Neutrophils % (A) 63.7 %; Platelet Count 64 X 10*3/uL (140-440); RBC 3.55 X 10*6/uL (4.10-5.20); RDW 16.5 % (11.5-14.5); WBC 2.51 X 10*3/uL (4.50-10.00)
[2024-05-15] MEDS: PROCHLORPERAZINE INJ 10 MG/2 ML VIAL IVP PRN (10:08)
--- NOTE | 2024-05-15 10:58 | P.DS ---
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 Hypothyroidism status post thyroidectomy. Continue daily medication regimen with the levothyroxine 150 g daily. Bipolar disorder. Continue daily medication regimen with Lexapro 20 mg daily and Lamictal 100 mg daily. Depression. Continue daily medication regimen with Lexapro 20 mg daily and Lamictal 100 mg daily. Hospital Course: Patient is a 63-year-old female with a past medical history of EtOH abuse, hypothyroidism status post thyroidectomy, depression, and bipolar disorder. Patient is very well-known to our services and hospital with multiple admissions for alcohol intoxication and withdrawal. Patient presented to the hospital today secondary to EtOH intoxication. Patient had appointment at [facility] for admission this morning at 9:15 AM, however patient reported feeling anxious about rehab and became intoxicated and [facility] would not accept her intoxicated. Patient was brought to the emergency department by her significant other for admission until medically sober with plans for discharge to [facility] tomorrow morning. Patient currently reports feeling anxious, nauseous, and tremulous. She denies having any headache, lightheadedness, dizziness, chest pain, palpitations, shortness of breath, abdominal pain, episodes of vomiting, or experiencing any numbness/tingling/weakness in her extremities. On arrival to our facility, patient underwent evaluation in the emergency department. Vital signs upon arrival show blood pressure 117/83, heart rate 87, respiratory rate 18, temp 97.9 F, and SpO2 of 94% on room air. Labs completed and reviewed. CBC showing bicytopenia with WBC count of 2.0 and platelet count of 91. BMP showing mild hypocarbia with bicarb of 17 and Blood glucose was low at 61. Liver profile showing elevated liver enzymes with AST of 137, ALT of 84, and alkaline phosphatase of 48. Magnesium was low at 1.5. Serum alcohol level was elevated at 402. Patient was admitted under our services. She was provided with with vigorous IV fluid hydration, CIWA protocol with symptom triggered medication management with benzodiazepines and medically optimized for discharge to inpatient substance abuse treatment program. Pt discharged to [facility] for alcohol rehabilitation. Physical exam: Vital signs reviewed and stable. General: Nontoxic, no distress and appears stated age. Derm: Skin warm and dry, normal coloration for ethnicity. Head: Atraumatic, normocephalic and symmetric. Eyes: EOMs intact, no lid lag, and anicteric sclera Mouth: no lip lesions, mucus membranes moist Cardiovascular: regular rate and rhythm with normal S1S2, no murmur, positive posterior tibial pulses bilaterally, and cap refill < 2 seconds. Lungs: Respirations even, regular, and unlabored on room air. Lungs CTA bilaterally, no rhonchi, no rales, no wheezing, and no accessory muscle usage. Abdominal: soft, nontender to palpation, no guarding, no appreciable orga nomegaly Ext: ROM intact. No gross muscle atrophy, no edema, no contractures Neuro: Speech clear, face symmetrical and CN II-XII grossly intact. Psych: Alert and oriented to person, place, time, and situation. Appropriate and pleasant affect. A total of 33 minutes of time were spent preparing this complex discharge summary. Pt was discharged on 05/15/2024 at 10:54 AM. Patient was seen independently by Nurse Practitioner. This document was prepared using [employer] dictation software. Please allow for errors in lightout examiner while rare they do occur. Patient Condition at Discharge: Stable Plan - Discharge Summary Discharge Rx Participant: Yes New Discharge Prescriptions: Continue Folic Acid 1 mg PO DAILY #30 tab Escitalopram [Lexapro] 20 mg PO DAILY 30 Days #30 tab Multivitamins, Thera [Multivitamin (formulary)] 1 cap PO DAILY #30 tab Pantoprazole [Protonix] 40 mg PO AC-BID #60 tab Levothyroxine Sodium [Synthroid] 150 mcg PO DAILY 30 Days #30 tab Metoprolol Tartrate [Lopressor] 12.5 mg PO BID #60 tab Thiamine [Vitamin B-1] 100 mg PO DAILY #30 tab lamoTRIgine [LaMICtal] 100 mg PO DAILY #30 tab Melatonin 10 mg PO HS PRN PRN Reason: Insomnia Discharge Medication List Escitalopram [Lexapro] 20 mg PO DAILY 30 Days #30 tab 02/17/24 [Rx] Folic Acid 1 mg PO DAILY #30 tab 02/17/24 [Rx] Levothyroxine Sodium [Synthroid] 150 mcg PO DAILY 30 Days #30 tab 02/17/24 [Rx] Metoprolol Tartrate [Lopressor] 12.5 mg PO BID #60 tab 02/17/24 [Rx] Multivitamins, Thera [Multivitamin (formulary)] 1 cap PO DAILY #30 tab 02/17/24 [Rx] Pantoprazole [Protonix] 40 mg PO AC-BID #60 tab 02/17/24 [Rx] Thiamine [Vitamin B-1] 100 mg PO DAILY #30 tab 02/17/24 [Rx] lamoTRIgine [LaMICtal] 100 mg PO DAILY #30 tab 02/17/24 [Rx] Melatonin 10 mg PO HS PRN 05/14/24 [History] Follow up Appointment(s)/Referral(s): [facility] [Primary Care Provider] - 1-2 days (Please call for follow-up appointment.) [facility] [NON-STAFF] - 05/15/24 Patient Instructions/Handouts: Alcohol Withdrawal (DC), Medical Clearance for Substance Abuse Treatment (DC) Activity/Diet/Wound Care/Special Instructions: Activity: As tolerated. Diet: Regular diet Special Instructions: You are being discharged to [facility] for an extended stay for alcohol rehab. Wishing you the best of luck on your journey towards sobriety. Thank you for allowing us to participate in your care, it was truly a pleasure having you for our patient!!! . Discharge Disposition: OTHER INSTITUTION NOT DEFINED
== END 2024-05-15 14:06 | disposition other institution (70) ==
LOC: EC 09:26 → 4SSUR 10:56 → INTOOBSV 10:56 → 4SSUR 15:19
PROVIDERS: ADMIT Internal Medicine; ATTEND Internal Medicine
DX: F10.929 Alcohol use, unspecified with intoxication, unspecified (principal); E89.0 Postprocedural hypothyroidism; F31.9 Bipolar disorder, unspecified; E83.42 Hypomagnesemia; D61.818 Other pancytopenia; I10 Essential (primary) hypertension; J45.909 Unspecified asthma, uncomplicated; Y90.8 Blood alcohol level of 240 mg/100 ml or more; Z79.899 Other long term (current) drug therapy; Z81.1 Family history of alcohol abuse and dependence; Z80.0 Family history of malignant neoplasm of digestive organs
CPT/HCPCS: 96375 ×2; 96376 ×2; 96361; 96365 ×2; 96366; 96372; 99285; 36415; 80053 ×2; 83690; 83735 ×2; 84100; 85025 ×2; G0378 ×2; G0480; J2060 ×2; J0780; J3411; J2405 ×2; J3475; 80320